=== PATIENT | male | born 1975 | race Caucasian/White ===

== ENCOUNTER 2023-09-16 07:58 | Outpatient (OUT) | payer OTHER, SELFPAY ==
[2023-09-16 08:21] LABS: Basophils Percent Auto 0.6 % (0.2-2.0); Eosinophils Absolute Auto 0.2 10^3/uL (0.0-0.7); Eosinophils Percent Auto 3.3 % (0.9-7.0); Hematocrit 47.5 % (42.0-54.0); Hemoglobin 15.9 g/dL (14.0-18.0); Immature Granulocytes Abs Auto 0.03 10^3/uL (0.00-0.03); Immature Granulocytes Pct Auto 0.5 % (0.0-0.5); Lymphocytes Absolute Auto 1.5 10^3/uL (1.2-3.8); Lymphocytes Percent Auto 23.3 % (20.5-60.0); Mean Corpuscular HGB Conc 33.5 g/dL (29.9-35.2); Mean Corpuscular Hemoglobin 28.9 pg (25.9-34.0); Mean Corpuscular Volume 86.4 fL (80.0-94.0); Mean Platelet Volume 8.6 fL (9.5-13.5); Monocytes Absolute Auto 0.6 10^3/uL (0.3-0.8); Neutrophils Percent Auto 63.3 % (43.0-75.0); Platelet Count 263 10^3/uL (150-450); Red Cell Distribution Width 13.8 % (11.0-15.0); White Blood Count 6.3 10^3/uL (4.0-11.0)
[2023-09-16 09:16] LABS: Alanine Aminotransferase 94 U/L (16-63); Albumin Globulin Ratio 1.1; Albumin Level 3.8 g/dL (3.4-5.0); Alkaline Phosphatase 57 U/L (46-116); Anion Gap 12.4; Aspartate Amino Transferase 50 U/L (15-37); BUN Creatinine Ratio 9.7; Bilirubin Total 1.6 mg/dL (0.2-1.0); Calcium 8.7 mg/dL (8.5-10.1); Carbon Dioxide 26.4 mmol/L (21.0-32.0); Chloride 106 mmol/L (98-107); Chol HDL Ratio 3.6; Cholesterol 130 mg/dL (<=200); Estimated GFR (African America >60 (>=60); Estimated GFR (Non-African Ame >60 (>=60); Globulin 3.4 g/dL; Glucose 102 mg/dL (74-106); HDL Cholesterol 36 mg/dL (40-60); Potassium 3.8 mmol/L (3.5-5.1); Sodium 141 mmol/L (136-145); Thyroid Stimulating Hormone 2.544 uIU/mL (0.358-3.740); Total Protein 7.2 g/dL (6.4-8.2); Triglycerides 253 mg/dL (<=150); VLDL CHOLESTEROL 50.6 mg/dL
[2023-09-16 09:47] LABS: Free T4 0.95 ng/dL (0.76-1.46)
== END 2023-09-16 07:59 | disposition home or self-care (01) ==
LOC: LAB 08:02
PROVIDERS: PCP Family Medicine; Visit Provider Family Medicine
DX: Z00.00 Encounter for general adult medical examination without abnormal findings (principal)
CPT/HCPCS: 36415; 80053; 80061; 84439; 84443; 85025

== ENCOUNTER 2025-04-05 08:41 | Outpatient (OUT) | payer OTHER, SELFPAY ==
--- OUTSIDE RECORDS SUMMARY | 2025-04-05 08:45 | XMS_ITS | CCD ---
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 EHR Cmte Secondary malignancies (8 sources) Secondary malignant neoplasm of lymph node; Translations: [Secondary and unspecified malignant neoplasm of lymph nodes of head, face and neck] 07-26-2023 Chronic Comment on above: Problem List clean-u p per request of Phys. EHR Cmte Secondary malignancies (2 sources) Secondary and unspecified malignant neoplasm of lymph nodes of head, face and neck; Translations: [Secondary and unspecified malignant neoplasm of lymph nodes of head, face, and neck] Onset: 02-23-2024 02-24-2024 Chronic Skin and subcutaneous tissue infections (2 sources) Cellulitis of right upper limb; Translations: [Cellulitis of right upper limb] Episodic Thyroid disorders (20 sources) Non-toxic uninodular goiter; Translations: [Nontoxic single thyroid nodule] Onset: 06-13-2023 06-13-2023 Chronic Past or Other Problems Problem Classification Problem Date Documented Da te Episodic/Chronic Diseases of mouth; excluding dental (20 sources) Sialoadenitis; Translations: [Sialoadenitis, unspecified] Onset: 06-13-2023 06-13-2023 Episodic Lymphadenitis (20 sources) Cervical lymphadenopathy; Translations: [Localized enlarged lymph nodes] Onset: 06-13-2023 06-13-2023 Episodic Mycoses (1 source) Pityriasis versicolor; Translations: [Pityriasis versicolor] Onset: 01-10-2019 Episodic Other non-traumatic joint disorders (1 source) Arthralgia of the lower leg; Translations: [Pain in unspecified knee] Onset: 06-09-2014 Episodic Other skin disorders (20 sources) Mass of neck; Translations: [Localized swelling, mass and lump, neck] Onset: 06-13-2023 06-13-2023 Episodic Residual codes; unclassified (1 source) Insomnia; Translations: [Insomnia, unspecified] Onset: 11-01-2017 Episodic Sprains and strains (20 sources) Sprain of cruciate ligament of knee; Translations: [Sprain of unspecified cruciate ligament of unspecified knee, initial encounter] Onset: 06-13-2023 06-13-2023 Episodic Results Test Name Value Interpretation Reference Range Facility CNOVon 12-13-2024 CNOV Office Visit (RADTSA ) SCARLET MAYER ([id number]) 1975 M Date Time Provider Department 12/13/24 2:30 PM YOSEF TAYLOR During your visit today, we recorded the following information about you: Temperature Pulse Respiration Blood pressure 98 degrees 61/minute 16/minute 123/87 Weight 104.6 kg Yosef Taylor MD 12/31/2024 4:59 AM Addendum Radiation Oncology - Follow Up Note PATIENT NAME: Scarlet Mayer PATIENT DIAGNOSIS/PATIENT IDENTIFICATION: Mr. 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 He completed adjuvant radiotherapy to the right neck (60Gy/30) on 05/10/21. He developed recurrence in the LEFT neck and underwent left lingual tonsillectomy, left 1A-5 neck dissection (2/15 nodes, up to 2.6cm, no definite RAJIV) on 02/23/24. He met with the head and neck team at [facility] with recommendation to proceed to post-operative radiation therapy to the left neck for local control which he completed on 05/23/2024 (6000 cGy delivered in 30 fractions). INTERVAL HISTORY: Mr. Mayer returns to clinic today for routine follow-up approximately six months after the completion of his radiation treatments and three months since his last visit on 08/05/2024. In the interim, he had repeat imaging with CT neck and chest on 12/05/2024 showing no evidence of recurrent or metastatic disease. Today he notes some tightness in the area of the neck and is slightly sensitive to touch but otherwise denies any pain or discomfort in the area notes no new lumps or bumps. He does continue with lymphedema therapy and massage for the neck and reports no loss of range of motion. He notes no new sores or ulcers in the mouth and does note some dry mouth with altered taste. He is able to swallow well and eat all consistencies endorses stable energy appetite and hydration with stable weight. ALLERGIES ALLERGIES No Known Allergies MEDICATIONS: Current Outpatient Medications: multivitamin tablet ibuprofen (MOTRIN) 200 mg tablet iv contrast (will be provided with radiology test) iv contrast (will be provided with radiology test) diphenhydrAMINE 12.5 mg/5 mL lidocaine visc 2% MAALOX 200-200-20 mg/5 mL oral liquid 1:1:1 (CPD) iv contrast (will be provided with radiology test) PHYSICAL EXAM: GENERAL: Middle-age gentleman sitting in chair in no acute distress. VITALS: BP 123/87 Pulse 61 Temp 98 Resp 16 Wt 230 lb 9.6 oz (104.6kg) SpO2 98% KPS: 90 HEENT: NC/AT, anicteric sclera HEART: S1S2 LUNGS: non-labored breathing ABDOMEN: soft MUSCULOSKELETAL: no peripheral edema, moves all extremities. NEURO: no focal deficit; AANDO X3. RADIOLOGIC DATA: CT Neck (12/05/2024) IMPRESSION: No recurrent mass, new mass or lymphadenopathy. CT Chest (12/05/2024) IMPRESSION: No metastatic disease in chest. ASSESSMENT AND PLAN: Mr. 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 He completed adjuvant radiotherapy to the right neck (60Gy/30) on 05/10/21. He developed recurrence in the LEFT neck and underwent left lingual tonsillectomy, left 1A-5 neck dissection (2/15 nodes, up to 2.6cm, no definite RAJIV) on 02/23/24. He met with the head and neck team at [facility] with recommendation to proceed to post-operative radiation therapy to the left neck for local control which he completed on 05/23/2024 (6000 cGy delivered in 30 fractions). Mr. Mayer is doing well clinically approximately a year and a half out from the completion of his radiation treatments to the head and neck. He is without clinical or radiographic in his disease based on recent CT imaging from 12/05/2024 as well as head and neck examination by Dr. Hill. I will plan to see him back in approximately 6 months for follow-up. The patient is aware to contact the clinic in the interim should any questions or concerns arise. Thank you for allowing us to participate in the care of this patient. Signed by: Yosef Taylor MD I spent a total of 20 minutes on the date of the service which included preparing to see the patient, glad-dp-othy patient care, and counseling and educating the patient/family/caregiv er. This document has been created with the use of voice recognition technology. It may contain inaccuracies, misspellings, inaccurate syntax or inappropriate word context that are a result of the inadequacies/shortcom (more content not included)... Normal [facility] CT CHEST W IVCONon CT CHEST W IVCON * * *Final Report* * * DATE OF EXAM: Dec 05 2024 9:19AM [facility] 0539 - CT CHEST W IVCON / PROCEDURE REASON: Malignant neoplasm of salivary gland (HCC) * * * * Physician Interpretation * * * * RESULT: EXAMINATION: CHEST CT WITH CONTRAST CLINICAL HISTORY: Malignant neoplasm of salivary gland (HCC) Technique: Spiral CT acquisition of the chest from the thoracic inlet to the upper abdomen following IV contrast. MQ: CTCWR_5 Contrast: 100 mL Omnipaque [address] Dose-Length Product: 1070 mGy*cm CT Dose Reduction Employed: Automated exposure control (AEC) Comparison: 07/29/2024 and 05/11/2022 RESULT: Lines, tubes, and devices: None. Lung parenchyma and airways: Trachea and central airways are patent. Unchanged 2 mm nodules left upper lobe (image 50, 53). No new suspicious appearing pulmonary nodules. No consolidative opacity. Pleural space: No pleural effusion or pneumothorax. Lower neck, lymph nodes, and mediastinum: No axillary, supraclavicular, mediastinal or hilar lymphadenopathy by CT size criteria. Heart, pericardium, and thoracic vessels: The heart is normal in size. No pericardial effusion. The thoracic aorta and main pulmonary artery are normal in caliber. Bones/Soft Tissues: No aggressive osseous lesions. Upper abdomen: Status post cholecystectomy. Small hiatal hernia. Carbonation Equipment Operator (topogram) images: Unremarkable. IMPRESSION: No metastatic disease in chest. Transcribe Date/Time: Dec 05 2024 9:39A Dictated by: JANET BRADY MD This examination was interpreted and the report reviewed and electronically signed by: JANET BRADY MD on Dec 05 2024 9:47AM EST Thank you for allowing us to participate in the care of your patient. Should there be any questions regarding this interpretation, please call [phone]. If you are unable to reach us at the number above, please feel free to contact [facility] at [phone]. [id number] Normal [facility] CT NECK SOFT TISSUE W IVCONo n 12-05-2024 CT NECK SOFT TISSUE W IVCON * * *Final Report* * * DATE OF EXAM: Dec 05 2024 9:19AM [facility] 0013 - CT NECK SOFT TISSUE W IVCON / PROCEDURE REASON: Malignant neoplasm of salivary gland (HCC) * * * * Physician Interpretation * * * * RESULT: EXAMINATION: CT NECK SOFT TISSUE W IVCON HISTORY: Metastatic lesions in the left neck status post resection and radiation Technique: CT of the soft tissues of the neck with IV contrast. A series of contiguous helical scans were performed from the skull base to the aortic arch. M: [id number]_1 Contrast: 100 mL Omnipaque [address] Dose-Length Product (DLP): 1070 mGy*cm CT Dose Reduction Employed: Automated exposure control (AEC) COMPARISON: Neck CT 07/29/2024 and neck CTs dating back to 07/16/2021. Outside hospital CT 01/15/2024. RESULT: Postoperative change: There are unchanged postoperative findings related to a partial right pharyngectomy, right lingual tonsillectomy, left palatine tonsillectomy with surgical clips along the dorsal aspect of the right tongue and bilateral neck dissection, as well as a surgical clip along the left parotid gland. There has been interval decrease in stranding along the left buccal soft tissues and slight interval decrease in thickening of the left platysma muscle, likely resolving posttreatment changes. Suprahyoid Neck: Nasopharynx and oropharynx appear normal. Parapharyngeal tissue planes are preserved. Oral cavity and floor of mouth appear normal within constraints of artifact from dental amalgam. Parotid and submandibular spaces are normal. Masonry Instructor spaces appear normal. Infrahyoid Neck: Hypopharynx, larynx, and imaged infraglottic trachea appear normal. Imaged upper esophagus is unremarkable. Thyroid gland is homogeneous without evidence of discrete nodule. Lymph Nodes: No cervical lymphadenopathy by size criteria. Carotid Space: No masses. Patent extracranial carotid systems and internal jugular veins bilaterally. Orbits, Face and Skull Base: Orbital soft tissue planes are preserved. . Paranasal sinuses are clear. . Mastoid air cells and middle ear cavities are clear. . No evidence of an osteolytic or osteoblastic process in the skull base. . . Imaged intracranial contents: No enhancement, no mass effect, and no hydrocephalus. Cervical spine and remaining osseous structures: Alignment is normal. No discrete osteolytic or osteoblastic process. Mild spondylotic changes in the visualized spine. Lung apices: No mass and no focal consolidation in imaged lung apices. Other: Not applicable. Carbonation Equipment Operator (topogram) images: No significant findings. IMPRESSION: No recurrent mass, new mass or lymphadenopathy. Transcribe Date/Time: Dec 05 2024 9:59A Dictated by: LUCIA MARRERO MD This examination was interpreted and the report reviewed and electronically signed by: LUCIA MARRERO MD on Dec 05 2024 10:17AM EST Thank you for allowing us to participate in the care of your patient. Should there be any questions regarding this interpretation, please call [phone]. If you are unable to reach us at the number above, please feel free to contact [facility] at [phone]. [id number] Normal [facility] CNTHERAPYon 08-21-2024 CNTHERAPY OT/PT/Speech Visit (OTACOF) SCARLET MAYER ([id number]) 1975 M Date Time Provider Department 08/21/24 10:00 AM KOMAL MENDOZA Date Time Provider Department [place] 08/21/2024 10:00 AM [id number] MENDOZA [facility] Reason for Visit: OT Progress Note [159] Primary Visit Diagnosis:Lymphedema [I89.0] Other Visit Diagnosis: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] Allergies As of Date: 08/21/2024 (No Known Allergies) Date Reviewed: 08/05/2024 Reviewed by: Denisse Ervin, RN - Fully Assessed Prescriptions as of 08/21/2024 - iv contrast (will be provided with radiology test) CT Chest W -Inject, intravenously, once for 1 dose.No IV access, insert saline lock prior to the beginning of sedation, infusion, injection of imaging exam. Discontinue saline lock post exam. If Pt. has a central line or IVAD, may access for administration according to line specific nursing protocol. Once exam is complete flush line and de-access according to line specific nursing protocol in the CT contrast administration guidelines link. - diphenhydrAMINE 12.5 mg/5 mL lidocaine visc 2% MAALOX 200-200-20 mg/5 mL oral liquid 1:1:1 (CPD) Take (swish) 5 mL to 10 mL by mouth and swallow (allowing to coat the back of the throat) 5 to 6 times a day as needed for discomfort including before meals and before bedtime - multivitamin tablet Take 1 tablet by mouth once daily. - iv contrast (will be provided with radiology test) CT Chest W -Inject, intravenously, once for 1 dose.No IV access, insert saline lock prior to the beginning of sedation, infusion, injection of imaging exam. Discontinue saline lock post exam. If Pt. has a central line or IVAD, may access for administration according to line specific nursing protocol. Once exam is complete flush line and de-access according to line specific nursing protocol in the CT contrast administration guidelines link. - ibuprofen (MOTRIN) 200 mg tablet Take 400 mg by mouth every 6 hours as needed. Normal [facility] 08-06-2024 CNPN Telephone (RADTSA) SCARLET MAYER ([id number]) 1975 M Date Time Provider Department 08/06/24 YOSEF TAYLOR During your visit today, we recorded the following information about you: Denisse Ervin RN 08/06/2024 10:22 AM Signed Paige, pt's , notified of Dr. Taylor's recommendation. She denies questions at this time. JUDY Carranza Saju, MD sent to Denisse Ervin RN Cc: Sahra Infante RN Please let the Bernabe' know that TSH value is within range and he should continue thyroid function assessment with his annual bloodwork with his PCP. Thanks! Yosef Allergies As of Date: 08/06/2024 (No Known Allergies) Date Reviewed: 08/05/2024 Reviewed by: Denisse Ervin RN - Fully Assessed Reason for Visit: Results [95] Prescriptions as of 08/06/2024 - iv contrast (will be provided with radiology test) CT Chest W -Inject, intravenously, once for 1 dose.No IV access, insert saline lock prior to the beginning of sedation, infusion, injection of imaging exam. Discontinue saline lock post exam. If Pt. has a central line or IVAD, may access for administration according to line specific nursing protocol. Once exam is complete flush line and de-access according to line specific nursing protocol in the CT contrast administration guidelines link. - iv contrast (will be provided with radiology test) CT Chest W -Inject, intravenously, once for 1 dose.No IV access, insert saline lock prior to the beginning of sedation, infusion, injection of imaging exam. Discontinue saline lock post exam. If Pt. has a central line or IVAD, may access for administration according to line specific nursing protocol. Once exam is complete flush line and de-access according to line specific nursing protocol in the CT contrast administration guidelines link. - diphenhydrAMINE 12.5 mg/5 mL lidocaine visc 2% MAALOX 200-200-20 mg/5 mL oral liquid 1:1:1 (CPD) Take (swish) 5 mL to 10 mL by mouth and swallow (allowing to coat the back of the throat) 5 to 6 times a day as needed for discomfort including before meals and before bedtime - multivitamin tablet Take 1 tablet by mouth once daily. - iv contrast (will be provided with radiology test) CT Chest W -Inject, intravenously, once for 1 dose.No IV access, insert saline lock prior to the beginning of sedation, infusion, injection of imaging exam. Discontinue saline lock post exam. If Pt. has a central line or IVAD, may access for administration according to line specific nursing protocol. Once exam is complete flush line and de-access according to line specific nursing protocol in the CT contrast administration guidelines link. - ibuprofen (MOTRIN) 200 mg tablet Take 400 mg by mouth every 6 hours as needed. Problem List As Of Date 08/06/2024 Noted Resolved Malignant neoplasm of salivary gland (HCC) [C08*03/10/2021 Lymphedema [I89.0] 03/28/2024 Encounter Status:Closed by DENISSE ERVIN on 08/06/24 Normal [facility] THYROID STIMULATING HORMONEo n 08-06-2024 TSH Qn 3.660 m[IU]/L [facility] TSH Qnon 08-06-2024 Interpretation and review of laboratory results Normal [facility] CNOVon 08-05-2024 CNOV Office Visit (RADTSA ) SCARLET MAYER ([id number]) 1975 M Date Time Provider Department 08/05/24 2:00 PM YOSEF TAYLOR RADTSA During your visit today, we recorded the following information about you: Temperature Pulse Respiration Blood pressure 97.6 degrees 67/minute 16/minute 136/91 Weight 102.9 kg Yosef Taylor MD 10/08/2024 12:08 AM Addendum Radiation Oncology - Follow Up Note PATIENT NAME: Scarlet Mayer PATIENT DIAGNOSIS/PATIENT IDENTIFICATION: Mr. 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 He completed adjuvant radiotherapy to the right neck (60Gy/30) on 05/10/21. He developed recurrence in the LEFT neck and underwent left lingual tonsillectomy, left 1A-5 neck dissection (2/15 nodes, up to 2.6cm, no definite RAJIV) on 02/23/24. He met with the head and neck team at [facility] with recommendation to proceed to post-operative radiation therapy to the left neck for local control which he completed on 05/23/2024 (6000 cGy delivered in 30 fractions). INTERVAL HISTORY: Mr. Mayer returns to clinic today for routine follow-up approximately three months after the completion of his radiation treatments and two months since his last visit on 06/21/2024. In the interim, initial posttreatment imaging with the CT of the neck and chest on 07/29/2024 showed expected posttreatment changes in the left neck with no concern for recurrent disease. Today he reports no pain or discomfort in the head and neck area but does feel that his left ear is little sensitive. His skin is recovered and uses a moisturizer occasionally with no new lumps or bumps in the neck or skin irritation/breakdown. He denies any sores or ulcers in the mouth and does note some dry mouth and altered taste. He is able to swallow well and able to eat most consistencies. He notes stable energy with good appetite and hydration stable weight. He does note some posttreatment swelling/edema in the central neck and he has been following with the lymphedema clinic. He met recently with Dr. Hill and had no concerns on clinical head and neck examination. ALLERGIES ALLERGIES No Known Allergies MEDICATIONS: Current Outpatient Medications: multivitamin tablet ibuprofen (MOTRIN) 200 mg tablet iv contrast (will be provided with radiology test) diphenhydrAMINE 12.5 mg/5 mL lidocaine visc 2% MAALOX 200-200-20 mg/5 mL oral liquid 1:1:1 (CPD) iv contrast (will be provided with radiology test) PHYSICAL EXAM: GENERAL: Middle-age gentleman sitting in chair in no acute distress. VITALS: BP 136/91 Pulse 67 Temp 97.6 Resp 16 Wt 226 lb 13.7 oz (102.9kg) SpO2 98% KPS: 90 HEENT: NC/AT, anicteric sclera HEART: S1S2 LUNGS: non-labored breathing ABDOMEN: soft MUSCULOSKELETAL: no peripheral edema, moves all extremities. NEURO: no focal deficit; AANDO X3. RADIOLOGIC DATA: CT Neck (07/29/2024) IMPRESSION: New soft tissue reticulated stranding in the left submental region, overlying skin thickening and thickening of the left platysma muscle. There is also new asymmetric edema/soft tissue prominence at the left aryepiglottic fold. Findings could be related to progressive radiation-induced changes from the prior examination. No clear new soft tissue mass otherwise within the constraints of motion through the lower oropharynx and upper hypopharynx. No new or evolving suspicious adenopathy by size criteria. CT Chest (07/29/2024) IMPRESSION: 1. Stable CT of the chest. Unchanged appearance of left upper lobe nodules measuring up to 2 mm. No new or enlarging nodules are seen. 2. No evidence of intrathoracic lymphadenopathy. ASSESSMENT AND PLAN: Mr. 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 He completed adjuvant radiotherapy to the right neck (60Gy/30) on 05/10/21. He developed recurrence in the LEFT neck and underwent left lingual tonsillectomy, left 1A-5 neck dissection (2/15 nodes, up to 2.6cm, no definite RAJIV) on 02/23/24. He met with the head and neck team at [facility] with recommendation to proceed to post-operative radiation therapy to the left neck for local control which he completed on 05/23/2024 (6000 cGy delivered in 30 fractions). Mr. Mayer is doing as expected approximately 3 months after completion of his postoperative radiation treatments to the left head and neck havi (more content not included)... Normal [facility] TSH SerPl-aCncon 08-05-2024 TSH Qn 3.660 m[IU]/L Normal 0.270-4.200 [facility] Comment on above: Order Comment: Speci men Type: BLOOD SPECIMENOrdering Facility: [facility] Address: [address] [place] [address] Performed By: #### 3 016-3 ####[facility] LABCLIA [id number] [place] [address] [place] [address] CHEST W IVCONon 4 CT CHEST W IVCON * * *Final Report* * * DATE OF EXAM: Jul 29 2024 10:18AM [facility] 0539 - CT CHEST W IVCON / PROCEDURE REASON: multiple diagnoses * * * * Physician Interpretation * * * * RESULT: EXAMINATION: CHEST CT WITH CONTRAST CLINICAL HISTORY: Malignant neoplasm of salivary gland. Technique: Spiral CT acquisition of the chest from the thoracic inlet to the upper abdomen following IV contrast. MQ: [id number]_6 Contrast: 95 mL Omnipaque [address] Radiation dose: Integrated Dose-length product (DLP) for this visit = 1149 mGy*cm CT Dose Reduction Employed: Automated exposure control (AEC) Comparison: CT chest performed 05/11/2022. PET/CT performed 01/15/2024 RESULT: Limitations: None. Lines, tubes, and devices: None. Lung parenchyma and airways: No lobar consolidation is seen. Stable 2 mm nodules are again noted in the left upper lobe (4:44). No new or enlarging nodules are identified. The central airways are widely patent. Pleural space: No pleural effusion. No pleural thickening. Lower neck, lymph nodes, and mediastinum: The imaged thyroid gland is normal. No lymphadenopathy in the supraclavicular, axillary, mediastinal, or hilar regions. Heart, pericardium, and thoracic vessels: The thoracic aorta and main pulmonary artery are normal in caliber. The cardiac chambers are normal in size. No coronary artery atherosclerotic calcifications are noted, although the study is not optimized for coronary assessment. No pericardial effusion or thickening. Bones and soft tissues: No destructive bone lesion. Chest wall is unremarkable. Upper abdomen: No abnormality in the imaged upper abdomen. Localizer images: No additional findings. IMPRESSION: 1. Stable CT of the chest. Unchanged appearance of left upper lobe nodules measuring up to 2 mm. No new or enlarging nodules are seen. 2. No evidence of intrathoracic lymphadenopathy. Transcribe Date/Time: Jul 29 2024 4:10P Dictated by: MOI ROSSI MD This examination was interpreted and the report reviewed and electronically signed by: MOI ROSSI MD on Jul 29 2024 4:19PM EST Thank you for allowing us to participate in the care of your patient. Should there be any questions regarding this interpretation, please call [phone]. If you are unable to reach us at the number above, please feel free to contact [facility] at [phone]. [id number] Normal [facility] CT Chest W contrast [place] IMPRESSION: 1. Stable CT of the chest. Unchanged appearance of left upper lobe nodules measuring up to 2 mm. No new or enlarging nodules are seen. 2. No evidence of intrathoracic lymphadenopathy. Transcribe Date/Time: Jul 29 2024 4:10P Dictated by: MOI ROSSI MD This examination was interpreted and the report reviewed and electronically signed by: MOI ROSSI MD on Jul 29 2024 4:19PM EST Thank you for allowing us to participate in the care of your patient. Should there be any questions regarding this interpretation, please call [phone]. If you are unable to reach us at the number above, please feel free to contact [facility] at [phone]. 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 Technique: Spiral CT acquisition of the chest from the thoracic inlet to the upper abdomen following IV contrast. MQ: CTCW_6 Contrast: 95 mL Omnipaque [address] Radiation dose: Integrated Dose-length product (DLP) for this visit = 1149 mGy*cm CT Dose Reduction Employed: Automated exposure control (AEC) Comparison: CT chest performed 05/11/2022. PET/CT performed 01/15/2024 RESULT: Limitations: None. Lines, tubes, and devices: None. Lung parenchyma and airways: No lobar consolidation is seen. Stable 2 mm nodules are again noted in the left upper lobe (4:44). No new or enlarging nodules are identified. The central airways are widely patent. Pleural space: No pleural effusion. No pleural thickening. Lower neck, lymph nodes, and mediastinum: The imaged thyroid gland is normal. No lymphadenopathy in the supraclavicular, axillary, mediastinal, or hilar regions. Heart, pericardium, and thoracic vessels: The thoracic aorta and main pulmonary artery are normal in caliber. The cardiac chambers are normal in size. No coronary artery atherosclerotic calcifications are noted, although the study is not optimized for coronary assessment. No pericardial effusion or thickening. Bones and soft tissues: No destructive bone lesion. Chest wall is unremarkable. Upper abdomen: No abnormality in the imaged upper abdomen. Localizer images: No additional findings. 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 Technique: Spiral CT acquisition of the chest from the thoracic inlet to the upper abdomen following IV contrast. MQ: CTCW_6 Contrast: 95 mL Omnipaque [address] Radiation dose: Integrated Dose-length product (DLP) for this visit = 1149 mGy*cm CT Dose Reduction Employed: Automated exposure control (AEC) Comparison: CT chest performed 05/11/2022. PET/CT performed 01/15/2024 RESULT: Limitations: None. Lines, tubes, and devices: None. Lung parenchyma and airways: No lobar consolidation is seen. Stable 2 mm nodules are again noted in the left upper lobe (4:44). No new or enlarging nodules are identified. The central airways are widely patent. Pleural space: No pleural effusion. No pleural thickening. Lower neck, lymph nodes, and mediastinum: The imaged thyroid gland is normal. No lymphadenopathy in the supraclavicular, axillary, mediastinal, or hilar regions. Heart, pericardium, and thoracic vessels: The thoracic aorta and main pulmonary artery are normal in caliber. The cardiac chambers are normal in size. No coronary artery atherosclerotic calcifications are noted, although the study is not optimized for coronary assessment. No pericardial effusion or thickening. Bones and soft tissues: No destructive bone lesion. Chest wall is unremarkable. Upper abdomen: No abnormality in the imaged upper abdomen. Localizer images: No additional findings. IMPRESSION IMPRESSION: 1. Stable CT of the chest. Unchanged appearance of left upper lobe nodules measuring up to 2 mm. No new or enlarging nodules are seen. 2. No evidence of intrathoracic lymphadenopathy. Transcribe Date/Time: Jul 29 2024 4:10P Dictated by: MOI ROSSI MD This examination was interpreted and the report reviewed and electronically signed by: MOI ROSSI MD on Jul 29 2024 4:19PM EST Thank you for allowing us to participate in the care of your patient. Should there be any questions regarding this interpretation, please call [phone]. If you are unable to reach us at the number above, please feel free to contact [facility] at [phone]. 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 Tonsillectomy, pharyngectomy, neck dissection and radiotherapy. History of recurrence in the left neck with previous left lingual tonsillectomy. Comparison: Soft tissue neck CT 05/11/2022, outside hospital Neck CT WITH 03/20/2024 Technique: A series of contiguous helical scans were performed from the skull base to the aortic arch with intravenous contrast. Contrast: Omnipaque 350. Contrast Dose: 95 cc Route of Administration: Intra-Articular CT Radiation dose: Integrated Dose-length product (DLP) for this visit = 1149 mGy*cm. CT Dose Reduction Employed: Automated exposure control (AEC) RESULT: Postoperative change: There are again changes of right tonsillectomy and partial pharyngectomy. Surgical clips in both submandibular regions. Distortion of the normal anatomic planes in the right parapharyngeal fat extending to the submandibular region as well as the left lateral subarticular region from prior surgical intervention. Patchy soft tissue and subcutaneous fat reticulations over the left submental region appears increased from the 03/20/2024 examination. There is also increased overlying skin thickening and thickening of the left distal muscle. There is mild motion to the inferior oropharynx and superior hypopharyngeal region which distorts evaluation of the normal anatomy in this region. There is minimal asymmetric thickening of the left aryepiglottic fold which appears new from the prior exam. Nasopharyngeal mucosal planes are within normal limits. Masonry Instructor spaces are normal. Pterygopalatine fossae are clear and symmetric. Fatty atrophy of the parotid glands. Submandibular glands are absent or severely atrophic. Few surgical clips along the left carotid sheath and right sternocleidomastoid muscle likely from prior ilya dissection. Infrahyoid Neck: Hypopharynx, larynx, and imaged infraglottic trachea appear normal. Imaged upper esophagus is unremarkable. Thyroid gland is homogeneous without evidence of discrete nodule. Lymph Nodes: No cervical lymphadenopathy by size criteria. Carotid Space: No masses. Patent extracranial carotid systems and internal jugular veins bilaterally. Orbits, Face and Skull Base: Orbital soft tissue planes are preserved. Paranasal sinuses are clear. Mastoid air cells and middle ear cavities are clear. No evidence of an osteolytic or osteoblastic process in the skull base. Imaged intracranial contents: No abnormal intracranial enhancement, mass effect, or hydrocephalus. Cervical spine and remaining osseous structures: No discrete osteolytic or osteoblastic process. Mild spondylotic changes in the visualized spine. Lung apices: Imaged lung apices are clear of focal consolidation or mass. Other: Not applicable. IMPRESSION: New soft tissue reticulated stranding in the left submental region, overlying skin thickening and thickening of the left platysma muscle. There is also new asymmetric edema/soft tissue prominence at the left aryepiglottic fold. Findings could be related to progressive radiation-induced changes from the prior examination. No clear new soft tissue mass otherwise within the constraints of motion through the lower oropharynx and upper hypopharynx. No new or evolving suspicious adenopathy by size criteria. Transcribe Date/Time: Jul 29 2024 10:24A Dictated by: PRISCILLA BLEVINS DO This examination was interpreted and the report reviewed and electronically signed by: PRISCILLA BLEVINS DO on Jul 29 2024 10:42AM EST Thank you for allowing us to participate in the care of your patient. Should there be any questions regarding this interpretation, please call [phone]. If you are unable to reach us at the number above, please feel free to contact [facility] at [phone]. [id number] Normal [facility] CT Neck W contrast [place]ordo 12-1 IMPRESSION: New soft tissue reticulated stranding in the left submental region, overlying skin thickening and thickening of the left platysma muscle. There is also new asymmetric edema/soft tissue prominence at the left aryepiglottic fold. Findings could be related to progressive radiation-induced changes from the prior examination. No clear new soft tissue mass otherwise within the constraints of motion through the lower oropharynx and upper hypopharynx. No new or evolving suspicious adenopathy by size criteria. Transcribe Date/Time: Jul 29 2024 10:24A Dictated by: PRISCILLA BLEVINS DO This examination was interpreted and the report reviewed and electronically signed by: PRISCILLA BLEVINS DO on Jul 29 2024 10:42AM EST Thank you for allowing us to participate in the care of your patient. Should there be any questions regarding this interpretation, please call [phone]. If you are unable to reach us at the number above, please feel free to contact [facility] at [phone]. 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 Tonsillectomy, pharyngectomy, neck dissection and radiotherapy. History of recurrence in the left neck with previous left lingual tonsillectomy. Comparison: Soft tissue neck CT 05/11/2022, outside hospital Neck CT WITH 03/20/2024 Technique: A series of contiguous helical scans were performed from the skull base to the aortic arch with intravenous contrast. Contrast: Omnipaque 350. Contrast Dose: 95 cc Route of Administration: Intra-Articular CT Radiation dose: Integrated Dose-length product (DLP) for this visit = 1149 mGy*cm. CT Dose Reduction Employed: Automated exposure control (AEC) RESULT: Postoperative change: There are again changes of right tonsillectomy and partial pharyngectomy. Surgical clips in both submandibular regions. Distortion of the normal anatomic planes in the right parapharyngeal fat extending to the submandibular region as well as the left lateral subarticular region from prior surgical intervention. Patchy soft tissue and subcutaneous fat reticulations over the left submental region appears increased from the 03/20/2024 examination. There is also increased overlying skin thickening and thickening of the left distal muscle. There is mild motion to the inferior oropharynx and superior hypopharyngeal region which distorts evaluation of the normal anatomy in this region. There is minimal asymmetric thickening of the left aryepiglottic fold which appears new from the prior exam. Nasopharyngeal mucosal planes are within normal limits. Masonry Instructor spaces are normal. Pterygopalatine fossae are clear and symmetric. Fatty atrophy of the parotid glands. Submandibular glands are absent or severely atrophic. Few surgical clips along the left carotid sheath and right sternocleidomastoid muscle likely from prior ilya dissection. Infrahyoid Neck: Hypopharynx, larynx, and imaged infraglottic trachea appear normal. Imaged upper esophagus is unremarkable. Thyroid gland is homogeneous without evidence of discrete nodule. Lymph Nodes: No cervical lymphadenopathy by size criteria. Carotid Space: No masses. Patent extracranial carotid systems and internal jugular veins bilaterally. Orbits, Face and Skull Base: Orbital soft tissue planes are preserved. Paranasal sinuses are clear. Mastoid air cells and middle ear cavities are clear. No evidence of an osteolytic or osteoblastic process in the skull base. Imaged intracranial contents: No abnormal intracranial enhancement, mass effect, or hydrocephalus. Cervical spine and remaining osseous structures: No discrete osteolytic or osteoblastic process. Mild spondylotic changes in the visualized spine. Lung apices: Imaged lung apices are clear of focal consolidation or mass. Other: Not applicable. 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 Tonsillectomy, pharyngectomy, neck dissection and radiotherapy. History of recurrence in the left neck with previous left lingual tonsillectomy. Comparison: Soft tissue neck CT 05/11/2022, outside hospital Neck CT WITH 03/20/2024 Technique: A series of contiguous helical scans were performed from the skull base to the aortic arch with intravenous contrast. Contrast: Omnipaque 350. Contrast Dose: 95 cc Route of Administration: Intra-Articular CT Radiation dose: Integrated Dose-length product (DLP) for this visit = 1149 mGy*cm. CT Dose Reduction Employed: Automated exposure control (AEC) RESULT: Postoperative change: There are again changes of right tonsillectomy and partial pharyngectomy. Surgical clips in both submandibular regions. Distortion of the normal anatomic planes in the right parapharyngeal fat extending to the submandibular region as well as the left lateral subarticular region from prior surgical intervention. Patchy soft tissue and subcutaneous fat reticulations over the left submental region appears increased from the 03/20/2024 examination. There is also increased overlying skin thickening and thickening of the left distal muscle. There is mild motion to the inferior oropharynx and superior hypopharyngeal region which distorts evaluation of the normal anatomy in this region. There is minimal asymmetric thickening of the left aryepiglottic fold which appears new from the prior exam. Nasopharyngeal mucosal planes are within normal limits. Masonry Instructor spaces are normal. Pterygopalatine fossae are clear and symmetric. Fatty atrophy of the parotid glands. Submandibular glands are absent or severely atrophic. Few surgical clips along the left carotid sheath and right sternocleidomastoid muscle likely from prior ilya dissection. Infrahyoid Neck: Hypopharynx, larynx, and imaged infraglottic trachea appear normal. Imaged upper esophagus is unremarkable. Thyroid gland is homogeneous without evidence of discrete nodule. Lymph Nodes: No cervical lymphadenopathy by size criteria. Carotid Space: No masses. Patent extracranial carotid systems and internal jugular veins bilaterally. Orbits, Face and Skull Base: Orbital soft tissue planes are preserved. Paranasal sinuses are clear. Mastoid air cells and middle ear cavities are clear. No evidence of an osteolytic or osteoblastic process in the skull base. Imaged intracranial contents: No abnormal intracranial enhancement, mass effect, or hydrocephalus. Cervical spine and remaining osseous structures: No discrete osteolytic or osteoblastic process. Mild spondylotic changes in the visualized spine. Lung apices: Imaged lung apices are clear of focal consolidation or mass. Other: Not applicable. IMPRESSION IMPRESSION: New soft tissue reticulated stranding in the left submental region, overlying skin thickening and thickening of the left platysma muscle. There is also new asymmetric edema/soft tissue prominence at the left aryepiglottic fold. Findings could be related to progressive radiation-induced changes from the prior examination. No clear new soft tissue mass otherwise within the constraints of motion through the lower oropharynx and upper hypopharynx. No new or evolving suspicious adenopathy by size criteria. Transcribe Date/Time: Jul 29 2024 10:24A Dictated by: PRISCILLA BLEVINS, DO This examination was interpreted and the report reviewed and electronically signed by: PRISCILLA BLEVINS DO on Jul 29 2024 10:42AM EST Thank you for allowing us to participate in the care of your patient. Should there be any questions regarding this interpretation, please call [phone]. If you are unable to reach us at the number above, please feel free to contact [facility] at [phone]. [facility] No Panel Informationon 07-29 Radiology Study observation (narrative) [facility] CNPNon 07-25-2024 CNPN Telephone (OTMNCA) SCARLET MAYER ([id number]) 1975 [place] Date Time Provider Department 07/25/24 NEHA HINES During your visit today, we recorded the following information about you: Neha Hines APRN.CATHY 07/25/2024 12:56 PM Signed Received forms from [employer] for [employer] for patient, however this pt is followed by a provider in [place], not seen by our office in 3 yrs. Requested that [employer] forward their request to his current provider. Neha Hines APRN.LATEX SPOOLER Allergies As of Date: 07/25/2024 (No Known Allergies) Date Reviewed: 06/21/2024 Reviewed by: Denisse Ervin LPN - Fully Assessed Reason for Visit: Orders [681] Prescriptions as of 07/25/2024 - iv contrast (will be provided with radiology test) CT Chest W -Inject, intravenously, once for 1 dose.No IV access, insert saline lock prior to the beginning of sedation, infusion, injection of imaging exam. Discontinue saline lock post exam. If Pt. has a central line or IVAD, may access for administration according to line specific nursing protocol. Once exam is complete flush line and de-access according to line specific nursing protocol in the CT contrast administration guidelines link. - diphenhydrAMINE 12.5 mg/5 mL lidocaine visc 2% MAALOX 200-200-20 mg/5 mL oral liquid 1:1:1 (CPD) Take (swish) 5 mL to 10 mL by mouth and swallow (allowing to coat the back of the throat) 5 to 6 times a day as needed for discomfort including before meals and before bedtime - multivitamin tablet Take 1 tablet by mouth once daily. - iv contrast (will be provided with radiology test) CT Chest W -Inject, intravenously, once for 1 dose.No IV access, insert saline lock prior to the beginning of sedation, infusion, injection of imaging exam. Discontinue saline lock post exam. If Pt. has a central line or IVAD, may access for administration according to line specific nursing protocol. Once exam is complete flush line and de-access according to line specific nursing protocol in the CT contrast administration guidelines link. - ibuprofen (MOTRIN) 200 mg tablet Take 400 mg by mouth every 6 hours as needed. Problem List As Of Date 07/25/2024 Noted Resolved Malignant neoplasm of salivary gland (HCC) [C08*03/10/2021 Lymphedema [I89.0] 03/28/2024 Encounter Status:Closed by NEHA HINES on 07/25/[address] [facility] CNTHERAPYon 07-17-2024 CNTHERAPY OT/PT/Speech Visit (OTACOF) SCARLET MAYER ([id number]) 1975 M Date Time Provider Department 07/17/24 11:00 AM KOMAL MENDOZA Date Time Provider Department Center 07/17/2024 11:00 AM [id number] MENDOZA [facility] Reason for Visit: Occupational Therapy [504] Primary Visit Diagnosis:Lymphedema [I89.0] Other Visit Diagnosis: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] Allergies As of Date: 07/17/2024 (No Known Allergies) Date Reviewed: 06/21/2024 Reviewed by: Denisse Ervin LPN - Fully Assessed Prescriptions as of 07/17/2024 - iv contrast (will be provided with radiology test) CT Chest W -Inject, intravenously, once for 1 dose.No IV access, insert saline lock prior to the beginning of sedation, infusion, injection of imaging exam. Discontinue saline lock post exam. If Pt. has a central line or IVAD, may access for administration according to line specific nursing protocol. Once exam is complete flush line and de-access according to line specific nursing protocol in the CT contrast administration guidelines link. - diphenhydrAMINE 12.5 mg/5 mL lidocaine visc 2% MAALOX 200-200-20 mg/5 mL oral liquid 1:1:1 (CPD) Take (swish) 5 mL to 10 mL by mouth and swallow (allowing to coat the back of the throat) 5 to 6 times a day as needed for discomfort including before meals and before bedtime - multivitamin tablet Take 1 tablet by mouth once daily. - iv contrast (will be provided with radiology test) CT Chest W -Inject, intravenously, once for 1 dose.No IV access, insert saline lock prior to the beginning of sedation, infusion, injection of imaging exam. Discontinue saline lock post exam. If Pt. has a central line or IVAD, may access for administration according to line specific nursing protocol. Once exam is complete flush line and de-access according to line specific nursing protocol in the CT contrast administration guidelines link. - ibuprofen (MOTRIN) 200 mg tablet Take 400 mg by mouth every 6 hours as needed. Normal [facility] CNTHERAPYon 07-10-2024 CNTHERAPY OT/PT/Speech Visit (OTACOF) SCARLET MAYER ([id number]) 1975 M Date Time Provider Department 07/10/24 11:00 AM KOMAL MENDOZA Date Time Provider Department Center 07/10/2024 11:00 AM [id number] MENDOZA [facility] Reason for Visit: Occupational Therapy [504] Primary Visit Diagnosis:Lymphedema [I89.0] Other Visit Diagnosis: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] Allergies As of Date: 07/10/2024 (No Known Allergies) Date Reviewed: 06/21/2024 Reviewed by: Denisse Ervin LPN - Fully Assessed Prescriptions as of 07/10/2024 - iv contrast (will be provided with radiology test) CT Chest W -Inject, intravenously, once for 1 dose.No IV access, insert saline lock prior to the beginning of sedation, infusion, injection of imaging exam. Discontinue saline lock post exam. If Pt. has a central line or IVAD, may access for administration according to line specific nursing protocol. Once exam is complete flush line and de-access according to line specific nursing protocol in the CT contrast administration guidelines link. - diphenhydrAMINE 12.5 mg/5 mL lidocaine visc 2% MAALOX 200-200-20 mg/5 mL oral liquid 1:1:1 (CPD) Take (swish) 5 mL to 10 mL by mouth and swallow (allowing to coat the back of the throat) 5 to 6 times a day as needed for discomfort including before meals and before bedtime - multivitamin tablet Take 1 tablet by mouth once daily. - iv contrast (will be provided with radiology test) CT Chest W -Inject, intravenously, once for 1 dose.No IV access, insert saline lock prior to the beginning of sedation, infusion, injection of imaging exam. Discontinue saline lock post exam. If Pt. has a central line or IVAD, may access for administration according to line specific nursing protocol. Once exam is complete flush line and de-access according to line specific nursing protocol in the CT contrast administration guidelines link. - ibuprofen (MOTRIN) 200 mg tablet Take 400 mg by mouth every 6 hours as needed. [facility] 07-04-2024 CATHYN Telephone (HEMTSA) LEYLASCARLET ([id number]) 1975 M Date Time Provider Department 07/04/24 YOSEF TAYLOR During your visit today, we recorded the following information about you: Edwardo Garcia RN 07/04/2024 3:05 PM Signed Please sign pended CT orders Thank You! JUDY Lemon Saju, MD 07/04/2024 4:10 PM Signed Signed - thanks! Yosef Allergies As of Date: 07/04/2024 (No Known Allergies) Date Reviewed: 06/21/2024 Reviewed by: Denisse Ervin LPN - Fully Assessed Reason for Visit: Orders [681] Prescriptions as of 07/05/2024 - iv contrast (will be provided with radiology test) CT Chest W -Inject, intravenously, once for 1 dose.No IV access, insert saline lock prior to the beginning of sedation, infusion, injection of imaging exam. Discontinue saline lock post exam. If Pt. has a central line or IVAD, may access for administration according to line specific nursing protocol. Once exam is complete flush line and de-access according to line specific nursing protocol in the CT contrast administration guidelines link. - diphenhydrAMINE 12.5 mg/5 mL lidocaine visc 2% MAALOX 200-200-20 mg/5 mL oral liquid 1:1:1 (CPD) Take (swish) 5 mL to 10 mL by mouth and swallow (allowing to coat the back of the throat) 5 to 6 times a day as needed for discomfort including before meals and before bedtime - multivitamin tablet Take 1 tablet by mouth once daily. - iv contrast (will be provided with radiology test) CT Chest W -Inject, intravenously, once for 1 dose.No IV access, insert saline lock prior to the beginning of sedation, infusion, injection of imaging exam. Discontinue saline lock post exam. If Pt. has a central line or IVAD, may access for administration according to line specific nursing protocol. Once exam is complete flush line and de-access according to line specific nursing protocol in the CT contrast administration guidelines link. - ibuprofen (MOTRIN) 200 mg tablet Take 400 mg by mouth every 6 hours as needed. 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 Lymphedema [I89.0] 03/28/2024 Encounter Status:Closed by EDWARDO GARCIA on 07/05/24 [facility] CNTHERAPYon 07-03-2024 CNTHERAPY OT/PT/Speech Visit (OTACOF) SACRLET MAYER ([id number]) 1975 M Date Time Provider Department 07/03/24 11:00 AM KOMAL MENDOZA Date Time Provider Department Center 07/03/2024 11:00 AM [id number] MENDOZA [facility] Reason for Visit: Occupational Therapy [504] Primary Visit Diagnosis:Lymphedema [I89.0] Allergies As of Date: 07/03/2024 (No Known Allergies) Date Reviewed: 06/21/2024 Reviewed by: Denisse Ervin LPN - Fully Assessed Prescriptions as of 07/03/2024 - diphenhydrAMINE 12.5 mg/5 mL lidocaine visc 2% MAALOX 200-200-20 mg/5 mL oral liquid 1:1:1 (CPD) Take (swish) 5 mL to 10 mL by mouth and swallow (allowing to coat the back of the throat) 5 to 6 times a day as needed for discomfort including before meals and before bedtime - multivitamin tablet Take 1 tablet by mouth once daily. - iv contrast (will be provided with radiology test) CT Chest W -Inject, intravenously, once for 1 dose.No IV access, insert saline lock prior to the beginning of sedation, infusion, injection of imaging exam. Discontinue saline lock post exam. If Pt. has a central line or IVAD, may access for administration according to line specific nursing protocol. Once exam is complete flush line and de-access according to line specific nursing protocol in the CT contrast administration guidelines link. - ibuprofen (MOTRIN) 200 mg tablet Take 400 mg by mouth every 6 hours as needed. 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 Discontinue saline lock post exam. If Pt. has a central line or IVAD, may access for administration according to line specific nursing protocol. Once exam is complete flush line and de-access according to line specific nursing protocol in the CT contrast administration guidelines link. - diphenhydrAMINE 12.5 mg/5 mL lidocaine visc 2% MAALOX 200-200-20 mg/5 mL oral liquid 1:1:1 (CPD) Take (swish) 5 mL to 10 mL by mouth and swallow (allowing to coat the back of the throat) 5 to 6 times a day as needed for discomfort including before meals and before bedtime - multivitamin tablet Take 1 tablet by mouth once daily. - iv contrast (will be provided with radiology test) CT Chest W -Inject, intravenously, once for 1 dose.No IV access, insert saline lock prior to the beginning of sedation, infusion, injection of imaging exam. Discontinue saline lock post exam. If Pt. has a central line or IVAD, may access for administration according to line specific nursing protocol. Once exam is complete flush line and de-access according to line specific nursing protocol in the CT contrast administration guidelines link. - ibuprofen (MOTRIN) 200 mg tablet Take 400 mg by mouth every 6 hours as needed. [facility] CNOVon 06-21-2024 CNOV Office Visit (RADTSA ) SCARLET MAYER ([id number]) 1975 M Date Time Provider Department 06/21/24 10:00 AM YOSEF TAYLOR During your visit today, we recorded the following information about you: Temperature Pulse Respiration Blood pressure 97.1 degrees 76/minute 16/minute 131/88 Weight 102.5 kg Yosef Taylor MD 07/09/2024 4:32 AM Addendum Radiation Oncology - Follow Up Note PATIENT NAME: Scarlet Mayer PATIENT DIAGNOSIS/PATIENT IDENTIFICATION: Mr. 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 He completed adjuvant radiotherapy to the right neck (60Gy/30) on 05/10/21. He developed recurrence in the LEFT neck and underwent left lingual tonsillectomy, left 1A-5 neck dissection (2/15 nodes, up to 2.6cm, no definite RAJIV) on 02/23/24. He met with the head and neck team at [facility] with recommendation to proceed to post-operative radiation therapy to the left neck for local control which he completed on 05/23/2024 (6000 cGy delivered in 30 fractions). Mr. Mayer returns to clinic today for routine follow-up approximately one month after the completion of his radiation treatments. In the interim, he notes improvement in his fatigue as he has been more active and has returned to work. His skin has healed with no breakdown but he does note some sensitivity in the area of the ear which also improves. He reports no pain or discomfort in the head and neck or any sores or ulcers in the mouth. He does have persistent dry mouth and has altered taste which is improving. He reports no voice changes and reports being able to swallow well without choking sensation. He notes he is able to eat most consistencies and reports improving appetite with good hydration and stable weight. At this point I will plan to see him back in approximately 6 to [address] of the neck and chest. He will follow with Dr. Hill as scheduled for continued clinical head and neck examination. The patient is aware to contact the clinic in the interim should any questions or concerns arise. Thank you for allowing us to participate in the care of this patient. Signed by: Ysoef Taylor MD This document has been created with the use of voice recognition technology. It may contain inaccuracies, misspellings, inaccurate syntax or inappropriate word context that are a result of the inadequacies/shortcomi ngs of said technology/software. 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 Discontinue saline lock post exam. If Pt. has a central line or IVAD, may access for administration according to line specific nursing protocol. Once exam is complete flush line and de-access according to line specific nursing protocol in the CT contrast administration guidelines link.Disp: 1 EachRfl: 0 CT NECK SOFT TISSUE W IVCON [[id number]] Order #: [id number] FUTURE [] iv contrast (will be provided with radiology test)Inject 1 Each intravenously one time only for [address] Neck W IVCON No IV access, insert saline lock prior to the sedation, infusion, injection for imaging exam. Discontinue saline lock post exam. If Pt. has a central line or IVAD, may access for administration according to line specific nursing protocol. Once exam is complete flush line and de-access according to line specific nursing protocol in the CT contrast administration guidelines link.Disp: 1 EachRfl: 0 Prescriptions as of 07/09/2024 - iv contrast (will be provided with radiology test) CT Chest W -Inject, intravenously, once for 1 dose.No IV access, insert saline lock prior to the beginning of sedation, infusion, injection of imaging exam. Discontinue saline lock post exam. If Pt. has a central line or IVAD, may access for administration according to line specific nursing protocol. Once exam is complete flush line and de-access according to line specific nursing protocol in the CT contrast administration guidelines link. - diphenhydrAMINE 12.5 mg/5 mL lidocaine visc 2% MAALOX 200-200-20 mg/5 mL oral (more content not included)... [facility] SCARLET MAYER ([id number]) 1975 Date Time Provider Department 06/04/24 YOSEF TAYLOR During your visit today, we recorded the following information about you: Denisse Ervin LPN 06/04/2024 11:39 AM Signed I called to get a post treatment update. Hiro is not home but I did speak Paige, spouse. She said last week was really rough but he is doing better this week. She said his skin reaction is improving. Left neck area is slightly red with dry desquamation. He is currently using OTC lotion to this area. She said he is maintaining his weight and possibly gained a couple pounds. He doesn't c/o dysphagia but does have a dry mouth. She is pushing Hiro to increase his oral fluid intake. She states he's very tired. He is taking Motrin 1-2 times daily. She said his ROM hasn't changed much since completing treatment. He still turns upper body instead of just his neck. They noticed swelling around his right clavicle and had Dr. Hill evaluate it last week during his scheduled follow up. She said Dr. Hill said it's most likely fluid but is not concerned. He has scheduled follow up with Dr. Hill in 6 weeks. He has scheduled follow up with Dr. Taylor 06/21/24 and lymphedema appointment 06/26/24. She feels his symptoms are improving. I encouraged her to have Hiro call with any concerns between now and his follow up. She is thankful for the care he received from our team. JUDY Hopkins Saju, MD 06/04/2024 3:12 PM Signed Thanks! Yosef Allergies As of Date: 06/04/2024 (No Known Allergies) Date Reviewed: 05/22/2024 Reviewed by: Lorna Azevedo MA - Fully Assessed Reason for Visit: Patient Update [1234] Cmt: Nurse Call post radiation Prescriptions as of 06/04/2024 - diphenhydrAMINE 12.5 mg/5 mL lidocaine visc 2% MAALOX 200-200-20 mg/5 mL oral liquid 1:1:1 (CPD) Take (swish) 5 mL to 10 mL by mouth and swallow (allowing to coat the back of the throat) 5 to 6 times a day as needed for discomfort including before meals and before bedtime - multivitamin tablet Take 1 tablet by mouth once daily. - iv contrast (will be provided with radiology test) CT Chest W -Inject, intravenously, once for 1 dose.No IV access, insert saline lock prior to the beginning of sedation, infusion, injection of imaging exam. Discontinue saline lock post exam. If Pt. has a central line or IVAD, may access for administration according to line specific nursing protocol. Once exam is complete flush line and de-access according to line specific nursing protocol in the CT contrast administration guidelines link. - ibuprofen (MOTRIN) 200 mg tablet Take 400 mg by mouth every 6 hours as needed. 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 He completed adjuvant radiotherapy to the right neck (60Gy/30) on 05/10/21. He developed recurrence in the LEFT neck and underwent left lingual tonsillectomy, left 1A-5 neck dissection (2/15 nodes, up to 2.6cm, no definite RAJIV) on 02/23/24. COURSE: post-operative AREA TREATED: Left neck CURRENT DOSE: 5800 cGy in 29 fx PLANNED DOSE: 6000 cGy in 30 fx SUBJECTIVE: Tolerating XRT well and does note some soreness in the area of the left ear as well as some skin irritation and breakdown. He also feels soreness in the roof of the mouth as well as inside the left cheek. He manages discomfort with 40 mg of Motrin 3 times daily. He also notes dry mouth and altered taste and does not like the soda rinse approximately 10 times as well as healios. He denies any pain with swallowing but does get some softer diet and denies any choking. He does endorse fatigue as he has taken a cough work with her appetite and hydration and stable weight. He is using Silvadene on the area of skin irritation/breakdown in addition to moisturizer. EXAM: KPS: 90 General Appearance: Alert and oriented. No acute distress. Radiation dermatitis: Mild IMAGING/LAB RESULTS: None Treatment chart checked: Yes Patient treatment site reviewed and verified:Yes Port films reviewed and current:Yes Medications started: None ASSESSMENT/PLAN: Clinically stable. Toxicity within expected parameters. Continue radiation treatment as planned. Yosef Taylor MD Referring Provider: YOSEF TAYLOR [[id number]] Allergies As of Date: 05/22/2024 (No Known Allergies) Date Reviewed: 05/22/2024 Reviewed by: Lorna Azevedo MA - Fully Assessed Reason for Visit: Malignant neoplasm of salivary gland ( [Other] Cmt: Treatment visit Primary Visit Diagnosis: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] Prescriptions as of 06/10/2024 - diphenhydrAMINE 12.5 mg/5 mL lidocaine visc 2% MAALOX 200-200-20 mg/5 mL oral liquid 1:1:1 (CPD) Take (swish) 5 mL to 10 mL by mouth and swallow (allowing to coat the back of the throat) 5 to 6 times a day as needed for discomfort including before meals and before bedtime - multivitamin tablet Take 1 tablet by mouth once daily. - iv contrast (will be provided with radiology test) CT Chest W -Inject, intravenously, once for 1 dose.No IV access, insert saline lock prior to the beginning of sedation, infusion, injection of imaging exam. Discontinue saline lock post exam. If Pt. has a central line or IVAD, may access for administration according to line specific nursing protocol. Once exam is complete flush line and de-access according to line specific nursing protocol in the CT contrast administration guidelines link. - ibuprofen (MOTRIN) 200 mg tablet Take 400 mg by mouth every 6 hours as needed. 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 He completed adjuvant radiotherapy to the right neck (60Gy/30) on 05/10/21. He developed recurrence in the LEFT neck and underwent left lingual tonsillectomy, left 1A-5 neck dissection (2/15 nodes, up to 2.6cm, no definite RAJIV) on 02/23/24. COURSE: post-operative AREA TREATED: Left neck CURRENT DOSE: 4800 cGy in 24 fx PLANNED DOSE: 6000 cGy in 30 fx SUBJECTIVE: Well and notes some discomfort in the area of skin erythema and uses a moisturizer daily. He has slight area of desquamation in the area of the incision. He reports no discomfort or sores ulcers in the mouth but does feel some sensitivity in the tongue. He notes lack of taste and dry mouth and is doing the baking soda rinse as well as healios. He notes intact swallowing and is able to eat most consistencies and denies any choking sensation. He does note fatigue as he continues to work with her appetite and hydration and stable weight. PHYSICAL EXAM: KPS: 90 General Appearance: Alert and oriented. No acute distress. Radiation dermatitis: Mild Mucositis: No IMAGING/LAB RESULTS: None TOXICITY ASSESSMENT (CTCv4): Dysphagia:grade 1 - Symptomatic, able to eat regular diet Mucositis: grade 0 - No symptoms Radiation dermatitis: grade 1 - Faint erythema or dry desquamation Trismus: grade 0 - No symptoms Voice Changes:grade 0 - No symptoms Xerostomia: grade 1 - Symptomatic (dry or thick saliva) without significant dietary alteration; unstimulated saliva flow >2ml/min Fatigue: grade 1 - Fatigue relieved by rest Pain: grade 1 - Mild pain Taste: grade 1 - Altered taste but no change in diet Treatment chart checked: Yes Patient treatment site reviewed and verified:Yes Port films reviewed and current:Yes Medications started: None ASSESSMENT:Clinically stable. Toxicity within expected parameters. Continue radiation treatment as planned. Yosef Taylor MD Referring Provider: YOSEF TAYLOR [[id number]] Allergies As of Date: 05/15/2024 (No Known Allergies) Date Reviewed: 05/15/2024 Reviewed by: Lorna Azevedo MA - Fully Assessed Reason for Visit: Malignant neoplasm of salivary gland [Other] Cmt: Treatment visit Primary Visit Diagnosis: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] Prescriptions as of 06/04/2024 - diphenhydrAMINE 12.5 mg/5 mL lidocaine visc 2% MAALOX 200-200-20 mg/5 mL oral liquid 1:1:1 (CPD) Take (swish) 5 mL to 10 mL by mouth and swallow (allowing to coat the back of the throat) 5 to 6 times a day as needed for discomfort including before meals and before bedtime - multivitamin tablet Take 1 tablet by mouth once daily. - iv contrast (will be provided with radiology test) CT Chest W -Inject, intravenously, once for 1 dose.No IV access, insert saline lock prior to the beginning of sedation, infusion, injection of imaging exam. Discontinue saline lock post exam. If Pt. has a central line or IVAD, may access for administration according to line specific nursing protocol. Once exam is complete flush line and de-access according to line specific nursing protocol in the CT contrast administration guidelines link. - ibuprofen (MOTRIN) 200 mg tablet Take 400 mg by mouth every 6 hours as needed. 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 He completed adjuvant radiotherapy to the right neck (60Gy/30) on 05/10/21. He developed recurrence in the LEFT neck and underwent left lingual tonsillectomy, left 1A-5 neck dissection (2/15 nodes, up to 2.6cm, no definite RAJIV) on 02/23/24. COURSE: post-operative AREA TREATED: Left neck CURRENT DOSE: 3800 cGy in 19 fx PLANNED DOSE: 6000 cGy in 30 fx SUBJECTIVE: Tolerating XRT well and denies any pain or discomfort in the head and neck including any sores or ulcers in the mouth. He does note some tongue sensitivity and continues to use the baking soda rinse as well as Healios. He does note dry mouth as well as altered taste. He denies any throat pain or difficulty swallowing and is able to eat all consistencies. He does note skin redness without breakdown of the treatment area and uses a moisturizer daily. He does endorse fatigue as he continues to work with stable appetite and hydration and weight. PHYSICAL EXAM: KPS: 90 General Appearance: Alert and oriented. No acute distress. Radiation dermatitis: Mild Mucositis: No Oral cavity and oropharynx: Oral cavity and oropharynx: lips and gums normal, palate elevates normally, tongue mobile and without palpable lesions; dry with thickened saliva. Neck: Normal ROM. No palpable cervical or supraclavicular adenopathy. IMAGING/LAB RESULTS: None TOXICITY ASSESSMENT (CTCv4): Dysphagia:grade 1 - Symptomatic, able to eat regular diet Mucositis: grade 1 - Asymptomatic or mild symtoms; intervention not indicated Radiation dermatitis: grade 1 - Faint erythema or dry desquamation Trismus: grade 0 - No symptoms Voice Changes:grade 0 - No symptoms Xerostomia: grade 1 Fatigue: grade 1 - Fatigue relieved by rest Pain: grade 0 - No symptoms Taste: grade 1 - Altered taste but no change in diet Treatment chart checked: Yes Patient treatment site reviewed and verified:Yes Port films reviewed and current:Yes Medications started: None ASSESSMENT:Clinically stable. Toxicity within expected parameters. Continue radiation treatment as planned. 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 - iv contrast (will be provided with radiology test) CT Chest W -Inject, intravenously, once for 1 dose.No IV access, insert saline lock prior to the beginning of sedation, infusion, injection of imaging exam. Discontinue saline lock post exam. If Pt. has a central line or IVAD, may access for administration according to line specific nursing protocol. Once exam is complete flush line and de-access according to line specific nursing protocol in the CT contrast administration guidelines link. - ibuprofen (MOTRIN) 200 mg tablet Take 400 mg by mouth every 6 hours as needed. 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 He completed adjuvant radiotherapy to the right neck (60Gy/30) on 05/10/21. He developed recurrence in the LEFT neck and underwent left lingual tonsillectomy, left 1A-5 neck dissection (2/15 nodes, up to 2.6cm, no definite RAJIV) on 02/23/24. COURSE: post-operative AREA TREATED: Left neck CURRENT DOSE: 2800 cGy in 14 fx PLANNED DOSE: 6000 cGy in 30 fx SUBJECTIVE: Already XRT well and denies any pain/discomfort in the head and neck or any sores/ulcers. He does note some dry mouth as well as altered taste and has been doing the baking soda rinse several times a day which has been helping with his tongue/gum sensitivity. He reports no pain/difficulty with swallowing or any choking sensation and is able to eat most consistencies. He does have some skin redness without breakdown is using a moisturizer daily and is also using heliosis twice a day. He does endorse fatigue as he continues to work with stable appetite and hydration and weight. Last 4 Encounter Wt Readings: Date: Wt: 05/01/2024 103.4 kg (227 lb 15.3 oz) 04/24/2024 104.7 kg (230 lb 13.2 oz) 04/11/2024 105.8 kg (233 lb 4 oz) 03/25/2024 105.7 kg (233 lb 0.4 oz) PHYSICAL EXAM: KPS: 90 General Appearance: Alert and oriented. No acute distress. Radiation dermatitis: Mild Mucositis: No Oral cavity and oropharynx: lips and gums normal, palate elevates normally, tongue mobile and without palpable lesions; dry with thickened saliva. Neck: Normal ROM. No palpable cervical or supraclavicular adenopathy. IMAGING/LAB RESULTS: None TOXICITY ASSESSMENT (CTCv4): Dysphagia:grade 1 - Symptomatic, able to eat regular diet Mucositis: grade 1 - Asymptomatic or mild symtoms; intervention not indicated Radiation dermatitis: grade 1 - Faint erythema or dry desquamation Trismus: grade 0 - No symptoms Voice Changes:grade 0 - No symptoms Xerostomia: grade 0 - No symptoms Fatigue: grade 1 - Fatigue relieved by rest Pain: grade 0 - No symptoms Taste: grade 1 - Altered taste but no change in diet Treatment chart checked: Yes Patient treatment site reviewed and verified:Yes Port films reviewed and current:Yes Medications started: None ASSESSMENT:Clinically stable. Toxicity within expected parameters. Continue radiation treatment as planned. 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 - iv contrast (will be provided with radiology test) CT Chest W -Inject, intravenously, once for 1 dose.No IV access, insert saline lock prior to the beginning of sedation, infusion, injection of imaging exam. Discontinue saline lock post exam. If Pt. has a central line or IVAD, may access for administration according to line specific nursing protocol. Once exam is complete flush line and de-access according to line specific nursing protocol in the CT contrast administration guidelines link. - ibuprofen (MOTRIN) 200 mg tablet Take 400 mg by mouth every 6 hours as needed. 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 - iv contrast (will be provided with radiology test) CT Chest W -Inject, intravenously, once for 1 dose.No IV access, insert saline lock prior to the beginning of sedation, infusion, injection of imaging exam. Discontinue saline lock post exam. If Pt. has a central line or IVAD, may access for administration according to line specific nursing protocol. Once exam is complete flush line and de-access according to line specific nursing protocol in the CT contrast administration guidelines link. - ibuprofen (MOTRIN) 200 mg tablet Take 400 mg by mouth every 6 hours as needed. 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 - iv contrast (will be provided with radiology test) CT Chest W -Inject, intravenously, once for 1 dose.No IV access, insert saline lock prior to the beginning of sedation, infusion, injection of imaging exam. Discontinue saline lock post exam. If Pt. has a central line or IVAD, may access for administration according to line specific nursing protocol. Once exam is complete flush line and de-access according to line specific nursing protocol in the CT contrast administration guidelines link. - ibuprofen (MOTRIN) 200 mg tablet Take 400 mg by mouth every 6 hours as needed. [facility] CNOVon 04-24-2024 CNOV Office Visit (RADTSA ) SCARLET MAYER ([id number]) 1975 M Date Time Provider Department 04/24/24 3:45 PM YOSEF TAYLOR During your visit today, we recorded the following information about you: Temperature Pulse Respiration Blood pressure 97.4 degrees 68/minute 18/minute 166/101 Weight 104.7 kg Yosef Taylor MD 05/06/2024 11:06 PM Signed Radiation Oncology - On Treatment Review (OTR) Note PATIENT NAME: Scarlet Mayer PATIENT DIAGNOSIS: Mr. 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 He completed adjuvant radiotherapy to the right neck (60Gy/30) on 05/10/21. He developed recurrence in the LEFT neck and underwent left lingual tonsillectomy, left 1A-5 neck dissection (2/15 nodes, up to 2.6cm, no definite RAJIV) on 02/23/24. COURSE: post-operative AREA TREATED: Left neck CURRENT DOSE: 1800 cGy in 9 fx PLANNED DOSE: 6000 cGy in 30 fx SUBJECTIVE: Tolerating XRT well and denies any pain/discomfort or any sores or ulcers in his mouth but does note some sensitivity in his tongue. He does note taste changes with thicker saliva but is able to swallow well and eat most consistencies. He denies any choking sensation or change in his voice. He does endorse fatigue as he continues to work with stable appetite and hydration and weight. Last 5 Encounter Wt Readings: Date: Wt: 05/01/2024 103.4 kg (227 lb 15.3 oz) 04/24/2024 104.7 kg (230 lb 13.2 oz) 04/11/2024 105.8 kg (233 lb 4 oz) 03/25/2024 105.7 kg (233 lb 0.4 oz) 03/18/2024 106 kg (233 lb 11 oz) PHYSICAL EXAM: KPS: 90 General Appearance: Alert and oriented. No acute distress. Radiation dermatitis: No Mucositis: No Oral cavity and oropharynx: lips and gums normal, oral and pharyngeal mucosa moist, tongue mobile and without palpable lesions Neck: Normal ROM. No palpable cervical or supraclavicular adenopathy. IMAGING/LAB RESULTS: None TOXICITY ASSESSMENT (CTCv4): Dysphagia:grade 1 - Symptomatic, able to eat regular diet Mucositis: grade 0 - No symptoms Radiation dermatitis: grade 0 - No symptoms Trismus: grade 0 - No symptoms Voice Changes:grade 0 - No symptoms Xerostomia: grade 1 - Symptomatic (dry or thick saliva) without significant dietary alteration; unstimulated saliva flow >2ml/min Fatigue: grade 1 - Fatigue relieved by rest Pain: grade 0 - No symptoms Treatment chart checked: Yes Patient treatment site reviewed and verified:Yes Port films reviewed and current:Yes Medications started: Yes, BMX ASSESSMENT:Clinically stable. Toxicity within expected parameters. Continue radiation treatment as planned. 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 - iv contrast (will be provided with radiology test) CT Chest W -Inject, intravenously, once for 1 dose.No IV access, insert saline lock prior to the beginning of sedation, infusion, injection of imaging exam. Discontinue saline lock post exam. If Pt. has a central line or IVAD, may access for administration according to line specific nursing protocol. Once exam is complete flush line and de-access according to line specific nursing protocol in the CT contrast administration guidelines link. - ibuprofen (MOTRIN) 200 mg tablet Take 400 mg by mouth every 6 hours as needed. Problem List As Of Date 04/24/2024 Noted Resolved Malignant neoplasm of salivary gland (HCC) [C08*03/10/2021 Lymphedema [I89.0] 03/28/2024 Prescriptions ordered this encounter Disp Refills Start End DIPHENHYDRAMINE-MAALOX -LIDOCAINE ORA* 360 * 1 05/06/2024 Sig: Take 5-10 mL by mouth and swallow (allowing to coat the back of the throat) 5-6 times a day as needed for discomfort including before meals and before bedtime Encounter Status:Closed by YOSEF TAYLOR on 05/06/24 [facility] CNCOon 04-16-2024 CNCO Letter Text [facility] CNTHERAPYon 04-16-2024 CNTHERAPY OT/PT/Speech Visit (MILLICENTCOF) SCARLET MAYER ([id number]) 1975 M Date Time Provider Department 04/16/24 10:00 AM KOMAL MENDOZA Date Time Provider Department Center 04/16/2024 10:00 AM [id number] MENDOZA [facility] Reason for Visit: Occupational Therapy [504] Primary Visit Diagnosis:Lymphedema [I89.0] Other Visit Diagnosis: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 - iv contrast (will be provided with radiology test) CT Chest W -Inject, intravenously, once for 1 dose.No IV access, insert saline lock prior to the beginning of sedation, infusion, injection of imaging exam. Discontinue saline lock post exam. If Pt. has a central line or IVAD, may access for administration according to line specific nursing protocol. Once exam is complete flush line and de-access according to line specific nursing protocol in the CT contrast administration guidelines link. - ibuprofen (MOTRIN) 200 mg tablet Take 400 mg by mouth every 6 hours as needed. [facility] CNOVon 04-11-2024 CNOV Office Visit (RADTSA ) SCARLET MAYER ([id number]) 1975 M Date Time Provider Department 04/11/24 3:30 PM YOSEF TAYLOR RADTSA During your visit today, we recorded the following information about you: Respiration Weight 18/minute 105.8 kg Yosef Taylor MD 04/23/2024 5:18 AM Addendum Radiation Oncology - On Treatment Review (OTR) Note PATIENT NAME: Scarlet Mayer PATIENT DIAGNOSIS: Mr. 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 He completed adjuvant radiotherapy to the right neck (60Gy/30) on 05/10/21. He developed recurrence in the LEFT neck and underwent left lingual tonsillectomy, left 1A-5 neck dissection (2/15 nodes, up to 2.6cm, no definite RAJIV) on 02/23/24. COURSE: post-operative AREA TREATED: Left neck CURRENT DOSE: 200 cGy in 1 fx PLANNED DOSE: 6000 cGy in 30 fx SUBJECTIVE: Tolerated first fraction of XRT well and reports no significant changes from the time of simulation. EXAM: KPS: 90 General Appearance: Alert and oriented. No acute distress. Radiation dermatitis: No IMAGING/LAB RESULTS: None Treatment chart checked: Yes Patient treatment site reviewed and verified:Yes Port films reviewed and current:Yes Medications started: None ASSESSMENT/PLAN: Clinically stable. No signs of toxicity. Continue radiation treatment as planned. We reviewed general precautions/instructio ns during radiation treatment to the head and neck as well as the potential acute toxicities during treatment and their time course. Discussed the importance of a well-balanced diet, hydration, and exercise/activity as tolerated through the course of treatment. 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 - iv contrast (will be provided with radiology test) CT Chest W -Inject, intravenously, once for 1 dose.No IV access, insert saline lock prior to the beginning of sedation, infusion, injection of imaging exam. Discontinue saline lock post exam. If Pt. has a central line or IVAD, may access for administration according to line specific nursing protocol. Once exam is complete flush line and de-access according to line specific nursing protocol in the CT contrast administration guidelines link. - ibuprofen (MOTRIN) 200 mg tablet Take 400 mg by mouth every 6 hours as needed. 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 - iv contrast (will be provided with radiology test) CT Chest W -Inject, intravenously, once for 1 dose.No IV access, insert saline lock prior to the beginning of sedation, infusion, injection of imaging exam. Discontinue saline lock post exam. If Pt. has a central line or IVAD, may access for administration according to line specific nursing protocol. Once exam is complete flush line and de-access according to line specific nursing protocol in the CT contrast administration guidelines link. - ibuprofen (MOTRIN) 200 mg tablet Take 400 mg by mouth every 6 hours as needed. [facility] CNOVSPon 03-25-2024 [facility]LET [facility] ([id number]) 1975 M Date Time Provider Department 03/25/24 3:00 PM JOSE ORTIZ [facility] During your visit today, we recorded the following information about you: Temperature Pulse Respiration Blood pressure 97.7 degrees 74/minute 18/minute 140/87 Weight Height 105.7 kg 1.78 m Holli Junior RN 03/25/2024 2:59 PM Signed Additional intake questions: Has the patient had fever, nausea, vomiting, diarrhea, constipation, fatigue for > 1 week? No Does the patient have a decreased appetite? No Does patient have any new or increased numbness or tingling of extremities? No Is patient interested in fertility information? No Does patient need any prescription refills? No Does patient have an advanced directive in place? No, Patient refused referral to Social Work or Resource Center Electronically Signed By: JUDY Winslow Michael, MD 04/08/2024 6:19 AM Signed [facility] NEW PATIENT VISIT Department of Hematology and Medical Oncology PATIENT NAME: Scarlet Mayer CLINIC NO: [id number] DATE OF SERVICE: 03/25/2024 PCP: Tristian Pacheco MD REFERRING PROVIDER: Yosef Taylor MD DIAGNOSIS: Mucoepidermoid Carcinoma on Unknown Primary STAGE: Cancer Staging (Hyperlink to Activity) No matching staging information was found for the patient. REASON FOR VISIT: To discuss the role of systemic therapy in the management of his resected mucoepidermoid carcinoma ONCOLOGY HISTORY: 01/01 CT Neck with contrast performed on 01/04/21 revealed the following: Impression: There are 2 well-defined masses in the region of concern along the right side of the neck which most likely represent enlarged level 2A lymph nodes measuring up to 3.5 cm in greatest diameter. The lymph nodes may be reactive or may be involved with tumor or infiltrative process such as lymphoma. FDG PET Scan performed on 01/07/21 revealed the following: IMPRESSION: There is redemonstration of pathologically enlarged right level 2 and right lower 3 lymph nodes. There is mild increased FDG activity with a maximum SUV of 3.2 within the right level 3 posteriorly. There is asymmetric radiotracer accumulation within the right shoulder with focal cord posteriorly with a maximum SUV of 7.5. There is no focal masslike abnormality. Direct visualization is recommended. No additional abnormal FDG foci are noted. 02/01 Transoral partial pharyngectomy performed on 01/30/24 confirmed the presence of the following: A. Right pharynx, transoral partial pharyngectomy: - No tumor present. B. Right lingual tonsil, excision (B): - No tumor present. C. Lymph nodes, right neck level 2B, dissection: - Fifteen lymph nodes, negative for carcinoma (0/15). D. Lymph nodes, right neck level 1B and 2A, dissection: - Mucoepidermoid carcinoma (up to 3.7 cm) in two of four lymph nodes (2/4) (see comment). - Negative for extranodal extension. E. Lymph nodes, right neck levels 3, 4, and 5, dissection: - Mucoepidermoid carcinoma (up to 2.0 cm) in three of thirty-four lymph nodes (3/34) (see comment). - Negative for extranodal extension. F. Left tonsil, tonsillectomy: - No tumor present. Comments: A p16 immunohistochemical stain shows strong patchy positive staining but RNA in situ hybridization studies are negative for high-risk Human Papillomavirus. 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 No evidence for metastatic disease to the cervical spine. Multiple abnormal left level 2a lymph nodes as discussed suspicious for recurrent/residual neoplastic disease. 02/04 FDG PET Scan performed on 01/15/24 revealed the Following: IMPRESSION: There is redemonstration of pathologically enlarged right level 2 and right lower 3 lymph nodes. There is mild increased FDG activity with a maximum SUV of 3.2 within the right level 3 posteriorly. There is asymmetric radiotracer accumulation within the right shoulder with focal cord posteriorly with a maximum SUV of 7.5. There is no focal masslike abnormality. Direct visualization is recommended. No additional abnormal FDG foci are noted. 03/06 Left Tonsillectomy with left neck dissection performed on 02/23/24 confirmed the presence of the following: FINAL DIAGNOSIS Outside slides labeled [id number] (collected 02/23/2024) A. Left lingual tonsil, excision: -Benign tonsillar tissue. B. Left prefacial lymph node, biopsy: -Fibroadipose. C. Lymph nodes, left neck level 1A and 1B (more content not included)... [facility] CNOVon 03-20-2024 CNOV Office Visit (RADTSA ) SCARLET MAYER ([id number]) 1975 M Date Time Provider Department 03/20/24 3:00 PM YOSEF TAYLORTSMarcellus During your visit today, we recorded the following information about you: Yosef Taylor MD 04/02/2024 6:41 AM Addendum Radiation Oncology - Follow Up Note PATIENT NAME: Scarlet Mayer PATIENT DIAGNOSIS/PATIENT IDENTIFICATION: per note from Dr. 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 He completed adjuvant radiotherapy to the right neck (60Gy/30) on 05/10/21. He developed recurrence in the LEFT neck and underwent left lingual tonsillectomy, left 1A-5 neck dissection (2/15 nodes, up to 2.6cm, no definite RAJIV) on 02/23/24. Mr. 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 He is recovering without complication. 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 I reviewed his serial imaging and appreciate no clear primary site of disease. He has undergone bilateral tonsillectomies, BOT biopsies, nasoendoscopies, and multiple MRI/PET. I recommend adjuvant radiotherapy to the left neck (1B-5) to 60 Gy in 30 fractions given good regional control following his prior course. He is understandably motivated to avoid a third recurrence, and therefore elective irradiation of the left parotid could be considered, but I feel there is small additional benefit given his pattern of recurrence. He will discuss this with Dr. Taylor in the context of his preferences. He will meet with Dr. Ortiz to discuss the role of adjuvant systemic therapy for MEC.I will also refer him to lymphedema therapy.' He returns today to the radiation medicine clinic here in [place] to continue discussion regarding postoperative radiation therapy to the left head and neck and make local arrangements for treatment delivery. INTERVAL HISTORY: As above, Mr. Mayer underwent left neck dissection on 02/23/[address] Hill and reports recovering well and denies any postoperative complications with wound healing or infection. He does note some persistent discomfort along the jawline which continues to improve. He reports improving swallowing function and was able to eat hamburger slowly yesterday without any choking. ALLERGIES ALLERGIES No Known Allergies MEDICATIONS: Current Outpatient Medications: multivitamin tablet ibuprofen (MOTRIN) 200 mg tablet iv contrast (will be provided with radiology test) PHYSICAL EXAM: GENERAL: middle-aged gentleman sitting in chair in no acute distress. KPS: 90 HEENT: NC/AT, anicteric sclera HEART: S1S2 LUNGS: non-labored breathing ABDOMEN: soft MUSCULOSKELETAL: no peripheral edema, moves all extremities. NEURO: no focal deficit; AANDO X3. PATHOLOGIC DATA: 02/23/2024 RADIOLOGIC DATA: PET/CT (01/15/2024) IMPRESSION: Findings suggest a primary malignancy of the left lingual tonsils with no metastatic disease along the left level 2 and level 3 as above. No evidence of distant lymphadenopathy or metastatic disease, as above. Head and neck: Postsurgical changes are noted consistent with previous resection and lymph node dissection at the right lingual tonsils and within the right side of the neck. No residual right-sided lymphadenopathy is appreciated. There is an enlarged lymph node in the left level 2A measuring 1.5 x 2.4 cm in greatest axial dimension. There is increased FDG activity within maximum SUV of approximately 3.2. Additional prominent but smaller and less FDG avid lymph nodes are noted inferior to this. This is accompanied by soft tissue prominence in the left lingual tonsils partially effacing the left piriform sinus. There is increased FDG activity in this location with a maximum SUV of 3.2. MRI Neck (01/05/2024) IMPRESSION: Degenerative changes of the cervical spine as discussed. No evidence for metastatic disease to the cervical spine. Multiple abnormal left level 2a lymph nodes as discussed suspicious for recurrent/residual neoplastic disease. There are multiple abnormal enhancing nodules within the left neck at level 2a, with the largest measuring around 17 mm short axis. No distinct other abnormal cervical lymph nodes by size criteria. IMPRESSION: Mr. Mayer is a 48 year old male who underwent right p (more content not included)... [facility] CNOVon 03-18-2024 CNOV Office Visit (RACOMN ) LEYLASCARLET ([id number]) 1975 M Date Time Provider Department 03/18/24 9:00 AM MATT MONREAL RACOMN During your visit today, we recorded the following information about you: Temperature Pulse Respiration Blood pressure 97.9 degrees 66/minute 18/minute 144/84 Weight 106 kg Holli Junior RN 03/18/2024 10:11 AM Signed Additional intake questions: Has the patient had fever, nausea, vomiting, diarrhea, constipation, fatigue for > 1 week? No Does the patient have a decreased appetite? No Does patient have any new or increased numbness or tingling of extremities? No Is patient interested in fertility information? No Does patient need any prescription refills? No Does patient have an advanced directive in place? 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 He completed adjuvant radiotherapy to the right neck (60Gy/30) on 05/10/21. He developed recurrence in the LEFT neck and underwent left lingual tonsillectomy, left 1A-5 neck dissection (2/15 nodes, up to 2.6cm, no definite RAJIV) on 02/23/24. HPI: 48 year old male who presents with the above diagnosis, for an opinion regarding the role of radiation therapy in the management of the patient's disease. Final recommendations will be communicated back to the requesting physician by way of the shared medical record, or letter to requesting physician via mail. 01/04/21: Presented with right neck mass. CTA neck demonstrated two nodes in right level 2A measuring up to 3.5cm. 01/07/21: PET showed pathologically enlarged right level 2 and right lower 3 lymph nodes with mild increased FDG activity with a maximum SUV of 3.2 within the right level 3 posteriorly. There was asymmetric radiotracer accumulation within the right shoulder with maximum SUV of 7.5. 01/29/21: Right partial pharyngectomy, right lingual tonsillectomy, left palatine tonsillectomy, and right neck dissection (1B-5) for pT0N2b [5/38 nodes, up to 3.7cm, no RAJIV, intermediate-grade] cM0 mucoepidermoid carcinoma of unknown primary. No primary site identified. 05/10/21: PORT to right neck 1B-5, 60 Gy in 30 fractions under care of Dr. Taylor. 07/2021-04/2022: No evidence of disease recurrence. Stable 2mm CHIO nodule. 01/05/24: MRI neck showed degenerative changes of the spine, with incidental enlarged left 2A nodes. MRI neck showed no primary site. FNA of left neck mass showed recurrent MEC. 01/15/24: PET showed suggested primary malignancy of the left lingual tonsils. No evidence of distant lymphadenopathy or metastatic disease. 02/23/24: Left lingual tonsillectomy, left prefacial lymph node biopsy, left 1A-5 neck dissection. This demonstrated 2/15 nodes involved with metastatic MEC measuring up to 2.6cm. Today, Mr. Mayer presents with his . He is recovering well from surgery. Taking motrin for pain and eating soft solids. Reports some trismus, jaw tightness, neck tightness, and neck edema. No facial numbness, weakness, bleeding, dysphagia, or aspiration. REVIEW OF SYSTEMS: Pertinent positives and negatives listed above in HPI. A complete review of systems was otherwise negative. ALLERGIES: Allergies: No Known Allergies MEDICATIONS: Current Outpatient Medications: multivitamin tablet iv contrast (will be provided with radiology test) ibuprofen (MOTRIN) 200 mg tablet PRIOR RADIOTHERAPY: yes, per hpi Implanted or external electronic device: none Collagen vascular disease or inflammatory bowel disease: none PAST MEDICAL HISTORY: PAST MEDICAL HISTORY No date: Head and neck cancer (HCC) 03/10/2021: Malignant neoplasm of salivary gland (HCC) PAST SURGICAL HISTORY: PAST SURGICAL HISTORY 01/29/2021: CO2 LASER Comment: Transoral-oral cavity cancer 01/29/2021: EXC/DSTRJ LINGUAL TONSIL ANY METHOD SPX; Right Comment: Pharyngectomy, Rt modified Radical neck dissection, Lt tonsil 2012: REMOVAL GALLBLADDER FAMILY HISTORY: FAMILY HISTORY Problem Relation Age of Onset No Known Problems Mother No Known Problems Father No Known Problems Sister No Known Problems Brother Prostate Cancer Paternal Grandfather SOCIAL HISTORY: Scarlet Mayer is and lives in [place] with his . Smoked 0.25ppd for 16 years and quit in 2011. PHYSICAL EXAM: (more content not included)... [facility] OUTSIDE CYTOLOGY SLIDE CIERA Reddy 03-07-2024 CASE REPORT [facility] Comment on above: Order Comment: Speci men Type: FORMALIN-FIXED PARAFFIN-EMBEDDED TISSUE SPECIMENOrdering Facility: AP Outside Review Address: , , Result Comment: [facility] Cytology Report Case: [id number] Authorizing Provider: Yosef Taylor MD Collected: 03/07/2024 03:17 PM Ordering Location: [facility] Received: 03/07/2024 03:14 PM [facility] Pathologist: Alicia Montiel MD Specimen: Slide(s), MASS, LEFT NECK, FINE NEEDLE ASPIRATION, 20 OUTSIDE SLIDES, ([id number]), 01/10/2024 Performed By: #### L [id number] ####[facility] LABCLIA [id number] [address] CLINICAL HISTORY History of mucoepidermoid carcinoma. [facility] Comment on above: Order Comment: Speci men Type: FORMALIN-FIXED PARAFFIN-EMBEDDED TISSUE SPECIMENOrdering Facility: AP Outside Review Address: , , Performed By: #### L [id number] ####[facility] LABIA [id number] [address] DIAGNOSIS COMMENT Dr. Hattie driscoll reviewed select slides of this case and concurs with the interpretation above. [facility] Comment on above: Order Comment: Speci men Type: FORMALIN-FIXED PARAFFIN-EMBEDDED TISSUE SPECIMENOrdering Facility: AP Outside Review Address: , , Performed By: #### L [id number] ####[facility] LABIA [id number] [address] FINAL DIAGNOSIS [facility] Comment on above: Order Comment: Speci men Type: FORMALIN-FIXED PARAFFIN-EMBEDDED TISSUE SPECIMENOrdering Facility: AP Outside Review Address: , , Result Comment: A - Slide(s), Blocks or Slides - MASS, LEFT NECK, FINE NEEDLE ASPIRATION, 20 OUTSIDE SLIDES, ([id number]), 01/10/2024 Positive for malignant cells Morphologically consistent with patient's known recurrent mucoepidermoid carcinoma; see comment Performed By: #### L [id number] ####[facility] LABCLIA [id number] [address] OF [place] FINAL PERFORMING LAB [facility] Comment on above: Order Comment: Speci men Type: FORMALIN-FIXED PARAFFIN-EMBEDDED TISSUE SPECIMENOrdering Facility: AP Outside Review Address: , , Result Comment: Tech nical component, service station operator screening performed at [facility], [address] [facility] [address] CLIA# [id number] Diagnostic interpretation performed at [facility], [address] [place] [address] CLIA# [id number] Buying Intern: James Garza M.D. Performed By: #### L [id number] ####[facility] LABCLIA [id number] [address] OF [place] OUTSIDE SURG PATH SLIDE REVI EWon 03-07-2024 CASE REPORT [facility] Comment on above: Order Comment: Speci men Type: FORMALIN-FIXED PARAFFIN-EMBEDDED TISSUE SPECIMENOrdering Facility: AP Outside Review Address: , , Result Comment: Surg ical Pathology Report Case: [id number] Authorizing Provider: Yosef Taylor MD Collected: 03/07/2024 03:27 PM Ordering Location: [facility] Received: 03/07/2024 03:26 PM [facility] Pathologist: Rich Grubbs MD, PhD Specimen: Slide(s), 38 SLIDES [id number] Performed By: #### L [id number] ####[facility] LABCLIA [id number] [address] [place] DIAGNOSIS COMMENT Although there is focal irregularity at the ilya periphery, definitive extranodal extension is not identified in my opinion. [facility] Comment on above: Order Comment: Speci men Type: FORMALIN-FIXED PARAFFIN-EMBEDDED TISSUE SPECIMENOrdering Facility: AP Outside Review Address: , , Performed By: #### L [id number] ####[facility] LABCLIA [id number] [id number] FINAL DIAGNOSIS [facility] Comment on above: Order Comment: Speci men Type: FORMALIN-FIXED PARAFFIN-EMBEDDED TISSUE SPECIMENOrdering Facility: AP Outside Review Address: , , Result Comment: Outs edgardo slides labeled [id number] (collected 02/23/2024) A. Left lingual tonsil, excision: -Benign tonsillar tissue. B. Left prefacial lymph node, biopsy: -Fibroadipose. C. Lymph nodes, left neck level 1A and 1B, dissection: -Three lymph nodes negative for carcinoma (0/3). -Unremarkable submandibular gland. D. Lymph nodes, left neck level 2A and 2B, dissection: -Metastatic mucoepidermoid carcinoma (2.6 cm) in one of seven lymph nodes (1/7), see comment. E. Lymph nodes, left neck level 3, 4 and 5, dissection: -Metastatic mucoepidermoid carcinoma (2.4 cm) in one of eight lymph nodes (1/8), see comment. Performed By: #### L [id number] ####[facility] LABCLIA [id number] [address] FINAL PERFORMING LAB [facility] Comment on above: Order Comment: Speci men Type: FORMALIN-FIXED PARAFFIN-EMBEDDED TISSUE SPECIMENOrdering Facility: Outside Review Address: , , Result Comment: Diag nostic interpretation performed at [facility], [address] [place] [address] CLIA# [id number] Buying Intern: James Garza M.D. Performed By: #### L [id number] ####[facility] LABCLIA [id number] [address] OF [facility] Su 03-04-2024 CATHYN Telephone (RADboomtrainA) GARLANDSCARLET ZHONG ([id number]) 1975 M Date Time Provider Department 03/04/24 YOSEF TAYLOR During your visit today, we recorded the following information about you: Sahra Infante RN 03/04/2024 3:[address] Taylor spoke to Dr Hill regarding pt. Pt has new HANDN Cancer on the opposite side of where we treated. He would like us to get all records and imaging including images. He would also like all notes and pathology report. He would like pathology sent for an over read thru [facility]. Once he has had a chance to review everything, he will let us know what appts pt needs and what to coordinate. Dr Taylor- Please sign order for pathology overread. Do you want Med onc consult arranged now due to it taking a few weeks for appt? If yes- sign that order too please. Prior pt of Dr Sushil Dominguez- Please request all imaging from [facility]. I did request the PET from [facility] to be pushed over. We will need to ask film library to process these ABEL. Records in HERNANDEZ folder to scan when you're available. I believe I printed everything. Tiff- Please arrange pathology overread once order is signed. Records including Path report are in for Angelica to scan. Done at [facility]. Also please keep an eye on if he orders the med onc consult so we can get this process started as well for Dr kincaid. He is known to him, but last appt was 2020. Thank you all! Sahra Infante, Felicia Taylor 03/05/2024 1:50 PM Signed Records scanned. PET/CT images are uploaded, just waiting for the images from [facility] to come over. Nilsa Dunn 03/05/2024 2:11 PM Addendum Path sent for 2nd opinion Tiff c'cing you in this incase if gets to that point thanks. Sahra Infante, JUDY 03/05/2024 3:[address] Taylor, he would like pt to be seen by rad onc and med onc at [facility] for their opinion/recommendation . Please make referral and pt should be seen same day. Rad onc requested- Dr Matt Monreal, Med Onc- someone specializing in HANDN treatment. Please contact pt with appts. Dr Taylor is happy to speak to him if he has questions about this. HERNANDEZ- please sign these new orders. JUDY Camargo Tiffany 03/06/2024 7:09 AM Signed Email sent to cancer answer line. Emailed cc'd to you clif Nilsa Dunn 03/12/2024 7:10 AM Signed Patient is scheduled. 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 - iv contrast (will be provided with radiology test) CT Chest W -Inject, intravenously, once for 1 dose.No IV access, insert saline lock prior to the beginning of sedation, infusion, injection of imaging exam. Discontinue saline lock post exam. If Pt. has a central line or IVAD, may access for administration according to line specific nursing protocol. Once exam is complete flush line and de-access according to line specific nursing protocol in the CT contrast administration guidelines link. - ibuprofen (MOTRIN) 200 mg tablet Take 400 mg by mouth every 6 hours as needed. Problem List As Of Date 03/04/2024 Noted Resolved Malignant neoplasm of salivary gland (HCC) [C08*03/10/2021 Encounter Status:Closed by CONOR AZEVEDO on 03/14/24 [facility] Automated basophil %Ordered By: Khadar Hill on 02-24-2024 Basophils/100 WBC (Bld) 0.4 % Normal . [facility] Comment on above: Performed By: #### C BC, BMP #### [address] Automated basophil countOrde red By: Khadar Hill on 02-24-2024 Basophils (Bld) [#/Vol] 0.1 10*3/uL Normal 0.0-0.2 [facility] Comment on above: Result Comment: PERF ORMED BY: [place] [address] PATHOLOGIST ORDNANCE TECHNICIAN RACHNA HILL M.D. Performed By: #### C BC, BMP #### [address] Automated blood monocyte cou ntOrdered By: Khadar Hill on 02-24-2024 Monocytes (Bld) [#/Vol] 1.1 10*3/uL High 0.0-0.8 [facility] Comment on above: Performed By: #### C BC, BMP #### [address] Automated eosinophil %Ordere d By: Khadar Hill on 02-24-2024 Eosinophils/100 WBC (Bld) 0.1 % Normal . [facility] Comment on above: Performed By: #### C BC, BMP #### [address] Automated eosinophil countOr dered By: Khadar Hill on 02-24-2024 Eosinophils (Bld) [#/Vol] 0.0 10*3/uL Normal 0.0-0.45 [facility] Comment on above: Performed By: #### C BC, BMP #### [address] Automated monocyte %Ordered By: Khadar Hill on 02-24-2024 Monocytes/100 WBC (Bld) 8.1 % Normal . [facility] Comment on above: Performed By: #### C BC, BMP #### [address] Automated neutrophil %Ordere d By: Khadar Hill on 02-24-2024 Neutrophils/100 WBC (Bld) 82.5 % Normal . [facility] Comment on above: Performed By: #### C BC, BMP #### [address] Basic Metabolic Panelon 02-11 Creatinine Clr Calc Pharmacy 101.70 Normal [facility] Comment on above: Result Comment: PERF ORMED BY: [place] [address] PATHOLOGIST ORDNANCE TECHNICIAN RACHNA HILL M.D. Performed By: #### C BC, BMP #### [address] GFR/1.73 sq M.predicted MDRD (S/P/Bld) [Vol rate/Area] mL/min/{1.73_m2} Normal [facility] Comment on above: Performed By: #### C BC, BMP #### [address] Calcium [Mass/volume] in Ser um or PlasmaOrdered By: Khadar Hill on 02-24-2024 Calcium [Mass/Vol] 8.5 mg/dL Low 8.6-10.3 [facility] Comment on above: Performed By: #### C BC, BMP #### [address] Carbon dioxide, total [Moles /volume] in Serum or PlasmaOrdered By: Khadar Hill on 02-24-2024 CO2 [Moles/Vol] 26.0 mmol/L Normal 21.0-31.0 [facility] Comment on above: Performed By: #### C BC, BMP #### [place] [address] [place] Chloride [Moles/volume] in S vianey or PlasmaOrdered By: Khadar Hill on 02-24-2024 Chloride [Moles/Vol] 106 mmol/L Normal 98-107 [facility] Comment on above: Performed By: #### C BC, BMP #### [address] Complete Blood Count Auto Di ffon 02-24-2024 Mean Corpuscular HGB Conc 34.5 g/dL Normal 32.5-35.6 [facility] Comment on above: Performed By: #### C ITALIA, BMP #### [facility] [address] NRBC% 0.0 /100{WBC} Normal 0-0.5 [facility] Comment on above: Performed By: #### C ITALIA, BMP #### [facility] [address] Creatinine [Mass/volume] in Serum or PlasmaOrdered By: Khadar Hill on 02-24-2024 Creatinine [Mass/Vol] 1.15 mg/dL Normal 0.70-1.30 [facility] Comment on above: Performed By: #### C ITALIA, BMP #### [address] Erythrocyte distribution wid th [Ratio] by Automated countOrdered By: Khadar Hill on 02-24-2024 Erythrocyte distribution width (RBC) [Ratio] 14.5 % Normal 12.0-14.8 [facility] Comment on above: Performed By: #### C ITALIA, BMP #### [address] Erythrocytes [#/volume] in B lood by Automated countOrdered By: Khadar Hill on 02-24-2024 RBC (Bld) [#/Vol] 4.92 10*6/uL Normal 3.90-5.60 [facility] Comment on above: Performed By: #### C ITALIA, BMP #### [address] Glucose [Mass/volume] in Ser um or PlasmaOrdered By: Khadar Hill on 02-24-2024 Glucose [Mass/Vol] 102 mg/dL High 70-100 [facility] Comment on above: ADA recommended refe rence rangeRandom Glucose Reference Range is dependent on time and content of last meal. Glucose of more than 200 mg/dL in a nonstressed, ambulatory subject supports the diagnosis of Diabetes Mellitus. Result Comment: [facility] Glucose Reference Range is dependent on time and content of last meal. Glucose of more than 200 mg/dL in a nonstressed, ambulatory subject supports the diagnosis of Diabetes Mellitus. ADA recommended reference range Performed By: #### C ITALIA, BMP #### [address] Hematocrit [Volume Fraction] of Blood by Automated countOrdered By: Khadar Hill on 02-24-2024 Hematocrit (Bld) [Volume fraction] 42.4 % Normal 38.8-50.0 [facility] Comment on above: Performed By: #### C ITALIA, BMP #### [address] Hemoglobin [Mass/volume] in BloodOrdered By: Khadar Hill on 02-24-2024 Hemoglobin (Bld) [Mass/Vol] 14.6 g/dL Normal 13.0-17.0 [facility] Comment on above: Performed By: #### C ITALIA, BMP #### [address] Leukocytes [#/volume] correc iman for nucleated erythrocytes in Blood by Automated counOrdered By: Khadar Hill on 02-24-2024 WBC corrected for nucl RBC Auto (Bld) [#/Vol] 13.2 10*3/uL High 4.1-10.5 [facility] Leukocytes [#/volume] in Blo od by Automated countOrdered By: Khadar Hill on 02-24-2024 WBC (Bld) [#/Vol] 13.2 10*3/uL High 4.1-10.5 [facility] Comment on above: Performed By: #### C ITALIA, BMP #### [place] [address] [place] Lymphocytes [#/volume] in Bl ood by Automated countOrdered By: Khadar Hill on 02-24-2024 Lymphocytes (Bld) [#/Vol] 1.2 10*3/uL Normal 1.00-4.8 [facility] Comment on above: Performed By: #### C BC, BMP #### [address] Lymphocytes/100 leukocytes i n Blood by Automated countOrdered By: Khadar Hill on 02-24-2024 Lymphocytes/100 WBC (Bld) 8.9 % Normal . [facility] Comment on above: Performed By: #### C BC, BMP #### [address] MCH [Entitic mass] by Automa iman countOrdered By: Khadar Hill on 02-24-2024 MCH (RBC) [Entitic mass] 29.7 pg Normal 27.5-35.2 [facility] Comment on above: Performed By: #### C BC, BMP #### [address] MCHC Auto (RBC) [Mass/Vol]Or dered By: Khadar Hill on 02-24-2024 MCHC (RBC) [Mass/Vol] 34.5 g/dL 32.5-35.6 [facility] MCV [Entitic volume] by Auto mated countOrdered By: Khadar Hill on 02-24-2024 MCV (RBC) [Entitic vol] 86.0 fL Normal 83.5-101 F [facility] Comment on above: Performed By: #### C BC, BMP #### [address] Neutrophils [#/volume] in Bl ood by Automated countOrdered By: Khadar Hill on 02-24-2024 Neutrophils (Bld) [#/Vol] 10.9 10*3/uL High 1.8-7.7 [facility] Comment on above: Performed By: #### C BC, BMP #### [address] No Panel InformationOrdered By: Khadar Hill on 02-24-2024 Estimated GFR (CKD-EPI) > 60.0 mL/Min [facility] Creatinine Clearance (Chem 101.70 [facility] Nucleated erythrocytes [Pres ence] in Blood by Automated countOrdered By: Khadar Hill on 02-24-2024 Nucleated RBC Auto Ql (Bld) 0.0 /100{WBC} 0-0.5 [facility] Platelet mean volume [Entiti c volume] in Blood by Automated countOrdered By: Khadar Hill on 02-24-2024 Platelet mean volume (Bld) [Entitic vol] 7.5 fL Normal 6.6-10.1 [facility] Comment on above: Performed By: #### C BC, BMP #### [address] Platelets [#/volume] in Bloo d by Automated countOrdered By: Khadar Hill on 02-24-2024 Platelets (Bld) [#/Vol] 241 10*3/uL Normal 150-450 [facility] Comment on above: Performed By: #### C BC, BMP #### [place] [address] [place] Potassium [Moles/volume] in Serum or PlasmaOrdered By: Khadar Hill on 02-24-2024 Potassium [Moles/Vol] 4.2 mmol/L Normal 3.5-5.1 [facility] Comment on above: Performed By: #### C BC, BMP #### [address] Serum or plasma anion gap de terminationOrdered By: Khadar Hill on 02-24-2024 Anion gap [Moles/Vol] 10.2 mmol/L Normal 6.0-15.0 [facility] Comment on above: Performed By: #### C BC, BMP #### [place] [address] [place] Sodium [Moles/volume] in Ser um or PlasmaOrdered By: Khadar iHll on 02-24-2024 Sodium [Moles/Vol] 138 mmol/L Normal 136-145 [facility] Comment on above: Performed By: #### C BC, BMP #### [place] [address] [place] Urea nitrogen [Mass/volume] in Serum or PlasmaOrdered By: Khadar Hill on 02-24-2024 Urea nitrogen [Mass/Vol] 18 mg/dL Normal 7-25 [facility] Comment on above: Performed By: #### C BC, [facility] #### [facility] [address] [id number] [facility] Narciso 02-23-2024 L Specimen: [id number] Received: 02/23/24 Status: DAEPravin Porter Num: [id number] Spec Type: Surgical Subm Dr: Khadar Hill DO Tissues: A Tonsils and/or Adenoids (LT LINGUAL TONSIL) B Lymph Node - Regional Resection (LT PRE-FACIAL LN) C Lymph Node - Regional Resection (LT LEVEL 1A/1B) D Lymph Node - Regional Resection (LEVEL 2A/2B) E Lymph Node - Regional Resection (LEVEL 3,4,5) Procedures: HE/53, Gross/Micro L5/3, Gross/Micro L4/2 Age/ Patient Sex Location Account Attending Physician Scarlet Mayer 48/M 4N [id number] Khadar Hill DO SPEC NUM: [id number] RECD: 02/23/24 STATUS: DAEPravin PORTER NUM: [id number] KULDEEP: 02/23/[address]: Khadar Hill DO ENTERED: 02/23/[address] [facility] [address]: SPEC TYPE: Surgical DEPT: S ORDERED: HE/53, Gross/Micro L5/3, Gross/Micro L4/2 ORDERED: HE/53, Gross/Micro L5/3, Gross/Micro L4/2 Supplemental Report Addendum 1 Entered: 03/12/241333 This case was sent to [facility] for consultation. Their diagnosis is as follows: A. Left lingual tonsil, excision: Benign tonsillar tissue. B. Left perifacial lymph node, biopsy: Fibroadipose. C. Lymph nodes, left neck level 1A and 1B, dissection: 3 lymph nodes negative for for carcinoma (0/3). Unremarkable submandibular gland. D. 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 E. Lymph nodes, left neck level 3, 4 and 5, dissection: Metastatic mucoepidermoid carcinoma (2.4 cm) in 1 of 8 lymph nodes (1/8), see comment. ---- Specimen: [id number] Received: 02/23/24 Status: ANDREA Porter Num: [id number] Spec Type: Surgical Subm Dr: Khadar Hill DO Tissues: A Tonsils and/or Adenoids (LT LINGUAL TONSIL) B Lymph Node - Regional Resection (LT PRE-FACIAL LN) C Lymph Node - Regional Resection (LT LEVEL 1A/1B) D Lymph Node - Regional Resection (LEVEL 2A/2B) E Lymph Node - Regional Resection (LEVEL 3,4,5) Procedures: HE/53, Gross/Micro L5/3, Gross/Micro L4/2 ---- Patient: Scarlet Mayer [id number] (Continued) ---- Specimen: [id number] Received: 02/23/24 (Continued) Supplemental Report (Continued) Signed (signature on file) Emil Noel MD 02/27/24 1606 ---- Specimen: [id number] Received: 02/23/24 Status: ANDREA Porter Num: [id number] Spec Type: Surgical Subm Dr: Khadar Hill DO Tissues: A Tonsils and/or Adenoids (LT LINGUAL TONSIL) B Lymph Node - Regional Resection (LT PRE-FACIAL LN) C Lymph Node - Regional Resection (LT LEVEL 1A/1B) D Lymph Node - Regional Resection (LEVEL 2A/2B) E Lymph Node - Regional Resection (LEVEL 3,4,5) Procedures: HE/53, Gross/Micro L5/3, Gross/Micro L4/2 ---- Patient: Scarlet Mayer [id number] (Continued) ---- Specimen: [id number] Received: 02/23/24 (Continued) Supplemental Report (Continued) Please see attached consultation report from [facility] for diagnostic details. Addendum Signed (signature on file) Aaron Moore MD 03/12/24 1507 ---- Pathological Diagnosis A, left lingual tonsil, excision: -Benign lingual tonsil with underlying large benign minor salivary glandular tissue without any other specific pathological alteration -No evidence of malignancy or any other neoplasm identified B, left pre-facial lymph node, biopsy: -Fragment of benign fibroadipose soft tissue without any specific histomorphological alteration C, left level 1A and 1B neck dissection: -3 benign lymph nodes without metastatic tumor (0/3) -A large nodular segment of benign major salivary glandular tissue, also without any specific histopathological alteration D, left level 2A and 2B neck dissection: -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 Normal [facility] Capillary blood glucose maranda urement by glucometer (mass/volume)Ordered By: Khadar Hill on 01-15-2024 Glucose [Mass/Vol] 88 mg/dL Normal [facility] Comment on above: Random Glucose Refer ence Range is dependent on time and content of last meal. Glucose of more than 200 mg/dL in a nonstressed, ambulatory subject supports the diagnosis of Diabetes Mellitus. Result Comment: [facility] Glucose Reference Range is dependent on time and content of last meal. Glucose of more than 200 mg/dL in a nonstressed, ambulatory subject supports the diagnosis of Diabetes Mellitus. PERFORMED BY: [place] [address] PATHOLOGIST ORDNANCE TECHNICIAN RACHNA HILL M.D. Performed By: #### G LULS #### Point of Care testing , PET tumor subq tx strat sb-m ton 01-15-2024 PET tumor subq tx strat sb-mt [facility] Main [place] [address] [place] [address] Nuclear Medicine Report Signed Patient: Scarlet Mayer MR#: [id number] : 1975 Acct:[id number] Age/Sex: 48 / M ADM Date: 01/15/24 Loc: Room: Type: [facility] Attending Dr: Khadar Hill DO Copies to: DO See Orellana II, MD Ordering Provider: Khadar Hill DO Date of Service: 01/15/24 PET/PET tumor subq tx strat sb-mt: left cervical adenopathy PET tumor subq tx strat sb-mt 01/15/2024 11:12 AM SIGNS AND SYMPTOMS: Cervical lymphadenopathy, head and neck cancer PROTOCOL: PET images were obtained of the head and neck and from skull base to mid thigh after intravenous radiotracer administration. After attenuation correction of PET images and low dose CT of the same anatomy, fused PET CT images were generated and reconstructed in axial, sagittal, and coronal planes. COMPARISON: 01/07/2021, 01/05/2024, and 02/22/2021 RADIOPHARMACEUTICAL: 12.34 mCi of intravenous fluorine 18 FDG. BLOOD GLUCOSE: 88 mg/dL FINDINGS: Head and neck: Postsurgical changes are noted consistent with previous resection and lymph node dissection at the right lingual tonsils and within the right side of the neck. No residual right-sided lymphadenopathy is appreciated. There is an enlarged lymph node in the left level 2A measuring 1.5 x 2.4 cm in greatest axial dimension. There is increased FDG activity within maximum SUV of approximately 3.2. Additional prominent but smaller and less FDG avid lymph nodes are noted inferior to this. This is accompanied by soft tissue prominence in the left lingual tonsils partially effacing the left piriform sinus. There is increased FDG activity in this location with a maximum SUV of 3.2. Skull base to mid thigh: There is physiologic radiotracer accumulation within the brain, myocardium, liver, spleen, kidneys, ureters, bladder, and bowel. Mildly FDG avid left level 2 and level 3 lymphadenopathy is redemonstrated with focal abnormal increased FDG accumulation in the left lingual tonsils as seen on the head and neck portion of the exam. No evidence of distant lymphadenopathy or metastatic disease. There is a hiatal hernia with gastric fundus in the lower mediastinum. PET/PET tumor subq tx strat sb-mt IMPRESSION: Findings suggest a primary malignancy of the left lingual tonsils with no metastatic disease along the left level 2 and level 3 as above. No evidence of distant lymphadenopathy or metastatic disease, as above. Impression dictated by: See Mancera M.D.01/15/2024 3:19 PM Dictation Location: [place] [address] Transcribed By: [facility] 01/15/24 1519 Dictated By: See Mancera II, MD 01/15/24 1503 Signed By: 01/15/24 1519 Normal [facility] 01-10-2024 L Specimen: [id number] Received: 01/10/24 Status: ANDREA Porter Num: [id number] Spec Type: Cytology Subm Dr: Khadar Hill DO Tissues: A FNA SLIDES PATH (LT NECK MASS) Procedures: S 100, HE/2, Gross/Micro L4, GFAP, AE1-AE3, CK5 6, CK 7, p63, -, Cyto Int and Re, p40, PAPSTN/16 Age/ Patient Sex Location Account Attending Physician Scarlet Mayer 48/M [place] [id number] Khadar Hill DO SPEC NUM: [id number] RECD: 01/10/24 STATUS: ANDREA PORTER NUM: [id number] KULDEEP: 01/10/24-[address]: Khadar Hill DO ENTERED: 01/10/24-[address] [facility] [address]: SPEC TYPE: Cytology DEPT: CNG ENTERED BY: [id number] RECV BY: [id number] ORDERED: S 100, HE/2, Gross/Micro L4, GFAP, AE1-AE3, CK5 6, CK 7, p63, -, Cyto Int and Re, p40, PAPSTN/16 ORDERED: S 100, HE/2, Gross/Micro L4, GFAP, AE1-AE3, CK5 6, CK 7, p63, -, Cyto Int and Re, p40, PAPSTN/16 Supplemental Report Addendum 1 Entered: 03/13/24-1554 This case was sent to [facility] for consultation. Their diagnosis is as follows: Positive for malignant cells. 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 Please see attached consultation report from [facility] for diagnostic details. Addendum Signed (signature on file) Aaron Moore MD 03/13/24 8195 ---- Pathological Diagnosis Mass, left neck, fine-needle aspiration: Abundant mucoid material with rare groups of atypical epithelial cells, suspicious for recurrent mucoepidermoid carcinoma. ---- Specimen: [id number] Received: 01/10/24 Status: ANDREA Porter Num: [id number] Spec Type: Cytology Subm Dr: Khadar W Murcek,DO Tissues: A FNA SLIDES PATH (LT NECK MASS) Procedures: S 100, HE/2, Gross/Micro L4, GFAP, AE1-AE3, CK5 6, CK 7, p63, -, Cyto Int and Re, p40, PAPSTN/16 ---- Patient: Scarlet Mayer [id number] (Continued) ---- Specimen: [id number] Received: 01/10/24 (Continued) Signed (signature on file) Aaron Moore MD 01/11/24 1823 ---- Specimen: [id number] Received: 01/10/24 Status: ANDREA Porter Num: [id number] Spec Type: Cytology Subm Dr: Khadar Hill DO Tissues: A FNA SLIDES PATH (LT NECK MASS) Procedures: S 100, HE/2, Gross/Micro L4, GFAP, AE1-AE3, CK5 6, CK 7, p63, -, Cyto Int and Re, p40, PAPSTN/16 ---- Patient: Scarlet Mayer [id number] (Continued) ---- Specimen: [id number] Received: 01/10/24 (Continued) Clinical Information History of low grade Mucoepidermoid Ca Gross Description Received in Cytolyt labeled with the patient's name, date of and left neck mass is <1 ml very pale pink clear fixed fluid. 1 cell blocks are prepared. 16smears stained pap are additionally received. (ID/ca) CPT Codes 96148 [id number] ---- ---- Specimen: [id number] Received: 01/10/24 Status: ANDREA Porter Num: [id number] Spec Type: Cytology Subm Dr: Khadar Hill DO Tissues: A FNA SLIDES PATH (LT NECK MASS) Procedures: S 100, HE/2, Gross/Micro L4, GFAP, AE1-AE3, CK5 6, CK 7, p63, -, Cyto Int and Re, p40, PAPSTN/16 ---- Patient: Scarlet Mayer [id number] (Continued) ---- Signed (signature on file) Aaron Moore MD 01/11/24 1823 Normal [facility] CT Chest W contrast [place] IMPRESSION: Stable appearance of the chest. 2 mm left upper lobe nodules, stable. Transcribe Date/Time: May 11 2022 10:51A Dictated by: ADILENE FALCON MD This examination was interpreted and the report reviewed and electronically signed by: ADILENE FALCON MD on May 11 2022 11:11AM EST Thank you for allowing us to participate in the care of your patient. Should there be any questions regarding this interpretation, please call [phone]. If you are unable to reach us at the number above, please feel free to contact [facility] at [phone]. DIVISION OF RADIOLOGY * * *Final Report* * * DATE OF EXAM: May 11 2022 9:22AM [facility] 0539 - CT CHEST W IVCON / PROCEDURE REASON: Malignant neoplasm of head, face and neck (HCC) * * * * Physician Interpretation * * * * RESULT: EXAMINATION: CHEST CT WITH CONTRAST CLINICAL HISTORY: Neoplasm: head/neck, rx monitor or follow up Technique: Spiral CT acquisition of the chest from the thoracic inlet to the upper abdomen following IV contrast. MQ: CTCW_6 Contrast: 150 mL Isovue [address] Radiation dose: Integrated Dose-length product (DLP) for this visit = 895 mGy*cm CT Dose Reduction Employed: Automated exposure control (AEC) Comparison: CT chest 10/12/2021 RESULT: Limitations: None. Lines, tubes, and devices: None. Lung parenchyma and airways: No consolidative process. The trachea and major airways appear patent. 2 mm left upper lobe nodules, image 46, series 4, stable. Pleural space: No pleural effusion. No pleural thickening. Lower neck, lymph nodes, and mediastinum: The imaged thyroid gland is normal. No lymphadenopathy in the supraclavicular, axillary, mediastinal, or hilar regions. Small hiatal hernia is again appreciated. Heart, pericardium, and thoracic vessels: No substantial pericardial effusion. The thoracic aorta is normal in caliber. Bones and soft tissues: No osseous destructive process. Upper abdomen: Limited images through the upper abdomen appears stable. Carbonation Equipment Operator (topogram) images: Unremarkable. DIVISION OF RADIOLOGY Provider, [facility] - 05/11/2022 * * *Final Report* * * DATE OF EXAM: May 11 2022 9:22AM [facility] 0539 - CT CHEST W [facility] / PROCEDURE REASON: Malignant neoplasm of head, face and neck (HCC) * * * * Physician Interpretation * * * * RESULT: EXAMINATION: CHEST CT WITH CONTRAST CLINICAL HISTORY: Neoplasm: head/neck, rx monitor or follow up Technique: Spiral CT acquisition of the chest from the thoracic inlet to the upper abdomen following IV contrast. MQ: CTCW_6 Contrast: 150 mL Isovue [address] Radiation dose: Integrated Dose-length product (DLP) for this visit = 895 mGy*cm CT Dose Reduction Employed: Automated exposure control (AEC) Comparison: CT chest 10/12/2021 RESULT: Limitations: None. Lines, tubes, and devices: None. Lung parenchyma and airways: No consolidative process. The trachea and major airways appear patent. 2 mm left upper lobe nodules, image 46, series 4, stable. Pleural space: No pleural effusion. No pleural thickening. Lower neck, lymph nodes, and mediastinum: The imaged thyroid gland is normal. No lymphadenopathy in the supraclavicular, axillary, mediastinal, or hilar regions. Small hiatal hernia is again appreciated. Heart, pericardium, and thoracic vessels: No substantial pericardial effusion. The thoracic aorta is normal in caliber. Bones and soft tissues: No osseous destructive process. Upper abdomen: Limited images through the upper abdomen appears stable. Carbonation Equipment Operator (topogram) images: Unremarkable. IMPRESSION IMPRESSION: Stable appearance of the chest. 2 mm left upper lobe nodules, stable. Transcribe Date/Time: May 11 2022 10:51A Dictated by: ADILENE FALCON MD This examination was interpreted and the report reviewed and electronically signed by: ADILENE FALCON MD on May 11 2022 11:11AM EST Thank you for allowing us to participate in the care of your patient. Should there be any questions regarding this interpretation, please call [phone]. If you are unable to reach us at the number above, please feel free to contact [facility] at [phone]. [facility] CT Neck W contrast [place] 09-2 IMPRESSION: Slightly increased size of a few left level IIa lymph nodes, although nonenlarged by size criteria. Otherwise stable postoperative changes in the right neck. Transcribe Date/Time: May 11 2022 9:45A Dictated by: ANTONIETTA ZAMORA MD This examination was interpreted and the report reviewed and electronically signed by: ANTONIETTA ZAMORA MD on May 11 2022 9:45AM EST Thank you for allowing us to participate in the care of your patient. Should there be any questions regarding this interpretation, please call [phone]. If you are unable to reach us at the number above, please feel free to contact [facility] at [phone]. 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 Malignant neoplasm of parotid gland. Comparison: 10/12/2021 contrast-enhanced soft tissue neck CT Technique: A series of contiguous helical scans were performed from the skull base to the aortic arch following bolus injection of nonionic contrast: Contrast: Isovue 300. Contrast Dose: 150 cc Route of Administration: IV CT Radiation dose: Integrated Dose-length product (DLP) for this visit = 895 mGy*cm. CT Dose Reduction Employed: Automated exposure control (AEC) RESULT: Postoperative change: Partial right pharyngectomy and right palatine and lingual tonsillectomy and right selective lymph node dissection. Superimposed asymmetric fatty atrophy of the right parotid and right mandibular glands and asymmetric stranding in the upper right carotid space may reflect sequelae of prior postradiation treatment changes, although the degree of stranding in the right carotid space and previously seen reticulation and stranding in the lateral right perimandibular and right neck soft tissues and thickening of the right platysma muscle has improved from the prior exam. Suprahyoid Neck: Unremarkable appearance of the nasopharynx. Stable postoperative changes in the pharynx on the right with disruption of the right parapharyngeal soft tissue planes. The left paravertebral soft tissue planes appear preserved. Stable surgical clips along the posterolateral right tongue and diminished volume along the posterior right tongue and right lingual tonsil likely related to prior resection. Otherwise unremarkable appearance of the oral cavity and floor of mouth within the constraints of streak artifact from dental amalgam. Stable appearance of the parotid and subareolar parenchyma with postradiation treatment changes on the right as noted above. Masonry Instructor spaces appear normal. Infrahyoid Neck: Hypopharynx, larynx, and imaged infraglottic trachea appear normal. Imaged upper esophagus is unremarkable. Thyroid gland is homogeneous without evidence of discrete nodule. Lymph Nodes: No cervical lymphadenopathy by size criteria. Slightly increased size of a left level IIa lymph nodes with similar slightly heterogenous attenuation: Slightly increased size of a left level IIa lymph node now measuring 1.2 cm in short axis (series 4, image 72), previously 1 cm. Slightly increased size of a left level IIa lymph node now measuring 0.9 cm in short axis (series 4, image 79), previously 0.8 cm. Slightly increased size of a left level IIa lymph node now measuring 0.8 cm in short axis (series 2, image 84), previously 0.6 cm. Carotid Space: No mass. Slightly improved postoperative/posttrea tment stranding in the upper right carotid space as above. Surgical clips along the margin of the right internal jugular vein with moderate focal narrowing at the level of the mandibular angle and C2-C3 disc space. Patent extracranial carotid systems and internal jugular veins bilaterally. Orbits and Skull Base: Orbital soft tissue planes are preserved. No evidence of an osteolytic or osteoblastic process in the skull base. Minimal mucosal thickening in the anterior ethmoid air cells, greater on the right. Mild lobulated mucosal thickening in the right maxillary sinus which is new from the prior exam. The mastoid air cells and middle ear cavities are clear. Imaged intracranial contents: No abnormal intracranial enhancement, mass effect, or hydrocephalus. Cervical spine and remaining osseous structures: Straightening of the cervical lordosis with otherwise preserved vertebral body alignment. There are no significant spondylotic changes in the visualized spine. No discrete osteolytic or osteoblastic process. Lung apices: For detailed intrathoracic findings, please see concurrent CT chest which is reported under a separate accession. 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 Malignant neoplasm of parotid gland. Comparison: 10/12/2021 contrast-enhanced soft tissue neck CT Technique: A series of contiguous helical scans were performed from the skull base to the aortic arch following bolus injection of nonionic contrast: Contrast: Isovue 300. Contrast Dose: 150 cc Route of Administration: IV CT Radiation dose: Integrated Dose-length product (DLP) for this visit = 895 mGy*cm. CT Dose Reduction Employed: Automated exposure control (AEC) RESULT: Postoperative change: Partial right pharyngectomy and right palatine and lingual tonsillectomy and right selective lymph node dissection. Superimposed asymmetric fatty atrophy of the right parotid and right mandibular glands and asymmetric stranding in the upper right carotid space may reflect sequelae of prior postradiation treatment changes, although the degree of stranding in the right carotid space and previously seen reticulation and stranding in the lateral right perimandibular and right neck soft tissues and thickening of the right platysma muscle has improved from the prior exam. Suprahyoid Neck: Unremarkable appearance of the nasopharynx. Stable postoperative changes in the pharynx on the right with disruption of the right parapharyngeal soft tissue planes. The left paravertebral soft tissue planes appear preserved. Stable surgical clips along the posterolateral right tongue and diminished volume along the posterior right tongue and right lingual tonsil likely related to prior resection. Otherwise unremarkable appearance of the oral cavity and floor of mouth within the constraints of streak artifact from dental amalgam. Stable appearance of the parotid and subareolar parenchyma with postradiation treatment changes on the right as noted above. Masonry Instructor spaces appear normal. Infrahyoid Neck: Hypopharynx, larynx, and imaged infraglottic trachea appear normal. Imaged upper esophagus is unremarkable. Thyroid gland is homogeneous without evidence of discrete nodule. Lymph Nodes: No cervical lymphadenopathy by size criteria. Slightly increased size of a left level IIa lymph nodes with similar slightly heterogenous attenuation: Slightly increased size of a left level IIa lymph node now measuring 1.2 cm in short axis (series 4, image 72), previously 1 cm. Slightly increased size of a left level IIa lymph node now measuring 0.9 cm in short axis (series 4, image 79), previously 0.8 cm. Slightly increased size of a left level IIa lymph node now measuring 0.8 cm in short axis (series 2, image 84), previously 0.6 cm. Carotid Space: No mass. Slightly improved postoperative/posttrea tment stranding in the upper right carotid space as above. Surgical clips along the margin of the right internal jugular vein with moderate focal narrowing at the level of the mandibular angle and C2-C3 disc space. Patent extracranial carotid systems and internal jugular veins bilaterally. Orbits and Skull Base: Orbital soft tissue planes are preserved. No evidence of an osteolytic or osteoblastic process in the skull base. Minimal mucosal thickening in the anterior ethmoid air cells, greater on the right. Mild lobulated mucosal thickening in the right maxillary sinus which is new from the prior exam. The mastoid air cells and middle ear cavities are clear. Imaged intracranial contents: No abnormal intracranial enhancement, mass effect, or hydrocephalus. Cervical spine and remaining osseous structures: Straightening of the cervical lordosis with otherwise preserved vertebral body alignment. There are no significant spondylotic changes in the visualized spine. No discrete osteolytic or osteoblastic process. Lung apices: For detailed intrathoracic findings, please see concurrent CT chest which is reported under a separate accession. Carbonation Equipment Operator (topogram) images: Noncontributory IMPRESSION IMPRESSION: Slightly increased size of a few left level IIa lymph nodes, although nonenlarged by size criteria. Otherwise stable postoperative changes in the right neck. Transcribe Date/Time: May 11 2022 9:45A Dictated by: ANTONIETTA ZAMORA MD This examination was interpreted and the report reviewed and electronically signed by: ANTONIETTA ZAMORA MD on May 11 2022 9:45AM EST Thank you for allowing us to participate in the care of your patient. Should there be any questions rega (more content not included)... [facility] CT Neck W contrast IVOrdered By: [facility] Provider on 05-11-2022 [facility] No Panel Informationon 05-11 Radiology Study observation (narrative) [facility] CTA LOW EXT RT WO W CONon CTA LOW EXT RT WO W CON EXAMINATION: CTA LOW EXT RT WO W CON, 10/27/2021 HISTORY: Pain COMPARISON: X-ray right femur from 10/27/2021 TECHNIQUE: CT of the right thigh was performed following 100 mL Omnipaque 350 iodine contrast intravenously using vascular protocol. 3-D reconstructions performed on separate recon workstation. In addition coronal and sagittal images were reconstructed. MIP (maximum intensity projection) images were performed. Dose reduction techniques were achieved by using automated exposure control and/or adjustment of mA and/or kV according to patient size and/or use of iterative reconstruction technique. FINDINGS: The right external iliac artery, right common femoral artery, profunda femoris artery and superficial femoral artery are patent without narrowing, injury or contrast extravasation. The right popliteal artery and trifurcation are patent. Evaluation of the soft tissues demonstrate 2 metallic foreign body in the anterior right thigh measuring 5 mm and 6 mm in size, likely the rectus femoris muscle. There is small amount of air in the region consistent with penetrating injury. No obvious hematoma is seen. Bony structures are unremarkable for age trauma. Prior surgery in the right knee with mild degenerative changes. IMPRESSION: 1. Patent right femoropopliteal arterial system without narrowing or contrast extravasation to suggest an injury. 2. Small metallic foreign bodies seen in the anterior right thigh muscle corresponding with the x-ray findings, measuring 5 mm and 6 mm in size consistent with shrapnel. Electronically authenticated by: JUDIE JONES Date: 2021-10-27 20:21 Normal [facility] CTA UPPER EXT RT WO W CONon 10-27-2021 CTA UPPER EXT RT WO W CON EXAMINATION: CTA UPPER EXT RT WO W CON, 10/27/2021 HISTORY: Pain COMPARISON: X-ray right forearm from 10/27/2021. TECHNIQUE: CT of the right forearm was performed using 100 mL Omnipaque 350 iodine contrast with arterial protocol. 3-D reconstructions performed on separate workstation. MIP (maximum intensity projection) images were performed. Dose reduction techniques were achieved by using automated exposure control and/or adjustment of mA and/or kV according to patient size and/or use of iterative reconstruction technique. FINDINGS: The right brachial artery is patent without narrowing. The brachial artery branching into the radial artery, interosseous artery and the ulnar artery are visualized without any narrowing or contrast extravasation. The right radial artery and ulnar artery are opacified throughout their course. Evaluation of the distal and palmar vessels are limited due to resolution consolidation. The 3 radiopaque metallic densities seen on the right forearm x-ray are visualized on the inferior and lateral aspect of the right forearm within the subcutaneous plane. The bony structures including the scan are unremarkable. No obvious soft tissue hematoma or air within the forearm is seen. IMPRESSION: 1. Patent right brachial artery, right radial artery, right interosseous artery and right ulnar artery, without narrowing, obstruction or extravasation. 2. Metallic radiopaque shrapnel visualized in the lateral and posterior subcutaneous region of the right forearm, measuring 6 mm, 7 mm and 3 mm in size. Electronically authenticated by: JUDIE JONES Date: 2021-10-27 20:09 Normal [facility] XR FEMUR RTon 10-27-2021 XR FEMUR RT EXAM: XR FEMUR RT HISTORY: Pain COMPARISON: None. TECHNIQUE: Frontal and lateral views of the right femur are performed. FINDINGS: There are 2 irregular metallic soft tissue foreign bodies within the soft tissues of the anterolateral mid thigh. The largest of these measures approximately 8 to 9 mm in length. There is no fracture. There are bony changes of prior ACL reconstruction. IMPRESSION: There are 2 metallic soft tissue foreign bodies within the mid thigh, as described above. Electronically authenticated by: RICARDO BOYD Date: 2021-10-27 19:00 Normal [facility] XR FOREARM RT 2Von 2 XR FOREARM RT 2V EXAM: XR FOREARM RT 2V HISTORY: Pain COMPARISON: None. TECHNIQUE: 2 views of the right forearm are performed. FINDINGS: There are 3 small metallic soft tissue foreign bodies along the radial aspect of the proximal forearm, the largest measuring 5 mm. There is no acute fracture. IMPRESSION: There are 3 metallic radiopaque foreign densities along the proximal forearm. No acute bony abnormality. Electronically authenticated by: RICARDO BOYD Date: 2021-10-27 18:59 Normal [facility] CT Chest W contrast Gordo IMPRESSION: Stable CT of the chest. Unchanged appearance of left upper lobe 2 mm nodule. No new or enlarging nodules are seen. No evidence of bulky intrathoracic lymphadenopathy. Transcribe Date/Time: Oct 12 2021 10:47A Dictated by: MOI ROSSI MD This examination was interpreted and the report reviewed and electronically signed by: MOI ROSSI MD on Oct 12 2021 11:27AM EST Thank you for allowing us to participate in the care of your patient. Should there be any questions regarding this interpretation, please call [phone]. If you are unable to reach us at the number above, please feel free to [facility] at [phone]. DIVISION OF RADIOLOGY * * *Final Report* * * DATE OF EXAM: Oct 12 2021 9:36AM [facility] 0539 - CT CHEST W IVCON / PROCEDURE REASON: multiple diagnoses * * * * Physician Interpretation * * * * RESULT: EXAMINATION: CHEST CT WITH CONTRAST CLINICAL HISTORY: Advanced head/neck cancer, monitor, post tx Technique: Spiral CT acquisition of the chest from the thoracic inlet to the upper abdomen following IV contrast. MQ: CTCW_6 Contrast: 150 mL Omnipaque [address] Radiation dose: Integrated Dose-length product (DLP) for this visit = 1053 mGy*cm CT Dose Reduction Employed: Automated exposure control (AEC) Comparison: CT chest performed 07/16/2021 RESULT: Limitations: None. Lines, tubes, and devices: None. Lung parenchyma and airways: No lobar consolidation is noted. There is a stable 2 mm nodule in the left upper lobe (3:43). No new or enlarging nodules are seen. The central airways are widely patent. Pleural space: No pleural effusion. No pleural thickening. Lower neck, lymph nodes, and mediastinum: The imaged thyroid gland is normal. No lymphadenopathy in the supraclavicular, axillary, mediastinal, or hilar regions. Heart, pericardium, and thoracic vessels: The thoracic aorta and main pulmonary artery are normal in caliber. The cardiac chambers are normal in size. No coronary artery atherosclerotic calcifications are noted, although the study is not optimized for coronary assessment. No pericardial effusion or thickening. Bones and soft tissues: Degenerative change is noted in the thoracic spine. No destructive osseous lesions are seen. Superficial soft tissues are unremarkable. Upper abdomen: No abnormality in the imaged upper abdomen. Carbonation Equipment Operator (topogram) images: No additional findings. DIVISION OF RADIOLOGY Provider, [facility] - 10/12/2021 * * *Final Report* * * DATE OF EXAM: Oct 12 2021 9:36AM [facility] 0539 - CT CHEST W IVCON / PROCEDURE REASON: multiple diagnoses * * * * Physician Interpretation * * * * RESULT: EXAMINATION: CHEST CT WITH CONTRAST CLINICAL HISTORY: Advanced head/neck cancer, monitor, post tx Technique: Spiral CT acquisition of the chest from the thoracic inlet to the upper abdomen following IV contrast. MQ: CTCW_6 Contrast: 150 mL Omnipaque [address] Radiation dose: Integrated Dose-length product (DLP) for this visit = 1053 mGy*cm CT Dose Reduction Employed: Automated exposure control (AEC) Comparison: CT chest performed 07/16/2021 RESULT: Limitations: None. Lines, tubes, and devices: None. Lung parenchyma and airways: No lobar consolidation is noted. There is a stable 2 mm nodule in the left upper lobe (3:43). No new or enlarging nodules are seen. The central airways are widely patent. Pleural space: No pleural effusion. No pleural thickening. Lower neck, lymph nodes, and mediastinum: The imaged thyroid gland is normal. No lymphadenopathy in the supraclavicular, axillary, mediastinal, or hilar regions. Heart, pericardium, and thoracic vessels: The thoracic aorta and main pulmonary artery are normal in caliber. The cardiac chambers are normal in size. No coronary artery atherosclerotic calcifications are noted, although the study is not optimized for coronary assessment. No pericardial effusion or thickening. Bones and soft tissues: Degenerative change is noted in the thoracic spine. No destructive osseous lesions are seen. Superficial soft tissues are unremarkable. Upper abdomen: No abnormality in the imaged upper abdomen. Carbonation Equipment Operator (topogram) images: No additional findings. IMPRESSION IMPRESSION: Stable CT of the chest. Unchanged appearance of left upper lobe 2 mm nodule. No new or enlarging nodules are seen. No evidence of bulky intrathoracic lymphadenopathy. Transcribe Date/Time: Oct 12 2021 10:47A Dictated by: MOI ROSSI MD This examination was interpreted and the report reviewed and electronically signed by: MOI ROSSI MD on Oct 12 2021 11:27AM EST Thank you for allowing us to participate in the care of your patient. Should there be any questions regarding this interpretation, please call [phone]. If you are unable to reach us at the number above, please feel free to contact [facility] at [phone]. [facility] CT Neck W contrast Gordo 03-0 IMPRESSION: Stable postoperative and posttreatment changes as discussed. No clear evidence for disease progression/recurrence . Transcribe Date/Time: Oct 12 2021 9:23A Dictated by: VIVIANE BATEMAN MD This examination was interpreted and the report reviewed and electronically signed by: VIVIANE BATEMAN MD on Oct 12 2021 9:38AM EST Thank you for allowing us to participate in the care of your patient. Should there be any questions regarding this interpretation, please call [phone]. If you are unable to reach us at the number above, please feel free to contact [facility] at [phone]. DIVISION OF RADIOLOGY * * *Final Report* * * DATE OF EXAM: Oct 12 2021 9:19AM [facility] 0013 - CT NECK SOFT TISSUE W IVCON / PROCEDURE REASON: multiple diagnoses * * * * Physician Interpretation * * * * RESULT: CT NECK SOFT TISSUE W IVCON HISTORY: Head and neck cancer (HCC) Malignant neoplasm of head, face and neck (HCC). This information is taken directly from the traffic recorder system. TECHNIQUE: Routine neck CT with contrast. 3 mm axial scans. Sagittal and coronal reformations. Contrast: IV 150 ml of Omnipaque 300 CT Radiation dose: Integrated Dose-length product (DLP) for this visit = 1053 mGy*cm CT Dose Reduction Employed: Automated exposure control (AEC) Previous study for comparison 07/16/2021. RESULT: Skin thickening, reticulation of the subcutaneous fat, mild prominence of the platysma, atrophy with increased enhancement of the major salivary glands, and mild enhancement of the laryngeal mucosa noted, and compatible with prior radiation therapy. These changes are asymmetrically greater on the right. Thyroid is relatively small. Otherwise unremarkable. Surgical clips are present in the right neck related to prior selective neck dissection as there is preservation of the right internal jugular vein. When comparing with the prior study, general mass effect appears stable to slightly decreased, hazy intermediate signal involving and surrounding the right carotid sheath, also likely representing postoperative change. Small lymph nodes are present away from the area of prior neck dissection, but there is no new adenopathy present on the right. Stable lymph nodes in the left neck measuring maximum 1 cm in short axis dimension. No clear evidence for any new disease in the left neck. Epiglottis retains normal thin profile most easily appreciated in the axial and sagittal plane. Stable asymmetric tissue volume loss at right lateral pharynx and right tongue base likely related to primary resection. Technical arterial and venous vascular enhancement in the neck and head. No new mass effect or enhancement involving the brain within the field of view. Paranasal sinus chambers, mastoid air cells and middle ear cavities are clear. Airway is patent. Lung apices are grossly clear. No gross bone destruction. No significant spondylosis. Cervical and upper thoracic spinal canal and foramina are grossly patent through the lower limit of the field of view which is at T5-T6. DIVISION OF RADIOLOGY Provider, [facility] - 10/12/2021 * * *Final Report* * * DATE OF EXAM: Oct 12 2021 9:19AM [facility] 0013 - CT NECK SOFT TISSUE W IVCON / PROCEDURE REASON: multiple diagnoses * * * * Physician Interpretation * * * * RESULT: CT NECK SOFT TISSUE W IVCON HISTORY: Head and neck cancer (HCC) Malignant neoplasm of head, face and neck (HCC). This information is taken directly from the traffic recorder system. TECHNIQUE: Routine neck CT with contrast. 3 mm axial scans. Sagittal and coronal reformations. Contrast: IV 150 ml of Omnipaque 300 CT Radiation dose: Integrated Dose-length product (DLP) for this visit = 1053 mGy*cm CT Dose Reduction Employed: Automated exposure control (AEC) Previous study for comparison 07/16/2021. RESULT: Skin thickening, reticulation of the subcutaneous fat, mild prominence of the platysma, atrophy with increased enhancement of the major salivary glands, and mild enhancement of the laryngeal mucosa noted, and compatible with prior radiation therapy. These changes are asymmetrically greater on the right. Thyroid is relatively small. Otherwise unremarkable. Surgical clips are present in the right neck related to prior selective neck dissection as there is preservation of the right internal jugular vein. When comparing with the prior study, general mass effect appears stable to slightly decreased, hazy intermediate signal involving and surrounding the right carotid sheath, also likely representing postoperative change. Small lymph nodes are present away from the area of prior neck dissection, but there is no new adenopathy present on the right. Stable lymph nodes in the left neck measuring maximum 1 cm in short axis dimension. No clear evidence for any new disease in the left neck. Epiglottis retains normal thin profile most easily appreciated in the axial and sagittal plane. Stable asymmetric tissue volume loss at right lateral pharynx and right tongue base likely related to primary resection. Technical arterial and venous vascular enhancement in the neck and head. No new mass effect or enhancement involving the brain within the field of view. Paranasal sinus chambers, mastoid air cells and middle ear cavities are clear. Airway is patent. Lung apices are grossly clear. No gross bone destruction. No significant spondylosis. Cervical and upper thoracic spinal canal and foramina are grossly patent through the lower limit of the field of view which is at T5-T6. IMPRESSION IMPRESSION: Stable postoperative and posttreatment changes as discussed. No clear evidence for disease progression/recurrence . Transcribe Date/Time: Oct 12 2021 9:23A Dictated by: VIVIANE BATEMAN MD This examination was interpreted and the report reviewed and electronically signed by: VIVIANE BATEMAN MD on Oct 12 2021 9:38AM EST Thank you for allowing us to participate in the care of your patient. Should there be any questions regarding this interpretation, please call [phone]. If you are unable to reach us at the number above, please feel free to contact [facility] at [phone]. [facility] CT Neck W contrast IVOrdered By: Ccf Provider on 10-12-2021 [facility] No Panel Informationon 10-12 Radiology Study observation (narrative) [facility] CT Chest W contrast Gordo IMPRESSION: 1. Less than 2 mm left upper lobe nodule, not clearly identified on the prior PET/CT examination, likely on the basis of differences in technique. Given the patient's history, suggest correlation with a follow-up examination in 6-12 months to assess for stability. 2. No substantial intrathoracic adenopathy is identified. Transcribe Date/Time: Jul 16 2021 1:39P Dictated by: ADILENE FALCON MD This examination was interpreted and the report reviewed and electronically signed by: ADILENE FALCON MD on Jul 16 2021 2:02PM EST Thank you for allowing us to participate in the care of your patient. Should there be any questions regarding this interpretation, please call [phone]. If you are unable to reach us at the number above, please feel free to contact [facility] at [phone]. DIVISION OF RADIOLOGY * * *Final Report* * * DATE OF EXAM: Jul 16 2021 1:38PM [facility] 0539 - CT CHEST W IVCON / PROCEDURE REASON: Malignant neoplasm of head, face and neck (HCC) * * * * Physician Interpretation * * * * RESULT: EXAMINATION: CHEST CT WITH CONTRAST Indication: Advanced head and neck carcinoma Technique: Spiral CT acquisition of the chest from the thoracic inlet to the upper abdomen following IV contrast. M: CTCW_4 Contrast: 150 mL Omnipaque [address] Dose-Length Product: 1008 mGy*cm CT Dose Reduction Employed: Automated exposure control (AEC) Comparison: PET/CT 01/07/2021 RESULT: Limitations: None. Lines, tubes, and devices: None. Lung parenchyma and airways: No consolidative process. The trachea and major airways appear patent. Punctate, subpleural, less than 2 mm left upper lobe nodule, image 47, series 3 is not clearly appreciated on prior study, likely on the basis of differences in technique. Pleural space: No pleural effusion. No substantial pleural thickening. Lower neck, lymph nodes, and mediastinum: The visualized thyroid gland appears unremarkable. No substantial supraclavicular or axillary lymphadenopathy. Subcentimeter mediastinal lymph nodes are noted, none of which appear pathologically enlarged. No substantial mediastinal or hilar adenopathy is identified. Small hiatal hernia is noted. Heart, pericardium, and thoracic vessels: The thoracic aorta is normal in caliber. No substantial pericardial effusion. Bones/Soft Tissues: Mild degenerative change within the thoracic spine. No osseous destructive process is identified. Upper Abdomen: Limited images through the upper abdomen appear stable. Carbonation Equipment Operator (topogram) images: No additional findings. DIVISION OF RADIOLOGY Provider, [facility] - 07/16/2021 * * *Final Report* * * DATE OF EXAM: Jul 16 2021 1:38PM [facility] 0539 - CT CHEST W IVCON / PROCEDURE REASON: Malignant neoplasm of head, face and neck (HCC) * * * * Physician Interpretation * * * * RESULT: EXAMINATION: CHEST CT WITH CONTRAST Indication: Advanced head and neck carcinoma Technique: Spiral CT acquisition of the chest from the thoracic inlet to the upper abdomen following IV contrast. M: CTCW_4 Contrast: 150 mL Omnipaque [address] Dose-Length Product: 1008 mGy*cm CT Dose Reduction Employed: Automated exposure control (AEC) Comparison: PET/CT 01/07/2021 RESULT: Limitations: None. Lines, tubes, and devices: None. Lung parenchyma and airways: No consolidative process. The trachea and major airways appear patent. Punctate, subpleural, less than 2 mm left upper lobe nodule, image 47, series 3 is not clearly appreciated on prior study, likely on the basis of differences in technique. Pleural space: No pleural effusion. No substantial pleural thickening. Lower neck, lymph nodes, and mediastinum: The visualized thyroid gland appears unremarkable. No substantial supraclavicular or axillary lymphadenopathy. Subcentimeter mediastinal lymph nodes are noted, none of which appear pathologically enlarged. No substantial mediastinal or hilar adenopathy is identified. Small hiatal hernia is noted. Heart, pericardium, and thoracic vessels: The thoracic aorta is normal in caliber. No substantial pericardial effusion. Bones/Soft Tissues: Mild degenerative change within the thoracic spine. No osseous destructive process is identified. Upper Abdomen: Limited images through the upper abdomen appear stable. Carbonation Equipment Operator (topogram) images: No additional findings. IMPRESSION IMPRESSION: 1. Less than 2 mm left upper lobe nodule, not clearly identified on the prior PET/CT examination, likely on the basis of differences in technique. Given the patient's history, suggest correlation with a follow-up examination in 6-12 months to assess for stability. 2. No substantial intrathoracic adenopathy is identified. Transcribe Date/Time: Jul 16 2021 1:39P Dictated by: ADILENE FALCON MD This examination was interpreted and the report reviewed and electronically signed by: ADILENE FALCON MD on Jul 16 2021 2:02PM EST Thank you for allowing us to participate in the care of your patient. Should there be any questions regarding this interpretation, please call [phone]. If you are unable to reach us at the number above, please feel free to contact [facility] at [phone]. [facility] CT Chest W contrast IVOrdere d By: [facility] Provider on 07-16-[address] [facility] [address] Neck W contrast Gordo 12-0 IMPRESSION: 1. Interval neck lymph node dissection and surgical changes. 2. No discrete soft tissue mass or new abnormality identified. 3. Post intervention changes and close follow-up is warranted. Transcribe Date/Time: Jul 16 2021 2:19P Dictated by: SOLIS LEVIN MD This examination was interpreted and the report reviewed and electronically signed by: SOLIS LEVIN MD on Jul 16 2021 2:27PM EST Thank you for allowing us to participate in the care of your patient. Should there be any questions regarding this interpretation, please call [phone]. If you are unable to reach us at the number above, please feel free to contact [facility] at [phone]. DIVISION OF RADIOLOGY * * *Final Report* * * DATE OF EXAM: Jul 16 2021 1:38PM [facility] 0013 - CT NECK SOFT TISSUE W IVCON / PROCEDURE REASON: Malignant neoplasm of head, face and neck (HCC) * * * * Physician Interpretation * * * * RESULT: COMPARISONS: Outside CT examination from 04/06/2021. HISTORY: Advanced head and neck cancer. TECHNIQUE: CT neck with contrast. Contrast: IV 150 ml of Omnipaque 300 CT Radiation dose: Integrated Dose-length product (DLP) for this visit = 1008 mGy*cm CT Dose Reduction Employed: Automated exposure control (AEC) RESULT: NECK CT: Acute abnormality: None. Compared to prior exam surgical changes along right pharyngeal pillar from oropharynx inferiorly to hyoid bone with multiple metallic clips and loss of fat planes without enhancing soft tissue mass or discrete new soft tissue mass concerning for recurrent/residual tumor with loss of fat planes and mucosal edema likely related to radiation therapy along with platysmal thickening and stranding. However, close continued follow-up would be of value for characterization for recurrent/residual disease or PET scan may be of value. No pathological neck lymphadenopathy or new soft tissue mass. These changes are new compared to prior examination. Previously identified extensive lymphadenopathy has been completely resected on today's exam. Remaining 1 to 3 mm lymph nodes within the neck are normal by strict CT size criteria and do not warrant any further follow-up. No lytic or sclerotic osseous lesions to raise concern for metastasis but bone scan is more sensitive. Symmetrical and unremarkable intracranial structures, orbits, sinuses, mastoids, skull base, salivary/thyroid glands, superior mediastinum, bones, upper lungs, aerodigestive tract in the remaining portion, vessels and fat planes in the remaining portion without any additional soft tissue mass, loculated collections, abnormal enhancement or pathological neck lymphadenopathy. DIVISION OF RADIOLOGY Provider, [facility] - 07/16/2021 * * *Final Report* * * DATE OF EXAM: Jul 16 2021 1:38PM [facility] 0013 - CT NECK SOFT TISSUE W IVCON / PROCEDURE REASON: Malignant neoplasm of head, face and neck (HCC) * * * * Physician Interpretation * * * * RESULT: COMPARISONS: Outside CT examination from 04/06/2021. HISTORY: Advanced head and neck cancer. TECHNIQUE: CT neck with contrast. Contrast: IV 150 ml of Omnipaque 300 CT Radiation dose: Integrated Dose-length product (DLP) for this visit = 1008 mGy*cm CT Dose Reduction Employed: Automated exposure control (AEC) RESULT: NECK CT: Acute abnormality: None. Compared to prior exam surgical changes along right pharyngeal pillar from oropharynx inferiorly to hyoid bone with multiple metallic clips and loss of fat planes without enhancing soft tissue mass or discrete new soft tissue mass concerning for recurrent/residual tumor with loss of fat planes and mucosal edema likely related to radiation therapy along with platysmal thickening and stranding. However, close continued follow-up would be of value for characterization for recurrent/residual disease or PET scan may be of value. No pathological neck lymphadenopathy or new soft tissue mass. These changes are new compared to prior examination. Previously identified extensive lymphadenopathy has been completely resected on today's exam. Remaining 1 to 3 mm lymph nodes within the neck are normal by strict CT size criteria and do not warrant any further follow-up. No lytic or sclerotic osseous lesions to raise concern for metastasis but bone scan is more sensitive. Symmetrical and unremarkable intracranial structures, orbits, sinuses, mastoids, skull base, salivary/thyroid glands, superior mediastinum, bones, upper lungs, aerodigestive tract in the remaining portion, vessels and fat planes in the remaining portion without any additional soft tissue mass, loculated collections, abnormal enhancement or pathological neck lymphadenopathy. IMPRESSION IMPRESSION: 1. Interval neck lymph node dissection and surgical changes. 2. No discrete soft tissue mass or new abnormality identified. 3. Post intervention changes and close follow-up is warranted. Transcribe Date/Time: Jul 16 2021 2:19P Dictated by: SOLIS LEVIN MD This examination was interpreted and the report reviewed and electronically signed by: SOLIS LEVIN MD on Jul 16 2021 2:27PM EST Thank you for allowing us to participate in the care of your patient. Should there be any questions regarding this interpretation, please call [phone]. If you are unable to reach us at the number above, please feel free to contact [facility] at [phone]. [facility] No Panel Informationon 07-16 Radiology Study observation (narrative) Stephon loza [facility] CYTOLOGYon 03-10-2021 CYTOLOGY Specimen #: [id number]* Submitting Physician: JESICA DURAN MD SPECIMEN SUBMITTED A: SOFT TISSUE, RIGHT NECK, FINE NEEDLE ASPIRATION, 22 OUTSIDE SLIDES (C21-213), [place], [place], (01/05/2021) B: RIGHT NECK MASS LEVEL II, FINE NEEDLE ASPIRATION, 18 OUTSIDE SLIDES (C21-214), [place], (01/06/2021) _ FINAL DIAGNOSIS A. SOFT TISSUE, RIGHT NECK, FINE NEEDLE ASPIRATION, 22 OUTSIDE SLIDES (C21-213), [place], (01/05/2021): Suspicious for malignancy. B. RIGHT NECK MASS LEVEL II, FINE NEEDLE ASPIRATION, 18 OUTSIDE SLIDES (C21-214), [place], (01/06/2021): Positive for malignant cells. See comment. COMMENT These aspirates show similar features with clusters of squamoid/oncocytoid and mucinous cells in the background of abundant mucus and inflammation. The provided p16 stained smear slide shows reactivity in tumor cells. 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 Rich Grubbs M.D., PhD (Electronic Signature) _ SLIDE/BLOCK DESCRIPTION A: 22 Slides C21-213; Cell Block x2, Smears x15, IHC x5. B: 18 Slides C21-214; Cell Block x2, Smears x14, IHC x2. STAINS A: SOFT TISSUE, RIGHT NECK, FINE NEEDLE ASPIRATION, 22 OUTSIDE SLIDES (C21-213), [facility], [place], [place], (01/05/2021) OUTSIDE SLIDES RECEIVED x 22 B: RIGHT NECK MASS LEVEL II, FINE NEEDLE ASPIRATION, 18 OUTSIDE SLIDES (C21-214), [facility], [place], [place], (01/06/2021) OUTSIDE SLIDES RECEIVED x 18 Date of Report: 03/22/2021 Date of Procedure: 03/10/2021 Date of Receipt: 03/10/2021 Submitted by: JESICA DURAN MD Location: Diagnostic interpretation performed at [facility], [address] [place] [address]. CLIA Number: [id number] Normal [facility] Comment on above: Performed By: #### C #### See report for performing lab information. SURGICAL PATHOLOGYon 03-10- 021 SURGICAL PATHOLOGY ADDENDUM PRESENT Specimen #: [id number]* Submitting Physician: JESICA DURAN MD FINAL DIAGNOSIS Outside slides [id number], 01/29/2021, [facility], [facility] A. Right pharynx, transoral partial pharyngectomy: - No tumor present. B. Right lingual tonsil, excision (B): - No tumor present. C. Lymph nodes, right neck level 2B, dissection: - Fifteen lymph nodes, negative for carcinoma (0/15). D. Lymph nodes, right neck level 1B and 2A, dissection: - Mucoepidermoid carcinoma (up to 3.7 cm) in two of four lymph nodes (2/4) (see comment). - Negative for extranodal extension. E. Lymph nodes, right neck levels 3, 4, and 5, dissection: - Mucoepidermoid carcinoma (up to 2.0 cm) in three of thirty-four lymph nodes (3/34) (see comment). - Negative for extranodal extension. F. Left tonsil, tonsillectomy: - No tumor present. COMMENT This challenging case shows a cystic and glandular neoplasm involving a total of 5 lymph nodes, two from the right levels 1B/2A and three from the right level 3 ilya dissection specimens. Extra-ilya extension is not identified; although the capsule of some involved nodes show a pushing expansion, no desmoplasia secondary to extranodal extension is seen. Immunohistochemical stains received for review demonstrate strong CK7 staining in the glandular component with p63 staining in the epidermoid and intermediate component. A mucicarmine stain highlights intracellular and extracellular mucin. A p16 immunohistochemical stain shows strong patchy positive staining but RNA in situ hybridization studies are negative for high-risk Human Papillomavirus. 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 Overall, the tumor is cystic (greater than 25%) with a predominance of mucus cells, intermediate cells and occasional epidermoid cells. Some areas show a more solid growth pattern along with areas with some small infiltrative nests. Perineural invasion is not identified. Based on these features, the tumor is considered intermediate grade per the Brandwein grading scheme. The origin of this mucoepidermoid carcinoma is unclear. The tumor appears to be in lymph nodes in all sections and a primary is not identified in the submitted oropharynx specimens. While at least some of these lymph nodes represent metastatic tumor it is not obvious which if any are the primary tumor. Mucoepidermoid carcinomas arising within lymph nodes have been reported and therefore it is possible these include the primary lesion. Clinical and radiologic correlation is recommended to exclude the possibility of another primary site. I have reviewed this case in consultation with Dr. Ember Nava, Dr. Noe Lewis, and Dr. Vince Recio, who agree with the interpretation of mucoepidermoid carcinoma and the absence of extranodal extension. Laboratory Developed Test (LDT) Disclaimer: Positive and negative controls stain appropriately. Performance characteristics of immunohistochemical, immunofluorescent and chromogenic in-situ hybridization tests have been determined by [facility]'s [facility] Pathology and Laboratory Medicine [place] ([facility]) in a manner consistent with CLIA requirements. One or more of these tests have not been cleared or approved by the FDA. [facility] is regulated under CLIA as qualified to perform high-complexity testing. These tests are used for clinical purposes. They should not be regarded as investigational or for research. Rich Grubbs M.D., PhD (Electronic Signature) _ SPECIMEN SUBMITTED A: 100 SLIDES ([id number]; A-F) / 11 BLOCKS ([id number];D) ADDENDUM Date Ordered: 04/14/2021 Date Reported: 04/14/2021 HPV in situ hybridization for this case was performed at [facility] form the provided block. Addendum Pathologist: Rich Grubbs M.D., PhD Electronic Signature ADDITIONAL PROCEDURE(S) HEAD AND NECK NEXT GENERATION SEQUENCING Date Ordered: 03/12/2021 Date Reported: 03/22/2021 Procedure Results and Interpretation See Below (NOTE) Head and Neck Next Generation Sequencing Laboratory Accession Number: [id number] Case #: [id number] Block #: A1 ( D9) Sample Type: FFPET % Tumor: 90 Result: Positive Summary: The following gene fusion was detected in the submitted specimen: CRTC1 - MAML2. Details: The fusion product is between CRTC1 exon 1 ([id number]) and MAML2 exon 2 ([id number]). Methodology: The Head and Neck Tumor Fusion Analysis by Next Generation Sequencing is a laboratory d ([facility] content not included)... Normal [facility] Comment on above: Performed By: #### S #### See report for performing lab information. [facility] Surgical Pathology Depar tmenton 02-12-2021 [facility] Surgical Pathology Department Name [facility] Pathologist: JUWAN GARCIA MD Date of Procedure: 02/12/2021 Date Received: 02/12/2021 Date Reported 02/16/2021 Submitting Physician: NAY TRACY MD Location: [facility] Other External # FINAL DIAGNOSIS Consult case from the [facility] Department of Pathology C2 and C2- total 40 slides: 1. SOFT TISSUE, RIGHT NECK, FINE NEEDLE ASPIRATION (C2-, COLLECTED 01/05/21): - ATYPICAL SQAUMOUS CELLS IN A BACKGROUND OF MUCIN AND NUMEROUS MACROPHAGES, FINDINGS CONCERNING FOR METASTASIS FROM THE PATIENT'S KNOWN HISTORY OF MUCOEPIDERMOID CARCINOMA, SEE NOTE. . NOTE: Immunostains were attempted on the cell block but were not contributory due to insufficient cellularity. Immunostain of p16 performed on a smear show nuclear positivity. 2. RIGHT NECK MASS, LEVEL II, FINE NEEDLE ASPIRATION (C21-, COLLECTED 01/08/21): --MALIGNANT CELLS DERIVED FROM MUCOEPIDERMOID CARCINOMA, SEE NOTE. NOTE: Immunostain for p16, performed on a smear is positive.. Electronically Signed Out By JUWAN GARCIA MD/CLAUDIO By the signature on this report, the individual or group listed as making the Final Interpretation/Diagnos is certifies that they have reviewed this case. Clinical History: FNA right neck mass Specimens Submitted As: A: [facility] C21- (01/05/2021) B: [facility] C21-214 (01/06/2021) Slide/Block Description Received from [facility], Dept of Pathology, [address] [place] [address] [place] [address], are total of forty (40) slides, twenty-two (22) slides labeled C21-213 and eighteen (18) slides labeled S21-214. Keep Slides: N Slides Returned: N Personal Consult: N Normal [facility] Comment on above: Performed By: #### [facility] #### [facility] Surgical Pathology Department [address] [facility] [address] [facility] Surgical Pathology Depar orteganthugh 02-11-2021 [facility] Surgical Pathology Department Name [facility] Pathologist: SANDRA TEMPLE MD Date of Procedure: 02/11/2021 Date Received: 02/11/2021 Date Reported 02/12/2021 Submitting Physician: NAY TRACY MD Location: [facility] Other External # FINAL DIAGNOSIS [facility] [id number] (01/29/2021): RIGHT TRANSORAL PARTIAL PHARYNGECTOMY (A): -- SQUAMOUS MUCOSA, TONSILLAR TISSUE AND UNDERLYING SKELETAL MUSCLE NEGATIVE FOR TUMOR. RIGHT LINGUAL TONSIL, EXCISION (B): -- SQUAMOUS MUCOSA, TONSILLAR TISSUE AND UNDERLYING SKELETAL MUSCLE NEGATIVE FOR TUMOR. LYMPH NODE, RIGHT LEVEL 2B, DISSECTION (C): -- FIFTEEN (15) LYMPH NODES NEGATIVE FOR TUMOR. LYMPH NODE, RIGHT LEVEL 1B AND 2A, DISSECTION (D): -- METASTATIC MUCOEPIDERMOID CARCINOMA TO TWO (2) OF FOUR (4) LYMPH NODES. -- THE LARGEST METASTATIC DEPOSIT IS 3.7 CM. -- EXTRANODAL EXTENSION IS PRESENT (3 MM). LYMPH NODES, RIGHT LEVELS 3, 4 AND 5, DISSECTION (E): -- METASTATIC MUCOEPIDERMOID CARCINOMA TO THREE (3) OF THIRTY-FOUR (34) LYMPH NODES; SEE NOTE. -- THE LARGEST METASTATIC DEPOSIT IS 2.0 CM. -- EXTRANODAL EXTENSION IS PRESENT (<1 MM). NOTE: The lymph nodes with metastatic carcinoma are located in level 3. Mucicarmine stain performed at the referring institution and receive for review demonstrates the presence of intracytoplasmic mucin in tumor cells. Immunohistochemical stain performed at the referring institution and received for review demonstrate neoplastic cells to be positive for CK7, p63 and p16. LEFT TONSIL, TONSILLECTOMY (F): -- SQUAMOUS MUCOSA, TONSILLAR TISSUE AND UNDERLYING SKELETAL MUSCLE NEGATIVE FOR TUMOR. afn Electronically Signed Out By SANDRA TEMPLE MD/AFN By the signature on this report, the individual or group listed as making the Final Interpretation/Diagnos is certifies that they have reviewed this case. Clinical History: FNA positive SCC right neck Specimens Submitted As: A: [facility] [id number] (01/29/2021) Slide/Block Description Received from [facility], Dept of Pathology, [address] [place] [address], are one hundred and one slides (101) labeled [id number]. Keep Slides: N Slides Returned: N Personal Consult: N Normal [facility] Comment on above: Performed By: #### [facility] #### [facility] Surgical Pathology Department [address] [facility] [address] Glucose Glucometer (BldC) [M ass/Vol]on 01-07-2021 Glucose [Mass/Vol] 93 mg/dL [facility] Comment on above: Random Glucose Refer ence Range is dependent on time and content of last meal. Glucose of more than 200 mg/dL in a nonstressed, ambulatory subject supports the diagnosis of Diabetes Mellitus. Vital Signs Date Time Vital Sign Value Performing Clinician Facility 02-26-2025 14:17-0400 Body height 177.8 cm Khadar Arevalok DO Work Phone: [facility] 02-26-2025 14:17-0400 Body mass index (BMI) [Ratio] 33 kg/m2 Khadar Manuelcek DO Work Phone: [facility] 02-26-2025 14:17-0400 Body weight 104.33 kg Khadar Jacksoncek DO Work Phone: [facility] 01-08-2025 13:10-0400 Body height 177.8 cm Khadar Jacksoncek DO Work Phone: [facility] 01-08-2025 13:10-0400 Body mass index (BMI) [Ratio] 33 kg/m2 Khadar Manuelcek DO Work Phone: [facility] 01-08-2025 13:10-0400 Body weight 104.33 kg Khadar Jacksoncek DO Work Phone: [facility] 12-13-2024 14:31-0400 Body mass index (BMI) [Ratio] 33.01 kg/m2 Yosef Taylor MD Work Phone: [facility] 12-13-2024 14:31-0400 Body temperature 98.01 [degF] Yosef Taylor MD Work Phone: [facility] 12-13-2024 14:31-0400 Body weight 104.6 kg Yosef Taylor MD Work Phone: [facility] 12-13-2024 14:31-0400 Diastolic blood pressure 87 mm[Hg] Yosef Taylor MD Work Phone: [facility] 12-13-2024 14:31-0400 Heart rate 61 /min Yosef Taylor MD Work Phone: [facility] 12-13-2024 14:31-0400 Respiratory rate 16 /min Yosef Taylor MD Work Phone: [facility] 12-13-2024 14:31-0400 SaO2% (BldA) [Mass fraction] 98 % Yosef Taylor MD Work Phone: [facility] 12-13-2024 14:31-0400 Systolic blood pressure 123 mm[Hg] Yosef Taylor MD Work Phone: [facility] 11-29-2024 09:02-0400 Body height 180.34 cm [facility] 11-29-2024 09:02-0400 Body mass index (BMI) [Ratio] 32.1 kg/m2 [facility] 11-29-2024 09:02-0400 Body temperature 98.1 [degF] [facility] 11-29-2024 09:02-0400 Body weight 104.32 kg [facility] 11-29-2024 09:02-0400 Diastolic blood pressure 82 mm[Hg] [facility] 11-29-2024 09:02-0400 Heart rate 71 /min [facility] 11-29-2024 09:02-0400 SaO2% (BldA) [Mass fraction] 97 % [facility] 11-29-2024 09:02-0400 Systolic blood pressure 140 mm[Hg] [facility] 11-13-2024 13:16-0400 Body height 177.8 cm Khadar Jacksoncek DO Work Phone: [facility] 11-13-2024 13:16-0400 Body mass index (BMI) [Ratio] 33 kg/m2 Khadar Murcek DO Work Phone: [facility] 11-13-2024 13:16-0400 Body weight 104.33 kg Khadar Murcek DO Work Phone: [facility] 09-25-2024 14:13-0500 Body height 177.8 cm Khadar Murcek DO Work Phone: [facility] 09-25-2024 14:13-0500 Body mass index (BMI) [Ratio] 33 kg/m2 Khadar Murcek DO Work Phone: [facility] 09-25-2024 14:13-0500 Body weight 104.33 kg Khadar Jacksoncek DO Work Phone: [facility] 08-12-2024 14:39-0500 Body height 177.8 cm Khadar Jacksoncek DO Work Phone: [facility] 08-12-2024 14:39-0500 Body mass index (BMI) [Ratio] 33 kg/m2 Khadar Jacksoncek DO Work Phone: [facility] 08-12-2024 14:39-0500 Body weight 104.33 kg Khadar Jacksoncek DO Work Phone: [facility] 08-05-2024 13:58-0500 Body mass index (BMI) [Ratio] 32.48 kg/m2 Yosef Taylor MD Work Phone: [facility] 08-05-2024 13:58-0500 Body temperature 97.59 [degF] Yosef Taylor MD Work Phone: [facility] 08-05-2024 13:58-0500 Body weight 102.9 kg Yosef Taylor MD Work Phone: [facility] 08-05-2024 13:58-0500 Diastolic blood pressure 91 mm[Hg] Yosef Taylor MD Work Phone: [facility] 08-05-2024 13:58-0500 Heart rate 67 /min Yosef Taylor MD Work Phone: [facility] 08-05-2024 13:58-0500 Respiratory rate 16 /min Yosef Taylor MD Work Phone: [facility] 08-05-2024 13:58-0500 SaO2% (BldA) [Mass fraction] 98 % Yosef Taylor MD Work Phone: [facility] 08-05-2024 13:58-0500 Systolic blood pressure 136 mm[Hg] Yosef Taylor MD Work Phone: [facility] 07-01-2024 14:22-0500 Body height 177.8 cm Khadar Hill DO Work Phone: [facility] 07-01-2024 14:22-0500 Body mass index (BMI) [Ratio] 33 kg/m2 Khadar Hill DO Work Phone: [facility] 07-01-2024 14:22-0500 Body weight 104.33 kg Khadar Hill DO Work Phone: [facility] 06-21-2024 10:06-0500 Body mass index (BMI) [Ratio] 32.35 kg/m2 Yosef Taylor MD Work Phone: [facility] 06-21-2024 10:06-0500 Body temperature 97.11 [degF] Yosef Taylor MD Work Phone: [facility] 06-21-2024 10:06-0500 Body weight 102.5 kg Yosef Taylor MD Work Phone: [facility] 06-21-2024 10:06-0500 Diastolic blood pressure 88 mm[Hg] Yosef Taylor MD Work Phone: [facility] 06-21-2024 10:06-0500 Heart rate 76 /min Yosef Taylor MD Work Phone: [facility] 06-21-2024 10:06-0500 Respiratory rate 16 /min Yosef Taylor MD Work Phone: [facility] 06-21-2024 10:06-0500 SaO2% (BldA) [Mass fraction] 97 % Yosef Taylor MD Work Phone: [facility] 06-21-2024 10:06-0500 Systolic blood pressure 131 mm[Hg] Yosef Taylor MD Work Phone: [facility] 05-27-2024 14:10-0400 Body height 177.8 cm Khadar Hill DO Work Phone: [facility] 05-27-2024 14:10-0400 Body mass index (BMI) [Ratio] 33 kg/m2 Khadar Hill DO Work Phone: [facility] 05-27-2024 14:10-0400 Body weight 104.33 kg Khadar Hill DO Work Phone: [facility] 05-22-2024 15:56-0400 Body mass index (BMI) [Ratio] 32.7 kg/m2 Yosef Taylor MD Work Phone: [facility] 05-22-2024 15:56-0400 Body temperature 98.29 [degF] Yosef Taylor MD Work Phone: [facility] 05-22-2024 15:56-0400 Body weight 103.6 kg Yosef Taylor MD Work Phone: [facility] 05-22-2024 15:56-0400 Diastolic blood pressure 91 mm[Hg] Yosef Taylor MD Work Phone: [facility] 05-22-2024 15:56-0400 Heart rate 66 /min Yosef Taylor MD Work Phone: [facility] 05-22-2024 15:56-0400 Respiratory rate 16 /min Yosef Taylor MD Work Phone: [facility] 05-22-2024 15:56-0400 SaO2% (BldA) [Mass fraction] 97 % Yosef Taylor MD Work Phone: [facility] 05-22-2024 15:56-0400 Systolic blood pressure 145 mm[Hg] Yosef Taylor MD Work Phone: [facility] 05-15-2024 16:02-0400 Body mass index (BMI) [Ratio] 32.73 kg/m2 Yosef Taylor MD Work Phone: [facility] 05-15-2024 16:02-0400 Body temperature 64 [degF] Yosef Taylor MD Work Phone: [facility] 05-15-2024 16:02-0400 Body weight 103.7 kg Yosef Taylor MD Work Phone: [facility] 05-15-2024 16:02-0400 Diastolic blood pressure 90 mm[Hg] Yosef Taylor MD Work Phone: [facility] 05-15-2024 16:02-0400 Respiratory rate 16 /min Yosef Taylor MD Work Phone: [facility] 05-15-2024 16:02-0400 SaO2% (BldA) [Mass fraction] 97 % Yosef Taylor MD Work Phone: [facility] 05-15-2024 16:02-0400 Systolic blood pressure 135 mm[Hg] Yosef Taylor MD Work Phone: [facility] 05-08-2024 16:06-0400 Body mass index (BMI) [Ratio] 32.76 kg/m2 Yosef Taylor MD Work Phone: [facility] 05-08-2024 16:06-0400 Body temperature 97.39 [degF] Yosef Taylor MD Work Phone: [facility] 05-08-2024 16:06-0400 Body weight 103.8 kg Yosef Taylor MD Work Phone: [facility] 05-08-2024 16:06-0400 Diastolic blood pressure 90 mm[Hg] Yosef Taylor MD Work Phone: [facility] 05-08-2024 16:06-0400 Heart rate 64 /min Yosef Taylor MD Work Phone: [facility] 05-08-2024 16:06-0400 Respiratory rate 18 /min Yosef Taylor MD Work Phone: [facility] 05-08-2024 16:06-0400 SaO2% (BldA) [Mass fraction] 98 % Yosef Taylor MD Work Phone: [facility] 05-08-2024 16:06-0400 Systolic blood pressure 145 mm[Hg] Yosef Taylor MD Work Phone: [facility] 05-01-2024 15:40-0400 Body mass index (BMI) [Ratio] 32.63 kg/m2 Yosef Taylor MD Work Phone: [facility] 05-01-2024 15:40-0400 Body temperature 96.91 [degF] Yosef Taylor MD Work Phone: [facility] 05-01-2024 15:40-0400 Body weight 103.4 kg Yosef Taylor MD Work Phone: [facility] 05-01-2024 15:40-0400 Diastolic blood pressure 92 mm[Hg] Yosef Taylor MD Work Phone: [facility] 05-01-2024 15:40-0400 Heart rate 60 /min Yosef Taylor MD Work Phone: [facility] 05-01-2024 15:40-0400 Respiratory rate 16 /min Yosef Taylor MD Work Phone: [facility] 05-01-2024 15:40-0400 SaO2% (BldA) [Mass fraction] 99 % Yosef Taylor MD Work Phone: [facility] 05-01-2024 15:40-0400 Systolic blood pressure 143 mm[Hg] Yosef Taylor MD Work Phone: [facility] 04-24-2024 15:49-0400 Body mass index (BMI) [Ratio] 33.04 kg/m2 Yosef Taylor MD Work Phone: [facility] 04-24-2024 15:49-0400 Body temperature 97.39 [degF] Yosef Taylor MD Work Phone: [facility] 04-24-2024 15:49-0400 Body weight 104.7 kg Yosef Taylor MD Work Phone: [facility] 04-24-2024 15:49-0400 Diastolic blood pressure 101 mm[Hg] Yosef Taylor MD Work Phone: [facility] 04-24-2024 15:49-0400 Heart rate 68 /min Yosef Taylor MD Work Phone: [facility] 04-24-2024 15:49-0400 Respiratory rate 18 /min Yosef Taylor MD Work Phone: [facility] 04-24-2024 15:49-0400 SaO2% (BldA) [Mass fraction] 97 % Yosef Taylor MD Work Phone: [facility] 04-24-2024 15:49-0400 Systolic blood pressure 166 mm[Hg] Yosef Taylor MD Work Phone: [facility] 04-22-2024 14:15-0400 Body height 177.8 cm Khadar Hill DO Work Phone: [facility] 04-22-2024 14:15-0400 Body mass index (BMI) [Ratio] 33.72 kg/m2 Khadar Hill DO Work Phone: [facility] 04-22-2024 14:15-0400 Body weight 106.59 kg Khadar Hill DO Work Phone: [facility] 04-11-2024 15:12-0400 Body mass index (BMI) [Ratio] 33.39 kg/m2 Yosef Taylor MD Work Phone: [facility] 04-11-2024 15:12-0400 Body weight 105.8 kg Yosef Taylor MD Work Phone: [facility] 04-11-2024 15:12-0400 Respiratory rate 18 /min Yosef Taylor MD Work Phone: [facility] 03-25-2024 14:57-0400 Body height 178 cm Jose Ortiz MD Work Phone: [facility] 03-25-2024 14:57-0400 Body mass index (BMI) [Ratio] 33.36 kg/m2 Jose Ortiz MD Work Phone: [facility] 03-25-2024 14:57-0400 Body temperature 97.7 [degF] Jose Ortiz MD Work Phone: [facility] 03-25-2024 14:57-0400 Body weight 105.7 kg Jose Ortiz MD Work Phone: [facility] 03-25-2024 14:57-0400 Diastolic blood pressure 87 mm[Hg] Jose Ortiz MD Work Phone: [facility] 03-25-2024 14:57-0400 Heart rate 74 /min Jose Ortiz MD Work Phone: [facility] 03-25-2024 14:57-0400 Respiratory rate 18 /min Jose Ortiz MD Work Phone: [facility] 03-25-2024 14:57-0400 SaO2% (BldA) [Mass fraction] 99 % Jose Ortiz MD Work Phone: [facility] Comment on above: RA 03-25-2024 14:57-0400 Systolic blood pressure 140 mm[Hg] Jose Ortiz MD Work Phone: [facility] 03-18-2024 08:58-0400 Body mass index (BMI) [Ratio] 33.53 kg/m2 Matt Monreal MD Work Phone: [facility] 03-18-2024 08:58-0400 Body temperature 97.9 [degF] Matt Monreal MD Work Phone: [facility] 03-18-2024 08:58-0400 Body weight 106 kg Matt Monreal MD Work Phone: [facility] 03-18-2024 08:58-0400 Diastolic blood pressure 84 mm[Hg] Matt Monreal MD Work Phone: [facility] 03-18-2024 08:58-0400 Heart rate 66 /min Matt Monreal MD Work Phone: [facility] 03-18-2024 08:58-0400 Respiratory rate 18 /min Matt Monreal MD Work Phone: [facility] 03-18-2024 08:58-0400 SaO2% (BldA) [Mass fraction] 98 % Matt Monreal MD Work Phone: [facility] Comment on above: RA 03-18-2024 08:58-0400 Systolic blood pressure 144 mm[Hg] Matt Monreal MD Work Phone: [facility] 02-24-2024 08:00-0400 Body temperature 97.8 [degF] MD Tristian Pacheco Work Phone: [facility] 02-24-2024 08:00-0400 Diastolic blood pressure 76 mm[Hg] MD Tristian Pacheco Work Phone: [facility] 02-24-2024 08:00-0400 Heart rate 73 /min MD Tristian Pacheco Work Phone: [facility] 02-24-2024 08:00-0400 SaO2% (BldA) [Mass fraction] 98 % MD Tristian Pacheco Work Phone: [facility] 02-24-2024 08:00-0400 Systolic blood pressure 137 mm[Hg] MD Tristian Pacheco Work Phone: [facility] 02-24-2024 06:00-0400 Body weight 112.8 kg MD Tristian Pacheco Work Phone: [facility] 02-23-2024 19:59-0400 Respiratory rate 12 /min MD Tristian Pacheco Work Phone: [facility] 02-23-2024 10:53-0400 Inhaled oxygen flow rate 10 L/min MD Tristian Pacheco Work Phone: [facility] 02-23-2024 07:47-0400 Body height 180.34 cm MD Tristian Pacheco Work Phone: [facility] 02-23-2024 07:47-0400 Body mass index (BMI) [Ratio] 34.1 kg/m2 MD Tristian Pacheco Work Phone: [facility] 11-24-2022 10:06-0400 Body temperature 96.69 [degF] Yosef Taylor MD Work Phone: [facility] 11-24-2022 10:06-0400 Body weight 108.86 kg Yosef Taylor MD Work Phone: [facility] 11-24-2022 10:06-0400 Diastolic blood pressure 98 mm[Hg] Yosef Taylor MD Work Phone: [facility] 11-24-2022 10:06-0400 Heart rate 66 /min Yosef Taylor MD Work Phone: [facility] 11-24-2022 10:06-0400 Respiratory rate 16 /min Yosef Taylor MD Work Phone: [facility] 11-24-2022 10:06-0400 SaO2% (BldA) [Mass fraction] 95 % Yosef Taylor MD Work Phone: [facility] 11-24-2022 10:06-0400 Systolic blood pressure 142 mm[Hg] Yosef Taylor MD Work Phone: [facility] 05-16-2022 10:02-0400 Body temperature 97.7 [degF] Yosef Taylor MD Work Phone: [facility] 05-16-2022 10:02-0400 Body weight 107.32 kg Yosef Taylor MD Work Phone: [facility] 05-16-2022 10:02-0400 Diastolic blood pressure 83 mm[Hg] Yosef Taylor MD Work Phone: [facility] 05-16-2022 10:02-0400 Heart rate 69 /min Yosef Taylor MD Work Phone: [facility] 05-16-2022 10:02-0400 Respiratory rate 16 /min Yosef Taylor MD Work Phone: [facility] 05-16-2022 10:02-0400 SaO2% (BldA) [Mass fraction] 98 % Yosef Taylor MD Work Phone: [facility] 05-16-2022 10:02-0400 Systolic blood pressure 143 mm[Hg] Yosef Taylor MD Work Phone: [facility] 10-22-2021 14:17-0500 Body temperature 98.1 [degF] Yosef Taylor MD Work Phone: [facility] 10-22-2021 14:17-0500 Body weight 108.86 kg Yosef Taylor MD Work Phone: [facility] 10-22-2021 14:17-0500 Diastolic blood pressure 92 mm[Hg] Yosef Taylor MD Work Phone: [facility] 10-22-2021 14:17-0500 Heart rate 69 /min Yosef Taylor MD Work Phone: [facility] 10-22-2021 14:17-0500 Respiratory rate 16 /min Yosef Taylor MD Work Phone: [facility] 10-22-2021 14:17-0500 SaO2% (BldA) [Mass fraction] 95 % Yosfe Taylor MD Work Phone: [facility] 10-22-2021 14:17-0500 Systolic blood pressure 135 mm[Hg] Yosef Taylor MD Work Phone: [facility] Encounters Encounter Date Encounter Type Care Provider Facility Start: 02-26-2025 End: 02-26-2025 Bamboo flowsheet Khadar Hill DO Work Phone: [facility] Start: 02-26-2025 End: 02-26-2025 Bamboo flowsheet Khadar Hill DO Work Phone: [facility] Start: 02-26-2025 End: 02-26-2025 Office outpatient visit 25 minutes Khadar Hill DO Work Phone: [facility] Comment on above: Salivary gland cance r (HCC) (Primary Dx); History of neck dissection Start: 02-26-2025 End: 02-26-2025 ambulatory KHADAR HILL Not Available Start: 01-08-2025 End: 01-08-2025 Bamboo flowsheet Khadar Hill DO Work Phone: [facility] Start: 01-08-2025 End: 01-08-2025 Bamboo flowsheet Khadar Hill DO Work Phone: [facility] Start: 01-08-2025 End: 01-08-2025 Office outpatient visit 25 minutes Khadar Hill DO Work Phone: [facility] Comment on above: 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/HCC) (Primary Dx); 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, face, or neck with unknown primary site (CMS/HCC); History of neck dissection Start: 01-08-2025 End: 01-08-2025 ambulatory KHADAR HILL Not Available Start: 12-13-2024 End: 12-13-2024 Patient encounter procedure Yosef Taylor MD Work Phone: Radiation Oncology Comment on above: 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) Start: 12-13-2024 End: 12-13-2024 ambulatory YOSEF TAYLOR Facility:[facility] Start: 12-05-2024 ambulatory YOSEF TAYLOR Facility:[facility] [place] Start: 11-29-2024 End: 11-29-2024 ambulatory [facility] Work Phone: Start: 11-29-2024 End: 11-29-2024 Patient encounter procedure [facility] Work Phone: Start: 11-13-2024 End: 11-13-2024 ambulatory KHADAR HILL Not Available Start: 11-13-2024 End: 11-13-2024 Office outpatient visit 25 minutes Khadar Hassan Manuelsabi DO Work Phone: [facility] Comment on above: 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/HCC) (Primary Dx); 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, face, or neck with unknown primary site (CMS/HCC) Start: 09-25-2024 End: 09-25-2024 Office outpatient visit 25 minutes Khadar Sonya Manuelsabi DO Work Phone: [facility] Comment on above: Encounter for follow -up surveillance of salivary gland cancer (Primary Dx); 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/HCC); History of neck dissection Start: 09-25-2024 End: 09-25-2024 ambulatory KHADAR HILL Not Available Start: 08-21-2024 End: 08-21-2024 ambulatory Komal Mendoza OTR/L Work Phone: Occupational Therapy Comment on above: Lymphedema (Primary Dx); Malignant neoplasm of salivary gland (HCC) Start: 08-12-2024 End: 08-12-2024 Office outpatient visit 25 minutes Khadar Sonya Manuelsabi DO Work Phone: [facility] Comment on above: 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/HCC) (Primary Dx); Salivary gland cancer (CMS/HCC) Start: 08-12-2024 End: 08-12-2024 ambulatory KHADAR HILL Not Available Start: 08-12-2024 End: 08-12-2024 Bamboo flowsheet Khadar Sonya Manuelsabi DO Work Phone: [facility] Start: 08-12-2024 End: 08-12-2024 Bamboo flowsheet Khadar Jacksonsabi DO Work Phone: [facility] Start: 08-06-2024 End: 08-06-2024 Telephone encounter Yosef Taylor MD Work Phone: Radiation Oncology Comment on above: Results Start: 08-05-2024 End: 08-05-2024 ambulatory YOSEF TAYLOR Facility:[facility] Start: 08-05-2024 End: 08-05-2024 Patient encounter procedure Yosef Taylor MD Work Phone: Radiation Oncology Comment on above: 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) Start: 07-29-2024 End: 07-29-2024 ambulatory YOSEF CLAUDIA Facility:[facility] Start: 07-29-2024 End: 07-29-2024 Subsequent hospital visit by physician Arrival Time Radiology Work Phone: Radiology [facility] Comment on above: 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) [C08.9] Start: 07-25-2024 End: 07-25-2024 Telephone encounter Neha Hines APRN.CNP Work Phone: Otolarynogology Comment on above: Orders Start: 07-17-2024 End: 07-17-2024 ambulatory Komal Lipaj OTR/L Work Phone: Occupational Therapy Comment on above: Lymphedema (Primary Dx); Malignant neoplasm of salivary gland (HCC) Start: 07-10-2024 End: 07-10-2024 ambulatory Komal Lipaj OTR/L Work Phone: Occupational Therapy Comment on above: Lymphedema (Primary Dx); Malignant neoplasm of salivary gland (HCC) Start: 07-04-2024 End: 07-05-2024 Telephone encounter Yosef Taylor MD Work Phone: Hematology/Oncology Comment on above: Orders Start: 07-03-2024 End: 07-03-2024 ambulatory Komal Lipaj OTR/L Work Phone: Occupational Therapy Comment on above: Lymphedema (Primary Dx) Start: 07-02-2024 End: 07-04-2024 ambulatory Yosef Taylor MD Work Phone: Radiation Oncology Comment on above: Night sweats Start: 07-01-2024 End: 07-01-2024 Office outpatient visit 25 minutes Khadar Hassan Liz DO Work Phone: [facility] Comment on above: Salivary gland cance r (CMS/HCC) (Primary Dx); 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/HCC) Start: 07-01-2024 End: 07-01-2024 ambulatory KHADAR HILL Not Available Start: 07-01-2024 End: 07-01-2024 Bamboo flowsheet Khadar Hassan Irinasissy DO Work Phone: [facility] Start: 07-01-2024 End: 07-01-2024 Bamboo flowsheet Khadar Hill DO Work Phone: [facility] Start: 06-26-2024 End: 06-26-2024 ambulatory Komal Mendoza OTR/L Work Phone: Occupational Therapy Comment on above: Lymphedema (Primary Dx); Malignant neoplasm of salivary gland (HCC) Start: 06-21-2024 End: 06-21-2024 ambulatory YOSEF TAYLOR Facility:[facility] Start: 06-21-2024 End: 06-21-2024 Patient encounter procedure Yosef Taylor MD Work Phone: Radiation Oncology Comment on above: 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); Malignant neoplasm of parotid gland (HCC) Start: 06-04-2024 End: 06-04-2024 Telephone encounter Yosef Taylor MD Work Phone: Radiation Oncology Comment on above: Patient Update (Nurs e Call post radiation) Start: 05-27-2024 End: 05-27-2024 Postop follow up visit related to original px Khadar Hill DO Work Phone: [facility] Comment on above: 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/HCC) (Primary Dx); Salivary gland cancer (CMS/HCC) Start: 05-27-2024 End: 05-27-2024 ambulatory KHADAR HILL Not Available Start: 05-27-2024 End: 05-27-2024 Bamboo flowsheet Khadar Hill DO Work Phone: [facility] Start: 05-27-2024 End: 05-27-2024 Bamboo flowsheet Khadar Hill DO Work Phone: [facility] Start: 05-23-2024 End: 06-14-2024 Patient encounter procedure Yosef Taylor MD Work Phone: Radiation Oncology Start: 05-23-2024 End: 06-14-2024 Radiation Oncology Note Yosef Taylor MD Work Phone: Radiation Oncology Comment on above: Completion Note Start: 05-23-2024 End: 05-23-2024 amb[address] 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 Facility:[facility] Start: 05-21-2024 End: 05-21-2024 ambulatory [facility] Facility:[facility] Start: 05-20-2024 End: 05-20-2024 ambulatory [facility] Facility:[facility] Start: 05-17-2024 End: 05-17-2024 ambulatory [facility] Facility:[facility] Start: 05-16-2024 End: 05-16-2024 ambulatory 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 Facility:[facility] Start: 05-14-2024 End: 05-14-2024 ambulatory YOSEF CLAUDIA Facility:[facility] Start: 05-13-2024 End: 05-13-2024 ambulatory [facility] Facility:[facility] Start: 05-10-2024 End: 05-10-2024 ambulatory YOSEF CLAUDIA Facility:[facility] Start: 05-09-2024 End: 05-09-2024 ambulatory 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 Facility:[facility] Start: 05-06-2024 End: 05-06-2024 ambulatory 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 Facility:[facility] Start: 04-26-2024 End: 04-26-2024 ambulatory 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 Facility:[facility] Start: 04-23-2024 End: 04-23-2024 [facility] Facility:[facility] Start: 04-22-2024 End: 04-22-2024 [facility] Facility:[facility] Start: 04-22-2024 End: 04-22-2024 Postop follow up visit related to original px Khadar Hill DO Work Phone: [facility] Comment on above: 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/HCC) (Primary Dx); History of neck dissection Start: 04-22-2024 End: 04-22-2024 ambulatory KHADAR HILL Not Available Start: 04-22-2024 End: 04-22-2024 Bamboo flowsheet Khadar Hill DO Work Phone: [facility] Start: 04-22-2024 End: 04-22-2024 Bamboo flowsheet Khadar Hill DO Work Phone: [facility] Start: 04-19-2024 End: 04-19-2024 ambulatory [facility] Facility:[facility] Start: 04-18-2024 End: 04-18-2024 ambulatory [facility] Facility:[facility] Start: 04-17-2024 End: 04-17-2024 [facility] Facility:[facility] Start: 04-16-2024 End: 04-16-2024 ambulatory Komal Mendoza OTR/L Work Phone: Occupational Therapy Comment on above: Lymphedema (Primary Dx); Malignant neoplasm of salivary gland (HCC) Start: 04-12-2024 End: 04-12-2024 [facility] Start: 04-11-2024 End: 04-11-2024 Patient encounter procedure Yosef Taylor MD Work Phone: Radiation Oncology Comment on above: 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) Start: 04-11-2024 End: 04-11-2024 [facility] Start: 03-28-2024 End: 03-28-2024 ambulatory Kathleen Alvarezwal OTR/L Work Phone: [facility] Start: 03-28-2024 End: 03-28-2024 Patient encounter procedure Kathleen Alvarezwal OTR/L Work Phone: [facility] Occupational Therapy Comment on above: Lymphedema (Primary Dx); Malignant neoplasm of salivary gland (HCC) Start: 03-25-2024 End: 03-25-2024 ambulatory JOSE ORTIZ Facility:[facility] Start: 03-25-2024 End: 03-25-2024 Office outpatient visit 40 minutes Jose Ortiz MD Work Phone: Hematology/Oncology Comment on above: Malignant neoplasm o f parotid gland (HCC) Start: 03-21-2024 Patient encounter procedure [facility] Start: 03-20-2024 End: 03-21-2024 [facility] Start: 03-20-2024 End: 03-20-2024 Subsequent hospital visit by physician Yosef Taylor MD Work Phone: Radiology [facility] Start: 03-20-2024 End: 03-21-2024 Patient encounter procedure Yosef Taylor MD Work Phone: Radiation Oncology Comment on above: 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) Start: 03-20-2024 Radiation Oncology Note Yosef villalobos MD Work Phone: Radiation Oncology Comment on above: Simulation Note Start: 03-19-2024 End: 03-19-2024 ambulatory KHADAR HILL Not Available Start: 03-18-2024 End: 03-18-2024 ambulatory MATT MONREAL Facility:[facility] Start: 03-18-2024 End: 03-18-2024 Patient encounter procedure Matt Monreal MD Work Phone: Radiation Oncology Comment on above: 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); Malignant neoplasm of parotid gland (HCC) Start: 03-04-2024 End: 03-04-2024 ambulatory KHADAR Sonya LIZ Not Available Start: 03-04-2024 Telephone encounter Yosef Taylor MD Work Phone: Radiation Oncology Comment on above: Orders; Patient Upda te; Future Appointment Start: 02-23-2024 End: 02-24-2024 Evaluation and management of inpatient MD Tristian Pacheco Work Phone: [facility] Work Phone: Start: 02-09-2024 End: 02-09-2024 Departed Referred MD Tristian Pacheco Work Phone: [id number] Work Phone: Start: 02-09-2024 End: 02-09-2024 ambulatory Khadar Hill Facility:[facility] Start: 01-15-2024 End: 01-15-2024 Patient encounter procedure MD Tristian Pacheco Work Phone: [facility]-Pet Scan Work Phone: Start: 01-15-2024 End: 01-15-2024 ambulatory MD Tristian Pacheco Work Phone: [facility] Work Phone: Start: 01-10-2024 End: 01-10-2024 ambulatory Tristian Pacheco [facility] Work Phone: Start: 01-10-2024 End: 01-10-2024 Departed Referred DO Khadar Hill Work Phone: [facility] [place] Work Phone: Start: 09-18-2023 End: 09-18-2023 ambulatory Tristian Pacheco Other [employer] Other Start: 09-18-2023 Telephone encounter Tristian Pacheco [facility] Start: 11-24-2022 End: 11-24-2022 Patient encounter procedure Yosef Talyor MD Work Phone: Radiation Oncology Comment on above: Malignant neoplasm o f parotid gland (HCC) (Primary Dx) Start: 05-25-2022 Telephone encounter Yosef Taylor MD Work Phone: Radiation Oncology Comment on above: Future Appointment Start: 05-16-2022 End: 05-16-2022 Patient encounter procedure Yosef Taylor MD Work Phone: Radiation Oncology Comment on above: Malignant neoplasm o f parotid gland (HCC) (Primary Dx) Start: 05-11-2022 End: 05-11-2022 Subsequent hospital visit by physician Arrival Time Radiology Work Phone: Radiology Pet CT Comment on above: Malignant neoplasm o f parotid gland (HCC) [C07] Start: 04-25-2022 Telephone encounter Yosef Taylor MD Work Phone: Radiation Oncology Comment on above: Appointment; Patient Question Start: 10-27-2021 End: 10-27-2021 ambulatory PRASHANT HASSAN Facility:[facility] Start: 10-22-2021 End: 10-22-2021 Patient encounter procedure Yosef Taylor MD Work Phone: Radiation Oncology Comment on above: Malignant neoplasm o f head, face and neck (HCC); Malignant neoplasm of parotid gland (HCC) Start: 10-12-2021 End: 10-12-2021 Subsequent hospital visit by physician Arrival Time Radiology Work Phone: Radiology Pet CT Comment on above: 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] Start: 07-16-2021 End: 07-16-2021 Subsequent hospital visit by physician Arrival Time Radiology Work Phone: Radiology Pet CT Comment on above: Malignant neoplasm o f head, face and neck (HCC) [C76.0] Start: 01-22-2021 End: 01-22-2021 Patient encounter procedure Tristian Pacheco Work Phone: -Pre-Surgical Testing Start: 01-07-2021 End: 01-07-2021 Patient encounter procedure Tristian Pacheco Work Phone: -Pet Scan Start: 01-06-2021 End: 01-06-2021 Departed Referred Tristian Pacheco Work Phone: -Lab Main [place] Start: 01-05-2021 End: 01-05-2021 Departed Referred Tristian Pacheco Work Phone: -[facility] [place] Procedures Date Procedure Procedure Detail Performing Clinician Start: 08-05-2024 Assay of thyroid stimulating hormone tsh Yosef Taylor MD Work Phone: Start: 07-29-2024 Ct soft tissue neck w/contrast material Yosef Taylor MD Work Phone: Start: 07-29-2024 Ct thorax w/contrast material Yosef Taylor MD Work Phone: Start: 02-23-2024 Selective neck dissection of cervical lymph nodes MD Tristian Pacheco Work Phone: Start: 02-23-2024 Direct laryngoscopy with biopsy MD Tristian Pacheco Work Phone: Start: 01-15-2024 Positron emission tomography with computed tomography MD Tristian Pacheco Work Phone: Start: 12-18-2023 H/O: surgery Status post ra dical dissection of neck Khadar Hill DO Work Phone: Start: 05-11-2022 Ct soft tissue neck w/contrast material Yosef Taylor MD Work Phone: Start: 05-11-2022 Ct thorax w/contrast material Yosef Taylor MD Work Phone: Start: 10-22-2021 Adult depression screening assessment Yosef Taylor MD Work Phone: Start: 10-12-2021 Ct thorax w/contrast material Yosef Taylor MD Work Phone: Start: 10-12-2021 Ct soft tissue neck w/contrast material Yosef Taylor MD Work Phone: Start: 07-16-2021 Ct soft tissue neck w/contrast material Yosef Taylor MD Work Phone: Start: 07-16-2021 Ct thorax w/contrast material Yosef Taylor MD Work Phone: Start: 01-07-2021 Positron emission tomography with computed tomography Tristian Pacheco Work Phone: Start: 07-10-2018 General examination of patient Tristian Pacheco Other H/O: surgery Status post radi nisha dissection of neck Comment on above: Problem List clean-u p per request of Phys. EHR Cmte H/O: surgery History of neck dissection Khadar Hill DO Work Phone: H/O: surgery History of neck dissection Khadar Hill DO Work Phone: H/O: surgery History of neck dissection Khadar Hill DO Work Phone: H/O: surgery History of neck dissection Khadar Hill DO Work Phone: Plan of Treatment Date Care Activity Detail Author Start: 10-28-2031 Urine microalbumin profile DTaP,Tdap,Td Vaccine (2 - Tdap) [facility] Start: 02-23-2027 Diabetes Screening Diabetes Screenin g [facility] Start: 10-10-2026 Screening for malign ant neoplasm of colon [facility] Start: 06-04-2025 End: 06-04-2025 Patient encounter procedure 06/04/2025 2:15 PM EDT Office Visit [facility] [place] [address] [place] [phone] Khadar Hill DO [address] [place] [address] [facility] Start: 05-28-2025 End: 01-12-2026 CT Chest W contrast IV CT CHEST W IVCON Radiology Routine Malignant neoplasm of salivary gland (HCC) Expected: 05/28/2025, Expires: 01/12/2026 [facility] Work Phone: Comment on above: Expected: 05/28/2025 , Expires: 01/12/2026 Start: 05-28-2025 End: 01-12-2026 CT Neck W contrast IV CT NECK SOFT TISSUE W IVCON Radiology Routine Malignant neoplasm of salivary gland (HCC) Expected: 05/28/2025, Expires: 01/12/2026 [facility] Comment on above: Expected: 05/28/2025 , Expires: 01/12/2026 Start: 05-23-2025 End: 05-23-2025 Patient encounter procedure 05/23/2025 11:00 AM EDT Office Visit Radiation Oncology [address] [place] [address] Yosef Taylor MD [address] [place] [address] CT chest and neck Radiation Oncology Comment on above: CT chest and neck Start: 05-16-2025 End: 05-16-2025 Patient encounter procedure 05/16/2025 7:45 AM EDT Appointment Radiology [facility] [address] [place] [address] CT chest and neck Radiology Pet CT Comment on above: CT chest and neck Start: 04-14-2025 Influenza vaccination [facility] Start: 02-19-2025 End: 02-19-2025 Patient encounter procedure 02/19/2025 1:30 PM EDT Office Visit [facility] [place] [address] [place] [phone] Khadar Hill W, DO [address] [place] [address] PRUDENCIOLinda ZAMORAUSKY Start: 01-08-2025 End: 01-08-2025 Patient encounter procedure TRUPTI ZAMORAUSKY Comment on above: Arrived Start: 12-12-2024 End: 12-12-2024 Patient encounter procedure 12/12/2024 10:00 AM EDT Office Visit Radiation Oncology [address] [place] [address] Yosef Taylor MD [address] [place] [address] Radiation Oncology Comment on above: Follow up after CT Start: 12-05-2024 End: 12-05-2024 Patient encounter procedure 12/05/2024 8:45 AM EDT Appointment Radiology [facility] CT [address] [place] [address] 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] Radiology [facility] CT Comment on above: 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) [C08.9] Start: 11-13-2024 End: 11-13-2024 Patient encounter procedure 11/13/2024 1:15 PM EDT Office Visit TRUPTI ZAMORAUSKY [address] [place] [phone] Khadar Hill, DO [address] [place] [address] [facility] [place] Start: 09-25-2024 End: 09-25-2024 Patient encounter procedure 09/25/2024 2:15 PM EST Office Visit TRUPTI [facility] GUERDA [address] [place] [phone] Khadar Hill, DO [address] [place] [address] [facility] Start: 08-21-2024 End: 08-21-2024 ambulatory 08/21/2024 10:00 AM EST OT/PT/Speech Visit Occupational Therapy [address] [place] [address] Komal Mendoza, OTR/L [address] [place] [address] Lymphedema Occupational Therapy Comment on above: Lymphedema Start: 08-12-2024 End: 08-12-2024 Patient encounter procedure [facility] [place] Comment on above: Arrived Start: 08-05-2024 End: 08-05-2024 Patient encounter procedure Radiation Oncology Comment on above: follow up Start: 08-02-2024 End: 07-21-2025 CT Chest W contrast IV CT CHEST W IVCON Radiology Routine 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) Expected: 08/02/2024, Expires: 07/21/2025 [facility] Work Phone: Comment on above: Expected: 08/02/2024 , Expires: 07/21/2025 Start: 08-02-2024 End: 07-21-2025 CT Neck W contrast IV CT NECK SOFT TISSUE W IVCON Radiology Routine 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) Expected: 08/02/2024, Expires: 07/21/2025 [facility] Comment on above: Expected: 08/02/2024 , Expires: 07/21/2025 Start: 07-29-2024 End: 07-29-2024 Patient encounter procedure 07/29/2024 9:15 AM EST Appointment Radiology Pet CT [address] [place] [address] [place] [address] CT Neck and Chest w/IVC Radiology Pet CT Comment on above: CT Neck and Chest w/ IVC Start: 07-17-2024 End: 07-17-2024 ambulatory 07/17/2024 11:00 AM EST OT/PT/Speech Visit Occupational Therapy [address] [place] [address] Komal Mendoza, OTR/L [address] [place] [address] Lymphedema Occupational Therapy Comment on above: Lymphedema Start: 07-10-2024 End: 07-10-2024 ambulatory 07/10/2024 11:00 AM EST OT/PT/Speech Visit Occupational Therapy [address] [place] [address] Komal Mendoza, OTR/L [address] [place] [address] Lymphedema Occupational Therapy Comment on above: Lymphedema Start: 07-03-2024 End: 07-03-2024 ambulatory 07/03/2024 11:00 AM EST OT/PT/Speech Visit Occupational Therapy [address] [place] [address] LipaKomal robbins, OTR/L [address] [place] [address] Lymphedema Occupational Therapy Comment on above: Lymphedema Start: 06-26-2024 End: 06-26-2024 ambulatory 06/26/2024 9:00 AM EST OT/PT/Speech Visit Occupational Therapy [address] [place] [address] Komal Mendoza, OTR/L [address] [place] [address] Lymphedema [I89.0] Occupational Therapy Comment on above: Lymphedema [I89.0] Start: 06-21-2024 End: 06-21-2024 Patient encounter procedure 06/21/2024 10:00 AM EST Office Visit Radiation Oncology [address] [facility] [place] [address] Yosef Taylor MD [address] [place] [address] [place] [address] Follow up Radiation Oncology Comment on above: Follow up Start: 05-27-2024 End: 05-27-2024 Patient encounter procedure [facility] Comment on above: Arrived Start: 05-23-2024 End: 05-23-2024 Patient encounter procedure 05/23/2024 3:30 PM EDT Appointment Radiation Oncology [address] [place] [address] Neck Radiation Oncology Comment on above: Neck Start: 05-22-2024 End: 05-22-2024 Patient encounter procedure Radiation Oncology Comment on above: Neck Location: [facility] Start: 05-21-2024 End: 05-21-2024 Patient encounter procedure 05/21/2024 3:30 PM EDT Appointment [facility] [address] [facility] [place] [address] Neck Radiation Oncology Comment on above: Neck Start: 05-21-2024 End: 05-21-2024 ambulatory Occupational Therapy Comment on above: Lymphedema [I89.0] Start: 05-20-2024 End: 05-20-2024 Patient encounter procedure 05/20/2024 3:30 PM EDT Appointment Radiation Oncology [address] [facility] [place] [address] Neck Radiation Oncology Comment on above: Neck Start: 05-17-2024 End: 05-17-2024 Patient encounter procedure 05/17/2024 3:30 PM EDT Appointment Radiation Oncology [address] [facility] [place] [address] Neck Radiation Oncology Comment on above: Neck Start: 05-16-2024 End: 05-16-2024 Patient encounter procedure 05/16/2024 3:30 PM EDT Appointment Radiation Oncology [address] [facility] [place] [address] Neck Radiation Oncology Comment on above: Neck Start: 05-15-2024 End: 05-15-2024 Patient encounter procedure Radiation Oncology Comment on above: Neck Location: [facility] Start: 05-15-2024 End: 05-15-2024 ambulatory 05/15/2024 9:00 AM EDT OT/PT/Speech Visit Occupational Therapy [address] [place] [address] Komal Mendoza, OTR/L [address] [place] [address] Lymphedema [I89.0] Occupational Therapy Comment on above: Lymphedema [I89.0] Start: 05-14-2024 End: 05-14-2024 Patient encounter procedure 05/14/2024 3:30 PM EDT Appointment Radiation Oncology [address] [facility] [place] [address] Neck Radiation Oncology Comment on above: Neck Start: 05-13-2024 End: 05-13-2024 Patient encounter procedure 05/13/2024 3:30 PM EDT Appointment Radiation Oncology [address] [place] [address] Neck Radiation Oncology Comment on above: Neck Start: 05-10-2024 End: 05-10-2024 Patient encounter procedure 05/10/2024 3:30 PM EDT Appointment Radiation Oncology [address] [place] [address] Neck Radiation Oncology Comment on above: Neck Start: 05-09-2024 End: 05-09-2024 Patient encounter procedure 05/09/2024 3:30 PM EDT Appointment Radiation Oncology [address] [place] [address] Neck Radiation Oncology Comment on above: Neck Start: 05-08-2024 End: 05-08-2024 Patient encounter procedure Radiation Oncology Comment on above: Neck Location: [facility] Start: 05-08-2024 End: 05-08-2024 ambulatory 05/08/2024 8:00 AM EDT OT/PT/Speech Visit Occupational Therapy [address] [facility] [place] [address] Komal Mendoza, OTR/L [address] [place] [address] Lymphedema [I89.0] Occupational Therapy Comment on above: Lymphedema [I89.0] Start: 05-07-2024 End: 05-07-2024 Patient encounter procedure 05/07/2024 3:30 PM EDT Appointment Radiation Oncology [address] [place] [address] Neck Radiation Oncology Comment on above: Neck Start: 05-06-2024 End: 05-06-2024 Patient encounter procedure 05/06/2024 3:30 PM EDT Appointment Radiation Oncology [address] [place] [address] Neck Radiation Oncology Comment on above: Neck Start: 05-03-2024 End: 05-03-2024 Patient encounter procedure 05/03/2024 3:30 PM EDT Appointment Radiation Oncology [address] [place] [address] Neck Radiation Oncology Comment on above: Neck Start: 05-02-2024 End: 05-02-2024 Patient encounter procedure 05/02/2024 3:30 PM EDT Appointment Radiation Oncology [address] [place] [address] Neck Radiation Oncology Comment on above: Neck Start: 05-01-2024 End: 05-01-2024 Patient encounter procedure Radiation Oncology Comment on above: Neck Location: [facility] Start: 05-01-2024 End: 05-01-2024 ambulatory 05/01/2024 9:00 AM EDT OT/PT/Speech Visit Occupational Therapy [address] [place] [address] Komal Mendoza, OTR/L [address] [place] [address] Lymphedema [I89.0] Occupational Therapy Comment on above: Lymphedema [I89.0] Start: 04-30-2024 End: 04-30-2024 Patient encounter procedure 04/30/2024 3:30 PM EDT Appointment Radiation Oncology [address] [place] [address] Neck Radiation Oncology Comment on above: Neck Start: 04-29-2024 End: 04-29-2024 Patient encounter procedure 04/29/2024 3:30 PM EDT Appointment Radiation Oncology [address] [place] [address] Neck Radiation Oncology Comment on above: Neck Start: 04-26-2024 End: 04-26-2024 Patient encounter procedure Radiation Oncology Comment on above: Neck Start: 04-25-2024 End: 04-25-2024 Patient encounter procedure 04/25/2024 3:30 PM EDT Appointment Radiation Oncology [address] [place] [address] Neck Radiation Oncology Comment on above: Neck Start: 04-25-2024 End: 04-25-2024 ambulatory 04/25/2024 8:00 AM EDT OT/PT/Speech Visit Occupational Therapy [address] [place] [address] Komal Mendoza, OTR/L [address] [place] [address] Lymphedema [I89.0] Occupational Therapy Comment on above: Lymphedema [I89.0] Start: 04-24-2024 End: 04-24-2024 Patient encounter procedure Radiation Oncology Comment on above: Neck Location: [facility] Start: 04-23-2024 End: 04-23-2024 Patient encounter procedure 04/23/2024 3:15 PM EDT Appointment Radiation Oncology [address] [facility] [place] [address] Neck Radiation Oncology Comment on above: Neck Start: 04-22-2024 End: 04-22-2024 Patient encounter procedure 04/22/2024 3:30 PM EDT Appointment Radiation Oncology [address] [facility] [place] [address] Neck Radiation Oncology Comment on above: Neck Start: 04-22-2024 End: 04-22-2024 Patient encounter procedure 04/22/2024 2:15 PM EDT Office Visit [facility] [place] [address] [place] [phone] Khadar Hill W, DO [address] [place] [address] Arrived [facility] [place] Comment on above: Arrived Start: 04-19-2024 End: 04-19-2024 Patient encounter procedure 04/19/2024 12:45 PM EDT Appointment Radiation Oncology [address] [facility] [place] [address] Neck Radiation Oncology Comment on above: Neck Start: 04-18-2024 End: 04-18-2024 Patient encounter procedure 04/18/2024 3:00 PM EDT Appointment Radiation Oncology [address] [facility] [place] [address] Neck Radiation Oncology Comment on above: Neck Start: 04-17-2024 End: 04-17-2024 Patient encounter procedure Radiation Oncology Comment on above: Neck Location: [facility] Start: 04-16-2024 End: 04-16-2024 ambulatory 04/16/2024 10:00 AM EDT OT/PT/Speech Visit Occupational Therapy [address] [place] [address] Komal Mendoza, OTR/L [address] [place], [place] [id number] Lymphedema Occupational Therapy Comment on above: Lymphedema Start: 04-14-2024 Covid-19 Vaccine ( season) Covid-19 Vaccine () [facility] Start: 04-14-2024 Covid-19 Vaccine () Covid-19 Vaccine () [facility] Start: 04-14-2024 Influenza vaccination Influenza Vacc ine (#1) [facility] Start: 04-11-2024 End: 04-11-2024 Patient encounter procedure Radiation Oncology Comment on above: NEW START NECK NEW START NECK - NEE DS 245 OR LATER D/T WORK Start: 04-08-2024 End: 04-08-2024 Patient encounter procedure Radiation Oncology Comment on above: NEW START NECK NEW START NECK - WOU LD LIKE 2:45 OR AFTER Start: 03-28-2024 End: 03-28-2024 Patient encounter procedure 03/28/2024 8:30 AM EDT OT/PT/Speech Visit [facility] Occupational Therapy [address] [place] [address] Kathleen Stovall, OTR/L [address] [place] [address] 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] [facility] Occupational Therapy Comment on above: 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) [C08.9] Start: 03-25-2024 End: 03-25-2024 ambulatory 03/25/2024 3:00 PM EDT Visit (SP) Office Hematology/Oncology [address] [place] [address] Jose Ortiz MD [address] [place], [place] [id number] Malignant neoplasm of parotid gland Hematology/Oncology Comment on above: Malignant neoplasm o f parotid gland Start: 03-18-2024 End: 03-18-2024 Patient encounter procedure 03/18/2024 9:00 AM EDT Office Visit Radiation Oncology [address] [place] [address] Matt Monreal MD [address] [place] [address] Malignant neoplasm of parotid gland Radiation Oncology Comment on above: Malignant neoplasm o f parotid gland Start: 02-24-2024 [facility] Start: 02-23-2024 Hospital admission [facility] Start: 02-23-2024 [facility] Start: 04-14-2023 Covid-19 Vaccine ( season) Covid-19 Vaccine () [facility] Start: 04-14-2023 Influenza vaccination INFLUENZ A (Season Ended) [facility] Start: 2022 Screening for malign ant neoplasm of colon [facility] Start: 11-15-2022 End: 06-15-2023 CT CHEST W IVCON CT CHEST W IVCON Radiology Routine Malignant neoplasm of parotid gland (HCC) Expected: 11/15/2022 (Approximate), Expires: 06/15/2023 [facility] Work Phone: Comment on above: Expected: 11/15/2022 (Approximate), Expires: 06/15/2023 Start: 11-15-2022 End: 06-15-2023 Ct soft tissue neck w/contrast material CT NECK SOFT TISSUE W IVCON Radiology Routine Malignant neoplasm of parotid gland (HCC) Expected: 11/15/2022 (Approximate), Expires: 06/15/2023 [facility] Work Phone: Comment on above: Expected: 11/15/2022 (Approximate), Expires: 06/15/2023 Start: 10-22-2022 Adult depression screening assessment DEPRESSION SCREENING [facility] Start: 08-14-2022 DEPRESSION ASSESSMENT DEPRESSION ASS ESSMENT [facility] Start: 04-14-2022 Influenza vaccination INFLUENZA (#1) [facility] Start: 09-27-2021 COVID-19 VACCINE (4 - Booster for Pfizer series) COVID-19 VACCINE (4 - Booster for Pfizer series) [facility] Start: 08-14-2021 [facility]: 04-14-2021 Influenza vaccination INFLUENZA (#1) [facility] Start: 2012 Lipid panel Lipid Screening [facility] Start: 2012 LIPID SCREEN LIPID SCREEN [facility] Start: 1996 Urine microalbumin profile DTAP,TDAP,TD (1 - Tdap) [facility] Start: 12-21-1995 Anxiety Screening Anxiety Screening [facility] Start: 12-21-1995 Depression Screening Depression Scre ening [facility] Start: 12-21-1995 HEPATITIS C SCREENING HEPATITIS C [facility] Start: 12-21-1995 Hepatitis C screening Hepatitis C [facility] Start: 12-21-1995 HIV SCREENING HIV SCREENING [facility] Start: 12-21-1995 HIV screening HIV Screening [facility] Start: 1977 Screening for malign ant neoplasm of colon [facility] End: 09-04-2025 CT Chest W contrast IV CT CHEST W IVCON Radiology Routine Malignant neoplasm of salivary gland (HCC) 1 Occurrences starting 08/05/2024 until 09/04/2025 [facility] Comment on above: 1 Occurrences starti ng 08/05/2024 until 09/04/2025 CT Guidance for radiation treatment of Unspecified body region CT SIM PLANNING RADIATION ONCOLOGY Radiology Routine Malignant neoplasm of salivary gland (HCC) Ordered: 03/20/2024 [facility] Work Phone: Comment on above: Ordered: 03/20/2024 End: 09-04-2025 CT Neck W contrast IV CT NECK SOFT TISSUE W IVCON Radiology Routine Malignant neoplasm of salivary gland (HCC) 1 Occurrences starting 08/05/2024 until 09/04/2025 [facility] Work Phone: Comment on above: 1 Occurrences starti ng 08/05/2024 until 09/04/2025 End: 11-21-2022 Ct soft tissue neck w/contrast material CT NECK SOFT TISSUE W IVCON Radiology Routine Malignant neoplasm of parotid gland (HCC) 1 Occurrences starting 10/22/2021 until 11/21/2022 [facility] Work Phone: Comment on above: 1 Occurrences starti ng 10/22/2021 until 11/21/2022 End: 11-21-2022 Ct thorax w/contrast material CT CHEST W IVCON Radiology Routine Malignant neoplasm of head, face and neck (HCC) 1 Occurrences starting 10/22/2021 until 11/21/2022 [facility] Work Phone: Comment on above: 1 Occurrences starti ng 10/22/2021 until 11/21/2022 OUTSIDE SURG PATH SL EDGARDO REVIEW OUTSIDE SURG PATH SLIDE REVIEW Lab Routine Malignant neoplasm of parotid gland (HCC) Ordered: 03/04/2024 [facility] Work Phone: Comment on above: Ordered: 03/04/2024 Patient Education [facility] Surgical treatment for head and neck cancer Know your Meds [facility] Work Phone: Patient referral [facility] Work Phone: [facility] Immunizations Immunization Date Immunization Notes Care Provider Fa cili 10-27-2021 diphtheria, tetanus toxoids and pertussis vaccine Yosef Taylor MD Work Phone: [facility] 08-02-2021 COVID-19 mRNALaci (Pfizer) MD Tristian Pcaheco Work Phone: [facility] 10-19-2020 COVID-19 mRNA,[id number] b2 (Pfizer) Tristian Pacheco Work Phone: [facility] 10-01-2020 COVID-19 mRNA,[id number] b2 (Pfizer) Tristian Pacheco Work Phone: [facility] 01-25-2002 hepatitis B vaccine, adult dosage Yosef Taylor MD Work Phone: [facility] 11-12-2001 hepatitis B vaccine, adult dosage Yosef Taylor MD Work Phone: [facility] 08-28-2001 hepatitis B vaccine, adult dosage Yosef Taylor MD Work Phone: [facility] Payers Date Payer Category Payer Self-pay [id number] 2021 Unknown [id number] 2015 Private Health Insurance [id number] 2015 Unknown MMO [employer]MO [employer] [id number] 2015-Present [phone] [address] [place] [address] PPO [id number] 2015 Unknown [id number] 2015 Unknown [id number] 1977 Unknown [id number] 1977 Unknown [id number] 259 1977 Unknown [id number] 259 1977 Unknown [id number] 259 1977 Unknown [id number] 259 1977 Unknown [id number] 259 1977 Unknown [id number] 259 1977 Unknown [id number] 259 1977 Unknown [id number] 1975 Unknown [id number] 1975 Unknown [id number] 1959 Unknown [id number] Unknown [id number] 31 Unknown [id number] 31 Unknown [id number] 31 Unknown [id number] 31 Social History Date Type Detail Facility Tobacco smoking stat [facility] Unknown if ever smoked [facility] Start: 1975 Sex Assigned At Male [facility] Start: 01-22-2021 End: 03-17-2023 Tobacco smoking status COIS Ex-smoker (finding) [facility] Start: 05-16-2022 End: 02-26-2025 History of tobacco use [facility] Start: 08-14-1995 End: 08-14-2011 History of tobacco use Current smoker [facility] Start: 08-14-1995 End: 08-14-2011 History of tobacco use Cigarette Smoker [facility] Start: 02-17-2021 End: 02-26-2025 Cigarettes smoked current (pack per day) - Reported 0.25 [facility] Start: 02-17-2021 End: 05-01-2024 Tobacco use and exposure Smokeless tobacco non-user [facility] Start: 10-22-2021 End: 02-26-2025 Alcohol intake Current drinker of alcohol (finding) [facility] Start: 1975 Sex Assigned At Not on file [facility] Start: 05-22-2021 End: 05-16-2022 Exposure to SARS-CoV-2 (event) Not sure [facility] Adult Depression Screening Assessment 0 [facility] Start: 03-17-2023 Tobacco Comment Last smoked : 5-10 years [facility] Start: 03-17-2023 Alcohol Comment caffeine intak e: 1-2 cups per day [facility] Start: 11-29-2024 Sex Male (finding) [facility] Medical Equipment Procedure Code Equipment Code Equipment Origin al Text Equipment Identifier Dates Direct laryngoscopy with biopsy with microscope VISTASEAL 4ML [employer] Start: 01-29-2021 Direct laryngoscopy with biopsy with microscope VISTASEAL 4ML FIBRIN SEALANT FDA Start: 01-29-2021 Direct laryngoscopy with biopsy with microscope VISTASEAL 4ML FIBRIN SEALANT FDA Start: 01-29-2021 Direct laryngoscopy with biopsy with microscope VISTASEAL 4ML F[employer]RIN [employer] FDA Start: 01-29-2021 Direct laryngoscopy with biopsy with microscope VISTASEAL 4ML F[employer]RIN [employer] Start: 01-29-2021 Goals Date Patient Goal Desired Activity /State Functional Status Date Assessment Result Facility 02-24-2024 Functional status Patient at Baseline [facility] Work Phone: Mental Status Date Assessment Result Facility 02-24-2024 Cognitive function Cognitive Sta tus Patient at Baseline [facility] Work Phone: Clinical Notes 02-12-2021 to 02-26-2025 Khadar Hill DO - 02/26/2025 2:00 PM Marie Hill, - 01/08/2025 1:15 PM Yosef Chiang MD - 12/13/2024 11:16 PM Marie Hill DO - 11/13/2024 1:15 PM EDT Note Date & Type Note Facility 02-26-2025 History of Present illness Narrative Subjective Patient ID: HPI Patient presents today for cancer surveillance. 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 This was followed by radiation therapy. He is doing fine. Review of Systems ROS The specialty specific review of systems is noncontributory except for that recorded in the intake questionnaire and /or described in the history of present illness. Objective ENT Physical Exam Physical Exam Constitutional: Appearance: Normal appearance. HENT: Head: Atraumatic. Ears: External ear shows no abnormality Bilateral ear canals are clear Tympanic membranes intact, no evidence of middle ear fluid or other pathology. Nose: External nose appears to be normal Nares patent. Septal deviation to the right No evidence of polyp, mass or pus bilaterally. Oral Cavity: No evidence of trismus Lips appear normal Dental good Tongue of normal size and configuration, floor of mouth mucosa clear. Buccal mucosa shows no evidence of ulceration, mass or other abnormality Hard palate soft palate mucosa intact with no evidence of mass, ulceration or other abnormality Uvula of normal size and configuration Oropharynx: Tonsils absent Posterior pharyngeal wall normal Neck: No evidence of palpable abnormality Thyroid without evidence of thyromegaly or mass. No cervical lymphadenopathy present. Cardiovascular: Rate and Rhythm: Normal rate and regular rhythm. . Skin: General: Skin is warm and dry. Neurological: General: No focal deficit present. Mental Status: alert and oriented to person, place, and time. Assessment/Plan Scarlet was seen today for cancer. Diagnoses and all orders for this visit: Salivary gland cancer (HCC) (Primary) Comments: Primarily still has never made itself known. There is no evidence of disease today, I will see him back in 3 months History of neck dissection Comments: See above documented in this encounter [facility] 01-08-2025 History of Present illness Narrative Subjective Patient ID: HPI Patient presents today for cancer surveillance. 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 He is doing well. Recent the CT scan was performed at the [facility] and I reviewed this, I concur there is nothing pathologic in the neck. Review of Systems ROS The specialty specific review of systems is noncontributory except for that recorded in the intake questionnaire and /or described in the history of present illness. Objective ENT Physical Exam Physical Exam Constitutional: Appearance: Normal appearance. HENT: Head: Atraumatic. Ears: External ear shows no abnormality Bilateral ear canals are clear Tympanic membranes intact, no evidence of middle ear fluid or other pathology. Nose: External nose appears to be normal Nares patent. Septal deviation to the right No evidence of polyp, mass or pus bilaterally. Oral Cavity: No evidence of trismus Lips appear normal Dental good Tongue of normal size and configuration, floor of mouth mucosa clear. Buccal mucosa shows no evidence of ulceration, mass or other abnormality Hard palate soft palate mucosa intact with no evidence of mass, ulceration or other abnormality Uvula of normal size and configuration Oropharynx: Tonsils absent Posterior pharyngeal wall Neck: No evidence of palpable abnormality Thyroid without evidence of thyromegaly or mass. No cervical lymphadenopathy present. Cardiovascular: Rate and Rhythm: Normal rate and regular rhythm. . Skin: General: Skin is warm and dry. Neurological: General: No focal deficit present. Mental Status: alert and oriented to person, place, and time. Assessment/Plan Scarlet was seen today for cancer. 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 Author Type: Physician Type: Progress Notes Filed: 12/31/2024 04:59 Note Text: Radiation Oncology - Follow Up Note PATIENT NAME: Scarlet Mayer PATIENT DIAGNOSIS/PATIENT IDENTIFICATION: Mr. 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 He completed adjuvant radiotherapy to the right neck (60Gy/30) on 05/10/21. He developed recurrence in the LEFT neck and underwent left lingual tonsillectomy, left 1A-5 neck dissection (2/15 nodes, up to 2.6cm, no definite RAJIV) on 02/23/24. He met with the head and neck team at [facility] with recommendation to proceed to post-operative radiation therapy to the left neck for local control which he completed on 05/23/2024 (6000 cGy delivered in 30 fractions). INTERVAL HISTORY: Mr. Mayer returns to clinic today for routine follow-up approximately six months after the completion of his radiation treatments and three months since his last visit on 08/05/2024. In the interim, he had repeat imaging with CT neck and chest on 12/05/2024 showing no evidence of recurrent or metastatic disease. Today he notes some tightness in the area of the neck and is slightly sensitive to touch but otherwise denies any pain or discomfort in the area notes no new lumps or bumps. He does continue with lymphedema therapy and massage for the neck and reports no loss of range of motion. He notes no new sores or ulcers in the mouth and does note some dry mouth with altered taste. He is able to swallow well and eat all consistencies endorses stable energy appetite and hydration with stable weight. ALLERGIES ALLERGIES No Known Allergies MEDICATIONS: Current Outpatient Medications: multivitamin tablet ibuprofen (MOTRIN) 200 mg tablet iv contrast (will be provided with radiology test) iv contrast (will be provided with radiology test) diphenhydrAMINE 12.5 mg/5 mL lidocaine visc 2% MAALOX 200-200-20 mg/5 mL oral liquid 1:1:1 (CPD) iv contrast (will be provided with radiology test) PHYSICAL EXAM: GENERAL: Middle-age gentleman sitting in chair in no acute distress. VITALS: BP 123/87 Pulse 61 Temp 98 Resp 16 Wt 230 lb 9.6 oz (104.6kg) SpO2 98% KPS: 90 HEENT: NC/AT, anicteric sclera HEART: S1S2 LUNGS: non-labored breathing ABDOMEN: soft MUSCULOSKELETAL: no peripheral edema, moves all extremities. NEURO: no focal deficit; AANDO X3. RADIOLOGIC DATA: CT Neck (12/05/2024) IMPRESSION: No recurrent mass, new mass or lymphadenopathy. CT Chest (12/05/2024) IMPRESSION: No metastatic disease in chest. ASSESSMENT AND PLAN: Mr. 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 He completed adjuvant radiotherapy to the right neck (60Gy/30) on 05/10/21. He developed recurrence in the LEFT neck and underwent left lingual tonsillectomy, left 1A-5 neck dissection (2/15 nodes, up to 2.6cm, no definite RAJIV) on 02/23/24. He met with the head and neck team at [facility] with recommendation to proceed to post-operative radiation therapy to the left neck for local control which he completed on 05/23/2024 (6000 cGy delivered in 30 fractions). Mr. Mayer is doing well clinically approximately a year and a half out from the completion of his radiation treatments to the head and neck. He is without clinical or radiographic in his disease based on recent CT imaging from 12/05/2024 as well as head and neck examination by Dr. Hill. I will plan to see him back in approximately 6 months for follow-up. The patient is aware to contact the clinic in the interim should any questions or concerns arise. Thank you for allowing us to participate in the care of this patient. Signed by: Yosef Taylor MD I spent a total of 20 minutes on the date of the service which included preparing to see the patient, [id number] patient care, and counseling and educating the patient/family/caregiver. This document has been created with the use of voice recognition technology. It may contain inaccuracies, misspellings, inaccurate syntax or inappropriate word context that are a result of the inadequacies/shortcomings of said technology/software. [facility] 12-13-2024 History of Present illness Narrative Radiation Oncology - Follow Up Note PATIENT NAME: Scarlet Mayer PATIENT Signed by: Yosef Taylor MD I spent a total of 20 minutes on the date of the service which included preparing to see the patient, [id number] patient care, and counseling and educating the patient/family/caregiver. This document has been created with the use of voice recognition technology. It may contain inaccuracies, misspellings, inaccurate syntax or inappropriate word context that are a result of the inadequacies/shortcomings of said technology/software. documented in this encounter [facility] 12-05-2024 Note HNO ID: [id number] Author: EDWARDO GARCIA RN Service: ? Author Type: Registered Nurse Type: Progress Notes Filed: 12/05/2024 08:55 Note Text: Radiology Service Progress Note DATE OF SERVICE: December 05, 2024 TIME: 8:54 AM PATIENT WEIGHT: 229LBS PATIENT IDENTITY VERIFICATION COMPLETED USING TWO (2) STANDARD IDENTIFIERS: Name and Date of confirmed by patient verbally. FALL SCREENING: Has the patient had 2 falls in the last year or 1 fall with injury or currently using an Ambulatory Assistive Device (Walker, Cane, Wheelchair, Crutches, etc.)? No PATIENT GENDER DATA: Assigned male at ALLERGIES: Reviewed and unchanged CONTRAST ALLERGY: No EXAM: CT -CONTRAST INDUCED NEPHROPATHY RISK FACTORS: Not applicable CREATININE: Creatinine Date Value Ref Range Status 07/16/2021 1.10 0.73 - 1.22 mg/dL Final 02/18/2021 1.09 0.73 - 1.22 mg/dL Final eGFR-All Other Races Date Value Ref Range Status 07/16/2021 >60 . Final Comment: eGFR (Estimated GFR) Units of measure: mL/min/1.73 meters squared eGFR is derived from the reexpressed MDRD Study equation using the following parameters: serum creatinine, age, gender and race. The creatinine assay has been calibrated to be traceable to IDMS. An eGFR <60 mL/min/1.73m2 for >3 months is consistent with chronic kidney disease. Refer to KDOQI guidelines for clinical interpretation. In patients with unstable renal function, e.g. those with acute kidney injury, the eGFR may not accurately reflect actual GFR. Note: On 10/09/2021, the eGFR calculation will be updated to the NKF-ASN Task Force recommended 2020 CKD-EPI creatinine equation which does not include a race variable. For more information or to access a 2020 CKD-EPI calculator, visit the [employer] Kid[employer] website at kidney.org/professionals/kdoqi/gf r_calculator. eGFR- Date Value Ref Range Status 07/16/2021 >60 Final P.O.C.T. RESULTS: N/A December 05, 2024 TREATMENT: N/A IV SITE: Ambulatory: A peripheral IV was started in the Right antecubital site with a Angio cath: 20 gauge. IV SITE APPEARANCE: Clean,Dry and Intact SIGNATURE: Edwardo Garcia RN PATIENT NAME: Scarlet Mayer DATE: December 05, 2024 TIME: 8:54 AM [facility] 12-05-2024 Note HNO ID: [id number] Author: MIS ROJAS RT(Ryan) Service: ? Author Type: Technologist Type: Progress Notes Filed: 12/05/2024 09:06 Note Text: Radiology Service Progress Note PATIENT NAME: Scarlet Mayer DATE OF SERVICE: December 05, 2024 TIME: 9:05 AM PATIENT IDENTITY VERIFICATION COMPLETED USING TWO (2) IDENTIFIERS: Name and Date of confirmed by patient verbally. FALL SCREENING: Has the patient had 2 falls in the last year or 1 fall with injury or currently using an Ambulatory Assistive Device (Walker, Cane, Wheelchair, Crutches, etc.)? No PATIENT GENDER DATA: Assigned male at PATIENT RELEVANT IMPLANT DATA REVIEWED: Not Applicable PATIENT PRESENTS WITH AN IMPLANTABLE OR ATTACHED ENTERTAINER & COMIC: No RADIOLOGY DEPARTMENT: CT; Exam(s) Completed: Chest and Neck PERIPHERAL IV DATA: Site assessment: Clean,Dry and Intact, Site disposition Discontinued SIGNED BY: RT Lianne(Ryan) December 05, 2024 9:05 AM [facility] 11-13-2024 History of Present illness Narrative Subjective Patient ID: HPI Patient presents today for cancer surveillance. 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 He also had postoperative radiation therapy. That was his 2nd neck dissection, previously on the right side. Continues to do well. Review of Systems ROS The specialty specific review of systems is noncontributory except for that recorded in the intake questionnaire and /or described in the history of present illness. Objective ENT Physical Exam Physical Exam Constitutional: Appearance: Normal appearance. HENT: Head: Atraumatic. Ears: External ear shows no abnormality Bilateral ear canals are clear Tympanic membranes intact, no evidence of middle ear fluid or other pathology. Nose: External nose appears to be normal Nares patent. Septal deviation to the right No evidence of polyp, mass or pus bilaterally. Oral Cavity: No evidence of trismus Lips appear normal Dental good Tongue of normal size and configuration, floor of mouth mucosa clear. Buccal mucosa shows no evidence of ulceration, mass or other abnormality Hard palate soft palate mucosa intact with no evidence of mass, ulceration or other abnormality Uvula of normal size and configuration Oropharynx: Tonsils absent Posterior pharyngeal wall normal Neck: No evidence of palpable abnormality Thyroid without evidence of thyromegaly or mass. No cervical lymphadenopathy present. Cardiovascular: Rate and Rhythm: Normal rate and regular rhythm. . Skin: General: Skin is warm and dry. Neurological: General: No focal deficit present. Mental Status: alert and oriented to person, place, and time. Assessment/Plan Scarlet was seen today for cancer. 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 He is doing fine. Said he recently a CT scan done at the oncology center and was told it was negative. Review of Systems ROS The specialty specific review of systems is noncontributory except for that recorded in the intake questionnaire and /or described in the history of present illness. Objective ENT Physical Exam Physical Exam Constitutional: Appearance: Normal appearance. HENT: Head: Atraumatic. Ears: External ear shows no abnormality Bilateral ear canals are clear Tympanic membranes intact, no evidence of middle ear fluid or other pathology. Nose: External nose appears to be normal Nares patent. Septal deviation to the right No evidence of polyp, mass or pus bilaterally. Oral Cavity: No evidence of trismus Lips appear normal Dental excellent Tongue of normal size and configuration, floor of mouth mucosa clear. Buccal mucosa shows no evidence of ulceration, mass or other abnormality Hard palate soft palate mucosa intact with no evidence of mass, ulceration or other abnormality Uvula of normal size and configuration Oropharynx: Thorough examination of the oropharynx including mirror examination of the base of tongue and surrounding structures shows nothing suggestive of tumor. Neck: No evidence of palpable abnormality Thyroid without evidence of thyromegaly or mass. No cervical lymphadenopathy present. Cardiovascular: Rate and Rhythm: Normal rate and regular rhythm. . Skin: General: Skin is warm and dry. Neurological: General: No focal deficit present. Mental Status: alert and oriented to person, place, and time. Assessment/Plan Scarlet was seen today for cancer. Diagnoses and all orders for this visit: Encounter for follow-up surveillance of salivary gland cancer (Primary) Comments: There is no clinical evidence of disease on today's exam, I will see him back in 6 weeks 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/HCC) Comments: See above History of neck dissection Comments: See above documented in this encounter [facility] 08-21-2024 Note HNO ID: [id number] Author: KOMAL MENDOZA OTR/Toby Service: ? Author Type: Occupational Therapist Type: Progress Notes Filed: 08/21/2024 12:51 Note Text: Episode Visit Count: 9 - #1 visit in 2024 Therapist That Will Accept/Oversee The Plan Of Care: Rigoberto Start of Care Date: 03/28/24 Onset Date: 03/18/24 Patient Identified by Name and Date of : Yes REHABILITATION AND SPORTS THERAPY OCCUPATIONAL THERAPY PROGRESS REPORT PLAN OF CARE UPDATE: Assessment: Scarlet Mayer demonstrates slight improvements in HAND N lymphedema - despite very diligent home self mgmt program. Pt has been wearing his LANDR HANDN compression garment 7-9 hours per day, performing scar and MLD - assists as needed. Pt's neck swelling has not worsened, the scar is still tight (not as much as before) and tissue soft and fairly mobile continued daily consistent home self mgmt encouraged. Home pump is still in the works - OT contacted [employer] rep (Maryam Rasmussen) for update. Rep just waiting for a legible MD Rx Fax - OT staff msged MD to resend to [employer] so the home pump can progress to shipment and pt can begin to add to home self mgmt tools. The patient has progressed slowly toward goals. Patient continues to present with impairments in edema management, scar tightness and range of motion, and symptom management that interfere with lymphedema mgmt Current prognosis is . good The patient will benefit from continued skilled therapy services to meet the updated goals for this plan of care as noted below. PLAN FOR NEXT VISIT: follow up 1 month after pt rec home pump - lymphedema surveillance, sooner if needed Updated goals on 08/21/2024 Goals for Episode of Care created on 03/28/24 through 05/23/24,extended on 06/26/2024 - 09/26/2023 and beyond Pt to work on ALL ONGOING goals below Patient will increase pain free neck AROM by 5 deg to allow for neutral postural alignment, improved performance with ADL/IADL- ONGOING - MOSTLY MET in progress Patient will increase mandibular AROM equal to or greater than 50 mm in order to be able to open mouth for oral hygiene and dental procedures.ONGOING - MOSTLY MEETING -continued L cheek swelling noted today intraoral Patient will demonstrate independence with home exercise program including self MLD, compression wrap/garment, desensitization, skin care guidelines, scar massage, ROM and strengthening exercises. ONGOING - IN PROGRESS Patient will decrease Neck Composite Score by 2% or greater for decreased risk of infection, improved rom and posture. ONGOING - SLOW PROGRESS set back from radiation Patient Goals: manage swelling and tightness Patient Goals: manage swelling and tightness Planned Interventions, Frequency, and Duration: , Total Number of Visits Planned: (3-6 throughout the year for lymphedema surveillance) Planned Treatment Interventions: Therapeutic exercise (86044), Manual therapy (69201), Self-halfway management (80562) PLAN FOR NEXT VISIT: follow up 1 month after pt rec home pump - lymphedema surveillance, sooner if needed SUBJECTIVE: HANDN lymphedema - approx 6 months S/P surgery and 12 weeks post completion of radiation. Pt here today with spouse - pt reports he has been wearing his compression garment more, doing daily ROM, MLD, scar massage - pt had [employer] Home pump trial - has not heard the updated status on ability to rec at home Pain: Pain Pain Level: 0 Post Treatment Pain Post Treatment Pain Level: 0 PROMIS Scales 06/24/2024 04/25/2024 03/28/2024 Higher is Better Phys Func - Score 56 (within normal limits) 48 (within normal limits) 57 (within normal limits) Phys Func - Percentile 73 42 76 Self-Eff Symptom - Score 49 (Average) 48 (Average) 57 (Average) Self-Eff Symptom - Percentile 46 42 76 T-scores: mean of general population = 50. 5 points is clinically meaningfully difference Percentiles provide an indication of how the patient's score ranks in relation to the general population. Higher percentile rankings indicate better function/quality of life. 50th percentile is the average of the general population and indicates half of respondents had a worse score. OBJECTIVE MEASURES WITH LEVEL OF FUNCTION: NECK SCARS - tight and adhered - but less tight than previous visit - slow progress POSTURE- improving UE AROM - WNL HEAD AND NECK AROM - improving but still some tightness end ranges- worse in AM SWELLING - noted in neck and L cheek - persist slow progress Head and Neck Measurements Superior Neck (cm): 49 cm Middle Neck (cm): 44 cm Inferior Neck (cm): 41 cm TREATMENT: Manual Therapy Lymphedema: 1: MLD HANDN sequence- after diaphrmatic breathing, axillary and supraclvicular LN opening - anterior approach 2: scar massage and mobilization 3: intraoral massage L side of face - cheek Skilled Intervention: Manual skills to improve joint mobility, ROM, and decrease pain. Utiliz (more content not included)... [facility] 08-21-2024 History of Present illness Narrative Episode Visit Count: 9 - #1 visit in 2024 Therapist That Will Accept/Oversee The Plan Of Care: Rigoberto Start of Care Date: 03/28/24 Onset Date: 03/18/24 Patient Identified by Name and Date of : Yes REHABILITATION AND SPORTS THERAPY OCCUPATIONAL THERAPY PROGRESS REPORT PLAN OF CARE UPDATE: Assessment: Scarlet Leyla demonstrates slight improvements in H& N lymphedema - despite very diligent home self mgmt program. Pt has been wearing his L&R H&N compression garment 7-9 hours per day, performing scar and MLD - assists as needed. Pt's neck swelling has not worsened, the scar is still tight (not as much as before) and tissue soft and fairly mobile continued daily consistent home self mgmt encouraged. Home pump is still in the works - OT contacted [employer] rep (Maryam Grady) for update. Rep just waiting for a legible MD Rx Fax - OT staff agustin GIMENEZ to resend to [employer] so the home pump can progress to shipment and pt can begin to add to home self mgmt tools. The patient has progressed slowly toward goals. Patient continues to present with impairments in edema management, scar tightness and range of motion, and symptom management that interfere with lymphedema mgmt Current prognosis is . good The patient will benefit from continued skilled therapy services to meet the updated goals for this plan of care as noted below. PLAN FOR NEXT VISIT: follow up 1 month after pt rec home pump - lymphedema surveillance, sooner if needed Updated goals on 08/21/2024 Goals for Episode of Care created on 03/28/24 through 05/23/24,extended on 06/26/2024 - 09/26/2023 and beyond Pt to work on ALL ONGOING goals below Patient will increase pain free neck AROM by 5 deg to allow for neutral postural alignment, improved performance with ADL/IADL- ONGOING - MOSTLY MET in progress Patient will increase mandibular AROM equal to or greater than 50 mm in order to be able to open mouth for oral hygiene and dental procedures.ONGOING - MOSTLY MEETING -continued L cheek swelling noted today intraoral Patient will demonstrate independence with home exercise program including self MLD, compression wrap/garment, desensitization, skin care guidelines, scar massage, ROM and strengthening exercises. ONGOING - IN PROGRESS Patient will decrease Neck Composite Score by 2% or greater for decreased risk of infection, improved rom and posture. ONGOING - SLOW PROGRESS set back from radiation Patient Goals: manage swelling and tightness Patient Goals: manage swelling and tightness Planned Interventions, Frequency, and Duration: , Total Number of Visits Planned: (3-6 throughout the year for lymphedema surveillance) Planned Treatment Interventions: Therapeutic exercise (98296), Manual therapy (41194), Self-halfway management (98166) PLAN FOR NEXT VISIT: follow up 1 month after pt rec home pump - lymphedema surveillance, sooner if needed SUBJECTIVE: H&N lymphedema - approx 6 months S/P surgery and 12 weeks post completion of radiation. Pt here today with spouse - pt reports he has been wearing his compression garment more, doing daily ROM, MLD, scar massage - pt had [employer] Home pump trial - has not heard the updated status on ability to rec at home Pain: Pain Pain Level: 0 Post Treatment Pain Post Treatment Pain Level: 0 PROMIS Scales 06/24/2024 04/25/2024 03/28/2024 Higher is Better Phys Func - Score 56 (within normal limits) 48 (within normal limits) 57 (within normal limits) Phys Func - Percentile 73 42 76 Self-Eff Symptom - Score 49 (Average) 48 (Average) 57 (Average) Self-Eff Symptom - Percentile 46 42 76 T-scores: mean of general population = 50. 5 points is clinically meaningfully difference Percentiles provide an indication of how the patient's score ranks in relation to the general population. Higher percentile rankings indicate better function/quality of life. 50th percentile is the average of the general population and indicates half of respondents had a worse score. OBJECTIVE MEASURES WITH LEVEL OF FUNCTION: NECK SCARS - tight and adhered - but less tight than previous visit - slow progress POSTURE- improving UE AROM - WNL HEAD AND NECK AROM - improving but still some tightness end ranges- worse in AM SWELLING - noted in neck and L cheek - persist slow progress Head and Neck Measurements Superior Neck (cm): 49 cm Middle Neck (cm): 44 cm Inferior Neck (cm): 41 cm TREATMENT: Manual Therapy Lymphedema: 1: MLD H&N sequence- after diaphrmatic breathing, axillary and supraclvicular LN opening - anterior approach 2: scar massage and mobilization 3: intraoral massage L side of face - cheek Skilled Intervention: Manual skills to improve joint mobility, ROM, and decrease pain. Utilized anatomy knowledge of the therapist, and assessment of patient's response to intervention. Increase lymphatic fluid dynamics, increase skin extensibility and normalize sensation. Self-Senior Care Management: 1: measurements of neck - showing - swelling not getting worse 2: assess ROM, scars - slowly improving - continued diligent home self mgmt needed 3: pump status - OT contacted [employer] (Maryam Short) rep - via speaker phone - per rep - [employer] needs legible signature - OT contacted Dr. Monreal to resend Rx 4: encouraged H&N - night wear if possible 5: suggested rolling tool for neck massage Skilled Intervention: Reviewed patient specific diagnosis in relation to activities of daily living/home management. Activity progression based on professional judgement. Billing Manual Therapy Treatment Minutes: 40 Self-Care/Home Management Treatment Minutes: 15 Skilled Treatment Time Minutes (timed and untimed codes): 55 Total Session Time (minutes): 55 Session Start Time : 1000 Session Stop Time : 1055 ROBERT Kerns documented in this encounter [facility] 08-12-2024 History of Present illness Narrative Subjective Patient ID: HPI Patient presents today for cancer surveillance. He is status post left neck dissection, the 2nd neck dissection for a yet to be discovered primary salivary gland cancer of the head and neck. Says he just underwent a CT scan at the [facility] cancer center and that was reported as nothing concerning. Review of Systems ROS The specialty specific review of systems is noncontributory except for that recorded in the intake questionnaire and /or described in the history of present illness. Objective ENT Physical Exam Physical Exam Constitutional: Appearance: Normal appearance. HENT: Head: Atraumatic. Ears: External ear shows no abnormality Bilateral ear canals are clear Tympanic membranes intact, no evidence of middle ear fluid or other pathology. Nose: External nose appears to be normal Nares patent. Septal deviation to the right No evidence of polyp, mass or pus bilaterally. Oral Cavity: No evidence of trismus Lips appear normal Dental good Tongue of normal size and configuration, floor of mouth mucosa clear. Buccal mucosa shows no evidence of ulceration, mass or other abnormality Hard palate soft palate mucosa intact with no evidence of mass, ulceration or other abnormality Uvula of normal size and configuration Oropharynx: Tonsils absence Posterior pharyngeal wall normal Nothing suggestive of tumor in the oropharynx or oral cavity Neck: No evidence of palpable abnormality Thyroid without evidence of thyromegaly or mass. No cervical lymphadenopathy present. Cardiovascular: Rate and Rhythm: Normal rate and regular rhythm. . Skin: General: Skin is warm and dry. Neurological: General: No focal deficit present. Mental Status: alert and oriented to person, place, and time. Assessment/Plan Scarlet was seen today for cancer. Diagnoses and all orders for this visit: 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/HCC) (Primary) Comments: There is no clinical evidence of recurrence, I will see him back in 6 weeks Salivary gland cancer (CMS/HCC) Comments: The primary tumor is yet to be discovered documented in this encounter [facility] 08-06-2024 Telephone encounter Note Paige, pt's , notified of Dr. Taylor's recommendation. She denies questions at this time. JUDY Carranza Saju, MD sent to Denisse Ervin RN Cc: Sahra Infante RN Please let the Garlandtrevins' know that TSH value is within range and he should continue thyroid function assessment with his annual bloodwork with his PCP. Thanks! Yosef [facility] 08-06-2024 Miscellaneous Notes Paige, pt's , notified of Dr. Taylor's recommendation. She denies questions at this time. JUDY Carranza Saju, MD sent to Denisse Ervin RN Cc: Sahra Infante RN Please let the Leylas' know that TSH value is within range and he should continue thyroid function assessment with his annual bloodwork with his PCP. Thanks! Yosef documented in this encounter [facility] 08-05-2024 Note HNO ID: [id number] Author: YOSEF TAYLOR MD Service: ? Author Type: Physician Type: Progress Notes Filed: 10/08/2024 00:08 Note Text: Radiation Oncology - Follow Up Note PATIENT NAME: Scarlet Mayer PATIENT DIAGNOSIS/PATIENT IDENTIFICATION: Mr. 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 He completed adjuvant radiotherapy to the right neck (60Gy/30) on 05/10/21. He developed recurrence in the LEFT neck and underwent left lingual tonsillectomy, left 1A-5 neck dissection (2/15 nodes, up to 2.6cm, no definite RAJIV) on 02/23/24. He met with the head and neck team at [facility] with recommendation to proceed to post-operative radiation therapy to the left neck for local control which he completed on 05/23/2024 (6000 cGy delivered in 30 fractions). INTERVAL HISTORY: Mr. Mayer returns to clinic today for routine follow-up approximately three months after the completion of his radiation treatments and two months since his last visit on 06/21/2024. In the interim, initial posttreatment imaging with the CT of the neck and chest on 07/29/2024 showed expected posttreatment changes in the left neck with no concern for recurrent disease. Today he reports no pain or discomfort in the head and neck area but does feel that his left ear is little sensitive. His skin is recovered and uses a moisturizer occasionally with no new lumps or bumps in the neck or skin irritation/breakdown. He denies any sores or ulcers in the mouth and does note some dry mouth and altered taste. He is able to swallow well and able to eat most consistencies. He notes stable energy with good appetite and hydration stable weight. He does note some posttreatment swelling/edema in the central neck and he has been following with the lymphedema clinic. He met recently with Dr. Hill and had no concerns on clinical head and neck examination. ALLERGIES ALLERGIES No Known Allergies MEDICATIONS: Current Outpatient Medications: multivitamin tablet ibuprofen (MOTRIN) 200 mg tablet iv contrast (will be provided with radiology test) diphenhydrAMINE 12.5 mg/5 mL lidocaine visc 2% MAALOX 200-200-20 mg/5 mL oral liquid 1:1:1 (CPD) iv contrast (will be provided with radiology test) PHYSICAL EXAM: GENERAL: Middle-age gentleman sitting in chair in no acute distress. VITALS: BP 136/91 Pulse 67 Temp 97.6 Resp 16 Wt 226 lb 13.7 oz (102.9kg) SpO2 98% KPS: 90 HEENT: NC/AT, anicteric sclera HEART: S1S2 LUNGS: non-labored breathing ABDOMEN: soft MUSCULOSKELETAL: no peripheral edema, moves all extremities. NEURO: no focal deficit; AANDO X3. RADIOLOGIC DATA: CT Neck (07/29/2024) IMPRESSION: New soft tissue reticulated stranding in the left submental region, overlying skin thickening and thickening of the left platysma muscle. There is also new asymmetric edema/soft tissue prominence at the left aryepiglottic fold. Findings could be related to progressive radiation-induced changes from the prior examination. No clear new soft tissue mass otherwise within the constraints of motion through the lower oropharynx and upper hypopharynx. No new or evolving suspicious adenopathy by size criteria. CT Chest (07/29/2024) IMPRESSION: 1. Stable CT of the chest. Unchanged appearance of left upper lobe nodules measuring up to 2 mm. No new or enlarging nodules are seen. 2. No evidence of intrathoracic lymphadenopathy. ASSESSMENT AND PLAN: Mr. 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 He completed adjuvant radiotherapy to the right neck (60Gy/30) on 05/10/21. He developed recurrence in the LEFT neck and underwent left lingual tonsillectomy, left 1A-5 neck dissection (2/15 nodes, up to 2.6cm, no definite RAJIV) on 02/23/24. He met with the head and neck team at [facility] with recommendation to proceed to post-operative radiation therapy to the left neck for local control which he completed on 05/23/2024 (6000 cGy delivered in 30 fractions). Mr. Mayer is doing as expected approximately 3 months after completion of his postoperative radiation treatments to the left head and neck having recovered from the majority of the acute toxicities of therapy. Initial posttreatment imaging with CT neck and chest from 1215 2 4 showed expected no radiographic concern for disease recurrence. He also had reassuring clinical head and neck examination by Dr. Hill recently. I will plan t (more content not included)... [facility] 08-05-2024 History of Present illness Narrative Radiation Oncology - Follow Up Note PATIENT NAME: Scarlet Mayer PATIENT Signed by: Yosef Taylor MD I spent a total of 20 minutes on the date of the service which included preparing to see the patient, [id number] patient care, and counseling and educating the patient/family/caregiver. This document has been created with the use of voice recognition technology. It may contain inaccuracies, misspellings, inaccurate syntax or inappropriate word context that are a result of the inadequacies/shortcomings of said technology/software. documented in this encounter [facility] 07-29-2024 History of Present illness Narrative Radiology Service Progress Note DATE OF SERVICE: July 29, 2024 TIME: 9:40 AM PATIENT WEIGHT: 226LBS PATIENT IDENTITY VERIFICATION COMPLETED USING TWO (2) STANDARD IDENTIFIERS: Name and Date of confirmed by patient verbally. FALL SCREENING: Has the patient had 2 falls in the last year or 1 fall with injury or currently using an Ambulatory Assistive Device (Walker, Cane, Wheelchair, Crutches, etc.)? No PATIENT GENDER DATA: Male ALLERGIES: Reviewed and unchanged CONTRAST ALLERGY: No EXAM: CT -CONTRAST INDUCED NEPHROPATHY RISK FACTORS: Not applicable CREATININE: Creatinine Date Value Ref Range Status 07/16/2021 1.10 0.73 - 1.22 mg/dL Final 02/18/2021 1.09 0.73 - 1.22 mg/dL Final eGFR-All Other Races Date Value Ref Range Status 07/16/2021 >60 . Final Comment: eGFR (Estimated GFR) Units of measure: mL/min/1.73 meters squared eGFR is derived from the reexpressed MDRD Study equation using the following parameters: serum creatinine, age, gender and race. The creatinine assay has been calibrated to be traceable to IDMS. An eGFR <60 mL/min/1.73m2 for >3 months is consistent with chronic kidney disease. Refer to KDOQI guidelines for clinical interpretation. In patients with unstable renal function, e.g. those with acute kidney injury, the eGFR may not accurately reflect actual GFR. Note: On 10/09/2021, the eGFR calculation will be updated to the NKF-ASN Task Force recommended 2020 CKD-EPI creatinine equation which does not include a race variable. For more information or to access a 2020 CKD-EPI calculator, visit the National [employer] website at kidney.org/professionals/kdoqi/gf r_calculator. eGFR- Date Value Ref Range Status 07/16/2021 >60 Final P.O.C.T. RESULTS: POC done: Yes, See Lab Tab July 29, 2024 TREATMENT: No Hydration needed. IV SITE: Ambulatory: A peripheral IV was started in the Right antecubital site with a Angio cath: 20 gauge. IV SITE APPEARANCE: Clean,Dry and Intact SIGNATURE: Kika Chatman RN PATIENT NAME: Scarlet Mayer DATE: July 29, 2024 TIME: 9:40 AM Radiology Service Progress Note PATIENT NAME: Scarlet Mayer DATE OF SERVICE: July 29, 2024 TIME: 9:28 AM PATIENT IDENTITY VERIFICATION COMPLETED USING TWO (2) IDENTIFIERS: Name and Date of confirmed by patient verbally. FALL SCREENING: Has the patient had 2 falls in the last year or 1 fall with injury or currently using an Ambulatory Assistive Device (Walker, Cane, Wheelchair, Crutches, etc.)? No PATIENT GENDER DATA: Male PATIENT RELEVANT IMPLANT DATA REVIEWED: Not Applicable PATIENT PRESENTS WITH AN IMPLANTABLE OR ATTACHED ENTERTAINER & COMIC: No RADIOLOGY DEPARTMENT: CT; Exam(s) Completed: Chest and Neck PERIPHERAL IV DATA: Site assessment: Clean,Dry and Intact, Site disposition Discontinued SIGNED BY: RT Lianne(R) July 29, 2024 9:28 AM documented in this encounter [facility] 07-29-2024 Note HNO ID: [id number] Author: KIKA CHATMAN RN Service: ? Author Type: Registered Nurse Type: Progress Notes Filed: 07/29/2024 09:40 Note Text: Radiology Service Progress Note DATE OF SERVICE: July 29, 2024 TIME: 9:40 AM PATIENT WEIGHT: 226LBS PATIENT IDENTITY VERIFICATION COMPLETED USING TWO (2) STANDARD IDENTIFIERS: Name and Date of confirmed by patient verbally. FALL SCREENING: Has the patient had 2 falls in the last year or 1 fall with injury or currently using an Ambulatory Assistive Device (Walker, Cane, Wheelchair, Crutches, etc.)? No PATIENT GENDER DATA: Male ALLERGIES: Reviewed and unchanged CONTRAST ALLERGY: No EXAM: CT -CONTRAST INDUCED NEPHROPATHY RISK FACTORS: Not applicable CREATININE: Creatinine Date Value Ref Range Status 07/16/2021 1.10 0.73 - 1.22 mg/dL Final 02/18/2021 1.09 0.73 - 1.22 mg/dL Final eGFR-All Other Races Date Value Ref Range Status 07/16/2021 >60 . Final Comment: eGFR (Estimated GFR) Units of measure: mL/min/1.73 meters squared eGFR is derived from the reexpressed MDRD Study equation using the following parameters: serum creatinine, age, gender and race. The creatinine assay has been calibrated to be traceable to IDMS. An eGFR <60 mL/min/1.73m2 for >3 months is consistent with chronic kidney disease. Refer to KDOQI guidelines for clinical interpretation. In patients with unstable renal function, e.g. those with acute kidney injury, the eGFR may not accurately reflect actual GFR. Note: On 10/09/2021, the eGFR calculation will be updated to the NKF-ASN Task Force recommended 2020 CKD-EPI creatinine equation which does not include a race variable. For more information or to access a 2020 CKD-EPI calculator, visit the National Kidney [employer] website at kidney.org/professionals/kdoqi/gf r_calculator. eGFR- Date Value Ref Range Status 07/16/2021 >60 Final P.O.C.T. RESULTS: POC done: Yes, See Lab Tab July 29, 2024 TREATMENT: No Hydration needed. IV SITE: Ambulatory: A peripheral IV was started in the Right antecubital site with a Angio cath: 20 gauge. IV SITE APPEARANCE: Clean,Dry and Intact SIGNATURE: Kika Chatman RN PATIENT NAME: Scarlet Mayer DATE: July 29, 2024 TIME: 9:40 AM [facility] 07-29-2024 Note HNO ID: [id number] Author: MIS ROJAS RT(R) Service: ? Author Type: Technologist Type: Progress Notes Filed: 07/29/2024 10:36 Note Text: Radiology Service Progress Note PATIENT NAME: Scarlet Mayer DATE OF SERVICE: July 29, 2024 TIME: 9:28 AM PATIENT IDENTITY VERIFICATION COMPLETED USING TWO (2) IDENTIFIERS: Name and Date of confirmed by patient verbally. FALL SCREENING: Has the patient had 2 falls in the last year or 1 fall with injury or currently using an Ambulatory Assistive Device (Walker, Cane, Wheelchair, Crutches, etc.)? No PATIENT GENDER DATA: Male PATIENT RELEVANT IMPLANT DATA REVIEWED: Not Applicable PATIENT PRESENTS WITH AN IMPLANTABLE OR ATTACHED ENTERTAINER & COMIC: No RADIOLOGY DEPARTMENT: CT; Exam(s) Completed: Chest and Neck PERIPHERAL IV DATA: Site assessment: Clean,Dry and Intact, Site disposition Discontinued SIGNED BY: RT Lianne(R) July 29, 2024 9:28 AM [facility] 07-25-2024 Telephone encounter Note Received forms from [employer] for [employer] for patient, however this pt is followed by a provider in [place], not seen by our office in 3 yrs. Requested that [employer] forward their request to his current provider. Neha Hines APRN.[employer] [facility] Work Phone: 07-25-2024 Miscellaneous Notes Received forms from [employer] for [employer] for patient, however this pt is followed by a provider in [place], not seen by our office in 3 yrs. Requested that [employer] forward their request to his current provider. Neha Hines APRN.[employer] SPO[employer]ER documented in this encounter [facility] 07-17-2024 Note HNO ID: [id number] Author: KOMAL MENDOZA OTR/Toby Service: ? Author Type: Occupational Therapist Type: Progress Notes Filed: 07/17/2024 12:27 Note Text: Episode Visit Count: 8 Therapist That Will Accept/Oversee The Plan Of Care: Rigoberto Start of Care Date: 03/28/24 Onset Date: 03/18/24 Patient Identified by Name and Date of : Yes REHABILITATION AND SPORTS THERAPY OCCUPATIONAL THERAPY TREATMENT NOTE ASSESSMENT: Scarlet Mayer tolerated the session with no issues. He demonstrated improvements in HANDN lymphedema home self mgmt - trying to wear his garment more. Pt will be having a home pump demo at his house in near future ([employer] HANDN pump) . Pt and have many tools for MLD and scar mgmt. Pt performing HANDN stretching and decongestive exer. OT/pt agreed to follow up in 6-8 weeks(lymphedema surveillance) In meantime, home program is in place The patient will continue to benefit from ongoing skilled occupational therapy to progress toward set goals. Total Number of Visits Planned: 1 (follow up 6-8 weeks for lymphedema surveillance) Planned Treatment Interventions: Therapeutic exercise (55459), Manual therapy (27359), Self-halfway management (01306) PLAN FOR NEXT VISIT: take measurements - upgrade or modifiy home program - did pt get home pump? SUBJECTIVE: approx 5 months S/P surgery, approx 7 weeks post radiaton. Pt here with suppostive who assists with MLD Pt trying to wear HANDN garment more - even at night. Pt reports my neck refills so quickly once garment removed Pain: Pain Pain Level: 0 OBJECTIVE MEASURES WITH LEVEL OF FUNCTION: scar more mobile and pt responds to MLD and compression TREATMENT: Therapeutic Exercise: 1: pt performed HANDN stretching exer and decongestive exer 2: reviewed diaphrmiatic breathing exer and pt performed 3: B shoulder elevation exer - do in mirror for symmetry 4: axillary exer for improved drainage Skilled Intervention: Skilled judgment was used in selection of appropriate interventions. Correct performance of therapeutic exercises was facilitated with verbal, visual, and tactile cuing. Manual Therapy Lymphedema: 1: MLD HANDN sequence- after diaphrmatic breathing, axillary and supraclvicular LN opening - anterior approach 2: scar massage and MLD with neck stretch - added dycem for pt and to use at home for extra traction and skin stretch while performing scar mobs 3: intraoral massage L side of face - cheek 4: OT made tubigrip compression to pair with HANDN mask - to add compresison to face - cheek - DAY WEAR ONLY - monitor symptoms - wear, care and precautions reviewed with pt and Skilled Intervention: Manual skills to improve joint mobility, ROM, and decrease pain. Utilized anatomy knowledge of the therapist, and assessment of patient's response to intervention. Increase lymphatic fluid dynamics, increase skin extensibility and normalize sensation. Billing Therapeutic Exercise Treatment Minutes: 15 Manual Therapy Treatment Minutes: 40 Skilled Treatment Time Minutes (timed and untimed codes): 55 Total Session Time (minutes): 55 Session Start Time : 1105 Session Stop Time : 1200 Komal Mendoza OTR/L [facility] 07-17-2024 History of Present illness Narrative Episode Visit Count: 8 Therapist That Will Accept/Oversee The Plan Of Care: Rigoberto Start of Care Date: 03/28/24 Onset Date: 03/18/24 Patient Identified by Name and Date of : Yes REHABILITATION AND SPORTS THERAPY OCCUPATIONAL THERAPY TREATMENT NOTE ASSESSMENT: Scarlet Mayer tolerated the session with no issues. He demonstrated improvements in H&N lymphedema home self mgmt - trying to wear his garment more. Pt will be having a home pump demo at his house in near future ([employer] H[employer] pump) . Pt and have many tools for MLD and scar mgmt. Pt performing H&N stretching and decongestive exer. OT/pt agreed to follow up in 6-8 weeks(lymphedema surveillance) In meantime, home program is in place The patient will continue to benefit from ongoing skilled occupational therapy to progress toward set goals. Total Number of Visits Planned: 1 (follow up 6-8 weeks for lymphedema surveillance) Planned Treatment Interventions: Therapeutic exercise (64352), Manual therapy (89992), Self-halfway management (61365) PLAN FOR NEXT VISIT: take measurements - upgrade or modifiy home program - did pt get home pump? SUBJECTIVE: approx 5 months S/P surgery, approx 7 weeks post radiaton. Pt here with suppostive who assists with MLD Pt trying to wear H&N garment more - even at night. Pt reports my neck refills so quickly once garment removed Pain: Pain Pain Level: 0 OBJECTIVE MEASURES WITH LEVEL OF FUNCTION: scar more mobile and pt responds to MLD and compression TREATMENT: Therapeutic Exercise: 1: pt performed H&N stretching exer and decongestive exer 2: reviewed diaphrmiatic breathing exer and pt performed 3: B shoulder elevation exer - do in mirror for symmetry 4: axillary exer for improved drainage Skilled Intervention: Skilled judgment was used in selection of appropriate interventions. Correct performance of therapeutic exercises was facilitated with verbal, visual, and tactile cuing. Manual Therapy Lymphedema: 1: MLD H&N sequence- after diaphrmatic breathing, axillary and supraclvicular LN opening - anterior approach 2: scar massage and MLD with neck stretch - added dycem for pt and to use at home for extra traction and skin stretch while performing scar mobs 3: intraoral massage L side of face - cheek 4: OT made tubigrip compression to pair with H&N mask - to add compresison to face - cheek - DAY WEAR ONLY - monitor symptoms - wear, care and precautions reviewed with pt and Skilled Intervention: Manual skills to improve joint mobility, ROM, and decrease pain. Utilized anatomy knowledge of the therapist, and assessment of patient's response to intervention. Increase lymphatic fluid dynamics, increase skin extensibility and normalize sensation. Billing Therapeutic Exercise Treatment Minutes: 15 Manual Therapy Treatment Minutes: 40 Skilled Treatment Time Minutes (timed and untimed codes): 55 Total Session Time (minutes): 55 Session Start Time : 1105 Session Stop Time : 1200 ROBERT Kerns documented in this encounter [facility] 07-10-2024 Note HNO ID: [id number] Author: KOMAL MENDOZA OTR/L Service: ? Author Type: Occupational Therapist Type: Progress Notes Filed: 07/10/2024 12:26 Note Text: Episode Visit Count: 7 Therapist That Will Accept/Oversee The Plan Of Care: Rigoberto Start of Care Date: 03/28/24 Onset Date: 03/18/24 Patient Identified by Name and Date of : Yes REHABILITATION AND SPORTS THERAPY OCCUPATIONAL THERAPY TREATMENT NOTE ASSESSMENT: Scarlet Mayer tolerated the session with no issues. He demonstrated improvements in HANDN swelling reduction and home self mgmt. Neck resection scar softening and pt wearing his HANDN garment more - trying to wear it at night for longer durations of time. L side intraoral cheek area slightly reduced - still problematic with chewing - pt to continue to self massage at home OT will follow next week then reduce visits to 1x/month as needed . The patient will continue to benefit from ongoing skilled occupational therapy to progress toward set goals. Total Number of Visits Planned: 1 (1 visit next week then follow 1x month for a few months as needed) Planned Treatment Interventions: Therapeutic exercise (73502), Manual therapy (99799), Self-halfway management (08459) PLAN FOR NEXT VISIT: how did pt tolerate the silicone gel sheet on neck scar? orange channel foam to L lateral neck scrar - for improved lateral neck drainage? SUBJECTIVE: approx 5 months S/P surgery, neck resection and 6 weeks post radiaiton. Pt reported a litte skin sensitivity with Ktape use, pt is trying to wear the HANDN garment at night more. Pt is trying to resume pre- surgery gym workouts. Pt ate [employer] last week and still chews cheek - overall improving Pain: Pain Pain Level: 0 Post Treatment Pain Post Treatment Pain Level: 0 OBJECTIVE MEASURES WITH LEVEL OF FUNCTION: Head rotation improving to R and to L - still some end range tightness to be expected due to radiation deep neck flexors slightly weak - adding this to home program will help with strengt, gym work outs with overhead press and lympathic filtration Head and Neck Measurements Superior Neck (cm): 48.6 cm Middle Neck (cm): 44.3 cm Inferior Neck (cm): 41.5 cm TREATMENT: Therapeutic Exercise: 1: added deep neck flexor exer 2 sets of 10 supine on mat - add to home program - do not overdo and not to cause pain 2: HBH performed supine on mat - added to HEP 3: HBH with lateral trunk rotation performed supine on mat - added to HEP 4: chest opening exer supine on mat - can combine with lateral trunk rotation 5: AAROM FF supine on mat - hold end stretch x 10 sec 6: FF end stretch in doorway - can add to HEP 7: corner wall stretch added to HEP 8: some of the above end range stretches to increase stretch to surrounding radiated tissue Skilled Intervention: Skilled judgment was used in selection of appropriate interventions. Correct performance of therapeutic exercises was facilitated with verbal, visual, and tactile cuing. Manual Therapy Lymphedema: 1: MLD HANDN sequence- after diaphrmatic breathing, axillary and supraclvicular LN opening - anterior approach 2: scar massage and MLD with neck stretch 3: intraoral massage L side of face - cheek Skilled Intervention: Manual skills to improve joint mobility, ROM, and decrease pain. Utilized anatomy knowledge of the therapist, and assessment of patient's response to intervention. Increase lymphatic fluid dynamics, increase skin extensibility and normalize sensation. Billing Therapeutic Exercise Treatment Minutes: 25 Manual Therapy Treatment Minutes: 35 Total Session Time (minutes): 60 Session Start Time : 1100 Session Stop Time : 1200 Komal Mendoza, OTR/L [facility] 07-10-2024 History of Present illness Narrative Episode Visit Count: 7 Therapist That Will Accept/Oversee The Plan Of Care: Rigoberto Start of Care Date: 03/28/24 Onset Date: 03/18/24 Patient Identified by Name and Date of : Yes REHABILITATION AND SPORTS THERAPY OCCUPATIONAL THERAPY TREATMENT NOTE ASSESSMENT: Scarlet Mayer tolerated the session with no issues. He demonstrated improvements in H&N swelling reduction and home self mgmt. Neck resection scar softening and pt wearing his H&N garment more - trying to wear it at night for longer durations of time. L side intraoral cheek area slightly reduced - still problematic with chewing - pt to continue to self massage at home OT will follow next week then reduce visits to 1x/month as needed . The patient will continue to benefit from ongoing skilled occupational therapy to progress toward set goals. Total Number of Visits Planned: 1 (1 visit next week then follow 1x month for a few months as needed) Planned Treatment Interventions: Therapeutic exercise (09709), Manual therapy (89364), Self-halfway management (92045) PLAN FOR NEXT VISIT: how did pt tolerate the silicone gel sheet on neck scar? orange channel foam to L lateral neck scrar - for improved lateral neck drainage? SUBJECTIVE: approx 5 months S/P surgery, neck resection and 6 weeks post radiaiton. Pt reported a litte skin sensitivity with Ktape use, pt is trying to wear the H&N garment at night more. Pt is trying to resume pre- surgery gym workouts. Pt ate [employer] last week and still chews cheek - overall improving Pain: Pain Pain Level: 0 Post Treatment Pain Post Treatment Pain Level: 0 OBJECTIVE MEASURES WITH LEVEL OF FUNCTION: Head rotation improving to R and to L - still some end range tightness to be expected due to radiation deep neck flexors slightly weak - adding this to home program will help with strengt, gym work outs with overhead press and lympathic filtration Head and Neck Measurements Superior Neck (cm): 48.6 cm Middle Neck (cm): 44.3 cm Inferior Neck (cm): 41.5 cm TREATMENT: Therapeutic Exercise: 1: added deep neck flexor exer 2 sets of 10 supine on mat - add to home program - do not overdo and not to cause pain 2: HBH performed supine on mat - added to HEP 3: HBH with lateral trunk rotation performed supine on mat - added to HEP 4: chest opening exer supine on mat - can combine with lateral trunk rotation 5: AAROM FF supine on mat - hold end stretch x 10 sec 6: FF end stretch in doorway - can add to HEP 7: corner wall stretch added to HEP 8: some of the above end range stretches to increase stretch to surrounding radiated tissue Skilled Intervention: Skilled judgment was used in selection of appropriate interventions. Correct performance of therapeutic exercises was facilitated with verbal, visual, and tactile cuing. Manual Therapy Lymphedema: 1: MLD H&N sequence- after diaphrmatic breathing, axillary and supraclvicular LN opening - anterior approach 2: scar massage and MLD with neck stretch 3: intraoral massage L side of face - cheek Skilled Intervention: Manual skills to improve joint mobility, ROM, and decrease pain. Utilized anatomy knowledge of the therapist, and assessment of patient's response to intervention. Increase lymphatic fluid dynamics, increase skin extensibility and normalize sensation. Billing Therapeutic Exercise Treatment Minutes: 25 Manual Therapy Treatment Minutes: 35 Total Session Time (minutes): 60 Session Start Time : 1100 Session Stop Time : 1200 LENY Kerns/Toby documented in this encounter [facility] 07-04-2024 Telephone encounter Note Signed - thanks! Yosef [facility] 07-04-2024 Miscellaneous Notes Signed - thanks! Yosef Please sign pended CT orders Thank You! Edwardo Garcia, RN documented in this encounter [facility] 07-04-2024 Telephone encounter Note Please sign pended CT orders Thank You! Edwardo Garcia RN [facility] 07-03-2024 Note HNO ID: [id number] Author: KOMAL MENDOZA OTR/Toby Service: ? Author Type: Occupational Therapist Type: Progress Notes Filed: 07/03/2024 12:48 Note Text: Episode Visit Count: 6 Therapist That Will Accept/Oversee The Plan Of Care: Rigoberto Start of Care Date: 03/28/24 Onset Date: 03/18/24 Patient Identified by Name and Date of : Yes REHABILITATION AND SPORTS THERAPY OCCUPATIONAL THERAPY TREATMENT NOTE ASSESSMENT: Scarlet Mayer tolerated the session with no issues. He demonstrated improvements in neck area less hypersensitive, skin tissue healing from radiatio. Pt now wearing his HANDN garment up to 4-5 hours/day - OT encouraging longer durations of wear - try nighttime. OT offered Kin[employer] and suggests silicone gel sheets for other options to manage scar and swelling . The patient will continue to benefit from ongoing skilled occupational therapy to progress toward set goals. Total Number of Visits Planned: 3 Planned Treatment Interventions: Therapeutic exercise (66686), Manual therapy (99091), Self-halfway management (57709) PLAN FOR NEXT VISIT: how did pt tolerate the K tape? did they purchase silicone gel sheets? MLD HAND N and intra-oral - progress home program - pump trial SUBJECTIVE: 18 weeks S/P and 5 weeks post radiaiton. Pt reports L side of neck/ear area a little less hypersensitive. Pt is wearing the HAND N garment 4-5 hours day (not at night) Pain: Pain Pain Level: 0 Post Treatment Pain Post Treatment Pain Level: 0 OBJECTIVE MEASURES WITH LEVEL OF FUNCTION: SCAR - less sensitive less tight SWELLING - submental and L cheek still persists ROM of head/neck less tight TREATMENT: Manual Therapy Lymphedema: 1: MLD HANDN sequence- after diaphrmatic breathing, axillary and supraclvicular LN opening - anterior approach 2: scar massage and MLD with neck stretch 3: intraoral massage L side of face - cheek Skilled Intervention: Manual skills to improve joint mobility, ROM, and decrease pain. Utilized anatomy knowledge of the therapist, and assessment of patient's response to intervention. Increase lymphatic fluid dynamics, increase skin extensibility and normalize sensation. Self-Senior Care Management: 1: encouraged longer duration of HANDN garment wear - try overnight 2: discussed using silicone gel sheets for scar - pt to purchase on [employer] 3: OT applied kinesiotape to submental and L side cheek swelling - cautious due to radiated skin - pt to trial fro a few hours - remove carefully with olive oil - monitor skin 4: discussed HAND N pump - pt/ would like to go ahead and pursue trial and see if insurance will cover - OT will send demongraphics to [facility] Medical rep - Maryam Rasmussen Skilled Intervention: Reviewed patient specific diagnosis in relation to activities of daily living/home management. Activity progression based on professional judgement. Billing Manual Therapy Treatment Minutes: 40 Self-Care/Home Management Treatment Minutes: 15 Skilled Treatment Time Minutes (timed and untimed codes): 55 Total Session Time (minutes): 55 Session Start Time : 1105 Session Stop Time : 1200 Komal Mendoza OTR/L [facility] 07-03-2024 History of Present illness Narrative Episode Visit Count: 6 Therapist That Will Accept/Oversee The Plan Of Care: Rigoberto Start of Care Date: 03/28/24 Onset Date: 03/18/24 Patient Identified by Name and Date of : Yes REHABILITATION AND SPORTS THERAPY OCCUPATIONAL THERAPY TREATMENT NOTE ASSESSMENT: Scarlet Mayer tolerated the session with no issues. He demonstrated improvements in neck area less hypersensitive, skin tissue healing from radiatio. Pt now wearing his H&N garment up to 4-5 hours/day - OT encouraging longer durations of wear - try nighttime. OT offered Kiniesotape and suggests silicone gel sheets for other options to manage scar and swelling . The patient will continue to benefit from ongoing skilled occupational therapy to progress toward set goals. Total Number of Visits Planned: 3 Planned Treatment Interventions: Therapeutic exercise (58652), Manual therapy (47885), Self-halfway management (58352) PLAN FOR NEXT VISIT: how did pt tolerate the K tape? did they purchase silicone gel sheets? MLD H& N and intra-oral - progress home program - pump trial SUBJECTIVE: 18 weeks S/P and 5 weeks post radiaiton. Pt reports L side of neck/ear area a little less hypersensitive. Pt is wearing the H& N garment 4-5 hours day (not at night) Pain: Pain Pain Level: 0 Post Treatment Pain Post Treatment Pain Level: 0 OBJECTIVE MEASURES WITH LEVEL OF FUNCTION: SCAR - less sensitive less tight SWELLING - submental and L cheek still persists ROM of head/neck less tight TREATMENT: Manual Therapy Lymphedema: 1: MLD H&N sequence- after diaphrmatic breathing, axillary and supraclvicular LN opening - anterior approach 2: scar massage and MLD with neck stretch 3: intraoral massage L side of face - cheek Skilled Intervention: Manual skills to improve joint mobility, ROM, and decrease pain. Utilized anatomy knowledge of the therapist, and assessment of patient's response to intervention. Increase lymphatic fluid dynamics, increase skin extensibility and normalize sensation. Self-Senior Care Management: 1: encouraged longer duration of H&N garment wear - try overnight 2: discussed using silicone gel sheets for scar - pt to purchase on [employer] 3: OT applied kinesiotape to submental and L side cheek swelling - cautious due to radiated skin - pt to trial fro a few hours - remove carefully with olive oil - monitor skin 4: discussed H& N pump - pt/ would like to go ahead and pursue trial and see if insurance will cover - OT will send demongraphics to [facility] Medical rep - Maryam Rasmussen Skilled Intervention: Reviewed patient specific diagnosis in relation to activities of daily living/home management. Activity progression based on professional judgement. Billing Manual Therapy Treatment Minutes: 40 Self-Care/Home Management Treatment Minutes: 15 Skilled Treatment Time Minutes (timed and untimed codes): 55 Total Session Time (minutes): 55 Session Start Time : 1105 Session Stop Time : 1200 Komal Lipaj, OTR/L documented in this encounter [facility] 07-02-2024 Telephone encounter Note Wouldn't expect night sweats routinely after radiation therapy to the head and neck. If they persist, would have him come in for routine labs (CBC, CMP) and a TSH/T4 either or Monday. Thanks! Yosef [facility] 07-02-2024 Miscellaneous Notes Wouldn't expect night sweats routinely after radiation therapy to the head and neck. If they persist, would have him come in for routine labs (CBC, CMP) and a TSH/T4 either or Monday. Thanks! Yosef documented in this encounter [facility] 07-01-2024 History of Present illness Narrative Subjective Patient ID: HPI Patient presents today for cancer surveillance. Continues to do well. 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 Review of Systems ROS The specialty specific review of systems is noncontributory except for that recorded in the intake questionnaire and /or described in the history of present illness. Objective ENT Physical Exam Physical Exam Constitutional: Appearance: Normal appearance. HENT: Head: Atraumatic. Ears: External ear shows no abnormality Bilateral ear canals are clear Tympanic membranes intact, no evidence of middle ear fluid or other pathology. Nose: External nose appears to be normal Nares patent. Septal deviation to the right No evidence of polyp, mass or pus bilaterally. Oral Cavity: No evidence of trismus Lips appear normal Dental good Tongue of normal size and configuration, floor of mouth mucosa clear. Buccal mucosa shows no evidence of ulceration, mass or other abnormality Hard palate soft palate mucosa intact with no evidence of mass, ulceration or other abnormality Uvula of normal size and configuration Oropharynx: Tonsils absent Posterior pharyngeal wall normal Neck: No evidence of palpable abnormality Thyroid without evidence of thyromegaly or mass. No cervical lymphadenopathy present. Cardiovascular: Rate and Rhythm: Normal rate and regular rhythm. . Skin: General: Skin is warm and dry. Neurological: General: No focal deficit present. Mental Status: alert and oriented to person, place, and time. Assessment/Plan Scarlet was seen today for cancer. 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) Comments: Patient is scheduled for surveillance CT scans with Oncology in the near future documented in this encounter [facility] 06-26-2024 History of Present illness Narrative Episode Visit Count: 5 Therapist That Will Accept/Oversee The Plan Of Care: rigoberto Start of Care Date: 03/28/24 Onset Date: 03/18/24 Patient Identified by Name and Date of : Yes REHABILITATION AND SPORTS THERAPY OCCUPATIONAL THERAPY PROGRESS REPORT PLAN OF CARE UPDATE: Assessment: Scarlet Mayer demonstrates difficulty with H&N tightness, external and internal lymphedema - worse since completed radiation. Pt will benefit from OT/lymphedema therapy for MLD, scar and tissue massage - adding the H&N daily consistent compression garment wear. Pt may also benefit from a home H& N pump - [employer] pump for home self mgmt. OT will check with rep for possible in clinic trail and insurance auth The patient has progressed toward goals. Patient continues to present with impairments in edema management, overall function, range of motion, symptom management, and tissue tenderness that interfere with . Current prognosis is Good due to: current objective clinical presentation, within-session changes, positive past response to therapy . The patient will benefit from continued skilled therapy services to meet the updated goals for this plan of care as noted below. PLAN FOR NEXT VISIT: MLD H& N and intra-oral - progress home program - pump trial Updated goals on 06/26/2024 Goals for Episode of Care created on 03/28/24 through 05/23/24,extended on 06/26/2024 - 09/26/2023 and beyond Pt to work on ALL ONGOING goals below Patient will increase pain free neck AROM by 5 deg to allow for neutral postural alignment, improved performance with ADL/IADL- ONGOING - in progress Patient will increase mandibular AROM equal to or greater than 50 mm in order to be able to open mouth for oral hygiene and dental procedures.ONGOING - MOSTLY MEETING - some L cheek swelling noted today intraoral Patient will demonstrate independence with home exercise program including self MLD, compression wrap/garment, desensitization, skin care guidelines, scar massage, ROM and strengthening exercises. ONGOING Patient will decrease Neck Composite Score by 2% or greater for decreased risk of infection, improved rom and posture. ONGOING - set back from radiation Patient Goals: manage swelling and tightness Patient Goals: manage swelling and tightness Planned Interventions, Frequency, and Duration: , Total Number of Visits Planned: 4 (4-6 as needed to perform MLD, scar mgmt, progress home program - possible H&N pump trial) Planned Treatment Interventions: Therapeutic exercise (69275), Manual therapy (53156), Self-halfway management (86963) PLAN FOR NEXT VISIT: MLD H& N and intra-oral - progress home program - pump trial SUBJECTIVE: 17 weeks S/P - pt completed radiaiton 05/23- pt had some skin dermatitis from radiation and [facility] was not able to perform exer, massage and or compression during that time. Skin now healed and pt/ here today to resume lymphedema therapy - pt reports neck swelling worse - pt brought L&R h&N compression garment for OT instruction Pain: Pain Pain Level: 0 Post Treatment Pain Post Treatment Pain Level: Better (neck swelling visually reduced and tissue less hard) PROMIS Scales 06/24/2024 04/25/2024 03/28/2024 Higher is Better Phys Func - Score 56 (within normal limits) 48 (within normal limits) 57 (within normal limits) Phys Func - Percentile 73 42 76 Self-Eff Symptom - Score 49 (Average) 48 (Average) 57 (Average) Self-Eff Symptom - Percentile 46 42 76 T-scores: mean of general population = 50. 5 points is clinically meaningfully difference Percentiles provide an indication of how the patient's score ranks in relation to the general population. Higher percentile rankings indicate better function/quality of life. 50th percentile is the average of the general population and indicates half of respondents had a worse score. OBJECTIVE MEASURES WITH LEVEL OF FUNCTION: AROM of head and neck - tightness noted at end range rotation and side bending due to radiation tightness - pt to continue diligent stretching each day SWALLOWING functional - dry mouth noted - pt to continue swallowing exer - especially with H&N compression wear SCAR - firm and hard - from radiation - medial scar hypersensitive Head and Neck Measurements Superior Neck (cm): 51 cm Middle Neck (cm): 47 cm Inferior Neck (cm): 42.1 cm TREATMENT: Manual Therapy Lymphedema: 1: MLD for H&N - beginning with diaphnratic breathing 10x, axillary nodes, supraclavicular open and activate - H&N anterior approach 2: scar massage 3: desensitizaton home progarm - hyersenstive area of neck - rationale and perfomance with massage and terrycloth 4: skin inpsection prior to above 5: intraoral massage to L cheek - performed and how to perform at home with pt/ Skilled Intervention: Manual skills to improve joint mobility, ROM, and decrease pain. Utilized anatomy knowledge of the therapist, and assessment of patient's response to intervention. Increase lymphatic fluid dynamics, increase skin extensibility and normalize sensation. Self-Senior Care Management: 1: measurements showing inc in neck measurements - to be expected post radiaition 2: reviewed and educated how to don the H&N compression garment - good fit - wear as often as possible day/night as tolerated - encouraged diligent wear as this will prevent refill 3: reinforced the improtance of MLD, scar massage, stretching and exercises - incl swallowing with the compression garement on - continue exer for many years to prevent tightening that can occur from radiation 4: discussed possible use of H&N compression pump - FLEXITOUCH - info provided online - OT will contact local rep for possible in clinic trial Skilled Intervention: Reviewed patient specific diagnosis in relation to activities of daily living/home management. Activity progression based on professional judgement. Billing Manual Therapy Treatment Minutes: 25 Self-Care/Home Management Treatment Minutes: 30 Skilled Treatment Time Minutes (timed and untimed codes): 55 Total Session Time (minutes): 55 Session Start Time : 904 Session Stop Time : 1000 ROBERT Kerns documented in this encounter [facility] 06-26-2024 Note HNO ID: [id number] Author: KOMAL MENDOZA OTR/L Service: ? Author Type: Occupational Therapist Type: Progress Notes Filed: 07/05/2024 15:32 Note Text: Episode Visit Count: 5 Therapist That Will Accept/Oversee The Plan Of Care: rigoberto Start of Care Date: 03/28/24 Onset Date: 03/18/24 Patient Identified by Name and Date of : Yes REHABILITATION AND SPORTS THERAPY OCCUPATIONAL THERAPY PROGRESS REPORT PLAN OF CARE UPDATE: Assessment: Scarlet Mayer demonstrates difficulty with HANDN lymphedema I89.0 due to Salivary gland Ca C08.9. HANDN tightness, external and internal lymphedema - worse since completed radiation. Pt has been in conservative therapy since 03/28/2024 - he has been compliant with elevation, exercises, compression and home program. Pt will benefit from continued OT/lymphedema therapy for MLD, scar and tissue massage. Pt may also benefit from a home HAND N pump - the advanced pump by [employer] pump for home self mgmt. The basic pump [id number] is inappropriate due to the HANDN lymphedema diagnosis. A basic pump does not exist for the HANDN. Pt has persistent swelling and the Advanced Flexitouch Pneumatic compression device is the ONLY pump that currently exists and is recommended as an additional modality to manage HANDN lymphedema on a residential basis to prevent further deterioration, fibrotic scar tissue manage internal and external swelling. OT will check with rep for possible in clinic trail and insurance auth The patient has progressed slowly toward goals. Patient continues to present with impairments in edema management, overall function, range of motion, symptom management, and tissue tenderness that interfere with . Current prognosis is Good due to: current objective clinical presentation, within-session changes, positive past response to therapy . The patient will benefit from continued skilled therapy services to meet the updated goals for this plan of care as noted below. PLAN FOR NEXT VISIT: MLD HAND N and intra-oral - progress home program - pump trial Updated goals on 06/26/2024 Goals for Episode of Care created on 03/28/24 through 05/23/24,extended on 06/26/2024 - 09/26/2023 and beyond Pt to work on ALL ONGOING goals below Patient will increase pain free neck AROM by 5 deg to allow for neutral postural alignment, improved performance with ADL/IADL- ONGOING - in progress Patient will increase mandibular AROM equal to or greater than 50 mm in order to be able to open mouth for oral hygiene and dental procedures.ONGOING - MOSTLY MEETING - some L cheek swelling noted today intraoral Patient will demonstrate independence with home exercise program including self MLD, compression wrap/garment, desensitization, skin care guidelines, scar massage, ROM and strengthening exercises. ONGOING Patient will decrease Neck Composite Score by 2% or greater for decreased risk of infection, improved rom and posture. ONGOING - set back from radiation Patient Goals: manage swelling and tightness Patient Goals: manage swelling and tightness Planned Interventions, Frequency, and Duration: , Total Number of Visits Planned: 4 (4-6 as needed to perform MLD, scar mgmt, progress home program - possible HANDN pump trial) Planned Treatment Interventions: Therapeutic exercise (52002), Manual therapy (72493), Self-halfway management (46361) PLAN FOR NEXT VISIT: MLD HAND N and intra-oral - progress home program - pump trial SUBJECTIVE: 17 weeks S/P - pt completed radiaiton 05/23- pt had some skin dermatitis from radiation and [facility] was not able to perform exer, massage and or compression during that time. Skin now healed and pt/ here today to resume lymphedema therapy - pt reports neck swelling worse - pt brought LANDR hANDN compression garment for OT instruction Pain: Pain Pain Level: 0 Post Treatment Pain Post Treatment Pain Level: Better (neck swelling visually reduced and tissue less hard) PROMIS Scales 06/24/2024 04/25/2024 03/28/2024 Higher is Better Phys Func - Score 56 (within normal limits) 48 (within normal limits) 57 (within normal limits) Phys Func - Percentile 73 42 76 Self-Eff Symptom - Score 49 (Average) 48 (Average) 57 (Average) Self-Eff Symptom - Percentile 46 42 76 T-scores: mean of general population = 50. 5 points is clinically meaningfully difference Percentiles provide an indication of how the patient's score ranks in relation to the general population. Higher percentile rankings indicate better function/quality of life. 50th percentile is the average of the general population and indicates half of respondents had a worse score. OBJECTIVE MEASURES WITH LEVEL OF FUNCTION: AROM of head and neck - tightness noted at end range rotation and side bending due to radiation tightness - pt to continue diligent stretching each day SWALLOWING functional - dry mouth noted - pt to continue swallowing exer - e (more content not included)... [facility] 06-21-2024 Note HNO ID: [id number] Author: YOSEF TAYLOR MD Service: ? Author Type: Physician Type: Progress Notes Filed: 07/09/2024 04:32 Note Text: Radiation Oncology - Follow Up Note PATIENT NAME: Scarlet Mayer PATIENT DIAGNOSIS/PATIENT IDENTIFICATION: Mr. 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 He completed adjuvant radiotherapy to the right neck (60Gy/30) on 05/10/21. He developed recurrence in the LEFT neck and underwent left lingual tonsillectomy, left 1A-5 neck dissection (2/15 nodes, up to 2.6cm, no definite RAJIV) on 02/23/24. He met with the head and neck team at [facility] with recommendation to proceed to post-operative radiation therapy to the left neck for local control which he completed on 05/23/2024 (6000 cGy delivered in 30 fractions). Mr. Mayer returns to clinic today for routine follow-up approximately one month after the completion of his radiation treatments. In the interim, he notes improvement in his fatigue as he has been more active and has returned to work. His skin has healed with no breakdown but he does note some sensitivity in the area of the ear which also improves. He reports no pain or discomfort in the head and neck or any sores or ulcers in the mouth. He does have persistent dry mouth and has altered taste which is improving. He reports no voice changes and reports being able to swallow well without choking sensation. He notes he is able to eat most consistencies and reports improving appetite with good hydration and stable weight. At this point I will plan to see him back in approximately 6 to [address] of the neck and chest. He will follow with Dr. Hill as scheduled for continued clinical head and neck examination. The patient is aware to contact the clinic in the interim should any questions or concerns arise. Thank you for allowing us to participate in the care of this patient. Signed by: Yosef Taylor MD This document has been created with the use of voice recognition technology. It may contain inaccuracies, misspellings, inaccurate syntax or inappropriate word context that are a result of the inadequacies/shortcomings of said technology/software. [facility] 06-21-2024 History of Present illness Narrative Radiation Oncology - Follow Up Note PATIENT NAME: Scarlet Mayer PATIENT Signed by: Yosef Taylor MD This document has been created with the use of voice recognition technology. It may contain inaccuracies, misspellings, inaccurate syntax or inappropriate word context that are a result of the inadequacies/shortcomings of said technology/software. documented in this encounter [facility] 06-04-2024 Telephone encounter Note Thanks! Yosef [facility] 06-04-2024 Miscellaneous Notes Thanks! Yosef I called to get a post treatment update. Hiro is not home but I did speak Paige, spouse. She said last week was really rough but he is doing better this week. She said his skin reaction is improving. Left neck area is slightly red with dry desquamation. He is currently using OTC lotion to this area. She said he is maintaining his weight and possibly gained a couple pounds. He doesn't c/o dysphagia but does have a dry mouth. She is pushing Hiro to increase his oral fluid intake. She states he's very tired. He is taking Motrin 1-2 times daily. She said his ROM hasn't changed much since completing treatment. He still turns upper body instead of just his neck. They noticed swelling around his right clavicle and had Dr. Hill evaluate it last week during his scheduled follow up. She said Dr. Hill said it's most likely fluid but is not concerned. He has scheduled follow up with Dr. Hill in 6 weeks. He has scheduled follow up with Dr. Taylor 06/21/24 and lymphedema appointment 06/26/24. She feels his symptoms are improving. I encouraged her to have Hiro call with any concerns between now and his follow up. She is thankful for the care he received from our team. Denisse Ervin RN documented in this encounter [facility] 06-04-2024 Telephone encounter Note I called to get a post treatment update. Hiro is not home but I did speak Paige, spouse. She said last week was really rough but he is doing better this week. She said his skin reaction is improving. Left neck area is slightly red with dry desquamation. He is currently using OTC lotion to this area. She said he is maintaining his weight and possibly gained a couple pounds. He doesn't c/o dysphagia but does have a dry mouth. She is pushing Hiro to increase his oral fluid intake. She states he's very tired. He is taking Motrin 1-2 times daily. She said his ROM hasn't changed much since completing treatment. He still turns upper body instead of just his neck. They noticed swelling around his right clavicle and had Dr. Hill evaluate it last week during his scheduled follow up. She said Dr. Hill said it's most likely fluid but is not concerned. He has scheduled follow up with Dr. Hill in 6 weeks. He has scheduled follow up with Dr. Taylor 06/21/24 and lymphedema appointment 06/26/24. She feels his symptoms are improving. I encouraged her to have Hiro call with any concerns between now and his follow up. She is thankful for the care he received from our team. Denisse Ervin RN [facility] 05-27-2024 History of Present illness Narrative Subjective Patient ID: HPI Patient presents today for follow-up. 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 He just finished radiation therapy last . He has a pretty significant radiation dermatitis Review of Systems ROS The specialty specific review of systems is noncontributory except for that recorded in the intake questionnaire and /or described in the history of present illness. Objective ENT Physical Exam Physical Exam Constitutional: Appearance: Normal appearance. HENT: Head: Atraumatic. Ears: External ear shows no abnormality Bilateral ear canals are clear Tympanic membranes intact, no evidence of middle ear fluid or other pathology. Nose: External nose appears to be normal Nares patent. Septal deviation to the right No evidence of polyp, mass or pus bilaterally. Oral Cavity: No evidence of trismus Lips appear normal Dental good Tongue of normal size and configuration, floor of mouth mucosa clear. Buccal mucosa shows no evidence of ulceration, mass or other abnormality Hard palate soft palate mucosa intact with no evidence of mass, ulceration or other abnormality Uvula of normal size and configuration Oropharynx: Tonsils Posterior pharyngeal wall Neck: Postsurgical changes. Significant left radiation dermatitis. I gently palpated the area, no palpable abnormality. Cardiovascular: Rate and Rhythm: Normal rate and regular rhythm. . Skin: General: Skin is warm and dry. Neurological: General: No focal deficit present. Mental Status: alert and oriented to person, place, and time. Assessment/Plan Scarlet was seen today for cancer. 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 I will see him back in 6 weeks Salivary gland cancer (CMS/HCC) Comments: Primary tumor has never made itself known. documented in this encounter [facility] 05-23-2024 History of Present illness Narrative [facility] Radiation Oncology Department RADIATION ONCOLOGY - COMPLETION NOTE PATIENT: LAMBERT MAYER: 1975 DATES OF TREATMENT: 04/11/2024 to 05/23/2024 DIAGNOSIS: Mr. 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 He completed adjuvant radiotherapy to the right neck (60Gy/30) on 05/10/21. He developed recurrence in the LEFT neck and underwent left lingual tonsillectomy, left 1A-5 neck dissection (2/15 nodes, up to 2.6cm, no definite RAJIV) on 02/23/24. He met with the head and neck team at [facility] with recommendation to proceed to post-operative radiation therapy to the left neck for local control. AREA TREATED: Left Neck DELIVERED DOSE: 6,000 cGy in 30 fractions, 4 VMAT Rapid Arc [place], x06 with daily CBCT guidance TOTAL: 6,000 cGy delivered in 30 fractions ELAPSED TIME: 42 days. CLINICAL SUMMARY: The patient tolerated course of post-operative radiation therapy to the left neck well with treatment-related fatigue, dermatitis, dry mouth, and altered taste as expected. No other significant issues. The patient was able to complete treatment as intended without break interruption or modification of prescription plan. The patient will be evaluated in 2-3 weeks for postradiation follow-up with plans for initial post-treatment imaging in approximately 2 months. . Staff Physician Yosef Taylor M.D. / SOILA 2:33 AM Electronically Signed cc: Khadar Hill DO [address] [facility] [id number] [address] Tristian Pacheco MD [address] [place] [phone] [address] Santiago Villalba MD ([facility]) documented in this encounter [facility] 05-23-2024 Note HNO ID: [id number] Author: YOSEF TAYLOR MD Service: ? Author Type: Physician Type: Progress Notes Filed: 06/13/2024 00:33 Note Text: [facility] Radiation Oncology Department RADIATION ONCOLOGY - COMPLETION NOTE PATIENT: LAMBERT MAYER: 1975 DATES OF TREATMENT: 04/11/2024 to 05/23/2024 DIAGNOSIS: Mr. 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 He completed adjuvant radiotherapy to the right neck (60Gy/30) on 05/10/21. He developed recurrence in the LEFT neck and underwent left lingual tonsillectomy, left 1A-5 neck dissection (2/15 nodes, up to 2.6cm, no definite RAJIV) on 02/23/24. He met with the head and neck team at [facility] with recommendation to proceed to post-operative radiation therapy to the left neck for local control. AREA TREATED: Left Neck DELIVERED DOSE: 6,000 cGy in 30 fractions, 4 VMAT Rapid Arc [place], x06 with daily CBCT guidance TOTAL: 6,000 cGy delivered in 30 fractions ELAPSED TIME: 42 days. CLINICAL SUMMARY: The patient tolerated course of post-operative radiation therapy to the left neck well with treatment-related fatigue, dermatitis, dry mouth, and altered taste as expected. No other significant issues. The patient was able to complete treatment as intended without break interruption or modification of prescription plan. The patient will be evaluated in 2-3 weeks for postradiation follow-up with plans for initial post-treatment imaging in approximately 2 months. . Staff Physician Yosef Taylor M.D. / SOILA 2:33 AM Electronically Signed cc: Khadar Hill DO [address] [facility] [address] [address] Tristian Pacheco MD [address] [place] [phone] [address] Santiago Villalba MD ([facility]) [facility] 05-22-2024 Note HNO ID: [id number] Author: YOSEF TAYLOR MD Service: ? Author Type: Physician Type: Progress Notes Filed: 06/10/2024 23:46 Note Text: Radiation Oncology - On Treatment Review (OTR) Note PATIENT NAME: Scarlet Mayer PATIENT DIAGNOSIS: Mr. 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 He completed adjuvant radiotherapy to the right neck (60Gy/30) on 05/10/21. He developed recurrence in the LEFT neck and underwent left lingual tonsillectomy, left 1A-5 neck dissection (2/15 nodes, up to 2.6cm, no definite ARJIV) on 02/23/24. COURSE: post-operative AREA TREATED: Left neck CURRENT DOSE: 5800 cGy in 29 fx PLANNED DOSE: 6000 cGy in 30 fx SUBJECTIVE: Tolerating XRT well and does note some soreness in the area of the left ear as well as some skin irritation and breakdown. He also feels soreness in the roof of the mouth as well as inside the left cheek. He manages discomfort with 40 mg of Motrin 3 times daily. He also notes dry mouth and altered taste and does not like the soda rinse approximately 10 times as well as healios. He denies any pain with swallowing but does get some softer diet and denies any choking. He does endorse fatigue as he has taken a cough work with her appetite and hydration and stable weight. He is using Silvadene on the area of skin irritation/breakdown in addition to moisturizer. EXAM: KPS: 90 General Appearance: Alert and oriented. No acute distress. Radiation dermatitis: Mild IMAGING/LAB RESULTS: None Treatment chart checked: Yes Patient treatment site reviewed and verified:Yes Port films reviewed and current:Yes Medications started: None ASSESSMENT/PLAN: Clinically stable. Toxicity within expected parameters. Continue radiation treatment as planned. Yosef Taylor MD [facility] 05-22-2024 History of Present illness Narrative Radiation Oncology - On Treatment Review (OTR) Note PATIENT NAME: Scarlet Mayer PATIENT DIAGNOSIS: Mr. 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 He completed adjuvant radiotherapy to the right neck (60Gy/30) on 05/10/21. He developed recurrence in the LEFT neck and underwent left lingual tonsillectomy, left 1A-5 neck dissection (2/15 nodes, up to 2.6cm, no definite RAJIV) on 02/23/24. COURSE: post-operative AREA TREATED: Left neck CURRENT DOSE: 5800 cGy in 29 fx PLANNED DOSE: 6000 cGy in 30 fx SUBJECTIVE: Tolerating XRT well and does note some soreness in the area of the left ear as well as some skin irritation and breakdown. He also feels soreness in the roof of the mouth as well as inside the left cheek. He manages discomfort with 40 mg of Motrin 3 times daily. He also notes dry mouth and altered taste and does not like the soda rinse approximately 10 times as well as healios. He denies any pain with swallowing but does get some softer diet and denies any choking. He does endorse fatigue as he has taken a cough work with her appetite and hydration and stable weight. He is using Silvadene on the area of skin irritation/breakdown in addition to moisturizer. EXAM: KPS: 90 General Appearance: Alert and oriented. No acute distress. Radiation dermatitis: Mild IMAGING/LAB RESULTS: None Treatment chart checked: Yes Patient treatment site reviewed and verified:Yes Port films reviewed and current:Yes Medications started: None ASSESSMENT/PLAN: Clinically stable. Toxicity within expected parameters. Continue radiation treatment as planned. Yosef Taylro MD documented in this encounter [facility] 05-15-2024 Note HNO ID: [id number] Author: YOSEF TAYLOR MD Service: ? Author Type: Physician Type: Progress Notes Filed: 06/04/2024 07:32 Note Text: Radiation Oncology - On Treatment Review (OTR) Note PATIENT NAME: Scarlet Mayer PATIENT DIAGNOSIS: Mr. 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 He completed adjuvant radiotherapy to the right neck (60Gy/30) on 05/10/21. He developed recurrence in the LEFT neck and underwent left lingual tonsillectomy, left 1A-5 neck dissection (2/15 nodes, up to 2.6cm, no definite RAJIV) on 02/23/24. COURSE: post-operative AREA TREATED: Left neck CURRENT DOSE: 4800 cGy in 24 fx PLANNED DOSE: 6000 cGy in 30 fx SUBJECTIVE: Well and notes some discomfort in the area of skin erythema and uses a moisturizer daily. He has slight area of desquamation in the area of the incision. He reports no discomfort or sores ulcers in the mouth but does feel some sensitivity in the tongue. He notes lack of taste and dry mouth and is doing the baking soda rinse as well as healios. He notes intact swallowing and is able to eat most consistencies and denies any choking sensation. He does note fatigue as he continues to work with her appetite and hydration and stable weight. PHYSICAL EXAM: KPS: 90 General Appearance: Alert and oriented. No acute distress. Radiation dermatitis: Mild Mucositis: No IMAGING/LAB RESULTS: None TOXICITY ASSESSMENT (CTCv4): Dysphagia:grade 1 - Symptomatic, able to eat regular diet Mucositis: grade 0 - No symptoms Radiation dermatitis: grade 1 - Faint erythema or dry desquamation Trismus: grade 0 - No symptoms Voice Changes:grade 0 - No symptoms Xerostomia: grade 1 - Symptomatic (dry or thick saliva) without significant dietary alteration; unstimulated saliva flow >2ml/min Fatigue: grade 1 - Fatigue relieved by rest Pain: grade 1 - Mild pain Taste: grade 1 - Altered taste but no change in diet Treatment chart checked: Yes Patient treatment site reviewed and verified:Yes Port films reviewed and current:Yes Medications started: None ASSESSMENT:Clinically stable. Toxicity within expected parameters. Continue radiation treatment as planned. Yosef Taylor MD [facility] 05-08-2024 Note HNO ID: [id number] Author: YOSEF TAYLOR MD Service: ? Author Type: Physician Type: Progress Notes Filed: 05/20/2024 22:21 Note Text: Radiation Oncology - On Treatment Review (OTR) Note PATIENT NAME: Scarlet Mayer PATIENT DIAGNOSIS: Mr. 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 He completed adjuvant radiotherapy to the right neck (60Gy/30) on 05/10/21. He developed recurrence in the LEFT neck and underwent left lingual tonsillectomy, left 1A-5 neck dissection (2/15 nodes, up to 2.6cm, no definite RAJIV) on 02/23/24. COURSE: post-operative AREA TREATED: Left neck CURRENT DOSE: 3800 cGy in 19 fx PLANNED DOSE: 6000 cGy in 30 fx SUBJECTIVE: Tolerating XRT well and denies any pain or discomfort in the head and neck including any sores or ulcers in the mouth. He does note some tongue sensitivity and continues to use the baking soda rinse as well as Healios. He does note dry mouth as well as altered taste. He denies any throat pain or difficulty swallowing and is able to eat all consistencies. He does note skin redness without breakdown of the treatment area and uses a moisturizer daily. He does endorse fatigue as he continues to work with stable appetite and hydration and weight. PHYSICAL EXAM: KPS: 90 General Appearance: Alert and oriented. No acute distress. Radiation dermatitis: Mild Mucositis: No Oral cavity and oropharynx: Oral cavity and oropharynx: lips and gums normal, palate elevates normally, tongue mobile and without palpable lesions; dry with thickened saliva. Neck: Normal ROM. No palpable cervical or supraclavicular adenopathy. IMAGING/LAB RESULTS: None TOXICITY ASSESSMENT (CTCv4): Dysphagia:grade 1 - Symptomatic, able to eat regular diet Mucositis: grade 1 - Asymptomatic or mild symtoms; intervention not indicated Radiation dermatitis: grade 1 - Faint erythema or dry desquamation Trismus: grade 0 - No symptoms Voice Changes:grade 0 - No symptoms Xerostomia: grade 1 Fatigue: grade 1 - Fatigue relieved by rest Pain: grade 0 - No symptoms Taste: grade 1 - Altered taste but no change in diet Treatment chart checked: Yes Patient treatment site reviewed and verified:Yes Port films reviewed and current:Yes Medications started: None ASSESSMENT:Clinically stable. Toxicity within expected parameters. Continue radiation treatment as planned. Yosef Taylor MD [facility] 05-08-2024 History of Present illness Narrative Radiation Oncology - On Treatment Review (OTR) Note PATIENT NAME: Scarlet Mayer PATIENT DIAGNOSIS: Mr. 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 He completed adjuvant radiotherapy to the right neck (60Gy/30) on 05/10/21. He developed recurrence in the LEFT neck and underwent left lingual tonsillectomy, left 1A-5 neck dissection (2/15 nodes, up to 2.6cm, no definite RAJIV) on 02/23/24. COURSE: post-operative AREA TREATED: Left neck CURRENT DOSE: 3800 cGy in 19 fx PLANNED DOSE: 6000 cGy in 30 fx SUBJECTIVE: Tolerating XRT well and denies any pain or discomfort in the head and neck including any sores or ulcers in the mouth. He does note some tongue sensitivity and continues to use the baking soda rinse as well as Healios. He does note dry mouth as well as altered taste. He denies any throat pain or difficulty swallowing and is able to eat all consistencies. He does note skin redness without breakdown of the treatment area and uses a moisturizer daily. He does endorse fatigue as he continues to work with stable appetite and hydration and weight. PHYSICAL EXAM: KPS: 90 General Appearance: Alert and oriented. No acute distress. Radiation dermatitis: Mild Mucositis: No Oral cavity and oropharynx: Oral cavity and oropharynx: lips and gums normal, palate elevates normally, tongue mobile and without palpable lesions; dry with thickened saliva. Neck: Normal ROM. No palpable cervical or supraclavicular adenopathy. IMAGING/LAB RESULTS: None TOXICITY ASSESSMENT (CTCv4): Dysphagia:grade 1 - Symptomatic, able to eat regular diet Mucositis: grade 1 - Asymptomatic or mild symtoms; intervention not indicated Radiation dermatitis: grade 1 - Faint erythema or dry desquamation Trismus: grade 0 - No symptoms Voice Changes:grade 0 - No symptoms Xerostomia: grade 1 Fatigue: grade 1 - Fatigue relieved by rest Pain: grade 0 - No symptoms Taste: grade 1 - Altered taste but no change in diet Treatment chart checked: Yes Patient treatment site reviewed and verified:Yes Port films reviewed and current:Yes Medications started: None ASSESSMENT:Clinically stable. Toxicity within expected parameters. Continue radiation treatment as planned. Yosef Taylor MD documented in this encounter [facility] 05-01-2024 Note HNO ID: [id number] Author: YOSEF TAYLOR MD Service: ? Author Type: Physician Type: Progress Notes Filed: 05/14/2024 05:05 Note Text: Radiation Oncology - On Treatment Review (OTR) Note PATIENT NAME: Scarlet Mayer PATIENT DIAGNOSIS: Mr. 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 He completed adjuvant radiotherapy to the right neck (60Gy/30) on 05/10/21. He developed recurrence in the LEFT neck and underwent left lingual tonsillectomy, left 1A-5 neck dissection (2/15 nodes, up to 2.6cm, no definite RAJIV) on 02/23/24. COURSE: post-operative AREA TREATED: Left neck CURRENT DOSE: 2800 cGy in 14 fx PLANNED DOSE: 6000 cGy in 30 fx SUBJECTIVE: Already XRT well and denies any pain/discomfort in the head and neck or any sores/ulcers. He does note some dry mouth as well as altered taste and has been doing the baking soda rinse several times a day which has been helping with his tongue/gum sensitivity. He reports no pain/difficulty with swallowing or any choking sensation and is able to eat most consistencies. He does have some skin redness without breakdown is using a moisturizer daily and is also using heliosis twice a day. He does endorse fatigue as he continues to work with stable appetite and hydration and weight. Last 4 Encounter Wt Readings: Date: Wt: 05/01/2024 103.4 kg (227 lb 15.3 oz) 04/24/2024 104.7 kg (230 lb 13.2 oz) 04/11/2024 105.8 kg (233 lb 4 oz) 03/25/2024 105.7 kg (233 lb 0.4 oz) PHYSICAL EXAM: KPS: 90 General Appearance: Alert and oriented. No acute distress. Radiation dermatitis: Mild Mucositis: No Oral cavity and oropharynx: lips and gums normal, palate elevates normally, tongue mobile and without palpable lesions; dry with thickened saliva. Neck: Normal ROM. No palpable cervical or supraclavicular adenopathy. IMAGING/LAB RESULTS: None TOXICITY ASSESSMENT (CTCv4): Dysphagia:grade 1 - Symptomatic, able to eat regular diet Mucositis: grade 1 - Asymptomatic or mild symtoms; intervention not indicated Radiation dermatitis: grade 1 - Faint erythema or dry desquamation Trismus: grade 0 - No symptoms Voice Changes:grade 0 - No symptoms Xerostomia: grade 0 - No symptoms Fatigue: grade 1 - Fatigue relieved by rest Pain: grade 0 - No symptoms Taste: grade 1 - Altered taste but no change in diet Treatment chart checked: Yes Patient treatment site reviewed and verified:Yes Port films reviewed and current:Yes Medications started: None ASSESSMENT:Clinically stable. Toxicity within expected parameters. Continue radiation treatment as planned. Yosef Taylor MD [facility] 05-01-2024 History of Present illness Narrative Radiation Oncology - On Treatment Review (OTR) Note PATIENT NAME: Scarlet Mayer PATIENT Yosef Taylor MD documented in this encounter [facility] 05-01-2024 Note HNO ID: [id number] Author: KOMAL MENDOZA, OTR/L Service: ? Author Type: Occupational Therapist Type: Progress Notes Filed: 05/01/2024 10:57 Note Text: Episode Visit Count: 4 Therapist That Will Accept/Oversee The Plan Of Care: Rigoberto Start of Care Date: 03/28/24 Onset Date: 03/18/24 Patient Identified by Name and Date of : Yes REHABILITATION AND SPORTS THERAPY OCCUPATIONAL THERAPY TREATMENT NOTE ASSESSMENT: Scarlet Mayer tolerated the session with neck tightness and skin redness from radiation . He demonstrated improvements in home self mgmt for lymphedema . The patient will continue to benefit from ongoing skilled occupational therapy to progress toward set goals. Total Number of Visits Planned: 5 Planned Treatment Interventions: Therapeutic exercise (85211), Manual therapy (73043), Self-halfway management (42937) PLAN FOR NEXT VISIT: PN next visit - follow 4-6 weeks post radiation once skin healed - how is compression - new HANDN garment and homemade neck swelling pieces SUBJECTIVE: 9 weeks S/P- pt is currently in radiation 13 th visit - pt reports L side of neck, jaw is tight. Pt trying to use his wedge pillow at night and would like to order HAND N copmprssion garment today Pain: Pain Pain Level: (L side of neck - radiated tissue - beginning to become red tender and tight) Post Treatment Pain Post Treatment Pain Level: No Change OBJECTIVE MEASURES WITH LEVEL OF FUNCTION: L neck radiated tissue red submental swelling persists scar softening - some tightness and adherence of scar medial most portion TREATMENT: Manual Therapy Lymphedema: 1: MLD for HANDN - beginning with diaphnratic breathing 10x, axillary nodes, supraclavicular open and activate - HANDN anterior approach and posterior approach 2: skin inspection- neck tissue tender from radiation gentle scar massage Skilled Intervention: Manual skills to improve joint mobility, ROM, and decrease pain. Utilized anatomy knowledge of the therapist, and assessment of patient's response to intervention. Increase lymphatic fluid dynamics, increase skin extensibility and normalize sensation. Self-Senior Care Management: 1: ordered new LANDR - HANDN garment through [employer] - pt can wear once it is delivered short periods of time - depending on radiated skin tissue 2: in meantime - OT made stonger submental compression - instructed pt/spouse how to wear - and precautions - this is stronger but pt needs to be very careful not too tight or for too long - be very cautious and careful with radiated skin tissue 3: educated pt how to perform posterior HANDN approach MLD - due to scar and tender radiated neck tissue 4: increase mouth opening stretch - longer duration of end range stretch - to 20 sec ...30 sec...40 sec sa tolerated 5: continue home program - elevation with wedge pillow as possible 6: very gentle scar massage - slight scar traction - gentle due to skin tissue Skilled Intervention: Reviewed patient specific diagnosis in relation to activities of daily living/home management. Activity progression based on professional judgement. Billing Manual Therapy Treatment Minutes: 20 Self-Care/Home Management Treatment Minutes: 25 Total Session Time (minutes): 45 Session Start Time : 904 Session Stop Time : 949 Komal Mendoza OTR/L [facility] 05-01-2024 History of Present illness Narrative Episode Visit Count: 4 Therapist That Will Accept/Oversee The Plan Of Care: Rigoberto Start of Care Date: 03/28/24 Onset Date: 03/18/24 Patient Identified by Name and Date of : Yes REHABILITATION AND SPORTS THERAPY OCCUPATIONAL THERAPY TREATMENT NOTE ASSESSMENT: Scarlet Mayer tolerated the session with neck tightness and skin redness from radiation . He demonstrated improvements in home self mgmt for lymphedema . The patient will continue to benefit from ongoing skilled occupational therapy to progress toward set goals. Total Number of Visits Planned: 5 Planned Treatment Interventions: Therapeutic exercise (91504), Manual therapy (92978), Self-halfway management ([id number]) PLAN FOR NEXT VISIT: PN next visit - follow 4-6 weeks post radiation once skin healed - how is compression - new H&N garment and homemade neck swelling pieces SUBJECTIVE: 9 weeks S/P- pt is currently in radiation 13 th visit - pt reports L side of neck, jaw is tight. Pt trying to use his wedge pillow at night and would like to order H& N copmprssion garment today Pain: Pain Pain Level: (L side of neck - radiated tissue - beginning to become red tender and tight) Post Treatment Pain Post Treatment Pain Level: No Change OBJECTIVE MEASURES WITH LEVEL OF FUNCTION: L neck radiated tissue red submental swelling persists scar softening - some tightness and adherence of scar medial most portion TREATMENT: Manual Therapy Lymphedema: 1: MLD for H&N - beginning with diaphnratic breathing 10x, axillary nodes, supraclavicular open and activate - H&N anterior approach and posterior approach 2: skin inspection- neck tissue tender from radiation gentle scar massage Skilled Intervention: Manual skills to improve joint mobility, ROM, and decrease pain. Utilized anatomy knowledge of the therapist, and assessment of patient's response to intervention. Increase lymphatic fluid dynamics, increase skin extensibility and normalize sensation. Self-Senior Care Management: 1: ordered new L&R - H&N garment through [employer] - pt can wear once it is delivered short periods of time - depending on radiated skin tissue 2: in meantime - OT made stonger submental compression - instructed pt/spouse how to wear - and precautions - this is stronger but pt needs to be very careful not too tight or for too long - be very cautious and careful with radiated skin tissue 3: educated pt how to perform posterior H&N approach MLD - due to scar and tender radiated neck tissue 4: increase mouth opening stretch - longer duration of end range stretch - to 20 sec ...30 sec...40 sec sa tolerated 5: continue home program - elevation with wedge pillow as possible 6: very gentle scar massage - slight scar traction - gentle due to skin tissue Skilled Intervention: Reviewed patient specific diagnosis in relation to activities of daily living/home management. Activity progression based on professional judgement. Billing Manual Therapy Treatment Minutes: 20 Self-Care/Home Management Treatment Minutes: 25 Total Session Time (minutes): 45 Session Start Time : 904 Session Stop Time : 949 LENY Kerns/Toby documented in this encounter [facility] 04-25-2024 Note HNO ID: [id number] Author: KOMAL MENDOZA OTR/Toby Service: ? Author Type: Occupational Therapist Type: Progress Notes Filed: 04/25/2024 12:30 Note Text: Episode Visit Count: 3 Therapist That Will Accept/Oversee The Plan Of Care: Rigoberto Start of Care Date: 03/28/24 Onset Date: 03/18/24 Patient Identified by Name and Date of : Yes REHABILITATION AND SPORTS THERAPY OCCUPATIONAL THERAPY TREATMENT NOTE ASSESSMENT: Scarlet Mayer tolerated the session with some expected neck tenderness due to in radiation treatment . He demonstrated improvements in scar mobility - head neck rotation and side bending post treatment . The patient will continue to benefit from ongoing skilled occupational therapy to progress toward set goals. Total Number of Visits Planned: 6 Planned Treatment Interventions: Therapeutic exercise (28778), Manual therapy (06439), Self-halfway management ([id number]) PLAN FOR NEXT VISIT: how is the homemade neck compression? wedge pillow for elevated sleep? how is home MLD going and home exer program? SUBJECTIVE: 8 weeks S/P L neck resection - pt has not ordered wedge pillow yet - plan to order soon - pt has completed 9 radiation treatments - reports tightness in neck and with head movment, assisting with scar massage Pain: Pain Pain Level: (pt reports increaed tightness and tenderness in L side of neck due to radiation treatments) Post Treatment Pain Post Treatment Pain Level: Better (head movement better - not as tight at end of session per pt report) OBJECTIVE MEASURES WITH LEVEL OF FUNCTION: PAIN: tenderness - L neck area SCAR: more mobile compared to last visit HEAD/NECK AROM - restricted and tight - improved after treatment today NECK TISSUE - softer than last visit Head and Neck Measurements Superior Neck (cm): 50.5 cm Middle Neck (cm): 45 cm Inferior Neck (cm): 42 cm L Tragus to mental protuberance (cm): 15.9 cm L Tragus to mouth angle (cm): 12.2 cm L Mandibular angle to external eye (cm): 11 cm Left Total facial composite (cm): 39.1 cm Total Right and Left facial composite combined (cm): 39.1 cm TREATMENT: Therapeutic Exercise: 1: AROM for LUE/head/neck and face - 10 reps each 2: pt to work on mouth opening stretch - hold 10 sec 10 reps - add to home program 3: swallowing exer 10x 4: above performed with swell spot on neck 5: added new neck side bending exer - add to HEP Skilled Intervention: Skilled judgment was used in selection of appropriate interventions. Correct performance of therapeutic exercises was facilitated with verbal, visual, and tactile cuing. Manual Therapy Lymphedema: 1: MLD for HANDN - beginning with diaphnratic breathing 10x, axillary nodes, supraclavicular open and activate - HANDN anterior approach 2: skin inspection- neck tissue tender from radiation gentle scar massage 3: intraoral massage - L cheek Skilled Intervention: Manual skills to improve joint mobility, ROM, and decrease pain. Utilized anatomy knowledge of the therapist, and assessment of patient's response to intervention. Increase lymphatic fluid dynamics, increase skin extensibility and normalize sensation. Self-Senior Care Management: 1: reviewed wedge pillow 2: discussed need for compression 3: OT made homemade neck compression - bunny ears to wear 3x/day with exer - then on/off throughout day as tolerated - careful on newly radiated skin 4: measurments showing slight improvements Skilled Intervention: Reviewed patient specific diagnosis in relation to activities of daily living/home management. Activity progression based on professional judgement. Billing Therapeutic Exercise Treatment Minutes: 15 Manual Therapy Treatment Minutes: 25 Self-Care/Home Management Treatment Minutes: 15 Total Session Time (minutes): 55 Session Start Time : 804 Session Stop Time : 899 LENY Kerns/Toby [facility] 04-25-2024 History of Present illness Narrative Episode Visit Count: 3 Therapist That Will Accept/Oversee The Plan Of Care: Rigoberto Start of Care Date: 03/28/24 Onset Date: 03/18/24 Patient Identified by Name and Date of : Yes REHABILITATION AND SPORTS THERAPY OCCUPATIONAL THERAPY TREATMENT NOTE ASSESSMENT: Scarlet Mayer tolerated the session with some expected neck tenderness due to in radiation treatment . He demonstrated improvements in scar mobility - head neck rotation and side bending post treatment . The patient will continue to benefit from ongoing skilled occupational therapy to progress toward set goals. Total Number of Visits Planned: 6 Planned Treatment Interventions: Therapeutic exercise (88607), Manual therapy (94790), Self-halfway management ([id number]) PLAN FOR NEXT VISIT: how is the homemade neck compression? wedge pillow for elevated sleep? how is home MLD going and home exer program? SUBJECTIVE: 8 weeks S/P L neck resection - pt has not ordered wedge pillow yet - plan to order soon - pt has completed 9 radiation treatments - reports tightness in neck and with head movment, assisting with scar massage Pain: Pain Pain Level: (pt reports increaed tightness and tenderness in L side of neck due to radiation treatments) Post Treatment Pain Post Treatment Pain Level: Better (head movement better - not as tight at end of session per pt report) OBJECTIVE MEASURES WITH LEVEL OF FUNCTION: PAIN: tenderness - L neck area SCAR: more mobile compared to last visit HEAD/NECK AROM - restricted and tight - improved after treatment today NECK TISSUE - softer than last visit Head and Neck Measurements Superior Neck (cm): 50.5 cm Middle Neck (cm): 45 cm Inferior Neck (cm): 42 cm L Tragus to mental protuberance (cm): 15.9 cm L Tragus to mouth angle (cm): 12.2 cm L Mandibular angle to external eye (cm): 11 cm Left Total facial composite (cm): 39.1 cm Total Right and Left facial composite combined (cm): 39.1 cm TREATMENT: Therapeutic Exercise: 1: AROM for LUE/head/neck and face - 10 reps each 2: pt to work on mouth opening stretch - hold 10 sec 10 reps - add to home program 3: swallowing exer 10x 4: above performed with swell spot on neck 5: added new neck side bending exer - add to HEP Skilled Intervention: Skilled judgment was used in selection of appropriate interventions. Correct performance of therapeutic exercises was facilitated with verbal, visual, and tactile cuing. Manual Therapy Lymphedema: 1: MLD for H&N - beginning with diaphnratic breathing 10x, axillary nodes, supraclavicular open and activate - H&N anterior approach 2: skin inspection- neck tissue tender from radiation gentle scar massage 3: intraoral massage - L cheek Skilled Intervention: Manual skills to improve joint mobility, ROM, and decrease pain. Utilized anatomy knowledge of the therapist, and assessment of patient's response to intervention. Increase lymphatic fluid dynamics, increase skin extensibility and normalize sensation. Self-Senior Care Management: 1: reviewed wedge pillow 2: discussed need for compression 3: OT made homemade neck compression - bunny ears to wear 3x/day with exer - then on/off throughout day as tolerated - careful on newly radiated skin 4: measurments showing slight improvements Skilled Intervention: Reviewed patient specific diagnosis in relation to activities of daily living/home management. Activity progression based on professional judgement. Billing Therapeutic Exercise Treatment Minutes: 15 Manual Therapy Treatment Minutes: 25 Self-Care/Home Management Treatment Minutes: 15 Total Session Time (minutes): 55 Session Start Time : 804 Session Stop Time : 899 LENY Kerns/Toby documented in this encounter [facility] 04-24-2024 Note HNO ID: [id number] Author: YOSEF TAYLOR MD Service: ? Author Type: Physician Type: Progress Notes Filed: 05/06/2024 23:06 Note Text: Radiation Oncology - On Treatment Review (OTR) Note PATIENT NAME: Scarlet Mayer PATIENT DIAGNOSIS: Mr. 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 He completed adjuvant radiotherapy to the right neck (60Gy/30) on 05/10/21. He developed recurrence in the LEFT neck and underwent left lingual tonsillectomy, left 1A-5 neck dissection (2/15 nodes, up to 2.6cm, no definite RAJIV) on 02/23/24. COURSE: post-operative AREA TREATED: Left neck CURRENT DOSE: 1800 cGy in 9 fx PLANNED DOSE: 6000 cGy in 30 fx SUBJECTIVE: Tolerating XRT well and denies any pain/discomfort or any sores or ulcers in his mouth but does note some sensitivity in his tongue. He does note taste changes with thicker saliva but is able to swallow well and eat most consistencies. He denies any choking sensation or change in his voice. He does endorse fatigue as he continues to work with stable appetite and hydration and weight. Last 5 Encounter Wt Readings: Date: Wt: 05/01/2024 103.4 kg (227 lb 15.3 oz) 04/24/2024 104.7 kg (230 lb 13.2 oz) 04/11/2024 105.8 kg (233 lb 4 oz) 03/25/2024 105.7 kg (233 lb 0.4 oz) 03/18/2024 106 kg (233 lb 11 oz) PHYSICAL EXAM: KPS: 90 General Appearance: Alert and oriented. No acute distress. Radiation dermatitis: No Mucositis: No Oral cavity and oropharynx: lips and gums normal, oral and pharyngeal mucosa moist, tongue mobile and without palpable lesions Neck: Normal ROM. No palpable cervical or supraclavicular adenopathy. IMAGING/LAB RESULTS: None TOXICITY ASSESSMENT (CTCv4): Dysphagia:grade 1 - Symptomatic, able to eat regular diet Mucositis: grade 0 - No symptoms Radiation dermatitis: grade 0 - No symptoms Trismus: grade 0 - No symptoms Voice Changes:grade 0 - No symptoms Xerostomia: grade 1 - Symptomatic (dry or thick saliva) without significant dietary alteration; unstimulated saliva flow >2ml/min Fatigue: grade 1 - Fatigue relieved by rest Pain: grade 0 - No symptoms Treatment chart checked: Yes Patient treatment site reviewed and verified:Yes Port films reviewed and current:Yes Medications started: Yes, BMX ASSESSMENT:Clinically stable. Toxicity within expected parameters. Continue radiation treatment as planned. Yosef Taylor MD [facility] 04-24-2024 History of Present illness Narrative Radiation Oncology - On Treatment Review (OTR) Note PATIENT NAME: Scarlet Mayer PATIENT DIAGNOSIS: Mr. 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 He completed adjuvant radiotherapy to the right neck (60Gy/30) on 05/10/21. He developed recurrence in the LEFT neck and underwent left lingual tonsillectomy, left 1A-5 neck dissection (2/15 nodes, up to 2.6cm, no definite RAJIV) on 02/23/24. COURSE: post-operative AREA TREATED: Left neck CURRENT DOSE: 1800 cGy in 9 fx PLANNED DOSE: 6000 cGy in 30 fx SUBJECTIVE: Tolerating XRT well and denies any pain/discomfort or any sores or ulcers in his mouth but does note some sensitivity in his tongue. He does note taste changes with thicker saliva but is able to swallow well and eat most consistencies. He denies any choking sensation or change in his voice. He does endorse fatigue as he continues to work with stable appetite and hydration and weight. Last 5 Encounter Wt Readings: Date: Wt: 05/01/2024 103.4 kg (227 lb 15.3 oz) 04/24/2024 104.7 kg (230 lb 13.2 oz) 04/11/2024 105.8 kg (233 lb 4 oz) 03/25/2024 105.7 kg (233 lb 0.4 oz) 03/18/2024 106 kg (233 lb 11 oz) PHYSICAL EXAM: KPS: 90 General Appearance: Alert and oriented. No acute distress. Radiation dermatitis: No Mucositis: No Oral cavity and oropharynx: lips and gums normal, oral and pharyngeal mucosa moist, tongue mobile and without palpable lesions Neck: Normal ROM. No palpable cervical or supraclavicular adenopathy. IMAGING/LAB RESULTS: None TOXICITY ASSESSMENT (CTCv4): Dysphagia:grade 1 - Symptomatic, able to eat regular diet Mucositis: grade 0 - No symptoms Radiation dermatitis: grade 0 - No symptoms Trismus: grade 0 - No symptoms Voice Changes:grade 0 - No symptoms Xerostomia: grade 1 - Symptomatic (dry or thick saliva) without significant dietary alteration; unstimulated saliva flow >2ml/min Fatigue: grade 1 - Fatigue relieved by rest Pain: grade 0 - No symptoms Treatment chart checked: Yes Patient treatment site reviewed and verified:Yes Port films reviewed and current:Yes Medications started: Yes, BMX ASSESSMENT:Clinically stable. Toxicity within expected parameters. Continue radiation treatment as planned. Yosef Taylor MD documented in this encounter [facility] 04-22-2024 History of Present illness Narrative HPI Patient presents today about 6 weeks or so postop left neck dissection for metastatic mucoepidermoid cancer with unknown primary. He has initiated radiation. Seems to be doing okay. Relevant postoperative physical examination Oral cavity examination shows nothing suspicious. Oropharyngeal examination is negative. No palpable neck masses. Assessment/plan Scarlet was seen today for post-op. Diagnoses and all orders for this visit: 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/HCC) (Primary) Comments: Patient encouraged to finishes radiation therapy and I will see him back in a month or so History of neck dissection documented in this encounter [facility] 04-16-2024 Note HNO ID: [id number] Author: KOMAL MENDOZA OTR/L Service: ? Author Type: Occupational Therapist Type: Progress Notes Filed: 04/16/2024 13:58 Note Text: Episode Visit Count: 2 Therapist That Will Accept/Oversee The Plan Of Care: Marcellus Mendoza - transfer of care from [facility] Start of Care Date: 03/28/24 Onset Date: 03/18/24 Patient Identified by Name and Date of : Yes REHABILITATION AND SPORTS THERAPY OCCUPATIONAL THERAPY TREATMENT NOTE ASSESSMENT: Scarlet Mayer tolerated the session with no issues. He demonstrated difficulty with HANDN lymphedema due to Ca treatment for salivary gland Ca - pt is 7 weeks S/P L neck dissection, LN removal and currently in radiation. Pt had R neck dissection a few years back. Pt presents with tenderness L side of neck, surgical scar tight and beginning to adhere, submental and L side facial swelling, tightness in ROM of head and neck. Pt will benefit from HAND N lymphedema therapy to improve lymphatic filtration, decrease swelling, improve ROM/decrease tightness in tissues compromised from Ca treatment and radiatio. . The patient will continue to benefit from ongoing skilled occupational therapy to progress toward set goals. Total Number of Visits Planned: 7 PLAN FOR NEXT VISIT: take measuremnts assess progress, did pt order wedge - teach MLD anterior and posterior approach - may make compression for neck - any ringing in ears? SUBJECTIVE: Pt here today with supportive (transfer of care from [facility] [place] to [facility] (closer to home). 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, He just started radiaiton, pt had R neck resecction years ago for HANDN Ca - now has considerable lymph node and lymphatic system compromise - here today to address face neck swelling, mouth and jaw tightness Pain: Pain Pain Level: (pt reports tightness and tenderness) Post Treatment Pain Post Treatment Pain Level: No Change OBJECTIVE MEASURES WITH LEVEL OF FUNCTION: L scar - tight,adhered, tender swallowing difficult pt reports ringing in ears submental swelling noted TREATMENT: Therapeutic Exercise: 1: review of postural awaress and exer for forwar head, rounded shoulders - added to home program 2: added inc hold time mouth/jaw opening from 2-5 sec to 10 sec - inc end range hold as tolerated 3: added - diaphrmaitc breathing exer, shoulder, neck, facial to home program - 3x/day 4: added humming, singing, whistling and swallowing exer to address - internal swelling issues from surgery and radiaiton Skilled Intervention: Reviewed and educated patient on additions/changes for home exercise program as above (*). Reviewed and educated patient on additions/changes for home exercise program . Skilled judgment was used in selection of appropriate interventions. Provided written instruction for home exercise program to facilitate proper performance and compliance. Manual Therapy Lymphedema: 1: brief MLD - open and activate supraclavicular, axillary LN - gentle in neck area and to begin teaching self MLD and spouse assist MLD 2: began light scar massage and mobilization - scar traction Skilled Intervention: Manual skills to improve joint mobility, ROM, and decrease pain. Utilized anatomy knowledge of the therapist, and assessment of patient's response to intervention. Increase lymphatic fluid dynamics, increase skin extensibility and normalize sensation. Self-Senior Care Management: 1: lymphedema education, anatomy and prevention - educational folder issued 2: written handouts provided on above - incl meticuous skin care - s/s of infection to at risk swollen areas 3: reviewed HAND N elevation - recommend wedge pillow for sleep - to purchase on [employer] 4: discussed future compression - Jobst Neck and LANDR HANDN - handouts provided and rationale discussed 5: educaeted pt on rationale of diaphramitc breathing - how to and pt performed in clinic supine on mat - to add to HEP 3x/day 6: empahsised improtance of posture and posture awareness Skilled Intervention: Skilled judgment in the selection of proper modification for activity of daily living/home management based on clinical presentation, deficits, and needs. Educated the patient regarding recommendations and provided written instruction to facilitate compliance. Provided written instruction for activities of daily living techniques to facilitate proper performance and compliance. Reviewed patient specific diagnosis in relation to activities of daily living/home management. Activity progression based on professional judgement. Billing Therapeutic Exercise Treatment Minutes: 15 Manual Therapy Treatment Minutes: 20 Self-Care/Home Management Treatment Minutes: 25 Total Session Time (minutes): 55 Session Start Time : 1005 Session Stop Time : 1100 Komal Mendoza OTR/L [facility] 04-16-2024 History of Present illness Narrative Episode Visit Count: 2 Therapist That Will Accept/Oversee The Plan Of Care: Marcellus Mendoza - transfer of care from [facility] Start of Care Date: 03/28/24 Onset Date: 03/18/24 Patient Identified by Name and Date of : Yes REHABILITATION AND SPORTS THERAPY OCCUPATIONAL THERAPY TREATMENT NOTE ASSESSMENT: Scarlet Mayer tolerated the session with no issues. He demonstrated difficulty with H&N lymphedema due to Ca treatment for salivary gland Ca - pt is 7 weeks S/P L neck dissection, LN removal and currently in radiation. Pt had R neck dissection a few years back. Pt presents with tenderness L side of neck, surgical scar tight and beginning to adhere, submental and L side facial swelling, tightness in ROM of head and neck. Pt will benefit from H& N lymphedema therapy to improve lymphatic filtration, decrease swelling, improve ROM/decrease tightness in tissues compromised from Ca treatment and radiatio. . The patient will continue to benefit from ongoing skilled occupational therapy to progress toward set goals. Total Number of Visits Planned: 7 PLAN FOR NEXT VISIT: take measuremnts assess progress, did pt order wedge - teach MLD anterior and posterior approach - may make compression for neck - any ringing in ears? SUBJECTIVE: Pt here today with supportive (transfer of care from [facility] to [facility] (closer to home). 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, He just started radiaiton, pt had R neck resecction years ago for H&N Ca - now has considerable lymph node and lymphatic system compromise - here today to address face neck swelling, mouth and jaw tightness Pain: Pain Pain Level: (pt reports tightness and tenderness) Post Treatment Pain Post Treatment Pain Level: No Change OBJECTIVE MEASURES WITH LEVEL OF FUNCTION: L scar - tight,adhered, tender swallowing difficult pt reports ringing in ears submental swelling noted TREATMENT: Therapeutic Exercise: 1: review of postural awaress and exer for forwar head, rounded shoulders - added to home program 2: added inc hold time mouth/jaw opening from 2-5 sec to 10 sec - inc end range hold as tolerated 3: added - diaphrmaitc breathing exer, shoulder, neck, facial to home program - 3x/day 4: added humming, singing, whistling and swallowing exer to address - internal swelling issues from surgery and radiaiton Skilled Intervention: Reviewed and educated patient on additions/changes for home exercise program as above (*). Reviewed and educated patient on additions/changes for home exercise program . Skilled judgment was used in selection of appropriate interventions. Provided written instruction for home exercise program to facilitate proper performance and compliance. Manual Therapy Lymphedema: 1: brief MLD - open and activate supraclavicular, axillary LN - gentle in neck area and to begin teaching self MLD and spouse assist MLD 2: began light scar massage and mobilization - scar traction Skilled Intervention: Manual skills to improve joint mobility, ROM, and decrease pain. Utilized anatomy knowledge of the therapist, and assessment of patient's response to intervention. Increase lymphatic fluid dynamics, increase skin extensibility and normalize sensation. Self-Senior Care Management: 1: lymphedema education, anatomy and prevention - educational folder issued 2: written handouts provided on above - incl meticuous skin care - s/s of infection to at risk swollen areas 3: reviewed H& N elevation - recommend wedge pillow for sleep - to purchase on [employer] 4: discussed future compression - Jobst Neck and L&R H&N - handouts provided and rationale discussed 5: educaeted pt on rationale of diaphramitc breathing - how to and pt performed in clinic supine on mat - to add to HEP 3x/day 6: empahsised improtance of posture and posture awareness Skilled Intervention: Skilled judgment in the selection of proper modification for activity of daily living/home management based on clinical presentation, deficits, and needs. Educated the patient regarding recommendations and provided written instruction to facilitate compliance. Provided written instruction for activities of daily living techniques to facilitate proper performance and compliance. Reviewed patient specific diagnosis in relation to activities of daily living/home management. Activity progression based on professional judgement. Billing Therapeutic Exercise Treatment Minutes: 15 Manual Therapy Treatment Minutes: 20 Self-Care/Home Management Treatment Minutes: 25 Total Session Time (minutes): 55 Session Start Time : 1005 Session Stop Time : 1100 ROBERT Kerns documented in this encounter [facility] 04-11-2024 Note HNO ID: [id number] Author: YOSEF TAYLOR MD Service: ? Author Type: Physician Type: Progress Notes Filed: 04/23/2024 05:18 Note Text: Radiation Oncology - On Treatment Review (OTR) Note PATIENT NAME: Scarlet Mayer PATIENT DIAGNOSIS: Mr. 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 He completed adjuvant radiotherapy to the right neck (60Gy/30) on 05/10/21. He developed recurrence in the LEFT neck and underwent left lingual tonsillectomy, left 1A-5 neck dissection (2/15 nodes, up to 2.6cm, no definite RAJIV) on 02/23/24. COURSE: post-operative AREA TREATED: Left neck CURRENT DOSE: 200 cGy in 1 fx PLANNED DOSE: 6000 cGy in 30 fx SUBJECTIVE: Tolerated first fraction of XRT well and reports no significant changes from the time of simulation. EXAM: KPS: 90 General Appearance: Alert and oriented. No acute distress. Radiation dermatitis: No IMAGING/LAB RESULTS: None Treatment chart checked: Yes Patient treatment site reviewed and verified:Yes Port films reviewed and current:Yes Medications started: None ASSESSMENT/PLAN: Clinically stable. No signs of toxicity. Continue radiation treatment as planned. We reviewed general precautions/instructions during radiation treatment to the head and neck as well as the potential acute toxicities during treatment and their time course. Discussed the importance of a well-balanced diet, hydration, and exercise/activity as tolerated through the course of treatment. Yosef Taylor MD [facility] 04-11-2024 History of Present illness Narrative Radiation Oncology - On Treatment Review (OTR) Note PATIENT NAME: Scarlet Mayer PATIENT Yosef Taylor MD documented in this encounter [facility] 03-28-2024 Note HNO ID: [id number] Author: KATHLEEN STOVALL OTR/L Service: ? Author Type: Occupational Therapist Type: Progress Notes Filed: 03/31/2024 15:10 Note Text: TEpisode Visit Count: 1 Therapist That Will Accept/Oversee The Plan Of Care: Kathleen Stovall Start of Care Date: 03/28/24 Onset Date: 03/18/24 Patient Identified by Name and Date of : Yes [facility] REHABILITATION AND SPORTS THERAPY OCCUPATIONAL THERAPY EVALUATION PLAN OF CARE: Assessment: Scarlet Mayer presents with face, submental and neck edema, scar adherence, jaw tightness neck and shoulder stiffness that interferes with heavy exertion, physical activities, recreational activities (functional neck movement, opening mouth wide for dental work) . Medical history is relevant for mets left neck , left lingual tonsillectomy, neck dissection, followed by radiation. He presents with impairments in ADL's, edema management, flexibility, independence in exercise, joint mobility, overall function, range of motion, symptom management, and tissue tenderness. PROMIS? (Patient-Reported Outcomes Measurement Information System) scores were reviewed and identified as within normal limits. Prognosis for therapy is Good due to: current objective clinical presentation, good overall health status He will benefit from skilled therapy services to meet the goals established for this plan of care as noted below. Pt will benefit from complete decongestive therapy including manual lymphatic drainage, myofascial stretch, active range of motion exercises and compression garments. Pt exhibits potential to benefit from skilled occupational therapy for lymphedema management and address above stated impairments Goals for Episode of Care created on 03/28/24 through 05/23/24 Patient will increase pain free neck AROM by 5 deg to allow for neutral postural alignment, improved performance with ADL/IADL Patient will increase mandibular AROM equal to or greater than 50 mm in order to be able to open mouth for oral hygiene and dental procedures. Patient will demonstrate independence with home exercise program including self MLD, compression wrap/garment, desensitization, skin care guidelines, scar massage, ROM and strengthening exercises. Patient will decrease Neck Composite Score by 2% or greater for decreased risk of infection, improved rom and posture. Patient Goals: manage swelling and tightness Planned Interventions, Frequency, and Duration: Current Frequency: 1x/week Duration: 8 weeks Total Number of Visits Planned: 8 Planned Treatment Interventions: Therapeutic exercise (33685), Manual therapy (59672), Self-halfway management (74717) PLAN FOR NEXT VISIT:assess progress Patient demonstrates good understanding of plan of care and treatment. The above goals and plan of care were discussed and agreed upon by patient/family. 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 He completed adjuvant radiotherapy to the right neck on 05/10/21. He developed recurrence in the LEFT neck and underwent left lingual tonsillectomy, left 1A-5 neck dissection (09/28 nodes, up to on 02/23/24. 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 5 points is clinically meaningfully difference Percentiles provide an indication of how the patient's score ranks in relation to the general population. Higher percentile rankings indicate better function/quality of life. 50th percentile is the average of the general population and indicates half of respondents had a worse score. OBJECTIVE MEASURES WITH LEVEL OF FUNCTION: TMJ Observations Trismus: No Myofascial Restriction: sternocleidomastoid, upper trapezius, levator scapula Modified Foldi scale for rating HNL 0 no visible edema but patient reports heaviness 1a soft visible edema ; no pitting; revers (more content not included)... [facility] 03-28-2024 History of Present illness Narrative TEpisode Visit Count: 1 Therapist That Will Accept/Oversee The Plan Of Care: Kathleen Stovall Start of Care Date: 03/28/24 Onset Date: 03/18/24 Patient Identified by Name and Date of : Yes [facility] REHABILITATION AND SPORTS THERAPY OCCUPATIONAL THERAPY EVALUATION PLAN OF CARE: Assessment: Scarlet Mayer presents with face, submental and neck edema, scar adherence, jaw tightness neck and shoulder stiffness that interferes with heavy exertion, physical activities, recreational activities (functional neck movement, opening mouth wide for dental work) . Medical history is relevant for mets left neck , left lingual tonsillectomy, neck dissection, followed by radiation. He presents with impairments in ADL's, edema management, flexibility, independence in exercise, joint mobility, overall function, range of motion, symptom management, and tissue tenderness. PROMIS (Patient-Reported Outcomes Measurement Information System) scores were reviewed and identified as within normal limits. Prognosis for therapy is Good due to: current objective clinical presentation, good overall health status He will benefit from skilled therapy services to meet the goals established for this plan of care as noted below. Pt will benefit from complete decongestive therapy including manual lymphatic drainage, myofascial stretch, active range of motion exercises and compression garments. Pt exhibits potential to benefit from skilled occupational therapy for lymphedema management and address above stated impairments Goals for Episode of Care created on 03/28/24 through 05/23/24 Patient will increase pain free neck AROM by 5 deg to allow for neutral postural alignment, improved performance with ADL/IADL Patient will increase mandibular AROM equal to or greater than 50 mm in order to be able to open mouth for oral hygiene and dental procedures. Patient will demonstrate independence with home exercise program including self MLD, compression wrap/garment, desensitization, skin care guidelines, scar massage, ROM and strengthening exercises. Patient will decrease Neck Composite Score by 2% or greater for decreased risk of infection, improved rom and posture. Patient Goals: manage swelling and tightness Planned Interventions, Frequency, and Duration: Current Frequency: 1x/week Duration: 8 weeks Total Number of Visits Planned: 8 Planned Treatment Interventions: Therapeutic exercise (16640), Manual therapy (42040), Self-halfway management (78803) PLAN FOR NEXT VISIT:assess progress Patient demonstrates good understanding of plan of care and treatment. The above goals and plan of care were discussed and agreed upon by patient/family. 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 He completed adjuvant radiotherapy to the right neck on 05/10/21. He developed recurrence in the LEFT neck and underwent left lingual tonsillectomy, left 1A-5 neck dissection (09/28 nodes, up to on 02/23/24. 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 5 points is clinically meaningfully difference Percentiles provide an indication of how the patient's score ranks in relation to the general population. Higher percentile rankings indicate better function/quality of life. 50th percentile is the average of the general population and indicates half of respondents had a worse score. OBJECTIVE MEASURES WITH LEVEL OF FUNCTION: TMJ Observations Trismus: No Myofascial Restriction: sternocleidomastoid, upper trapezius, levator scapula Modified Foldi scale for rating HNL 0 no visible edema but patient reports heaviness 1a soft visible edema ; no pitting; reversible 1b soft pitting edema ; reversible 2 firm pitting edema ; not reversible; no tissue changes 3 Irreversible ; tissue changes Lymphedema Presents with: Swelling, Pain, Decreased knowledge of lymphedema management, Functional Limitations Skin: Skin Comments Skin Comments:: face and submental swelling, scar adherence, jaw tightness Stage of Lymphedema: 2 (Modified Foldi scale for rating HNL) Head and Neck Measurements Superior Neck (cm): 45.2 cm Middle Neck (cm): 43.5 cm Inferior Neck (cm): 44.5 cm R Tragus to mental protuberance (cm): 16 cm R Tragus to mouth angle (cm): 11.6 cm R Mandibular angle to nasal wing (cm): 12.8 cm R Mandibular angle to mental proturbance (cm): 12.5 cm Right Total facial composite (cm): 52.9 cm L Tragus to mental protuberance (cm): 16.5 cm L Tragus to mouth angle (cm): 12 cm L Mandibular angle to nasal wing (cm): 12 cm L Mandibular angle to mental proturbance (cm): 12 cm Left Total facial composite (cm): 52.5 cm Total Right and Left facial composite combined (cm): 105.4 cm Cervical Spine ROM Cervical ROM : Measurement AROM Cervical Flexion AROM (degrees) : 23 Degrees Cervical Extension AROM (degrees) : 21 Degrees Cervical Side-Bend Right AROM (degrees): 15 Degrees Cervical Side-Bend Left AROM (degrees) : 11 Degrees Cervical Rotation Right AROM (degrees) : 28 Degrees Cervical Rotation Left AROM (degrees) : 28 Degrees TMJ AROM Mandibular Opening (mm): 36 Millimeters Mandibular Lateral Excursion Right (mm): 5 Millimeters Mandibular Lateral Excursion Left (mm): 5 Millimeters UE AROM R Shoulder Flex: 156 Degrees L Shoulder Flex: 150 Degrees Education: Education Learning Preferences: Demonstration, Explanation, Performance, Printed Materials Barriers: None Learning/educational needs: Home exercise program, Lymphedema Program, Posture Education Provided: Yes, see treatment interventions for education provided Education Provided To: Patient Education Mode/Type: Demonstration, Explanation/Discussion, Literature/Printed Materials, Performance Response to Education/Teach Back: States/Identifies, Return Demonstration, Requires Review/Additional Education TREATMENT: OT Treatment Interventions : Therapeutic Exercise, Manual Therapy Evaluation Therapeutic Exercise: 1: *Neck stretches - levator scapulae, upper trapezius 2: *Standing- scapular stabilization/shoulder extension green T band 3: *Jaw exercises ( picture handout) 4: supiner stretch on foam roll* Skilled Intervention: Educated patient on home exercise program as above (*). Provided written instruction for home exercise program to facilitate proper performance and compliance. Correct performance of therapeutic exercises was facilitated with verbal cuing. Manual Therapy Lymphedema: 1: myofascial release 2: manual lymphatic drainage Neck : Myofascial stretch for release of scar tissue tension, muscle tension and joint mobilization: Trigger point release: sternocleidomastoid Cervical joint mobilization : low grade traction to the posterior cervical spine, grade I lateral horizontal mobilization to C3,4, 5 Tissue mobilization: waddle (platysma, digastrics, omohyoid) Trigger point release: external and intraorally- masseter, lateral and medial pterygoids. -.Side lying- Trigger point release- along nuchal line, splenius capitus, scalenes, levator scapulae Manual lymph drainage -Lateral head- manual lymph drainage- from superior to inferior along each side of the head- temporal zone, anterior ear zone, angle of jaw zone, submandibular zone Skilled Intervention: Manual skills to improve joint mobility, ROM, and decrease pain. Utilized anatomy knowledge of the therapist, and assessment of patient's response to intervention. Increase lymphatic fluid dynamics, increase skin extensibility and normalize sensation. Billing * Evaluation Low Complexity: 1 Unit Therapeutic Exercise Treatment Minutes: 20 Manual Therapy Treatment Minutes: 25 Skilled Treatment Time Minutes (timed and untimed codes): 70 Total Session Time (minutes): 70 Session Start Time : 829 Session Stop Time : 939 ROBERT Francis documented in this encounter [facility] 03-25-2024 History of Present illness Narrative Images from the original note were not included. [facility] NEW PATIENT VISIT Department of Hematology and Medical Oncology PATIENT NAME: Scarlet Mayer [facility] NO: [id number] DATE OF SERVICE: 03/25/2024 PCP: Tristian Pacheco MD REFERRING PROVIDER: Yosef Taylor MD DIAGNOSIS: Mucoepidermoid Carcinoma on Unknown Primary STAGE: Cancer Staging (Hyperlink to Activity) No matching staging information was found for the patient. REASON FOR VISIT: To discuss the role of systemic therapy in the management of his resected mucoepidermoid carcinoma ONCOLOGY HISTORY: 01/01 CT Neck with contrast performed on 01/04/21 revealed the following: Impression: There are 2 well-defined masses in the region of concern along the right side of the neck which most likely represent enlarged level 2A lymph nodes measuring up to 3.5 cm in greatest diameter. The lymph nodes may be reactive or may be involved with tumor or infiltrative process such as lymphoma. FDG PET Scan performed on 01/07/21 revealed the following: IMPRESSION: There is redemonstration of pathologically enlarged right level 2 and right lower 3 lymph nodes. There is mild increased FDG activity with a maximum SUV of 3.2 within the right level 3 posteriorly. There is asymmetric radiotracer accumulation within the right shoulder with focal cord posteriorly with a maximum SUV of 7.5. There is no focal masslike abnormality. Direct visualization is recommended. No additional abnormal FDG foci are noted. 02/01 Transoral partial pharyngectomy performed on 01/30/24 confirmed the presence of the following: A. Right pharynx, transoral partial pharyngectomy: - No tumor present. B. Right lingual tonsil, excision (B): - No tumor present. C. Lymph nodes, right neck level 2B, dissection: - Fifteen lymph nodes, negative for carcinoma (0/15). D. Lymph nodes, right neck level 1B and 2A, dissection: - Mucoepidermoid carcinoma (up to 3.7 cm) in two of four lymph nodes (2/4) (see comment). - Negative for extranodal extension. E. Lymph nodes, right neck levels 3, 4, and 5, dissection: - Mucoepidermoid carcinoma (up to 2.0 cm) in three of thirty-four lymph nodes (3/34) (see comment). - Negative for extranodal extension. F. Left tonsil, tonsillectomy: - No tumor present. Comments: A p16 immunohistochemical stain shows strong patchy positive staining but RNA in situ hybridization studies are negative for high-risk Human Papillomavirus. 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 No evidence for metastatic disease to the cervical spine. Multiple abnormal left level 2a lymph nodes as discussed suspicious for recurrent/residual neoplastic disease. 02/04 FDG PET Scan performed on 01/15/24 revealed the Following: IMPRESSION: There is redemonstration of pathologically enlarged right level 2 and right lower 3 lymph nodes. There is mild increased FDG activity with a maximum SUV of 3.2 within the right level 3 posteriorly. There is asymmetric radiotracer accumulation within the right shoulder with focal cord posteriorly with a maximum SUV of 7.5. There is no focal masslike abnormality. Direct visualization is recommended. No additional abnormal FDG foci are noted. 03/06 Left Tonsillectomy with left neck dissection performed on 02/23/24 confirmed the presence of the following: FINAL DIAGNOSIS Outside slides labeled [id number] (collected 02/23/2024) A. Left lingual tonsil, excision: -Benign tonsillar tissue. B. Left prefacial lymph node, biopsy: -Fibroadipose. C. Lymph nodes, left neck level 1A and 1B, dissection: -Three lymph nodes negative for carcinoma (0/3). -Unremarkable submandibular gland. D. Lymph nodes, left neck level 2A and 2B, dissection: -Metastatic mucoepidermoid carcinoma (2.6 cm) in one of seven lymph nodes (1/7), see comment. E. Lymph nodes, left neck level 3, 4 and 5, dissection: -Metastatic mucoepidermoid carcinoma (2.4 cm) in one of eight lymph nodes (1/8), see comment. Diagnosis Comment Although there is focal irregularity at the ilya periphery, definitive extranodal extension is not identified in my opinion. HISTORY OF PRESENT ILLNESS: Scarlet Mayer is a 48 year old man who was initially diagnosed with mucosal epidermoid carcinoma of unknown primary in 2020. He underwent a right partial pharyngectomy with right lingual tonsillectomy and left palatine tonsillectomy with right neck dissection on January 29, 2021 pathology review confirmed the presence of mucosal epidermoid carcinoma in multiple, right cervical lymph nodes without evidence of extranodal extension. He went on to receive postoperative radiation and has been undergoing active surveillance since that time. More recently, he underwent an MRI of the neck in December of this year which revealed new left level 2A lymph nodes concerning for recurrent carcinoma. These findings were confirmed on FDG PET imaging without any suggestion of distant metastasis. He subsequently underwent left tonsillectomy with left neck dissection on February 23, 2024 which confirmed the presence of recurrent mucoepidermoid carcinoma, again without definitive evidence of extranodal extension. He has met with Matt Morneal MD, Division of Radiation Oncology on March 18, 2024, who recommended postoperative radiation therapy. He presents today to discuss the role, if any, of systemic therapy in addition to postoperative radiation therapy. REVIEW OF SYSTEMS: As described above. All other systems were reviewed and were negative. ECOG PERFORMANCE STATUS: 0- Fully active, able to carry on all pre-disease performance w/o restriction. PAST MEDICAL HISTORY: PAST MEDICAL HISTORY No date: Head and neck cancer (HCC) 03/10/2021: Malignant neoplasm of salivary gland (HCC) PAST SURGICAL HISTORY: PAST SURGICAL HISTORY 01/29/2021: CO2 LASER Comment: Transoral-oral cavity cancer 01/29/2021: EXC/DSTRJ LINGUAL TONSIL ANY METHOD SPX; Right Comment: Pharyngectomy, Rt modified Radical neck dissection, Lt tonsil 2012: REMOVAL GALLBLADDER MEDICATIONS: multivitamin tablet Take 1 tablet by mouth once daily. iv contrast (will be provided with radiology test) CT Chest W -Inject, intravenously, once for 1 dose.No IV access, insert saline lock prior to the beginning of sedation, infusion, injection of imaging exam. Discontinue saline lock post exam. If Pt. has a central line or IVAD, may access for administration according to line specific nursing protocol. Once exam is complete flush line and de-access according to line specific nursing protocol in the CT contrast administration guidelines link. ibuprofen (MOTRIN) 200 mg tablet Take 400 mg by mouth every 6 hours as needed. ALLERGIES: ALLERGIES No Known Allergies FAMILY HISTORY: FAMILY HISTORY Problem Relation Age of Onset No Known Problems Mother No Known Problems Father No Known Problems Sister No Known Problems Brother Prostate Cancer Paternal Grandfather SOCIAL HISTORY: Patient is for 24 years; they have two sons ages 20 and 16. Tobacco: quit smoking 12 years ago after having smoked 1 pack per week for 15 years. 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 IMPRESSION: Mr. 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 He has undergone a salvage left neck dissection and is a candidate for postoperative radiation therapy. I explained to Mr. Tripp and his that there are no data to support the use of concurrent systemic therapy with radiation as it has never been shown to be more effective than radiation therapy, alone, in the setting. If he should have additional recurrences that are no longer amenable to local intervention such as surgery or radiation, we can reconvene at that time to discuss systemic options that may be available. PLAN: Proceed with postoperative radiation therapy No further medical oncology follow-up is planned at this time. All questions and concerns have been addressed. I spent a total of 45 minutes during this visit, which included preparing to see the patient, [id number] patient care, completing clinical documentation, obtaining and/or reviewing separately obtained history, counseling and educating the patient/family/caregiver (30 minutes), and ordering medications, tests, or procedures Jose Ortiz MD Medical Oncology March 25, 2024 Final recommendations will be communicated back to the requesting physician by way of the shared medical record, or letter to requesting physician via US mail. documented in this encounter [facility] 03-25-2024 Note HNO ID: [id number] Author: JOSE ORTIZ MD Service: ? Author Type: Physician Type: Progress Notes Filed: 04/08/2024 06:19 Note Text: [facility] NEW PATIENT VISIT Department of Hematology and Medical Oncology PATIENT NAME: Scarlet Mayer [facility] NO: [id number] DATE OF SERVICE: 03/25/2024 PCP: Tristian Pacheco MD REFERRING PROVIDER: Yosef Taylor MD DIAGNOSIS: Mucoepidermoid Carcinoma on Unknown Primary STAGE: Cancer Staging (Hyperlink to Activity) No matching staging information was found for the patient. REASON FOR VISIT: To discuss the role of systemic therapy in the management of his resected mucoepidermoid carcinoma ONCOLOGY HISTORY: 01/01 CT Neck with contrast performed on 01/04/21 revealed the following: Impression: There are 2 well-defined masses in the region of concern along the right side of the neck which most likely represent enlarged level 2A lymph nodes measuring up to 3.5 cm in greatest diameter. The lymph nodes may be reactive or may be involved with tumor or infiltrative process such as lymphoma. FDG PET Scan performed on 01/07/21 revealed the following: IMPRESSION: There is redemonstration of pathologically enlarged right level 2 and right lower 3 lymph nodes. There is mild increased FDG activity with a maximum SUV of 3.2 within the right level 3 posteriorly. There is asymmetric radiotracer accumulation within the right shoulder with focal cord posteriorly with a maximum SUV of 7.5. There is no focal masslike abnormality. Direct visualization is recommended. No additional abnormal FDG foci are noted. 02/01 Transoral partial pharyngectomy performed on 01/30/24 confirmed the presence of the following: A. Right pharynx, transoral partial pharyngectomy: - No tumor present. B. Right lingual tonsil, excision (B): - No tumor present. C. Lymph nodes, right neck level 2B, dissection: - Fifteen lymph nodes, negative for carcinoma (0/15). D. Lymph nodes, right neck level 1B and 2A, dissection: - Mucoepidermoid carcinoma (up to 3.7 cm) in two of four lymph nodes (2/4) (see comment). - Negative for extranodal extension. E. Lymph nodes, right neck levels 3, 4, and 5, dissection: - Mucoepidermoid carcinoma (up to 2.0 cm) in three of thirty-four lymph nodes (3/34) (see comment). - Negative for extranodal extension. F. Left tonsil, tonsillectomy: - No tumor present. Comments: A p16 immunohistochemical stain shows strong patchy positive staining but RNA in situ hybridization studies are negative for high-risk Human Papillomavirus. 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 No evidence for metastatic disease to the cervical spine. Multiple abnormal left level 2a lymph nodes as discussed suspicious for recurrent/residual neoplastic disease. 02/04 FDG PET Scan performed on 01/15/24 revealed the Following: IMPRESSION: There is redemonstration of pathologically enlarged right level 2 and right lower 3 lymph nodes. There is mild increased FDG activity with a maximum SUV of 3.2 within the right level 3 posteriorly. There is asymmetric radiotracer accumulation within the right shoulder with focal cord posteriorly with a maximum SUV of 7.5. There is no focal masslike abnormality. Direct visualization is recommended. No additional abnormal FDG foci are noted. 03/06 Left Tonsillectomy with left neck dissection performed on 02/23/24 confirmed the presence of the following: FINAL DIAGNOSIS Outside slides labeled [id number] (collected 02/23/2024) A. Left lingual tonsil, excision: -Benign tonsillar tissue. B. Left prefacial lymph node, biopsy: -Fibroadipose. C. Lymph nodes, left neck level 1A and 1B, dissection: -Three lymph nodes negative for carcinoma (0/3). -Unremarkable submandibular gland. D. Lymph nodes, left neck level 2A and 2B, dissection: -Metastatic mucoepidermoid carcinoma (2.6 cm) in one of seven lymph nodes (1/7), see comment. E. Lymph nodes, left neck level 3, 4 and 5, dissection: -Metastatic mucoepidermoid carcinoma (2.4 cm) in one of eight lymph nodes (1/8), see comment. Diagnosis Comment Although there is focal irregularity at the ilya periphery, definitive extranodal extension is not identified in my opinion. HISTORY OF PRESENT ILLNESS: Scarlet Mayer is a 48 year old man who was initially diagnosed with mucosal epidermoid carcinoma of unknown primary in 2020. He underwent a right partial pharyngectomy with right lingual tonsillectomy and left palatine tonsillectomy with right neck dissection on January 29, 2021 pathology review con (more content not included)... [facility] 03-25-2024 Nurse Note Additional intake questions: Has the patient had fever, nausea, vomiting, diarrhea, constipation, fatigue for > 1 week? No Does the patient have a decreased appetite? No Does patient have any new or increased numbness or tingling of extremities? No Is patient interested in fertility information? No Does patient need any prescription refills? No Does patient have an advanced directive in place? No, Patient refused referral to Social Work or Resource Center [facility] 03-25-2024 Nurse Note Additional intake questions: Has the patient had fever, nausea, vomiting, diarrhea, constipation, fatigue for > 1 week? No Does the patient have a decreased appetite? No Does patient have any new or increased numbness or tingling of extremities? No Is patient interested in fertility information? No Does patient need any prescription refills? No Does patient have an advanced directive in place? No, Patient refused referral to Social Work or Resource Center documented in this encounter [facility] 03-20-2024 Note HNO ID: [id number] Author: YOSEF TAYLOR MD Service: ? Author Type: Physician Type: Progress Notes Filed: 04/02/2024 06:41 Note Text: Radiation Oncology - Follow Up Note PATIENT NAME: Scarlet Mayer PATIENT DIAGNOSIS/PATIENT IDENTIFICATION: per note from Dr. 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 He completed adjuvant radiotherapy to the right neck (60Gy/30) on 05/10/21. He developed recurrence in the LEFT neck and underwent left lingual tonsillectomy, left 1A-5 neck dissection (2/15 nodes, up to 2.6cm, no definite RAJIV) on 02/23/24. Mr. 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 He is recovering without complication. 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 I reviewed his serial imaging and appreciate no clear primary site of disease. He has undergone bilateral tonsillectomies, BOT biopsies, nasoendoscopies, and multiple MRI/PET. I recommend adjuvant radiotherapy to the left neck (1B-5) to 60 Gy in 30 fractions given good regional control following his prior course. He is understandably motivated to avoid a third recurrence, and therefore elective irradiation of the left parotid could be considered, but I feel there is small additional benefit given his pattern of recurrence. He will discuss this with Dr. Taylor in the context of his preferences. He will meet with Dr. Ortiz to discuss the role of adjuvant systemic therapy for MEC.I will also refer him to lymphedema therapy.' He returns today to the radiation medicine clinic here in [place] to continue discussion regarding postoperative radiation therapy to the left head and neck and make local arrangements for treatment delivery. INTERVAL HISTORY: As above, Mr. Mayer underwent left neck dissection on 02/23/[address] Hill and reports recovering well and denies any postoperative complications with wound healing or infection. He does note some persistent discomfort along the jawline which continues to improve. He reports improving swallowing function and was able to eat hamburger slowly yesterday without any choking. ALLERGIES ALLERGIES No Known Allergies MEDICATIONS: Current Outpatient Medications: multivitamin tablet ibuprofen (MOTRIN) 200 mg tablet iv contrast (will be provided with radiology test) PHYSICAL EXAM: GENERAL: middle-aged gentleman sitting in chair in no acute distress. KPS: 90 HEENT: NC/AT, anicteric sclera HEART: S1S2 LUNGS: non-labored breathing ABDOMEN: soft MUSCULOSKELETAL: no peripheral edema, moves all extremities. NEURO: no focal deficit; AANDO X3. PATHOLOGIC DATA: 02/23/2024 RADIOLOGIC DATA: PET/CT (01/15/2024) IMPRESSION: Findings suggest a primary malignancy of the left lingual tonsils with no metastatic disease along the left level 2 and level 3 as above. No evidence of distant lymphadenopathy or metastatic disease, as above. Head and neck: Postsurgical changes are noted consistent with previous resection and lymph node dissection at the right lingual tonsils and within the right side of the neck. No residual right-sided lymphadenopathy is appreciated. There is an enlarged lymph node in the left level 2A measuring 1.5 x 2.4 cm in greatest axial dimension. There is increased FDG activity within maximum SUV of approximately 3.2. Additional prominent but smaller and less FDG avid lymph nodes are noted inferior to this. This is accompanied by soft tissue prominence in the left lingual tonsils partially effacing the left piriform sinus. There is increased FDG activity in this location with a maximum SUV of 3.2. MRI Neck (01/05/2024) IMPRESSION: Degenerative changes of the cervical spine as discussed. No evidence for metastatic disease to the cervical spine. Multiple abnormal left level 2a lymph nodes as discussed suspicious for recurrent/residual neoplastic disease. There are multiple abnormal enhancing nodules within the left neck at level 2a, with the largest measuring around 17 mm short axis. No distinct other abnormal cervical lymph nodes by size criteria. IMPRESSION: Mr. Mayer is a 48 year old male who underwent right partial pharyngectomy, right lingual tonsillectomy, left palatine tonsillectomy, and right neck dissection (1B-5) on 01/29/21 for pT0N2b [5/38 nodes, up to 3.7cm, no RAJIV, low-grade] cM (more content not included)... [facility] 03-20-2024 History of Present illness Narrative Radiation Oncology - Follow Up Note PATIENT NAME: Scarlet Mayer PATIENT Signed by: Yosef Taylor MD I spent a total of 40 minutes on the date of the service which included preparing to see the patient, [id number] patient care, and counseling and educating the patient/family/caregiver. This document has been created with the use of voice recognition technology. It may contain inaccuracies, misspellings, inaccurate syntax or inappropriate word context that are a result of the inadequacies/shortcomings of said technology/software. documented in this encounter [facility] 03-20-2024 History of Present illness Narrative SCARLET MAYER [id number] 03/20/2024 [facility] Radiation Oncology Department SIMULATION NOTE DATE OF SIMULATION: 03/20/2024 THERAPIST: Tia Vasquez MACHINE: [employer] mCT DIAGNOSIS: Malignant neoplasm of major salivary gland, [id number] AREA: NECK CONTRAST: IV Consent in Epic: Yes PT INJECTED WITH 100CC OMNIPAQUE 300 VIA THE LT AC PATIENT POSITION: Supine. FIXATION DEVICE: In order to achieve accurate and reproducible treatments, the patient is immobilized with ORFIT AIO, CUSTOM 5 PT MASK, CUSTOM MOUTHPIECE A time-out was conducted and recorded by the therapist. CT scan was completed for target localization and planning. Field arrangement will be determined after plan has been completed. The patient is scheduled for a verification simulation on the treatment machine to ensure proper set-up and field arrangement is correct prior to the first treatment of primary and boost ulloa if applicable. Patient education will be completed per nursing. Electronically Signed Yosef Taylor M.D. / SHAYY 1:26 PM documented in this encounter [facility] 03-20-2024 Note HNO ID: [id number] Author: YOSEF ATYLOR MD Service: ? Author Type: Physician Type: Progress Notes Filed: 03/20/2024 23:26 Note Text: SCARLET MAYER [id number] 03/20/2024 [facility] Radiation Oncology Department SIMULATION NOTE DATE OF SIMULATION: 03/20/2024 THERAPIST: Tia Vasquez MACHINE: [employer] mCT DIAGNOSIS: Malignant neoplasm of major salivary gland, [id number] AREA: NECK CONTRAST: IV Consent in Epic: Yes PT INJECTED WITH 100CC OMNIPAQUE 300 VIA THE LT AC PATIENT POSITION: Supine. FIXATION DEVICE: In order to achieve accurate and reproducible treatments, the patient is immobilized with ORFIT AIO, CUSTOM 5 PT MASK, CUSTOM MOUTHPIECE A time-out was conducted and recorded by the therapist. CT scan was completed for target localization and planning. Field arrangement will be determined after plan has been completed. The patient is scheduled for a verification simulation on the treatment machine to ensure proper set-up and field arrangement is correct prior to the first treatment of primary and boost ulloa if applicable. Patient education will be completed per nursing. Electronically Signed Yosef Taylor M.D. / NRS 1:26 PM [facility] 03-20-2024 Note HNO ID: [id number] Author: YOSEF TAYLOR MD Service: ? Author Type: Physician Type: Progress Notes Filed: 04/25/2024 04:18 Note Text: SCARLET MAYER [id number] 03/20/2024 [facility] Department of Radiation Oncology Treatment Planning Note For reasons stated in the consult note, Scarlet Mayer is a candidate for radiation therapy. Based on review and interpretation of the relevant diagnostic studies together with the exam findings, Scarlet Mayer was simulated on 03/20/2024 at which time the target volume and/or requisite ulloa were delineated, as indicated in the simulation note, to be treated according to the prescription. The treatment target and organs at risk were contoured on the simulation scan using the fused MRI AND PET. Special consideration to these and other structures was given in light of the potential for increased toxicities. After reviewing multiple treatment plans with dosimetry, the best plan was approved to deliver the prescribed course of radiation to the target area using inverse planning to allow for the best isodose distribution, treating to the 97.3% isodose line with 6 MV and 4 ulloa. Custom MLCs for IMRT were the treatment devices used to shape/modify the beams. Limiting dose to normal tissue was confirmed upon review of the calculated dose volume histogram. IMRT planning was used because it best met the dose/volume constraints for the organs at risk for this patient, better than what could be achieved using conventional or 3D planning. The specific dose requirements for the PTV, organs at risk and dose-volume histograms are contained in this treatment plan and/or elsewhere in the medical record. A completed summary of this plan dated 04/10/2024 incorporated herein by reference includes dose, beam arrangements, energy, blocking, isodose distribution, and/or ports and DVH. Electronically Signed Yosef Taylor M.D. 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 He completed adjuvant radiotherapy to the right neck (60Gy/30) on 05/10/21. He developed recurrence in the LEFT neck and underwent left lingual tonsillectomy, left 1A-5 neck dissection (2/15 nodes, up to 2.6cm, no definite RAJIV) on 02/23/24. HPI: 48 year old male who presents with the above diagnosis, for an opinion regarding the role of radiation therapy in the management of the patient's disease. Final recommendations will be communicated back to the requesting physician by way of the shared medical record, or letter to requesting physician via mail. 01/04/21: Presented with right neck mass. CTA neck demonstrated two nodes in right level 2A measuring up to 3.5cm. 01/07/21: PET showed pathologically enlarged right level 2 and right lower 3 lymph nodes with mild increased FDG activity with a maximum SUV of 3.2 within the right level 3 posteriorly. There was asymmetric radiotracer accumulation within the right shoulder with maximum SUV of 7.5. 01/29/21: Right partial pharyngectomy, right lingual tonsillectomy, left palatine tonsillectomy, and right neck dissection (1B-5) for pT0N2b [5/38 nodes, up to 3.7cm, no RAJIV, intermediate-grade] cM0 mucoepidermoid carcinoma of unknown primary. No primary site identified. 05/10/21: PORT to right neck 1B-5, 60 Gy in 30 fractions under care of Dr. Taylor. 07/2021-04/2022: No evidence of disease recurrence. Stable 2mm CHIO nodule. 01/05/24: MRI neck showed degenerative changes of the spine, with incidental enlarged left 2A nodes. MRI neck showed no primary site. FNA of left neck mass showed recurrent MEC. 01/15/24: PET showed suggested primary malignancy of the left lingual tonsils. No evidence of distant lymphadenopathy or metastatic disease. 02/23/24: Left lingual tonsillectomy, left prefacial lymph node biopsy, left 1A-5 neck dissection. This demonstrated 2/15 nodes involved with metastatic MEC measuring up to 2.6cm. Today, Mr. Mayer presents with his . He is recovering well from surgery. Taking motrin for pain and eating soft solids. Reports some trismus, jaw tightness, neck tightness, and neck edema. No facial numbness, weakness, bleeding, dysphagia, or aspiration. REVIEW OF SYSTEMS: Pertinent positives and negatives listed above in HPI. A complete review of systems was otherwise negative. ALLERGIES: Allergies: No Known Allergies MEDICATIONS: Current Outpatient Medications: multivitamin tablet iv contrast (will be provided with radiology test) ibuprofen (MOTRIN) 200 mg tablet PRIOR RADIOTHERAPY: yes, per hpi Implanted or external electronic device: none Collagen vascular disease or inflammatory bowel disease: none PAST MEDICAL HISTORY: PAST MEDICAL HISTORY No date: Head and neck cancer (HCC) 03/10/2021: Malignant neoplasm of salivary gland (HCC) PAST SURGICAL HISTORY: PAST SURGICAL HISTORY 01/29/2021: CO2 LASER Comment: Transoral-oral cavity cancer 01/29/2021: EXC/DSTRJ LINGUAL TONSIL ANY METHOD SPX; Right Comment: Pharyngectomy, Rt modified Radical neck dissection, Lt tonsil 2012: REMOVAL GALLBLADDER FAMILY HISTORY: FAMILY HISTORY Problem Relation Age of Onset No Known Problems Mother No Known Problems Father No Known Problems Sister No Known Problems Brother Prostate Cancer Paternal Grandfather SOCIAL HISTORY: Scarlet Mayer is and lives in [place] with his . Smoked 0.25ppd for 16 years and quit in 2011. PHYSICAL EXAM: VS: BP 144/84 Pulse 66 Temp 36.6 C (97.9 F) (Temporal) Resp 18 Wt 106 kg (233 lb 11 oz) SpO2 98% BMI 33.53 kg/m KPS: 90 CONSTITUTIONAL: Alert, oriented, and in no acute distress. HEAD AND FACE: No obvious masses. Anicteric sclera. ORAL CAVITY AND OROPHARYNX: Dry mucosa. Palate elevates normally. Tongue soft, mobile, and midline. There are no visible or palpable mucosal lesions. TRISMUS: Mild DENTITION: Good LYMPH NODES: Status-post bilateral neck dissections. No palpable TEDDY. No wound drainage. Lymphedema present. PULMONARY: Non-labored breathing. No wheezing. CARDIOVASCULAR: Regular heart rate. SKIN: No rash, discoloration, ulceration, or masses. MUSCULOSKELETAL: Normal gait. NEURO: CN 3-12 intact. Moving all extremities equally. Last Wt 03/18/24 : 106 kg (233 lb 11 oz) 11/24/22 : 108.9 kg (240 lb) 05/16/22 : 107.3 kg (236 lb 9.6 oz) 10/22/21 : 108.9 kg (240 lb) 06/21/21 : 105.2 kg (232 lb) FLEXIBLE NASOPHARYNGOLARYNGOSCOPY: PROCEDURE NOTE: Recommend flexible nasopharyngolaryngoscopy. Risks, benefits, personnel and alternatives were explained. The patient wished to proceed. They were re-identified and a time out obtained. PROCEDURE: Flexible nasopharyngolaryngoscopy. PREOPERATIVE DIAGNOSIS: Same as above. INDICATIONS: Evaluation of the nasopharynx, oropharynx, hypopharynx, and larynx - unable to be visualized adequately by mirror examination due to gag reflex. ANESTHESIA: Lidocaine 2% and Timothy-Synephrine % PROCEDURE: With the patient sitting upright, informed consent was obtained. After applying topical decongestion and anesthesia to the right nasal cavity, the nasopharyngoscope was inserted into the nasal passage. The nasal cavity, nasopharynx, oropharynx, hypopharynx, and larynx were visualized. The scope was then removed. The patient tolerated the procedure well without complications. FINDINGS: Normal nasal cavity and mucosa. No masses or lesions in the nasopharynx. Normal torus and Eustacian tubes bilaterally. No masses or lesions on the soft palate or pharyngeal landa. Status-post bilateral palatine tonsillectomies and bilateral lingual tonsillectomies. Healing left BOT. No primary site visualized. Normal base of tongue, vallecula, and epiglottis. No pooling of secretions. Normal aryepiglottic folds, arytenoid cartilages, pyriform sinuses, and false vocal cords. True vocal cords were free of lesions with movement intact bilaterally. Matt Monreal MD performed this entire procedure. LABORATORY DATA: IMAGING: I reviewed the imaging described above. 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 Left lingual tonsil, excision: -Benign tonsillar tissue. B. Left prefacial lymph node, biopsy: -Fibroadipose. C. Lymph nodes, left neck level 1A and 1B, dissection: -Three lymph nodes negative for carcinoma (0/3). -Unremarkable submandibular gland. D. Lymph nodes, left neck level 2A and 2B, dissection: -Metastatic mucoepidermoid carcinoma (2.6 cm) in one of seven lymph nodes (1/7), see comment. E. Lymph nodes, left neck level 3, 4 and 5, dissection: -Metastatic mucoepidermoid carcinoma (2.4 cm) in one of eight lymph nodes (1/8), see comment. 01/29/21: Outside slides [id number], 01/29/2021, [facility], [facility] A. Right pharynx, transoral partial pharyngectomy: - No tumor present. B. Right lingual tonsil, excision (B): - No tumor present. C. Lymph nodes, right neck level 2B, dissection: - Fifteen lymph nodes, negative for carcinoma (0/15). D. Lymph nodes, right neck level 1B and 2A, dissection: - Mucoepidermoid carcinoma (up to 3.7 cm) in two of four lymph nodes (2/4) (see comment). - Negative for extranodal extension. E. Lymph nodes, right neck levels 3, 4, and 5, dissection: - Mucoepidermoid carcinoma (up to 2.0 cm) in three of thirty-four lymph nodes (3/34) (see comment). - Negative for extranodal extension. F. Left tonsil, tonsillectomy: - No tumor present. 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 He completed adjuvant radiotherapy to the right neck (60Gy/30) on 05/10/21. He developed recurrence in the LEFT neck and underwent left lingual tonsillectomy, left 1A-5 neck dissection (2/15 nodes, up to 2.6cm, no definite RAJIV) on 02/23/24. Mr. 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 He is recovering without complication. 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 I reviewed his serial imaging and appreciate no clear primary site of disease. He has undergone bilateral tonsillectomies, BOT biopsies, nasoendoscopies, and multiple MRI/PET. I recommend adjuvant radiotherapy to the left neck (1B-5) to 60 Gy in 30 fractions given good regional control following his prior course. He is understandably motivated to avoid a third recurrence, and therefore elective irradiation of the left parotid could be considered, but I feel there is small additional benefit given his pattern of recurrence. He will discuss this with Dr. Taylor in the context of his preferences. He will meet with Dr. Ortiz to discuss the role of adjuvant systemic therapy for MEC.I will also refer him to lymphedema therapy. Plan: - Refer to [facility] lymphedema therapy - Recommend adjuvant RT to left 1B-5 to 60 Gy in 30 fractions. Consider elective treatment of left parotid, though unlikely to represent primary site of disease. - Consult with Dr. Ortiz - Recommend evaluation with local dentist - Follow-up with Dr. Taylor for radiotherapy. Follow-up with me as needed. Signed by: Matt Monreal MD I spent 60 minutes in the visit, with more than 50% of the total [id number]-przo time of the visit in counseling / coordination of care. cc: Tristian Pacheco ([facility]) [address] [facility] [place] [id number] Yosef Taylor [address] [place] [address] [place] [id number] documented in this encounter [facility] 03-18-2024 Note HNO ID: [id number] Author: MATT MONREAL MD Service: ? 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 He completed adjuvant radiotherapy to the right neck (60Gy/30) on 05/10/21. He developed recurrence in the LEFT neck and underwent left lingual tonsillectomy, left 1A-5 neck dissection (2/15 nodes, up to 2.6cm, no definite RAJIV) on 02/23/24. HPI: 48 year old male who presents with the above diagnosis, for an opinion regarding the role of radiation therapy in the management of the patient's disease. Final recommendations will be communicated back to the requesting physician by way of the shared medical record, or letter to requesting physician via mail. 01/04/21: Presented with right neck mass. CTA neck demonstrated two nodes in right level 2A measuring up to 3.5cm. 01/07/21: PET showed pathologically enlarged right level 2 and right lower 3 lymph nodes with mild increased FDG activity with a maximum SUV of 3.2 within the right level 3 posteriorly. There was asymmetric radiotracer accumulation within the right shoulder with maximum SUV of 7.5. 01/29/21: Right partial pharyngectomy, right lingual tonsillectomy, left palatine tonsillectomy, and right neck dissection (1B-5) for pT0N2b [5/38 nodes, up to 3.7cm, no RAJIV, intermediate-grade] cM0 mucoepidermoid carcinoma of unknown primary. No primary site identified. 05/10/21: PORT to right neck 1B-5, 60 Gy in 30 fractions under care of Dr. Taylor. 07/2021-04/2022: No evidence of disease recurrence. Stable 2mm CHIO nodule. 01/05/24: MRI neck showed degenerative changes of the spine, with incidental enlarged left 2A nodes. MRI neck showed no primary site. FNA of left neck mass showed recurrent MEC. 01/15/24: PET showed suggested primary malignancy of the left lingual tonsils. No evidence of distant lymphadenopathy or metastatic disease. 02/23/24: Left lingual tonsillectomy, left prefacial lymph node biopsy, left 1A-5 neck dissection. This demonstrated 2/15 nodes involved with metastatic MEC measuring up to 2.6cm. Today, Mr. Mayer presents with his . He is recovering well from surgery. Taking motrin for pain and eating soft solids. Reports some trismus, jaw tightness, neck tightness, and neck edema. No facial numbness, weakness, bleeding, dysphagia, or aspiration. REVIEW OF SYSTEMS: Pertinent positives and negatives listed above in HPI. A complete review of systems was otherwise negative. ALLERGIES: Allergies: No Known Allergies MEDICATIONS: Current Outpatient Medications: multivitamin tablet iv contrast (will be provided with radiology test) ibuprofen (MOTRIN) 200 mg tablet PRIOR RADIOTHERAPY: yes, per hpi Implanted or external electronic device: none Collagen vascular disease or inflammatory bowel disease: none PAST MEDICAL HISTORY: PAST MEDICAL HISTORY No date: Head and neck cancer (HCC) 03/10/2021: Malignant neoplasm of salivary gland (HCC) PAST SURGICAL HISTORY: PAST SURGICAL HISTORY 01/29/2021: CO2 LASER Comment: Transoral-oral cavity cancer 01/29/2021: EXC/DSTRJ LINGUAL TONSIL ANY METHOD SPX; Right Comment: Pharyngectomy, Rt modified Radical neck dissection, Lt tonsil 2012: REMOVAL GALLBLADDER FAMILY HISTORY: FAMILY HISTORY Problem Relation Age of Onset No Known Problems Mother No Known Problems Father No Known Problems Sister No Known Problems Brother Prostate Cancer Paternal Grandfather SOCIAL HISTORY: Scarlet Mayer is and lives in [place] with his . Smoked 0.25ppd for 16 years and quit in 2011. PHYSICAL EXAM: VS: BP 144/84 Pulse 66 Temp 36.6 ?C (97.9 ?F) (Temporal) Resp 18 Wt 106 kg (233 lb 11 oz) SpO2 98% BMI 33.53 kg/m? KPS: 90 CONSTITUTIONAL: Alert, oriented, and in no acute distress. HEAD AND FACE: No obvious masses. Anicteric sclera. ORAL CAVITY AND OROPHARYNX: Dry mucosa. Palate elevates normally. Tongue soft, mobile, and midline. There are no visible or palpable mucosal lesions. TRISMUS: Mild DENTITION: Good LYMPH NODES: Status-post bilateral neck dissections. No palpable TEDDY. No wound drainage. Lymphedema present. PULMONARY: Non-labored breathing. No wheezing. CARDIOVASCULAR: Regular heart rate. SKIN: No rash, discoloration, ulceration, or masses. MUSCULOSKELETAL: Normal gait. NEURO: CN 3-12 intact. Moving all extremities equally. Last Wt 03/18/24 : 106 kg (233 lb 11 oz) 11/24/22 : 108.9 kg (240 lb) 05/16/22 : 107.3 (more content not included)... [facility] 03-18-2024 Nurse Note Additional intake questions: Has the patient had fever, nausea, vomiting, diarrhea, constipation, fatigue for > 1 week? No Does the patient have a decreased appetite? No Does patient have any new or increased numbness or tingling of extremities? No Is patient interested in fertility information? No Does patient need any prescription refills? No Does patient have an advanced directive in place? No, Patient refused referral to Social Work or Resource Center [facility] 03-18-2024 Nurse Note Additional intake questions: Has the patient had fever, nausea, vomiting, diarrhea, constipation, fatigue for > 1 week? No Does the patient have a decreased appetite? No Does patient have any new or increased numbness or tingling of extremities? No Is patient interested in fertility information? No Does patient need any prescription refills? No Does patient have an advanced directive in place? No, Patient refused referral to Social Work or Resource Center documented in this encounter [facility] 03-12-2024 Telephone encounter Note Patient is scheduled. [facility] 03-12-2024 Miscellaneous Notes Patient is scheduled. Email sent to cancer answer line. Emailed cc'd to you clif Per Dr Taylor, he would like pt to be seen by rad onc and med onc at [facility] for their opinion/recommendation. Please make referral and pt should be seen same day. Rad onc requested- Dr Matt Monreal, Med Onc- someone specializing in H&N treatment. Please contact pt with appts. Dr Taylor is happy to speak to him if he has questions about this. HERNANDEZ- please sign these new orders. Sahra Infante, JUDY Path sent for 2nd opinion Amanda ronquillo'cing you in this incase if gets to that point thanks. Records scanned. PET/CT images are uploaded, just waiting for the images from [facility] to come over. Dr Taylor spoke to Dr Hill regarding pt. Pt has new H&N Cancer on the opposite side of where we treated. He would like us to get all records and imaging including images. He would also like all notes and pathology report. He would like pathology sent for an over read thru [facility]. Once he has had a chance to review everything, he will let us know what appts pt needs and what to coordinate. Dr Taylor- Please sign order for pathology overread. Do you want Med onc consult arranged now due to it taking a few weeks for appt? If yes- sign that order too please. Prior pt of Dr Sushil Dominguez- Please request all imaging from [facility]. I did request the PET from [facility] to be pushed over. We will need to ask film library to process these ABEL. Records in HERNANDEZ folder to scan when you're available. I believe I printed everything. Tiff- Please arrange pathology overread once order is signed. Records including Path report are in for Angelica to scan. Done at [facility]. Also please keep an eye on if he orders the med onc consult so we can get this process started as well for Dr kincaid. He is known to him, but last appt was 2020. Thank you all! Sahra Infante, RN documented in this encounter [facility] 03-06-2024 Telephone encounter Note Email sent to cancer answer line. Emailed cc'd to you clif [facility] 03-05-2024 Telephone encounter Note Per Dr Taylor, he would like pt to be seen by rad onc and med onc at [facility] for their opinion/recommendation. Please make referral and pt should be seen same day. Rad onc requested- [facility]- someone specializing in H&N treatment. Please contact pt with appts. Dr Taylor is happy to speak to him if he has questions about this. HERNANDEZ- please sign these new orders. Sahra Infante, RN [facility] 03-05-2024 Telephone encounter Note Path sent for 2nd opinion Tiff c'cing you in this incase if gets to that point thanks. [facility] 03-05-2024 Telephone encounter Note Records scanned. PET/CT images are uploaded, just waiting for the images from [facility] to come over. [facility] 03-04-[address] Taylor spoke to Dr Hill regarding pt. Pt has new H&N Cancer on the opposite side of where we treated. He would like us to get all records and imaging including images. He would also like all notes and pathology report. He would like pathology sent for an over read thru [facility]. Once he has had a chance to review everything, he will let us know what appts pt needs and what to coordinate. Dr Taylor- Please sign order for pathology overread. Do you want Med onc consult arranged now due to it taking a few weeks for appt? If yes- sign that order too please. Prior pt of Dr Sushil Dominguez- Please request all imaging from [facility]. I did request the PET from [facility] to be pushed over. We will need to ask film library to process these ABEL. Records in HERNAN[facility]Z folder to scan when you're available. I believe I printed everything. Tiff- Please arrange pathology overread once order is signed. Records including Path report are in for Angelica banda scan. Done at [facility]. Also please keep an eye on if he orders the med onc consult so we can get this process started as well for Dr kincaid. He is known to him, but last appt was 2020. Thank you all! Sahra Infante, RN [facility] 11-24-2022 History of Present illness Narrative Radiation Oncology - Follow Up Note PATIENT NAME: Scarlet Mayer PATIENT DIAGNOSIS/PATIENT IDENTIFICATION: Mr. 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 Hill on 01/29/2021. Pathology noted no evidence of malignancy in either tonsil or pharyngectomy specimen and reported 5 lymph nodes positive for metastatic low-grade mucoepidermoid carcinoma largest measuring 3.7 cm with possible extracapsular extension in multiple nodes. Case was reviewed at the multidisciplinary tumor board with confirmation of low-grade mucoepidermoid tumor without extranodal extension and consensus recommendation for ipsilateral postoperative radiation therapy alone which he completed on 05/10/2021 (6000 cGy in 30 fractions). INTERVAL HISTORY/ROS: Mr. Mayer returns to clinic today for routine follow-up approximately a year and a half after the completion of his radiation treatments and six months since his last visit on 05/16/2023. In the interim, he has been following regularly with Dr. Hill with no concerns on his most recent head and neck examination. Today reports no pain/discomfort in the head and neck area except sensitivity to cold especially behind the ear. He also notes occasional stiffness in the neck but no substantial imitations and range of motion. He reports no change in hearing but does note persistent tinnitus. His skin is well-healed with no breakdown and he reports no new lumps or bumps in the neck. He does have occasional dry mouth but notes intact taste and swallowing and reports no sores or ulcers in the mouth. He endorses stable energy as he continues with his normal activities with good appetite and hydration and stable weight. He otherwise denies any recent fevers, chills, headaches, difficulty with speech/swallowing, shortness of breath, chest pain/palpitations, abdominal pain, nausea, vomiting, change in bowel/urinary habits, difficulty with gait/balance, recent falls, etc. The remainder of the review of systems was performed and was otherwise noncontributory. ALLERGIES ALLERGIES No Known Allergies MEDICATIONS: Current Outpatient Medications: multivitamin tablet ibuprofen (MOTRIN) 200 mg tablet iv contrast (will be provided with radiology test) PHYSICAL EXAM: GENERAL: Middle-aged gentleman sitting in chair in no acute distress. VITALS: BP 142/98 Pulse 66 Temp 96.7 Resp 16 Wt 240 lb (108.9kg) SpO2 95% KPS: 90 HEENT: NC/AT, anicteric sclera HEART: S1S2 LUNGS: non-labored breathing ABDOMEN: soft MUSCULOSKELETAL: no peripheral edema, moves all extremities. NEURO: no focal deficit; A&O X3. ASSESSMENT AND PLAN: Mr. 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 Hill on 01/29/2021. Pathology noted no evidence of malignancy in either tonsil or pharyngectomy specimen and reported 5 lymph nodes positive for metastatic low-grade mucoepidermoid carcinoma largest measuring 3.7 cm with possible extracapsular extension in multiple nodes. Case was reviewed at the multidisciplinary tumor board with confirmation of low-grade mucoepidermoid tumor without extranodal extension and consensus recommendation for ipsilateral postoperative radiation therapy alone which he completed on 05/10/2021 (6000 cGy in 30 fractions). Mr. Mayer is doing well clinically approximately a year and a half out from the completion of his postoperative radiation treatments to the head and neck with no significant residual sequela at this time. His most recent head and neck exam with Dr. Hill was without concern for recurrent disease. As he is stable at this point from a radiation standpoint, he will continue his surveillance with Dr. Hill and have an open follow-up with us here in the radiation medicine clinic. The patient is aware to contact the clinic in the interim should any questions or concerns arise. Thank you for allowing us to participate in the care of this patient. Signed by: Yosef Taylor MD I spent a total of 20 minutes on the date of the service which included preparing to see the patient, [id number] patient care, and counseling and educating the patient/family/caregiver. This document has been created with the use of voice recognition technology. It may contain inaccuracies, misspellings, inaccurate syntax or inappropriate word context that are a result of the inadequacies/shortcomings of said technology/software. documented in this encounter [facility] 05-26-2022 Miscellaneous Notes Appointments have been adjusted & confirmed with Paige. Tao Haq MD Denisse Quintanilla LPN; Sahra Infante, JUDY Please move up patients neck scan (cancel chest CT) to three months from the last scan and let the patient know. Thanks! HERNANDEZ PSS- please adjust and contact pt. Sahra Infante RN documented in this encounter [facility] 05-16-2022 History of Present illness Narrative Radiation Oncology - Follow Up Note PATIENT NAME: Scarlet Mayer PATIENT Signed by: Yosef Taylor MD I spent a total of 20 minutes on the date of the service which included preparing to see the patient, [id number] patient care, and counseling and educating the patient/family/caregiver. This document has been created with the use of voice recognition technology. It may contain inaccuracies, misspellings, inaccurate syntax or inappropriate word context that are a result of the inadequacies/shortcomings of said technology/software. documented in this encounter [facility] 05-11-2022 History of Present illness Narrative Radiology Service Progress Note DATE OF SERVICE: May 11, 2022 TIME: 9:12 AM PATIENT WEIGHT: 233 LBS PATIENT IDENTITY VERIFICATION COMPLETED USING TWO (2) STANDARD IDENTIFIERS: Name and Date of confirmed by patient verbally. FALL SCREENING: Has the patient had 2 falls in the last year or 1 fall with injury or currently using an Ambulatory Assistive Device (Walker, Cane, Wheelchair, Crutches, etc.)? No PATIENT GENDER DATA: Male ALLERGIES: Reviewed and unchanged CONTRAST ALLERGY: No EXAM: CT -CONTRAST INDUCED NEPHROPATHY RISK FACTORS: Not applicable CREATININE: Creatinine Date Value Ref Range Status 07/16/2021 1.10 0.73 - 1.22 mg/dL Final 02/18/2021 1.09 0.73 - 1.22 mg/dL Final eGFR-All Other Races Date Value Ref Range Status 07/16/2021 >60 . Final Comment: eGFR (Estimated GFR) Units of measure: mL/min/1.73 meters squared eGFR is derived from the reexpressed MDRD Study equation using the following parameters: serum creatinine, age, gender and race. The creatinine assay has been calibrated to be traceable to IDMS. An eGFR <60 mL/min/1.73m2 for >3 months is consistent with chronic kidney disease. Refer to KDOQI guidelines for clinical interpretation. In patients with unstable renal function, e.g. those with acute kidney injury, the eGFR may not accurately reflect actual GFR. Note: On 10/09/2021, the eGFR calculation will be updated to the NKF-ASN Task Force recommended 2020 CKD-EPI creatinine equation which does not include a race variable. For more information or to access a 2020 CKD-EPI calculator, visit the National Kidney [employer] website at kidney.org/professionals/kdoqi/gf r_calculator. eGFR- Date Value Ref Range Status 07/16/2021 >60 Final P.O.C.T. RESULTS: N/A May 11, 2022 TREATMENT: N/A IV SITE: Ambulatory: A peripheral IV was started in the Right antecubital site with a Angio cath: 20 gauge. IV SITE APPEARANCE: Clean,Dry and Intact SIGNATURE: Suzie French RN PATIENT NAME: Scarlet Mayer DATE: May 11, 2022 TIME: 9:12 AM Radiology Service Progress Note PATIENT NAME: Scarlet Mayer DATE OF SERVICE: May 11, 2022 TIME: 9:24 AM PATIENT IDENTITY VERIFICATION COMPLETED USING TWO (2) IDENTIFIERS: Name and Date of confirmed by patient verbally. FALL SCREENING: Has the patient had 2 falls in the last year or 1 fall with injury or currently using an Ambulatory Assistive Device (Walker, Cane, Wheelchair, Crutches, etc.)? No PATIENT GENDER DATA: Male PATIENT RELEVANT IMPLANT DATA REVIEWED: Not Applicable RADIOLOGY DEPARTMENT: CT; Exam(s) Completed: Chest and Neck PERIPHERAL IV DATA: Site assessment: Clean,Dry and Intact, Site disposition Discontinued SIGNED BY: RT Lianne(R) May 11, 2022 9:24 AM documented in this encounter [facility] 04-26-2022 Miscellaneous Notes Called and spoke with patients r/s appointments with her. Thanks! Images from the original note were not included. Nilsa: Will you please call Hiro or Paige to reschedule his CT scheduled 05/02/22. Dr. Taylor is recommending pushing it back 1-2 weeks after patient is feeling better from cold/sinus symptoms. Thanks BHAVNA Hopkins MD You 15 hours ago (5:56 PM) Would wait a week or two after he's feeling better. Thanks! HERNANDEZ Paige, pt's , called stating that Hiro is scheduled for a CT chest/neck 05/02/22. She has concerns that Hiro has not felt well over the last week or so with a cough, nasal congestion, and fatigue. No fever present. Their children had the same symptoms and tested negative for Covid and Hiro refused to test--stating he has the same thing the kids have. Paige is wondering if Hiro should reschedule his CT until after he is feeling well. Please advise. Denisse Ervin LPN documented in this encounter [facility] 10-22-2021 History of Present illness Narrative Radiation Oncology - Follow Up Note PATIENT NAME: Scarlet Mayer PATIENT DIAGNOSIS/PATIENT IDENTIFICATION: Mr. 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 Hill on 01/29/2021. Pathology noted no evidence of malignancy in either tonsil or pharyngectomy specimen and reported 5 lymph nodes positive for metastatic low-grade mucoepidermoid carcinoma largest measuring 3.7 cm with possible extracapsular extension in multiple nodes. Case was reviewed at the multidisciplinary tumor board with confirmation of low-grade mucoepidermoid tumor without extranodal extension and consensus recommendation for ipsilateral postoperative radiation therapy alone which he completed on 05/10/2021 (6000 cGy in 30 fractions). INTERVAL HISTORY/ROS: Mr. Mayer returns to clinic today for routine follow-up approximately six months after the completion of his radiation treatments and three months since his last evaluation on 07/20/2021. In the interim, he had repeat imaging with CT neck and chest on 10/12/2021 with the former showing stable posttreatment changes with no evidence of disease recurrence/progression in the latter also showing stability with no change in the 2 mm left upper lobe nodule seen on prior scan. He reports being evaluated by Dr. Hill approximately 3 weeks ago and reports no concerns for disease recurrence on exam. Today he reports doing well denies any pain/discomfort in the head and neck area but does note some residual tightness in the neck with range of motion which continues to improve. He denies any sores or ulcers in the mouth or dry mouth with fairly intact taste. His skin is intact with no breakdown and he reports no new lumps or bumps in the area. He uses a moisturizer 1-2 times a week. He report swallowing well without choking sensation and reports being able to eat all consistencies. Reports good energy as he continues to work with good appetite and hydration and stable weight. Every once in a while he does note some discomfort in the area of the right ear. He otherwise denies any recent fevers, chills, headaches, difficulty with speech/swallowing, shortness of breath, chest pain/palpitations, abdominal pain, nausea, vomiting, change in bowel/urinary habits, difficulty with gait/balance, recent falls, etc. The remainder of the review of systems was performed and was otherwise noncontributory. ALLERGIES ALLERGIES No Known Allergies MEDICATIONS: Current Outpatient Medications: multivitamin tablet ibuprofen (MOTRIN) 200 mg tablet iv contrast (will be provided with radiology test) PHYSICAL EXAM: GENERAL: middle-aged gentleman sitting in chair in no acute distress. VITALS: BP 135/92 Pulse 69 Temp 98.1 Resp 16 Wt 240 lb (108.9kg) SpO2 95% KPS: 90 HEENT: NC/AT, anicteric sclera NECK: no lympadenopathy; mild post-radiation pigment changes without skin breakdown. HEART: S1S2 LUNGS: non-labored breathing ABDOMEN: soft MUSCULOSKELETAL: no peripheral edema, moves all extremities. NEURO: no focal deficit; A&O X3. RADIOLOGIC DATA: CT Neck (10/12/2021) IMPRESSION: Stable postoperative and posttreatment changes as discussed. No clear evidence for disease progression/recurrence. CT Chest (10/12/2021) IMPRESSION: Stable CT of the chest. Unchanged appearance of left upper lobe 2 mm nodule. No new or enlarging nodules are seen. No evidence of bulky intrathoracic lymphadenopathy. ASSESSMENT AND PLAN: Mr. 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 Hill on 01/29/2021. Pathology noted no evidence of malignancy in either tonsil or pharyngectomy specimen and reported 5 lymph nodes positive for metastatic low-grade mucoepidermoid carcinoma largest measuring 3.7 cm with possible extracapsular extension in multiple nodes. Case was reviewed at the multidisciplinary tumor board with confirmation of low-grade mucoepidermoid tumor without extranodal extension and consensus recommendation for ipsilateral postoperative radiation therapy alone which he completed on 05/10/2021 (6000 cGy in 30 fractions). Mr. Mayer is doing well clinically approximately 6 months after the completion of his radiation treatments to the right head and neck with resolution of the majority the acute toxicities of treatment. He is both clinically and radiographically without evidence of disease persistence/recurrence with most recent CT imaging of the neck and chest from 10/12/2021 showing stable posttreatment changes. He will follow with Dr. Hill as scheduled for continued evaluation/surveillance and I will plan to see him back in 6 months with repeat imaging. The patient is aware to contact the clinic in the interim should any questions or concerns arise. Thank you for allowing us to participate in the care of this patient. Signed by: Yosef Taylor MD I spent a total of 20 minutes on the date of the service which included preparing to see the patient, [id number] patient care and counseling and educating the patient/family/caregiver. This document has been created with the use of voice recognition technology. It may contain inaccuracies, misspellings, inaccurate syntax or inappropriate word context that are a result of the inadequacies/shortcomings of said technology/software. documented in this encounter [facility] 10-12-2021 History of Present illness Narrative Radiology Service Progress Note DATE OF SERVICE: October 12, 2021 TIME: 8:54 AM PATIENT WEIGHT: 236LBS PATIENT IDENTITY VERIFICATION COMPLETED USING TWO (2) STANDARD IDENTIFIERS: Name and Date of confirmed by patient verbally. FALL SCREENING: Has the patient had 2 falls in the last year or 1 fall with injury or currently using an Ambulatory Assistive Device (Walker, Cane, Wheelchair, Crutches, etc.)? No PATIENT GENDER DATA: Male ALLERGIES: Reviewed and unchanged CONTRAST ALLERGY: No EXAM: CT -CONTRAST INDUCED NEPHROPATHY RISK FACTORS: Not applicable CREATININE: Creatinine Date Value Ref Range Status 07/16/2021 1.10 0.73 - 1.22 mg/dL Final 02/18/2021 1.09 0.73 - 1.22 mg/dL Final eGFR-All Other Races Date Value Ref Range Status 07/16/2021 >60 . Final Comment: eGFR (Estimated GFR) Units of measure: mL/min/1.73 meters squared eGFR is derived from the reexpressed MDRD Study equation using the following parameters: serum creatinine, age, gender and race. The creatinine assay has been calibrated to be traceable to IDMS. An eGFR <60 mL/min/1.73m2 for >3 months is consistent with chronic kidney disease. Refer to KDOQI guidelines for clinical interpretation. In patients with unstable renal function, e.g. those with acute kidney injury, the eGFR may not accurately reflect actual GFR. Note: On 10/09/2021, the eGFR calculation will be updated to the NKF-ASN Task Force recommended 2020 CKD-EPI creatinine equation which does not include a race variable. For more information or to access a 2020 CKD-EPI calculator, visit the National Kidney Foundation website at kidney.org/professionals/kdoqi/gf r_calculator. eGFR- Date Value Ref Range Status 07/16/2021 >60 Final P.O.C.T. RESULTS: N/A October 12, 2021 TREATMENT: N/A IV SITE: Ambulatory: A peripheral IV was started in the Right antecubital site with a Angio cath: 20 gauge. IV SITE APPEARANCE: Clean,Dry and Intact SIGNATURE: Kika Bonilla RN PATIENT NAME: Scarlet Mayer DATE: October 12, 2021 TIME: 8:54 AM Radiology Service Progress Note PATIENT NAME: Scarlet Mayer DATE OF SERVICE: October 12, 2021 TIME: 9:20 AM PATIENT IDENTITY VERIFICATION COMPLETED USING TWO (2) IDENTIFIERS: Name and Date of confirmed by patient verbally. FALL SCREENING: Has the patient had 2 falls in the last year or 1 fall with injury or currently using an Ambulatory Assistive Device (Walker, Cane, Wheelchair, Crutches, etc.)? No PATIENT GENDER DATA: Male PATIENT RELEVANT IMPLANT DATA REVIEWED: Not Applicable RADIOLOGY DEPARTMENT: CT; Exam(s) Completed: Chest and Neck PERIPHERAL IV DATA: Site assessment: Clean,Dry and Intact, Site disposition Discontinued SIGNED BY: RT Lianne(R) October 12, 2021 9:20 AM documented in this encounter [facility] 07-16-2021 History of Present illness Narrative Radiology Service Progress Note PATIENT NAME: Scarlet Mayer DATE OF SERVICE: July 16, 2021 TIME: 1:39 PM PATIENT IDENTITY VERIFICATION COMPLETED USING TWO (2) IDENTIFIERS: Name and Date of confirmed by patient verbally. FALL SCREENING: Has the patient had 2 falls in the last year or 1 fall with injury or currently using an Ambulatory Assistive Device (Walker, Cane, Wheelchair, Crutches, etc.)? No PATIENT GENDER DATA: Male PATIENT RELEVANT IMPLANT DATA REVIEWED: Not Applicable RADIOLOGY DEPARTMENT: CT; Exam(s) Completed: Chest and Neck PERIPHERAL IV DATA: Site assessment: Clean,Dry and Intact, Site disposition Discontinued SIGNED BY: RT Lianne(R) July 16, 2021 1:39 PM documented in this encounter [facility] 07-16-2021 Nurse Note Radiology Service Progress Note DATE OF SERVICE: July 16, 2021 TIME: 1:06 PM PATIENT WEIGHT: 231 LBS PATIENT IDENTITY VERIFICATION COMPLETED USING TWO (2) STANDARD IDENTIFIERS: Name and Date of confirmed by patient verbally. FALL SCREENING: Has the patient had 2 falls in the last year or 1 fall with injury or currently using an Ambulatory Assistive Device (Walker, Cane, Wheelchair, Crutches, etc.)? No PATIENT GENDER DATA: Male ALLERGIES: Reviewed and unchanged CONTRAST ALLERGY: No EXAM: CT -CONTRAST INDUCED NEPHROPATHY RISK FACTORS: Not applicable CREATININE: Creatinine Date Value Ref Range Status 02/18/2021 1.09 0.73 - 1.22 mg/dL Final eGFR-All Other Races Date Value Ref Range Status 02/18/2021 >60 . Final Comment: eGFR (Estimated GFR) Units of measure: mL/min/1.73 meters squared eGFR is derived from the reexpressed MDRD Study equation using the following parameters: serum creatinine, age, gender and race. The creatinine assay has been calibrated to be traceable to IDMS. An eGFR <60 mL/min/1.73m2 for >3 months is consistent with chronic kidney disease. Refer to KDOQI guidelines for clinical interpretation. In patients with unstable renal function, e.g. those with acute kidney injury, the eGFR may not accurately reflect actual GFR. eGFR- Date Value Ref Range Status 02/18/2021 >60 Final P.O.C.T. RESULTS: N/A July 16, 2021 TREATMENT: N/A IV SITE: Ambulatory: A peripheral IV was started in the Right forearm with a Angio cath: 20 gauge. IV SITE APPEARANCE: Clean,Dry and Intact SIGNATURE: Suzie French RN, BSN PATIENT NAME: Scarlet Mayer DATE: July 16, 2021 TIME: 1:06 PM [facility] 07-16-2021 Nurse Note Radiology Service Progress Note DATE OF SERVICE: July 16, 2021 TIME: 1:06 PM PATIENT WEIGHT: 231 LBS PATIENT IDENTITY VERIFICATION COMPLETED USING TWO (2) STANDARD IDENTIFIERS: Name and Date of confirmed by patient verbally. FALL SCREENING: Has the patient had 2 falls in the last year or 1 fall with injury or currently using an Ambulatory Assistive Device (Walker, Cane, Wheelchair, Crutches, etc.)? No PATIENT GENDER DATA: Male ALLERGIES: Reviewed and unchanged CONTRAST ALLERGY: No EXAM: CT -CONTRAST INDUCED NEPHROPATHY RISK FACTORS: Not applicable CREATININE: Creatinine Date Value Ref Range Status 02/18/2021 1.09 0.73 - 1.22 mg/dL Final eGFR-All Other Races Date Value Ref Range Status 02/18/2021 >60 . Final Comment: eGFR (Estimated GFR) Units of measure: mL/min/1.73 meters squared eGFR is derived from the reexpressed MDRD Study equation using the following parameters: serum creatinine, age, gender and race. The creatinine assay has been calibrated to be traceable to IDMS. An eGFR <60 mL/min/1.73m2 for >3 months is consistent with chronic kidney disease. Refer to KDOQI guidelines for clinical interpretation. In patients with unstable renal function, e.g. those with acute kidney injury, the eGFR may not accurately reflect actual GFR. eGFR- Date Value Ref Range Status 02/18/2021 >60 Final P.O.C.T. RESULTS: N/A July 16, 2021 TREATMENT: N/A IV SITE: Ambulatory: A peripheral IV was started in the Right forearm with a Angio cath: 20 gauge. IV SITE APPEARANCE: Clean,Dry and Intact SIGNATURE: Suzie French RN, BSN PATIENT NAME: Scarlet Mayer DATE: July 16, 2021 TIME: 1:06 PM documented in this encounter [facility] 02-12-2021 Note SCARLET MAYER was presented at Head and Neck Tumor Board Conference Conference date: 12-Feb-2021 Presenting Provider(s): Dr. 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 The treating [facility] physician is not always present, and many of the physicians formulating the recommendation have not personally seen or examined the patient under discussion. It is understood that the treating [facility] physician considers the expertise of the Tumor Board Recommendation in formulating his/her plan for the patient. However, in many situations, based on individualized patient considerations, a different plan is determined by the treating physician to be the optimal medical management. Electronic Signatures: Orlando Farooq (Patel WAGONER) (Signed 12-Feb-2021 10:47) Authored: Impression, Recommendations, Note, Disclaimer Last Updated: 12-Feb-2021 10:47 by Orlando Farooq (Patel WAGONER) [facility] Discharge summary Note Date/Time February 24, 2024 8:55am [place] [address] Discharge Summary Signed Patient: Scarlet Mayer MR#: [id number] : 1975 Acct:[id number] Age/Sex: 48 / M Adm Date: 4 Loc: 4N Room: 8Y8117-[address]: Khadar Hill DO Copies to: DO Tristian Orellana MD~ Providers Date of Discharge: 02/24/24 Discharging Provider: Khadar Hill Primary Care Provider: Tristian Pacheco Discharge Diagnosis (1) Metastatic cancer to cervical lymph nodes: Final Diagnosis Final Discharge Diagnosis: Cancer metastatic to cervical lymph nodes/status post left neck dissection Summary Hospital Course Hospital course: Patient made yesterday underwent left lingual tonsillectomy and left modified radical neck dissection metastatic mucoepidermoid carcinoma. Patient dischargedin satisfactory condition Status at Discharge Cognitive/behavioral status at discharge: Patient 48-year-old male well-known to myself. I treated him about 2-1/2 years ago for what turned out to be metastatic low-grade Mucobid dermoid carcinoma to the right neck with unknown primary. Patient was treated with a neck dissectionfollowed by a radiation therapy. Has been followed up at least every 3 months since then. He underwent an MRI scan of the neck for an unrelated issue a few weeks ago revealing large lymph nodes in the left neck. Patient has a history of talking short neck and these are not very palpable. The CT scan was performed revealing what appeared to be metastatic adenopathy in the left neck, FNA was consistent with probable mucoepidermoid cancer. Again. Primary is hidden. PET scan is unrevealing. There was some mild uptake in the left lingual tonsil. Patient was counseled therefore brought to the operating room yesterday at which point panendoscopy, a left lingual tonsillectomy and a left modified radical neck dissection was performed uneventfully. Patient has been admitted overnight. He is doing well. Has obviously some discomfort from the lingual tonsillectomy. Neck wound is intact, flaps are down, SANGEETA pulling serosanguineous material. Functional status at discharge: independent ambulation Time Spent with Patient Time spent providing/coordinating discharge services (# min): 25 Surgeries and Procedures Operation Date: 02/23/24 08:20 Actual Procedures p OR Left Modified Radical Neck Dissection, Nerve Monitoring(Not Applicable) - Khadar Hill DO s OR Panendoscopy, Left Lingual Tonsillectomy(Not Applicable) - Khadar Hill DO Complications Complications: None Discharge Plan Discharge Plan Comment: Okay to shower, protect drain. No lifting or straining Diet: Regular Comment: No sharp or granular food, plenty of liquids Additional Instructions: 1. Sleep on 2 pillows 2. Small amount of Vaseline to nick twice daily 3. Diet as tolerated, avoid sharp, acidic and granular foods 4. Plenty of liquids 5. Tylenol for discomfort or prescribed narcotic 6. See Dr. Hill at 2 PM on Monday for drain removal Instructions: Surgical treatment for head and neck cancer Prescriptions: New oxycodone-acetaminophen 5-325 mg Tablet 2 tab PO 4XD PRN (Reason: Moderate Pain) 7 Days Qty: 2 0RF Continued multivitamin [Daily Multi-Vitamin] Tablet 1 tab PO DAILY cholecalciferol (vitamin D3) [Vitamin D3] 25 mcg (1,000 unit) capsule 25 mcg PO DAILY ascorbic acid (vitamin C) [Vitamin C] 500 mg tablet 500 mg PO DAILY Follow Up: Khadar Hill DO [Active Staff - D.O.] - Exam Physical Exam Vital Signs: Temp Pulse Resp BP Pulse Ox O2 Del Method O2 Flow Rate 97.5 F L 69 12 145/83 H 98 Room Air 10 02/23/24 12:00 02/24/24 03:37 02/23/24 19:59 02/24/24 03:37 02/24/24 03:37 02/24/24 03:37 02/23/24 10:53 Narrative: Awake oriented. Neck dressing removed. Flaps are down, SANGEETA pulling serosanguineous material. Tongue motion normal Diagnostic Studies Completed and Pending Studies Labs on day of discharge: 02/24/24 05:09: Corrected WBC 13.2 H, Uncorrected WBC Count 13.2 H, RBC 4.92, Hgb 14.6, Hct 42.4, MCV 86.0, MCH 29.7, MCHC 34.5, RDW 14.5, Plt Count 241, MPV 7.5, Neut % (Auto) 82.5, Lymph % (Auto) 8.9, Sac % (Auto) 8.1, Eos % (Auto) 0.1, Baso % (Auto) 0.4, Nucleat RBC Rel Count 0.0, Neut # (Auto) 10.9 H, Lymph #(Auto) 1.2, Sac # (Auto) 1.1 H, Eos # (Auto) 0.0, Baso # (Auto) 0.1, PHA Creatinine Clear 101.70, Sodium 138, Potassium 4.2, Chloride 106, Carbon Sqjxrwo11.0, Anion Gap 10.2, BUN 18, Creatinine 1.15, Est GFR (CKD-EPI) > 60.0, Bjectdr189 H, Calcium 8.5 L Documented By: Khadar Hill DO 02/24/24 085 1 Signed By: <Electronically signed by DO Khadar Hill> 02/24/24 0901 [facility] Work Phone: Evaluation noteNo assessment information available [facility]* Diagnosis Malignant neoplasm of head, face and neck (HCC) Malignant neoplasm of head, face, and neck 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 neoplasm of parotid gland [facility] 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, unspecified 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 [facility]* Diagnosis Lymphedema- Primary Other lymphedema 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 neoplasm of salivary gland, unspecified [facility] Diagnosis 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, unspecified [facility]* Diagnosis 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 [facility] Diagnosis Lymphedema- Primary Other lymphedema 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 neoplasm of salivary gland, unspecified [facility] Diagnosis 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, unspecified [facility]* Diagnosis Lymphedema- Primary Other lymphedema 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 neoplasm of salivary gland, unspecified [facility]* Diagnosis Lymphedema- Primary Other lymphedema 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 neoplasm of salivary gland, unspecified [facility]* Diagnosis 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, unspecified [facility]* Diagnosis 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 Malignant neoplasm of head, face and neck (HCC) Malignant neoplasm of head, face, and neck [facility]* Diagnosis Head and neck cancer (HCC) Malignant neoplasm of head, face, and neck Malignant neoplasm of head, face and neck (HCC) Malignant neoplasm of head, face, and neck documented in this encounter [facility] note* Diagnosis 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, unspecified documented in this encounter [facility] note* Diagnosis Malignant neoplasm of head, face and neck (HCC) Malignant neoplasm of head, face, and neck [facility]* Diagnosis 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, unspecified [facility]* Diagnosis 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/HCC)- Primary Salivary gland cancer (CMS/HCC) Malignant neoplasm of salivary gland, unspecified documented in this encounter [facility] note* Diagnosis 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, unspecified [facility]* Diagnosis Lymphedema- Primary Other lymphedema 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 neoplasm of salivary gland, unspecified [facility]* Diagnosis Salivary gland cancer (CMS/HCC)- Primary Malignant neoplasm of salivary gland, unspecified 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/HCC) documented in this encounter [facility]* Diagnosis Lymphedema- Primary Other lymphedema [facility]* Diagnosis 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, unspecified 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 [facility] Diagnosis Lymphedema- Primary Other lymphedema 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 neoplasm of salivary gland, unspecified [facility] Diagnosis Lymphedema- Primary Other lymphedema 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 neoplasm of salivary gland, unspecified [facility] Diagnosis 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 neoplasm of salivary gland, unspecified 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 [facility] Diagnosis 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/HCC)- Primary [facility] 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/HCC)- Primary Salivary gland cancer (CMS/HCC) Malignant neoplasm of salivary gland, unspecified [facility] Diagnosis 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, unspecified [facility]* Diagnosis Encounter for follow-up surveillance of salivary gland cancer- Primary 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/HCC) History of neck dissection [facility] 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/HCC)- Primary 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, face, or neck with unknown primary site (CMS/HCC) documented in this encounter [facility] HealthcareEvaluation note* Diagnosis Onset Date Resolution Status Admit Date Rash acute November 29 8:56am [facility] Work Phone: Evaluation note* Diagnosis 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, unspecified [facility]* Diagnosis 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/HCC)- Primary 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, face, or neck with unknown primary site (CMS/HCC) History of neck dissection [facility]* Diagnosis Salivary gland cancer (HCC)- Primary Malignant neoplasm of salivary gland, unspecified History of neck dissection [facility] N[facility]ative - Reported* Type Description Date Medical History Problem Title : comp liance with medical treatment, Problem Description : compliance with medical treatment, Problem Comment : Done, Problem Status : Active,, Medical History Problem Title : Depr ession Screening, Problem Description : Depression Screening, Problem Comment : Negative, Problem Status : Active,, Medical History Problem Title : Knee right swelling, Problem Description : Knee right swelling, Problem Comment : diffuse, Problem Status : Active,, Medical History Problem Title : no k nown problems, Problem Description : no known problems, Problem Comment : F, Problem Status : Active,, Medical History Problem Title : past medical history E&M, Problem Description : past medical history E&M, Problem Comment : spontaneous pneumothorax with chest tube, Problem Status : Active,, Medical History Problem Title : past medical history reviewed, Problem Description : past medical history reviewed, Problem Comment : reviewed - no changes required, Problem Status : Active,, Medical History Problem Title : PHQ2 Questionairre Score, Problem Description : PHQ2 Questionairre Score, Problem Comment : 0, Problem Status : Active,, Medical History Problem Title : PHQ9 Question One score, Problem Description : PHQ9 Question One score, Problem Comment : 0, Problem Status : Active,, Medical History Problem Title : PHQ9 Question Two score, Problem Description : PHQ9 Question Two score, Problem Comment : 0, Problem Status : Active,, Medical History Problem Title : righ t knee stability CCC, Problem Description : right knee stability CCC, Problem Comment : unstable anterior cruciate, Problem Status : Active,, Medical History Problem Title : very low density lipoproteins, Problem Description : very low density lipoproteins, Problem Comment : 51.6, Problem Status : Active,, Surgical History Problem Title : past surgical history reviewed, Problem Description : past surgical history reviewed, Problem Comment : reviewed - no changes required, Problem Status : Active, Surgical History Problem Title : surg ical procedures, hx of, Problem Description : surgical procedures, hx of, Problem Comment : Julio C manzano 2009, Problem Status : Active, Surgical History Problem Title : surg ical radical dissection of neck - 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 Hill, Problem Status : [facility] Discharge instructions Additional Instructions 1. Sleep on 2 pillows 2. Small amount of Vaseline to nick twice daily 3. Diet as tolerated, avoid sharp, acidic and granular foods 4. Plenty of liquids 5. Tylenol for discomfort or prescribed narcotic 6. See Dr. Hill at 2 PM on Monday [facility] Work Phone: Progress note Author Khadar Hill 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 Patient awake oriented. Some discomfort from the lingual tonsillectomy otherwise doing well. Overnight experience completely unremarkable. White count is a little elevated but I suspect that isdemargination, there is absolutely no evidence of infection and has been on antibiotics since surgery. Exam Physical Exam Vital Signs: Temp Pulse Resp BP Pulse Ox O2 Del Method O2 Flow Rate 97.5 F L 69 12 145/83 H 98 Room Air 10 02/23/24 12:00 02/24/24 03:37 02/23/24 19:59 02/24/24 03:37 02/24/24 03:37 02/24/24 03:37 02/23/24 10:53 Narrative: Awake oriented. Neck dressing removed. Flaps are down, SANGEETA pulling serosanguineous material. Tongue motion normal Objective Labs 02/24/24 05:09 02/24/24 05:09 Labs: 02/24/24 05:09: Corrected WBC 13.2 H, Uncorrected WBC Count 13.2 H, RBC 4.92, Hgb 14.6, Hct 42.4, MCV 86.0, MCH 29.7, MCHC 34.5, RDW 14.5, Plt Count 241, MPV 7.5, Neut % (Auto) 82.5, Lymph % (Auto) 8.9, Sac % (Auto) 8.1, Eos % (Auto) 0.1, Baso % (Auto) 0.4, Nucleat RBC Rel Count 0.0, Neut # (Auto) 10.9 H, Lymph #(Auto) 1.2, Sac # (Auto) 1.1 H, Eos # (Auto) 0.0, Baso # (Auto) 0.1, PHA Creatinine Clear 101.70, Sodium 138, Potassium 4.2, Chloride 106, Carbon Zrorxfh62.0, Anion Gap 10.2, BUN 18, Creatinine 1.15, Est GFR (CKD-EPI) > 60.0, [id number] H, Calcium 8.5 L A&P - ENT Assessment and plan (1) Metastatic cancer to cervical lymph nodes: Plan: Patient wants to go home and there is no reason for him to remain in the hospital. Instructions were given as far as drain care and activity. Diet as well. I will see him on Monday to remove the drain. 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 recurrent salivary gland cancer Reason for Visit Metastatic cancer to cervical lymph nodes Chief Complaint Admit Date rash on face November 29, 2024 8:5 6am Reason for Visit Admit Date Rash November 29, 2024 8:5 6am Advance Directives No Advanced Directives Records Found Advance Directive Response Recorded Date/ Time Advance Directives No January 06 2:01pm Summary Purpose Family History No Family History Records Found Reason for Referral Specialty Diagnoses / Procedures Referred By Contac t Referred To Contact CT IMAGING Diagnoses Malignant neoplasm of head, face and neck (HCC) Procedures CT CHEST W IVCON DIAGNOSTIC COMPUTED TOMOGRAPHY THORAX W/CONTRAST Yosef Taylor MD [address] [facility] [place] [address] Ct Imaging Referral ID Status Reason Start Date Expiration Date Visits Requested Visits Authorized [id number] Pending Review Auto-Generat ed Referral 10/22/2021 11/21/2022 1 1 Specialty Diagnoses / Procedures Referred By Contac t Referred To Contact CT IMAGING Diagnoses Malignant neoplasm of parotid gland (HCC) Procedures CT NECK SOFT TISSUE W IVCON CT SOFT TISSUE NECK W/CONTRAST MATERIAL Yosef Taylor MD [address] [facility] [place] [address] Ct Imaging Referral ID Status Reason Start Date Expiration Date Visits Requested Visits Authorized [id number] Pending Review Auto-Generat ed Referral 10/22/2021 11/21/2022 1 1 Specialty Diagnoses / Procedures Referred By Contac t Referred To Contact CT IMAGING Diagnoses Malignant neoplasm of parotid gland (HCC) Procedures CT CHEST W IVCON DIAGNOSTIC COMPUTED TOMOGRAPHY THORAX W/CONTRAST Yosef Taylor MD [address] [facility] [place] [address] Ct Imaging Referral ID Status Reason Start Date Expiration Date Visits Requested Visits Authorized [id number] Pending Review Auto-Generat ed Referral 11/15/2022 06/15/2023 1 1 Referral ID Status Reason Start Date Expiration Date Visits Requested Visits Authorized [id number] Pending Review Auto-Generat ed Referral 11/15/2022 06/15/2023 1 1 Specialty Diagnoses / Procedures Referred By Contac t Referred To Contact [facility] Diagnoses Malignant neoplasm of parotid gland (HCC) Procedures CONSULT TO HEMATOLOGY/ONCOLOGY OFFICE/OUTPATIENT [facility] 60 MINUTES Yosef Taylor MD [address] [place] [address] Referral ID Status Reason Start Date Expiration Date Visits Requested Visits Authorized [id number] Authorized PCP Requested Referral 03/05/2024 03/05/2025 1 1 Specialty Diagnoses / Procedures Referred By Contac t Referred To Contact Radiation Oncology Diagnoses Malignant neoplasm of parotid gland (HCC) Procedures RAD/ONC CONSULT OFFICE/[facility]PATIENT [facility] 60 MINUTES Yosef Taylor MD [address] [place] [address] [place] [address] Matt Monreal MD [address] [place] [address] Referral ID Status Reason Start Date Expiration Date Visits Requested Visits Authorized [id number] Authorized PCP Requested Referral 03/05/2024 03/05/2025 1 1 Specialty Diagnoses / Procedures Referred By Contac t Referred To Contact OCCUPATIONAL THERAPY Diagnoses Malignant neoplasm of salivary gland (HCC) Procedures CONSULT TO LYMPHEDEMA THERAPY OFFICE/OUTPATIENT [facility] 60 MINUTES Matt Monreal MD [address] [place] [address] [address] [address] [place] [address] Referral ID Status Reason Start Date Expiration Date Visits Requested Visits Authorized [id number] Authorized Auto-Generat ed Referral 03/18/2024 03/18/2025 1 1 Specialty Diagnoses / Procedures Referred By Contac t Referred To Contact Diagnoses Malignant neoplasm of salivary gland (HCC) Procedures CT SIM PLANNING RADIATION ONCOLOGY THER RAD SIMULAJ-AIDED FIELD SETTING COMPLEX Yosef Taylor MD [address] [place] [address] [place] [address] Referral ID Status Reason Start Date Expiration Date Visits Requested Visits Authorized [id number] New Request PCP Requested Referral 03/20/2024 06/18/2024 1 1 Specialty Diagnoses / Procedures Referred By Contac t Referred To Contact CT IMAGING Diagnoses Malignant neoplasm of head, face and neck (HCC) Procedures CT CHEST W IVCON DIAGNOSTIC COMPUTED TOMOGRAPHY THORAX W/CONTRAST Yosef Taylor MD [address] [place] [address] [place] [address] [address] [id number] Referral ID Status Reason Start Date Expiration Date V isits Requested Visits Authorized [id number] Closed Auto-Generate d Referral 04/27/2022 05/27/2022 2 1 Specialty Diagnoses / Procedures Referred By Contac t Referred To Contact CT IMAGING Diagnoses Malignant neoplasm of parotid gland (HCC) Procedures CT NECK SOFT TISSUE W IVCON CT SOFT TISSUE NECK W/CONTRAST MATERIAL Yosef Taylor MD [address] [place] [address] [place] [address] [place] [address] Referral ID Status Reason Start Date Expiration Date V isits Requested Visits Authorized [id number] Closed Auto-Generate d Referral 04/27/2022 05/27/2022 1 1 Specialty Diagnoses / Procedures Referred By Contac t Referred To Contact CT IMAGING Diagnoses Head and neck cancer (HCC) Malignant neoplasm of head, face and neck (HCC) Procedures CT NECK SOFT TISSUE W IVCON CT SOFT TISSUE NECK W/CONTRAST MATERIAL Yosef Taylor MD [address] [place] [address] [place] [address] [place] [address] Referral ID Status Reason Start Date Expiration Date V isits Requested Visits Authorized [id number] Closed Auto-Generate d Referral 10/12/2021 08/13/2022 1 1 Specialty Diagnoses / Procedures Referred By Contac t Referred To Contact CT IMAGING Diagnoses Head and neck cancer (HCC) Malignant neoplasm of head, face and neck (HCC) Procedures CT CHEST W IVCON DIAGNOSTIC COMPUTED TOMOGRAPHY THORAX W/CONTRAST Yosef Taylor MD [address] [place] [address] [place] [address] [place] [address] Referral ID Status Reason Start Date Expiration Date V isits Requested Visits Authorized [id number] Closed Auto-Generate d Referral 10/12/2021 08/13/2022 1 1 Specialty Diagnoses / Procedures Referred By Contac t Referred To Contact CT IMAGING Diagnoses Malignant neoplasm of head, face and neck (HCC) Procedures CT NECK SOFT TISSUE W IVCON CONTRAST CAT OF NECK TISSUE Yosef Taylor MD [address] [place] [address] [place] [address] [place] [address] Referral ID Status Reason Start Date Expiration Date V isits Requested Visits Authorized [id number] Closed Auto-Generate d Referral 07/14/2021 08/14/2021 1 1 Specialty Diagnoses / Procedures Referred By Contac t Referred To Contact CT IMAGING Diagnoses Malignant neoplasm of head, face and neck (HCC) Procedures CT CHEST W IVCON CAT SCAN OF CHEST CONTRAST Yosef Taylor MD [address] [place] [address] [place] [address] [place] [address] Referral ID Status Reason Start Date Expiration Date V isits Requested Visits Authorized [id number] Closed Auto-Generate d Referral 07/16/2021 08/14/2021 1 1 Specialty Diagnoses / Procedures Referred By Contac t Referred To Contact CT IMAGING 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) Procedures CT NECK SOFT TISSUE W IVCON CT SOFT TISSUE NECK W/CONTRAST MATERIAL Yosef Taylor MD [address] [place] [address] [place] [address] [place] [address] Referral ID Status Reason Start Date Expiration Date V isits Requested Visits Authorized [id number] Open Auto-Generate d Referral 08/02/2024 07/21/2025 1 1 Specialty Diagnoses / Procedures Referred By Contac t Referred To Contact CT IMAGING 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) Procedures CT CHEST W IVCON DIAGNOSTIC COMPUTED TOMOGRAPHY THORAX W/CONTRAST Yosef Taylor MD [address] [place] [address] [place] [address] [place] [address] Referral ID Status Reason Start Date Expiration Date V isits Requested Visits Authorized [id number] Open Auto-Generate d Referral 08/02/2024 07/21/2025 1 1 Referral ID Status Reason Start Date Expiration Date Visits Requested Visits Authorized [id number] Pending Review Auto-Genera iman Referral Patient Cleared - Admin/Chair man/Directo r advise to proceed or did not respond 07/18/2024 07/21/2025 1 1 Referral ID Status Reason Start Date Expiration Date Visits Requested Visits Authorized [id number] Pending Review Auto-Genera iman Referral Patient Cleared - Admin/Chair man/Directo r advise to proceed or did not respond 07/18/2024 07/21/2025 1 1 Specialty Diagnoses / Procedures Referred By Contac t Referred To Contact CT IMAGING Diagnoses Malignant neoplasm of salivary gland (HCC) Procedures CT CHEST W IVCON DIAGNOSTIC COMPUTED TOMOGRAPHY THORAX W/CONTRAST Yosef Taylor MD [address] [place] [address] [place] [address] [place] [address] Referral ID Status Reason Start Date Expiration Date Visits Requested Visits Authorized [id number] Pending Review Auto-Generat ed Referral 4 09/04/2025 1 1 Specialty Diagnoses / Procedures Referred By Contac t Referred To Contact CT IMAGING Diagnoses Malignant neoplasm of salivary gland (HCC) Procedures CT NECK SOFT TISSUE W IVCON CT SOFT TISSUE NECK W/CONTRAST MATERIAL Yosef Taylor MD [address] [place] [address] [place] [address] [place] [address] Referral ID Status Reason Start Date Expiration Date Visits Requested Visits Authorized [id number] Pending Review Auto-Generat ed Referral 4 09/04/2025 1 1 Additional Source Comments Goals (unrecognized section and content) Goals may be documented in a n alternate sectionGoals may be documented in an alternate sectionGoals may be documented in an alternate sectionNo InformationGoals may be documented in an alternate sectionGoals may be documented in an alternate sectionGoals may be documented in an alternate section (unrecognized sect ion and content) No Status Records FoundNo Status Records FoundNo Status Records FoundNo Status Records FoundNo Status Records FoundNo Status Records Found INFORMATION SOURCE (unrecogn ized section and content) DATE CREATED AUTHOR 04/15/2021 [facility] DATE CREATED AUTHOR AUTHOR'S ORGANIZ ATION 07/21/2021 [facility] DATE CREATED AUTHOR AUTHOR'S ORGANIZ ATION 10/29/2021 [facility] DATE CREATED AUTHOR AUTHOR'S ORGANIZ ATION 04/06/2024 [facility] DATE CREATED AUTHOR AUTHOR'S ORGANIZ ATION 12/31/2024 [facility] DATE CREATED AUTHOR AUTHOR'S ORGANIZ ATION 03/02/2025 [facility] EPIC Source Comments (unrecognize d section and content) In the event this informatio n is protected by the Federal Confidentiality of Alcohol and Drug Abuse Patient Records regulations: The Federal rules restrict any use of the information to criminally investigate or prosecute any alcohol or drug abuse patient.[facility] HospitalIn the event this information is protected by the Federal Confidentiality of Alcohol and Drug Abuse Patient Records regulations: The Federal rules restrict any use of the information to criminally investigate or prosecute any alcohol or drug abuse patient.[facility] HospitalIn the event this information is protected by the Federal Confidentiality of Alcohol and Drug Abuse Patient Records regulations: The Federal rules restrict any use of the information to criminally investigate or prosecute any alcohol or drug abuse patient.[facility] HospitalIn the event this information is protected by the Federal Confidentiality of Alcohol and Drug Abuse Patient Records regulations: The Federal rules restrict any use of the information to criminally investigate or prosecute any alcohol or drug abuse patient.[facility] HospitalIn the event this information is protected by the Federal Confidentiality of Alcohol and Drug Abuse Patient Records regulations: The Federal rules restrict any use of the information to criminally investigate or prosecute any alcohol or drug abuse patient.[facility] HospitalIn the event this information is protected by the Federal Confidentiality of Alcohol and Drug Abuse Patient Records regulations: The Federal rules restrict any use of the information to criminally investigate or prosecute any alcohol or drug abuse patient.[facility] HospitalIn the event this information is protected by the Federal Confidentiality of Alcohol and Drug Abuse Patient Records regulations: The Federal rules restrict any use of the information to criminally investigate or prosecute any alcohol or drug abuse patient.[facility] HospitalIn the event this information is protected by the Federal Confidentiality of Alcohol and Drug Abuse Patient Records regulations: The Federal rules restrict any use of the information to criminally investigate or prosecute any alcohol or drug abuse patient.[facility] HospitalIn the event this information is protected by the Federal Confidentiality of Alcohol and Drug Abuse Patient Records regulations: The Federal rules restrict any use of the information to criminally investigate or prosecute any alcohol or drug abuse patient.[facility] HospitalIn the event this information is protected by the Federal Confidentiality of Alcohol and Drug Abuse Patient Records regulations: The Federal rules restrict any use of the information to criminally investigate or prosecute any alcohol or drug abuse patient.[facility] HospitalIn the event this information is protected by the Federal Confidentiality of Alcohol and Drug Abuse Patient Records regulations: The Federal rules restrict any use of the information to criminally investigate or prosecute any alcohol or drug abuse patient.[facility] HospitalIn the event this information is protected by the Federal Confidentiality of Alcohol and Drug Abuse Patient Records regulations: The Federal rules restrict any use of the information to criminally investigate or prosecute any alcohol or drug abuse patient.[facility] HospitalIn the event this information is protected by the Federal Confidentiality of Alcohol and Drug Abuse Patient Records regulations: The Federal rules restrict any use of the information to criminally investigate or prosecute any alcohol or drug abuse patient.[facility] HospitalIn the event this information is protected by the Federal Confidentiality of Alcohol and Drug Abuse Patient Records regulations: The Federal rules restrict any use of the information to criminally investigate or prosecute any alcohol or drug abuse patient.[facility] HospitalIn the event this information is protected by the Federal Confidentiality of Alcohol and Drug Abuse Patient Records regulations: The Federal rules restrict any use of the information to criminally investigate or prosecute any alcohol or drug abuse patient.[facility] HospitalIn the event this information is protected by the Federal Confidentiality of Alcohol and Drug Abuse Patient Records regulations: The Federal rules restrict any use of the information to criminally investigate or prosecute any alcohol or drug abuse patient.[facility] HospitalIn the event this information is protected by the Federal Confidentiality of Alcohol and Drug Abuse Patient Records regulations: The Federal rules restrict any use of the information to criminally investigate or prosecute any alcohol or drug abuse patient.[facility] HospitalIn the event this information is protected by the Federal Confidentiality of Alcohol and Drug Abuse Patient Records regulations: The Federal rules restrict any use of the information to criminally investigate or prosecute any alcohol or drug abuse patient.[facility] HospitalIn the event this information is protected by the Federal Confidentiality of Alcohol and Drug Abuse Patient Records regulations: The Federal rules restrict any use of the information to criminally investigate or prosecute any alcohol or drug abuse patient.[facility] HospitalIn the event this information is protected by the Federal Confidentiality of Alcohol and Drug Abuse Patient Records regulations: The Federal rules restrict any use of the information to criminally investigate or prosecute any alcohol or drug abuse patient.[facility] HospitalIn the event this information is protected by the Federal Confidentiality of Alcohol and Drug Abuse Patient Records regulations: The Federal rules restrict any use of the information to criminally investigate or prosecute any alcohol or drug abuse patient.[facility] HospitalIn the event this information is protected by the Federal Confidentiality of Alcohol and Drug Abuse Patient Records regulations: The Federal rules restrict any use of the information to criminally investigate or prosecute any alcohol or drug abuse patient.[facility] HospitalIn the event this information is protected by the Federal Confidentiality of Alcohol and Drug Abuse Patient Records regulations: The Federal rules restrict any use of the information to criminally investigate or prosecute any alcohol or drug abuse patient.[facility] HospitalIn the event this information is protected by the Federal Confidentiality of Alcohol and Drug Abuse Patient Records regulations: The Federal rules restrict any use of the information to criminally investigate or prosecute any alcohol or drug abuse patient.[facility] HospitalIn the event this information is protected by the Federal Confidentiality of Alcohol and Drug Abuse Patient Records regulations: The Federal rules restrict any use of the information to criminally investigate or prosecute any alcohol or drug abuse patient.[facility] HospitalIn the event this information is protected by the Federal Confidentiality of Alcohol and Drug Abuse Patient Records regulations: The Federal rules restrict any use of the information to criminally investigate or prosecute any alcohol or drug abuse patient.[facility] HospitalIn the event this information is protected by the Federal Confidentiality of Alcohol and Drug Abuse Patient Records regulations: The Federal rules restrict any use of the information to criminally investigate or prosecute any alcohol or drug abuse patient.[facility] HospitalIn the event this information is protected by the Federal Confidentiality of Alcohol and Drug Abuse Patient Records regulations: The Federal rules restrict any use of the information to criminally investigate or prosecute any alcohol or drug abuse patient.[facility] HospitalIn the event this information is protected by the Federal Confidentiality of Alcohol and Drug Abuse Patient Records regulations: The Federal rules restrict any use of the information to criminally investigate or prosecute any alcohol or drug abuse patient.[facility] HospitalIn the event this information is protected by the Federal Confidentiality of Alcohol and Drug Abuse Patient Records regulations: The Federal rules restrict any use of the information to criminally investigate or prosecute any alcohol or drug abuse patient.[facility] HospitalIn the event this information is protected by the Federal Confidentiality of Alcohol and Drug Abuse Patient Records regulations: The Federal rules restrict any use of the information to criminally investigate or prosecute any alcohol or drug abuse patient.[facility] HospitalIn the event this information is protected by the Federal Confidentiality of Alcohol and Drug Abuse Patient Records regulations: The Federal rules restrict any use of the information to criminally investigate or prosecute any alcohol or drug abuse patient.[facility] HospitalIn the event this information is protected by the Federal Confidentiality of Alcohol and Drug Abuse Patient Records regulations: The Federal rules restrict any use of the information to criminally investigate or prosecute any alcohol or drug abuse patient.[facility] HospitalIn the event this information is protected by the Federal Confidentiality of Alcohol and Drug Abuse Patient Records regulations: The Federal rules restrict any use of the information to criminally investigate or prosecute any alcohol or drug abuse patient.[facility] HospitalIn the event this information is protected by the Federal Confidentiality of Alcohol and Drug Abuse Patient Records regulations: The Federal rules restrict any use of the information to criminally investigate or prosecute any alcohol or drug abuse patient.[facility] HospitalIn the event this information is protected by the Federal Confidentiality of Alcohol and Drug Abuse Patient Records regulations: The Federal rules restrict any use of the information to criminally investigate or prosecute any alcohol or drug abuse patient.[facility] HospitalIn the event this information is protected by the Federal Confidentiality of Alcohol and Drug Abuse Patient Records regulations: The Federal rules restrict any use of the information to criminally investigate or prosecute any alcohol or drug abuse patient.[facility] HospitalIn the event this information is protected by the Federal Confidentiality of Alcohol and Drug Abuse Patient Records regulations: The Federal rules restrict any use of the information to criminally investigate or prosecute any alcohol or drug abuse patient.[facility] HospitalIn the event this information is protected by the Federal Confidentiality of Alcohol and Drug Abuse Patient Records regulations: The Federal rules restrict any use of the information to criminally investigate or prosecute any alcohol or drug abuse patient.[facility] HospitalIn the event this information is protected by the Federal Confidentiality of Alcohol and Drug Abuse Patient Records regulations: The Federal rules restrict any use of the information to criminally investigate or prosecute any alcohol or drug abuse patient.[facility] Reason for Visit (unrecogniz ed section and content) Reason Comments OT Progress Note Specialty Diagnoses / Procedures Referred By Contac t Referred To Contact Occupational Therapy / OCCUPATIONAL THERAPY Diagnoses Lymphedema Procedures EST RS OT LYMPHEDEMA Matt Monreal MD [address] [place] [address] Komal Mendoza OTR/Toby [address] [place] [address] Referral ID Status Reason Start Date Expiration Date V isits Requested Visits Authorized [id number] New Request 08/21/2024 11/19/2024 1 1 Reason Comments Occupational Therapy Specialty Diagnoses / Procedures Referred By Contac t Referred To Contact [facility] Diagnoses Lymphedema Procedures THERAPEUTIC EXERCISES RE, EA 15 MIN. Matt Monreal MD [address] [place] [address] [facility] [place] [address] Referral ID Status Reason Start Date Expiration Date V isits Requested Visits Authorized [id number] Authorized 08/14/2023 08/13/2024 40 40 Reason Comments Malignant neoplasm of salivary gland ( T reatment visit Specialty Diagnoses / Procedures Referred By Contac t Referred To Contact Radiation Oncology / RADIATION ONCOLOGY Diagnoses Follow-up exam Location: [facility] Activity: WO-OTV Procedures OFFICE/OUTPATIENT ESTABLISHED HIGH MDM 40 MIN ON TREATMENT VISIT Yosef Taylor MD [address] [place] [address] Yosef Taylor MD [address] [place] [address] [place] [address] Referral ID Status Reason Start Date Expiration Date V isits Requested Visits Authorized [id number] Authorized 04/24/2024 08/13/2024 99 99 Reason Comments Malignant neoplasm of salivary gland Carlos atment visit Reason Comments Radiology CT Specialty Diagnoses / Procedures Referred By Contac t Referred To Contact CT IMAGING Diagnoses Malignant neoplasm of head, face and neck (HCC) Procedures CT NECK SOFT TISSUE W IVCON CONTRAST CAT OF NECK TISSUE Yosef Taylor MD [address] [place] [address] [place] [address] [address] [id number] Referral ID Status Reason Start Date Expiration Date V isits Requested Visits Authorized [id number] Closed Auto-Generate d Referral 07/14/2021 08/14/2021 1 1 Specialty Diagnoses / Procedures Referred By Contac t Referred To Contact Radiology / RADIO PET CT SAND Diagnoses Malignant neoplasm of head, face and neck CT Chest & Neck (Waiting for Orders) Procedures CT SOFT TISSUE NECK W/CONTRAST MATERIAL DIAGNOSTIC COMPUTED TOMOGRAPHY THORAX W/CONTRAST CT CHEST Yosef Barnes MD [address] [place] [address] [place] [address] [place] [address] Referral ID Status Reason Start Date Expiration Date Visits Re quested Visits Authorized [id number] Closed 10/12/2021 11/12/2021 2 2 Reason Comments Head and Neck Cancer Reason Comments Appointment Patient Question Reason Comments Future Appointment Reason Comments Head and Neck Cancer Reason Comments Orders Patient Update Future Appointment Reason Comments Consult Specialty Diagnoses / Procedures Referred By Contac t Referred To Contact Radiation Oncology Diagnoses Malignant neoplasm of parotid gland (HCC) Procedures RAD/ONC CONSULT OFFICE/OUTPATIENT NEW HIGH MDM 60 MINUTES Yosef Taylor MD [address] [place] [address] [place] [address] Matt Monreal MD [address] [place] [address] Referral ID Status Reason Start Date Expiration Date V isits Requested Visits Authorized [id number] Closed PCP Requested Referral 03/05/2024 03/05/2025 1 1 Reason Comments OT EVAL Specialty Diagnoses / Procedures Referred By Contac t Referred To Contact OCCUPATIONAL THERAPY Diagnoses Malignant neoplasm of salivary gland (HCC) Procedures CONSULT TO LYMPHEDEMA THERAPY OFFICE/OUTPATIENT [facility] 60 MINUTES Matt Monreal MD [address] [place] [address] [address] [address] [place] [address] Referral ID Status Reason Start Date Expiration Date V isits Requested Visits Authorized [id number] Closed Auto-Generate d Referral 03/18/2024 03/18/2025 1 1 Reason Onset Date Comments Simulation Request Form 03/20/2024 Reason Comments Consult Specialty Diagnoses / Procedures Referred By Contac t Referred To Contact [facility] / [facility] Diagnoses Malignant neoplasm of parotid gland (HCC) Procedures CONSULT TO HEMATOLOGY/ONCOLOGY OFFICE/OUTPATIENT [facility] 60 MINUTES Yosef Taylor MD [address] [place] [address] [place] [address] Referral ID Status Reason Start Date Expiration Date V isits Requested Visits Authorized [id number] Closed PCP Requested Referral 03/05/2024 03/05/2025 1 1 Specialty Diagnoses / Procedures Referred By Contac t Referred To Contact Radiation Oncology / RADIATION ONCOLOGY Diagnoses Malignant neoplasm of major salivary gland, unspecified head and neck (mask, IV contrast; sim dr taylor Procedures SIMULATION Yosef Barnes MD [address] [place] [address] [place] [address] Yosef Taylor MD [address] [place] [address] [place] [address] Referral ID Status Reason Start Date Expiration Date V isits Requested Visits Authorized [id number] Authorized 04/08/2024 06/08/2024 31 31 Reason Comments Radiotherapy On-treatment Visit Specialty Diagnoses / Procedures Referred By Contac t Referred To Contact CT IMAGING Diagnoses Malignant neoplasm of head, face and neck (HCC) Procedures CT CHEST W IVCON DIAGNOSTIC COMPUTED TOMOGRAPHY THORAX W/CONTRAST Yosef Taylor MD [address] [facility] [place] [address] [place] [address] Referral ID Status Reason Start Date Expiration Date V isits Requested Visits Authorized [id number] Closed Auto-Generate d Referral 04/27/2022 05/27/2022 2 1 Reason Comments Cancer 1 month renny Reason Comments Patient Update Nurse Call post radi ation Reason Comments Cancer 6 week cancer rechec k Reason Comments Orders Specialty Diagnoses / Procedures Referred By Contac t Referred To Contact CT IMAGING 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) Procedures CT CHEST W IVCON DIAGNOSTIC COMPUTED TOMOGRAPHY THORAX W/CONTRAST Yosef Taylor MD [address] [facility] [place] [address] [place] [address] Referral ID Status Reason Start Date Expiration Date Visits Requested Visits Authorized [id number] Pending Review Auto-Genera iman Referral Patient Cleared - Admin/Chair man/Directo r advise to proceed or did not respond 07/18/2024 07/21/2025 1 1 Reason Comments Post-op 1 month renny Reason Comments Results Reason Comments Cancer Reason Comments Cancer 6 week renny Care Teams (unrecognized sec tion and content) Tc Operator Relationship Specialty Start Date End Date Tristian Pacheco MD [address] [place] [address] PCP - General Family Practice 02/18/21 Santiago Villalba MD [address] [facility] [place] [address] Physician Hematology/Oncology 03/12/21 Magalis Voss, LEAD IOS DEVELOPER.LATEX SPOOLER [address] [facility] [place] [address] Nurse Practitioner Hematology/Oncology 03/12/21 Yosef Taylor MD [address] [facility] [address] [place], [place] [address] Physician Radiation Oncology 03/12/21 Tc Operator Relationship Specialty Start Date End Date Tristian Pacheco MD [address] [facility] [place] [phone] PCP - General Family Practice 02/18/21 Santiago Villalba MD [address] [facility] [address] Physician Hematology/Oncology 03/12/21 Magalis Voss, LEAD IOS DEVELOPER.LATEX SPOOLER [address] [facility] [place] [address] Nurse Practitioner Hematology/Oncology 03/12/21 Yosef Taylor MD [address] [facility] [address] Physician Radiation Oncology 03/12/21 Tc Operator Relationship Specialty Start Date End Date Tristian Pacheco MD [address] [facility] [place] [phone] PCP - General Family Medicine 02/18/21 Santiago Villalba MD [address] [facility] [address] Physician Hematology/Oncology 03/12/21 Magalis Voss, LEAD IOS DEVELOPER.LATEX SPOOLER [address] [facility] [address] Nurse Practitioner Hematology/Oncology 03/12/21 Yosef Taylor MD [address] [facility] [address] Physician Radiation Oncology 03/12/21 Tc Operator Relationship Specialty Start Date End Date Tristian Pacheco MD [address] [facility] [place] [phone] PCP - General Family Medicine 02/18/21 Santiago Villalba MD [address] [facility] [place] [address] Physician Hematology/Oncology 03/12/21 Magalis Voss, LEAD IOS DEVELOPER.LATEX SPOOLER [address] [facility] [place] [address] Nurse Practitioner Hematology/Oncology 03/12/21 Yosef Taylor MD [address] [facility] [place] [address] Physician Radiation Oncology 03/12/21 Tc Operator Relationship Specialty Start Date End Date Tristian Pacheco MD [address] [facility] [place] [address] PCP - General Family Medicine 02/18/21 Santiago Villalba MD [address] [facility] [place] [address] Physician Hematology/Oncology 03/12/21 Magalis Voss, LEAD IOS DEVELOPER.LATEX SPOOLER [address] [facility] [place] [address] Nurse Practitioner Hematology/Oncology 03/12/21 Yosef Taylor MD [address] [facility] [place] [address] Physician Radiation Oncology 03/12/21 Team Status: Inactive Member Role Status Dates Khadar Hill DO Attending Provider Active S tart: January 10, 2024 End: January 10, 2024 Team Status: Active Member Role Status Dates Tristian Pacheco MD Primary Care Provider Active Team Status: Inactive Member Role Status Dates Khadar Hill DO Attending Provider Active S tart: January 15, 2024 End: January 15, 2024 Tristian Pacheco MD Primary Care Provider Active Start: January 15, 2024 End: January 15, 2024 Team Status: Inactive Member Role Status Dates Khadar Hill DO Attending Provider Active S tart: January 10, 2024 End: January 10, 2024 Tristian Pacheco MD Primary Care Provider Active Start: January 10, 2024 End: January 10, 2024 Team Status: Inactive Member Role Status Dates Tristian Pacheco MD Primary Care Provider Active Start: February 09, 2024 End: February 09, 2024 Khadar Hill DO Attending Provider Active S tart: February 09, 2024 End: February 09, 2024 Team Status: Inactive Member Role Status Dates Tristian Pacheco MD Primary Care Provider Active Start: February 23, 2024 End: February 24, 2024 Khadar Hill DO Admit Provider, Att ending Provider Active Start: February 23, 2024 End: February 24, 2024 Tc Operator Relationship Specialty Start Date End Date Tristian Pacheco MD [address] [place] [phone] PCP - General Family Medicine 02/18/21 Santiago Villalba MD [address] [place] [address] [place] [address] Physician Hematology/Oncology 03/12/21 Magalis Voss APRN.CNP [address] [place] [address] [place] [address] Nurse Practitioner Hematology/Oncology 03/12/21 Yosef Taylor MD [address] [facility] [place] [address] Physician Radiation Oncology 03/12/21 Tc Operator Relationship Specialty Start Date End Date Tristian Pacheco MD [address] [place] [address] PCP - General Family Medicine 02/18/21 Santiago Villalba MD [address] [facility] [address] Physician Hematology/Oncology 03/12/21 Magalis Voss, LEAD IOS DEVELOPER.LATEX SPOOLER [address] [facility] [address] Nurse Practitioner Hematology/Oncology 03/12/21 Yosef Taylor MD [address] [facility] [place] [address] Physician Radiation Oncology 03/12/21 Tc Operator Relationship Specialty Start Date End Date Tristian Pacheco MD [address] [place] [address] PCP - General Family Medicine 02/18/21 Santiago Villalba MD [address] [facility] [address] Physician Hematology/Oncology 03/12/21 Magalis Voss, LEAD IOS DEVELOPER.LATEX SPOOLER [address] [facility] [place] [address] Nurse Practitioner Hematology/Oncology 03/12/21 Yosef Taylor MD [address] [facility] [place] [address] Physician Radiation Oncology 03/12/21 Tc Operator Relationship Specialty Start Date End Date Tristian Pacheco MD [address] [place] [address] PCP - General Family Medicine 02/18/21 Santiago Villalba MD [address] [place] [address] Physician Hematology/Oncology 03/12/21 Magalis Voss, LEAD IOS DEVELOPER.LATEX SPOOLER [address] [place] [address] Nurse Practitioner Hematology/Oncology 03/12/21 Yosef Taylor MD [address] [place] [address] Physician Radiation Oncology 03/12/21 Tc Operator Relationship Specialty Start Date End Date Tristian Pacheco MD [address] [place] [address] PCP - General Family Medicine 02/18/21 Santiago Villalba MD [address] [place] [address] Physician Hematology/Oncology 03/12/21 Magalis Voss, LEAD IOS DEVELOPER.LATEX SPOOLER [address] [place] [address] Nurse Practitioner Hematology/Oncology 03/12/21 Yosef Taylor MD [address] [place] [address] Physician Radiation Oncology 03/12/21 Tc Operator Relationship Specialty Start Date End Date Tristian Pacheco MD [address] [place] [phone] PCP - General Family Medicine 02/18/21 Santiago Villalba MD [address] [facility] [place] [address] Physician Hematology/Oncology 03/12/21 Magalis Voss, LEAD IOS DEVELOPER.LATEX SPOOLER [address] [facility] [place] [address] Nurse Practitioner Hematology/Oncology 03/12/21 Yosef Taylor MD [address] [facility] [place] [address] Physician Radiation Oncology 03/12/21 Tc Operator Relationship Specialty Start Date End Date Tristian Pacheco MD [address] [place] [phone] PCP - General Family Medicine 02/18/21 Santiago Villalba MD [address] [facility] [place] [address] Physician Hematology/Oncology 03/12/21 Magalis Voss, LEAD IOS DEVELOPER.LATEX SPOOLER [address] [facility] [place] [address] Nurse Practitioner Hematology/Oncology 03/12/21 Yosef Taylor MD [address] [facility] [place] [address] Physician Radiation Oncology 03/12/21 Tc Operator Relationship Specialty Start Date End Date Tristian Pacheco MD [address] [place] [phone] PCP - General Family Medicine 02/18/21 Santiago Villalba MD [address] [facility] [place] [address] Physician Hematology/Oncology 03/12/21 Magalis Voss, LEAD IOS DEVELOPER.LATEX SPOOLER [address] [facility] [address] Nurse Practitioner Hematology/Oncology 03/12/21 Yosef Taylor MD [address] [facility] [place] [address] Physician Radiation Oncology 03/12/21 Tc Operator Relationship Specialty [place] [address] [place] [phone] PCP - General Family Medicine 02/18/21 Santiago Villalba MD [address] [facility] [place] [address] Physician Hematology/Oncology 03/12/21 Magalis Voss, LEAD IOS DEVELOPER.LATEX SPOOLER [address] [facility] [place] [address] Nurse Practitioner Hematology/Oncology 03/12/21 Yosef Taylor MD [address] [facility] [place] [address] Physician Radiation Oncology 03/12/21 Tc Operator Relationship Specialty Start Date End Date Tristian Pacheco MD [address] [place] [phone] PCP - General Family Medicine 02/18/21 Santiago Villalba MD [address] [facility] [place] [address] Physician Hematology/Oncology 03/12/21 Magalis Voss, LEAD IOS DEVELOPER.LATEX SPOOLER [address] [facility] [address] Nurse Practitioner Hematology/Oncology 03/12/21 Yosef Taylor MD [address] [facility] [address] Physician Radiation Oncology 03/12/21 Tc Operator Relationship Specialty Start Date End Date Tristian Pacheco MD [address] [place] [address] PCP - General Family Medicine 02/18/21 Santiago Villalba MD [address] [facility] [address] Physician Hematology/Oncology 03/12/21 Magalis Voss, LEAD IOS DEVELOPER.LATEX SPOOLER [address] [facility] [address] Nurse Practitioner Hematology/Oncology 03/12/21 Yosef Taylor MD [address] [facility] [place] [address] Physician Radiation Oncology 03/12/21 Tc Operator Relationship Specialty Start Date End Date Tristian Pacheco MD [address] [place] [address] PCP - General Family Medicine 02/18/21 Santiago Villalba MD [address] [facility] [address] Physician Hematology/Oncology 03/12/21 Magalis Voss, LEAD IOS DEVELOPER.LATEX SPOOLER [address] [place] [address] Nurse Practitioner Hematology/Oncology 03/12/21 Yosef Taylor MD [address] [place] [address] Physician Radiation Oncology 03/12/21 Tc Operator Relationship Specialty Start Date End Date Tristian Pacheco MD [address] [place] [address] PCP - General Family Medicine 02/18/21 Santiago Villalba MD [address] [facility] [address] Physician Hematology/Oncology 03/12/21 Magalis Voss, LEAD IOS DEVELOPER.LATEX SPOOLER [address] [facility] [address] Nurse Practitioner Hematology/Oncology 03/12/21 Yosef Taylor MD [address] [place] [address] Physician Radiation Oncology 03/12/21 Tc Operator Relationship Specialty Start Date End Date Tristian Pacheco MD [address] [place] [phone] PCP - General Family Medicine 02/18/21 Santiago Villalba MD [address] [place] [address] Physician Hematology/Oncology 03/12/21 Magalis Voss, LEAD IOS DEVELOPER.LATEX SPOOLER [address] [place] [address] Nurse Practitioner Hematology/Oncology 03/12/21 Yosef Taylor MD [address] [facility] [place] [address] Physician Radiation Oncology 03/12/21 Tc Operator Relationship Specialty Start Date End Date Tristian Pacheco MD [address] [place] [phone] PCP - General Family Medicine 02/18/21 Santiago Villalba MD [address] [facility] [place] [address] Physician Hematology/Oncology 03/12/21 Magalis Voss, LEAD IOS DEVELOPER.LATEX SPOOLER [address] [facility] [place] [address] Nurse Practitioner Hematology/Oncology 03/12/21 Yosef Taylor MD [address] [facility] [place] [address] Physician Radiation Oncology 03/12/21 Tc Operator Relationship Specialty Start Date End Date Tristian Pacheco MD [address] [place] [address] PCP - General Family Medicine 02/18/21 Santiago Villalba MD [address] [facility] [place] [address] Physician Hematology/Oncology 03/12/21 Magalis Voss, LEAD IOS DEVELOPER.LATEX SPOOLER [address] [facility] [place] [address] Nurse Practitioner Hematology/Oncology 03/12/21 Yosef Taylor MD [address] [facility] [place] [address] Physician Radiation Oncology 03/12/21 Tc Operator Relationship Specialty Start Date End Date Tristian Pacheco MD [address] [place] [phone] PCP - General Family Medicine 02/18/21 Santiago Villalba MD [address] [facility] [place] [address] Physician Hematology/Oncology 03/12/21 Magalis Voss, LEAD IOS DEVELOPER.LATEX SPOOLER [address] [facility] [place] [address] Nurse Practitioner Hematology/Oncology 03/12/21 Yosef Taylor MD [address] [facility] [place] [address] Physician Radiation Oncology 03/12/21 Tc Operator Relationship Specialty Start Date End Date Tristian Pacheco MD [address] [place] [address] PCP - General Family Medicine 02/18/21 Santiago Villalba MD [address] [facility] [place] [address] Physician Hematology/Oncology 03/12/21 Magalis Voss, LEAD IOS DEVELOPER.LATEX SPOOLER [address] [facility] [place] [address] Nurse Practitioner Hematology/Oncology 03/12/21 Yosef Taylor MD [address] [facility] [place] [address] Physician Radiation Oncology 03/12/21 Tc Operator Relationship Specialty Start Date End Date Tristian Pacheco MD [address] [place] [phone] PCP - General Family Medicine 04/22/24 Khadar [place] DO [address] [place] [address] Otolaryngology 12/18/23 Tc Operator Relationship Specialty Start Date End Date Tristian Pacheco MD [address] [place] [phone] PCP - General Family Medicine 04/22/24 Khadar [place], [address] [place] [address] Otolaryngology 12/18/23 Tc Operator Relationship Specialty Start Date End Date Tristian Pacheco MD [address] [place] [phone] PCP - General Family Medicine 02/18/21 Santiago Villalba MD [address] [facility] [place] [address] Physician Hematology/Oncology 03/12/21 Magalis Voss APRN.LATEX SPOOLER [address] [facility] [place] [address] Nurse Practitioner Hematology/Oncology 03/12/21 Yosef Taylor MD [address] [place] [address] Physician Radiation Oncology 03/12/21 Tc Operator Relationship Specialty Start Date End Date Tristian Pacheco MD [address] [place] [address] PCP - General Family Medicine 02/18/21 Santiago Villalba MD [address] [place] [address] Physician Hematology/Oncology 03/12/21 Magalis Voss, LEAD IOS DEVELOPER.LATEX SPOOLER [address] [facility] [address] Nurse Practitioner Hematology/Oncology 03/12/21 Yosef Taylor MD [address] [facility] [address] Physician Radiation Oncology 03/12/21 Tc Operator Relationship Specialty Start Date End Date Tristian Pacheco MD [address] [place] [phone] PCP - General Family Medicine 02/18/21 Santiago Villalba MD [address] [place] [address] Physician Hematology/Oncology 03/12/21 Magalis Voss, LEAD IOS DEVELOPER.LATEX SPOOLER [address] [place] [address] Nurse Practitioner Hematology/Oncology 03/12/21 Yosef Taylor MD [address] [place] [address] Physician Radiation Oncology 03/12/21 Tc Operator Relationship Specialty Start Date End Date Tristian Pacheco MD [address] [place] [phone] PCP - General Family Medicine 04/22/24 Khadar [place] DO [address] [place] [address] Otolaryngology 12/18/23 Tc Operator Relationship Specialty Start Date End Date Tristian Pacheco MD [address] [place] [phone] PCP - General Family Medicine 04/22/24 Khadar [place], DO [address] [place] [address] Otolaryngology 12/18/23 Tc Operator Relationship Specialty Start Date End Date Tristian Pacheco MD [address] [place] [phone] PCP - General Family Medicine 02/18/21 Santiago Villalba MD [address] [place] [address] Physician Hematology/Oncology 03/12/21 Magalis Voss, ALIREZA.LATEX SPOOLER [address] [place] [address] Nurse Practitioner Hematology/Oncology 03/12/21 Yosef Taylor MD [address] [place] [address] Physician Radiation Oncology 03/12/21 Tc Operator Relationship Specialty Start Date End Date Tristian Pacheco MD [address] [place] [address] PCP - General Family Medicine 02/18/21 Santiago Villalba MD [address] [place] [address] Physician Hematology/Oncology 03/12/21 Magalis Voss, LEAD IOS DEVELOPER.LATEX SPOOLER [address] [place] [address] Nurse Practitioner Hematology/Oncology 03/12/21 Yosef Taylor MD [address] [place] [address] Physician Radiation Oncology 03/12/21 Tc Operator Relationship Specialty Start Date End Date Tristian Pacheco MD [address] [place] [phone] PCP - General Family Medicine 02/18/21 Santiago Villalba MD [address] [place] [address] Physician Hematology/Oncology 03/12/21 Magalis Voss, LEAD IOS DEVELOPER.LATEX SPOOLER [address] [place] [address] Nurse Practitioner Hematology/Oncology 03/12/21 Yosef Taylor MD [address] [place] [address] Physician Radiation Oncology 03/12/21 Tc Operator Relationship Specialty Start Date End Date Tristian Pacheco MD [address] [place] [phone] PCP - General Family Medicine 02/18/21 Santiago Villalba MD [address] [facility] [place] [address] Physician Hematology/Oncology 03/12/21 Magalis Voss, LEAD IOS DEVELOPER.LATEX SPOOLER [address] [facility] [place] [address] Nurse Practitioner Hematology/Oncology 03/12/21 Yosef Taylor MD [address] [facility] [place] [address] Physician Radiation Oncology 03/12/21 Tc Operator Relationship Specialty Start Date End Date Tristian Pacheco MD [address] [place] [phone] PCP - General Family Medicine 02/18/21 Santiago Villalba MD [address] [facility] [place] [address] Physician Hematology/Oncology 03/12/21 Magalis Voss, LEAD IOS DEVELOPER.LATEX SPOOLER [address] [facility] [place] [address] Nurse Practitioner Hematology/Oncology 03/12/21 Yosef [place] MD [address] [place] [address] Physician Radiation Oncology 03/12/21 Tc Operator Relationship Specialty Start Date End Date Tristian Pacheco MD [address] [place] [phone] PCP - General Family Medicine 04/22/24 Khadar [place] DO [address] [place] [address] Otolaryngology 12/18/23 Team Status: Inactive Member Role Status Dates Tristian Pacheco MD Primary Care Provider Active Start: November 29, 2024 End: November 29, 2024 Felicia Mendoza APRN [employer] Attending Provider Act teri Start: November 29, 2024 End: November 29, 2024 Tc Operator Relationship Specialty Start Date End Date Tristian Pacheco MD [address] [place] [phone] PCP - General Family Medicine 02/18/21 Santiago Villalba MD [address] [facility] [place] [address] Physician Hematology/Oncology 03/12/21 Magalis Voss APRN.LATEX SPOOLER [address] [facility] [place] [address] Nurse Practitioner Hematology/Oncology 03/12/21 Yosef [place] MD [address] [facility] [place] [address] Physician Radiation Oncology 03/12/21 Tc Operator Relationship Specialty Start Date End Date Tristian Pacheco MD [address] [place] [address] PCP - General Family Medicine 04/22/24 Khadar [place] DO [address] [place] [address] Otolaryngology 12/18/23 Tc Operator Relationship Specialty Start Date End Date Tristian Pacheco MD [address] [place] [address] PCP - General Family Medicine 04/22/24 Khadar [place] DO [address] [place] [address] Otolaryngology 12/18/23 Tc Operator Relationship Specialty Start Date End Date Tristian Pacheco MD [address] [place] [address] PCP - General Family Medicine 04/22/24 Khadar [place] DO [address] [place] [address] Otolaryngology 12/18/23 Tc Operator Relationship Specialty Start Date End Date Tristian Pacheco MD [address] [place] [address] PCP - General Family Medicine 04/22/24 Khadar [place] DO [address] [place] [address] Otolaryngology 12/18/23 FOR RECORDS PERTAINING TO PATIENTS WHO ARE OR HAVE BEEN ENROLLED IN A CHEMICAL DEPENDENCY/SUBSTANCEABUSE PROGRAM, SOME INFORMATION MAY BE OMITTED. This clinical summary was aggregated from multiple sources. Caution should be exercised in using it in the provision of clinical care. This summary normalizes information from multiple sources, and as a consequence, information in this document may materially change the coding, format and clinical context of patient data. In addition, data may be omitted in some cases. CLINICAL DECISIONS SHOULD BE BASED ON THE PRIMARY CLINICAL RECORDS. [facility]. provides no warranty or guarantee of the accuracy or completeness of information in this document.
[2025-04-05 09:20] LABS: Hematocrit 47.3 % (42.0-54.0); Hemoglobin 16.4 g/dL (14.0-18.0); Immature Granulocytes Abs Auto 0.05 10^3/uL (0.00-0.03); Immature Granulocytes Pct Auto 0.9 % (0.0-0.5); Lymphocytes Absolute Auto 0.9 10^3/uL (1.2-3.8); Mean Corpuscular HGB Conc 34.7 g/dL (29.9-35.2); Mean Corpuscular Hemoglobin 29.2 pg (25.9-34.0); Mean Corpuscular Volume 84.3 fL (80.0-94.0); Platelet Count 242 10^3/uL (150-450); Red Blood Count 5.61 10^6/uL (4.70-6.10); White Blood Count 5.8 10^3/uL (4.0-11.0)
[2025-04-05 09:54] LABS: Alanine Aminotransferase 45 U/L (16-63); Albumin Globulin Ratio 1.1; Albumin Level 4.0 g/dL (3.4-5.0); Alkaline Phosphatase 69 U/L (46-116); Anion Gap 12.0; Aspartate Amino Transferase 19 U/L (15-37); Blood Urea Nitrogen 16.0 mg/dL (7.0-18.0); Calcium 9.1 mg/dL (8.5-10.1); Carbon Dioxide 27.2 mmol/L (21.0-32.0); Chloride 105 mmol/L (98-107); Cholesterol 143 mg/dL (<=200); Estimated GFR (African America >60 (>=60 mL/min/1.73m^2); Estimated GFR (Non-African Ame >60 (>=60 mL/min/1.73m^2); Globulin 3.5 g/dL; Glucose 99 mg/dL (74-106); HDL Cholesterol 38 mg/dL (40-60); Potassium 4.2 mmol/L (3.5-5.1); Sodium 140 mmol/L (136-145); TSH W/ REFLEX FT4 5.032 uIU/mL (0.358-3.740); Total Protein 7.5 g/dL (6.4-8.2); Triglycerides 199 mg/dL (<=150); VLDL CHOLESTEROL 39.8 mg/dL
== END 2025-04-05 08:42 | disposition home or self-care (01) ==
LOC: LAB 08:43
PROVIDERS: PCP Family Medicine; Visit Provider Family Medicine
DX: Z00.00 Encounter for general adult medical examination without abnormal findings (principal)
CPT/HCPCS: 36415; 80053; 80061; 83036; 84439; 84443; 85025

== ENCOUNTER 2025-06-23 15:06 | Outpatient (OUT) | payer OTHER, SELFPAY ==
--- OUTSIDE RECORDS SUMMARY | 2025-06-11 11:33 | XMS_ITS | Encounter Summary ---
Author Organization [facility] Address [address] [id number] Phone Care Team Providers Care Steward/Stewardess Deck Name Role Phone Bobbi Vigil MD Primary Care Provider [phone] Reason for Referral * Unlisted Procedure Code (Routine) - New RequestSpecialtyDiagnoses / Procedures Referred By ContactReferred To Contact Procedures NO HEPARIN OR ENOXAPARIN ORDERED Bubba Urias MD [address] [place] [address] Phone: tel: fax: Referral IDStatusReasonStart DateExpiration DateVisits RequestedVisits [id number]/ * Unlisted Procedure Code (Routine) - New RequestSpecialtyDiagnoses / Procedures Referred By ContactReferred To Contact Procedures PATIENT ON THERAPEUTIC ANTICOAGULATION Bubba Urias MD [address] [place] [address] Phone: tel: fax: Referral IDStatusReasonStart DateExpiration DateVisits RequestedVisits [id number] Cetseni09/ * Unlisted Procedure Code (Routine) - New RequestSpecialtyDiagnoses / Procedures Referred By ContactReferred To Contact Procedures INPATIENT ADMISSION NOTIFICATION Bubba Urias MD [address] [place] [address] Phone: tel: fax: Referral IDStatusReasonStart DateExpiration DateVisits RequestedVisits [id number]/ * Radiology (Emergency) - Pending ReviewSpecialtyDiagnoses / ProceduresReferred By ContactReferred To Contact Procedures ECG Bubba Urias MD [address] [phone] Phone: tel: fax: Referral IDStatusReasonStart DateExpiration DateVisits RequestedVisits [id number]/ Reason for Visit * ReasonCommentsDizzinessPt presents to the er per EMS after dizziness and near syncopal episode. 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 EMS started 18 G LAC with NS BP 104/63 HR 125 94 % 66 L NC BS 155. * Auth/CertSpecialtyDiagnoses / ProceduresReferred By ContactReferred To Contact [address] Phone: tel: [address] Phone: tel: Referral IDStatusReasonStart DateExpiration DateVisits RequestedVisits [id number] Encounter Details DateTypeDepartmentCare Team (Latest Contact Info)Olzclhoasuo31/29/2025 12:33 PM EDT - 06/12/2025 1:45 PM EDTHospital Encounter [facility] [address] [id number] Bubba Urias MD [address] [id number] Vinod Doyle MBBS [address] [id number] Elevated troponin Discharge Disposition: Home or Self Care Social History Tobacco UseTypesPacks/DayYears UsedDateSmoking Tobacco: NeverSmokeless Tobacco: Never Tobacco Cessation:Counseling Given: Not Answered Alcohol UseStandard Drinks/WeekCommentsNever0 (1 standard drink = 0.6 oz pure alcohol)AUDIT-CAnswerDate RecordedQ1: How often do you have a drink containing alcohol?Never06/11/2025Q2: How many drinks containing alcohol do you have on a typical day when you are drinking?Patient does not drink06/11/2025Q3: How often do you have six or more drinks on one occasion?Never06/11/2025NCSS - Food InsecurityAnswerDate RecordedWithin the past 12 months, did you worry that your food would run out before you got money to buy more?No06/12/2025Within the past 12 months, did the food you bought just not last and you didn???t have money to getmore?No06/12/2025NCSS - Housing/UtilitiesAnswerDate RecordedDo you have housing?Yes06/12/2025re you worried about losing your housing?No06/12/2025 Within the past 12 months, have you or your family members you live with been unable to get utilities (heat, electricity) when it was really needed?No 06/12/2025NCSS - UtilitiesAnswerDate RecordedWithin the past 12 months, have you or your family members you live with been unable to get utilities (heat, electricity) when it was really needed?No06/12/2025NCSS - TransportationAnswer Date RecordedWithin the past 12 months, has lack of transportation kept you from medical appointments, getting your medicines, non-medical meetings or appointments, work, or from getting things that you need?No06/12/2025Sex and Gender InformationValueDate RecordedSex Assigned at BirthNot on fileLegal Sex Male06/11/2025 12:31 PM EDTGender IdentityNot on fileSexual OrientationNot on filedocumented as of this encounter Last Filed Vital Signs Vital SignReadingTime TakenCommentsBlood Nyzdgqyc304/8706/12/2025 12:50 PM EDT Iuhqm072706/12/2025 12:50 PM SVFUmodkyjqosx33 ??C (98.6 ??F)06/12/2025 12:50 PM EDTRespiratory Ptyr7654 12:50 PM EDTOxygen Uincwkmesn20%06/12/2025 12:50 PM EDTInhaled Oxygen Concentration--Wyjgiv937 kg (233 lb 11 oz)06/12/2025 4:30 AM OKXAkgbvv020.8 cm (5' 10 )06/11/2025 9:43 PM EDTBody Mass Index33.53 06/11/2025 9:43 PM EDTdocumented in this encounter Functional Status * AUDIT-C ScoreAnswerDate of NnoqzuzbkgBexorj872/29/2025 12:41 PM Loren Alfaro RN * QuestionAnswerDate of AssessmentAuthorQ1: How often do you have a drink containing alcohol?Never06/11/2025 12:41 PM Loren Alfaro RNQ2: How many drinks containing alcohol do you have on a typical day when you are drinking?Patient does not drink06/11/2025 12:41 PM Loren Alfaro RNQ3: How often do you have six or more drinks on one occasion?Never06/11/2025 12:41 PM Loren Alfaro RN * Are you deaf or do you have serious difficulty hearing?AnswerDate of QcsrhheatjArjtpgAn18/30/2025 4:24 AM Gladys Wadsworth RN * Are you blind or do you have serious difficulty seeing, even when wearing glasses?AnswerDate of UzhrucxowfOrhbaxWa90/30/2025 4:24 AM Gladys Wadsworth RN * Do you have serious difficulty walking or climbing stairs (5 years or older)? AnswerDate of GxdnyszfpuZsbabyGx05/30/2025 4:24 AM Gladys Wadsworth RN * Do you have difficulty dressing or bathing (5 yrs or older)?AnswerDate of LpgpyzikziRnwgiwTo62/30/2025 4:24 AM Gladys Wadsworth RN * Because of a physical, mental, or emotional condition, do you have difficulty doing errands alone such as visiting a doctor's office or shopping (5 yrs or older)?AnswerDate of FhjvoreiboYpoltpHd66/30/2025 4:24 AM Gladys Wadsworth RN documented as of this encounter Mental Status * Because of a physical, mental, or emotional condition, do you have serious difficulty concentrating, remembering, or making decisions (5 yrs or older)? AnswerEntry DnkbBdhjalHa56/30/2025 4:24 AM Gladys Wadsworth RN documented in this encounter Discharge Instructions * Attachments The following attachments cannot be sent through Care Everywhere. * Weakness: Generalized (Italian) documented in this encounter H&P Notes * DEEPALI Fry - 06/12/2025 12:44 PM EDT Hospital Medicine History and Physical Patient: Maximo Ramos, 1975, [id number] Physician: DEEPALI Fry, Attending Physician Length of stay: 1 days. CHIEF COMPLAINT Maximo Ramos is a 49 y.o. male here for Chief Complaint Patient presents with Dizziness Pt presents to the er per EMS after dizziness and near syncopal episode. 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 EMS started 18 G LAC with NS BP 104/63 HR 125 94 % 66 L NC BS 155. HPI Maximo Ramos is a 49 y.o. male who has a past medical history of Cancer of neck. 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 He denies any history of chest pain shortness breath, with this excessive exercise he was having more body aches recently, he was using ibuprofen 4 tablets per day from sgcz-jnk-efqtcmw, he denies any fever or chills denies any nausea or vomiting. Workup in the ER showed evidence of lactic acidosis acute kidney injury no clear source of infection patient was admitted after he was found to have mildly elevated troponin results. \ PAST MEDICAL HISTORY Past Medical History[1] PAST SURGICAL HISTORY Past Surgical History[2] SOCIAL HISTORY Social History[3] FAMILY HISTORY History reviewed. No pertinent family history. ALLERGIES has no known allergies. HOME MEDICATIONS None CURRENT INPATIENT MEDICATIONS REVIEW OF SYSTEMS Constitutional: Negative for fever or chills. Skin: Negative for rash or itching. HENT: Denies any changes in hearing. Eyes: Negative for blurred vision or double vision. Denies recent changes in vision. Cardiovascular: Negative for chest pain or palpitations. Respiratory: Negative for cough or shortness of breath. Gastrointestinal: Negative for nausea, vomiting, abdominal pain or diarrhea. Has not noted any blood in the stool. Genitourinary: Negative for urgency, dysuria or hematuria. Musculoskeletal: Negative for myalgias or joint pain. Neurological: Negative for headaches or loss of consciousness. Psychiatric: Negative for depression or anxiety. Endocrine: Negative for sweats or polydipsia. PHYSICAL EXAM Temp: [97.6 ??F (36.4 ??C)-98.7 ??F (37.1 ??C)] 98.3 ??F (36.8 ??C) Pulse (Heart Rate): [69-112] 69 Resp Rate: [15-20] 20 BP: (115-170)/(76-111) 129/84 O2 Sat (%): [92 %-96 %] 95 % Weight: [106 kg (233 lb 11 oz)-106.4 kg (234 lb 9.1 oz)] 106 kg (233 lb 11 oz) Vitals: 06/12/25 0745 BP: 129/84 Pulse: 69 Resp: 20 Temp: 98.3 ??F (36.8 ??C) SpO2: 95% Constitutional: Conversant, in no acute distress. Well developed/nourished. Appears stated age.conscious and alert. Head: Normocephalic.non traumatic No masses/lesions. Eyes: No scleral icterus. Conjunctiva clear. Ears/Nose/Mouth/Throat: Nose and ears appear normal. Mucosa moist and intact. Tongue midline. Neck: Supple. No JVD or carotid bruits. No goiter noted. No lymphadenopathy. Skin: Color normal for ethnicity. Warm and dry. Good turgor. No lesions or rashes. Nails without clubbing. Respiratory: Clear to auscultation, normal respiratory effort. No wheezes, rales, rhonchi. Chest expansion symmetrical. Cardiovascular: Regular rate and rhythm. No peripheral edema. Pulses palpable at the ankle. S1 S2 audible. No murmurs. Gastrointestinal: Abdomen soft, nontender, no masses noted. Bowl sounds present. Musculoskeletal: No calf tenderness with palpation, no digital cyanosis or clubbing. Full ROM. Gaitnormal. No deformities. No heat or swelling of joints. Muscle strength normal. Psychiatric: Alert and oriented x 4. Mood and affect appropriate. Neuro: Speech normal, moving all extremities. No focal deficits noted. cranial nerve Grossly intact DATA REVIEW Labs: Recent Results (from the past 36 hours) BASIC METABOLIC PANEL Collection Time: 06/11/25 12:41 PM Result Value Ref Range Sodium 142 136 - 145 mmol/L Potassium 5.1 3.5 - 5.1 mmol/L Chloride 108 (H) 98 - 107 mmol/L Carbon Dioxide 5 (LL) 22 - 29 mmol/L BUN 15 9 - 21 mg/dL Creatinine 1.82 (H) 0.72 - 1.25 mg/dL Glucose 172 (H) 70 - 105 mg/dL Calcium 9.2 8.4 - 10.2 mg/dL Anion Gap 34 mmol/L BUN/CREA Ratio 8 Osmolality (Calc) 304 mOsm/kg Estimated GFR, 49 mL/min/1.73sqM Estimated GFR,Non 40 mL/min/1.73sqM LACTATE, BLOOD Collection Time: 06/11/25 12:41 PM Result Value Ref Range Lactic Acid 19.6 (HH) 0.5 - 2.2 mmol/L TROPONIN Collection Time: 06/11/25 12:41 PM Result Value Ref Range Troponin I <0.010 <0.033 ng/mL B-TYPE NATRIURETIC PEPTIDE (BRAIN) Collection Time: 06/11/25 12:41 PM Result Value Ref Range B-Type Natriuretic Peptide 29 0 - 100 pg/mL TSH Collection Time: 06/11/25 12:41 PM Result Value Ref Range TSH, High Sensitivity 7.255 (H) 0.350 - 4.940 uIU/mL CK Collection Time: 06/11/25 12:41 PM Result Value Ref Range Creatine Kinase 504 (H) 30 - 200 U/L CBC AND ELECTRONIC DIFF Collection Time: 06/11/25 12:41 PM Result Value Ref Range WBC Count 15.0 (H) 4.5 - 11.0 K/uL RBC Count 5.60 Male: 4.2-5.6, Female: 3.8-5.3 M/uL Hemoglobin 16.5 13.1 - 17.2 g/dL Hematocrit 49.2 39.0 - 50.0 % Mean Cell Volume 87.9 80.0 - 99.0 fL Mean Cell Hgb 29.5 Male: 27.0-35.0, Female: 27.0-34.0 pg Mean Cell Hgb Conc 33.5 32.0 - 36.0 g/dL Platelet Count 348 150 - 400 K/uL Mean Platelet Volume 9.4 7.5 - 11.2 fL RBC Distribution 43.1 36.7 - 49.4 fL MANUAL DIFF Collection Time: 06/11/25 12:41 PM Result Value Ref Range WBC Count 15.00 K/uL Neutrophil Segmented Manual 62 % Neutrophil Band % Manual 13 % Lymphocyte % Manual 21 % Monocyte % Manual 2 % Eosinophils % Manual 1 % Metamyelocyte % Manual 1 % Abs Segs Manual 9.30 (H) 1.80 - 7.70 K/uL Abs Bands Manual 1.95 (H) 0.00 - 0.70 K/uL Abs Lymph Manual 3.15 1.00 - 4.80 K/uL Abs [place] Manual 0.30 0.20 - 0.40 K/uL Abs Eos Manual 0.15 K\uL Abs [place] Manual 0.15 >=0.00 K/uL Platelet Comments Specimen integrity checked. Platelets Adequate ACETONE, SERUM, KETONES Collection Time: 06/11/25 12:41 PM Result Value Ref Range Beta Hydroxybutyrate 0.21 0.02 - 0.27 mmol/L ALCOHOL (ETHANOL),BLOOD Collection Time: 06/11/25 12:41 PM Result Value Ref Range Serum Alcohol <10 <10 mg/dL HEPATIC FUNCTION PANEL Collection Time: 06/11/25 12:41 PM Result Value Ref Range Albumin 4.3 3.5 - 5.2 g/dL Bilirubin Direct 0.1 0.0 - 0.5 mg/dL Bilirubin, Total 0.6 0.3 - 1.2 mg/dL Alkaline Phosphatase 87 40 - 150 U/L ALT (SGPT) 32 0 - 55 U/L Total Protein 7.5 6.4 - 8.3 g/dL AST 42 (H) <39 U/L MAGNESIUM Collection Time: 06/11/25 12:41 PM Result Value Ref Range Magnesium 4.8 (H) 1.6 - 2.6 mg/dL VENOUS BLOOD GAS Collection Time: 06/11/25 1:31 PM Result Value Ref Range pH, Venous 7.25 (L) 7.32 - 7.43 pCO2, Venous 35 (L) 41 - 55 mmHg pO2, Venous 87 No normal range established mmHg HCO3, Venous 15 No normal range established mmol/L O2 Saturation 95 No normal range established % Base Excess -11.1 No normal range established mmol/L LACTATE, BLOOD Collection Time: 06/11/25 1:31 PM Result Value Ref Range Lactic Acid 9.4 (HH) 0.5 - 2.2 mmol/L URINE DIPSTICK WITH REFLEX MICROSCOPY Collection Time: 06/11/25 1:46 PM Result Value Ref Range Color Yellow Yellow Urine Bilirubin Negative Negative Appearance Urine Clear Clear Glucose Urine Negative Negative Ketones Urine Negative Negative Blood Urine Moderate (A) Negative pH Urine 6.0 5.0 - 7.0 pH Units Protein Urine 100 mg/dL (A) Negative mg/dL Urobilinogen Urine 0.2 E.U./dL 0.2 - 1.0 Nitrites Urine Negative Negative Leukocyte Esterase Negative Negative Specific [place] Urine >1.030 (H) 1.000 - 1.030 URINE MICROSCOPIC Collection Time: 06/11/25 1:46 PM Result Value Ref Range Squamous Cells 1/hpf = 1+ 1/hpf = 1+, 2-5/hpf = 2+, 0/hpf = 0+, ABSENT WBC Urine 6-9 (A) 0 - 5 /HPF RBC Urine 0-2 0 - 2 /HPF Bacteria, Urine TRACE (A) ABSENT Amorphous, Urine <25% = Slight (A) (none) Fine Granular Casts Rare (A) (none) /LPF Hyaline Casts 1-2 (A) (none) /LPF BASIC METABOLIC PANEL Collection Time: 06/11/25 4:13 PM Result Value Ref Range Sodium 139 136 - 145 mmol/L Potassium 3.8 3.5 - 5.1 mmol/L Chloride 111 (H) 98 - 107 mmol/L Carbon Dioxide 18 (L) 22 - 29 mmol/L BUN 17 9 - 21 mg/dL Creatinine 1.63 (H) 0.72 - 1.25 mg/dL Glucose 117 (H) 70 - 105 mg/dL Calcium 8.1 (L) 8.4 - 10.2 mg/dL Anion Gap 14 mmol/L BUN/CREA Ratio 10 Osmolality (Calc) 293 mOsm/kg Estimated GFR, 55 mL/min/1.73sqM Estimated GFR,Non 46 mL/min/1.73sqM LACTATE, BLOOD Collection Time: 06/11/25 4:13 PM Result Value Ref Range Lactic Acid 1.6 0.5 - 2.2 mmol/L TROPONIN Collection Time: 06/11/25 4:38 PM Result Value Ref Range Troponin I 0.142 (HH) <0.033 ng/mL VENOUS BLOOD GAS Collection Time: 06/11/25 7:41 PM Result Value Ref Range pH, Venous 7.27 (L) 7.32 - 7.43 pCO2, Venous 46 41 - 55 mmHg pO2, Venous 25 No normal range established mmHg HCO3, Venous 21 No normal range established mmol/L O2 Saturation 38 No normal range established % Base Excess -6.3 No normal range established mmol/L TROPONIN Collection Time: 06/11/25 9:58 PM Result Value Ref Range Troponin I 0.180 (HH) <0.033 ng/mL TROPONIN Collection Time: 06/12/25 4:02 AM Result Value Ref Range Troponin I 0.111 (H) <0.033 ng/mL CBC,PLATELETS Collection Time: 06/12/25 4:02 AM Result Value Ref Range WBC Count 10.4 4.5 - 11.0 K/uL RBC Count 4.99 Male: 4.2-5.6, Female: 3.8-5.3 M/uL Hemoglobin 14.4 13.1 - 17.2 g/dL Hematocrit 42.8 39.0 - 50.0 % Mean Cell Volume 85.8 80.0 - 99.0 fL Mean Cell Hgb 28.9 Male: 27.0-35.0, Female: 27.0-34.0 pg Mean Cell Hgb Conc 33.6 32.0 - 36.0 g/dL RBC Distribution Platelet Count 201 150 - 400 K/uL Mean Platelet Volume 8.6 7.5 - 11.2 fL CHEM 7 (LYTES,BUN,CREA,GLUC) Collection Time: 06/12/25 4:02 AM Result Value Ref Range BUN 18 9 - 21 mg/dL Sodium 143 136 - 145 mmol/L Potassium 4.2 3.5 - 5.1 mmol/L Chloride 114 (H) 98 - 107 mmol/L Carbon Dioxide 19 (L) 22 - 29 mmol/L Glucose 93 70 - 105 mg/dL Creatinine 1.60 (H) 0.72 - 1.25 mg/dL Anion Gap 14 mmol/L BUN/CREA Ratio 11 Osmolality (Calc) 300 mOsm/kg Estimated GFR, 56 mL/min/1.73sqM Estimated GFR,Non 47 mL/min/1.73sqM Imaging NUC MYOCARD PERF STRESS MIBI PHARM Result Date: 06/12/2025 Dioni Monsalve MD 06/12/2025 11:21 AM Gated Lexiscan Myocardial Perfusion Scintigraphy Same Day Rest/Stress Procedure Maximo Ramos 1975 49 y.o. male 06/11/2025 12:33 PM No ref. provider found Interpreting Physician: Dioni Monsalve MD Supervising Physician: Dioni Monsalve MD Indication Dehydration [E86.0] Lactic acidosis [E87.20] Elevated troponin [R79.89] Mural thickening of sigmoid colon [K63.9] Baseline Electrocardiogram Sinus rhythm, normal. SPECT Tomography Following the IV injection of 12.8 mCi of IV Cardiolite, TC-99m supine gamma camera imaging was done using 180 degree SPECT technique. Imaging was done in standard short axis, vertical and long axis views. 32.6 mCi of IV Cardiolite was injected immediately after IV Lexiscan injection and SPECT imaging was repeated. Gated SPECT imaging was also done per protocol. Lexiscan Stress Test Results 0.4 mg of IV Lexiscan was injected over 10 seconds. It was immediately flushed with 10 ml IV normal Saline and immediately afterward IV Cardiolite was re injected. - Patient experienced mild shortness of breath after IV Lexiscan infusion Which represents a normal physiological response to IV Lexiscan. - Normal hemodynamic response was noted. - No arrhythmias were noted. - No electrocardiographic changes suggestive of ischemia were noted. Impression Negative electrocardiographic Lexiscan stress test for ischemia. Tomographic Results Normal and uniform uptake of Cardiolite is noted in all other wall segments during stress and at rest. The left ventricular size is normal. Gated SPECT imaging post stress revealed normal wall motion and contractility of all wall segments. The calculated ejection fraction is 73% and the calculated EDV is 139 ml on post stress images. TID is in normal range. No prior studies are available for comparison. Conclusion This is a normal study with no evidence of infarct or stress induced ischemia. ECHOCARDIOGRAM Result Date: 06/12/2025 Indication ======== elevated troponin. Conclusion ========= Normal left ventricular cavity size. No regional wall motion abnormalities were noted. Normal left ventricular ejection fraction. Left ventricular EF 60 - 65 %. Normal global longitudinal strain values -20.4 %. Diastolic function is normal. Normal right ventricular size. Normal right ventricular systolic function. There is mild mitral regurgitation and trivial tricuspid regurgitation. Procedure/Study Quality A transthoracic study was performed including 2D, M-mode, spectral, color-flow and Tissue Doppler imaging. View: This was a technically adequate study. Measure ======= M mode TAPSE 2.7 cm [>=1.7] 2D mode IVSd 0.8 cm LVESV (Auto EF A2C) 35.1 ml LAESVI (MOD A4C) 17 ml/m? [0.6-1.0] LVSV (Auto EF A4C) 72.8 ml LAESV (A-L BIP) 38.6 ml LVIDd 5.0 cm LVSV (Auto EF A2C) 52.2 ml LAESVI (MOD A2C) 15 ml/m? [4.2-5.8] LVEF (Auto EF A2C) 60 % LAESV (MOD BIP) 36.2 ml LVIDs 3.4 cm [52-72] LAESVI (MOD BIP) 16 ml/m? [2.5-4.0] LVEF (Auto EF BIP) 58 % [16-34] LVPWd 0.9 cm [52-72] RAA (s) 15.0 cm? [0.6-1.0] LVEF (MOD BIP) 64 % [10.0-18.0] LVRWT 0.37 [52-72] RAA Index (s) 6.74 cm?/m? [0.24-0.42] RVIDd 3.9 cm LVOT Diam 2.4 cm LVd Mass 176 g RV basal (D1) 3.2 cm Ao Root Diam 3.5 cm [88-224] [2.5-4.1] Ao Asc Diam 3.6 cm LVd Mass Index 79 g/m? RV mid (D2) 2.0 cm [2.6-3.4] [49-115] [1.9-3.5] Ao Asc Diam Index 1.64 cm/m? LVEF (Teich) 60 % RV longit. (D3) 8.2 cm [1.3-1.7] LVd Mass (ASE) 153 g [5.9-8.3] Ao Asc Diam Index (h) 2.05 cm/m [88-224] LAAs Index (A4C) 7.1 cm?/m? LVd Mass Index (ASE) 68 g/m? [7.4-10.4] [49-115] LAESVI (A-L) 17 ml/m? LVEDV (Auto EF A4C) 130.5 ml LVEDV (Auto EF A2C) 87.4 ml LVESV (Auto EF A4C) 57.7 ml Doppler MV E Velocity 0.75 m/s LVOT mean PG 2.28 mmHg AV mean PG 3.59 mmHg MV A Velocity 0.62 m/s LVOT VTI 20.0 cm AV VTI 26.6 cm MV E / A 1.22 LVOT SV 88.0 ml JEANETTE (VTI) 3.3 cm? [0.78-1.78] LVOT SVI 39.5 ml/m? AVAI (VTI) 1.5 cm?/m? MV Dec. Time 177 ms LVOT CO 7.34 l/min JEANETTE (Vmax) 3.3 cm? [143-219] LVOT CI 3.29 l/min/m? AV HR 84 bpm MV PHT 51 ms AV Vmax 1.31 m/s LV HR 83 bpm MVA PHT 4.3 cm? Dimensionless Index 0.74 RAP 8 mmHg MV Dec. [place] 4.24 m/s? AV max PG 6.89 mmHg PV Vmax 1.09 m/s LVOT Vmax 0.98 m/s AV Vmean 0.89 m/s PV max PG 4.76 mmHg LVOT Vmean 0.73 m/s LVOT max PG 3.81 mmHg TDI MV E' Sept 10.6 cm/s MV E / E' Lat 6.49 MV E / Avg E' 6.76 [>=7.0] MV E' Avg 11.1 cm/s [<=14.0] MV E / E' Sept 7.06 TV S' 19.4 cm/s MV E' Lat 11.6 cm/s [>=9.5] [>=10.0] 2D Strain Left Ventricle RUTHANN GLS (RUTHANN A4C) -20. % GLS (RUTHANN APLAX) -20. % GLS avg (RUTHANN) -20.4 % 4 9 [>=-20.0] [>=-20.0] GLS (RUTHANN A2C) -19.9 % [>=-20.0] Left Ventricle Normal left ventricular cavity size. Normal cavity size at systole. The left ventricular wall thickness is normal. Normal volume at diastole. Normal volume at systole. The left ventricular mass is normal. Global systolic function: There is normal global left ventricular contractility. Normal left ventricular ejection fraction. Left ventricular EF 60 - 65 %. Normal global longitudinal strain values -20.4 %. Regional systolic function: Wall motion: No regional wall motion abnormalities were noted. Diastolic function: Diastolic function is normal. Right Ventricle Normal right ventricular size. Normal right ventricular systolic function. Interventricular Septum The interventricular septum is intact. Left Atrium ========= Normal sized left atrium. Interatrial Septum Atrial septum appears to be intact. Right Atrium The right atrial size is normal. Aortic Valve ========= The aortic valve is trileaflet and appears structurally normal. There is no evidence of aortic stenosis. No aortic regurgitation. Mitral Valve ========= The mitral valve appears structurally normal. There is no mitral stenosis. Mild regurgitation. Tricuspid Valve The tricuspid valve appears structurally normal. No stenosis of the tricuspid valve. Trace/physiological tricuspid regurgitation. Pulmonic Valve Pulmonic valve appears structurally normal. No pulmonic valve stenosis. No regurgitation. Aorta/Aortic root Dilated. IVC/Hepatic Veins IVC size: IVC size is normal with greater than 50% inspiratory collapse, suggesting RA pressure ~ 3mmHg. Pericardium There is no pericardial effusion. CT ANEURYSM STUDY WITH CONTRAST CHEST/ABDOMEN/PELVIS Result Date: 06/11/2025 EXAM: [facility] CTA CHEST, CTA ABDOMEN, CTA PELVIS WITH AND WITHOUT CONTRAST, 06/11/2025 14:14 PM CLINICAL INDICATIONS: Dizziness with near syncope, with weakness, chest soreness, lactic acidosis, ams COMPARISON: No prior studies available for comparison. FINDINGS: CTA CHEST Thoracic aorta is normal in caliber and there is no dissection. Pulmonary arteries are normal. No pulmonary embolism. Heart size is normal. No mediastinal, hilar, or axillary lymphadenopathy. Thyroid gland is normal in size and density. The lungs are clear. No compression fracture in the thoracic spine. Sternum is normal. Small hiatal hernia. There is fluid in the esophagus suggesting gastroesophageal reflux and/or esophageal dysmotility. CTA ABDOMEN The abdominal aorta is normal in caliber, and there is no dissection. Liver, spleen, pancreas, adrenal glands, and kidneys are normal. Gallbladder is surgically absent. No ductal dilatation. Normal appendix. No intra-abdominal free air or free fluid. No abnormally dilated loops of bowel. Moderate amount of fluid in the stomach. Gastric wall is not abnormally thickened. Anterior abdominal wall is intact. No compression fracture in the lumbar spine. CTA PELVIS The iliac arterial system is normal. Bladder is normal. Prostate and seminal vesicles are normal in size. Scattered diverticula in the descending colon and sigmoid. There is mild thickening of the wall of the proximal sigmoid colon, with enhancement on image #180 of series 3 and 9. Differential diagnosis includes mild diverticulitis, and colonic neoplasm. No extraluminal abscess. No pelvic or inguinal lymphadenopathy. Pelvic bones and hips are normal. IMPRESSION: 1. Normal aorta 2. Negative for pulmonary embolism 3. Clear lungs 4. Small hiatal hernia with fluid in the esophagus suggesting gastroesophageal reflux and/or esophageal dysmotility 5. Moderate amount of fluid in the stomach 6. 1 cm segment of abnormal proximal sigmoid colon. Differential diagnosis includes mild diverticulitis, and colonic neoplasm 7. Normal appendix HEAD WITHOUT CONTRAST Result Date: 06/11/2025 EXAM: [facility] CT HEAD WITHOUT CONTRAST, 06/11/2025 13:10 PM CLINICAL INDICATIONS: Near syncope. Nonsmoker, ams ,possible head inj? COMPARISON: No prior studies available for comparison. FINDINGS: No intracranial hemorrhage. No midline shift, or mass effect. Both cerebral hemispheres are normal. Basal ganglia, brainstem, and cerebellum are normal. Orbits are normal. Moderate amount of mucosal thickening in the ethmoid air cells. The other sinuses are clear. Middle ear and mastoid air cells are clear bilaterally. Skull is normal. IMPRESSION: 1. Normal brain 2. Ethmoid sinusitis CHEST WITH CONTRAST Result Date: 05/16/2025 * * *Final Report* * * DATE OF EXAM: May 16 2025 8:36AM [facility] 0539 - CT CHEST W IVCON / PROCEDURE REASON: Malignant neoplasm of salivary gland (HCC) Physician Interpretation RESULT: EXAMINATION: CHEST CT WITH CONTRAST CLINICAL HISTORY: Malignant neoplasm of salivary gland. Technique: Spiral CT acquisition of the chest from the thoracic inlet to the upper abdomen following IV contrast. MQ: CTCW_6 Contrast: 100 mL Omnipaque [address] Radiation dose: Integrated Dose-length product (DLP) for this visit = 1189 mGy*cm CT Dose Reduction Employed: Automated exposure control (AEC) Comparison: CT chest performed 12/05/2024 RESULT: Limitations: None. Lines, tubes, and devices: None. Lung parenchyma and airways: No lobar consolidation is seen. There is a stable 2 mm nodular opacity in the left upper lobe (5:62). An additional punctate 1-2 mm nodule is seen posterior medially in the left upper lobe (5:64). No new nodules are seen. The central airways are [...] abdomen. Localizer images: No additional findings. IMPRESSION: Stable CT of the chest. No evidence of intrathoracic metastatic disease. Transcribe Date/Time: May 16 2025 5:03P Dictated by: MOI ROSSI MD This examination was interpreted and the report reviewed and electronically signed by: MOI ROSSI MD on May 16 2025 5:06PM EST Thank you for allowing us to participate in the care of your patient. Should there be any questions regarding this interpretation, please call [phone]. If you are unable to reach us at the number above, please feel free to contact [facility] at [phone]. CT NECK WITH CONTRAST Result Date: 05/16/2025 * * *Final Report* * * DATE OF EXAM: May 16 2025 8:36AM [facility] 0013 - CT NECK SOFT TISSUE W IVCON / PROCEDURE REASON: Malignant neoplasm of salivary gland (HCC) * * * * Physician Interpretation * * * * RESULT: CT NECK SOFT TISSUE W IVCON CLINICAL HISTORY: Malignant neoplasm of salivary gland. TECHNIQUE: A series of contiguous helical scans were performed from the skull base to the aortic arch with intravenous contrast. Supplemental: N/A Contrast: Omnipaque 300. Contrast Dose: 100 cc Route of Administration: IV CT Radiation dose: Integrated Dose-length product (DLP) for this visit = 1189 mGy*cm. CT Dose Reduction Employed: Automated exposure control (AEC) COMPARISON: CT 12/05/2024. RESULT: Localizer images: No additional findings. Postoperative/Treatment Change: Prior operative changes related to right partial pharyngectomy, right lingual tonsillectomy, with surgical clips in the dorsal right aspect of the right tongue along the bilateral neck pain. Prior neck dissection. Small surgical clip in the left parotid. Aerodigestive tract: Normal. Major salivary glands: Normal. Thyroid gland: Normal. Lymph Nodes: No cervical lymphadenopathy by size criteria. Carotid/Parapharyngeal/Retropharyngeal Spaces: Patent extracranial carotid systems and internal jugular veins bilaterally. Otherwise normal. Orbits, Face and Skull Base: Paranasal sinuses, mastoid air cells, and middle ear cavities are clear. Otherwise normal. Imaged intracranial contents: No intracranial mass effect or hydrocephalus. No abnormal intracranial enhancement. Cervical spine and remaining osseous structures: No osteolytic or osteoblastic process. Lung apices: No consolidation or mass. Other: Not applicable. IMPRESSION: No evidence of residual/recurrent disease or pathological cervical chain adenopathy. Transcribe Date/Time: May 16 2025 9:46A Dictated by: HARJINDER KURTZ MD This examination was interpreted and the report reviewed and electronically signed by: HARJINDER KURTZ MD on May 16 2025 9:50AM EST Thank you for allowing us to participate in the care of your patient. Should there be any questions regarding this interpretation, please call [phone]. If you are unable to reach us at the number above, please feel free to contact [facility] at [phone]. ASSESSMENT/ PLAN/ IMPRESSION Principal Problem: Elevated troponin Maximo Ramos is a 49 y.o. male who has a past medical history of Cancer of neck. 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 He denies any history of chest pain shortness breath, with this excessive exercise he was having more body aches recently, he was using ibuprofen 4 tablets per day from [id number], he denies any fever or chills denies any nausea or vomiting. Workup in the ER showed evidence of lactic acidosis acute kidney injury no clear source of infection patient was admitted after he was found to have mildly elevated troponin results. 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 No further intervention planned. Acute kidney injury 1.8 to baseline around 1.18, I suspect due to excessive use of NSAIDs the last few days patient was discouraged from using NSAIDs recheck kidney function tests [address] imaging the does not show any evidence of hydronephrosis structural problem with the kidneys Near syncope thought to be due to exhaustion excessive sweating during physical exercise without enough hydration. Elevated troponin peaked at 0.18, status post stress test that was negative today see results above. Likely subclinical hypothyroidism. TSH 7.25, follow up with PCP. Mild rhabdomyolysis on initial CK level in the 500 range repeat CK level, if the level is not [id number] patient can be discharged Leukocytosis most likely reactive to excessive exercise improved overnight without antibiotic down to 10.4 Incidental finding on imaging small hiatal hernia with fluid in the esophagus suggestive of gastroesophageal reflux disease. Moderate amount of the fluid in the stomach. He had 1 cm segment of abnormal proximal sigmoid colon differential diagnosis include mild diverticulitis or colonic neoplasm patient has no abdominal tenderness plan for outpatient colonoscopy as anoutpatient. Ethmoid sinusitis incidental finding on CT of the head Patient can be discharged to home with follow up kidney function tests in 1 week Addendum 1:34 p.m. 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 DVT prophylaxis with CODE STATUS: ALTERNATIVE DECISION MAKER: Signed, DEEPALI Fry [1] Past Medical History: Diagnosis Date Cancer of neck [2] No past surgical history on file. [3] Social History Socioeconomic History Marital status: Tobacco Use Smoking status: Never Smokeless tobacco: Never Vaping Use Vaping status: Never Used Substance and Sexual Activity Alcohol use: Never Drug use: Never Social Drivers of Health Food Insecurity: No Food Insecurity (06/12/2025) NCSS - Food Insecurity Worried About Running Out of Food in the Last Year: No Ran Out of Food in the Last Year: No Transportation Needs: No Transportation Needs (06/12/2025) NCSS - Transportation Lack of Transportation: No Personal Safety: Not At Risk (06/12/2025) NCSS - Interpersonal Safety Feels Physically and Emotionally Safe: Yes Physically Hurt by Someone: No Humiliated or Emotionally Abused by Someone: No Housing Stability: Not At Risk (06/12/2025) NCSS - Housing/Utilities Has Housing: Yes Worried About Losing Housing: No Unable to Get Utilities: No documented in this encounter Procedure Notes * Dioni Monsalve MD - 06/12/2025 11:11 AM EDTAssociated Order(s): NUC MYOCARD PERF STRESS MIBI PHARM Gated Lexiscan Myocardial Perfusion Scintigraphy Same Day Rest/Stress Procedure Maximo Ramos 1975 49 y.o. male 06/11/2025 12:33 PM No ref. provider found Interpreting Physician: Dioni Monsalve MD Supervising Physician: Dioni Monsalve MD Indication Dehydration [E86.0] Lactic acidosis [E87.20] Elevated troponin [R79.89] Mural thickening of sigmoid colon [K63.9] Baseline Electrocardiogram Sinus rhythm, normal. SPECT Tomography Following the IV injection of 12.8 mCi of IV Cardiolite, TC-99m supine gamma camera imaging was done using 180 degree SPECT technique. Imaging was done in standard short axis, vertical and long axis views. 32.6 mCi of IV Cardiolite was injected immediately after IV Lexiscan injection and SPECT imaging was repeated. Gated SPECT imaging was also done per protocol. Lexiscan Stress Test Results 0.4 mg of IV Lexiscan was injected over 10 seconds. It was immediately flushed with 10 ml IV normalSaline and immediately afterward IV Cardiolite was re injected. - Patient experienced mild shortness of breath after IV Lexiscan infusion Which represents a normal physiological response to IV Lexiscan. - Normal hemodynamic response was noted. - No arrhythmias were noted. - No electrocardiographic changes suggestive of ischemia were noted. Impression Negative electrocardiographic Lexiscan stress test for ischemia. Tomographic Results Normal and uniform uptake of Cardiolite is noted in all other wall segments during stress and at rest. The left ventricular size is normal. Gated SPECT imaging post stress revealed normal wall motionand contractility of all wall segments. The calculated ejection fraction is 73% and the calculated EDV is 139 ml on post stress images. TID is in normal range. No prior studies are available for comparison. Conclusion This is a normal study with no evidence of infarct or stress induced ischemia. documented in this encounter Consult Notes * Dioni Monsalve MD - 06/12/2025 9:34 AM EDTAssociated Order(s): IP CONSULT TO CARDIOLOGY CARDIOLOGY CONSULT Patient: Maximo Rendon, 1975, [id number] Physician: Dioni Monsalve MD, Attending Physician Length of stay: 1 days. CHIEF COMPLAINT Maximo Rendon is a 49 y.o. male here for Chief Complaint Patient presents with Dizziness Pt presents to the er per EMS after dizziness and near syncopal episode. 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 EMS started 18 G LAC with NS BP 104/63 HR 125 94 % 66 L NC BS 155. HPI This 49 y.o. 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 He completed adjuvant radiotherapy to the right neck on 05/10/21. He developed recurrence in the LEFT neck and underwent left lingual tonsillectomy, left 1A-5 neck dissection on 02/23/24. Patient was undergoing training at [employer] yesterday which involved heavy exertional activity. Patient states that about 10 minutes into the activity he was very short of breath, felt fatigued and was very diaphoretic. He developed tunnel vision and became very ligh theaded. Per report at that time he was minimally responsive with yes and no answers but was not able to physically follows commands. He was brought to the ED. In the ED he was ???ill-appearing?? , diaphoretic and fatigued. He had trouble moving his extremities and turning his head but was alert and well oriented. Patient denied having any symptoms of chest pain during this episode. Patient stated that he is normally physically active and denies having any symptoms of exertional chest pain, shortness of breath, palpitations or lightheadedness previously. PAST MEDICAL HISTORY Past Medical History[1] PAST SURGICAL HISTORY Past Surgical History[2] SOCIAL HISTORY Social History[3] FAMILY HISTORY History reviewed. No pertinent family history. ALLERGIES has no known allergies. HOME MEDICATIONS None CURRENT INPATIENT MEDICATIONS REVIEW OF SYSTEMS Review of Systems General ROS: negative for - chills or fever Psychological ROS: negative for - depression or hostility Ophthalmic ROS: negative for - blurry vision or eye pain ENT ROS: negative for - nasal discharge, tinnitus or vertigo Allergy and Immunology ROS: negative for - postnasal drip Hematological and Lymphatic ROS: negative for - bleeding problems or night sweats Respiratory ROS: no cough or wheezing Cardiovascular ROS: no chest pain Gastrointestinal ROS: no abdominal pain, change in bowel habits, or black or bloody stools Musculoskeletal: No joint swelling PHYSICAL EXAM Temp: [96.8 ??F (36 ??C)-98.7 ??F (37.1 ??C)] 98.3 ??F (36.8 ??C) Pulse (Heart Rate): [69-121] 69 Resp Rate: [15-32] 20 BP: (115-170)/(54-111) 129/84 O2 Sat (%): [92 %-96 %] 95 % Weight: [106 kg (233 lb 11 oz)-108 kg (238 lb 1.6 oz)] 106 kg (233 lb 11 oz) Vitals: 06/12/25 0745 BP: 129/84 Pulse: 69 Resp: 20 Temp: 98.3 ??F (36.8 ??C) SpO2: 95% Constitutional: In no acute distress. Well developed/nourished. Head: Normocephalic.non traumatic Eyes: No scleral icterus. Conjunctiva clear. Ears/Nose/Mouth/Throat: Nose and ears appear normal. Neck: Supple. No JVD or carotid bruits. Skin: Color normal for ethnicity. Warm and dry. Respiratory: Clear to auscultation, normal respiratory effort. No wheezes, rales, rhonchi. Cardiovascular: Regular rate and rhythm. S1 S2 audible. No murmurs, rub or gallop rhythm. No peripheral edema. DPs 2+ and bilaterally symmetrical Gastrointestinal: Abdomen soft, nontender. Musculoskeletal: No calf tenderness with palpation, no digital cyanosis or clubbing. Full ROM. Psychiatric: Alert and oriented x 4. Mood and affect appropriate. Neuro: Speech normal, moving all extremities. No focal motor or sensory deficits noted. DATA REVIEW CBC Lab Results Component Value Date WBC 10.4 06/12/2025 HGB 14.4 06/12/2025 HCT 42.8 06/12/2025 PLATELET 201 06/12/2025 MCV 85.8 06/12/2025 EDIF Lab Results Component Value Date RBCDISTRIBU 43.1 06/11/2025 EOSINOPHILS 1 06/11/2025 LYMPHOCYTABS 3.15 06/11/2025 EOSINOPHLABS 0.15 06/11/2025 PLATELET 201 06/12/2025 MPV 8.6 06/12/2025 Lab Results Component Value Date SODIUM 143 06/12/2025 POTASSIUM 4.2 06/12/2025 CHLORIDE 114 (H) 06/12/2025 CO2 19 (L) 06/12/2025 BUN 18 06/12/2025 CREATSERUM 1.60 (H) 06/12/2025 GLUCOSE 93 06/12/[address] ANEURYSM STUDY WITH CONTRAST CHEST/ABDOMEN/PELVIS Result Date: 06/11/2025 EXAM: [facility] CTA CHEST, CTA ABDOMEN, CTA PELVIS WITH AND WITHOUT CONTRAST, 06/11/2025 14:14 PM CLINICAL INDICATIONS: Dizziness with near syncope, with weakness, chest soreness, lactic acidosis, ams COMPARISON: No prior studies available for comparison. FINDINGS: CTA CHEST Thoracic aorta is normal in caliber and there is no dissection. Pulmonary arteries are normal. No pulmonary embolism. Heart size is normal. No mediastinal, hilar, or axillary lymphadenopathy. Thyroid gland is normal in size and density. The lungs are clear. No compression fracture in the thoracic spine. Sternum is normal. Small hiatal hernia. There is fluid in the esophagus suggesting gastroesophageal reflux and/or esophageal dysmotility. CTA ABDOMEN The abdominal aorta is normal in caliber, and there is no dissection. Liver, spleen, pancreas, adrenal glands, and kidneys are normal. Gallbladder is surgically absent. No ductal dilatation. Normal appendix. No intra-abdominal free air or free fluid. No abnormally dilated loops of bowel. Moderate amount of fluid in the stomach. Gastric wall is not abnormally thickened. Anterior abdominal wall is intact. No compression fracture in the lumbar spine. CTA PELVIS The iliac arterial system is normal. Bladder is normal. Prostate and seminal vesicles are normal in size. Scattered diverticula in the descending colon and sigmoid. There is mild thickening of the wall of the proximal sigmoid colon, with enhancement on image #180 of series 3 and 9. Differential diagnosis includes mild diverticulitis, and colonic neoplasm. No extraluminal abscess. No pelvic or inguinal lymphadenopathy. Pelvic bones and hips are normal. IMPRESSION: 1. Normal aorta 2. Negative for pulmonary embolism 3. Clear lungs 4. Small hiatal hernia with fluid in the esophagus suggesting gastroesophageal reflux and/or esophageal dysmotility 5. Moderate amount of fluid in the stomach 6. 1 cm segment of abnormal proximal sigmoid colon. Differential diagnosis includes mild diverticulitis, and colonic neoplasm 7. Normal appendix HEAD WITHOUT CONTRAST Result Date: 06/11/2025 EXAM: [facility] CT HEAD WITHOUT CONTRAST, 06/11/2025 13:10 PM CLINICAL INDICATIONS: Near syncope. Nonsmoker, ams ,possible head inj? COMPARISON: No prior studies available for comparison. FINDINGS: No intracranial hemorrhage. No midline shift, or mass effect. Both cerebral hemispheres are normal. Basal ganglia, brainstem, and cerebellum are normal. Orbits are normal. Moderate amount of mucosal thickening in the ethmoid air cells. The other sinuses are clear. Middle ear and mastoid air cells are clear bilaterally. Skull is normal. IMPRESSION: 1. Normal brain 2. Ethmoid sinusitis CHEST WITH CONTRAST Result Date: 05/16/2025 * * *Final Report* * * DATE OF EXAM: May 16 2025 8:36AM [facility] 0539 - CT CHEST W IVCON / PROCEDURE REASON: Malignant neoplasm of salivary gland (HCC) * * * * Physician Interpretation * * * * RESULT: EXAMINATION: CHEST CT WITH CONTRAST CLINICAL HISTORY: Malignant neoplasm of salivary gland. Technique: Spiral CT acquisition of the chest from the thoracic inlet to the upper abdomen following IV contrast. MQ: CTCW_6 Contrast: 100 mL Omnipaque [address] Radiation dose: Integrated Dose-length product (DLP) for this visit = 1189 mGy*cm CT Dose Reduction Employed: Automated exposure control (AEC) Comparison: CT chest performed 12/05/2024 RESULT: Limitations: None. Lines, tubes, and devices: None. Lung parenchyma and airways: No lobar consolidation is seen. There is a stable 2 mm nodular opacity in the left upper lobe (5:62). An additional punctate 1-2 mm nodule is seen posterior medially in the left upper lobe (5:64). No new nodules are seen. The central airways are [...] abdomen. Localizer images: No additional findings. IMPRESSION: Stable CT of the chest. No evidence of intrathoracic metastatic disease. Transcribe Date/Time: May 16 2025 5:03P Dictated by: MOI ROSSI MD This examination was interpreted and the report reviewed and electronically signed by: MOI ROSSI MD on May 16 2025 5:06PM EST Thank you for allowing us to participate in the care of your patient. Should there be any questions regarding this interpretation, please call [phone]. If you are unable to reach us at the number above, please feel free to contact [facility] at [phone]. CT NECK WITH CONTRAST Result Date: 05/16/2025 * * *Final Report* * * DATE OF EXAM: May 16 2025 8:36AM [facility] 0013 - CT NECK SOFT TISSUE W IVCON / PROCEDURE REASON: Malignant neoplasm of salivary gland (HCC) * * * * Physician Interpretation * * * * RESULT: CT NECK SOFT TISSUE W IVCON CLINICAL HISTORY: Malignant neoplasm of salivary gland. TECHNIQUE: A series of contiguous helical scans were performed from the skull base to the aortic arch with intravenous contrast. Supplemental: N/A Contrast: Omnipaque 300. Contrast Dose: 100 cc Route of Administration: IV CT Radiation dose: Integrated Dose-length product (DLP) for this visit = 1189 mGy*cm. CT Dose Reduction Employed: Automated exposure control (AEC) COMPARISON: CT 12/05/2024. RESULT: Localizer images: No additional findings. Postoperative/Treatment Change: Prior operative changes related to right partial pharyngectomy, right lingual tonsillectomy, with surgical clips in the dorsal right aspect of the right tongue along the bilateral neck pain. Prior neck dissection. Small surgical clip in the left parotid. Aerodigestive tract: Normal. Major salivary glands: Normal. Thyroid gland: Normal. Lymph Nodes: No cervical lymphadenopathy by size criteria. Carotid/Parapharyngeal/Retropharyngeal Spaces: Patent extracranial carotid systems and internal jugular veins bilaterally. Otherwise normal. Orbits, Face and Skull Base: Paranasal sinuses, mastoid air cells, and middle ear cavities are clear. Otherwise normal. Imaged intracranial contents: No intracranial mass effect or hydrocephalus. No abnormal intracranial enhancement. Cervical spine and remaining osseous structures: No osteolytic or osteoblastic process. Lung apices: No consolidation or mass. Other: Not applicable. IMPRESSION: No evidence of residual/recurrent disease or pathological cervical chain adenopathy. Transcribe Date/Time: May 16 2025 9:46A Dictated by: HARJINDER KURTZ MD This examination was interpreted and the report reviewed and electronically signed by: HARJINDER KURTZ MD on May 16 2025 9:50AM EST Thank you for allowing us to participate in the care of your patient. Should there be any questions regarding this interpretation, please call [phone]. If you are unable to reach us at the number above, please feel free to contact [facility] at [phone]. ASSESSMENT/ PLAN/ IMPRESSION Elevated troponin-I levels: Patient had symptoms of excessive fatigue, diaphoresis, shortness of breath and lightheadedness with heavy exertional activity during training exercise at [employer] yesterday and was brought to the ED. He had evidence of rhabdomyolysis. Patient denied having symptoms of chest pain. He had significantly elevated troponin-I levels of up to 0.180 which have since trended down. It is likely suggestive of type 2 myocardial infarction related to his episode of near-syncope, sympathetic overstimulation as well as acute renal failures related to rhabdomyolysis. He hasbeen hydrated and his symptoms have since improved. Patient is scheduled for Lexiscan stress Cardiol ite test today to rule out coronary artery disease as etiology. He is also scheduled for an echocardiogram. 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 He completed adjuvant radiotherapy to the right neckon 05/10/21. Patient follows up with Oncology. His condition has been stable. Signed, Dioni Monsalve MD [1] Past Medical History: Diagnosis Date Cancer of neck [2] No past surgical history on file. [3] Social History Socioeconomic History Marital status: Tobacco Use Smoking status: Never Smokeless tobacco: Never Vaping Use Vaping status: Never Used Substance and Sexual Activity Alcohol use: Never Drug use: Never documented in this encounter ED Notes * Milly Rosas RN - 06/11/2025 9:48 PM EDT Pt taken to Unit 1 via wheelchair. Pt declined gown for now as he was extremely cold in the ER. Accompanied by his , she had his belongings. Report given to Gladys.JUDY. * Milly Rosas RN - 06/11/2025 8:21 PM EDT Called Unit 1, room was just cleaned they will call when they have it set up. * Loren Lucio RN - 06/11/2025 6:42 PM EDT Pt vomiting, states he has pain all over. Zofran was given. * Loren Lucio RN - 06/11/2025 5:54 PM EDT Waiting for room to be cleaned before pt can be transfered * Sandra Sales RN - 06/11/2025 5:48 PM EDT Unit 1 room 105, when room is clean, EVS notified * Bubba Urias MD - 06/11/2025 12:34 PM EDT History No chief complaint on file. 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 Upon arrival he is diffusely diaphoretic, minimally responsive, answers yes and no but struggles to follow up commands turn his head. Past Medical History[1] Past Surgical History[2] No family history on file. Social History[3] Review of Systems Physical Exam There were no vitals taken for this visit. Physical Exam Vitals and nursing note reviewed. Constitutional: General: He is not in acute distress. Appearance: Normal appearance. He is normal weight. He is ill-appearing and diaphoretic. Comments: Patient is well-built, diffusely diaphoretic appears unwell, HENT: Head: Normocephalic and atraumatic. Nose: Nose normal. Mouth/Throat: Mouth: Mucous membranes are moist. Pharynx: Oropharynx is clear. Eyes: Extraocular Movements: Extraocular movements intact. Conjunctiva/sclera: Conjunctivae normal. Pupils: Pupils are equal, round, and reactive to light. Cardiovascular: Rate and Rhythm: Normal rate and regular rhythm. Pulses: Normal pulses. Pulmonary: Effort: Pulmonary effort is normal. No respiratory distress. Abdominal: General: Abdomen is flat. There is no distension. Tenderness: There is no abdominal tenderness. There is no guarding. Musculoskeletal: General: No tenderness. Normal range of motion. Cervical back: Normal range of motion and neck supple. Right lower leg: No edema. Left lower leg: No edema. Skin: General: Skin is warm. Capillary Refill: Capillary refill takes less than 2 seconds. Coloration: Skin is not jaundiced or pale. Findings: No bruising or erythema. Neurological: General: No focal deficit present. Mental Status: He is alert and oriented to person, place, and time. Cranial Nerves: No cranial nerve deficit. Sensory: No sensory deficit. Motor: No weakness. Comments: He is very weak and fatigued, has trouble moving his body in all extremities turning his head. He is alert and oriented. ED Course Procedures Medical Decision Making 49-year-old male, presents after over exertion, tachycardic confused upon arrival and they were doing some wrestling so I did order a CT head along with some blood work. Blood work significant for a lactate over 19. Evidence of metabolic acidosis bicarb 5, anion gap 34. Patient's EKG sinus tachycardia at a rate of 117. QTC 471. No evidence of ischemic changes, the only change is T-wave inversion in lead 3. Overall he is ill-appearing. He was given fluid reassessment. I did a CT head due to his altered mental status. Acidosis on the VBG 7.25. CT head negative, on repeat assessment he is more awake but complaining of some back pain and numbness down the left arm. CT angiogram added due to the very high lactate and his complaint. CT angiogram showed no acute abnormality however there was something seen in the sigmoid colon which could be neoplasm versus diverticulitis he will need colonoscopy for follow up with his cancer history. Initial repeat lactate after 1 L fluid downtrending to 9.6. 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 Eventually we had came to decision that I can repeat a metabolic panel and a lactate after 3 L of fluids and see how he is feeling. He feels much better at this time. Repeat BNP significantly improved, anion gap has closed, still has MURPHY. Bicarb improved. Lactate negative now. He continues to feel much better in his acting normally. is at the bedside. Repeat troponin added, uptrending. Spoke to Cardiology recommended admission, aspirin, stress test tomorrow. Thinks we can keep him here, not planning to start heparin at this point. Overall this is some type of exercise induced lactic acidemia with severe stress response elevated troponins, acidosis has resolved, we will continue IV fluids. I did go over the CT results and recommend follow up with his doctor to discuss the thickening of the colon for colonoscopy in the future. Patient agreed with the plan of care, admitted in stable condition. Amount and/or Complexity of Data Reviewed Labs: ordered. Radiology: ordered. ECG/medicine tests: ordered. Risk Prescription drug management. Results for orders placed or performed during the hospital encounter of 06/11/25 BASIC METABOLIC PANEL Result Value Ref Range Sodium 142 136 - 145 mmol/L Potassium 5.1 3.5 - 5.1 mmol/L Chloride 108 (H) 98 - 107 mmol/L Carbon Dioxide 5 (LL) 22 - 29 mmol/L BUN 15 9 - 21 mg/dL Creatinine 1.82 (H) 0.72 - 1.25 mg/dL Glucose 172 (H) 70 - 105 mg/dL Calcium 9.2 8.4 - 10.2 mg/dL Anion Gap 34 mmol/L BUN/CREA Ratio 8 Osmolality (Calc) 304 mOsm/kg Estimated GFR, 49 mL/min/1.73sqM Estimated GFR,Non 40 mL/min/1.73sqM LACTATE, BLOOD Result Value Ref Range Lactic Acid 19.6 (HH) 0.5 - 2.2 mmol/L TROPONIN Result Value Ref Range Troponin I <0.010 <0.033 ng/mL B-TYPE NATRIURETIC PEPTIDE (BRAIN) Result Value Ref Range B-Type Natriuretic Peptide 29 0 - 100 pg/mL TSH Result Value Ref Range TSH, High Sensitivity 7.255 (H) 0.350 - 4.940 uIU/mL CK Result Value Ref Range Creatine Kinase 504 (H) 30 - 200 U/L CBC AND ELECTRONIC DIFF Result Value Ref Range WBC Count 15.0 (H) 4.5 - 11.0 K/uL RBC Count 5.60 Male: 4.2-5.6, Female: 3.8-5.3 M/uL Hemoglobin 16.5 13.1 - 17.2 g/dL Hematocrit 49.2 39.0 - 50.0 % Mean Cell Volume 87.9 80.0 - 99.0 fL Mean Cell Hgb 29.5 Male: 27.0-35.0, Female: 27.0-34.0 pg Mean Cell Hgb Conc 33.5 32.0 - 36.0 g/dL Platelet Count 348 150 - 400 K/uL Mean Platelet Volume 9.4 7.5 - 11.2 fL RBC Distribution 43.1 36.7 - 49.4 fL MANUAL DIFF Result Value Ref Range WBC Count 15.00 K/uL Neutrophil Segmented Manual 62 % Neutrophil Band % Manual 13 % Lymphocyte % Manual 21 % Monocyte % Manual 2 % Eosinophils % Manual 1 % Metamyelocyte % Manual 1 % Abs Segs Manual 9.30 (H) 1.80 - 7.70 K/uL Abs Bands Manual 1.95 (H) 0.00 - 0.70 K/uL Abs Lymph Manual 3.15 1.00 - 4.80 K/uL Abs [place] Manual 0.30 0.20 - 0.40 K/uL Abs Eos Manual 0.15 K\uL Abs [place] Manual 0.15 >=0.00 K/uL Platelet Comments Specimen integrity checked. Platelets Adequate ACETONE, SERUM, KETONES Result Value Ref Range Beta Hydroxybutyrate 0.21 0.02 - 0.27 mmol/L ALCOHOL (ETHANOL),BLOOD Result Value Ref Range Serum Alcohol <10 <10 mg/dL HEPATIC FUNCTION PANEL Result Value Ref Range Albumin 4.3 3.5 - 5.2 g/dL Bilirubin Direct 0.1 0.0 - 0.5 mg/dL Bilirubin, Total 0.6 0.3 - 1.2 mg/dL Alkaline Phosphatase 87 40 - 150 U/L ALT (SGPT) 32 0 - 55 U/L Total Protein 7.5 6.4 - 8.3 g/dL AST 42 (H) <39 U/L MAGNESIUM Result Value Ref Range Magnesium 4.8 (H) 1.6 - 2.6 mg/dL LACTATE, BLOOD Result Value Ref Range Lactic Acid 9.4 (HH) 0.5 - 2.2 mmol/L BASIC METABOLIC PANEL Result Value Ref Range Sodium 139 136 - 145 mmol/L Potassium 3.8 3.5 - 5.1 mmol/L Chloride 111 (H) 98 - 107 mmol/L Carbon Dioxide 18 (L) 22 - 29 mmol/L BUN 17 9 - 21 mg/dL Creatinine 1.63 (H) 0.72 - 1.25 mg/dL Glucose 117 (H) 70 - 105 mg/dL Calcium 8.1 (L) 8.4 - 10.2 mg/dL Anion Gap 14 mmol/L BUN/CREA Ratio 10 Osmolality (Calc) 293 mOsm/kg Estimated GFR, 55 mL/min/1.73sqM Estimated GFR,Non 46 mL/min/1.73sqM LACTATE, BLOOD Result Value Ref Range Lactic Acid 1.6 0.5 - 2.2 mmol/L TROPONIN Result Value Ref Range Troponin I 0.142 (HH) <0.033 ng/mL VENOUS BLOOD GAS Result Value Ref Range pH, Venous 7.25 (L) 7.32 - 7.43 pCO2, Venous 35 (L) 41 - 55 mmHg pO2, Venous 87 No normal range established mmHg HCO3, Venous 15 No normal range established mmol/L O2 Saturation 95 No normal range established % Base Excess -11.1 No normal range established mmol/L URINE DIPSTICK WITH REFLEX MICROSCOPY Result Value Ref Range Color Yellow Yellow Urine Bilirubin Negative Negative Appearance Urine Clear Clear Glucose Urine Negative Negative Ketones Urine Negative Negative Blood Urine Moderate (A) Negative pH Urine 6.0 5.0 - 7.0 pH Units Protein Urine 100 mg/dL (A) Negative mg/dL Urobilinogen Urine 0.2 E.U./dL 0.2 - 1.0 Nitrites Urine Negative Negative Leukocyte Esterase Negative Negative Specific [place] Urine >1.030 (H) 1.000 - 1.030 URINE MICROSCOPIC Result Value Ref Range Squamous Cells 1/hpf = 1+ 1/hpf = 1+, 2-5/hpf = 2+, 0/hpf = 0+, ABSENT WBC Urine 6-9 (A) 0 - 5 /HPF RBC Urine 0-2 0 - 2 /HPF Bacteria, Urine TRACE (A) ABSENT Amorphous, Urine <25% = Slight (A) (none) Fine Granular Casts Rare (A) (none) /LPF Hyaline Casts 1-2 (A) (none) /LPF [1] No past medical history on file. [2] No past surgical history on file. [3] Bubba Urias MD 06/11/25 173 documented in this encounter Miscellaneous Notes * Nursing Notes - Dania Singh RN - 06/12/2025 1:44 PM EDT IV removed per policy. Patient signed AMA forms, ambulated to entrance with all personal belongingsat this time. * Nursing Notes - Dania Singh RN - 06/12/2025 1:40 PM EDT Discharge canceled due to CK results. Dr. Doyle at bedside speaking with patient and spouse at this time. Patient states, I wanna go home . Patient requests to sign out AMA at this time. * Plan of Care - MANSOOR Valderrama - 06/12/2025 12:22 PM EDT Met with patient and regarding discharge planning. will make follow up appointment with PCP, Dr. Bobbi Vigil, once they get home and check work schedules. SW to fax info to PCP office prior to appointment. * Nursing Notes - Gladys Miller RN - 06/12/2025 7:21 AM EDT Report given to Dania KIM, pt is resting in bed, IV is infusing, pt is on room air, call light is within reach. * Nursing Notes - Dania Singh RN - 06/12/2025 7:20 AM EDT Bedside report received from off going nurse, JUDY Graham. Patient resting in bed quietly, breathing even and unlabored. All questions and concerns addressed. IV WNL, Call light in reach. * Plan of Care - Gladys Miller RN - 06/12/2025 4:27 AM EDT Problem: Adult Inpatient Plan of Care Goal: Plan of Care Review Outcome: Progressing Goal: Patient-Specific Goal (Individualized) Outcome: Progressing Goal: Absence of Hospital-Acquired Illness or Injury Outcome: Progressing Goal: Optimal Comfort and Wellbeing Outcome: Progressing Goal: Readiness for Transition of Care Outcome: Progressing Problem: Fall Injury Risk Goal: Absence of Fall and Fall-Related Injury Outcome: Progressing * Nursing Notes - Gladys Miller RN - 06/11/2025 10:47 PM EDT Received critical result from lab, troponin of 0.180, Dr. Staley notified, no new orders placed. * Nursing Notes - Gladys Miller RN - 06/11/2025 9:40 PM EDT Received report from Milly KIM, pt was placed in room 5. documented in this encounter Plan of Treatment NameTypePriorityAssociated DiagnosesOrder ScheduleBASIC METABOLIC PANELLab Routine Lactic acidosis Dehydration MURPHY (acute kidney injury) Expected: 06/19/2025, Expires: 06/12/2026documented as of this encounter Procedures Procedure NamePriorityDate/TimeAssociated DiagnosisCommentsTROPONINRoutine 06/12/2025 12:23 PM EDT NUC MYOCARD PERF STRESS MIBI - REST, STRESS, AND SUNRSQZ1706/12/2025 11:28 AM EDT NM ECHOCARDIOGRAM W/O 8TNmaafpw04/30/2025 10:36 AM EDT CBC,MTHZNICGSAuszcnq89/30/2025 4:02 AM EDT CHEM 7 (LYTES,BUN,CREA,GLUC)Bxxwcjw7906/12/2025 4:02 AM EDT AXVAXWSLKbeimmt02/30/2025 4:02 AM EDT OHNzxiksi82/30/2025 4:02 AM EDT CARDIO-PULMONARY EXERCISE STUDY (SCANNED)06/12/2025MONITOR XITOMBO8306/12/2025 DYARHFYBWeywswv77/29/2025 9:58 PM EDT VENOUS BLOOD YUOIhgdmpb54/29/2025 7:41 PM EDT HRQCONGEBQUP08/29/2025 4:38 PM EDT ZUDvkmhed06/29/2025 4:38 PM EDT LACTATE, AGJMGNvksysu63/29/2025 4:13 PM EDT BASIC METABOLIC DREYMAhrjwsa60/29/2025 4:[address] ANEURYSM STUDY WITH CONTRAST CHEST/ABDOMEN/AINJSIWNMW65/29/2025 2:14 PM EDT URINE DIPSTICK WITH REFLEX PPNDNMUPFQPZBY46/29/2025 1:46 PM EDT URINE PKVTHALKBYYWOQK21/29/2025 1:46 PM EDT URINE WOOSHYRGTXY82/29/2025 1:46 PM EDT LACTATE, PBRZMLBYA91/29/2025 1:31 PM EDT VENOUS BLOOD YGBLOTG3506/11/2025 1:[address] HEAD WITHOUT LOCJEJBRZLCR57/29/2025 1:10 PM EDT EOKFEXF3806/11/2025 12:49 PM EDTMANUAL WZUJLwyaatz28/29/2025 12:41 PM EDT CBC AND ELECTRONIC PTCAYTUO91/29/2025 12:41 PM EDT LACTATE, TMSHYGBTL28/29/2025 12:41 PM EDT ACETONE, SERUM, TRQXJDAEIVF59/29/2025 12:41 PM EDT CBC, EDIF, BIYMFOJOQVKN92/29/2025 12:41 PM EDT EIPOBXFGZMGM41/29/2025 12:41 PM EDT BICHEPO9806/11/2025 12:41 PM EDT B-TYPE NATRIURETIC PEPTIDE (BRAIN)STAT1 12:41 PM EDT ETOGMFPSMVWCB44/29/2025 12:41 PM EDT GNFKTT7006/11/2025 12:41 PM EDT ALCOHOL (ETHANOL),HENSBSUXV46/29/2025 12:41 PM EDT HEPATIC FUNCTION TIKENNDKA83/29/2025 12:41 PM EDT BASIC METABOLIC TTAYGYYUV84/29/2025 12:41 PM EDT documented in this encounter Results * (ABNORMAL) TROPONIN (06/12/2025 12:23 PM EDT)ComponentValueRef RangeTest MethodAnalysis TimePerformed AtPathologist SignatureTroponin I0.051(H)<0.033 ng/mL06/12/2025 12:56 PM EDTCLINICAL LABORATORYCAPITAL DISTRICT PSYCHIATRIC CENTERComment: 0.034-0.110 ??INDETERMINATE >0.120 DIAGNOSTIC Specimen (Source)Anatomical Location / LateralityCollection Method / Volume Collection TimeReceived TimeBloodVenipuncture / Lojsonw4906/12/2025 12:23 PM EDT 06/12/2025 12:26 PM EDT Narrative Authorizing ProviderResult TypeResult StatusAbdal Ramon Doyle MBBSCHEMISTRY ORDERABLESFinal ResultPerforming OrganizationAddressCity/State/ZIP CodePhone Number [facility], [place] [address] * NUC MYOCARD PERF STRESS MIBI - REST, STRESS, AND ECG (06/12/2025 11:28 AM EDT) Anatomical RegionLateralityModalityChestNuclear MedicineSpecimen (Source) Anatomical Location / LateralityCollection Method / VolumeCollection Time Received Time Narrative 06/12/2025 11:11 AM EDT Dioni Monsalve MD 06/12/2025 11:21 AM ??Gated Lexiscan Myocardial Perfusion Scintigraphy Same Day Rest/Stress Procedure Maximo Ramos 1975 49 y.o. male 06/11/2025 12:33 PM No ref. provider found ?? Interpreting Physician: Dioni Monsalve MD Supervising Physician: Dioni Monsalve MD Indication Dehydration [E86.0] Lactic acidosis [E87.20] Elevated troponin [R79.89] Mural thickening of sigmoid colon [K63.9] Baseline Electrocardiogram Sinus rhythm, normal. SPECT Tomography Following the IV injection of 12.8 mCi of IV Cardiolite, TC-99m supine gamma camera imaging was done using 180 degree SPECT technique. ??Imaging was done in standard short axis, vertical and long axis views. ??32.6 mCi of IV Cardiolite was injected immediately after IV Lexiscan injection and SPECT imaging was repeated. ??Gated SPECT imaging was also done per protocol. Lexiscan Stress Test Results 0.4 mg of IV Lexiscan was injected over 10 seconds. ??It was immediately flushed with 10 ml IV normal Saline and immediately afterward IV Cardiolite was re injected. - ??Patient experienced mild shortness of breath after IV Lexiscan infusion ?Which represents a normal physiological response to IV Lexiscan. - ??Normal hemodynamic response was noted. - ??No arrhythmias were noted. - ??No electrocardiographic changes suggestive of ischemia were noted. Impression Negative electrocardiographic Lexiscan stress test for ischemia. Tomographic Results Normal and uniform uptake of Cardiolite is noted in all other wall segments during stress and at rest. ??The left ventricular size is normal. ??Gated SPECT imaging post stress revealed normal wall motion and contractility of all wall segments. ??The calculated ejection fraction is 73% and the calculated EDV is 139 ml on post stress images. TID is in normal range. No prior studies are available for comparison. Conclusion This is a normal study with no evidence of infarct or stress induced ischemia. Authorizing ProviderResult TypeResult StatusBubba SHORT ORDERABLESFinal Result * NM ECHOCARDIOGRAM W/O 3D (06/12/2025 10:36 AM EDT)Anatomical RegionLaterality ModalityUltrasoundSpecimen (Source)Anatomical Location / LateralityCollection Method / VolumeCollection TimeReceived Time06/12/2025 10:07 AM EDT Narrative 06/12/2025 11:08 AM EDT Indication ======== elevated troponin. Conclusion ========= Normal left ventricular cavity size. No regional wall motion abnormalities were noted. Normal left ventricular ejection fraction. Left ventricular EF 60 - 65 %. Normal global longitudinal strain values -20.4 %. Diastolic function is normal. Normal right ventricular size. Normal right ventricular systolic function. There is mild mitral regurgitation and trivial tricuspid regurgitation. Procedure/Study Quality A transthoracic study was performed including 2D, M-mode, spectral, color-flow and Tissue Doppler imaging. View: This was a technically adequate study. Measure ======= M mode TAPSE ?2.7 ? cm [>=1.7] 2D mode IVSd ? 0.8 ? cm ?LVESV (Auto EF A2C) ? 35.1 ?ml ?LAESVI (MODA4C) ?17 ?ml/m? [0.6-1.0] ? LVSV (Auto EF A4C) ?72.8 ?ml ?LAESV (A-L BIP) 38.6 ?ml LVIDd ?5.0 ? cm ?LVSV (Auto EF A2C) ?52.2 ?ml ?LAESVI (MOD A2C) ?15 ?ml/m? [4.2-5.8] ? LVEF (Auto EF A2C) ?60 ?% ? LAESV (MODBIP) 36.2 ?ml LVIDs ?3.4 ? cm ?[52-72] LAESVI (MOD BIP) ?16 ?ml/m? [2.5-4.0] ? LVEF (Auto EF BIP) ?58 ?% ? [16-34] LVPWd ?0.9 ? cm ?[52-72] RAA (s) ? 15.0 ?cm? [0.6-1.0] ? LVEF (MOD BIP) ??64 ?% ? [10.0-18.0] LVRWT ?0.37 ?[52-72] RAA Index (s) ?? 6.74 ?cm?/m? [0.24-0.42] ? RVIDd ? 3.9 ? cm ?LVOT Diam ?2.4 ? cm LVd Mass ? 176 ? g ? RV basal (D1) ?? 3.2 ? cm ?Ao Root Diam ?3.5 ? cm ? [88-224] ?[2.5-4.1] ? Ao Asc Diam ? 3.6 ? cm LVd Mass Index 79 ?g/m?RV mid (D2) ? 2.0 ? cm ?[2.6-3.4] ? [49-115] ?[1.9-3.5] ? Ao Asc Diam Index ? 1.64 ?cm/m? LVEF (Teich) ?? 60 ?% ? RV longit. (D3) 8.2 ? cm ?[1.3-1.7] LVd Mass (ASE) 153 ? g ? [5.9-8.3] ? Ao Asc Diam Index (h) ?? 2.05 ?cm/m ? [88-224] ?LAAs Index (A4C) ?7.1 ? cm?/m? LVd Mass Index (ASE) ?? 68 ?g/m?[7.4-10.4] ? [49-115] ?LAESVI (A-L) ?17 ?ml/m? LVEDV (Auto EF A4C) ?130.5 ?? ml LVEDV (Auto EF A2C) ?87.4 ?ml LVESV (Auto EF A4C) ?57.7 ?ml Doppler MV E Velocity ??0.75 ?m/s ? LVOT mean PG ?2.28 ?mmHg ?AV mean PG ?3.59 ?mmHg MV A Velocity ??0.62 ?m/s ? LVOT VTI ?20.0 ?cm ?AV VTI ?26.6 ?cm MV E / A ?1.22 ?? LVOT SV ??88.0 ?? ml ?JEANETTE (VTI) ?3.3 ?cm? [0.78-1.78] ? LVOT SVI ?39.5 ?ml/m? AVAI (VTI) ?1.5 ? cm?/m? MV Dec. Time ?? 177 ? ms ?LVOT CO ??7.34 ?? l/min ?? JEANETTE (Vmax) ?3.3 ? cm? [143-219] ? LVOT CI ? 3.29 ?l/min/m?AV HR ? 84 ?bpm MV PHT ? 51 ?ms ?AV Vmax ??1.31 ?? m/s ? LV HR ? 83 ?bpm MVA PHT ?4.3 ? cm? Dimensionless Index ? 0.74 ?RAP ?8 ? mmHg MV Dec. [place] ??4.24 ?m/s?AV max PG ? 6.89 ?mmHg ?PV Vmax 1.09 ?m/s LVOT Vmax ?0.98 ?m/s ? AV Vmean ?0.89 ?m/s ? PV max PG ? 4.76 ?mmHg LVOT Vmean ? 0.73 ?m/s LVOT max PG ?3.81 ?mmHg TDI MV E' Sept ? 10.6 ?cm/s ?MV E / E' Lat ?? 6.49 ?MV E / Avg E' ?? 6.76 [>=7.0] MV E' Avg 11.1 cm/s [<=14.0] MV E / E' Sept 7.06 ?TVS' ? 19.4 ?cm/s MV E' Lat 11.6 cm/s [>=9.5] [>=10.0] 2D Strain Left Ventricle RUTHANN GLS (RUTHANN A4C) ?-20. ?% ? GLS (RUTHANN APLAX) -20. ?% ? GLS avg (RUTHANN)?? -20.4 ?? % ? 4 ? 9 [>=-20.0] [>=-20.0] GLS (RUTHANN A2C) ??-19.9 ?? % [>=-20.0] Left Ventricle Normal left ventricular cavity size. Normal cavity size at systole. The left ventricular wall thickness is normal. Normal volume at diastole. Normal volume at systole. The left ventricular mass is normal. Global systolic function: There is normal global left ventricular contractility. Normal left ventricular ejection fraction. Left ventricular EF 60 - 65 %. Normal global longitudinal strain values -20.4 %. Regional systolic function: Wall motion: No regional wall motion abnormalities were noted. Diastolic function: Diastolic function is normal. Right Ventricle Normal right ventricular size. Normal right ventricular systolic function. Interventricular Septum The interventricular septum is intact. Left Atrium ========= Normal sized left atrium. Interatrial Septum Atrial septum appears to be intact. Right Atrium The right atrial size is normal. Aortic Valve ========= The aortic valve is trileaflet and appears structurally normal. There is no evidence of aortic stenosis. No aortic regurgitation. Mitral Valve ========= The mitral valve appears structurally normal. There is no mitral stenosis. Mild regurgitation. Tricuspid Valve The tricuspid valve appears structurally normal. No stenosis of the tricuspid valve. Trace/physiological tricuspid regurgitation. Pulmonic Valve Pulmonic valve appears structurally normal. No pulmonic valve stenosis. No regurgitation. Aorta/Aortic root Dilated. IVC/Hepatic Veins IVC size: IVC size is normal with greater than 50% inspiratory collapse, suggesting RA pressure ~ 3mmHg. Pericardium There is no pericardial effusion. Procedure Note Dioni Monsalve MD - 06/12/2025 Indication ======== elevated troponin. Conclusion ========= Normal left ventricular cavity size. No regional wall motion abnormalitieswere noted. Normal left ventricular ejection fraction. Left ventricular EF 60 - 65%. Normal global longitudinal strain values -20.4 %. Diastolic function is normal. Normal right ventricular size. Normal right ventricular systolicfunction. There is mild mitral regurgitation and trivial tricuspid regurgitation. Procedure/Study Quality A transthoracic study was performed including 2D, M-mode, spectral,color-flow and Tissue Doppler imaging. View: This was a technicallyadequate study. Measure ======= M mode TAPSE 2.7 cm [>=1.7] 2D mode IVSd 0.8 cm LVESV (Auto EF A2C) 35.1 mlLAESVI (MOD A4C) 17 ml/m? [0.6-1.0] LVSV (Auto EF A4C) 72.8 mlLAESV (A-L BIP) 38.6 ml LVIDd 5.0 cm LVSV (Auto EF A2C) 52.2 mlLAESVI (MOD A2C) 15 ml/m? [4.2-5.8] LVEF (Auto EF A2C) 60 %LAESV (MOD BIP) 36.2 ml LVIDs 3.4 cm [52-72] LAESVI (MOD BIP) 16ml/m? [2.5-4.0] LVEF (Auto EF BIP) 58 %[16-34] LVPWd 0.9 cm [52-72] RAA (s) 15.0cm? [0.6-1.0] LVEF (MOD BIP) 64 %[10.0-18.0] LVRWT 0.37 [52-72] RAA Index (s) 6.74cm?/m? [0.24-0.42] RVIDd 3.9 cm LVOT Diam2.4 cm LVd Mass 176 g RV basal (D1) 3.2 cm Ao RootDiam 3.5 cm [88-224] [2.5-4.1] Ao Asc Diam3.6 cm LVd Mass Index 79 g/m? RV mid (D2) 2.0 cm[2.6-3.4] [49-115] [1.9-3.5] Ao Asc DiamIndex 1.64 cm/m? LVEF (Teich) 60 % RV longit. (D3) 8.2 cm[1.3-1.7] LVd Mass (ASE) 153 g [5.9-8.3] Ao Asc Diam Index(h) 2.05 cm/m [88-224] LAAs Index (A4C) 7.1 cm?/m? LVd Mass Index (ASE) 68 g/m? [7.4-10.4] [49-115] LAESVI (A-L) 17 ml/m? LVEDV (Auto EF A4C) 130.5 ml LVEDV (Auto EF A2C) 87.4 ml LVESV (Auto EF A4C) 57.7 ml Doppler MV E Velocity 0.75 m/s LVOT mean PG 2.28 mmHg AV mean PG3.59 mmHg MV A Velocity 0.62 m/s LVOT VTI 20.0 cm AV VTI26.6 cm MV E / A 1.22 LVOT SV 88.0 ml JEANETTE (VTI) 3.3cm? [0.78-1.78] LVOT SVI 39.5 ml/m? AVAI (VTI)1.5 cm?/m? MV Dec. Time 177 ms LVOT CO 7.34 l/min JEANETTE (Vmax) 3.3cm? [143-219] LVOT CI 3.29 l/min/m? AVHR 84 bpm MV PHT 51 ms AV Vmax 1.31 m/s LV HR 83bpm MVA PHT 4.3 cm? Dimensionless Index 0.74 RAP8 mmHg MV Dec. [place] 4.24 m/s? AV max PG 6.89 mmHg PV Vmax1.09 m/s LVOT Vmax 0.98 m/s AV Vmean 0.89 m/s PV max PG4.76 mmHg LVOT Vmean 0.73 m/s LVOT max PG 3.81 mmHg TDI MV E' Sept 10.6 cm/s MV E / E' Lat 6.49 MV E / Avg E'6.76 [>=7.0] MV E' Avg 11.1 cm/s [<=14.0] MV E / E' Sept 7.06 TVS' 19.4 cm/s MV E' Lat 11.6 cm/s [>=9.5] [>=10.0] 2D Strain Left Ventricle RUTHANN GLS (RUTHANN A4C) -20. % GLS (RUTHANN APLAX) -20. % GLSavg (RUTHANN) -20.4 % 4 9 [>=-20.0] [>=-20.0] GLS (RUTHANN A2C) -19.9 % [>=-20.0] Left Ventricle Normal left ventricular cavity size. Normal cavity size at systole. Theleft ventricular wall thickness is normal. Normal volume at diastole.Normal volume at systole. The left ventricular mass is normal. Global systolic function: There is normal global left ventricularcontractility. Normal left ventricular ejection fraction. Left ventricularEF 60 - 65 %. Normal global longitudinal strain values -20.4 %. Regional systolic function: Wall motion: No regional wall motionabnormalities were noted. Diastolic function: Diastolic function is normal. Right Ventricle Normal right ventricular size. Normal right ventricular systolic function. Interventricular Septum The interventricular septum is intact. Left Atrium ========= Normal sized left atrium. Interatrial Septum Atrial septum appears to be intact. Right Atrium The right atrial size is normal. Aortic Valve ========= The aortic valve is trileaflet and appears structurally normal. There isno evidence of aortic stenosis. No aortic regurgitation. Mitral Valve ========= The mitral valve appears structurally normal. There is no mitral stenosis.Mild regurgitation. Tricuspid Valve The tricuspid valve appears structurally normal. No stenosis of thetricuspid valve. Trace/physiological tricuspid regurgitation. Pulmonic Valve Pulmonic valve appears structurally normal. No pulmonic valve stenosis. No regurgitation. Aorta/Aortic root Dilated. IVC/Hepatic Veins IVC size: IVC size is normal with greater than 50% inspiratory collapse, suggesting RA pressure ~ 3 mmHg. Pericardium There is no pericardial effusion. Authorizing ProviderResult TypeResult StatusBubba BUITRAGO ORDERABLESEdited Result - Final * (ABNORMAL) CK (06/12/2025 4:02 AM EDT)ComponentValueRef RangeTest Method Analysis TimePerformed AtPathologist SignatureCreatine Kinase8,001(H)30 - 200 U/L1 1:18 PM EDTCLINICAL LABORATORY, [facility] HEALTHSpecimen (Source)Anatomical Location / LateralityCollection Method / VolumeCollection TimeReceived Time BloodVenipuncture / Klmbxxx3606/12/2025 4:02 AM EDT1 12:49 PM EDT Narrative Authorizing ProviderResult TypeResult StatusVinod Doyle MBBSCHEMISTRY ORDERABLESFinal ResultPerforming OrganizationAddressCity/State/ZIP CodePhone Number CLINICAL LABORATORY, [address] [address] * (ABNORMAL) TROPONIN (06/12/2025 4:02 AM EDT)ComponentValueRef RangeTest Method Analysis TimePerformed AtPathologist SignatureTroponin I0.111(H)<0.033 ng/mL 06/12/2025 4:54 AM EDTCLINICAL LABORATORY, [facility] HEALTHComment: 0.034-0.110 ??INDETERMINATE >0.120 DIAGNOSTIC Specimen (Source)Anatomical Location / LateralityCollection Method / Volume Collection TimeReceived TimeBloodVenipuncture / Lktfixd0806/12/2025 4:02 AM EDT 06/12/2025 4:11 AM EDT Narrative Authorizing ProviderResult TypeResult StatusVinod Doyle MBBSCHEMISTRY ORDERABLESFinal ResultPerforming OrganizationAddressCity/State/ZIP CodePhone Number CLINICAL LABORATORY, [address] [address] * (ABNORMAL) CHEM 7 (LYTES,BUN,CREA,GLUC) (06/12/2025 4:02 AM EDT)ComponentValue Ref RangeTest MethodAnalysis TimePerformed AtPathologist TlkgbqridBDB392 - 21 mg/dL06/12/2025 4:32 AM EDTCLINICAL LABORATORY, NQFOntumk651294 - 145 mmol/L 06/12/2025 4:32 AM EDTCLINICAL LABORATORY, MCHPotassium4.23.5 - 5.1 mmol/L 06/12/2025 4:32 AM EDTCLINICAL LABORATORY, CTSZutpazbb087(H)98 - 107 mmol/L 06/12/2025 4:32 AM EDTCLINICAL LABORATORY, MCHCarbon Ujqusyh52(L)22 - 29 mmol/L1 4:32 AM EDTCLINICAL LABORATORY, YGWGhqddih4372 - 105 mg/dL 06/12/2025 4:32 AM EDTCLINICAL LABORATORY, MCHCreatinine1.60(H)0.72 - 1.25 mg/dL06/12/2025 4:32 AM EDTCLINICAL LABORATORY, MCHAnion Chu74bybt/L1 4:32 AM EDTCLINICAL LABORATORY, MCHBUN/CREA Gtzju5232/30/2025 4:32 AM EDT CLINICAL LABORATORY, MCHOsmolality (Calc)300mOsm/kg06/12/2025 4:32 AM EDT CLINICAL LABORATORY, MCHEstimated GFR, Idvzcmqb93vU/min/1.73sqM 06/12/2025 4:32 AM EDTCLINICAL LABORATORY, MCHEstimated GFR,Non Qpahvvmx10uM/min/1.43xlC01 4:32 AM EDTCLINICAL LABORATORY, MCHSpecimen (Source)Anatomical Location / LateralityCollection Method / VolumeCollection TimeReceived TimeBloodVenipuncture / Bygfjig2806/12/2025 4:02 AM EDT1 4:10 AM EDT Narrative Authorizing ProviderResult TypeResult StatusNico Adonay MDCHEMISTRY ORDERABLES Final ResultPerforming OrganizationAddressCity/State/ZIP CodePhone Number CLINICAL LABORATORY, [place] [address] [place] [address] * CBC,PLATELETS (06/12/2025 4:02 AM EDT)ComponentValueRef RangeTest Method Analysis TimePerformed AtPathologist SignatureWBC Count10.44.5 - 11.0 K/uL 06/12/2025 4:13 AM EDTCLINICAL LABORATORY, MCHRBC Count4.99Male: 4.2-5.6, Female: 3.8-5.3 M/uL06/12/2025 4:13 AM EDTCLINICAL LABORATORY, MCHHemoglobin 14.413.1 - 17.2 g/dL06/12/2025 4:13 AM EDTCLINICAL LABORATORY, MCHHematocrit 42.839.0 - 50.0 %06/12/2025 4:13 AM EDTCLINICAL LABORATORY, MCHMean Cell Mqiixk24.880.0 - 99.0 fL06/12/2025 4:13 AM EDTCLINICAL LABORATORY, MCHMean Cell Hgb28.9Male: 27.0-35.0, Female: 27.0-34.0 pg06/12/2025 4:13 AM EDT CLINICAL LABORATORY, MCHMean Cell Hgb Conc33.632.0 - 36.0 g/dL06/12/2025 4:13 AM EDTCLINICAL LABORATORY, MCHRBC Vzmdqtobirnr33/30/2025 4:13 AM EDTCLINICAL LABORATORY, MCHPlatelet Vbswf402885 - 400 K/uL06/12/2025 4:13 AM EDTCLINICAL LABORATORY, MCHMean Platelet Volume8.67.5 - 11.2 fL06/12/2025 4:13 AM EDT [facility], [facility]Specimen (Source)Anatomical Location / Laterality Collection Method / VolumeCollection TimeReceived TimeBloodVenipuncture / Loptjjd8406/12/2025 4:02 AM EDT1 4:10 AM EDT Narrative Authorizing ProviderResult TypeResult StatusBubba Urias MDHEMATOLOGY ORDERABLES Final ResultPerforming OrganizationAddressCity/State/ZIP CodePhone Number CLINICAL LABORATORY, [facility] [address] [place] [address] * CARDIO-PULMONARY EXERCISE STUDY (SCANNED) (06/12/2025)Specimen (Source) Anatomical Location / LateralityCollection Method / VolumeCollection Time Received Time06/12/2025 Narrative Authorizing ProviderResult TypeResult StatusOther Other OTPFT ORDERABLESFinal Result * MONITOR REPORTS (06/12/2025)Specimen (Source)Anatomical Location / Laterality Collection Method / VolumeCollection TimeReceived Time06/12/2025 Narrative Authorizing ProviderResult TypeResult StatusOther Other OTECG ORDERABLESFinal Result * (ABNORMAL) TROPONIN (06/11/2025 9:58 PM EDT)ComponentValueRef RangeTest Method Analysis TimePerformed AtPathologist SignatureTroponin I0.180(HH)<0.033 ng/mL 06/11/2025 10:45 PM EDTCLINICAL LABORATORY, MCHComment: 0.034-0.110 ??INDETERMINATE >0.120 DIAGNOSTIC Specimen (Source)Anatomical Location / LateralityCollection Method / Volume Collection TimeReceived TimeBloodVenipuncture / Krqbsot1606/11/2025 9:58 PM EDT 06/11/2025 10:00 PM EDT Narrative Authorizing ProviderResult TypeResult StatusNico Adonay MDCHEMISTRY ORDERABLES Final ResultPerforming OrganizationAddressCity/State/ZIP CodePhone Number CLINICAL LABORATORY, [address] [address] * (ABNORMAL) VENOUS BLOOD GAS (06/11/2025 7:41 PM EDT)ComponentValueRef Range Test MethodAnalysis TimePerformed AtPathologist SignaturepH, Venous7.27(L)7.32 - 7.431 7:48 PM EDTCLINICAL LABORATORY, MCHpCO2, Gvqsyg4575 - 55 mmHg06/11/2025 7:48 PM EDTCLINICAL LABORATORY, MCHpO2, Riwrav78Ix normal range established mmHg06/11/2025 7:48 PM EDTCLINICAL LABORATORY, MCHHCO3, Ymcmly48 No normal range established mmol/L1 7:48 PM EDTCLINICAL LABORATORY, MCHO2 Lulndeakhx70Eu normal range established %06/11/2025 7:48 PM EDTCLINICAL LABORATORY, MCHBase Excess-6.3No normal range established mmol/L1 7:48 PM EDTCLINICAL LABORATORY, MCHSpecimen (Source)Anatomical Location / LateralityCollection Method / VolumeCollection TimeReceived TimeBloodVENOUS / UnknownVenipuncture / Iijduci4906/11/2025 7:41 PM EDT1 7:44 PM EDT Narrative Authorizing ProviderResult TypeResult StatusBubba WALTER GASFinal Result Performing OrganizationAddressCity/State/ZIP CodePhone Number CLINICAL LABORATORY, [place] [phone] * (ABNORMAL) CK (06/11/2025 4:38 PM EDT)ComponentValueRef RangeTest Method Analysis TimePerformed AtPathologist SignatureCreatine Kinase3,371(H)30 - 200 U/L1 1:30 PM EDTCLINICAL LABORATORYCAPITAL DISTRICT [facility]ERSpecchi [facility] [place] (Source)Anatomical Location / LateralityCollection Method / VolumeCollection TimeReceived Time BloodVenipuncture / Wxbbhpq2406/11/2025 4:38 PM EDT1 12:49 PM EDT Narrative Authorizing ProviderResult TypeResult StatusVinod Doyle MBBSCHEMISTRY ORDERABLESFinal ResultPerforming OrganizationAddressCity/State/ZIP CodePhone Number CLINICAL LABORATORY, [place] [phone] * (ABNORMAL) TROPONIN (06/11/2025 4:38 PM EDT)ComponentValueRef RangeTest Method Analysis TimePerformed AtPathologist SignatureTroponin I0.142(HH)<0.033 ng/mL 06/11/2025 5:14 PM EDTCLINICAL LABORATORY, [facility] HEALTHComment: 0.034-0.110 ??INDETERMINATE >0.120 DIAGNOSTIC Specimen (Source)Anatomical Location / LateralityCollection Method / Volume Collection TimeReceived TimeBloodVenipuncture / Vqdfhrl1406/11/2025 4:38 PM EDT 06/11/2025 4:38 PM EDT Narrative Authorizing ProviderResult TypeResult StatusBubba Urias MDCHEMISTRY ORDERABLES Final ResultPerforming OrganizationAddressCity/State/ZIP CodePhone Number CLINICAL LABORATORY, [place] [phone] * LACTATE, BLOOD (06/11/2025 4:13 PM EDT)ComponentValueRef RangeTest Method Analysis TimePerformed AtPathologist SignatureLactic Acid1.60.5 - 2.2 mmol/L 06/11/2025 4:35 PM EDTCLINICAL LABORATORY, MCHSpecimen (Source)Anatomical Location / LateralityCollection Method / VolumeCollection TimeReceived Time BloodVenipuncture / Sxnwmkb6906/11/2025 4:13 PM EDT1 4:16 PM EDT Narrative Authorizing ProviderResult TypeResult StatusNico Adonay MDCHEMISTRY ORDERABLES Final ResultPerforming OrganizationAddressCity/State/ZIP CodePhone Number CLINICAL LABORATORY, [place] [address] [place] [address] * (ABNORMAL) BASIC METABOLIC PANEL (06/11/2025 4:13 PM EDT)ComponentValueRef RangeTest MethodAnalysis TimePerformed AtPathologist HxifpimacFuzunz978395 - 145 mmol/L1 4:44 PM EDTCLINICAL LABORATORY, MCHPotassium3.83.5 - 5.1 mmol/L1 4:44 PM EDTCLINICAL LABORATORY, MCHComment: Specimen integrity checked. Repeated and verified Mawtkjou383(H)98 - 107 mmol/L1 4:44 PM EDTCLINICAL LABORATORY, MCH Carbon Tvoqrcq36(L)22 - 29 mmol/L1 4:44 PM EDTCLINICAL LABORATORY, MCH HEY589 - 21 mg/dL06/11/2025 4:44 PM EDTCLINICAL LABORATORY, MCHCreatinine1.63(H) 0.72 - 1.25 mg/dL06/11/2025 4:44 PM EDTCLINICAL LABORATORY, PCOErrqhen807(H)70 - 105 mg/dL06/11/2025 4:44 PM EDTCLINICAL LABORATORY, MCHCalcium8.1(L)8.4 - 10.2 mg/dL06/11/2025 4:44 PM EDTCLINICAL LABORATORY, MCHAnion Mir19gdyr/L1 4:44 PM EDTCLINICAL LABORATORY, MCHBUN/CREA Cgtqe4156/29/2025 4:44 PM EDT CLINICAL LABORATORY, MCHOsmolality (Calc)293mOsm/kg06/11/2025 4:44 PM EDT CLINICAL LABORATORY, MCHEstimated GFR, Nbvejhuw05hL/min/1.73sqM 06/11/2025 4:44 PM EDTCLINICAL LABORATORY, [facility]OLIC HEALTHEstimated GFR,Non 46mL/min/1.83eyV61 4:44 PM EDTCLINICAL LABORATORY, [facility] HEALTHSpecimen (Source) Anatomical Location / LateralityCollection Method / VolumeCollection Time Received TimeBloodVenipuncture / Udnncui9306/11/2025 4:13 PM EDT1 4:16 PM EDT Narrative Authorizing ProviderResult TypeResult StatusNico Adonay MDCHEMISTRY ORDERABLES Final ResultPerforming OrganizationAddressCity/State/ZIP CodePhone Number CLINICAL LABORATORY, [place] [address] [place] [address] * CT ANEURYSM STUDY WITH CONTRAST CHEST/ABDOMEN/PELVIS (06/11/2025 2:14 PM EDT) Anatomical RegionLateralityModalityChest, Abdomen, Pelvis, vascularComputed TomographySpecimen (Source)Anatomical Location / LateralityCollection Method / VolumeCollection TimeReceived Time06/11/2025 2:46 PM EDT Impressions 06/11/2025 2:52 PM EDT IMPRESSION: 1. ??Normal aorta 2. ??Negative for pulmonary embolism 3. ??Clear lungs 4. ??Small hiatal hernia with fluid in the esophagus suggesting gastroesophageal reflux and/or esophageal dysmotility 5. ??Moderate amount of fluid in the stomach 6. ??1 cm segment of abnormal proximal sigmoid colon. Differential diagnosis includes mild diverticulitis, and colonic neoplasm 7. ??Normal appendix Narrative 06/11/2025 2:52 PM EDT EXAM: [facility] CTA CHEST, CTA ABDOMEN, CTA PELVIS WITH AND WITHOUT CONTRAST, 06/11/2025 14:14 PM CLINICAL INDICATIONS: Dizziness with near syncope, with weakness, chest soreness, lactic acidosis, ams COMPARISON: No prior studies available for comparison. FINDINGS: CTA CHEST Thoracic aorta is normal in caliber and there is no dissection. Pulmonary arteries are normal. No pulmonary embolism. Heart size is normal. No mediastinal, hilar, or axillary lymphadenopathy. Thyroid gland is normal in size and density. The lungs are clear. No compression fracture in the thoracic spine. Sternum is normal. Small hiatal hernia. There is fluid in the esophagus suggesting gastroesophageal reflux and/or esophageal dysmotility. CTA ABDOMEN The abdominal aorta is normal in caliber, and there is no dissection. Liver, spleen, pancreas, adrenal glands, and kidneys are normal. Gallbladder is surgically absent. No ductal dilatation. Normal appendix. No intra-abdominal free air or free fluid. No abnormally dilated loops of bowel. Moderate amount of fluid in the stomach. Gastric wall is not abnormally thickened. Anterior abdominal wall is intact. No compression fracture in the lumbar spine. CTA PELVIS The iliac arterial system is normal. Bladder is normal. Prostate and seminal vesicles are normal in size. Scattered diverticula in the descending colon and sigmoid. There is mild thickening of the wall of the proximal sigmoid colon, with enhancement on image #180 of series 3 and 9. Differential diagnosis includes mild diverticulitis, and colonic neoplasm. No extraluminal abscess. No pelvic or inguinal lymphadenopathy. Pelvic bones and hips are normal. Procedure Note Roosevelt Madrigal MD - 06/11/2025 EXAM: [facility] CTA CHEST, CTA ABDOMEN, CTA PELVIS WITH AND WITHOUT CONTRAST, 06/11/2025 14:14 PM CLINICAL INDICATIONS: Dizziness with near syncope, with weakness, chest soreness, lactic acidosis, ams COMPARISON: No prior studies available for comparison. FINDINGS: CTA CHEST Thoracic aorta is normal in caliber and there is no dissection. Pulmonary arteries are normal. No pulmonary embolism. Heart size is normal. No mediastinal, hilar, or axillarylymphadenopathy. Thyroid gland is normal in size and density. The lungs are clear. No compression fracture in the thoracic spine. Sternum is normal. Small hiatal hernia. There is fluid in the esophagus suggesting gastroesophageal reflux and/or esophageal dysmotility. CTA ABDOMEN The abdominal aorta is normal in caliber, and there is no dissection. Liver, spleen, pancreas, adrenal glands, and kidneys are normal.Gallbladder is surgically absent. No ductal dilatation. Normal appendix. No intra-abdominal free air or free fluid. No abnormally dilated loopsof bowel. Moderate amount of fluid in the stomach. Gastric wall is notabnormally thickened. Anterior abdominal wall is intact. No compression fracture inthe lumbar spine. CTA PELVIS The iliac arterial system is normal. Bladder is normal. Prostate and seminal vesicles are normal in size. Scattered diverticula in the descending colon and sigmoid. There is mild thickening of the wall of the proximal sigmoid colon, with enhancementon image #180 of series 3 and 9. Differential diagnosis includes mild diverticulitis, and colonic neoplasm. No extraluminal abscess. No pelvic or inguinal lymphadenopathy. Pelvic bones and hips are normal. IMPRESSION IMPRESSION: 1. Normal aorta 2. Negative for pulmonary embolism 3. Clear lungs 4. Small hiatal hernia with fluid in the esophagus suggesting gastroesophageal reflux and/or esophageal dysmotility 5. Moderate amount of fluid in the stomach 6. 1 cm segment of abnormal proximal sigmoid colon. Differentialdiagnosis includes mild diverticulitis, and colonic neoplasm 7. Normal appendix Authorizing ProviderResult TypeResult StatusNico Adonay MDCT ORDERABLESFinal Result * URINE CULTURE (06/11/2025 1:46 PM EDT)ComponentValueRef RangeTest Method Analysis TimePerformed AtPathologist SignatureCulture, UrineMixed genital milton isolated. These superficial bacteria are not indicative of a urinary tract infection. No further organism identification is warranted on this specimen.06/13/2025 9:34 AM Lexy JOVIEComment: If clinically indicated, recollect clean-catch, mid-stream urine and transfer immediately to Urine Culture Transport Tube. ?? THIS TEST WAS PERFORMED AT: [facility] [address] ??[place] ??[phone] ANASTASIA LUBIN M.D. CbhunyFETBS61/31/2025 9:34 AM Lexy JOIVESource:URINE 06/13/2025 9:34 AM Lexy JOVIESpecimen (Source)Anatomical Location / LateralityCollection Method / VolumeCollection TimeReceived TimeUrine 06/11/2025 1:46 PM EDT1 2:15 PM EDT Narrative Authorizing ProviderResult TypeResult StatusNico Adonay MDMICROBIOLOGY - GENERAL ORDERABLESFinal ResultPerforming OrganizationAddressCity/State/ZIP CodePhone Number [employer] [address]EE [address]NA[address] [place] [address] * (ABNORMAL) URINE MICROSCOPIC (06/11/2025 1:46 PM EDT)ComponentValueRef Range Test MethodAnalysis TimePerformed AtPathologist SignatureSquamous Cells1/hpf = 1+1/hpf = 1+, 2-5/hpf = 2+, 0/hpf = 0+, RRTSBW1506/11/2025 2:15 PM EDTCLINICAL LABORATORY, [facility] HEALTHWBC Urine6-9(A)0 - 5 /HPF06/11/2025 2:15 PM EDTCLINICAL LABORATORY, MCHRBC Urine0-20 - 2 /HPF06/11/2025 2:15 PM EDTCLINICAL LABORATORY, [facility] HEALTHBacteria, UrineTRACE(A)BQIRMK3006/11/2025 2:15 PM EDTCLINICAL LABORATORY, [facility] HEALTHAmorphous, Urine<25% = Slight(A)(none)06/11/2025 2:15 PM EDT [facility] LAB[facility], [facility]ALTHFine Granular CastsRare(A)(none) /LP06/11/2025 2:15 PM EDTCLINICAL LABORATORY, [facility] HEALTHHyaline Casts1-2(A)(none) /LP06/11/2025 2:15 PM EDTCLINICAL LABORATORY, [facility] HEALTHSpecimen (Source)Anatomical Location / Laterality Collection Method / VolumeCollection TimeReceived QpglCvmau77/29/2025 1:46 PM EDT1 1:46 PM EDT Narrative Authorizing ProviderResult TypeResult StatusNicchristy Urias MDBODY FLUIDS & STOOLS ORDERABLESFinal ResultPerforming OrganizationAddressCity/State/ZIP CodePhone Number CLINICAL LABORATORY, [address] [address] * (ABNORMAL) URINE DIPSTICK WITH REFLEX MICROSCOPY (06/11/2025 1:46 PM EDT) ComponentValueRef RangeTest MethodAnalysis TimePerformed AtPathologist WylkzwdlmRdldlBbkvznTlspcg14/29/2025 2:03 PM EDTCLINICAL LABORATORY, [facility] HEALTHUrine ZuamwqjzuGhcwhkioBpxxnggs93/29/2025 2:03 PM EDTCLINICAL LABORATORY, [facility] Appearance TrgttRsrlmPsrcq76/29/2025 2:03 PM EDTCLINICAL LABORATORY, [facility] Glucose FmsnaWtjxldcyJrzikuye74/29/2025 2:03 PM EDTCLINICAL LABORATORY, [facility] Ketones JwiagVxbpndebGbrfzlwt26/29/2025 2:03 PM EDTCLINICAL LABORATORY, [facility] Blood UrineModerate(A)Dtnhvxlu62/29/2025 2:03 PM EDTCLINICAL LABORATORY, [facility] HEALTHpH Urine6.05.0 - 7.0 pH Units06/11/2025 2:03 PM EDTCLINICAL LABORATORY, [facility] Protein Jvxxl234 mg/dL(A)Negative mg/dL06/11/2025 2:03 PM EDTCLINICAL LABORATORY, C[facility]OLIC HEALTHUrobilinogen Urine0.2 E.U./dL0.2 - 1.010 2:03 PM EDT [facility] LAB[facility], [facility]ALTHNitrites ExcdwQblhlvadEmxpflsv91/29/2025 2:03 PM EDT [facility], [facility]ALTHLeukocyte FvfyfmliZoouyhngMtgmosxl15/29/2025 2:03 PM EDTCLINICAL LABORATORY, [facility] HEALTHSpecific [place] Urine>1.030(H)1.000 - 1.030 06/11/2025 2:03 PM EDTCLINICAL LABORATORY, [facility] HEALTHSpecimen (Source)Anatomical Location / LateralityCollection Method / VolumeCollection TimeReceived Time Urine06/11/2025 1:46 PM EDT1 1:46 PM EDT Narrative Authorizing ProviderResult TypeResult StatusBubba Urias MDBODY FLUIDS & STOOLS ORDERABLESFinal ResultPerforming OrganizationAddressCity/State/ZIP CodePhone Number CLINICAL LABORATORY, [address] [address] * (ABNORMAL) LACTATE, BLOOD (06/11/2025 1:31 PM EDT)ComponentValueRef RangeTest MethodAnalysis TimePerformed AtPathologist SignatureLactic Acid9.4(HH)0.5 - 2.2 mmol/L1 2:21 PM EDTCLINICAL LABORATORY, [facility]ALTHComment:Lactate results >/= 2.0 mmol/L should be followed up with a measurement 2 hours later for patients with suspicion of sepsis.Specimen (Source)Anatomical Location / LateralityCollection Method / VolumeCollection TimeReceived TimeBlood Venipuncture / Hbhskzd5206/11/2025 1:31 PM EDT1 2:02 PM EDT Narrative Authorizing ProviderResult TypeResult StatusBubba Urias MDCHEMISTRY ORDERABLES Final ResultPerforming OrganizationAddressCity/State/ZIP CodePhone Number CLINICAL LABORATORY, [address] [address] * (ABNORMAL) VENOUS BLOOD GAS (06/11/2025 1:31 PM EDT)ComponentValueRef Range Test MethodAnalysis TimePerformed AtPathologist SignaturepH, Venous7.25(L)7.32 - 7.431 1:52 PM EDTCLINICAL LABORATORY, MCHpCO2, Inobae92(L)41 - 55 mmHg06/11/2025 1:52 PM EDTCLINICAL LABORATORY, MCHpO2, Klsvqu79Gr normal range established mmHg06/11/2025 1:52 PM EDTCLINICAL LABORATORY, MCHHCO3, Gethuc96 No normal range established mmol/L1 1:52 PM EDTCLINICAL LABORATORY, MCHO2 Wakcyjsjff61Et normal range established %06/11/2025 1:52 PM EDTCLINICAL LABORATORY, MCHBase Excess-11.1No normal range established mmol/L1 1:52 PM EDTCLINICAL LABORATORY, MCHSpecimen (Source)Anatomical Location / LateralityCollection Method / VolumeCollection TimeReceived TimeBloodVENOUS / UnknownVenipuncture / Dpjpdoe6406/11/2025 1:31 PM EDT1 1:45 PM EDT Narrative Authorizing ProviderResult TypeResult StatusNico Adonay GIMENEZBLFLORENCIO GASFinal Result Performing OrganizationAddressCity/State/ZIP CodePhone Number CLINICAL LABORATORY, [place] [address] * CT HEAD WITHOUT CONTRAST (06/11/2025 1:10 PM EDT)Anatomical RegionLaterality ModalityHeadComputed TomographySpecimen (Source)Anatomical Location / LateralityCollection Method / VolumeCollection TimeReceived Time06/11/2025 1:13 PM EDT Impressions 06/11/2025 1:14 PM EDT IMPRESSION: 1. ??Normal brain 2. ??Ethmoid sinusitis Narrative 06/11/2025 1:14 PM EDT EXAM: [facility] CT HEAD WITHOUT CONTRAST, 06/11/2025 13:10 PM CLINICAL INDICATIONS: Near syncope. Nonsmoker, ams ,possible head inj? COMPARISON: No prior studies available for comparison. FINDINGS: No intracranial hemorrhage. No midline shift, or mass effect. Both cerebral hemispheres are normal. Basal ganglia, brainstem, and cerebellum are normal. Orbits are normal. Moderate amount of mucosal thickening in the ethmoid air cells. The other sinuses are clear. Middle ear and mastoid air cells are clear bilaterally. Skull is normal. Procedure Note Roosevelt Madrigal MD - 06/11/2025 EXAM: [facility] CT HEAD WITHOUT CONTRAST, 06/11/2025 13:10 PM CLINICAL INDICATIONS: Near syncope. Nonsmoker, ams ,possible head inj? COMPARISON: No prior studies available for comparison. FINDINGS: No intracranial hemorrhage. No midline shift, or mass effect. Both cerebral hemispheres are normal. Basal ganglia, brainstem, andcerebellum are normal. Orbits are normal. Moderate amount of mucosal thickening in the ethmoidair cells. The other sinuses are clear. Middle ear and mastoid air cells areclear bilaterally. Skull is normal. IMPRESSION IMPRESSION: 1. Normal brain 2. Ethmoid sinusitis Authorizing ProviderResult TypeResult Sammie Urias MDCT ORDERABLESFinal Result * ECG (06/11/2025 12:49 PM EDT)Specimen (Source)Anatomical Location / Laterality Collection Method / VolumeCollection TimeReceived Time06/11/2025 12:49 PM EDT 06/11/2025 1:59 PM EDT Narrative Authorizing ProviderResult TypeResult Sammie Urias MDECG ORDERABLESFinal ResultPerforming OrganizationAddressCity/State/ZIP CodePhone Number RADIOLOGY * (ABNORMAL) MAGNESIUM (06/11/2025 12:41 PM EDT)ComponentValueRef RangeTest MethodAnalysis TimePerformed AtPathologist SignatureMagnesium4.8(H)1.6 - 2.6 mg/dL06/11/2025 1:52 PM EDTCLINICAL LABORATORY, [facility]ALTHSpeclevine children's hospitaln (Source)Anatomical Location / LateralityCollection Method / VolumeCollection TimeReceived Time BloodVenipuncture / Gdaeuit5506/11/2025 12:41 PM EDT1 12:47 PM EDT Narrative Authorizing ProviderResult TypeResult StatusNico Adonay MDCHEMISTRY ORDERABLES Final ResultPerforming OrganizationAddressCity/State/ZIP CodePhone Number CLINICAL LABORATORY, [address] [address] * (ABNORMAL) HEPATIC FUNCTION PANEL (06/11/2025 12:41 PM EDT)ComponentValueRef RangeTest MethodAnalysis TimePerformed AtPathologist SignatureAlbumin4.33.5 - 5.2 g/dL06/11/2025 1:52 PM EDTCLINICAL LABORATORY, MCHBilirubin Direct0.10.0 - 0.5 mg/dL06/11/2025 1:52 PM EDTCLINICAL LABORATORY, MCHBilirubin, Total0.60.3 - 1.2 mg/dL06/11/2025 1:52 PM EDTCLINICAL LABORATORY, MCHAlkaline Phosphatase 8740 - 150 U/L1 1:52 PM EDTCLINICAL LABORATORY, MCHALT (SGPT)320 - 55 U/L1 1:52 PM EDTCLINICAL LABORATORY, MCHTotal Protein7.56.4 - 8.3 g/dL06/11/2025 1:52 PM EDTCLINICAL LABORATORY, UZNYJL07(H)<39 U/L1 1:52 PM EDTCLINICAL LABORATORY, MCHSpecimen (Source)Anatomical Location / LateralityCollection Method / VolumeCollection TimeReceived TimeBlood Venipuncture / Itjtoww3106/11/2025 12:41 PM EDT1 12:47 PM EDT Narrative Authorizing ProviderResult TypeResult StatusNico Adonay MDCHEMISTRY ORDERABLES Final ResultPerforming OrganizationAddressCity/State/ZIP CodePhone Number CLINICAL LABORATORY, [address] [address] * ALCOHOL (ETHANOL),BLOOD (06/11/2025 12:41 PM EDT)ComponentValueRef RangeTest MethodAnalysis TimePerformed AtPathologist SignatureSerum Alcohol<10<10 mg/dL 06/11/2025 1:52 PM EDTCLINICAL LABORATORY, MCHSpecimen (Source)Anatomical Location / LateralityCollection Method / VolumeCollection TimeReceived Time BloodVenipuncture / Fuzlmjr5906/11/2025 12:41 PM EDT1 12:47 PM EDT Narrative Authorizing ProviderResult TypeResult StatusBubba Urias MDDRUG/TOXICOLOGYFinal ResultPerforming OrganizationAddressCity/State/ZIP CodePhone Number CLINICAL LABORATORY, [place] [address] * ACETONE, SERUM, KETONES (06/11/2025 12:41 PM EDT)ComponentValueRef RangeTest MethodAnalysis TimePerformed AtPathologist SignatureBeta Hydroxybutyrate0.21 0.02 - 0.27 mmol/L1 1:52 PM EDTCLINICAL LABORATORY, [facility]OL[facility] HEALTHSpecimen (Source)Anatomical Location / LateralityCollection Method / VolumeCollection TimeReceived TimeBloodVenipuncture / Xlwurqu8006/11/2025 12:41 PM EDT1 12:47 PM EDT Narrative Authorizing ProviderResult TypeResult StatusBubba Urias MDHEMATOLOGY ORDERABLES Final ResultPerforming OrganizationAddressCity/State/ZIP CodePhone Number CLINICAL LABORATORY, [place] [address] * (ABNORMAL) MANUAL DIFF (06/11/2025 12:41 PM EDT)ComponentValueRef RangeTest MethodAnalysis TimePerformed AtPathologist SignatureWBC Count15.00K/uL 06/11/2025 1:25 PM EDTCLINICAL LABORATORY, MCHNeutrophil Segmented Ccuidj15% 06/11/2025 1:25 PM EDTCLINICAL LABORATORY, MCHNeutrophil Band % Dywurj02% 06/11/2025 1:25 PM EDTCLINICAL LABORATORY, MCHLymphocyte % Njmsyk06%06/11/2025 1:25 PM EDTCLINICAL LABORATORY, MCHMonocyte % Manual2%06/11/2025 1:25 PM EDT CLINICAL LABORATORY, MCHEosinophils % Manual1%06/11/2025 1:25 PM EDTCLINICAL LABORATORY, MCHMetamyelocyte % Manual1%06/11/2025 1:25 PM EDTCLINICAL LABORATORY, MCHAbs Segs Manual9.30(H)1.80 - 7.70 K/uL06/11/2025 1:25 PM EDT CLINICAL LABORATORY, MCHAbs Bands Manual1.95(H)0.00 - 0.70 K/uL06/11/2025 1:25 PM EDTCLINICAL LABORATORY, MCHAbs Lymph Manual3.151.00 - 4.80 K/uL06/11/2025 1:25 PM EDTCLINICAL LABORATORY, MCHAbs [place] Manual0.300.20 - 0.40 K/uL 06/11/2025 1:25 PM EDTCLINICAL LABORATORY, MCHAbs Eos Manual0.15K\uL06/11/2025 1:25 PM EDTCLINICAL LABORATORY, MCHAbs [place] Manual0.15>=0.00 K/uL06/11/2025 1:25 PM EDTCLINICAL LABORATORY, MCHPlatelet CommentsSpecimen integrity checked. Platelets Adequate 06/11/2025 1:25 PM EDTCLINICAL LABORATORY, MCHSpecimen (Source)Anatomical Location / LateralityCollection Method / VolumeCollection TimeReceived TimeBlood Venipuncture / Jkutezq8006/11/2025 12:41 PM EDT1 12:47 PM EDT Narrative Authorizing ProviderResult TypeResult StatusNico Adonay MDHEMATOLOGY ORDERABLES Final ResultPerforming OrganizationAddressCity/State/ZIP CodePhone Number CLINICAL LABORATORY, [place] [address] [place] [address] * (ABNORMAL) CBC AND ELECTRONIC DIFF (06/11/2025 12:41 PM EDT)ComponentValueRef RangeTest MethodAnalysis TimePerformed AtPathologist SignatureWBC Count15.0(H) 4.5 - 11.0 K/uL06/11/2025 1:08 PM EDTCLINICAL LABORATORY, MCHRBC Count5.60 Male: 4.2-5.6, Female: 3.8-5.3 M/uL06/11/2025 1:08 PM EDTCLINICAL LABORATORY, NOQTcpiwsvtbq16.513.1 - 17.2 g/dL06/11/2025 1:08 PM EDTCLINICAL LABORATORY, LTQIoduwlwniu39.239.0 - 50.0 %06/11/2025 1:08 PM EDTCLINICAL LABORATORY, MCH Mean Cell Hzcaxm28.980.0 - 99.0 fL06/11/2025 1:08 PM EDTCLINICAL LABORATORY, MCHMean Cell Hgb29.5Male: 27.0-35.0, Female: 27.0-34.0 pg06/11/2025 1:08 PM EDTCLINICAL LABORATORY, CATHOLIC HEALTHMejoceline Cell Hgb Conc33.532.0 - 36.0 g/dL06/11/2025 1:08 PM EDTCLINICAL LABORATORY, CATHOLIC HEALTHPlatelet Mueeb684591 - 400 K/uL06/11/2025 1:08 PM EDTCLINICAL LABORATORY, C[facility]OLIC HEALTHMean Platelet Volume9.47.5 - 11.2 fL 06/11/2025 1:08 PM EDTCLINICAL LABORATORY, CATHOLIC HEALTHRBC Zesymkrpzmtt97.136.7 - 49.4 fL06/11/2025 1:08 PM EDTCLINICAL LABORATORY, [facility]OL[facility] HEALTHSpecimen (Source)Anatomical Location / LateralityCollection Method / VolumeCollection TimeReceived Time BloodVenipuncture / Wqtdwnx8106/11/2025 12:41 PM EDT1 12:47 PM EDT Narrative Authorizing ProviderResult TypeResult StatusBubba Urias MDHEMATOLOGY ORDERABLES Final ResultPerforming OrganizationAddressCity/State/ZIP CodePhone Number CLINICAL LABORATORY, [address] [address] * (ABNORMAL) CK (06/11/2025 12:41 PM EDT)ComponentValueRef RangeTest Method Analysis TimePerformed AtPathologist SignatureCreatine Crzoqe291(H)30 - 200 U/L1 1:19 PM EDTCLINICAL LABORATORY, [facility]OL[facility] HEALTHSpecimen (Source)Anatomical Location / LateralityCollection Method / VolumeCollection TimeReceived Time BloodVenipuncture / Pantxnn6006/11/2025 12:41 PM EDT1 12:47 PM EDT Narrative Authorizing ProviderResult TypeResult StatusBubba Urias MDCHEMISTRY ORDERABLES Final ResultPerforming OrganizationAddressCity/State/ZIP CodePhone Number CLINICAL LABORATORY, [address] [address] * (ABNORMAL) TSH (06/11/2025 12:41 PM EDT)ComponentValueRef RangeTest Method Analysis TimePerformed AtPathologist SignatureTSH, High Sensitivity7.255(H) 0.350 - 4.940 uIU/mL06/11/2025 1:37 PM EDTCLINICAL LABORATORY, [facility]OL[facility] HEALTHSpecimen (Source)Anatomical Location / LateralityCollection Method / VolumeCollection TimeReceived TimeBloodVenipuncture / Bncakrs9806/11/2025 12:41 PM EDT1 12:47 PM EDT Narrative Authorizing ProviderResult TypeResult Sammie Urias MDENDOCRINOLOGYFinal ResultPerforming OrganizationAddressCity/State/ZIP CodePhone Number CLINICAL LABORATORY, [place] [address] [place] [address] * B-TYPE NATRIURETIC PEPTIDE (BRAIN) (06/11/2025 12:41 PM EDT)ComponentValueRef RangeTest MethodAnalysis TimePerformed AtPathologist SignatureB-Type Natriuretic Jsoeses120 - 100 pg/mL06/11/2025 1:18 PM EDTCLINICAL LABORATORYCAPITAL DISTRICT PSYCHIATRIC CENTERComment: Reference Range: <50 years of age, the normal value <125 pg/mL, rule-in cut point for acute heart failure 450 pg/mL. 50 to 75 years of age, normal value <125 pg/mL, rule-in cut point 900 pg/mL. >75 years, normal value <450 pg/mL, rule-in cut point 1800 pg/mL. Specimen (Source)Anatomical Location / LateralityCollection Method / Volume Collection TimeReceived TimeBloodVenipuncture / Tftxnyk3206/11/2025 12:41 PM EDT 06/11/2025 12:47 PM EDT Narrative Authorizing ProviderResult TypeResult Sammie Urias MDCHEMISTRY ORDERABLES Final ResultPerforming OrganizationAddressCity/State/ZIP CodePhone Number CLINICAL LABORATORY, [facility] [address] [place] [address] * TROPONIN (06/11/2025 12:41 PM EDT)ComponentValueRef RangeTest MethodAnalysis TimePerformed AtPathologist SignatureTroponin I<0.010<0.033 ng/mL06/11/2025 1:20 PM EDTCLINICAL LABORATORYCAPITAL DISTRICT PSYCHIATRIC CENTERComment: 0.034-0.110 ??INDETERMINATE >0.120 DIAGNOSTIC Specimen (Source)Anatomical Location / LateralityCollection Method / Volume Collection TimeReceived TimeBloodVenipuncture / Ckhmutz5506/11/2025 12:41 PM EDT 06/11/2025 12:47 PM EDT Narrative Authorizing ProviderResult TypeResult StatusNico Adonay MDCHEMISTRY ORDERABLES Final ResultPerforming OrganizationAddressCity/State/ZIP CodePhone Number CLINICAL LABORATORY, [place] [address] * (ABNORMAL) LACTATE, BLOOD (06/11/2025 12:41 PM EDT)ComponentValueRef RangeTest MethodAnalysis TimePerformed AtPathologist SignatureLactic Acid19.6(HH)0.5 - 2.2 mmol/L1 1:20 PM EDTCLINICAL LABORATORY, MCHComment:Lactate results >/= 2.0 mmol/L should be followed up with a measurement 2 hours later for patients with suspicion of sepsis.Specimen (Source)Anatomical Location / LateralityCollection Method / VolumeCollection TimeReceived TimeBlood Venipuncture / Frrpymr5706/11/2025 12:41 PM EDT1 12:47 PM EDT Narrative Authorizing ProviderResult TypeResult StatusNicSSM Rehab MDCHEMISTRY ORDERABLES Final ResultPerforming OrganizationAddressCity/State/ZIP CodePhone Number CLINICAL LABORATORY, [place] [phone] * (ABNORMAL) BASIC METABOLIC PANEL (06/11/2025 12:41 PM EDT)ComponentValueRef RangeTest MethodAnalysis TimePerformed AtPathologist HawahoioiGxltko764122 - 145 mmol/L1 1:20 PM EDTCLINICAL LABORATORY, MCHPotassium5.13.5 - 5.1 mmol/L1 1:20 PM EDTCLINICAL LABORATORY, XNPAwbgdaar777(H)98 - 107 mmol/L1 1:20 PM EDTCLINICAL LABORATORY, MCHCarbon Dioxide5(LL)22 - 29 mmol/L1 1:20 PM EDTCLINICAL LABORATORY, RJOUTO903 - 21 mg/dL 06/11/2025 1:20 PM EDTCLINICAL LABORATORY, MCHCreatinine1.82(H)0.72 - 1.25 mg/dL06/11/2025 1:20 PM EDTCLINICAL LABORATORY, FJFGtcqxgo698(H)70 - 105 mg/dL 06/11/2025 1:20 PM EDTCLINICAL LABORATORY, MCHCalcium9.28.4 - 10.2 mg/dL 06/11/2025 1:20 PM EDTCLINICAL LABORATORY, C[facility]OLIC HEALTHAnion Gbn56pdwl/L1 1:20 PM EDTCLINICAL LABORATORY, CATHOLIC HEALTHBUN/CREA Stvoh166 1:20 PM EDTCLINICAL LABORATORY, CATHOLIC HEALTHOsmolality (Calc)304mOsm/kg06/11/2025 1:20 PM EDTCLINICAL LABORATORY, CATHOLIC HEALTHEstimated GFR, Kdddxkhc24iA/min/1.59nfR76 1:20 PM EDTCLINICAL LABORATORY, MCHEstimated GFR,Non Qutpgwwp27 mL/min/1.03kqM72 1:20 PM EDTCLINICAL LABORATORY, CATHOL[facility] HEALTHSpecimen (Source) Anatomical Location / LateralityCollection Method / VolumeCollection Time Received TimeBloodVenipuncture / Izcgxlo1506/11/2025 12:41 PM EDT1 12:47 PM EDT Narrative Authorizing ProviderResult TypeResult StatusNico Adonay MDCHEMISTRY ORDERABLES Final ResultPerforming OrganizationAddressCity/State/ZIP CodePhone Number CLINICAL LABORATORY, [place] [address] [place] [address] documented in this encounter Visit Diagnoses Diagnosis Elevated troponin- Primary Other abnormal blood chemistry Lactic acidosis Acidosis Elevated troponin Other abnormal blood chemistry Mural thickening of sigmoid colon Other specified disorder of intestines Dehydration MURPHY (acute kidney injury) Acute kidney failure, unspecified documented in this encounter Admitting Diagnoses Diagnosis Elevated troponin Other abnormal blood chemistry documented in this encounter Administered Medications Medication OrderMAR ActionAction DateDoseRateSite aspirin chewable tablet 324 mg 324 mg, Oral, ONCE, 1 dose, On Mon06/11/25 at 2145 Given06/11/2025 10:07 PM OQX809 mg iohexol (OMNIPAQUE) 350 MG/ML injection 100 mL 100 mL, Intravenous, ONCE, 1 dose, On Mon06/11/25 at 1430, Extravasation Risk. Given - Nxonkvomy56/29/2025 2:04 PM KEE957 mL Morphine injection 4 mg 4 mg, Intravenous, ONCE, 1 dose, On Mon06/11/25 at 2130 Given06/11/2025 8:53 PM EDT4 mg Ondansetron (ZOFRAN-ODT) disintegrating tablet 4 mg 4 mg, Oral, EVERY 6 HOURS NEEDED, Starting on Mon06/11/25 at 2140, Until Mon06/12/25 at 1550, Nausea / Vomiting, 1st line Ondansetron 4mg/2ml (ZOFRAN) injection 4 mg 4 mg, Intravenous, ONCE, 1 dose, On Mon06/11/25 at 1630 Given06/11/2025 3:51 PM EDT4 mg Ondansetron 4mg/2ml (ZOFRAN) injection 4 mg 4 mg, Intravenous, EVERY 6 HOURS NEEDED, Starting on Mon06/11/25 at 2140, Until Lexus 06/12/25 [id number], Nausea / Vomiting, 1st line Ondansetron 4mg/2ml (ZOFRAN) injection 4 mg 4 mg, Intravenous, ONCE, 1 dose, On Mon06/11/25 at 1915 Given06/11/2025 6:40 PM EDT4 mg Prochlorperazine (COMPAZINE) injection 10 mg 10 mg, Intravenous, ONCE, 1 dose, On Mon06/11/25 at 2000, For IV route: dilute dose with 10mL normal saline and give by slow IV push at a rate of 5mg/min. Maximum of 40mg/day. Given06/11/2025 7:23 PM EDT10 mg regadenoson (LEXISCAN) injection 0.4 mg 0.4 mg, Intravenous, ONCE, 1 dose, On Lexus 06/12/25 at 1000, Give rapid iv push over 10 seconds Given06/12/2025 10:01 AM EDT0.4 mgLeft Arm Sodium chloride 0.9% IV solution 1,000 mL 1,000 mL, Intravenous, ONCE, 1 dose, On Mon06/11/25 at 1315 $$New Bag$$06/11/2025 12:43 PM EDT1,000 mL999 mL/hr Sodium chloride 0.9% IV solution 1,000 mL 1,000 mL, Intravenous, ONCE, 1 dose, On Mon06/11/25 at 1430 $$New Bag$$06/11/2025 1:57 PM EDT1,000 mL999 mL/hr Sodium chloride 0.9% IV solution 1,000 mL 1,000 mL, Intravenous, ONCE, 1 dose, On Mon06/11/25 at 1530 $$New Bag$$06/11/2025 3:23 PM EDT1,000 mL999 mL/hr Sodium chloride 0.9% IV solution Intravenous, at 100 mL/hr, CONTINUOUS, Starting on Mon06/11/25 at 2145, Until Lexus 06/12/25 at 1550 Rate/Dose Okpoho1806/12/2025 1:39 PM VQW960 mL/hr$$New Bag$$06/12/2025 6:33 AM EDT 100 mL/hr$$New Bag$$06/11/2025 10:07 PM GAZ759 mL/hr Technetium tc 99m sestamibi (SESTAMIBI) 12.8 millicurie 12.8 millicurie, Intravenous, ONCE, 1 dose, On Lexus 06/12/25 at 0830 Given - Cozufslnt62/30/2025 8:15 AM EDT12.8 millicuriesLeft Arm Technetium tc 99m sestamibi (SESTAMIBI) 32.6 millicurie 32.6 millicurie, Intravenous, ONCE, 1 dose, On Lexus 06/12/25 at 1015 Given - Madoyjois45/30/2025 10:01 AM EDT32.6 millicuriesLeft Armdocumented in this encounter Active and Recently Administered Medications Times are shown in EDT.Medication Order aspirin chewable tablet 324 mg (COMPLETED) 324 mg, Oral, ONCE, 1 dose, On Mon06/11/25 at 2145 * 2207 (Given - Provider: Gladys Miller, RN) iohexol (OMNIPAQUE) 350 MG/ML injection 100 mL (COMPLETED) 100 mL, Intravenous, ONCE, 1 dose, On Mon06/11/25 at 1430, Extravasation Risk. * 1404 (Given - Radiology - Provider: Ashwin Martinez) Morphine injection 4 mg (COMPLETED) 4 mg, Intravenous, ONCE, 1 dose, On Mon06/11/25 at 2130 * 205 (Given - Provider: iMlly Rosas, JUDY) Ondansetron 4mg/2ml (ZOFRAN) injection 4 mg (COMPLETED) 4 mg, Intravenous, ONCE, 1 dose, On Mon06/11/25 at 1630 * 1551 (Given - Provider: Dayna France RN) Ondansetron 4mg/2ml (ZOFRAN) injection 4 mg (COMPLETED) 4 mg, Intravenous, ONCE, 1 dose, On Mon06/11/25 at 1915 * 1840 (Given - Provider: Loren Lucio, JUDY) Prochlorperazine (COMPAZINE) injection 10 mg (COMPLETED) 10 mg, Intravenous, ONCE, 1 dose, On Mon06/11/25 at 2000, For IV route: dilute dose with 10mL normal saline and give by slow IV push at a rate of 5mg/min. Maximum of 40mg/day. * 1923 (Given - Provider: Milly Rosas RN) regadenoson (LEXISCAN) injection 0.4 mg (COMPLETED) 0.4 mg, Intravenous, ONCE, 1 dose, On Mon06/12/25 at 1000, Give rapid iv push over 10 seconds * 1001 (Given - Provider: Aziza Ordoñez) Sodium chloride 0.9% IV solution 1,000 mL (COMPLETED) 1,000 mL, Intravenous, ONCE, 1 dose, On Mon06/11/25 at 1315 * 1243 ($$New Bag$$ - Provider: Loren Lucoi RN) * 1357 (Stopped - Provider: Loren Lucio RN) Sodium chloride 0.9% IV solution 1,000 mL (COMPLETED) 1,000 mL, Intravenous, ONCE, 1 dose, On Mon06/11/25 at 1430 * 1357 ($$New Bag$$ - Provider: Loren Lucio RN) * 1523 (Stopped - Provider: Loren Lucio RN) Sodium chloride 0.9% IV solution 1,000 mL (COMPLETED) 1,000 mL, Intravenous, ONCE, 1 dose, On Mon06/11/25 at 1530 * 1523 ($$New Bag$$ - Provider: Loren Lucio RN) * 1630 (Stopped - Provider: Loren Lucio RN) Technetium tc 99m sestamibi (SESTAMIBI) 12.8 millicurie (COMPLETED) 12.8 millicurie, Intravenous, ONCE, 1 dose, On Lexus /30/25 at 0830 * 0815 (Given - Radiology - Provider: Aziza Ordoñez) Technetium tc 99m sestamibi (SESTAMIBI) 32.6 millicurie (COMPLETED) 32.6 millicurie, Intravenous, ONCE, 1 dose, On Mon06/12/25 at 1015 * 1001 (Given - Radiology - Provider: Aziza Ordoñez) Medication Order/ Sodium chloride 0.9% IV solution Intravenous, at 100 mL/hr, CONTINUOUS, Starting on Mon06/11/25 at 2145, Until Lexus 06/12/25 at 1550 * 2207 ($$New Bag$$ - Provider: Gladys Miller RN) * 0633 ($$New Bag$$ - Provider: Gladys Miller RN) * 1339 (Rate/Dose Verify - Provider: Dania Singh RN) * 1340 (Stopped - Provider: Dania Singh RN) Medication Order Acetaminophen (TYLENOL) tablet 650 mg 650 mg, Oral, EVERY 6 HOURS NEEDED, Starting on Mon06/11/25 at 2140, Until Lexus 06/12/25 at 1550, Mild Pain, Moderate Pain, Headaches, fever greater than 100.5 F, Maximum dose of acetaminophen is 4000 mg from all sources in 24 hours. magnesium hydroxide (MILK OF MAGNESIA) oral suspension 30 mL 30 mL, Oral, EVERY 24 HOURS NEEDED, Starting on Mon06/11/25 at 2140, Until Lexus 06/12/25 at 1550, not relieved by senokot (2nd line) Melatonin tablet 5 mg 5 mg, Oral, DAILY AT BEDTIME NEEDED, Starting on Mon06/11/25 at 2140, Until Lexus 06/12/25 at 1550, Insomnia Ondansetron (ZOFRAN-ODT) disintegrating tablet 4 mg(Linked Group 1) 4 mg, Oral, EVERY 6 HOURS NEEDED, Starting on Mon06/11/25 at 2140, Until Lexus 06/12/25 at 1550, Nausea / Vomiting, 1st line Ondansetron 4mg/2ml (ZOFRAN) injection 4 mg(Linked Group 1) 4 mg, Intravenous, EVERY 6 HOURS NEEDED, Starting on Mon06/11/25 at 2140, Until Lexus 06/12/25 [id number], Nausea / Vomiting, 1st line Senna (SENOKOT) tablet 8.6 mg 8.6 mg, Oral, DAILY NEEDED, Starting on Mon06/11/25 at 2140, Until Mon06/12/25 at 1550, Constipation 1st Line Order Group 1: Ondansetron 4mg/2ml (ZOFRAN) injection 4 mgJump to med 4 mg, Intravenous, EVERY 6 HOURS NEEDED, Starting on Mon06/11/25 at 2140, Until Lexus 06/12/25 [id number], Nausea / Vomiting, 1st line Or Ondansetron (ZOFRAN-ODT) disintegrating tablet 4 mgJump to med 4 mg, Oral, EVERY 6 HOURS NEEDED, Starting on Mon06/11/25 at 2140, Until Lexus 06/12/25 at 1550, Nausea / Vomiting, 1st line documented in this encounter Care Teams Team MemberRelationshipSpecialtyStart DateEnd Date Bobbi Vigil MD [address] [place] [address] PCP - GeneralFamily Rblkptjp96/29/25documented as of this encounter
--- OUTSIDE RECORDS SUMMARY | 2025-06-23 15:10 | XMS_ITS ---
Author Organization [facility] Address [address] [place] [id number] Care Team Providers Care Manager Division Name Role Phone Bobbi Vigil MD Primary Care Provider [phone] Santiago Villalba MD Unavailable [phone] Magalis Voss KNITTER OPERATOR.MAILROOM ASSISTANT Unavailable [phone] Yosef Jain MD Unavailable Active Problems ProblemNoted DateDiagnosed NkbyFbcyyiyrlt19/15/2024Malignant neoplasm of salivary gland03/10/2021 Current Treatment and Therapy Plans No current plan information found. Past Treatment and Therapy Plans Plan NameStart DateDiscontinue DateTreatment MedicationsDiscontinue ReasonPlan ProviderCyclesCISPLATIN 40 D1,8,15,22 - Q28D/* CISplatin iv piggyback or iv infusion * fosaprepitant (EMEND) Santiago Torres MDTreatment not started
--- OUTSIDE RECORDS SUMMARY | 2025-06-23 15:10 | XMS_ITS | Clinical Summary ---
Author Organization [facility] Address [address] [place] [address] Phone Care Team Providers Care Computer Operations Specialist Name Role Phone Unavailable Primary Care Provider Unavailabl e Social History Tobacco UseTypesPacks/DayYears UsedDateSmoking Tobacco: Never AssessedSex and Gender InformationValueDate RecordedSex Assigned at BirthNot on fileLegal Sex Male07/08/2022 5:43 PM ESTGender IdentityNot on fileSexual OrientationNot on file Plan of Treatment Not on file
--- OUTSIDE RECORDS SUMMARY | 2025-06-23 15:10 | XMS_ITS | Clinical Summary ---
Author Organization [facility] Address [address] [place] [id number] Care Team Providers Care Short Haul Driver Name Role Phone Bobbi Vigil MD Primary Care Provider [phone] Santiago Villalba MD Unavailable [phone] Magalis Voss CHERRY CUTTER.VP ANCILLARY Unavailable [phone] Yosef Jain MD Unavailable Allergies No known active allergies Medications MedicationSigDispense QuantityRefillsLast FilledStart DateEnd DateStatus ibuprofen (MOTRIN) 200 mg tablet Take 400 mg by mouth every 6 hours as needed.Active iv contrast (will be provided with radiology test) Indications:Head and neck cancer (HCC)CT Chest W -Inject, intravenously, once for 1 dose.No IV access, insert saline lock prior to the beginning of sedation, infusion, injection of imaging exam. Discontinue saline lock post exam. If Pt. h as a central line or IVAD, may access for administration according to line specific nursing protocol. Once exam is complete flush line and de-access according to line specific nursing protocol in theCT contrast administration guidelines link. 1 Each 09/10/2021ctive multivitamin tablet Take 1 tablet by mouth once daily.Active diphenhydrAMINE 12.5 mg/5 mL lidocaine visc 2% MAALOX 200-200-20 mg/5 mL oral liquid 1:1:1 (CPD) Take (swish) 5 mL to 10 mL by mouth and swallow (allowing to coat the back of the throat) 5 to 6 times a day as needed for discomfort including before meals and before bedtime 300 mL 3:21 PM EDT05/06/2024ctive Additional Information Patient not taking.Reason: Discontinued by Patient, Reported on 05/23/2025 iv contrast (will be provided with radiology test) Indications:Malignant neoplasm of salivary gland (HCC),Malignant neoplasm of parotid gland (HCC)CT Chest W -Inject, intravenously, once for 1 dose.No IV access, insert saline lock prior to the beginning of sedation, infusion, injection of imaging exam. Discontinue saline lock post exam. If Pt. has a central line or IVAD, may access for administration according to line specific nursing protocol. Once exam is complete flush line and de-access according to line specific nursing protocol in theCT contrast administration guidelines link. 1 Each 4Active iv contrast (will be provided with radiology test) Indications:Malignant neoplasm of salivary gland (HCC)CT Chest W -Inject, intravenously, once for 1 dose.No IV access, insert saline lock prior to the beg inning of sedation, infusion, injection of imaging exam. Discontinue saline lock post exam. If Pt. has a central line or IVAD, may access for administration according to line specific nursing protocol. Once exam is complete flush line and de-access according to line specific nursing protocol in theCT contrast administration guidelines link. 1 each 5Active iv contrast (will be provided with radiology [...] according to line specific nursing protocol in theCT contrast administration guidelines link. 1 each 5Active iv contrast (will be provided with radiology test) Inject 1 each intravenously one time only [...] and de-access according to line specific nursing protocolin the CT contrast administration guidelines link. 1 each Expired Active Problems ProblemNoted DateDiagnosed CrlyXrgbtbltjd68/15/2024Malignant neoplasm of salivary gland03/10/2021 Encounters DateTypeDepartmentCare XvmdWghqxovvgim95/22/2025 Get Medical Advice Radiation Oncology [address] [address] Yosef Jain MD Next appt1 11:00 AM EDTOffice Visit Radiation Oncology [address] [address] Yosef Jain MD 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)05/16/2025 7:45 AM EDT - 05/16/2025 11:59 PM EDTHospital Encounter Radiology Pet CT [address] [address] 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] Discharge Disposition: Home05/16/2025Travelfrom Last 3 Months Immunizations ImmunizationAdministration DatesNext DueCOVID-19 original vaccine, age 12+ yr, monovalent ([employer] - PURPLE TOP)10/19/2020,10/01/2020iphtheria tetanus pertussis (DTP) sqifuum3310/27/2021hepatitis B (HepB) vaccine, 3-dose series, age 20+ yr (ENGERIX-B, RECOMBIVAX HB)01/25/2002,11/12/2001,08/28/2001 Family History Medical HistoryRelationCommentsNo Known ProblemsBrotherNo Known ProblemsFatherNo Known ProblemsMotherProstate CancerPaternal GrandfatherNo Known ProblemsSister RelationStatusCommentsBrotherFatherMotherPaternal GrandfatherSister Social History Tobacco UseTypesPacks/DayYears UsedDateSmoking Tobacco: FormerCigarettes0.316 1995 - 2011Smokeless Tobacco: Never Tobacco Cessation:Counseling Given: Not Answered Alcohol UseStandard Drinks/WeekCommentsYes0 (1 standard drink = 0.6 oz pure alcohol)PHQ-2AnswerDate RecordedPHQ-2 jruoo154/10/2025Area Deprivation Index AnswerDate RecordedNational Score (1-100), lower number is lower risk61 03/18/2024State Score (1-10), lower number is lower apbd965ata from: https://www.neighborhoodatlas.[facility]/. Last address used for lrlsgeznnuc[address]03/18/2024Sex and Gender InformationValueDate RecordedSex Assigned at BirthNot on fileLegal HirWioj8702/11/2021 10:52 AM EDT Gender IdentityNot on fileSexual OrientationNot on file Last Filed Vital Signs Vital SignReadingTime TakenCommentsBlood Mjbkipfr014/9005/23/2025 11:05 AM EDT Fdkuu182705/23/2025 11:05 AM SKPKaafhjugtxj94.8 ??C (98.3 ??F)05/23/2025 11:05 AM EDTRespiratory Uikv8165 11:05 AM EDTOxygen Xmufainaek06%05/23/2025 11:05 AM EDTInhaled Oxygen Concentration--Hcdqfo049.6 kg (235 lb 0.2 oz)05/23/2025 11:05 AM MFGIimbfw089 cm (5' 10.08 )03/25/2024 2:57 PM EDTBody Mass Index33.64 03/25/2024 2:57 PM EDT Plan of Treatment DateTypeDepartmentCare Team (Latest Contact Info)Olafwmgqikb85/05/2026 10:15 AM EDTAppointment Radiology Pet CT [address] [place] [address] CT Chest and neck05/25/2026 1:00 PM EDTOffice Visit Radiation Oncology [address] [address] Yosef Jain MD [address] [address] scanHealth MaintenanceDue DateLast DoneCommentsAnxiety Vebjmxwgf08/09/1996Depression Bzfpmelpd65/09/1996HIV Mycvpelhp65/09/1996 Hepatitis C Kunqsfbjd04/09/1996Lipid Erislnfeq67/09/2013CT Colonography 12/20/20221193Sdixvplxplj32/09/2023Fecal Occult Blood2022Sigmoidoscopy 2022ovid-19 Vaccine ( season)/, 10/19/2020, 10/01/2020Influenza Vaccine (#1)5Cologuard (FIT-DNA)10/10/2026 4Colorectal Cancer Bghooplll24/27/2027Diabetes Dtwuruose01/13/2027 02/24/2024, 07/16/2021, 1DTaP,Tdap,Td Vaccine (2 - Tdap)10/28/2031 10/27/2021Hepatitis B SxjkvioIfzottwmn64/14/2002, 11/12/2001, 08/28/2001 Procedures Procedure NamePriorityDate/TimeAssociated DiagnosisCommentsCT NECK SOFT TISSUE W NYOQXPfvckam08/03/2025 8:36 AM EDT Malignant neoplasm of salivary gland (HCC) CT CHEST W UKIQGOwjtezi23/03/2025 8:36 AM EDT Malignant neoplasm of salivary gland (HCC) COMPREHENSIVE METABOLIC KXLFXWhaeenf74/03/2021 1:01 PM EST Malignant neoplasm of salivary gland (HCC) from Last 3 Months or Most Recently Relevant to Health Maintenance Results * CT CHEST W IVCON (05/16/2025 8:36 AM EDT)Anatomical RegionLateralityModality ChestNuclear Medicine, Nuclear MedicineSpecimen (Source)Anatomical Location / LateralityCollection Method / VolumeCollection TimeReceived Time05/16/2025 8:36 AM EDT Impressions 05/16/2025 5:08 PM EDT IMPRESSION: Stable CT of the chest. ??No evidence of intrathoracic metastatic disease. Transcribe Date/Time: May ??2024 ??5:03P Dictated by: MOI ROSSI MD This examination was interpreted and the report reviewed and electronically signed by: MOI ROSSI MD on May ??2024 ??5:06PM ??EST Thank you for allowing us to participate in the care of your patient. Should there be any questions regarding this interpretation, please call [phone]. If you are unable to reach us at the number above, please feel free to contact [facility] at [phone]. Narrative 05/16/2025 5:08 PM EDT * * *Final Report* * * DATE OF EXAM: May ??3 2024 ??8:36AM ?? NRC ?? 0539 ??- ??CT CHEST W IVCON ??/ PROCEDURE REASON: Malignant neoplasm of salivary gland (HCC) ? * * * * Physician Interpretation * * * * RESULT: EXAMINATION: ??CHEST CT WITH CONTRAST CLINICAL HISTORY: Malignant neoplasm of salivary gland. Technique: ??Spiral CT acquisition of the chest from the thoracic inlet to the upper abdomen following IV contrast. MQ: ??CTCW_6 Contrast: ??100 mL Omnipaque [address] Radiation dose: Integrated Dose-length product (DLP) for this visit = ?? 1189 mGy*cm CT Dose Reduction Employed: Automated exposure control (AEC) Comparison: CT chest performed 12/05/2024 RESULT: Limitations: ??None. Lines, tubes, and devices: ??None. Lung parenchyma and airways: No lobar consolidation is seen. ??There is a stable 2 mm nodular opacity in the left upper lobe (5:62). ??An additional punctate 1-2 mm nodule is seen posterior medially in the left upper lobe (5:64). ??No new nodules are seen. ??The central airways are widely patent. Pleural space: ??No pleural effusion. ??No pleural thickening. Lower neck, lymph nodes, and mediastinum: ??The imaged thyroid gland is normal. ??No lymphadenopathy in the supraclavicular, axillary, mediastinal, or hilar regions. Heart, pericardium, and thoracic vessels: ??The thoracic aorta and main pulmonary artery are normal in caliber. The cardiac chambers are normal in size. No coronary artery atherosclerotic calcifications are noted, although the study is not optimized for coronary assessment. No pericardial effusion or thickening. Bones and soft tissues: ??No destructive bone lesion. Chest wall is unremarkable. Upper abdomen: ??No abnormality in the imaged upper abdomen. Localizer images: No additional findings. Procedure Note Provider, [facility] - 05/16/2025 * * *Final Report* * * DATE OF EXAM: May 16 2025 8:36AM [facility] 0539 - CT CHEST W [...] nodules are seen. The central airways are widelypatent. Pleural space: No pleural effusion. No pleural [...] Localizer images: No additional findings. IMPRESSION IMPRESSION: Stable CT of the chest. No evidence of intrathoracic metastaticdisease. Transcribe Date/Time: May 16 2025 5:03P Dictated by: MOI ROSSI MD This examination was interpreted and the report reviewed and electronically signed by: MOI ROSSI MD on May 16 2025 5:06PM EST Thank you for allowing us to participate in the care of your patient. Should there be any questions regarding this interpretation, please call [phone]. If you are unable to reach us at the number above, please feel free to contact [facility] at [phone]. Authorizing ProviderResult TypeResult StatusYosef Jain MDCT-PAMAFinal Result * CT NECK SOFT TISSUE W IVCON (05/16/2025 8:36 AM EDT)Anatomical Region LateralityModalityNeckNcleveland clinic [facility] Medicine, Nuclear MedicineSpecimen (Source) Anatomical Location / LateralityCollection Method / VolumeCollection Time Received Time05/16/2025 8:36 AM EDT Impressions 05/16/2025 9:52 AM EDT IMPRESSION: No evidence of residual/recurrent disease or pathological cervical chain adenopathy. Transcribe Date/Time: May ??2024 ??9:46A Dictated by: HARJINDER KURTZ MD This examination was interpreted and the report reviewed and electronically signed by: HARJINDER KURTZ MD on May ??2024 ??9:50AM ??EST Thank you for allowing us to participate in the care of your patient. Should there be any questions regarding this interpretation, please call [phone]. If you are unable to reach us at the number above, please feel free to contact [facility] at [phone]. Narrative 05/16/2025 9:52 AM EDT * * *Final Report* * * DATE OF EXAM: May ??2024 ??8:36AM ?? NRC ?? 0013 ??- ??CT NECK SOFT TISSUE W IVCON ??/ PROCEDURE REASON: Malignant neoplasm of salivary gland (HCC) ? * * * * Physician Interpretation * * * * RESULT: CT NECK SOFT TISSUE W IVCON CLINICAL HISTORY: Malignant neoplasm of salivary gland. TECHNIQUE: ??A series of contiguous helical scans were performed from the skull base to the aortic arch with intravenous contrast. ??Supplemental: N/A Contrast: ??Omnipaque 300. Contrast Dose: ??100 cc Route of Administration: ??IV CT Radiation dose: Integrated Dose-length product (DLP) for this visit = ?? 1189 mGy*cm. CT Dose Reduction Employed: Automated exposure control (AEC) COMPARISON: CT 12/05/2024. RESULT: Localizer images: No additional findings. Postoperative/Treatment Change: Prior operative changes related to right partial pharyngectomy, right lingual tonsillectomy, with surgical clips in the dorsal right aspect of the right tongue along the bilateral neck pain. ??Prior neck dissection. ??Small surgical clip in the left parotid. Aerodigestive tract: Normal. Major salivary glands: Normal. Thyroid gland: Normal. Lymph Nodes: No cervical lymphadenopathy by size criteria. Carotid/Parapharyngeal/Retropharyngeal Spaces: Patent extracranial carotid systems and internal jugular veins bilaterally. ?? Otherwise normal. Orbits, Face and Skull Base: Paranasal sinuses, mastoid air cells, and middle ear cavities are clear. ??Otherwise normal. Imaged intracranial contents: No intracranial mass effect or hydrocephalus. No abnormal intracranial enhancement. Cervical spine and remaining osseous structures: No osteolytic or osteoblastic process. Lung apices: No consolidation or mass. Other: Not applicable. Procedure Note Provider, [facility] [place] - 05/16/2025 * * *Final Report* * * DATE OF EXAM: May 16 2025 8:36AM [facility] 0013 - CT NECK SOFT [...] No consolidation or mass. Other: Not applicable. IMPRESSION IMPRESSION: No evidence of residual/recurrent disease or [...] any questions regarding this interpretation, please call [phone]. If you are unable to reach us at the number above, please feel free to contact [facility] at [phone]. Authorizing ProviderResult TypeResult StatusSaju Cristobal MDCT-PAMAFinal Result * (ABNORMAL) COMP METABOLIC PANEL (07/16/2021 1:01 PM EST)ComponentValueRef RangeTest MethodAnalysis TimePerformed AtPathologist SignatureProtein, Total 7.06.3 - 8.0 g/dL07/16/2021 1:29 PM [facility] CareAlbumin4.63.9 - 4.9 g/dL07/16/2021 1:29 PM [facility] CareCalcium9.58.5 - 10.2 mg/dL07/16/2021 1:29 PM [facility] CareBilirubin, Total1.4(H)0.2 - 1.3 mg/dL07/16/2021 1:29 PM [facility] CareAlkaline Owdbrmmryjp2059 - 113 U/L 07/16/2021 1:29 PM [facility] YnpiCYA2984 - 40 U/L 07/16/2021 1:29 PM [facility] AarmLqdbaxp7903 - 99 mg/dL07/16/2021 1:29 PM [facility] Cancer CareComment: The [place] Diabetes Association (ADA) provides guidance for cutoff values for fasting glucose and random glucose. The ADA defines fasting as no caloric intake for at least 8 hours. Fasting plasma glucose results between 100 to 125 mg/dL indicate increased risk for diabetes (prediabetes). Fasting plasma glucose results greater than or equal to 126 mg/dL meet the criteria for diagnosis of diabetes. In the absence of unequivocal hyperglycemia, results should be confirmed by repeat testing. In a patient with classic symptoms of hyperglycemia or hyperglycemic crisis, random plasma glucose results greater than or equal to 200 mg/dL meet the criteria for diagnosis of diabetes. Reference: Standards of Medical Care in Diabetes 2016, [place] [employer] Association. Diabetes Care. 2016.39(Suppl 1). YUI098 - 24 mg/dL07/16/2021 1:29 PM [facility] Creatinine1.100.73 - 1.22 mg/dL07/16/2021 1:29 PM [facility] WikbSzmrgu925772 - 144 mmol/L109/16/2020 1:29 PM [facility] Cancer CarePotassium4.03.7 - 5.1 mmol/L109/16/2020 1:29 PM [facility] VercRksvuitt40216 - 105 mmol/L109/16/2020 1:29 PM [facility] HueoBH80144 - 30 mmol/L109/16/2020 1:29 PM [facility] CareAnion Vto026 - 18 mmol/L 07/16/2021 1:29 PM [facility] VbjrFHN1156 - 54 U/L 07/16/2021 1:29 PM [facility] CareeGFR->6007/16/2021 1:29 PM [facility] Cancer CareeGFR- All Other Races>60.07/16/2021 1:29 PM [facility] Cancer CareComment: eGFR (Estimated GFR) Units of measure: mL/min/1.73 [...] visit the National Kidney Foundation website at kidney.org/professionals/kdoqi/gfr_calculator. Specimen (Source)Anatomical Location / LateralityCollection Method / Volume Collection TimeReceived TimeBloodOTHER / Eyiiizq6307/16/2021 1:01 PM EST07/16/2021 1:06 PM EST Narrative Authorizing ProviderResult TypeResult StatusSantiago Villalba MDLABORATORYFinal ResultPerforming OrganizationAddressCity/State/ZIP CodePhone Number [facility] [address] [address] [facility] [address] [place] [address] from Last 3 Months or Most Recently Relevant to Health Maintenance Insurance Care Teams Team MemberRelationshipSpecialtyStart DateEnd Date Bobbi Vigil MD [address] [place] [address] PCP - GeneralFamily Medicine02/18/21 Santiago Villalba MD [address] [place] [address] [place] [address] PhysicianHematology/Oncology03/12/21 Magalis Voss APRN.VP ANCILLARY [address] [address] Nurse PractitionerHematology/Oncology03/12/21 Yosef Jain MD [address] [address] PhysicianRadiation Oncology03/12/21
--- OUTSIDE RECORDS SUMMARY | 2025-06-23 15:10 | XMS_ITS | Continuity of Care Document ---
Author Organization [facility] Address [address] [place] [address] Care Team Providers Care Insurance Adviser Name Role Phone Khadar Hill DO Unavailable [phone] Bobbi Vigil MD Primary Care Provider [phone] Encounters DateTypeDepartmentCare XnjcBfvoyvfpbdq35/22/2025amboo flowsheet [facility] [address] [address] Khadar Hill, 06/04/20251445Rmxkwz07/22/2025 2:15 PM EDTOffice Visit [facility] [address] [place] [address] Khadar Hill, DO Metastatic cancer to cervical lymph nodes (HCC) (Primary Dx); Salivary gland cancer (HCC); History of neck slznvtxqup25/16/2025amboo flowsheet [facility] [address] [place] [address] Khadar Hill, 02/26/20254755Cgrzgw58/16/2025 2:00 PM EDTOffice Visit [facility] [address] [place] [address] Khadar Hill, Salivary gland cancer (HCC) (Primary Dx); History of neck hxtduuudda35/28/2025amboo flowsheet [facility] [address] [place] [address] Khadar Hill, 01/08/20252683Mlbyzw27/28/2025 1:15 PM EDTOffice Visit [facility] [address] [place] [address] Khadar Hill, Metastatic cancer to cervical lymph nodes (HCC) (Primary Dx); 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, face, or neck with unknown primary site (HCC); History of neck fdnehnabyn90/02/3960Baenvk10/02/2025 1:15 PM EDTOffice Visit [facility] [address] [place] [address] Khadar Hill, Metastatic cancer to cervical lymph nodes (HCC) (Primary Dx); 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, face, or neck with unknown primary site (HCC)09/25/20249215Nliebc59/12/2025 2:15 PM ESTOffice Visit [facility] [address] [place] [address] Khadar Hill, Encounter for follow-up surveillance of salivary gland cancer (Primary Dx); Metastatic cancer to cervical lymph nodes (HCC); History of neck bfbinhfuxp15/30/2024Bamboo flowsheet [facility] [address] [place] [address] Khadar Hill, 08/12/20248742Ngsjhz80/30/2024 2:45 PM ESTOffice Visit [facility] [address] [place] [address] Khadar Hill, Metastatic cancer to cervical lymph nodes (HCC) (Primary Dx); Salivary gland cancer (HCC)4Bamboo flowsheet [facility] [address] [place] [address] Khadar Hill, DO 07/01/20248210Pyzgod64/18/2024 2:15 PM ESTOffice Visit [facility] [address] [place] [address] Khadar Hill, DO Salivary gland cancer (HCC) (Primary Dx); Metastatic cancer to cervical lymph nodes (HCC)05/27/2024amboo flowsheet [facility] [place] [facility] [address] [place] [address] Khadar Hill, DO 05/27/20243982Hocxqn11/14/2024 2:15 PM EDTOffice Visit [facility] [facility] [address] [place] [address] Khadar Hill, DO Metastatic cancer to cervical lymph nodes (HCC) (Primary Dx); Salivary gland cancer (HCC)04/22/2024amboo flowsheet [facility] [address] [place] [address] Khadar Hill, DO 04/22/20246344Fcaror77/09/2024 2:15 PM EDTOffice Visit [facility] [address] [place] [address] Khadar Hill, DO Metastatic cancer to cervical lymph nodes (HCC) (Primary Dx); History of neck /06/2024amboo flowsheet [facility] [address] [place] [address] Khadar Hill, DO 03/19/20243843Jhgvgf46/06/2024 10:00 AM EDTOffice Visit [facility] [address] [place] [address] Khadar Hill, Salivary gland cancer (HCC) (Primary Dx)03/04/20245015Qfickw71/22/2024bstract [facility] [place] [facility] [address] [place] [address] Rubi Samaniego MA 03/04/2024bstract [facility] [address] [place] [address] Rubi Samaniego MA 03/04/2024 2:30 PM EDTOffice Visit [facility] [address] [place] [address] Khadar Hill, Salivary gland cancer (HCC) (Primary Dx); Metastatic cancer to cervical lymph nodes (HCC); History of neck lhddyckppl05/15/2024amboo flowsheet [facility] [address] [place] [address] Khadar Hill, 02/26/20240605Hvcwlz81/15/2024 2:00 PM EDTOffice Visit [facility] [facility] [address] [place] [address] Khadar Hill, Status post neck dissection (Primary Dx); Salivary gland cancer (HCC)02/24/2024External Result Encounter [facility] External Department Unsolicited Khadar Hill, 02/24/2024External Result Encounter [facility]OM[facility] External Department Unsolicited Khadar Hill, 02/23/2024 8:00 AM EDTProcedure Visit [facility] EXT DEP Khadar Hill, DO 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) (Primary Dx)01/17/2024 Bamboo flowsheet [facility] [place] [facility] [address] [place] [address] Khadar Hill, DO 01/17/20248984Fqazqn10/05/2024 3:15 PM EDTOffice Visit [facility] [address] [place] [address] Khadar Hill, DO Salivary gland cancer (HCC) (Primary Dx)01/15/2024External Result Encounter [facility]OM[facility] External Department Unsolicited Khadar Hill, 01/10/2024Orders Only [facility] [facility] [address] [place] [address] Richard Crabtree MA Cervical lymphadenopathy; Malignant neoplasm of head, face, and neck (HCC)01/10/2024amboo flowsheet [facility] [address] [place] [address] Khadar Hill, 01/10/20247932Fbllfc48/29/2024 2:15 PM EDTOffice Visit [facility] [address] [place] [address] Khadar Hill, DO Cervical lymphadenopathy (Primary Dx); History of salivary gland yeusxj8701/05/20247360Nbzfsq89/24/2024 1:30 PM EDTAncillary Procedure [facility] [address] [place] [address] History of neck dissection; History of head and neck tijgompev46/24/2024 12:45 PM EDTAncillary Procedure [facility] [address] [place] [address] Metastatic cancer to cervical lymph nodes (HCC); History of radical neck axvijoardd15/23/1312Qrmmzy88/08/2024Orders Only [facility] [place] [facility] [address] [place] [address] Rubi Samaniego MA Metastatic cancer to cervical lymph nodes (HCC) (Primary Dx); History of radical neck nvtmxwdywo94/06/7523Yujzxn42/06/2024 1:00 PM EDTOffice Visit [facility] [address] [place] [address] Khadar Hill, History of neck dissection (Primary Dx); Salivary gland cancer (HCC); History of head and neck radiation; Wurvlioysnn21/05/2024 3:45 PM ESTAncillary Procedure [facility] [address] [place] [address] Hmcodgynxzl47/05/2024Orders Only [facility] [place] [facility] [address] [place] [address] Richard Crabtree MA History of neck dissection; Cgnvmmelmph46/05/2024amboo flowsheet [facility] [address] [place] [address] Khadar Hill DO 09/18/20237706Koksod87/05/2024 2:15 PM ESTOffice Visit [facility] [place] [facility] [address] [place] [address] Khadar Hill, History of neck dissection (Primary Dx); Salivary gland cancer (HCC)06/14/20238363Pgtxun03/01/2023 1:30 PM EDTOffice Visit [facility] [address] [place] [address] Khadar Hill, Metastatic cancer to cervical lymph nodes (HCC) (Primary Dx); History of neck bsnqnntixa30/02/2023bstract [facility] [address] [place] [address] Khadar Hill, DO 03/15/20238939Cpovbz06/02/2023 2:45 PM EDTOffice Visit [facility] [address] [place] [address] Khadar Hill, DO Metastatic cancer to cervical lymph nodes (HCC) (Primary Dx); History of radical neck dissection; Salivary gland cancer (HCC); Change in voice12/28/2022[facility] Molina Blair MD 12/05/2022eCW Legacy Documentation [facility] 09/12/2022eCW Legacy Documentation [facility] 07/04/2022eCW Legacy Documentation [facility]VERSION [facility] 05/26/2022eCW Legacy Documentation [facility] CONVERSION [facility] 05/16/2022eCW Legacy Documentation [facility] CONVERSION [facility]GAC[facility] 04/06/2022eCW Legacy Documentation [facility] CONVERSION [facility] 12/29/2021eCW Legacy Documentation [facility] CONVERSION [facility]GAC[facility] 12/08/2021eCW Legacy Documentation [facility] CONVERSION [facility]GAC[facility] 11/17/2021eCW Legacy Documentation [facility] CONVERSION [facility] 11/11/2021eCW Legacy Documentation [facility] CONVERSION [facility]GAC[facility] 11/02/2021eCW Legacy Documentation [facility] CONVERSION [facility] 10/06/2021Legacy Non Patient Presenting [facility]VERSION [facility] Bobbi Vigil MD 09/06/2021eCW Legacy Documentation [facility] CONVERSION [facility] 08/25/2021eCW Legacy Documentation [facility]VERSION [facility] 08/24/2021eCW Legacy Documentation [facility] CONVERSION [facility]GAC[facility] 08/20/2021eCW Legacy Documentation [facility] CONVERSION LEGAC[facility] 07/14/2021CW Legacy Documentation [facility] CONVERSION LEGAC[facility] 07/07/2021CW Legacy Documentation [facility] CONVERSION LEGACY 06/10/2021CW Legacy Documentation [facility] CONVERSION LEGACY 06/09/2021CW Legacy Documentation [facility] CONVERSION LEGAC[facility] 06/02/2021W Legacy Documentation [facility] CONVERSION LEGACY 05/05/2021 Legacy Documentation [facility] CONVERSION LEGACY 04/07/2021 Legacy Documentation [facility] CONVERSION LEGAC[facility] 03/12/2021 Legacy Documentation [facility] CONVERSION [facility]GACY 03/11/2021 Legacy Documentation [facility] DATA CONVERSION LEGACY 03/10/2021 Legacy Documentation [facility] CONVERSION LEGAC[facility] 02/25/2021 Legacy Documentation [facility] CONVERSION [facility] 02/24/2021 Legacy Documentation [facility] CONVERSION [facility]GAC[facility] 02/22/2021 Legacy Documentation [facility] CONVERSION [facility] 02/18/2021ega Non Patient Presenting [facility] CONVERSION [facility] Khadar Hill, DO Encounter for preprocedural laboratory zkkmeqjhqde67/02/2021 Non Patient Presenting [facility]VERSION [facility] Khadar Hill, DO Malignant (primary) neoplasm, unspecified (HCC); Malignant neoplasm of major salivary gland, unspecified (CMS/HCC) (HCC) 02/12/2021 Non Patient Presenting [facility]VERSION [facility] Khadar Hill W, DO 02/08/2021 Legacy Documentation [facility] CONVERSION [facility] 02/05/2021 Legacy Documentation [facility] CONVERSION [facility]GAC[facility] 02/01/2021 Legacy Documentation [facility] CONVERSION [facility]GAC[facility] 01/30/2021 Lab [facility] CONVERSION LEGACY Khadar Hill W, DO 01/29/2021W Legacy Documentation [facility] DATA CONVERSION LEGACY 01/22/2021 Legacy Documentation [facility] CONVERSION LEGAC[facility] 01/15/2021ega Non Patient Presenting [facility] DATA CONVERSION LEGKhadar Griffith W, DO 01/12/2021W Legacy Documentation [facility] CONVERSION LEGACY 01/12/2021ega Non Patient Presenting [facility]OM[facility] DATA CONVERSION LEGKhadar Griffith, DO 01/07/2021ega Lab [facility] CONVERSION LEGACY Khadar Hill W, DO 01/06/2021W Legacy Documentation [facility] CONVERSION [facility]GAC[facility] 01/05/2021ega Non Patient Presenting [facility] CONVERSION [facility]GAC[facility] Khadar Hill, DO 05/24/2021eCW Legacy Documentation [facility] CONVERSION [facility] Allergies No known active allergies Medications MedicationSigDispense QuantityRefillsLast FilledStart DateEnd DateStatus ascorbic acid (Vitamin C) 500 mg chewable tablet Chew 500 mg Daily02/09/2024ctive multivitamin with minerals (Centrum) 9-200 mg-mcg tablet split tablet Take 1 tablet by mouth Daily02/09/2024ctive cholecalciferol (Vitamin D-3) 25 MCG (1000 UT) capsule Take 25 mcg by mouth Daily02/09/2024ctive oxyCODONE-acetaminophen (Percocet) 5-325 MG tablet Take 2 tablets by mouth02/24/2024ctive Active Problems ProblemNoted DateDiagnosed MnzsSfaniwffgh11/15/2024Status post radical dissection of neck12/18/2023Mucoepidermoid pewiddllg11/06/2024Metastatic cancer to cervical lymph nodes12/18/2023ervical jhffgjgwgdrepkl03/31/2023Malignant (primary) neoplasm, xxmyyfcdvnm67/31/2023Neck mass06/13/2023Nontoxic single thyroid ujingt5606/13/2023Secondary and unspecified malignant neoplasm of lymph nodes of head, face and neck06/13/20234552Qwhsfzqdxuia55/31/2023Sprain of cruciate ligament of knee06/13/2023Malignant neoplasm of salivary gland03/10/2021 Immunizations ImmunizationAdministration DatesNext SiaEHU3310/27/2021Hep B, adult01/25/2002, 11/12/2001,08/28/2001 Family History Medical HistoryRelationNameCommentsDiabetesMotherCindy SaleskiCancerPaternal GrandfatherWilliam SaleskiHeart diseasePaternal GrandmotherRelationNameStatus CommentsMotherCindy SaleskiPaternal GrandfatherWilliam SaleskiPaternal Grandmother Social History Tobacco UseTypesPacks/DayYears UsedDateSmoking Tobacco: Never AssessedSex and Gender InformationValueDate RecordedSex Assigned at BirthNot on fileLegal Sex Male10/26/2022 7:23 PM EDTGender IdentityNot on fileSexual OrientationNot on file Last Filed Vital Signs Vital SignReadingTime TakenCommentsBlood Pressure--Pulse--Temperature-- Respiratory Rate--Oxygen Saturation--Inhaled Oxygen Concentration--Udujau843 kg (230 lb)02/26/2025 2:17 PM WFKAddlpk571.8 cm (5' 10 )02/26/2025 2:17 PM EDTBody Mass Fhhiq152202/26/2025 2:17 PM EDT Plan of Treatment DateTypeDepartmentCare Team (Latest Contact Info)Yodtjuwqfni62/22/2026 1:15 PM EDTOffice Visit [facility] [place] [facility] [address] [place] [address] Khadar Hill, DO [address] [place] [address] Procedures Procedure NamePriorityDate/TimeAssociated DiagnosisCommentsBASIC METABOLIC PANEL Qejvnhc4702/24/2024 5:09 AM EDT CBC WITH AUTO FVXBLNIBZDSNCzbnpdr94/13/2024 5:09 AM EDT PET/CT SKULL BASE TO MID BYRXOLRSG65/03/2024 3:03 PM EDT Malignant neoplasm of head, face, and neck (HCC) GLUCOSE POCT XFXHIDAECGYYowhfva02/03/2024 10:44 AM EDT MR NECK SOFT TISSUE ONLY W AND WO UNHUGYEXSyaqogw60/24/2024 1:49 PM EDT History of neck dissection History of head and neck radiation MR CERVICAL SPINE WO CARHOFVBPqlieam17/24/2024 1:15 PM EDT Metastatic cancer to cervical lymph nodes (HCC) History of radical neck dissection XR CHEST 2 AXLMJSrvrzwx93/05/2024 3:28 PM EST Sarcoidosis XR CHEST 2 BMCEABtazjbs27/17/2023 12:00 PM EDT Secondary and unspecified malignant neoplasm of lymph nodes of head, face and neck (HCC) Malignant (primary) neoplasm, unspecified (HCC) Other specified postprocedural states XR CHEST 2 GVVVFZwqoksx17/19/2021 GLUCOSE POCT WGEWIHEUPYUFhlkyvn73/27/2021 PET/CT SKULL BASE TO MID KKXBSIktcljs61/27/2021 CT SOFT TISSUE NECK W IV HIBBIJDTLjzwmqi25/24/2021 Localized enlarged lymph nodes Results * (ABNORMAL) CBC auto differential (02/24/2024 5:09 AM EDT)ComponentValueRef RangeTest MethodAnalysis TimePerformed AtPathologist EngmbvbgcFOW96.2(H)4.1 - 10.5 10*3/uL02/24/2024 5:40 AM [facility] CtrUNCORRECTED WHITE BLOOD COUNT13.2(H)4.1 - 10.5 10*3/uL02/24/2024 5:40 AM [facility] CtrRBC4.923.90 - 5.60002/24/2024 5:40 AM [facility] VutDCHDMUCWRN65.613.0 - 17.0 g/dL02/24/2024 5:40 AM [facility] IwaIMBGYPYRTY43.438.8 - 50.0 %02/24/2024 5:40 AM [facility] WedJJE87.083.5 - 101 fL02/24/2024 5:40 AM [facility] OohEYV06.727.5 - 35.2 pg02/24/2024 5:40 AM [facility] NqySZUT17.532.5 - 35.6 g/dL02/24/2024 5:40 AM [facility] CtrRED CELL DISTRIBUTION WIDTH, RDW14.512.0 - 14.8 % 02/24/2024 5:40 AM [facility] CtrPLATELET AVFNP374980 - 450 10*3/uL02/24/2024 5:40 AM [facility] CtrMEAN PLATELET VOLUME, MPV7.56.6 - 10.1 fL02/24/2024 5:40 AM [facility] CtrNEUTROPHILS, %82.5. %02/24/2024 5:40 AM [facility] Ctr LYMPHOCYTES, %8.9. %02/24/2024 5:40 AM [facility] Ctr MONOCYTE/MACROPHAGE, %8.1. %02/24/2024 5:40 AM [facility] CtrEOSINOPHILS, %0.1. %02/24/2024 5:40 AM [facility] Ctr BASOPHILS, %0.4. %02/24/2024 5:40 AM [facility] CtrNRBC0.00 - 0.5 /100{WBC}02/24/2024 5:40 AM [facility] CtrNEUTROPHILS 10.9(H)1.8 - 7.7 10*3/02/24/2024 5:40 AM [facility] Ctr LYMPHOCYTES1.21.00 - 4.8 10*3/02/24/2024 5:40 AM [facility] CtrMONOCYTES1.1(H)0.0 - 0.8 10*3/02/24/2024 5:40 AM [facility] CtrEOSINOPHILS0.00.0 - 0.45 10*3/02/24/2024 5:40 AM [facility] CtrBASOPHILS0.10.0 - 0.2 10*3/02/24/2024 5:40 AM [facility] CtrSpecimen (Source)Anatomical Location / LateralityCollection Method / VolumeCollection TimeReceived TimeBlood (Blood) 02/24/2024 5:09 AM EDT02/24/2024 5:28 AM EDT Narrative Authorizing ProviderResult TypeResult StatusBenjamin W Mursabi DOLAB BLOOD ORDERABLESFinal ResultPerforming OrganizationAddressCity/State/ZIP CodePhone Number [facility] [address] [place] [address], [facility] [address] [place] [address] * (ABNORMAL) Basic metabolic panel (02/24/2024 5:09 AM EDT)ComponentValueRef RangeTest MethodAnalysis TimePerformed AtPathologist UtktvyxpcQtgccze072(H)70 - 100 mg/dL02/24/2024 6:00 AM [facility] CtrComment: Random Glucose Reference Range is dependent on time and content of last meal. Glucose of more than 200 mg/dL in a nonstressed, ambulatory subject supports the diagnosis of Diabetes Mellitus. ADA recommended reference range PWK642 - 25 mg/dL02/24/2024 6:00 AM [facility] CtrCREATININE 1.150.70 - 1.30 mg/dL02/24/2024 6:00 AM [facility] Ctr ESTIMATED GFR> 60. 6:00 AM [facility] HjrPzqubn634 136 - 145 mmol/L02/24/2024 6:00 AM [facility] CtrPotassium, Bld4.23.5 - 5.1 mmol/L02/24/2024 6:00 AM [facility] Ctr Bvlfkbce16570 - 107 mmol/L02/24/2024 6:00 AM [facility] Ctr Carbon Lofndyq88.021.0 - 31.0 mmol/L02/24/2024 6:00 AM [facility] CtrAnion Gap10.26.0 - 15. 6:00 AM [facility] CtrCalcium8.5(L)8.6 - 10.3 mg/dL02/24/2024 6:00 AM [facility] CtrCREATININE CLR CALC NQHQCUGY921.7007 6:00 AM [facility] CtrSpecimen (Source)Anatomical Location / LateralityCollection Method / VolumeCollection TimeReceived MvgvYbcnk97/13/2024 5:09 AM EDT02/24/2024 5:28 AM EDT Narrative Authorizing ProviderResult TypeResult StatusBenjamin W Murcek DOLAB BLOOD ORDERABLESFinal ResultPerforming OrganizationAddressCity/State/ZIP CodePhone Number [facility] [address] [place] [address], [facility] [address] [place] [address] * PET/CT skull base to mid thigh (01/15/2024 3:03 PM EDT) Only the most recent of2 resultswithin the time period is included. Anatomical RegionLateralityModalityBodyComputed TomographySpecimen (Source) Anatomical Location / LateralityCollection Method / VolumeCollection Time Received Time01/15/2024 3:03 PM EDT Impressions 01/15/2024 3:22 PM EDT Findings suggest a primary malignancy of the left lingual tonsils with no metastatic disease along the left level 2 and level 3 as above. ? No evidence of distant lymphadenopathy or metastatic disease, as above. ? Impression dictated by: See Mancera M.D.01/15/2024 3:19 PM ? Dictation Location: [place] [address] ? Transcribed By: ? PWS ?01/15/24 1519 ? Dictated By: ?See Mancera II, MD ?01/15/24 1503 ? Signed By: <Electronically signed by See Mancera II, MD in [place]> ? 01/15/24 1519 Narrative 01/15/2024 3:22 PM EDT [facility] ?[facility] Main [place] ?[address] ? [place] [address] ?Nuclear Medicine Report ? Signed ? Patient: Saleski,Maximo W ?MR#: [id number] ?? [id number] ? : 1975 ?Acct:[id number] ? Age/Sex: 48 / M ?ADM Date: 06/03/24 ? Loc: PE ?Room: ?Type: REG CLI ?? Attending Dr: Khadar Hill DO ?? Copies to: Khadar Hlil,DO ?? See Mancera II, MD ? Ordering Provider: Khadar Hill,DO ?? Date of Service: 01/15/24 ?? PET/PET tumor subq tx strat sb-mt: left cervical adenopathy ? PET tumor subq tx strat sb-mt ??01/15/2024 11:12 AM ? SIGNS AND SYMPTOMS: Cervical lymphadenopathy, head and neck cancer ? PROTOCOL: PET images were obtained of the head and neck and from skull base to mid thigh after intravenous radiotracer administration. After attenuation correction of PET images and low dose CT of the same anatomy, fused PET CT images were generated and reconstructed in axial, sagittal, and coronal planes. ? COMPARISON: 01/07/2021, 01/05/2024, and 02/22/2021 ? RADIOPHARMACEUTICAL: 12.34 mCi of intravenous fluorine 18 FDG. ? BLOOD GLUCOSE: 88 mg/dL ? FINDINGS: ? Head and neck: ? Postsurgical changes are noted consistent with previous resection and lymph node dissection at the right lingual tonsils and within the right side of the neck. No residual right- sided lymphadenopathy is appreciated. ? There is an enlarged lymph node in the left level 2A measuring 1.5 x 2.4 cm in greatest axial dimension. There is increased FDG activity within maximum SUV of approximately 3.2. Additional prominent but smaller and less FDG avid lymph nodes are noted inferior to this. ? This is accompanied by soft tissue prominence in the left lingual tonsils partially effacing the left piriform sinus. There is increased FDG activity in this location with a maximum SUV of 3.2. ? Skull base to mid thigh: ? There is physiologic radiotracer accumulation within the brain, myocardium, liver, spleen, kidneys, ureters, bladder, and bowel. ? Mildly FDG avid left level 2 and level 3 lymphadenopathy is redemonstrated with focal abnormal increased FDG accumulation in the left lingual tonsils as seen on the head and neck portion of the exam. ? No evidence of distant lymphadenopathy or metastatic disease. ? There is a hiatal hernia with gastric fundus in the lower mediastinum. ? PET/PET tumor subq tx strat sb-mt ?? Procedure Note Radiology, Radiologist, - 01/15/2024 [facility] Main [place] [address] [place] [address] Nuclear Medicine Report Signed Patient: Maximo Ramos WMR#: [id number] : 1975Acct:[id number] Age/Sex: 48 / MADM Date: 01/15/24 Loc: Room:Type: [facility] Attending Dr: Khadar Hill DO Copies to: DO See Orellana II, MD Ordering Provider: Khadar Hill DO Date of Service: 01/15/24 PET/PET tumor subq tx strat sb-mt: leftcervical adenopathy PET tumor subq tx strat sb-mt 01/15/2024 11:12 AM SIGNS AND SYMPTOMS: Cervical lymphadenopathy, head and neck cancer PROTOCOL: PET images were obtained of the head and neck and from skullbase to mid thigh after intravenous radiotracer administration. After attenuation correction ofPET images and low dose CT of the same anatomy, fused PET CT images were generated and reconstructedin axial, sagittal, and coronal planes. COMPARISON: 01/07/2021, 01/05/2024, and 02/22/2021 RADIOPHARMACEUTICAL: 12.34 mCi of intravenous fluorine 18 FDG. BLOOD GLUCOSE: 88 mg/dL FINDINGS: Head and neck: Postsurgical changes are noted consistent with previous resection andlymph node dissection at the right lingual tonsils and within the right side of the neck. No residualright- sided lymphadenopathy is appreciated. There is an enlarged lymph node in the left level 2A measuring 1.5 x 2.4cm in greatest axial dimension. There is increased FDG activity within maximum SUV ofapproximately 3.2. Additional prominent but smaller and less FDG avid lymph nodes are noted inferior tothis. This is accompanied by soft tissue prominence in the left lingual tonsils partially effacing the left piriform sinus. There is increased FDG activity in this location witha maximum SUV of 3.2. Skull base to mid thigh: There is physiologic radiotracer accumulation within the brain,myocardium, liver, spleen, kidneys, ureters, bladder, and bowel. Mildly FDG avid left level 2 and level 3 lymphadenopathy is redemonstratedwith focal abnormal increased FDG accumulation in the left lingual tonsils as seen on the headand neck portion of the exam. No evidence [...] See Mancera M.D.01/15/2024 3:19 PM Dictation Location: [place] [id number] Transcribed By: [facility] 01/15/24 1519 Dictated By: See Mancera II, MD 01/15/24 1503 Signed By: <Electronically signed by See Mancera II, MD inOV> 01/15/24 1519 Authorizing ProviderResult TypeResult StatusBeneri Hill [facility] CT PROCEDURESFinal Result * GLUCOSE POCT GLUCOMETERS (01/15/2024 10:44 AM EDT)ComponentValueRef RangeTest MethodAnalysis TimePerformed AtPathologist SignatureGLUCOSE POC [id number] mg/dL01/15/2024 1:21 PM EDTFIRELANDSComment: Random Glucose Reference Range is dependent on time and content of last meal. Glucose of more than 200 mg/dL in a nonstressed, ambulatory subject supports the diagnosis of Diabetes Mellitus. Specimen (Source)Anatomical Location / LateralityCollection Method / Volume Collection TimeReceived ZawwJdyeh62/03/2024 10:44 AM EDT01/15/2024 1:20 PM EDT Narrative Authorizing ProviderResult TypeResult StatusBenjamin W Liz ENGLE BLOOD ORDERABLESFinal ResultPerforming OrganizationAddressCity/State/ZIP CodePhone Number [facility] [place] [address], * MR neck soft tissue only w and wo contrast (01/05/2024 1:49 PM EDT)Anatomical RegionLateralityModalityHead, NeckMagnetic ResonanceSpecimen (Source) Anatomical Location / LateralityCollection Method / VolumeCollection Time Received Time01/05/2024 3:06 PM EDT Impressions 01/05/2024 3:21 PM EDT Degenerative changes of the cervical spine as discussed. No evidence for metastatic disease to the cervical spine. Multiple abnormal left level 2a lymph nodes as discussed suspicious for recurrent/residual neoplastic disease. ELECTRONICALLY SIGNED BY: Carlos Dunham MD Narrative 01/05/2024 3:21 PM EDT EXAMINATION: MR CERVICAL SPINE WO CONTRAST, MR NECK SOFT TISSUE ONLY W AND WO CONTRAST HISTORY: ?? 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 Right-sided neck spasms. TECHNIQUE: Routine cervical spine MR protocol without gadolinium. Routine MRI of the soft tissue neck, with and without contrast. Given 20 mL of intravenous ProHance. COMPARISON: Concurrent MRI of the soft tissue neck. CT neck 01/04/2021. RESULT: CERVICAL: Counting reference: ??Craniocervical junction. ??Anatomic Variants: ??None. Alignment: ?? Alignment essentially anatomic. Craniocervical junction: ?Craniocervical junction is normal. Cord: ??The cervical spinal cord is within normal limits of signal intensity and morphology. Bone marrow signal/fracture: ?Fatty marrow signal throughout the cervical spine, which could relate to prior radiation. No pathologic marrow infiltration. Cervical soft tissues: ?Refer to below concurrent MRI of the soft tissue neck. C2-C3: Disc bulge, asymmetric to the right. No significant canal or foraminal narrowing. C3-C4: Tiny disc bulge. Facet/uncovertebral degenerative changes no significant canal or foraminal narrowing. C4-C5: Tiny disc bulge. Facet/uncovertebral degenerative changes. No significant canal or foraminalnarrowing. C5-C6: Facet/uncovertebral degenerative changes. No significant canal or foraminal narrowing. C6-C7: Broad-based disc bulge. Facet/uncovertebral degenerative changes. Mild bilateral foraminal narrowing without significant canal narrowing. C7-T1: No significant canal or foraminal narrowing. Upper thoracic spine: ??Visualized upper thoracic canal and foramina are without significant narrowing. MRI soft tissue neck: There are multiple abnormal enhancing nodules within the left neck at level 2a, with the largest measuring around 17 mm short axis. No distinct other abnormal cervical lymph nodes by size criteria. Nasal cavity and oral cavity grossly unremarkable. Pharyngeal mucosal space grossly unremarkable. ?? The vallecula and epiglottis are within normal limits and the pre-epiglottic fat is maintained. Parotid glands grossly unremarkable. Apparent atrophy or partial resection of the right submandibular gland. Left submandibular gland grossly unremarkable. ??Thyroid gland enhances symmetrically. Remainder of fascial spaces of the neck and contents grossly unremarkable. Visualized brain and orbits grossly unremarkable. Mild thickening in the visualized paranasal sinuses. Mastoid air cells grossly clear. No destructive osseous lesions. Degenerative changes cervical spine as above. 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 Right-sided neck spasms. TECHNIQUE: Routine cervical spine MR protocol without gadolinium. RoutineMRI of the soft tissue neck, with and without contrast. Given 20 mL ofintravenous ProHance. COMPARISON: Concurrent MRI of the soft tissue neck. CT neck 01/04/2021. RESULT: CERVICAL: Counting reference: Craniocervical junction. Anatomic Variants: None. Alignment: Alignment essentially anatomic. Craniocervical junction: Craniocervical junction is normal. Cord: The cervical spinal cord is within normal limits of signalintensity and morphology. Bone marrow signal/fracture: Fatty marrow signal throughout thecervical spine, which could relate to prior radiation. No pathologicmarrow infiltration. Cervical soft tissues: Refer to below concurrent MRI of the soft tissueneck. C2-C3: Disc bulge, asymmetric to the right. No significant canal orforaminal narrowing. C3-C4: Tiny disc bulge. Facet/uncovertebral degenerative changes nosignificant canal or foraminal narrowing. C4-C5: Tiny disc bulge. Facet/uncovertebral degenerative changes. Nosignificant canal or foraminal narrowing. C5-C6: Facet/uncovertebral degenerative changes. No significant canal or foraminal narrowing. C6-C7: Broad-based disc bulge. Facet/uncovertebral degenerative changes.Mild bilateral foraminal narrowing without significant canal narrowing. C7-T1: No significant canal or foraminal narrowing. Upper thoracic spine: Visualized upper thoracic canal and foramina arewithout significant narrowing. MRI soft tissue neck: There are multiple abnormal enhancing nodules within the left neck atlevel 2a, with the largest measuring around 17 mm short axis. No distinctother abnormal cervical lymph nodes by size criteria. Nasal cavity and oral cavity grossly unremarkable. Pharyngeal mucosalspace grossly unremarkable. The vallecula and epiglottis are withinnormal limits and the pre-epiglottic fat is maintained. Parotid glandsgrossly unremarkable. Apparent atrophy or partial resection of the rightsubmandibular gland. Left submandibular gland grossly unremarkable.Thyroid gland enhances symmetrically. Remainder of fascial spaces of theneck and contents grossly unremarkable. Visualized brain and orbits grossly unremarkable. Mild thickening in the visualized paranasal sinuses. Mastoid air cells grossly clear. No destructive osseous lesions. Degenerative changes cervical spine asabove. IMPRESSION: Degenerative changes of the cervical spine as discussed. No evidence for metastatic disease to the cervical spine. Multiple abnormal left level 2a lymph nodes as discussed suspicious for recurrent/residual neoplastic disease. ELECTRONICALLY SIGNED BY: Carlos Dunham MD Authorizing ProviderResult TypeResult StatusBenjamin W [facility] Centers[facility] MRI PROCEDURESFinal Result * MR cervical spine wo contrast (01/05/2024 1:15 PM EDT)Anatomical Region LateralityModalitySpine, C-spineMagnetic ResonanceSpecimen (Source)Anatomical Location / LateralityCollection Method / VolumeCollection TimeReceived Time 01/05/2024 3:06 PM EDT Impressions 01/05/2024 3:21 PM EDT Degenerative changes of the cervical spine as discussed. No evidence for metastatic disease to the cervical spine. Multiple abnormal left level 2a lymph nodes as discussed suspicious for recurrent/residual neoplastic disease. ELECTRONICALLY SIGNED BY: Carlos Dunham MD [facility] 01/05/2024 3:21 PM EDT EXAMINATION: MR CERVICAL SPINE WO CONTRAST, MR NECK SOFT TISSUE ONLY W AND WO CONTRAST HISTORY: ?? 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 Right-sided neck spasms. TECHNIQUE: Routine cervical spine MR protocol without gadolinium. Routine MRI of the soft tissue neck, with and without contrast. Given 20 mL of intravenous ProHance. COMPARISON: Concurrent MRI of the soft tissue neck. CT neck 01/04/2021. RESULT: CERVICAL: Counting reference: ??Craniocervical junction. ??Anatomic Variants: ??None. Alignment: ?? Alignment essentially anatomic. Craniocervical junction: ?Craniocervical junction is normal. Cord: ??The cervical spinal cord is within normal limits of signal intensity and morphology. Bone marrow signal/fracture: ?Fatty marrow signal throughout the cervical spine, which could relate to prior radiation. No pathologic marrow infiltration. Cervical soft tissues: ?Refer to below concurrent MRI of the soft tissue neck. C2-C3: Disc bulge, asymmetric to the right. No significant canal or foraminal narrowing. C3-C4: Tiny disc bulge. Facet/uncovertebral degenerative changes no significant canal or foraminal narrowing. C4-C5: Tiny disc bulge. Facet/uncovertebral degenerative changes. No significant canal or foraminalnarrowing. C5-C6: Facet/uncovertebral degenerative changes. No significant canal or foraminal narrowing. C6-C7: Broad-based disc bulge. Facet/uncovertebral degenerative changes. Mild bilateral foraminal narrowing without significant canal narrowing. C7-T1: No significant canal or foraminal narrowing. Upper thoracic spine: ??Visualized upper thoracic canal and foramina are without significant narrowing. MRI soft tissue neck: There are multiple abnormal enhancing nodules within the left neck at level 2a, with the largest measuring around 17 mm short axis. No distinct other abnormal cervical lymph nodes by size criteria. Nasal cavity and oral cavity grossly unremarkable. Pharyngeal mucosal space grossly unremarkable. ?? The vallecula and epiglottis are within normal limits and the pre-epiglottic fat is maintained. Parotid glands grossly unremarkable. Apparent atrophy or partial resection of the right submandibular gland. Left submandibular gland grossly unremarkable. ??Thyroid gland enhances symmetrically. Remainder of fascial spaces of the neck and contents grossly unremarkable. Visualized brain and orbits grossly unremarkable. Mild thickening in the visualized paranasal sinuses. Mastoid air cells grossly clear. No destructive osseous lesions. Degenerative changes cervical spine as above. 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 Right-sided neck spasms. TECHNIQUE: Routine cervical spine MR protocol without gadolinium. RoutineMRI of the soft tissue neck, with and without contrast. Given 20 mL ofintravenous ProHance. COMPARISON: Concurrent MRI of the soft tissue neck. CT neck 01/04/2021. RESULT: CERVICAL: Counting reference: Craniocervical junction. Anatomic Variants: None. Alignment: Alignment essentially anatomic. Craniocervical junction: Craniocervical junction is normal. Cord: The cervical spinal cord is within normal limits of signalintensity and morphology. Bone marrow signal/fracture: Fatty marrow signal throughout thecervical spine, which could relate to prior radiation. No pathologicmarrow infiltration. Cervical soft tissues: Refer to below concurrent MRI of the soft tissueneck. C2-C3: Disc bulge, asymmetric to the right. No significant canal orforaminal narrowing. C3-C4: Tiny disc bulge. Facet/uncovertebral degenerative changes nosignificant canal or foraminal narrowing. C4-C5: Tiny disc bulge. Facet/uncovertebral degenerative changes. Nosignificant canal or foraminal narrowing. C5-C6: Facet/uncovertebral degenerative changes. No significant canal or foraminal narrowing. C6-C7: Broad-based disc bulge. Facet/uncovertebral degenerative changes.Mild bilateral foraminal narrowing without significant canal narrowing. C7-T1: No significant canal or foraminal narrowing. Upper thoracic spine: Visualized upper thoracic canal and foramina arewithout significant narrowing. MRI soft tissue neck: There are multiple abnormal enhancing nodules within the left neck atlevel 2a, with the largest measuring around 17 mm short axis. No distinctother abnormal cervical lymph nodes by size criteria. Nasal cavity and oral cavity grossly unremarkable. Pharyngeal mucosalspace grossly unremarkable. The vallecula and epiglottis are withinnormal limits and the pre-epiglottic fat is maintained. Parotid glandsgrossly unremarkable. Apparent atrophy or partial resection of the rightsubmandibular gland. Left submandibular gland grossly unremarkable.Thyroid gland enhances symmetrically. Remainder of fascial spaces of theneck and contents grossly unremarkable. Visualized brain and orbits grossly unremarkable. Mild thickening in the visualized paranasal sinuses. Mastoid air cells grossly clear. No destructive osseous lesions. Degenerative changes cervical spine asabove. IMPRESSION: Degenerative changes of the cervical spine as discussed. No evidence for metastatic disease to the cervical spine. Multiple abnormal left level 2a lymph nodes as discussed suspicious for recurrent/residual neoplastic disease. ELECTRONICALLY SIGNED BY: Carlos Dunham MD Authorizing ProviderResult TypeResult Statuselizabeth Hassan [facility] MRI PROCEDURESFinal Result * XR chest 2 views (09/18/2023 3:28 PM EST) Only the most recent of3 resultswithin the time period is included. Anatomical RegionLateralityModalityChestRadiographic ImagingSpecimen (Source) Anatomical Location / LateralityCollection Method / VolumeCollection Time Received Time09/18/2023 4:43 PM EST Impressions 09/18/2023 4:44 PM EST No radiographic evidence of acute intrathoracic process. ELECTRONICALLY SIGNED BY: Leo Cobian DO Narrative 09/18/2023 4:44 PM EST EXAMINATION: XR CHEST 2 VIEWS HISTORY: Sarcoidosis. History of throat cancer. History of right-sided pneumothorax. TECHNIQUE: Frontal and lateral views of the chest. COMPARISON: Chest radiograph December 28, 2022 FINDINGS: Cardiomediastinal silhouette is within normal limits. No pneumothorax, pleural effusion, or consolidation. No acute osseous abnormality. Procedure Note Leo Cobian DO - 09/18/2023 EXAMINATION: XR CHEST 2 VIEWS HISTORY: Sarcoidosis. History of throat cancer. History of right-sided pneumothorax. TECHNIQUE: Frontal and lateral views of the chest. COMPARISON: Chest radiograph December 28, 2022 FINDINGS: Cardiomediastinal silhouette is within normal limits. No pneumothorax,pleural effusion, or consolidation. No acute osseous abnormality. IMPRESSION: No radiographic evidence of acute intrathoracic process. ELECTRONICALLY SIGNED BY: Leo Cobian DO Authorizing ProviderResult TypeResult StatusBeelizabeth W Manuelsabi [facility] XR PROCEDURESFinal Result * GLUCOSE POCT GLUCOMETERS (01/07/2021)ComponentValueRef RangeTest Method Analysis TimePerformed AtPathologist SignatureGLUCOSE POC [id number] LEGACY EXTERNAL LABComment: Random Glucose Reference Range is dependent on time and content of last meal. Glucose of more than 200 mg/dL in a nonstressed, ambulatory subject supports the diagnosis of Diabetes Mellitus. Specimen (Source)Anatomical Location / LateralityCollection Method / Volume Collection TimeReceived Time01/07/2021 Narrative Authorizing ProviderResult TypeResult StatusBenjamin W Liz DOECW LABSFinal ResultPerforming OrganizationAddressCity/State/ZIP CodePhone Number [facility] * CT soft tissue neck w IV contrast (01/04/2021)Anatomical RegionLaterality ModalityHead, NeckComputed TomographySpecimen (Source)Anatomical Location / LateralityCollection Method / VolumeCollection TimeReceived Time01/04/2021 Narrative 01/04/2021 12:00 AM EDT PERFORMED AT [facility] LOCATION:[place] [address] Comparison: none Neck CT was obtained from the thoracic arch to the skull after IV contrast administration. ??Axial scans were obtained, sagittal and coronal reformats were performed. Findings: The visualized intracranial portions are unremarkable. The orbits are within normal limits. ??The close intact. ??There are no intra-or extraconal lesions. The paranasal sinuses are well aerated. ??There are no acute changes in the mastoid air cells are the middle ear structures. The nasopharynx and oropharynx are within normal limits. The epiglottis is not enlarged. ??The valleculae are symmetric. The true false vocal cords are within normal limits, the airway is patent. The parotid and submandibular glands are normal in size and enhancement without focal lesions. In the region of concern on the right side of the neck there are 2 well-defined inhomogeneously enhancing masses. ??The more superior mass has a diameter of 3.4 x 3.5 x 2.9 cm. ??The more inferior mass measures 1.9 x 2.2 x 3.2 cm. ??The mass is most likely represent enlarged level 2A lymph nodes. ??There is mild mass-effect on the adjacent structures without direct invasion. Otherwise there is no other lymphadenopathy on either side. The great vessels of the neck follow normal course without evidence of aneurysm or dissection. The thyroid gland is normal in size and enhancement. The visualized portions of the lung apices are within normal limits. There are no acute osseous changes. Impression: There are 2 well-defined masses in the region of concern along the right side of the neck which most likely represent enlarged level 2A lymph nodes measuring up to 3.5 cm in greatest diameter. ??The lymph nodes may be reactive or may be involved with tumor or infiltrative process such as lymphoma. Report reported and signed by APARNA HILL on 01/05/2021 1027 Procedure Note CONVERSION, GENERIC - 12/29/2022 PERFORMED AT [facility] LOCATION:[place] [id number] Comparison: none Neck CT was obtained from the thoracic arch to the skull after IV contrast administration. Axial scans were obtained, sagittal and coronal reformats wereperformed. Findings: The visualized intracranial portions are unremarkable. The orbits are within normal limits. The close intact. There are nointra-or extraconal lesions. The paranasal sinuses are well aerated. There are no acute changes in themastoid air cells are the middle ear structures. The nasopharynx and oropharynx are within normal limits. The epiglottis is not enlarged. The valleculae are symmetric. The true false vocal cords are within normal limits, the airway is patent. The parotid and submandibular glands are normal in size and enhancementwithout focal lesions. In the region of concern on the right side of the neck there are 2well-defined inhomogeneously enhancing masses. The more superior mass has a diameter of 3.4 x 3.5 x2.9 cm. The more inferior mass measures 1.9 x 2.2 x 3.2 cm. The mass is mostlikely represent enlarged level 2A lymph nodes. There is mild mass-effect on the adjacent structures without direct invasion. Otherwise there is no other lymphadenopathy on either side. The great vessels of the neck follow normal course without evidence ofaneurysm or dissection. The thyroid gland is normal in size and enhancement. The visualized portions of the lung apices are within normal limits. There are no acute osseous changes. Impression: There are 2 well-defined masses in the region of concern along the rightside of the neck which most likely represent enlarged level 2A lymph nodesmeasuring up to 3.5 cm in greatest diameter. The lymph nodes may be reactive or maybe involved with tumor or infiltrative process such as lymphoma. Report reported and signed by APARNA HILL on 01/05/2021 1027 Authorizing ProviderResult TypeResult StatusBeneri Hill DOI CT PROCEDURESFinal Result Visit Diagnoses DiagnosisStart Date Malignant (primary) neoplasm, unspecified (HCC) 02/12/2021 Malignant neoplasm of major salivary gland, unspecified (HCC) 02/12/2021 Encounter for preprocedural laboratory examination 02/18/2021 Metastatic cancer to cervical lymph nodes (HCC) 03/15/2023 History of radical neck dissection 03/15/2023 Salivary gland cancer (HCC) Malignant neoplasm of salivary gland, unspecified 03/15/2023 Change in voice Other voice and resonance disorders 03/15/2023 Metastatic cancer to cervical lymph nodes (HCC) 06/14/2023 History of neck dissection 06/14/2023 Sarcoidosis 09/18/2023 History of neck dissection 09/18/2023 Sarcoidosis 09/18/2023 History of neck dissection 09/18/2023 Salivary gland cancer (HCC) Malignant neoplasm of salivary gland, unspecified 09/18/2023 Salivary gland cancer (HCC) Malignant neoplasm of salivary gland, unspecified 12/18/2023 History of neck dissection 12/18/2023 History of head and neck radiation 12/18/2023 Torticollis Torticollis, unspecified 12/18/2023 Metastatic cancer to cervical lymph nodes (HCC) 2023 History of radical neck dissection 2023 History of neck dissection 01/05/2024 History of head and neck radiation 01/05/2024 Metastatic cancer to cervical lymph nodes (HCC) 01/05/2024 History of radical neck dissection 01/05/2024 Cervical lymphadenopathy Enlargement of lymph nodes 01/10/2024 Malignant neoplasm of head, face, and neck (HCC) Malignant neoplasm of head, face, and neck 01/10/2024 Cervical lymphadenopathy Enlargement of lymph nodes 01/10/2024 History of salivary gland cancer 01/10/2024 Salivary gland cancer (HCC) Malignant neoplasm of salivary gland, unspecified 01/17/2024 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) Secondary and unspecified malignant neoplasm of lymph nodes of head, face, and neck 02/23/2024 Status post neck dissection 02/26/2024 Salivary gland cancer (HCC) Malignant neoplasm of salivary gland, unspecified 02/26/2024 Salivary gland cancer (HCC) Malignant neoplasm of salivary gland, unspecified 03/04/2024 Metastatic cancer to cervical lymph nodes (HCC) 03/04/2024 History of neck dissection 03/04/2024 Salivary gland cancer (HCC) Malignant neoplasm of salivary gland, unspecified 03/19/2024 Metastatic cancer to cervical lymph nodes (HCC) 04/22/2024 History of neck dissection 04/22/2024 Metastatic cancer to cervical lymph nodes (HCC) 05/27/2024 Salivary gland cancer (HCC) Malignant neoplasm of salivary gland, unspecified 05/27/2024 Salivary gland cancer (HCC) Malignant neoplasm of salivary gland, unspecified 07/01/2024 Metastatic cancer to cervical lymph nodes (HCC) 07/01/2024 Metastatic cancer to cervical lymph nodes (HCC) 08/12/2024 Salivary gland cancer (HCC) Malignant neoplasm of salivary gland, unspecified 08/12/2024 Encounter for follow-up surveillance of salivary gland cancer 09/25/2024 Metastatic cancer to cervical lymph nodes (HCC) 09/25/2024 History of neck dissection 09/25/2024 Metastatic cancer to cervical lymph nodes (HCC) 11/13/2024 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, face, or neck with unknown primary site (HCC) 11/13/2024 Metastatic cancer to cervical lymph nodes (HCC) 01/08/2025 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, face, or neck with unknown primary site (HCC) 01/08/2025 History of neck dissection 01/08/2025 Salivary gland cancer (HCC) Malignant neoplasm of salivary gland, unspecified 02/26/2025 History of neck dissection 02/26/2025 Metastatic cancer to cervical lymph nodes (HCC) 06/04/2025 Salivary gland cancer (HCC) Malignant neoplasm of salivary gland, unspecified 06/04/2025 History of neck dissection 06/04/2025 Care Teams Team MemberRelationshipSpecialtyStart DateEnd Date Bobbi Vigil MD [address] [place] [address] [facility] - [facility]04/22/24 Khadar Hill DO [address] [place] [address] Otolaryngology12/18/23
--- OUTSIDE RECORDS SUMMARY | 2025-06-23 15:10 | XMS_ITS | Clinical Summary ---
Author Organization [facility] Address [address] [place] [address] Care Team Providers Care Manager Of [employer] Name Role Phone Bobbi Vigil MD Primary Care Provider [phone] Allergies No known active allergies Medications No known medications Active Problems ProblemNoted DateDiagnosed DateElevated qqxqxzul35/29/2025 Encounters DateTypeDepartmentCare RrfmCotwfdbyebz52/30/8458Bswcri97/29/2025 12:33 PM EDT - 06/12/2025 1:45 PM EDTHospital Encounter [facility] [address] [place] [address] uBbba Urias MD Alhyari, Abdal Rahman M, MBBS Elevated troponin Discharge Disposition: Home or Self Carefrom Last 3 Months Social History Tobacco UseTypesPacks/DayYears UsedDateSmoking Tobacco: NeverSmokeless [...] Last Filed Vital Signs Vital SignReadingTime TakenCommentsBlood Ibxaqppn063/8706/12/2025 12:50 PM EDT Lkeca061106/12/2025 12:50 PM NVYUplcrqcsvjc20 ??C (98.6 ??F)06/12/2025 12:50 PM EDTRespiratory Usxr3864 12:50 PM EDTOxygen Gbjathgfca90%06/12/2025 12:50 PM EDTInhaled Oxygen Concentration--Gezqgh703 kg (233 lb 11 oz)06/12/2025 4:30 AM SMVUkvdnl319.8 cm (5' 10 )06/11/2025 9:43 PM EDTBody Mass Index33.53 06/11/2025 9:43 PM EDT Plan of Treatment Health MaintenanceDue DateLast DoneCommentsHEPATITIS C VIRUS YSAXEAVOL85/09/1978 INGQEKV75 1977HIV SCREENING NEMWVWRHHC49/09/1993TDAP (ADULT)1996LIPID LNTGNROKW13/09/2018COLORECTAL CANCER SCREENING VWGJCJVONS69/27/521571/ COVID-19 VACCINE ( season)503/03/2021, 10/01/2020INFLUENZA VACCINE (#1)2025HEP B RREHFEPBhlsencct72/14/2002, 11/12/2001, 08/28/2001 PNEUMOCOCCAL VACCINE SERIESAged OutNo longer eligible based on patient's age to complete this topic Procedures Procedure NamePriorityDate/TimeAssociated DiagnosisCommentsTROPONINRoutine 06/12/2025 12:23 PM EDT NUC MYOCARD PERF STRESS MIBI - REST, STRESS, AND WBGICVX8806/12/2025 11:28 AM EDT LA ECHOCARDIOGRAM W/O 5BMzugujj47/30/2025 10:36 AM EDT YOZtnpnjl21/30/2025 4:02 AM EDT CHEM 7 (LYTES,BUN,CREA,GLUC)Sykzvqy3106/12/2025 4:02 AM EDT CBC,EXAGZLAJKNaozcxh98/30/2025 4:02 AM EDT PXBXSPSXCyevycx17/30/2025 4:02 AM EDT CARDIO-PULMONARY EXERCISE STUDY (SCANNED)06/12/2025MONITOR HYFOVEA9506/12/2025 SSDTQETSVuxhiqc72/29/2025 9:58 PM EDT VENOUS BLOOD NQMMfbxmox36/29/2025 7:41 PM EDT VXXmcmens93/29/2025 4:38 PM EDT OBQPFHMKXVEQ61/29/2025 4:38 PM EDT LACTATE, XYAZKKekhkxo27/29/2025 4:13 PM EDT BASIC METABOLIC WTORWWrukxzm96/29/2025 4:[address] ANEURYSM STUDY WITH CONTRAST CHEST/ABDOMEN/RZNGQHGMHI08/29/2025 2:14 PM EDT URINE FTEJUHOZQGJAOEW30/29/2025 1:46 PM EDT URINE DIPSTICK WITH REFLEX FLWFSGKZDKPWIT18/29/2025 1:46 PM EDT URINE NYRBOEWZSEH28/29/2025 1:46 PM EDT VENOUS BLOOD LEOYFBU9906/11/2025 1:31 PM EDT LACTATE, YXNRAEFNP16/29/2025 1:[address] HEAD WITHOUT QPRMOVNJSKXR99/29/2025 1:10 PM EDT NYDVYCT4506/11/2025 12:49 PM OBBNIDVCNMNCABLZ71/29/2025 12:41 PM EDT HEPATIC FUNCTION XBFVWBSUU18/29/2025 12:41 PM EDT ALCOHOL (ETHANOL),MYTSBROUE32/29/2025 12:41 PM EDT ACETONE, SERUM, HUYYNDXZBHP96/29/2025 12:41 PM EDT MANUAL QXRFFuwqekw33/29/2025 12:41 PM EDT CBC AND ELECTRONIC SPWUAFML13/29/2025 12:41 PM EDT UZNWVI0106/11/2025 12:41 PM EDT DOWSZCY9706/11/2025 12:41 PM EDT B-TYPE NATRIURETIC PEPTIDE (BRAIN)STAT1 12:41 PM EDT XCSQZZHGHJOY92/29/2025 12:41 PM EDT LACTATE, MXRIWNFJA43/29/2025 12:41 PM EDT BASIC METABOLIC NHIEDRSUL37/29/2025 12:41 PM EDT CBC, EDIF, IWRGJBZXGZHM14/29/2025 12:41 PM EDT from Last 3 Months Results * (ABNORMAL) TROPONIN (06/12/2025 12:23 PM EDT) Only the most recent of5 resultswithin the time period is included. ComponentValueRef RangeTest MethodAnalysis TimePerformed AtPathologist Signature Troponin I0.051(H)<0.033 ng/mL06/12/2025 12:56 PM EDTCLINICAL LABORATORY, [facility] Comment: 0.034-0.110 ??INDETERMINATE >0.120 DIAGNOSTIC Specimen (Source)Anatomical Location / LateralityCollection Method / Volume Collection TimeReceived TimeBloodVenipuncture / Rezbutb1806/12/2025 12:23 PM EDT 06/12/2025 12:26 PM EDT Narrative Authorizing ProviderResult TypeResult StatusAbdal Ramon OSBORNEBSCHEMISTRY ORDERABLESFinal ResultPerforming OrganizationAddressCity/State/ZIP CodePhone Number CLINICAL LABORATORY, [place] [address] [place] [address] * NUC MYOCARD PERF STRESS MIBI - REST, STRESS, AND ECG (06/12/2025 11:28 AM EDT) Anatomical RegionLateralityModalityChestNuclear MedicineSpecimen (Source) Anatomical Location / LateralityCollection Method / VolumeCollection Time Received Time Narrative 06/12/2025 11:11 AM EDT Dioni Monsalve MD 06/12/2025 11:21 AM ??Gated Lexiscan Myocardial Perfusion Scintigraphy Same Day Rest/Stress Procedure Maximo Josbridger 1975 49 y.o. male 06/11/2025 12:33 PM [...] stress induced ischemia. Authorizing ProviderResult TypeResult StatusBubba Urias MDWI ORDERABLESFinal Result * LA ECHOCARDIOGRAM W/O 3D (06/12/2025 10:36 AM EDT)Anatomical [...] 0.74 ?RAP ?8 ? mmHg MV [place] ??4.24 ?m/s?AV max PG ? 6.89 ?mmHg [...] Dimensionless Index 0.74 RAP8 mmHg MV [place] 4.24 m/s? AV max PG 6.89 mmHg [...] StatusBubba BUITRAGO ORDERABLESEdited Result - Final * CBC,PLATELETS (06/12/2025 4:02 AM EDT)ComponentValueRef RangeTest Method Analysis TimePerformed AtPathologist SignatureWBC Count10.44.5 - 11.0 K/uL 06/12/2025 4:13 AM EDTCLINICAL LABORATORY, MCHRBC Count4.99Male: 4.2-5.6, Female: 3.8-5.3 M/uL06/12/2025 4:13 AM EDTCLINICAL LABORATORY, MCHHemoglobin 14.413.1 - 17.2 g/dL06/12/2025 4:13 AM EDTCLINICAL LABORATORY, MCHHematocrit 42.839.0 - 50.0 %06/12/2025 4:13 AM EDTCLINICAL LABORATORY, MCHMean Cell Tuqqmx15.880.0 - 99.0 fL06/12/2025 4:13 AM EDTCLINICAL LABORATORY, MCHMean Cell Hgb28.9Male: 27.0-35.0, Female: 27.0-34.0 pg06/12/2025 4:13 AM EDT CLINICAL LABORATORY, MCHMean Cell Hgb Conc33.632.0 - 36.0 g/dL06/12/2025 4:13 AM EDTCLINICAL LABORATORY, MCHRBC Jxqyrrlwmamr13/30/2025 4:13 AM EDTCLINICAL LABORATORY, MCHPlatelet Svank076394 - 400 K/uL06/12/2025 4:13 AM EDTCLINICAL LABORATORY, MCHMean Platelet Volume8.67.5 - 11.2 fL06/12/2025 4:13 AM EDT CLINICAL LABORATORY, MCHSpecimen (Source)Anatomical Location / Laterality Collection Method / VolumeCollection TimeReceived TimeBloodVenipuncture / Bqqefis8206/12/2025 4:02 AM EDT1 4:10 AM EDT Narrative Authorizing ProviderResult TypeResult StatusBubba Urias MDHEMATOLOGY ORDERABLES Final ResultPerforming OrganizationAddressCity/State/ZIP CodePhone Number CLINICAL LABORATORY, [facility] [address] [place] [address] * (ABNORMAL) CHEM 7 (LYTES,BUN,CREA,GLUC) (06/12/2025 4:02 AM EDT)ComponentValue Ref RangeTest MethodAnalysis TimePerformed AtPathologist QlqdgvjvyRYS600 - 21 mg/dL06/12/2025 4:32 AM EDTCLINICAL LABORATORY, PJGLzjbly544785 - 145 mmol/L 06/12/2025 4:32 AM EDTCLINICAL LABORATORY, MCHPotassium4.23.5 - 5.1 mmol/L 06/12/2025 4:32 AM EDTCLINICAL LABORATORY, LREMglilafo134(H)98 - 107 mmol/L 06/12/2025 4:32 AM EDTCLINICAL LABORATORY, [facility]ENTERCarbon Pwygtms59(L)22 - 29 mmol/L1 4:32 AM EDTCLINICAL LABORATORY, HVCNifxvvy2039 - 105 mg/dL 06/12/2025 4:32 AM EDTCLINICAL LABORATORY, MCHCreatinine1.60(H)0.72 - 1.25 mg/dL06/12/2025 4:32 AM EDTCLINICAL LABORATORY, MCHAnion Quh50jbbt/L1 4:32 AM EDTCLINICAL LABORATORY, MCHBUN/CREA Fhunt1690/30/2025 4:32 AM EDT CLINICAL LABORATORY, MCHOsmolality (Calc)300mOsm/kg06/12/2025 4:32 AM EDT CLINICAL LABORATORY, MCHEstimated GFR, Uwolofhi29jP/min/1.73sqM 06/12/2025 4:32 AM EDTCLINICAL LABORATORY, MCHEstimated GFR,Non Ruwdobhp39zC/min/1.50ebG86 4:32 AM EDTCLINICAL LABORATORY, MCHSpecimen (Source)Anatomical Location / LateralityCollection Method / VolumeCollection TimeReceived TimeBloodVenipuncture / Aewxztz2806/12/2025 4:02 AM EDT1 4:10 AM EDT Narrative Authorizing ProviderResult TypeResult StatusNico Adonay MDCHEMISTRY ORDERABLES Final ResultPerforming OrganizationAddressCity/State/ZIP CodePhone Number CLINICAL LABORATORY, [place] [address] * (ABNORMAL) CK (06/12/2025 4:02 AM EDT) Only the most recent of3 resultswithin the time period is included. ComponentValueRef RangeTest MethodAnalysis TimePerformed AtPathologist Signature Creatine Kinase8,001(H)30 - 200 U/L1 1:18 PM EDTCLINICAL LABORATORY, [facility]ENTERSpecimen (Source)Anatomical Location / LateralityCollection Method / Volume Collection TimeReceived TimeBloodVenipuncture / Wpresen3406/12/2025 4:02 AM EDT 06/12/2025 12:49 PM EDT Narrative Authorizing ProviderResult TypeResult StatusAbdal Ramon Doyle MBBSCHEMISTRY ORDERABLESFinal ResultPerforming OrganizationAddressCity/State/ZIP CodePhone Number CLINICAL LABORATORY, [place] [address] * CARDIO-PULMONARY EXERCISE STUDY (SCANNED) (06/12/2025)Specimen (Source) Anatomical Location / LateralityCollection Method / VolumeCollection Time Received Time06/12/2025 Narrative Authorizing ProviderResult TypeResult StatusOther Other OTPFT ORDERABLESFinal Result * MONITOR REPORTS (06/12/2025)Specimen (Source)Anatomical Location / Laterality Collection Method / VolumeCollection TimeReceived Time06/12/2025 Narrative Authorizing ProviderResult TypeResult StatusOther Other OTECG ORDERABLESFinal Result * (ABNORMAL) VENOUS BLOOD GAS (06/11/2025 7:41 PM EDT) Only the most recent of2 resultswithin the time period is included. ComponentValueRef RangeTest MethodAnalysis TimePerformed AtPathologist Signature pH, Venous7.27(L)7.32 - 7.431 7:48 PM EDTCLINICAL LABORATORY, MCHpCO2, Vwrzte2782 - 55 mmHg06/11/2025 7:48 PM EDTCLINICAL LABORATORY, MCHpO2, Aymzur25 No normal range established mmHg06/11/2025 7:48 PM EDTCLINICAL LABORATORY, [facility] HCO3, Jqhena18Tc normal range established mmol/L1 7:48 PM EDTCLINICAL LABORATORY, MCHO2 Vtwbemtbuk81Nc normal range established %06/11/2025 7:48 PM EDTCLINICAL LABORATORY, [facility] CENTERBase Excess-6.3No normal range established mmol/L 06/11/2025 7:48 PM EDTCLINICAL LABORATORY, [facility]ENTERSpecimen (Source)Anatomical Location / LateralityCollection Method / VolumeCollection TimeReceived TimeBlood VENOUS / UnknownVenipuncture / Sqybstx6506/11/2025 7:41 PM EDT1 7:44 PM EDT Narrative Authorizing ProviderResult TypeResult StatusBubba Urias MDBLOOD GASFinal Result Performing OrganizationAddressCity/State/ZIP CodePhone Number CLINICAL LABORATORY, [place] [address] * LACTATE, BLOOD (06/11/2025 4:13 PM EDT) Only the most recent of3 resultswithin the time period is included. ComponentValueRef RangeTest MethodAnalysis TimePerformed AtPathologist Signature Lactic Acid1.60.5 - 2.2 mmol/L1 4:35 PM EDTCLINICAL LABORATORY, [facility] Specimen (Source)Anatomical Location / LateralityCollection Method / Volume Collection TimeReceived TimeBloodVenipuncture / Hkimhwd7706/11/2025 4:13 PM EDT 06/11/2025 4:16 PM EDT Narrative Authorizing ProviderResult TypeResult Sammie Urias MDCHEMISTRY ORDERABLES Final ResultPerforming OrganizationAddressCity/State/ZIP CodePhone Number CLINICAL LABORATORY, [address] [address] * (ABNORMAL) BASIC METABOLIC PANEL (06/11/2025 4:13 PM EDT) Only the most recent of2 resultswithin the time period is included. ComponentValueRef RangeTest MethodAnalysis TimePerformed AtPathologist Signature Vamdie534854 - 145 mmol/L1 4:44 PM EDTCLINICAL LABORATORY, [facility] CENTERPotassium 3.83.5 - 5.1 mmol/L1 4:44 PM EDTCLINICAL LABORATORY, MCHComment: Specimen integrity checked. Repeated and verified Iaatkcei411(H)98 - 107 mmol/L1 4:44 PM EDTCLINICAL LABORATORY, [facility] Carbon Nmbhfbt04(L)22 - 29 mmol/L1 4:44 PM EDTCLINICAL LABORATORY, MCH DPA097 - 21 mg/dL06/11/2025 4:44 PM EDTCLINICAL LABORATORY, MCHCreatinine1.63(H) 0.72 - 1.25 mg/dL06/11/2025 4:44 PM EDTCLINICAL LABORATORY, JANTcpawfw758(H)70 - 105 mg/dL06/11/2025 4:44 PM EDTCLINICAL LABORATORY, MCHCalcium8.1(L)8.4 - 10.2 mg/dL06/11/2025 4:44 PM EDTCLINICAL LABORATORY, MCHAnion Xhl87amvk/L1 4:44 PM EDTCLINICAL LABORATORY, MCHBUN/CREA Rwofk2058/29/2025 4:44 PM EDT CLINICAL LABORATORY, MCHOsmolality (Calc)293mOsm/kg06/11/2025 4:44 PM EDT CLINICAL LABORATORY, MCHEstimated GFR, Rzwsbgtm79kP/min/1.73sqM 06/11/2025 4:44 PM EDTCLINICAL LABORATORY, MCHEstimated GFR,Non 46mL/min/1.52oaO34 4:44 PM EDTCLINICAL LABORATORY, MCHSpecimen (Source) Anatomical Location / LateralityCollection Method / VolumeCollection Time Received TimeBloodVenipuncture / Negeayp7306/11/2025 4:13 PM EDT1 4:16 PM EDT Narrative Authorizing ProviderResult TypeResult StatusNico Adonay MDCHEMISTRY ORDERABLES Final ResultPerforming OrganizationAddressCity/State/ZIP CodePhone Number CLINICAL LABORATORY, [place] [address] [place] [address] * CT ANEURYSM STUDY WITH CONTRAST CHEST/ABDOMEN/PELVIS [...] appendix Narrative 06/11/2025 2:52 PM EDT EXAM: [facility] CTA CHEST, CTA ABDOMEN, CTA PELVIS WITH [...] Note Roosevelt Madrigal MD - 06/11/2025 EXAM: [facility] CTA CHEST, CTA ABDOMEN, CTA PELVIS WITH [...] TypeResult StatusNico Adonay MDCT ORDERABLESFinal Result * (ABNORMAL) URINE DIPSTICK WITH REFLEX MICROSCOPY (06/11/2025 1:46 PM EDT) ComponentValueRef RangeTest MethodAnalysis TimePerformed AtPathologist PbtcuxmnfSyjwhNrqwtqGowibn85/29/2025 2:03 PM EDTCLINICAL LABORATORY, [facility] CENTERUrine MowepnwmcIwqdcmpmYoffmqwd68/29/2025 2:03 PM EDTCLINICAL LABORATORY, [facility] Appearance XfxprImnrsKiglu41/29/2025 2:03 PM EDTCLINICAL LABORATORY, [facility] Glucose FrkrwOjgjxfgcHsgpymnt02/29/2025 2:03 PM EDTCLINICAL LABORATORY, [facility] Ketones IcxwaIpujymsiAqdcqtjh15/29/2025 2:03 PM EDTCLINICAL LABORATORY, [facility] Blood UrineModerate(A)Raqhwopb39/29/2025 2:03 PM EDTCLINICAL LABORATORY, [facility]ENTERpH Urine6.05.0 - 7.0 pH Units06/11/2025 2:03 PM EDTCLINICAL LABORATORY, [facility] Protein Lrrkw727 mg/dL(A)Negative mg/dL06/11/2025 2:03 PM EDTCLINICAL LABORATORY, [facility] CENTERUrobilinogen Urine0.2 E.U./dL0.2 - 1.010 2:03 PM EDT CL[facility] LAB[facility], [facility] CENTERNitrites PvupsDigxbgyeZhxpjmhv35/29/2025 2:03 PM EDT [facility], [facility]ENTERLeukocyte FtuzzksyCcgxfchgIzorewhy27/29/2025 2:03 PM EDTCLINICAL LABORATORY, [facility] CENTERSpecific [place] Urine>1.030(H)1.000 - 1.030 06/11/2025 2:03 PM EDTCLINICAL LABORATORY, [facility]ERSpecimen (Source)Anatomical Location / LateralityCollection Method / VolumeCollection TimeReceived Time Urine06/11/2025 1:46 PM EDT1 1:46 PM EDT Narrative Authorizing ProviderResult TypeResult StatusNico Adonay GIMENEZBODY FLUIDS & STOOLS ORDERABLESFinal ResultPerforming OrganizationAddressCity/State/ZIP CodePhone Number CLINICAL LABORATORY, [place] [address] [place] [address] * (ABNORMAL) URINE MICROSCOPIC (06/11/2025 1:46 PM EDT)ComponentValueRef Range Test MethodAnalysis TimePerformed AtPathologist SignatureSquamous Cells1/hpf = 1+1/hpf = 1+, 2-5/hpf = 2+, 0/hpf = 0+, QMITIM6706/11/2025 2:15 PM EDTCLINICAL LABORATORY, [facility] CENTERWBC Urine6-9(A)0 - 5 /HPF06/11/2025 2:15 PM EDTCLINICAL LABORATORY, [facility] CENTERRBC Urine0-20 - 2 /HPF06/11/2025 2:15 PM EDTCLINICAL LABORATORY, [facility] CENTERBacteria, UrineTRACE(A)ELVSVT3706/11/2025 2:15 PM EDTCLINICAL LABORATORY, [facility] CENTERAmorphous, Urine<25% = Slight(A)(none)06/11/2025 2:15 PM EDT [facility], [facility]ENTERFine Granular CastsRare(A)(none) /LP06/11/2025 2:15 PM EDTCLINICAL LABORATORY, [facility] CENTERHyaline Casts1-2(A)(none) /LP06/11/2025 2:15 PM EDTCLINICAL LABORATORY, [facility]ENTERSpecimen (Source)Anatomical Location / Laterality Collection Method / VolumeCollection TimeReceived SwnyMpvir70/29/2025 1:46 PM EDT1 1:46 PM EDT Narrative Authorizing ProviderResult TypeResult StatusNico Adonay GIMENEZBODY FLUIDS & STOOLS ORDERABLESFinal ResultPerforming OrganizationAddressCity/State/ZIP CodePhone Number CLINICAL LABORATORY, [place] [address] [place] [address] * URINE CULTURE (06/11/2025 1:46 PM EDT)ComponentValueRef RangeTest Method Analysis TimePerformed AtPathologist SignatureCulture, UrineMixed genital milton isolated. These superficial bacteria are not indicative of a urinary tract infection. No further organism identification is warranted on this specimen.06/13/2025 9:34 AM [employer] JOVIEComment: If clinically indicated, recollect clean-catch, mid-stream urine and transfer immediately to Urine Culture Transport Tube. ?? THIS TEST WAS PERFORMED AT: [employer] [place] [employer] [facility] ??[place] ??[phone] ANASTASIA LUBIN M.D. FdzmtiGDLIK28/31/2025 9:34 AM [employer] JOVIESource:URINE 06/13/2025 9:34 AM [place] JOVIESpecimen (Source)Anatomical Location / LateralityCollection Method / VolumeCollection TimeReceived TimeUrine 06/11/2025 1:46 PM EDT1 2:15 PM EDT Narrative Authorizing ProviderResult TypeResult StatusNico Adonay MDMICROBIOLOGY - GENERAL ORDERABLESFinal ResultPerforming OrganizationAddressCity/State/ZIP CodePhone Number [facility] [address] [place] [address] * CT HEAD WITHOUT CONTRAST (06/11/2025 1:10 PM EDT)Anatomical RegionLaterality ModalityHeadComputed TomographySpecimen (Source)Anatomical Location / LateralityCollection Method / VolumeCollection TimeReceived Time06/11/2025 1:13 PM EDT Impressions 06/11/2025 1:14 PM EDT IMPRESSION: 1. ??Normal brain 2. ??Ethmoid sinusitis Narrative 06/11/2025 1:14 PM EDT EXAM: [facility] CT HEAD WITHOUT CONTRAST, 06/11/2025 13:10 PM [...] Note Roosevelt Madrigal MD - 06/11/2025 EXAM: [facility] CT HEAD WITHOUT CONTRAST, 06/11/2025 13:10 PM [...] ResultPerforming OrganizationAddressCity/State/ZIP CodePhone Number RADIOLOGY * (ABNORMAL) MANUAL DIFF (06/11/2025 12:41 PM EDT)ComponentValueRef RangeTest MethodAnalysis TimePerformed AtPathologist SignatureWBC Count15.00K/uL 06/11/2025 1:25 PM EDTCLINICAL LABORATORY, MCHNeutrophil Segmented Fcjhgd14% 06/11/2025 1:25 PM EDTCLINICAL LABORATORY, MCHNeutrophil Band % Whqnqt15% 06/11/2025 1:25 PM EDTCLINICAL LABORATORY, MCHLymphocyte % Sutvmu86%06/11/2025 1:25 PM EDTCLINICAL LABORATORY, MCHMonocyte % Manual2%06/11/2025 1:25 PM EDT CLINICAL LABORATORY, MCHEosinophils % Manual1%06/11/2025 1:25 PM EDTCLINICAL LABORATORY, MCHMetamyelocyte % Manual1%06/11/2025 1:25 PM EDTCLINICAL LABORATORY, MCHAbs Segs Manual9.30(H)1.80 - 7.70 K/uL06/11/2025 1:25 PM EDT CLINICAL LABORATORY, MCHAbs Bands Manual1.95(H)0.00 - 0.70 K/uL06/11/2025 1:25 PM EDTCLINICAL LABORATORY, MCHAbs Lymph Manual3.151.00 - 4.80 K/uL06/11/2025 1:25 PM EDTCLINICAL LABORATORY, MCHAbs [place] Manual0.300.20 - 0.40 K/uL 06/11/2025 1:25 PM EDTCLINICAL LABORATORY, MCHAbs Eos Manual0.15K\uL06/11/2025 1:25 PM EDTCLINICAL LABORATORY, MCHAbs [place] Manual0.15>=0.00 K/uL06/11/2025 1:25 PM EDTCLINICAL LABORATORY, MCHPlatelet CommentsSpecimen integrity checked. Platelets Adequate 06/11/2025 1:25 PM EDTCLINICAL LABORATORY, MCHSpecimen (Source)Anatomical Location / LateralityCollection Method / VolumeCollection TimeReceived TimeBlood Venipuncture / Xfacuez0306/11/2025 12:41 PM EDT1 12:47 PM EDT Narrative Authorizing ProviderResult TypeResult StatusNico Adonay MDHEMATOLOGY ORDERABLES Final ResultPerforming OrganizationAddressCity/State/ZIP CodePhone Number CLINICAL LABORATORY, [address] [address] * (ABNORMAL) CBC AND ELECTRONIC DIFF (06/11/2025 12:41 PM EDT)ComponentValueRef RangeTest MethodAnalysis TimePerformed AtPathologist SignatureWBC Count15.0(H) 4.5 - 11.0 K/uL06/11/2025 1:08 PM EDTCLINICAL LABORATORY, MCHRBC Count5.60 Male: 4.2-5.6, Female: 3.8-5.3 M/uL06/11/2025 1:08 PM EDTCLINICAL LABORATORY, BZLHbugtkhmnw10.513.1 - 17.2 g/dL06/11/2025 1:08 PM EDTCLINICAL LABORATORY, RTZJadwubfhhy74.239.0 - 50.0 %06/11/2025 1:08 PM EDTCLINICAL LABORATORY, MCH Mean Cell Linrxs22.980.0 - 99.0 fL06/11/2025 1:08 PM EDTCLINICAL LABORATORY, MCHMean Cell Hgb29.5Male: 27.0-35.0, Female: 27.0-34.0 pg06/11/2025 1:08 PM EDTCLINICAL LABORATORY, MCHMean Cell Hgb Conc33.532.0 - 36.0 g/dL06/11/2025 1:08 PM EDTCLINICAL LABORATORY, MCHPlatelet Oiwps202490 - 400 K/uL06/11/2025 1:08 PM EDTCLINICAL LABORATORY, MCHMean Platelet Volume9.47.5 - 11.2 fL 06/11/2025 1:08 PM EDTCLINICAL LABORATORY, [facility] CENTERRBC Vibeodmoydkg69.136.7 - 49.4 fL06/11/2025 1:08 PM EDTCLINICAL LABORATORY, [place] (Source)Anatomical Location / LateralityCollection Method / VolumeCollection TimeReceived Time BloodVenipuncture / Pdiitoh2606/11/2025 12:41 PM EDT1 12:47 PM EDT Narrative Authorizing ProviderResult TypeResult Sammie Urias MDHEMATOLOGY ORDERABLES Final ResultPerforming OrganizationAddressCity/State/ZIP CodePhone Number CLINICAL LABORATORY, [address] [address] * ACETONE, SERUM, KETONES (06/11/2025 12:41 PM EDT)ComponentValueRef RangeTest MethodAnalysis TimePerformed AtPathologist SignatureBeta Hydroxybutyrate0.21 0.02 - 0.27 mmol/L1 1:52 PM EDTCLINICAL LABORATORY, [place] (Source)Anatomical Location / LateralityCollection Method / VolumeCollection TimeReceived TimeBloodVenipuncture / Bnpvghh2606/11/2025 12:41 PM EDT1 12:47 PM EDT Narrative Authorizing ProviderResult TypeResult Sammie Urias MDHEMATOLOGY ORDERABLES Final ResultPerforming OrganizationAddressCity/State/ZIP CodePhone Number CLINICAL LABORATORY, [address] [address] * (ABNORMAL) TSH (06/11/2025 12:41 PM EDT)ComponentValueRef RangeTest Method Analysis TimePerformed AtPathologist SignatureTSH, High Sensitivity7.255(H) 0.350 - 4.940 uIU/mL06/11/2025 1:37 PM EDTCLINICAL LABORATORY, [facility] CENTERZoe (Source)Anatomical Location / LateralityCollection Method / VolumeCollection TimeReceived TimeBloodVenipuncture / Ykznctx4806/11/2025 12:41 PM EDT1 12:47 PM EDT Narrative Authorizing ProviderResult TypeResult Sammie Urias MDENDOCRINOLOGYFinal ResultPerforming OrganizationAddressCity/State/ZIP CodePhone Number CLINICAL LABORATORY, [address] [address] * B-TYPE NATRIURETIC PEPTIDE (BRAIN) (06/11/2025 12:41 PM EDT)ComponentValueRef RangeTest MethodAnalysis TimePerformed AtPathologist SignatureB-Type Natriuretic Svsezkp141 - 100 pg/mL06/11/2025 1:18 PM EDTCLINICAL LABORATORYBROOKDALE UN[facility] AND MEDICAL CENTERComment: Reference Range: <50 years of age, the normal value <125 pg/mL, rule-in cut point for acute heart failure 450 pg/mL. 50 to 75 years of age, normal value <125 pg/mL, rule-in cut point 900 pg/mL. >75 years, normal value <450 pg/mL, rule-in cut point 1800 pg/mL. Specimen (Source)Anatomical Location / LateralityCollection Method / Volume Collection TimeReceived TimeBloodVenipuncture / Znxbaoy1506/11/2025 12:41 PM EDT 06/11/2025 12:47 PM EDT Narrative Authorizing ProviderResult TypeResult StatusNico Adonay MDCHEMISTRY ORDERABLES Final ResultPerforming OrganizationAddressCity/State/ZIP CodePhone Number CLINICAL LABORATORY, [address] [address] * (ABNORMAL) MAGNESIUM (06/11/2025 12:41 PM EDT)ComponentValueRef RangeTest MethodAnalysis TimePerformed AtPathologist SignatureMagnesium4.8(H)1.6 - 2.6 mg/dL06/11/2025 1:52 PM EDTCLINICAL LABORATORYBROOKDALE UN[facility] AND MEDICAL CENTERSpecimen (Source)Anatomical Location / LateralityCollection Method / VolumeCollection TimeReceived Time BloodVenipuncture / Hbhvrzs7306/11/2025 12:41 PM EDT1 12:47 PM EDT Narrative Authorizing ProviderResult TypeResult StatusNico Adonay MDCHEMISTRY ORDERABLES Final ResultPerforming OrganizationAddressCity/State/ZIP CodePhone Number CLINICAL LABORATORY, [place] [address] [place] [address] * ALCOHOL (ETHANOL),BLOOD (06/11/2025 12:41 PM EDT)ComponentValueRef RangeTest MethodAnalysis TimePerformed AtPathologist SignatureSerum Alcohol<10<10 mg/dL 06/11/2025 1:52 PM EDTCLINICAL LABORATORY, MCHSpecimen (Source)Anatomical Location / LateralityCollection Method / VolumeCollection TimeReceived Time BloodVenipuncture / Udopool9106/11/2025 12:41 PM EDT1 12:47 PM EDT Narrative Authorizing ProviderResult TypeResult StatusNico Adonay MDDRUG/TOXICOLOGYFinal ResultPerforming OrganizationAddressCity/State/ZIP CodePhone Number [facility], [place] [address] [place] [address] * (ABNORMAL) HEPATIC FUNCTION PANEL (06/11/2025 12:41 [...] - 8.3 g/dL06/11/2025 1:52 PM EDTCLINICAL LABORATORY, XESFIQ63(H)<39 U/L1 1:52 PM EDTCLINICAL LABORATORY, MCHSpecimen (Source)Anatomical Location / LateralityCollection Method / VolumeCollection TimeReceived TimeBlood Venipuncture / Iuvfdbi5106/11/2025 12:41 PM EDT1 12:47 PM EDT Narrative Authorizing ProviderResult TypeResult StatusNico Adonay MDCHEMISTRY ORDERABLES Final ResultPerforming OrganizationAddressCity/State/ZIP CodePhone Number [facility], [place] [address] [place] [address] from Last 3 Months Insurance Advance Directives For more information, please contact: [phone] (7:30 AM - 6PM [facility], Monday-Monday) * Full Code (Latest Code Status on File) Date ActivatedDate NfmmqmnrywkYodhicar98/29/2025 9:40 PM Care Teams Team MemberRelationshipSpecialtyStart DateEnd Date Bobbi Vigil MD [address] [place] [address] PCP - GeneralFamily Chmnzpvz29/29/25
--- OUTSIDE RECORDS SUMMARY | 2025-06-23 15:10 | XMS_ITS | Encounter Summary ---
Author Organization [facility] Address [address] [place] [address] Care Team Providers Care Detasseler Name Role Phone Bobbi Vigil MD Primary Care Provider [phone] Encounter Details DateTypeDepartmentCare Team (Latest Contact Info)Osorgdxosna80/30/2025Travel Social History Tobacco UseTypesPacks/DayYears UsedDateSmoking Tobacco: NeverSmokeless Tobacco: NeverAlcohol UseStandard Drinks/WeekCommentsNever0 (1 standard drink = 0.6 [...] OrientationNot on filedocumented as of this encounter Functional Status * Are you deaf or do you have serious difficulty hearing?AnswerDate of TivpwpislcEubvdwOe89/30/2025 4:24 AM Gladys Wadsworth RN * Are you blind or do you have serious difficulty seeing, even when wearing glasses?AnswerDate of UvolahznqwLtqvpvVh46/30/2025 4:24 AM Gladys Wadsworth RN * Do you have serious difficulty walking or climbing stairs (5 years or older)? AnswerDate of AoqagdwkfrRhlyuuCq52/30/2025 4:24 AM Gladys Wadsworth RN * Do you have difficulty dressing or bathing (5 yrs or older)?AnswerDate of HfemhwtnqpMkxphdZw67/30/2025 4:24 AM Gladys Wadsworth RN * Because of a physical, mental, or emotional condition, do you have difficulty doing errands alone such as visiting a doctor's office or shopping (5 yrs or older)?AnswerDate of ZfbsqgqomzRenavuDy39/30/2025 4:24 AM Gladys Wadsworth RN documented as of this encounter Mental Status * Because of a physical, mental, or emotional condition, do you have serious difficulty concentrating, remembering, or making decisions (5 yrs or older)? AnswerEntry KixvBgqdkdPk11/30/2025 4:24 AM Gladys Wadsworth RN documented in this encounter Plan of Treatment Not on file documented as of this encounter Visit Diagnoses Not on filedocumented in this encounter Care Teams Team MemberRelationshipSpecialtyStart DateEnd Date Bobbi Vigil MD [address] [place] [phone] PCP - GeneralFamily Tduskcha65/29/25documented as of this encounter
--- OUTSIDE RECORDS SUMMARY | 2025-06-23 15:13 | XMS_ITS | CCD ---
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 35.[address] Joseph Warren HospitalHC (RBC) [Mass/Vol]33.6 g/dL32.0 - 36.0 g/dLMercy Health St. Joseph Warren HospitalV (RBC) [Entitic vol]85.8 fL80.0 - 99.0 fLChildren'S Hospital For RehabilitationPlatelet mean volume (Bld) [Entitic vol]8.6 fL7.5 - 11.2 fLChildren'S Hospital For RehabilitationPlatelets (Bld) [#/Vol]201 10*3/uL150 - 400 K/Veterans Health AdministrationRBC (Bld) [#/Vol]4.99 10*6/uL [facility] Hospital For RehabilitationWBC (Bld) [#/Vol]10.4 10*3/uL4.5 - 11.0 K/[facility] RankinHematocrit (Bld) [Volume fraction]42.8 %Vsdsvj91.0-50.0De[facility] County Memorial HospitalComment on above:Performed By: #### HEMOGC #### [facility] (DEFAULT) [address] [place], [place] [address]Dxpwwmnrdc (Bld) [Mass/Vol]14.4 g/zYDzhyfo99.1-17.2MWinner Regional Healthcare CenterComment on above:Performed By: #### HEMOGC #### [facility] (DEFAULT) [address] [place], [place] [address]RBZ (RBC) [Entitic vol]85.8 hBKerhhs04.0-99.0[facility] HospitalComment on above:Performed By: #### HEMOGC #### [facility] (DEFAULT) [address] [place], [place] [address]Gbbn Cell Hgb28.9 pgNormalMale: 27.0-35.0, Female: 27.0-34.0 [facility] HospitalComment on above:Performed By: #### HEMOGC #### [facility] (DEFAULT) [address] [place], [place] [address]Vqwn Cell Hgb Conc33.6 g/pJYswpro23.0-36.0[facility] HospitalComment on above:Performed By: #### HEMOGC #### [facility] (DEFAULT) [address] [place], [place] [address]Imbvmueo mean volume (Bld) [Entitic vol]8.6 fLNormal7.5-11.2 [facility] HospitalComment on above:Performed By: #### HEMOGC #### [facility] (DEFAULT) [address] [place], [place] [address]Lnrsgyala (Bld) [#/Vol]201 10*3/tYGowxdx052-899Sfwvpvm County HospitalComment on above:Performed By: #### HEMOGC #### [facility] (DEFAULT) [address] [place], [place] [address]YGA (Bld) [#/Vol]4.99 10*6/uLNormalMale: 4.2-5.6, Female: 3.8-5.3MWinner Regional Healthcare CenterComment on above:Performed By: #### HEMOGC #### [facility] (DEFAULT) [address] [place], [place] [address]AOU DistributionNormalWinner Regional Healthcare Center HospitalComment on above: Performed By: #### HEMOGC #### [facility] (DEFAULT) [address] [place], [place] [address]EVL (Bld) [#/Vol]10.4 10*3/uLNormal4.5-11.0[facility] HospitalComment on above:Performed By: #### HEMOGC #### [facility] (DEFAULT) [address] [place], [place] [address]CCXM 7 (LYTES,BUN,CREA,GLUC)on 61-46-7153Hqixd gap [Moles/Vol]14 mmol/LMadison HealthChloride [Moles/Vol]114 mmol/LHigh98 - 107 mmol/LMadison HealthCO2 [Moles/Vol]19 mmol/LLow22 - 29 mmol/LMadison HealthCreatinine [Mass/Vol]1.60 mg/dLHigh0.72 - 1.25 mg/dLLadisWayne HospitalGFR/1.73 sq M.predicted MDRD (S/P/Bld) [Vol rate/Area]56 mL/min/{1.73_m2}mL/min/1.73sqUniversity Hospitals Cleveland [facility] Health GFR/1.73 sq M.predicted MDRD (S/P/Bld) [Vol rate/Area]47 mL/min/{1.73_m2} mL/min/1.73sqProMedica Bay Park HospitalGlucose [Mass/Vol]93 mg/dL70 - 105 mg/dLChildren'S Hospital For RehabilitationInterpretation and review of laboratory resultsAbnoGenesis Hospital Osmolality Calc [Osmolality]300mOsm/kgChildren'S Hospital For RehabilitationPotassium [Moles/Vol]4.2 mmol/L3.5 - 5.1 mmol/LMadison HealthSodium [Moles/Vol]143 mmol/L136 - 145 mmol/L [facility] For RehabilitationUrea nitrogen [Mass/Vol]18 mg/dL9 - 21 mg/dLChildren'S Hospital For RehabilitationUrea nitrogen/Creatinine [Mass ratio]11 mg/mgUniversity Hospitals Geauga Medical CenterAnion gap [Moles/Vol]14 mmol/LNormalDeuel County Memorial HospitalComment on above:Performed By: #### HEMOGC #### [facility] (DEFAULT) [address] [place], [place] [address]Vdsbikqt [Moles/Vol]114 mmol/BBpip79-170YzeqwhqDeuel County Memorial Hospital Comment on above:Performed By: #### HEMOGC #### [facility] (DEFAULT) [address] [facility], [place] [address]PK4 [Moles/Vol]19 mmol/JFjs45-44XlnrlhmDeuel County Memorial HospitalComment on above:Performed By: #### HEMOGC #### [facility] (DEFAULT) [address] [facility], [place] [address]Tnyqnpzhrd [Mass/Vol]1.60 mg/dLHigh0.72-1.25De[facility] HospitalComment on above:Performed By: #### HEMOGC #### [facility] (DEFAULT) [address] [facility], [place] [address]Yejymthhh GFR, Blkarrjz60 mL/min/1.73sqMNLead-Deadwood Regional HospitalComment on above:Performed By: #### HEMOGC #### [facility] (DEFAULT) [address] [place], [place] [address]Slpipxlcx GFR,Non Vjcwtkss42 mL/min/1.73sqMNLead-Deadwood Regional HospitalComment on above:Performed By: #### HEMOGC #### [facility] (DEFAULT) [address] [facility], [place] [address]Huflurb [Mass/Vol]93 mg/kFXpckic00-324CxuqvhkDeuel County Memorial Hospital Comment on above:Performed By: #### HEMOGC #### [facility] (DEFAULT) [address] [facility], [place] [address]Tvfsybhnib [Osmolality]300 mosm/kgNoAvera Queen of Peace Hospital Comment on above:Performed By: #### HEMOGC #### [facility] (DEFAULT) [address] [facility], [place] [address]Hxlykhwqa [Moles/Vol]4.2 mmol/LNormal3.5-5.1MWinner Regional Healthcare CenterComment on above:Performed By: #### HEMOGC #### [facility] (DEFAULT) [address] [place], [place] [address]Zfzwvw [Moles/Vol]143 mmol/MGdwclk213-380VwlkfcaDeuel County Memorial Hospital Comment on above:Performed By: #### HEMOGC #### [facility] (DEFAULT) [address] [facility], [place] [address]Vuyu nitrogen [Mass/Vol]18 mg/dLNormal9-21Mad[facility] County HospitalComment on above:Performed By: #### HEMOGC #### [facility] (DEFAULT) [address] [place], [place] [address]Kjuq nitrogen/Creatinine [Mass ratio]11 mg/mgNormalDeuel County Memorial HospitalComment on above:Performed By: #### HEMOGC #### [facility] (DEFAULT) [address] [place], [place] [address]MNnu [id number] [Catalytic activity/Vol]3371 U/LHigh30 - 200 U/LMadison [facility] Work Phone: Interpretation and review of laboratory results AbnormalWalling Spondo Work Phone: MaKet[facility] Work Phone: CK [Catalytic activity/Vol]8001 U/LHigh30 - 200 U/L [facility] Work Phone: Interpretation and review of laboratory results AbnormalWalling Spondo Work Phone: [facility] Work Phone: CK [Catalytic activity/Vol]8001 U/YXjth43-656XhjntzyDeuel County Memorial HospitalComment on above:Order Comment: Plz use second sample from yesterdayPerformed By: #### HEMOGC #### [facility] (DEFAULT) [address] [place], [place] [address]Vxfoqwz echo study Procedureon 06-12-2025 Indication ======== elevated troponin. Conclusion ========= Normal [...] A2C) 35.1 ml LAESVI (MOD A4C) 17 ml/m [0.6-1.0] LVSV (Auto EF A4C) 72.8 ml LAESV (A-L BIP) 38.6 ml LVIDd 5.0 cm LVSV (Auto EF A2C) 52.2 ml LAESVI (MOD A2C) 15 ml/m [4.2-5.8] LVEF (Auto EF A2C) 60 % LAESV (MOD BIP) 36.2 ml LVIDs 3.4 cm [52-72] LAESVI (MOD BIP) 16 ml/m [2.5-4.0] LVEF (Auto EF BIP) 58 % [16-34] LVPWd 0.9 cm [52-72] RAA (s) 15.0 cm [0.6-1.0] LVEF (MOD BIP) 64 % [10.0-18.0] LVRWT 0.37 [52-72] RAA Index (s) 6.74 cm /m [0.24-0.42] RVIDd 3.9 cm LVOT Diam 2.4 cm LVd Mass 176 g RV basal (D1) 3.2 cm Ao Root Diam 3.5 cm [88-224] [2.5-4.1] Ao Asc Diam 3.6 cm LVd Mass Index 79 g/m RV mid (D2) 2.0 cm [2.6-3.4] [49-115] [1.9-3.5] Ao Asc Diam Index 1.64 cm/m LVEF (Teich) 60 % RV longit. (D3) 8.2 cm [1.3-1.7] LVd Mass (ASE) 153 g [5.9-8.3] Ao Asc Diam Index (h) 2.05 cm/m [88-224] LAAs Index (A4C) 7.1 cm /m LVd Mass Index (ASE) 68 g/m [7.4-10.4] [49-115] LAESVI (A-L) 17 ml/m LVEDV (Auto EF A4C) 130.5 ml LVEDV (Auto EF A2C) 87.4 ml LVESV (Auto EF A4C) 57.7 ml Doppler MV E Velocity 0.75 m/s LVOT mean PG 2.28 mmHg AV mean PG 3.59 mmHg MV A Velocity 0.62 m/s LVOT VTI 20.0 cm AV VTI 26.6 cm MV E / A 1.22 LVOT SV 88.0 ml JEANETTE (VTI) 3.3 cm [0.78-1.78] LVOT SVI 39.5 ml/m AVAI (VTI) 1.5 cm /m MV Dec. Time 177 ms LVOT CO 7.34 l/min JEANETTE (Vmax) 3.3 cm [143-219] LVOT CI 3.29 l/min/m AV HR 84 bpm MV PHT 51 ms AV Vmax 1.31 m/s LV HR 83 bpm MVA PHT 4.3 cm Dimensionless Index 0.74 RAP 8 mmHg MV Dec. [place] 4.24 m/s AV max PG 6.89 mmHg PV Vmax [...] interventricular septum is intact. Left Atrium ========= (more content not included)...Dioni Corrigan MD - 06/12/2025 Indication ======== elevated troponin. [...] A2C) 35.1 ml LAESVI (MOD A4C) 17 ml/m [0.6-1.0] LVSV (Auto EF A4C) 72.8 ml LAESV (A-L BIP) 38.6 ml LVIDd 5.0 cm LVSV (Auto EF A2C) 52.2 ml LAESVI (MOD A2C) 15 ml/m [4.2-5.8] LVEF (Auto EF A2C) 60 % LAESV (MOD BIP) 36.2 ml LVIDs 3.4 cm [52-72] LAESVI (MOD BIP) 16 ml/m [2.5-4.0] LVEF (Auto EF BIP) 58 % [16-34] LVPWd 0.9 cm [52-72] RAA (s) 15.0 cm [0.6-1.0] LVEF (MOD BIP) 64 % [10.0-18.0] LVRWT 0.37 [52-72] RAA Index (s) 6.74 cm /m [0.24-0.42] RVIDd 3.9 cm LVOT Diam 2.4 cm LVd Mass 176 g RV basal (D1) 3.2 cm Ao Root Diam 3.5 cm [88-224] [2.5-4.1] Ao Asc Diam 3.6 cm LVd Mass Index 79 g/m RV mid (D2) 2.0 cm [2.6-3.4] [49-115] [1.9-3.5] Ao Asc Diam Index 1.64 cm/m LVEF (Teich) 60 % RV longit. (D3) 8.2 cm [1.3-1.7] LVd Mass (ASE) 153 g [5.9-8.3] Ao Asc Diam Index (h) 2.05 cm/m [88-224] LAAs Index (A4C) 7.1 cm /m LVd Mass Index (ASE) 68 g/m [7.4-10.4] [49-115] LAESVI (A-L) 17 ml/m LVEDV (Auto EF A4C) 130.5 ml LVEDV (Auto EF A2C) 87.4 ml LVESV (Auto EF A4C) 57.7 ml Doppler MV E Velocity 0.75 m/s LVOT mean PG 2.28 mmHg AV mean PG 3.59 mmHg MV A Velocity 0.62 m/s LVOT VTI 20.0 cm AV VTI 26.6 cm MV E / A 1.22 LVOT SV 88.0 ml JEANETTE (VTI) 3.3 cm [0.78-1.78] LVOT SVI 39.5 ml/m AVAI (VTI) 1.5 cm /m MV Dec. Time 177 ms LVOT CO 7.34 l/min JEANETTE (Vmax) 3.3 cm [143-219] LVOT CI 3.29 l/min/m AV HR 84 bpm MV PHT 51 ms AV Vmax 1.31 m/s LV HR 83 bpm MVA PHT 4.3 cm Dimensionless Index 0.74 RAP 8 mmHg MV Dec. [place] 4.24 m/s AV max PG 6.89 mmHg PV Vmax [...] 3mmHg. Pericardium There is no pericardial effusion. [employer] Phone: MadisRegaalo Phone: Radiology Study observation (narrative)[employer] Phone: ECHOCARDIOGRAMon [phone]ew ======== elevated troponin. Conclusion ========= Normal left [...] A2C) 35.1 ml LAESVI (MOD A4C) 17 ml/mA? [0.6-1.0] LVSV (Auto EF A4C) 72.8 ml LAESV (A-L BIP) 38.6 ml LVIDd 5.0 cm LVSV (Auto EF A2C) 52.2 ml LAESVI (MOD A2C) 15 ml/mA? [4.2-5.8] LVEF (Auto EF A2C) 60 % LAESV (MOD BIP) 36.2 ml LVIDs 3.4 cm [52-72] LAESVI (MOD BIP) 16 ml/mA? [2.5-4.0] LVEF (Auto EF BIP) 58 % [16-34] LVPWd 0.9 cm [52-72] RAA (s) 15.0 airway controller? [0.6-1.0] LVEF (MOD BIP) 64 % [10.0-18.0] LVRWT 0.37 [52-72] RAA Index (s) 6.74 airway controller?/mA? [0.24-0.42] RVIDd 3.9 cm LVOT Diam 2.4 cm LVd Mass 176 g RV basal (D1) 3.2 cm Ao Root Diam 3.5 cm [88-224] [2.5-4.1] Ao Asc Diam 3.6 cm LVd Mass Index 79 g/mA? RV mid (D2) 2.0 cm [2.6-3.4] [49-115] [1.9-3.5] Ao Asc Diam Index 1.64 cm/mA? LVEF (Teich) 60 % RV longit. (D3) 8.2 cm [1.3-1.7] LVd Mass (ASE) 153 g [5.9-8.3] Ao Asc Diam Index (h) 2.05 cm/m [88-224] LAAs Index (A4C) 7.1 airway controller?/mA? LVd Mass Index (ASE) 68 g/mA? [7.4-10.4] [49-115] LAESVI (A-L) 17 ml/mA? LVEDV (Auto EF A4C) 130.5 ml LVEDV (Auto EF A2C) 87.4 ml LVESV (Auto EF A4C) 57.7 ml Doppler MV E Velocity 0.75 m/s LVOT mean PG 2.28 mmHg AV mean PG 3.59 mmHg MV A Velocity 0.62 m/s LVOT VTI 20.0 cm AV VTI 26.6 cm MV E / A 1.22 LVOT SV 88.0 ml JEANETTE (VTI) 3.3 airway controller? [0.78-1.78] LVOT SVI 39.5 ml/mA? AVAI (VTI) 1.5 airway controller?/mA? MV Dec. Time 177 ms LVOT CO 7.34 l/min JEANETTE (Vmax) 3.3 airway controller? [143-219] LVOT CI 3.29 l/min/mA? AV HR 84 bpm MV PHT 51 ms AV Vmax 1.31 m/s LV HR 83 bpm MVA PHT 4.3 airway controller? Dimensionless Index 0.74 RAP 8 mmHg MV Dec. [place] 4.24 m/sA? AV max PG 6.89 mmHg PV Vmax [...] 3mmHg. Pericardium There is no pericardial effusion. Table formatting from the original result was not included. Images from the original result were not included. Formerly [facility] Patient Information Patient Name Scarlet Mayer Legal Sex Male Indication for Exam Priority: Routine elevated troponin Order Question Reason for Exam elevated tropponin Interpretation Summary Res (more content not included)...[facility] Heart perfusion at rest and W stress and W radionuclide [place] [phone] Monsalve MD 06/12/2025 11:21 AM Gated [employer] Myocardial Perfusion Scintigraphy Same Day Rest/Stress Procedure Scarlet Mayer 1975 49 y.o. male 06/11/2025 12:33 PM [...] evidence of infarct or stress induced ischemia. [employer] Phone: [employer] Phone: Radiology Study observation (narrative)[employer] Phone: TROPONINon [phone] and review of laboratory resultsAbnormalMaYik Yak Phone: Troponin I.cardiac DL <= 0.01 ng/mL [Mass/Vol]0.051 ng/mLHighNINF - 0.033 ng/mLLaYik Yak Phone: Comment on above:0.034-0.110 INDETERMINATE >0.120 DIAGNOSTIC [employer] Phone: Troponin I.cardiac [Mass/Vol]0.051 ng/mLHigh<0.033 [facility] HospitalComment on above:Order Comment: Draw first Troponin 6 hours after initial draw.Result Comment: 0.034-0.110 INDETERMINATE >0.120 DIAGNOSTICPerformed By: #### HEMOGC #### [facility] (DEFAULT) [address] [place], [place] [address]Icigjxfb I.cardiac [Mass/Vol]0.111 ng/mLHigh<0.033De[facility] County [facility] HospitalComment on above:Order Comment: Draw first Troponin 6 hours after initial draw.Result Comment: 0.034-0.110 INDETERMINATE >0.120 DIAGNOSTICPerformed By: #### TROP #### [facility] (DEFAULT) [address] [place], [place] [address]JPOZBIDHKdvxyai By: Jarad Barkley on [phone] and review of laboratory resultsAbnormalChildren'S Hospital For RehabilitationTroponin I.cardiac DL <= 0.01 ng/mL [Mass/Vol]0.111 ng/mLHighNINF - 0.033 ng/mLChildren'S Hospital For RehabilitationComment on above:0.034-0.110 INDETERMINATE >0.120 DIAGNOSTIC [facility] For RehabilitationACETONE, SERUM, KETONESon [phone] hydroxybutyrate [Moles/Vol]0.21 mmol/L0.02 - 0.27 mmol/LMadison HealthInterpretation and review of laboratory resultsNormalChildren'S Hospital For RehabilitationBeta Hydroxybutyrate0.21 mmol/LNormal 0.02-0.27De[facility] HospitalComment on above:Performed By: #### BNP #### [facility] (DEFAULT) [address] [place], [place] [address]QMFDAGP (ETHANOL),BLOODon [phone] Ql (Bld)mg/dLNINF - 10 mg/dLChildren'S Hospital For Rehabilitation Work Phone: Interpretation and review of laboratory resultsNormal [facility] Work Phone: [facility] Work Phone: Serum Alcohol<10Normal<10[facility] Comment on above:Performed By: #### BNP #### [facility] (DEFAULT) [address] [place], [place] [address]N-TOBZ NATRIURETIC PEPTIDE (BRAIN)on [phone] and review of laboratory resultsNormalWalling HealthNatriuretic peptide B (Bld) [Mass/Vol]29 pg/mL0 - 100 pg/mLChildren'S Hospital For RehabilitationComment on above:Reference Range: <50 years of age, the normal value <125 pg/mL, rule-in cut point for acute heart failure 450 pg/mL. 50 to 75 years of age, normal value <125 pg/mL, rule-in cut point 900 pg/mL. >75 years, normal value <450 pg/mL, rule-in cut point 1800 pg/mL. [facility] Hospital For RehabilitationNatriuretic peptide B (Bld) [Mass/Vol]29 pg/mLNormal0-100De[facility] HospitalComharper university hospital on above:Result Comment: Reference Range: <50 years of age, the normal value <125 pg/mL, rule-in cut point for acute heart failure 450 pg/mL. 50 to 75 years of age, normal value <125 pg/mL, rule-in cut point 900 pg/mL. >75 years, normal value <450 pg/mL, rule-in cut point 1800 pg/mL.Performed By: #### BNP #### [facility] (DEFAULT) [address] [place], [place] [address]HXKLT METABOLIC PANELOrdered By: Karma Agrawal on 06-11-2025 Anion gap [Moles/Vol]14 mmol/LMadison HealthCalcium [Mass/Vol]8.1 mg/dLLow8.4 - 10.2 mg/dLMadison HealthChloride [Moles/Vol]111 mmol/LHigh98 - 107 mmol/LMadison HealthCO2 [Moles/Vol]18 mmol/LLow22 - 29 mmol/LMadison HealthCreatinine [Mass/Vol]1.63 mg/dLHigh0.72 - 1.25 mg/dLMadison HealthGFR/1.73 sq M.predicted MDRD (S/P/Bld) [Vol rate/Area]55 mL/min/{1.73_m2}mL/min/1.73sqMMadison Health GFR/1.73 sq M.predicted MDRD (S/P/Bld) [Vol rate/Area]46 mL/min/{1.73_m2} mL/min/1.73sqProMedica Bay Park HospitalGlucose [Mass/Vol]117 mg/kLVyyy11 - 105 mg/dLChildren'S Hospital For RehabilitationInterpretation and review of laboratory resultsAbnormLicking Memorial Hospital Osmolality Calc [Osmolality]293mOsm/kgChildren'S Hospital For RehabilitationPotassium [Moles/Vol]3.8 mmol/L3.5 - 5.1 mmol/[facility] HospitalComment on above:Specimen integrity checked. Repeated and verified Sodium [Moles/Vol]139 mmol/L136 - 145 mmol/[facility] HospitalUrea nitrogen [Mass/Vol]17 mg/dL9 - 21 mg/dLChildren'S Hospital For RehabilitationUrea nitrogen/Creatinine [Mass ratio]10 mg/mgUniversity Hospitals Geauga Medical CenterBASIC METABOLIC PANELon 06-11-2025 Anion gap [Moles/Vol]14 mmol/LNormalDeuel County Memorial HospitalComment on above: Performed By: #### HEMOGC #### [facility] (DEFAULT) [address] [place], [place] [address]Eiskpfk [Mass/Vol]8.1 mg/dLLow8.4-10.2MWinner Regional Healthcare Center Comment on above:Performed By: #### HEMOGC #### [facility] (DEFAULT) [address] [place], [place] [address]Oavuhtjt [Moles/Vol]111 mmol/AHgob38-677ZmysecwDeuel County Memorial Hospital Comment on above:Performed By: #### HEMOGC #### [facility] (DEFAULT) [address] [place], [place] [address]LG7 [Moles/Vol]18 mmol/ZZtp91-97IjxogloDeuel County Memorial HospitalComment on above:Performed By: #### HEMOGC #### [facility] (DEFAULT) [address] [place], [place] [address]Ynbatyxjxu [Mass/Vol]1.63 mg/dLHigh0.72-1.25De[facility] HospitalComment on above:Performed By: #### HEMOGC #### [facility] (DEFAULT) [address] [place], [place] [address]Ybkbmkbdq GFR, Kzdugbvr72 mL/min/1.73sqMNLead-Deadwood Regional HospitalComment on above:Performed By: #### HEMOGC #### [facility] (DEFAULT) [address] [facility], [place] [address]Atpssstmu GFR,Non Irxwzcul15 mL/min/1.73sqMNLead-Deadwood Regional HospitalComment on above:Performed By: #### HEMOGC #### [facility] (DEFAULT) [address] [facility], [place] [address]Fjetnmj [Mass/Vol]117 mg/fESkzt45-039RmzwmmpDeuel County Memorial Hospital Comment on above:Performed By: #### HEMOGC #### [facility] (DEFAULT) [address] [facility], [place] [address]Txfwtvofct [Osmolality]293 mosm/kgNoAvera Queen of Peace Hospital Comment on above:Performed By: #### HEMOGC #### [facility] (DEFAULT) [address] [facility], [place] [address]Tfinvzejz [Moles/Vol]3.8 mmol/LNormal3.5-5.1MWinner Regional Healthcare CenterComment on above:Result Comment: Specimen integrity checked. Repeated and verifiedPerformed By: #### HEMOGC #### [facility] (DEFAULT) [address] [place], [place] [address]Juutif [Moles/Vol]139 mmol/KCsjxmr975-743HsgogebDeuel County Memorial Hospital Comment on above:Performed By: #### HEMOGC #### [facility] (DEFAULT) [address] [place], [place] [address]Geip nitrogen [Mass/Vol]17 mg/dLNormal9-21De[facility] HospitalComment on above:Performed By: #### HEMOGC #### [facility] (DEFAULT) [address] [facility], [place] [address]Iqaw nitrogen/Creatinine [Mass ratio]10 mg/mgNoAvera Queen of Peace HospitalComment on above:Performed By: #### HEMOGC #### [facility] (DEFAULT) [address] [facility], [place] [address]Qrghj gap [Moles/Vol]34 mmol/LNormalDeuel County Memorial Hospital Comment on above:Performed By: #### BNP #### [facility] (DEFAULT) [address] [facility], [place] [address]Ichtkqp [Mass/Vol]9.2 mg/dLNormal8.4-10.2MWinner Regional Healthcare Center Comment on above:Performed By: #### BNP #### [facility] (DEFAULT) [address] [facility], [place] [address]Tdyepoqy [Moles/Vol]108 mmol/JPzkf23-399MmgsmkgDeuel County Memorial Hospital Comment on above:Performed By: #### BNP #### [facility] (DEFAULT) [address] [facility], [place] [address]HK0 [Moles/Vol]5 mmol/LCritically dbd47-99QkdctddDeuel County Memorial HospitalComment on above:Performed By: #### BNP #### [facility] (DEFAULT) [address] [facility], [place] [address]Tabygsllel [Mass/Vol]1.82 mg/dLHigh0.72-1.25De[facility] HospitalComment on above:Performed By: #### BNP #### [facility] (DEFAULT) [address] [place], [place] [address]Cpqqyxkpt GFR, Hcfhcrhm58 mL/min/1.73sqMNormalDeuel County Memorial HospitalComment on above:Performed By: #### BNP #### [facility] (DEFAULT) [address] [facility], [place] [address]Ogbxwfiym GFR,Non Uhrzacqt31 mL/min/1.73sqMNormalDeuel County Memorial HospitalComment on above:Performed By: #### BNP #### [facility] (DEFAULT) [address] [facility], [place] [address]Shsevec [Mass/Vol]172 mg/qYOozu49-275GdimxgyDeuel County Memorial Hospital Comment on above:Performed By: #### BNP #### [facility] (DEFAULT) [address] [facility], [place] [address]Xowlwekqkj [Osmolality]304 mosm/kgNormalDeuel County Memorial Hospital Comment on above:Performed By: #### BNP #### [facility] (DEFAULT) [address] [facility] [address]Uvkzdrdnu [Moles/Vol]5.1 mmol/LNormal3.5-5.1MWinner Regional Healthcare CenterComment on above:Performed By: #### BNP #### [facility] (DEFAULT) [address] [facility], [place] [address]Qxstuk [Moles/Vol]142 mmol/EQzqydj467-950GwjngqgDeuel County Memorial Hospital Comment on above:Performed By: #### BNP #### [facility] (DEFAULT) [address] [place], [place] [address]Qrez nitrogen [Mass/Vol]15 mg/dLNormal9-21De[facility] HospitalComment on above:Performed By: #### BNP #### [facility] (DEFAULT) [address] [place], [place] [address]Mbfa nitrogen/Creatinine [Mass ratio]8 mg/mgNormalDeuel County Memorial HospitalComment on above:Performed By: #### BNP #### [facility] (DEFAULT) [address] [place], [place] [address]UWVWR METABOLIC PANELOrdered By: Scarlet Cook on 06-11-2025 Anion gap [Moles/Vol]34 mmol/LMadison HealthCalcium [Mass/Vol]9.2 mg/dL8.4 - 10.2 mg/dLMadison HealthChloride [Moles/Vol]108 mmol/LHigh98 - 107 mmol/LMadison HealthCO2 [Moles/Vol]5 mmol/LCritically low22 - 29 mmol/LMadison Health Creatinine [Mass/Vol]1.82 mg/dLHigh0.72 - 1.25 mg/dLMadison HealthGFR/1.73 sq M.predicted MDRD (S/P/Bld) [Vol rate/Area]49 mL/min/{1.73_m2}mL/min/1.73sqM Walling HealthGFR/1.73 sq M.predicted MDRD (S/P/Bld) [Vol rate/Area]40 mL/min/{1.73_m2}mL/min/1.73sqMMadison HealthGlucose [Mass/Vol]172 mg/xETnqv64 - 105 mg/dLLadis HealthInterpretation and review of laboratory resultsAbnormal [facility] RehabilitationOsmolality Calc [Osmolality]304mOsm/kgMadison HealthPotassium [Moles/Vol]5.1 mmol/L3.5 - 5.1 mmol/LMadison HealthSodium [Moles/Vol]142 mmol/L 136 - 145 mmol/LMadison HealthUrea nitrogen [Mass/Vol]15 mg/dL9 - 21 mg/dL [facility] RehabilitationUrea nitrogen/Creatinine [Mass ratio]8 mg/mgMadison HealthMadison HealthCBC AND ELECTRONIC DIFFOrdered By: Shraddha Bowling on [id number] distribution width (RBC) [Ratio]43.1 fL36.7 - 49.4 fLChildren'S Hospital For RehabilitationHematocrit (Bld) [Volume fraction]49.2 %39.0 - 50.0 %[facility] RehabilitationHemoglobin (Bld) [Mass/Vol]16.5 g/dL13.1 - 17.2 g/dLChildren'S Hospital For RehabilitationInterpretation and review of laboratory resultsAbnormalMercy Health St. Joseph Warren HospitalH (RBC) [Entitic mass]29.5 pg27.0 - 35.[address] HospitalHC (RBC) [Mass/Vol]33.5 g/dL32.0 - 36.0 g/dLMercy Health St. Joseph Warren HospitalV (RBC) [Entitic vol]87.9 fL80.0 - 99.0 fLChildren'S Hospital For RehabilitationPlatelet mean volume (Bld) [Entitic vol]9.4 fL7.5 - 11.2 fLChildren'S Hospital For RehabilitationPlatelets (Bld) [#/Vol]348 10*3/uL150 - 400 K/Veterans Health AdministrationRBC (Bld) [#/Vol]5.60 10*6/uL [facility] Hospital For RehabilitationWBC (Bld) [#/Vol]15.0 10*3/uLHigh4.5 - 11.0 K/[facility] AND ELECTRONIC DIFFon 55-84-0147Eegptgparj (Bld) [Volume fraction]49.2 %Rzoxqp16.0-50.0De[facility] HospitalComment on above:Performed By: #### BNP #### [facility] (DEFAULT) [address] [place], [place] [address]Ydbweyhtzx (Bld) [Mass/Vol]16.5 g/zNEbgwgo73.1-17.2MWinner Regional Healthcare CenterComment on above:Performed By: #### BNP #### [facility] (DEFAULT) [address] [place], [place] [address]BGR (RBC) [Entitic vol]87.9 jBDbuysu80.0-99.0[facility] HospitalComment on above:Performed By: #### BNP #### [facility] (DEFAULT) [address] [place], [place] [address]Wxtq Cell Hgb29.5 pgNormalMale: 27.0-35.0, Female: 27.0-34.0 [facility] HospitalComment on above:Performed By: #### BNP #### [facility] (DEFAULT) [address] [place], [place] [address]Baep Cell Hgb Conc33.5 g/nCDbxusi67.0-36.0[facility] HospitalComment on above:Performed By: #### BNP #### [facility] (DEFAULT) [address] [place], [place] [address]Bfzbqslk mean volume (Bld) [Entitic vol]9.4 fLNormal7.5-11.2 [facility] HospitalComment on above:Performed By: #### BNP #### [facility] (DEFAULT) [address] [place], [place] [address]Szeclhuhe (Bld) [#/Vol]348 10*3/oTJrqqgc668-930JftkgceDeuel County Memorial HospitalComment on above:Performed By: #### BNP #### [facility] (DEFAULT) [address] [place], [place] [address]BQF (Bld) [#/Vol]5.60 10*6/uLNormalMale: 4.2-5.6, Female: 3.8-5.3MWinner Regional Healthcare CenterComment on above:Performed By: #### BNP #### [facility] (DEFAULT) [address] [place], [place] [address]NBQ Ukpajjiryhjr40.1 zLXcosql02.7-49.4[facility] Comment on above:Performed By: #### BNP #### [facility] (DEFAULT) [address] [place], [place] [address]DYV (Bld) [#/Vol]15.0 10*3/uLHigh4.5-11.0[facility] Comment on above:Performed By: #### BNP #### [facility] (DEFAULT) [address] [place], [place] [address]LOmy 24-84-9283DX [Catalytic activity/Vol]3371 U/FIhkt74-979 [facility] HospitalComment on above:Order Comment: Plz add to blood diana done yesterday at 16:13 pmPerformed By: #### HEMOGC #### [facility] (DEFAULT) [address] [place], [place] [address]EI [Catalytic activity/Vol]504 U/LHigh30 - 200 U/adison [facility] Interpretation and review of laboratory resultsAbnormalJefferson Davis Community Hospital [Catalytic activity/Vol]504 U/SCuuk45-456UctjzjwDeuel County Memorial HospitalComment on above:Performed By: #### BNP #### [facility] (DEFAULT) [address] [place], [place] [address]PQ ANEURYSM STUDY WITH CONTRAST CHEST/ABDOMEN/PELVISon [id number] ANEURYSM STUDY WITH CONTRAST CHEST/ABDOMEN/PELVISEXAM: [facility] CTA CHEST, CTA ABDOMEN, CTA PELVIS WITH [...] diverticulitis, and colonic neoplasm 7. Normal appendix NLead-Deadwood Regional HospitalCT Chest and Abdomen and Pelvis W contrast Gordo 06-11-2025 IMPRESSION: 1. Normal aorta 2. Negative for pulmonary embolism 3. Clear lungs 4. Small hiatal hernia with fluid in the esophagus suggesting gastroesophageal reflux and/or esophageal dysmotility 5. Moderate amount of fluid in the stomach 6. 1 cm segment of abnormal proximal sigmoid colon. Differential diagnosis includes mild diverticulitis, and colonic neoplasm 7. Normal appendix RADIOLOGYEXAM: [facility] CTA CHEST, CTA ABDOMEN, CTA PELVIS WITH [...] lymphadenopathy. Pelvic bones and hips are normal. RADIOLOGYRoosevelt Madrigal MD - 06/11/2025 EXAM: [facility] CTA CHEST, CTA ABDOMEN, CTA PELVIS WITH [...] diverticulitis, and colonic neoplasm 7. Normal appendix [employer] Phone: [employer] Phone: Radiology Study observation (narrative)[employer] Phone: ct HEAD WITHOUT CONTRASTon 10-23-7723MP HEAD WITHOUT CONTRASTEXAM: [facility] CT HEAD WITHOUT CONTRAST, 06/11/2025 13:10 PM [...] IMPRESSION: 1. Normal brain 2. Ethmoid sinusitis [facility] ServicesCT Head WO contraston [id number]: 1. Normal brain 2. Ethmoid sinusitis RADIOLOGYEXAM: [facility] CT HEAD WITHOUT CONTRAST, 06/11/2025 13:10 PM [...] cells are clear bilaterally. Skull is normal. Roosevelt Mart MD - 06/11/2025 EXAM: [facility] CT HEAD WITHOUT CONTRAST, 06/11/2025 13:10 PM [...] cells are clear bilaterally. Skull is normal. IMPRESSION IMPRESSION: 1. Normal brain 2. Ethmoid sinusitis [employer] Work Phone: Radiology Study observation (narrative)[employer] Work Phone: CT Head WO contrastOrdered By: Roosevelt Madrigal on 40-27-6922Ayuwjis [employer] Work Phone: ECGOrdered By: Cory Proctor on 62-50-9007Gdsflnr [employer] Work Phone: HEPATIC FUNCTION PANELon 68-36-3355Ncbymyc [Mass/Vol] 4.3 g/dL3.5 - 5.2 g/dLMadison HealthALP [Catalytic activity/Vol]87 U/L40 - 150 U/LMadison HealthALT [Catalytic activity/Vol]32 U/L0 - 55 U/LMadison HealthAST [Catalytic activity/Vol]42 U/LHighNINF - 39 U/LMadison HealthBilirubin [Mass/Vol]0.6 mg/dL0.3 - 1.2 mg/dLMadis HealthBilirubin.direct [Mass/Vol]0.1 mg/dL0.0 - 0.5 mg/dLWalling HealthProtein [Mass/Vol]7.5 g/dL6.4 - 8.3 g/dL [facility] For RehabilitationAlbumin [Mass/Vol]4.3 g/dLNormal3.5-5.2MWinner [facility] Healthcare Center Comment on above:Performed By: #### BNP #### [facility] (DEFAULT) [address] [place], [place] [address]HMV [Catalytic activity/Vol]87 U/NImakyw56-117WefklonDeuel County Memorial HospitalComment on above:Performed By: #### BNP #### [facility] (DEFAULT) [address] [place], [place] [address]VUT [Catalytic activity/Vol]32 U/LNormal0-55[facility] HospitalComment on above:Performed By: #### BNP #### [facility] (DEFAULT) [address] [place], [place] [address]WGT [Catalytic activity/Vol]42 U/LHigh<39[facility] Comment on above:Performed By: #### BNP #### [facility] (DEFAULT) [address] [place], [place] [address]Bsnjlwgwj [Mass/Vol]0.6 mg/dLNormal0.3-1.2MWinner Regional Healthcare CenterComment on above:Performed By: #### BNP #### [facility] (DEFAULT) [address] [place], [place] [address]Irbwibjzk.indirect [Mass/Vol]0.1 mg/dLNormal0.0-0.5[facility] HospitalComment on above:Performed By: #### BNP #### [facility] (DEFAULT) [address] [place], [place] [address]Bxhvddt [Mass/Vol]7.5 g/dLNormal6.4-8.3MWinner Regional Healthcare Center Comment on above:Performed By: #### BNP #### [facility] (DEFAULT) [address] [place], [place] [address]HRBINPI, BLOODon 32-18-1181Svyiawducsurqt and review of laboratory resultsNormalWalling HealthLactate [Moles/Vol]1.6 mmol/L0.5 - 2.2 mmol/LMadison HealthUniversity Hospitals Health Systemon HealthLactate [Moles/Vol]1.6 mmol/LNormal0.5-2.2 [facility] HospitalComment on above:Order Comment: Timed for 4pmPerformed By: #### HEMOGC #### [facility] (DEFAULT) [address] [place], [place] [address]Leqrvwzeouwqhz and review of laboratory resultsAbnormalWalling Health Work Phone: Lactate [Moles/Vol]9.4 mmol/LCritically high0.5 - 2.2 mmol/LMadison [facility] Work Phone: Comment on above:Lactate results >/= 2.0 mmol/L should be followed up with a measurement 2 hours later for patients with suspicion of sepsis.[facility] [employer] Phone: Lactate [Moles/Vol]9.4 mmol/LCritically high0.5-2.2 [facility] HospitalComment on above:Result Comment: Lactate results >/= 2.0 mmol/L should be followed up with a measurement 2 hours later for patients with suspicion of sepsis.Performed By: #### HEMOGC #### [facility] (DEFAULT) [address] [place], [place] [address]Czpebrmblpvkxl and review of laboratory resultsAbnormalWalling [employer] Work Phone: Lactate [Moles/Vol]19.6 mmol/LCritically high0.5 - 2.2 mmol/LMdayton osteopathic hospital [employer] Phone: Comment on above:Lactate results >/= 2.0 mmol/L should be followed up with a measurement 2 hours later for patients with suspicion of sepsis.Walling [employer] Phone: Lactate [Moles/Vol]19.6 mmol/LCritically high0.5-2.2 [facility] HospitalComment on above:Result Comment: Lactate results >/= 2.0 mmol/L should be followed up with a measurement 2 hours later for patients with suspicion of sepsis.Performed By: #### LACT #### [facility] (DEFAULT) [address] [place], [place] [address]CVBSPTZAFzk 31-27-9413Vnjkoymek [Mass/Vol]4.8 mg/dLHigh1.6 - 2.6 mg/dLChildren'S Hospital For RehabilitationMagnesium [Mass/Vol]4.8 mg/dLHigh1.6-2.6MWinner Regional Healthcare CenterComment on above:Performed By: #### BNP #### [facility] (DEFAULT) [address] [place], [place] [address]XWUGFY DIFFon 19-34-2247Igqi form neutrophils (Bld) [#/Vol]1.95 10*3/uLHigh0.00 - 0.70 K/uLWalling [employer] Work Phone: Band form neutrophils/100 WBC (Bld)13 %[facility] [employer] Phone: Eosinophils (Bld) [#/Vol]0.15 10*3/uLK\[facility] [employer] Phone: Eosinophils/100 WBC (Bld)1 %[facility] [employer] Phone: Interpretation and review of laboratory results AbnormalWalling [employer] Phone: Lymphocytes (Bld) [#/Vol]3.15 10*3/uL1.00 - 4.80 K/uL [employer] Phone: Lymphocytes/100 WBC (Bld)21 %[employer] Phone: Manual differential comment Denny (Bld) [Interp]Specimen integrity checked. Platelets Adequate [employer] Phone: Metamyelocytes (Bld) [#/Vol]0.15 10*3/uL0.00 - PINF [email or web address] Phone: Metamyelocytes/100 WBC (Bld)1 %[employer] Phone: Monocytes (Bld) [#/Vol]0.30 10*3/uL0.20 - 0.40 K/uL [employer] Phone: Monocytes/100 WBC (Bld)2 %[employer] Phone: Neutrophils (Bld) [#/Vol]9.30 10*3/uLHigh1.80 - 7.70 [employer]theresa.[employer]/[facility] CenterRegaalo Phone: Segmented neutrophils/100 WBC (Bld)62 %[employer] Phone: WBC (Bld) [#/Vol]15.00 10*3/[facility] CenterYik Yak Phone: [place]entervilleRegaalo Phone: Abs Bands Manual1.95 K/uLHigh0.00-0.70[facility] HospitalComment on above:Performed By: #### BNP #### [facility] (DEFAULT) [address] [place], [place] [address]Gkf Eos Manual0.15 K\uLNormalDeuel County Memorial HospitalComment on above:Performed By: #### BNP #### [facility] (DEFAULT) [address] [place], [place] [address]Yzx Lymph Manual3.15 K/uLNormal1.00-4.80[facility] Comment on above:Performed By: #### BNP #### [facility] (DEFAULT) [address] [place], [place] [address]Wud Elliott Manual0.15 K/uLNormal>=0.00[facility] Comment on above:Performed By: #### BNP #### [facility] (DEFAULT) [address] [place], [place] [address]Jbs Bent Manual0.30 K/uLNormal0.20-0.40[facility] Comment on above:Performed By: #### BNP #### [facility] (DEFAULT) [address] [place], [place] [address]Gin Segs Manual9.30 K/uLHigh1.80-7.70[facility] Comment on above:Performed By: #### BNP #### [facility] (DEFAULT) [address] [facility] [place] [address]Feloeffavsm % Manual1 %[facility] HospitalComment on above:Performed By: #### BNP #### [facility] (DEFAULT) [address] [facility], [place] [address]Garzhewljw % Dravha59 %[facility] HospitalComment on above:Performed By: #### BNP #### [facility] (DEFAULT) [address] [facility], [place] [address]Cyxpjwiowebyy % Manual1 %[facility] HospitalComment on above:Performed By: #### BNP #### [facility] (DEFAULT) [address] [facility], [place] [address]Yrnhwctr % Manual2 %[facility] HospitalComment on above:Performed By: #### BNP #### [facility] (DEFAULT) [address] [facility], [place] [address]Urxdojwohm Band % Rdacug31 %[facility] HospitalComment on above:Performed By: #### BNP #### [facility] (DEFAULT) [address] [facility], [place] [address]Wsztfiunnx Segmented Kehtbu54 %[facility] Comment on above:Performed By: #### BNP #### [facility] (DEFAULT) [address] [facility], [place] [address]Lgpmckyz CommentsNormalWinner Regional Healthcare Center HospitalComment on above: Result Comment: Specimen integrity checked. Platelets AdequatePerformed By: #### BNP #### [facility] (DEFAULT) [address] [place], [place] [address]ZUS Count15.00 K/uLNormRoyal C. Johnson Veterans Memorial HospitalComment on above:Performed By: #### BNP #### [facility] (DEFAULT) [address] [place], [place] [address]Tv Panel Informationon 63-29-0214Mjntyncoguqseq and review of laboratory resultsAbMorton Plant HospitalNINOrdered By: Jes Gillespie on 73-54-0584Nerqkovfcyfgxj and review of laboratory resultsAbnoMercy Health Perrysburg Hospitaln I.cardiac DL <= 0.01 ng/mL [Mass/Vol]0.180 ng/mL Critically highNINF - 0.033 ng/mLChildren'S Hospital For RehabilitationComment on above:0.034-0.110 INDETERMINATE >0.120 DIAGNOSTIC [facility] 37-40-0794Vgkpitxu I.cardiac [Mass/Vol]0.180 ng/mL Critically high<0.033De[facility] HospitalComment on above:Order Comment: Draw first Troponin 6 hours after initial draw.Result Comment: 0.034-0.110 INDETERMINATE >0.120 DIAGNOSTICPerformed By: #### BNP #### [facility] (DEFAULT) [address] [place], [place] [address]Skvdqavytcvlsv and review of laboratory resultsAbMadison Health Work Phone: Troponin I.cardiac DL <= 0.01 ng/mL [Mass/Vol]0.142 ng/mLCritically highNINF - 0.033 ng/mLChildren'S Hospital For Rehabilitation Work Phone: Comment on above:0.034-0.110 INDETERMINATE >0.120 DIAGNOSTIC [facility] Phone: Troponin I.cardiac [Mass/Vol]0.142 ng/mLCritically high<0.033De[facility] HospitalComment on above:Result Comment: 0.034-0.110 INDETERMINATE >0.120 DIAGNOSTICPerformed By: #### TROP #### [facility] (DEFAULT) [address] [place], [place] [address]Nflnugzroxlkyg and review of laboratory resultsNormKettering Health Springfield Phone: Troponin I.cardiac DL <= 0.01 ng/mL [Mass/Vol]ng/mL NINF - 0.033 ng/mLDunlap Memorial Hospital Phone: Comment on above:0.034-0.110 INDETERMINATE >0.120 DIAGNOSTIC [facility] Phone: Troponin I.cardiac [Mass/Vol]ng/mLNormal<0.033[facility] HospitalComharper university hospital on above:Result Comment: 0.034-0.110 INDETERMINATE >0.120 DIAGNOSTICPerformed By: #### HEMOGC #### [facility] (DEFAULT) [address] [place], [place] [address]UFWcr 57-09-6532Myioltuysdehyx and review of laboratory results AbnormalRiverside Methodist Hospital Qn7.255 m[IU]/LHighChoctaw Health Center, High Sensitivity7.255 uIU/mLHigh0.350-4.940[facility] HospitalComment on above:Performed By: #### BNP #### [facility] (DEFAULT) [address] [place], [place] [address]XEVKU CULTUREon 05-77-3243Jxffsyh, UrineMixed genital milton isolated. These superficial bacteria are not indicative of a urinary tract infec tion. No further organism identification is warranted on this specimen.Normal [facility] on above:Order Comment: For indwelling catheters, specimen collection is acceptable on catheter day 1 and 2 only. Celis top vacutainer. Urine must be to the fill line to process (4mls). If minimum volume, sendurine in a yellow top vacutainer tube.Result Comment: If clinically indicated, recollect clean-catch, mid-stream urine and transfer immediately to Urine Culture Transport Tube. THIS TEST WAS PERFORMED AT: [facility] [place] [address] [address] [facility] [address] ANASTASIA LUBIN M.D.Performed By: #### UR #### [facility] (DEFAULT) [address] [place], [place] [address]Qvcrdu:URINENormalMadison County HospitalComment on above:Order Comment: For indwelling catheters, specimen collection is acceptable on catheter day 1 and 2 only. Celis top vacutainer. Urine must be to the fill line to process (4mls). If minimum volume, sendurine in a yellow top vacutainer tube. Performed By: #### UR #### [facility] (DEFAULT) [address] [place], [place] [address]AovfjtAGIJSVqaluoYekovor County HospitalComharper university hospital on above:Order Comment: For indwelling catheters, specimen collection is acceptable on catheter day 1 and 2 only. Celis top vacutainer. Urine must be to the fill line to process (4mls). If minimum volume, sendurine in a yellow top vacutainer tube. Performed By: #### UR #### [facility] (DEFAULT) [address] [place], [place] [address]ZSGQP DIPSTICK WITH REFLEX MICROSCOPYOrdered By: Caroline Reynolds on 69-95-3031Ivckqxhgva (U)ClearClearMadison HealthBilirubin Ql (U)Negative NegativeMadison HealthColor (U)YellowYellowMadison HealthGlucose Test strip (U) [Mass/Vol]NegativeNegativeMadison HealthInterpretation and review of laboratory resultsAbnormalMadison HealthKetones (U) [Mass/Vol]NegativeNegativeMadison HealthLeukocyte esterase Test strip Ql (U)NegativeNegativeMadison HealthNitrite Ql (U)NegativeNegativeMadison HealthpH (U)6.0 [pH][facility] Hospital For RehabilitationProtein (U) [Mass/Vol]100 mg/dLAbnormalNegative mg/dLMadis HealthRBC (U) [#/Vol]Moderate AbnormalNegativeMadison HealthSpecific gravity (U) [Rel density]High1.000 - 1.030Madison HealthUrobilinogen (U) [Mass/Vol]0.2 E.U./dL0.2 - 1.0MadisGenesis HospitalURINE DIPSTICK WITH REFLEX MICROSCOPYon 08-17-3703Dvquovxgwh (U) ClearNormalClearDeuel County Memorial HospitalComment on above:Performed By: #### UASR, UMICR #### [facility] (DEFAULT) [address] [facility], [place] [address]Sonvdordl Ql (U)NegativeNormalNegSpearfish Regional Hospital Comment on above:Performed By: #### NORBERT UMICR #### [facility] (DEFAULT) [address] [facility], [place] [address]Oyxgi UrineModerateAbnormalNegSpearfish Regional Hospital Comment on above:Performed By: #### UASRyan UMICR #### [facility] (DEFAULT) [address] [place], [place] [address]Dkdry (U)YellowNormalYellowDeuel County Memorial HospitalComment on above:Performed By: #### UASRyan UMICR #### [facility] (DEFAULT) [address] [place], [place] [address]Mahajbp Ql (U)NegativeNormalNegSpearfish Regional Hospital Comment on above:Performed By: #### NORBERT UMICR #### [facility] (DEFAULT) [address] [place], [place] [address]Ixugndd Ql (U)NegativeNormalNegSpearfish Regional Hospital Comment on above:Performed By: #### NORBERT UMICR #### [facility] (DEFAULT) [address] [facility], [place] [address]Gxsnudpnx esterase Test strip Ql (U)NegativeNormalNegDakota Plains Surgical CenterComment on above:Performed By: #### NORBERT UMICR #### [facility] (DEFAULT) [address] [place], [place] [address]Ngvdrwzz UrineNegativeNormalNegSpearfish Regional Hospital Comment on above:Performed By: #### NORBERT UMICR #### [facility] (DEFAULT) [address] [facility], [place] [address]pO Urine6.0 pH UnitsNormal5.0-7.0De[facility] HospitalComment on above:Performed By: #### NORBERT UMICR #### [facility] (DEFAULT) [address] [facility], [place] [address]Bhwpgbe Ehgyt561 mg/dLAbnormalNegSpearfish Regional Hospital Comment on above:Performed By: #### UASRyan UMICR #### [facility] (DEFAULT) [address] [place], [place] [address]Divoncav [place] Urine>High1.000-1.030Macentervilleon [facility] Comment on above:Performed By: #### UASR, UMICR #### [facility] (DEFAULT) [address] [place], [place] [address]Ihanavkrogka Urine0.2 E.U./dLNormal0.2-1.0[facility] HospitalComment on above:Performed By: #### UASR, UMICR #### [facility] (DEFAULT) [address] [place], [place] [address]IUHKY MICROSCOPICon 27-22-0936Sezzjwebt sediment LM Ql (Urine sed)<25% = SlightAbnormal(none)[facility] Phone: Bacteria LM Ql (Urine sed)TRACEAbnormalABSENTWalling [employer] Work Phone: Epithelial cells.squamous LM Ql (Urine sed)1/hpf = 1+ 1/hpf = 1+, 2-5/hpf = 2+, 0/hpf = 0+, ABSENTWalling [employer] Work Phone: Fine Granular Casts LM.LPF (Urine sed) [#/Area]Rare Abnormal(none) /[facility] [employer] Work Phone: Hyaline casts (Urine sed) [#/Area]1-2Abnormal(none) /[facility] [employer] Work Phone: Interpretation and review of laboratory results AbnormalWalling [employer] Work Phone: RBC LM.HPF (Urine sed) [#/Area]0-2Madisaint joseph hospital west [employer] Work Phone: WBC LM.HPF (Urine sed) [#/Area]6-9AbnormalWalling [employer] Work Phone: Walling [employer] Work Phone: Amorphous, Urine<25% = SlightAbnormal(none)[facility] HospitalComment on above:Performed By: #### UASR, UMICR #### [facility] (DEFAULT) [address] [place], [place] [address]Ntwbkvwe, UrineTRACEAbnormalABSENTDeuel County Memorial HospitalComment on above:Performed By: #### UASR UMICR #### [facility] (DEFAULT) [address] [place], [place] [address]Aebs Granular CastsRareAbnormal(none)[facility] Comment on above:Performed By: #### UASR, UMICR #### [facility] (DEFAULT) [address] [facility], [place] [address]Vwxvszn casts LM Ql (Urine sed)1-2Abnormal(none)[facility] HospitalComment on above:Performed By: #### UASR, UMICR #### [facility] (DEFAULT) [address] [place], [place] [address]EFP Ihmww7-0Rimjcz8-8Owzmeqo [facility] Medical CenterComment on above: Performed By: #### UASR, UMICR #### [facility] (DEFAULT) [address] [place], [place] [address]Uzxkgxkz Cells1/hpf = 1+Normal1/hpf = 1+, 2-5/hpf = 2+, 0/hpf = 0+, ABSENTWinner Regional Healthcare Center HospitalComment on above:Performed By: #### UASR, UMICR #### [facility] (DEFAULT) [address] [place], [place] [address]JIU Npgld1-3Ieagvsxt0-3Poncvtm County HospitalComment on above: Performed By: #### UASR, UMICR #### [facility] (DEFAULT) [address] [facility], [place] [address]SWNJSM BLOOD GASon 11-01-4412Powt excess Calc (Bld) [Moles/Vol]- 6.3000 mmol/LNo normal range establishedMadis HealthCO2 (Bld) [Partial pressure]46 mm[Hg][facility]'S Hospital For RehabilitationHCO3 (Bld) [Moles/Vol]21 mmol/LNo normal range establishedMadison HealthInterpretation and review of laboratory resultsAbnormal [facility] Hospital For RehabilitationOxygen (Bld) [Partial pressure]25 mm[Hg]No normal range established mmHgMadis HealthOxygen saturation in Blood38 %No normal range establishedMadis HealthpH (Bld)7.27 [pH]Low7.32 - 7.43Madison HealthMadison HealthBase Excess-6.3 mmol/LNormalNo normal range [facility] CenterComharper university hospital on above:Order Comment: Time it with repeat troponinPerformed By: #### GASV5 #### [facility] (DEFAULT) [address] [place], [place] [address]UEZ6 (Bld) [Moles/Vol]21 mmol/LNormalNo normal range established [facility] HospitalComharper university hospital on above:Order Comment: Time it with repeat troponinPerformed By: #### GASV5 #### [facility] (DEFAULT) [address] [place], [place] [address]Rqlyyw saturation in Blood38 %NormalNo normal range established [facility] HospitalComharper university hospital on above:Order Comment: Time it with repeat troponinPerformed By: #### GASV5 #### [facility] (DEFAULT) [address] [place], [place] [address]gTX1, Xuzhdh10 kuNdAxpolx54-52NrpebjvDeuel County Memorial HospitalComharper university hospital on above:Order Comment: Time it with repeat troponinPerformed By: #### GASV5 #### [facility] (DEFAULT) [address] [place], [place] [address]sB, Venous7.27Low7.32-7.43[facility] on above:Order Comment: Time it with repeat troponinPerformed By: #### GASV5 #### [facility] (DEFAULT) [address] [place], [place] [address]xG7, Rpwdgb57 mmHgNormalNo normal range [facility] CenterComharper university hospital on above:Order Comment: Time it with repeat troponin Performed By: #### GASV5 #### [facility] (DEFAULT) [address], [place] [address]Hlgz excess Calc (Bld) [Moles/Vol]-11.12880 mmol/LNo normal range establishedMadis HealthCO2 (Bld) [Partial pressure]35 mm[Hg]LowMadison HealthHCO3 (Bld) [Moles/Vol]15 mmol/LNo normal range establishedChildren'S Hospital For Rehabilitation Interpretation and review of laboratory resultsAbnormalMadison HealthOxygen (Bld) [Partial pressure]87 mm[Hg]No normal range established mmHgChildren'S Hospital For Rehabilitation Oxygen saturation in Blood95 %No normal range establishedChildren'S Hospital For RehabilitationpH (Bld) 7.25 [pH]Low7.32 - 7.43[facility] HealthBase Excess-11.1 mmol/LNormal No normal range establishedDeuel County Memorial HospitalComment on above:Performed By: #### LACT #### [facility] (DEFAULT) [address], [place] [address]FLP7 (Bld) [Moles/Vol]15 mmol/LNormalNo normal range established [facility] on above:Performed By: #### LACT #### [facility] (DEFAULT) [address], [place] [address]Lzdiib saturation in Blood95 %NormalNo normal range established [facility] on above:Performed By: #### LACT #### [facility] (DEFAULT) [address], [place] [address]eUX7, Ovtuiz51 ibDpVtj33-72OkhdavqDeuel County Memorial HospitalComment on above:Performed By: #### LACT #### [facility] (DEFAULT) [address] [place], [place] [address]jP, Venous7.25Low7.32-7.43[facility] HospitalComment on above:Performed By: #### LACT #### [facility] (DEFAULT) [address] [facility], [place] [address]pZ5, Mehiry17 mmHgNormalNo normal range establishedDeuel County Memorial HospitalComharper university hospital on above:Performed By: #### LACT #### [facility] (DEFAULT) [address] [place], [place] [address]IYKUob 27-61-8257DPBJBijkcj Visit (JOVI) SCARLET MAYER ([id number]) 1975 M Date Time Provider Department 05/23/25 11:00 AM YOSEF TAYLOR During your visit today, we recorded the following information about you: Temperature Pulse Respiration Blood pressure 98.3 degrees 76/minute 16/minute 143/90 Weight 106.6 kg Yosef Taylor MD 06/03/2025 6:32 AM Addendum Radiation Oncology - Follow Up Note PATIENT NAME: Scarlet Mayer PATIENT DIAGNOSIS/PATIENT IDENTIFICATION: Mr. Mayer is a 49 year old male who underwent right partial [...] with the head and neck team at [facility] with recommendation to proceed to post-operative radiation therapy to the left neck for local control which he completed on 05/23/2024 (6000 cGy delivered in 30 fractions). INTERVAL HISTORY: Mr. Mayer returns to clinic today for routine follow-up approximately one year after the completion of his radiation treatments and five months since his last visit on 12/13/2024. In the interim, he has been following with Dr. Hill without concerns on his last head and neck examination. He also had repeat imaging with CT neck and chest on 05/16/2025 which was without evidence for local regional or distant disease. Today he reports doing well and continues to note slight tenderness near the ear and inside the mouth which is unchanged and today reports no new sores or ulcers in the mouth. He continues to have dry mouth which is unchanged as well as bland taste. His skin is intact as he continues to use a moisturizer and does his exercises for lymphedema. He reports no new lumps or bumps in the neck with intact range of motion. He endorses stable energy appetite and hydration with stable weight. His TSH levels were found to be elevated at his last evaluation by his primary care physician and he is considering starting supplementation. ALLERGIES ALLERGIES No Known Allergies MEDICATIONS: Current [...] chair in no acute distress. VITALS: BP 143/90 Pulse 76 Temp 98.3 Resp 16 Wt 235 lb 0.2 oz (106.6kg) SpO2 97% KPS: 90 HEENT: NC/AT, anicteric sclera HEART: S1S2 LUNGS: non-labored breathing ABDOMEN: soft MUSCULOSKELETAL: no peripheral edema, moves all extremities. NEURO: no focal deficit; AANDO X3. RADIOLOGIC DATA: CT Neck (05/16/2025) IMPRESSION: No evidence of residual/recurrent disease or pathological cervical chain adenopathy. CT Chest (05/16/2025) IMPRESSION: Stable CT of the chest. No evidence of intrathoracic metastatic disease. ASSESSMENT AND PLAN: Mr. Mayer is a 49 year old male who underwent right partial [...] with the head and neck team at [facility] with recommendation to proceed to post-operative radiation therapy to the left neck for local control which he completed on 05/23/2024 (6000 cGy delivered in 30 fractions). Mr. Mayer is doing well clinically approximately 1 year out from completion of his most recent postoperative radiation therapy to the left neck with no new issues since his last visit. He is without clinical or radiographic evidence of disease recurrence based on his last head and neck examination by Dr. Hill and his recent imaging with CT neck and chest from 05/16/2025. He will continue follow-up/surveillance with Dr. Hill as scheduled and I will plan to see him back in approximately 1 year with repeat imaging. He will follow-up with his primary care physician regarding thyroid evaluation/supplementation. The patie (more content not included)...NormalSamaritan North Health CenterCT CHEST W IVCONon 64-25-3117MI CHEST W IVCON* * *Final Report* * * DATE OF EXAM: May 16 2025 8:36AM [facility] 0539 - CT CHEST W [...] any questions regarding this interpretation, please call [phone]. If you are unable to reach us at the number above, please feel free to contact [facility] eRadiology at [phone]. [id number]_IDCSIACNNormalSumma Health Barberton Campus NECK SOFT TISSUE W IVCONon 19-71-6773VO NECK SOFT TISSUE W IVCON* * *Final Report* * * DATE OF EXAM: May 16 2025 8:36AM [facility] 0013 - CT NECK SOFT [...] any questions regarding this interpretation, please call [phone]. If you are unable to reach us at the number above, please feel free to contact [facility] eRadiology at [phone]. [id number]_IDCSIACNNormalSamaritan North Health CenterCNOVon 42-54-2394EQMI Office Visit (RADTSA) SCARLET MAYER ([id number]) 1975 M Date Time Provider Department 12/13/24 [...] with the head and neck team at [facility] with recommendation to proceed to post-operative radiation [...] with the head and neck team at [facility] with recommendation to proceed to post-operative radiation [...] which included preparing to see the patient, alfc-nt-yzbo patient care, and counseling and educating the patient/family/caregiver. This document has been created with the use of voice recognition technology. It may contain inaccuracies, misspellings, inaccurate syntax or inappropriate word context that are a result of the inadequacies/shortcom (more content not included)...NormalSamaritan North Health CenterCT CHEST W IVCONon 76-23-7163PV CHEST W IVCON* * *Final Report* * * DATE OF EXAM: Dec 05 2024 9:19AM [facility] 0539 - CT CHEST W [...] abdomen: Status post cholecystectomy. Small hiatal hernia. Security Flex Utility Officer (topogram) images: Unremarkable. IMPRESSION: No metastatic disease [...] any questions regarding this interpretation, please call [phone]. If you are unable to reach us at the number above, please feel free to contact [facility] eRadiology at [phone]. [id number]_IDCSIACNNormalSamaritan North Health CenterCT NECK SOFT TISSUE W IVCONon 56-93-8990OJ NECK SOFT TISSUE W IVCON* * *Final Report* * * DATE OF EXAM: Dec 05 2024 9:19AM [facility] 0013 - CT NECK SOFT [...] amalgam. Parotid and submandibular spaces are normal. Possum Trapper spaces appear normal. Infrahyoid Neck: Hypopharynx, larynx, [...] in imaged lung apices. Other: Not applicable. Security Flex Utility Officer (topogram) images: No significant findings. IMPRESSION: No [...] any questions regarding this interpretation, please call [phone]. If you are unable to reach us at the number above, please feel free to contact [facility] eRadiology at [phone]. [id number]_IDCSIACNNormalSamaritan North Health CenterCNTHERAPYon 08-21-2024 CNTHERAPYOT/PT/Speech Visit (OTACOF) SCARLET MAYER ([id number]) 1975 M Date Time Provider Department 08/21/24 10:00 AM KOMAL MENDOZA Date Time Provider Department Center 08/21/2024 10:00 AM [id number]-NYXACKOMAL MENDOZA [facility] Reason for Visit: OT Progress Note [4762] Primary Visit Diagnosis:Lymphedema [I89.0] Other Visit Diagnosis:Malignant [...] mg by mouth every 6 hours as needed.NormalSelect Medical Specialty Hospital - [facility] 86-17-7161CALANygngzsnf (RADTSA) SCARLET MAYER ([id number]) 1975 M Date Time Provider Department 08/06/24 [...] 03/28/2024 Encounter Status:Closed by DENISSE ERVIN on 08/06/24NormalCAshtabula General HospitalTHYROID STIMULATING HORMONEon 90-77-8008AZD Qn3.660 m[IU]/LCSelect Medical Specialty Hospital [facility] Qnon 75-11-1088Vsqpguywcsfmmb and review of laboratory resultsNormal [facility], AvonCNOVon 58-22-4456RUXKDfynzu Visit (RADTSA) SCARLET MAYER ([id number]) 1975 M Date Time Provider Department 08/05/24 2:00 PM YOSEF TAYLOR During your visit today, [...] with the head and neck team at [facility] with recommendation to proceed to post-operative radiation [...] with the head and neck team at [facility] with recommendation to proceed to post-operative radiation therapy to the left neck for local control which he completed on 05/23/2024 (6000 cGy delivered in 30 fractions). Mr. Mayer is doing as expected approximately 3 months after completion of his postoperative radiation treatments to the left head and neck havi (more content not included)...NormalClermont County Hospital SerPl-aCncon 17-12-5010VUB Qn3.660 m[IU]/LNormal0.270-4.200Sam[facility]itan North Health CenterComharper university hospital on above:Order Comment: Specimen Type: BLOOD SPECIMENOrdering Facility: [facility] Address:[address] [place], [place] [address]Performed By: #### 3016-3 ####[facility] LABCLIA [id number] [address] STATES OF AMERICACT CHEST W IVCONon 83-45-2150YG CHEST W IVCON* * *Final Report* * * DATE OF EXAM: Jul 29 2024 10:18AM [facility] 0539 - CT CHEST W [...] any questions regarding this interpretation, please call [phone]. If you are unable to reach us at the number above, please feel free to contact [facility] eRadiology at [phone]. [id number]_IDCSIACNNormalSamaritan North Health CenterCT Chest W contrast [place] 40-65-5143WBOZPGKYAI: 1. Stable CT of the chest. Unchanged [...] any questions regarding this interpretation, please call [phone]. If you are unable to reach us at the number above, please feel free to contact [facility] Hospital[facility] at [phone].DIVISION OF RADIOLOGY* * *Final Report* * * DATE OF EXAM: Jul 29 2024 10:18AM [facility] 0539 - CT CHEST W [...] Localizer images: No additional findings. DIVISION OF RADIOLOGYProvider, [facility] [place] - 07/29/2024 * * *Final Report* * * DATE OF EXAM: Jul 29 2024 10:18AM [facility] 0539 - CT CHEST W [...] any questions regarding this interpretation, please call [phone]. If you are unable to reach us at the number above, please feel free to contact [facility] at [phone]. [facility] Chest W contrast IVOrdered By: Ccf Provider on 07-29-2024 [facility] NECK SOFT TISSUE W IVCONon 82-61-7223IT NECK SOFT TISSUE W IVCON* * *Final Report* * * DATE OF EXAM: Jul 29 2024 10:18AM [facility] 0013 - CT NECK SOFT [...] Nasopharyngeal mucosal planes are within normal limits. Possum Trapper spaces are normal. Pterygopalatine fossae are clear [...] any questions regarding this interpretation, please call [phone]. If you are unable to reach us at the number above, please feel free to contact [facility] eRadiology at [phone]. [id number]_IDCSIACNNormalSumma Health Barberton Campus Neck W contrast [place] 01-37-4152GIUUTYNZWY: New soft tissue reticulated stranding in the [...] any questions regarding this interpretation, please call [phone]. If you are unable to reach us at the number above, please feel free to contact [facility] at [phone].DIVISION OF RADIOLOGY* * *Final Report* * * DATE OF EXAM: Jul 29 2024 10:18AM [facility] 0013 - CT NECK SOFT [...] Nasopharyngeal mucosal planes are within normal limits. Possum Trapper spaces are normal. Pterygopalatine fossae are clear [...] or mass. Other: Not applicable. DIVISION OF RADIOLOGYProvider, [facility] [place] - 07/29/2024 * * *Final Report* * * DATE OF EXAM: Jul 29 2024 10:18AM [facility] 0013 - CT NECK SOFT [...] Nasopharyngeal mucosal planes are within normal limits. Possum Trapper spaces are normal. Pterygopalatine fossae are clear [...] any questions regarding this interpretation, please call [phone]. If you are unable to reach us at the number above, please feel free to contact [facility] eRadiology at [phone]. [facility], AvonNo Panel Informationon 88-63-3464Jmbikvoao Study observation (narrative)[facility] HospitalCNPNon 73-49-6972IOHVEcmpmqwpx (OTMNCA) SCARLET MAYER ([id number]) 1975 M Date Time Provider Department 07/25/24 NEHA HINES OTMNKEL During your visit today, we recorded the following information about you: Neha Hines APRN.CNP 07/25/2024 12:56 PM Signed Received forms from [facility] for Flexi touch for patient, however this pt is followed by a provider in [place], not seen by our office in 3 yrs. Requested that Matilda forward their request to his current provider. Neha Hines APRN.EXCEL SPECIALIST Allergies As of Date: 07/25/2024 (No Known [...] 03/28/2024 Encounter Status:Closed by NEHA HINES on 07/25/24[facility] HospitalCNTHERAPYon 70-07-6380FRRQYBLUUAX/PT/Speech Visit (MILLICENTCOF) SCARLET MAYER ([id number]) 1975 M Date Time Provider Department 07/17/24 11:00 AM KOMAL MENDOZA Date Time Provider Department [place] 07/17/2024 11:00 AM [id number]-PMSLSKOMAL MENDOZA [facility] Reason for Visit: Occupational [...] mg by mouth every 6 hours as needed.NormalSamaritan North Health Center CNTHERAPYon 58-48-4665ACPNFCLJTCD/PT/Speech Visit (OTACOF) SCARLET MAYER ([id number]) 1975 M Date Time Provider Department 07/10/24 11:00 AM REJIJONOKOMALPADILLA TEJADA Date Time Provider Department [place] 07/10/2024 11:00 AM 047036-NZAZDKOMAL MENDOZARonnie [place] [facility] Reason for Visit: Occupational Therapy [504] Primary [...] mg by mouth every 6 hours as needed.[facility] Medical CenterMarjan 36-09-4388TJZUQvtrlktqa (HEMTSA) SCARLET MAYER ([id number]) 1975 M Date Time Provider Department 07/04/24 [...] 03/28/2024 Encounter Status:Closed by EDWARDO GARCIA on 07/05/24[facility] TownshipHERAPYon 02-13-9714SNXNVOSVIKB/PT/Speech Visit (OTACOF) SCARLET MAYER ([id number]) 1975 Date Time Provider Department 07/03/24 11:00 AM KOMLA MENDOZA Date Time Provider Department Center 07/03/2024 11:00 AM 451250-OGMPJKOMAL MENDOZA [facility] Reason for Visit: Occupational [...] mg by mouth every 6 hours as needed.NormalSamaritan North Health Center CNCOon 65-16-4172TKOKSbgkyl TextNormalClevelCarolinas ContinueCARE Hospital at Kings MountainCNTHERAPYon 80-82-7962DPCIWAQAYPC/PT/Speech Visit (OTACOF) SCARLET MAYER ([id number]) 1975 M Date Time Provider Department 06/26/24 9:00 AM KOMAL MENDOZA Date Time Provider Department [place] 06/26/2024 9:00 AM 416013-DTMEIKOMAL MENDOZA [facility] Reason for Visit: OT [...] mg by mouth every 6 hours as needed.NormalSamaritan North Health Center CNOVon 00-37-0379TRHHNnsdbz Visit (RADTSA) SCARLET MAYER ([id number]) 1975 M Date Time Provider Department 06/21/24 [...] with the head and neck team at [facility] with recommendation to proceed to post-operative radiation [...] result of the inadequacies/shortcomings of said technology/software. 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 [facility] CenterComment on above:Performed By: #### CBC, BMP #### [place] [address] USAAutomated basophil countOrdered By: Khadar Hill on 97-83-2802Swvmidurw (Bld) [#/Vol]0.1 10*3/uLNormal0.0-0.2FCincinnati Children's Hospital Medical CenterComment on above:Result Comment: PERFORMED BY: [place] [address] PATHOLOGIST SAND ANALYST RACHNA HILL M.D.Performed By: #### CBC, BMP #### [place] [address] USAAutomated blood monocyte countOrdered By: Khadar Hill on 47-80-7079Jncnndwid (Bld) [#/Vol]1.1 10*3/uLHigh0.0-0.8[facility] Medical CenterComment on above:Performed By: #### CBC, BMP #### [place] [address] USAAutomated eosinophil %Ordered By: Khadar Hill on 09-44-3596Aadiugbfdlk/100 WBC (Bld)0.1 %Normal.[facility] Comment on above:Performed By: #### CBC, BMP #### [place] [address] USAAutomated eosinophil countOrdered By: Khadar Hill on 92-54-0599Ugjokijhojk (Bld) [#/Vol]0.0 10*3/uLNormal0.0-0.45[facility] Medical CenterComment on above:Performed By: #### CBC, BMP #### [place] [address] USAAutomated monocyte %Ordered By: Khadar Hill on 52-42-7101Bdjzsykfs/100 WBC (Bld)8.1 %Normal.[facility] Comment on above:Performed By: #### CBC, BMP #### [place] [address] USAAutomated neutrophil %Ordered By: Khadar Hill on 37-08-9706Jbgpauvfzbf/100 WBC (Bld)82.5 %Normal.[facility] Medical CenterComment on above:Performed By: #### CBC, BMP #### [address] [place] [address] USABasic Metabolic Panelon 25-86-0731Xbqrmdeqag Clr Calc Bxpnoubc739.70NormalThe [facility] Physician GroupComment on above:Result Comment: PERFORMED BY: [place] [address] PATHOLOGIST SAND ANALYST RACHNA HILL M.D.Performed By: #### CBC, BMP #### [place] [address] USAGFR/1.73 sq M.predicted MDRD (S/P/Bld) [Vol rate/Area] mL/min/{1.73_m2}NormalThe [facility] Physician GroupComment on above:Performed By: #### CBC, BMP #### [place] [address] USACalcium [Mass/volume] in Serum or PlasmaOrdered By: Khadar Hill on 11-75-8070Anlmipi [Mass/Vol]8.5 mg/dLLow8.6-10.3FCincinnati Children's Hospital Medical CenterComment on above:Performed By: #### CBC, BMP #### [place] [address] USACarbon dioxide, total [Moles/volume] in Serum or Plasma Ordered By: Khadar Hill on 79-54-2599KL6 [Moles/Vol]26.0 mmol/LNormal 21.0-31.0[facility] Medical CenterComment on above:Performed By: #### CBC, BMP #### [place] [address] USAChloride [Moles/volume] in Serum or PlasmaOrdered By: Khadar Hill on 45-64-5786Noxsunkg [Moles/Vol]106 mmol/RJycuys91-635KqlxowxjrSalem Regional Medical CenterComment on above:Performed By: #### CBC, BMP #### [place] [address] USAComplete Blood Count Auto Diffon 58-95-4322Dycj Corpuscular HGB Conc34.5 g/gNXpuswr09.5-35.6The [facility] Physician GroupComment on above:Performed By: #### CBC, BMP #### [facility] [address] [place] [address] USANRBC%0.0 /100{WBC}Normal0-0.5The [facility] Physician Group Comment on above:Performed By: #### CBC, BMP #### [facility] [address] [place] [address] USACreatinine [Mass/volume] in Serum or PlasmaOrdered By: Khadar Hill on 47-31-6277Wycuwkyntd [Mass/Vol]1.15 mg/dLNormal0.70-1.30 [facility] CenterComment on above:Performed By: #### CBC, BMP #### [place] [address] USAErythrocyte distribution width [Ratio] by Automated count Ordered By: Khadar Hill on 89-51-5530Dpthkefvown distribution width (RBC) [Ratio]14.5 %Ajkfpl80.0-14.8[facility] Medical CenterComment on above: Performed By: #### CBC, BMP #### [place] [address] USAErythrocytes [#/volume] in Blood by Automated countOrdered By: Khadar Hill on 97-07-3321IQG (Bld) [#/Vol]4.92 10*6/uLNormal3.90-5.60 [facility] CenterComment on above:Performed By: #### CBC, BMP #### [place] [address] USAGlucose [Mass/volume] in Serum or PlasmaOrdered By: Khadar Hill on 70-19-7099Oulrfic [Mass/Vol]102 mg/uEKpwu17-633TnxfpghuwSalem Regional Medical CenterComment on above:ADA recommended reference rangeRandom Glucose Reference Range is dependent on time and content of last meal. Glucose of more than 200 mg/dL in a nonstressed, ambulatory subject supports the diagnosisof Diabetes Mellitus.Result Comment: Random Glucose Reference Range is dependent on time and content of last meal. Glucose of more than 200 mg/dL in a nonstressed, ambulatory subject supports the diagnosis of Diabetes Mellitus. ADA recommended reference rangePerformed By: #### CBC, BMP #### [facility] [address] [place] [address] USAHematocrit [Volume Fraction] of Blood by Automated count Ordered By: Khadar Hill on 62-43-3175Oymlycuxja (Bld) [Volume fraction]42.4 %Oejgmk48.8-50.0[facility] Medical CenterComment on above:Performed By: #### CBC, BMP #### [facility] [address] [place] [id number] USAHemoglobin [Mass/volume] in BloodOrdered By: Khadar Hill on 06-24-1247Onoopnosij (Bld) [Mass/Vol]14.6 g/kDWudnqj70.0-17.0[facility] Medical CenterComment on above:Performed By: #### CBC, BMP #### [facility] [address] [place] [address] USALeukocytes [#/volume] corrected for nucleated erythrocytes in Blood by Automated counOrdered By: Khadar Hill on 22-96-7209BWR corrected for nucl RBC Auto (Bld) [#/Vol]13.2 10*3/uLHigh4.1-10.5FCincinnati Children's Hospital Medical CenterLeukocytes [#/volume] in Blood by Automated countOrdered By: Khadar Hill on 55-78-2528ZEB (Bld) [#/Vol]13.2 10*3/uLHigh4.1-10.5 [facility] CenterComment on above:Performed By: #### CBC, BMP #### [facility] [address] [place] [address] USALymphocytes [#/volume] in Blood by Automated countOrdered By: Khadar Hill on 99-24-4491Vaiwqwnqnlb (Bld) [#/Vol]1.2 10*3/uLNormal 1.00-4.8[facility] Medical CenterComment on above:Performed By: #### CBC, BMP #### [facility] [address] [place] [address] USALymphocytes/100 leukocytes in Blood by Automated count Ordered By: Khadar Hill on 79-53-9096Yssqtponprw/100 WBC (Bld)8.9 %Normal. [facility] Medical CenterComment on above:Performed By: #### CBC, BMP #### [facility] [address]H [Entitic mass] by Automated countOrdered By: Khadar Hill on 31-57-9033OLK (RBC) [Entitic mass]29.7 anXmhogj12.5-35.2FCincinnati Children's Hospital Medical CenterComment on above:Performed By: #### CBC, BMP #### [facility] [address] StreetMCHC Auto (RBC) [Mass/Vol]Ordered By: Khadar Hill on 74-98-3047AWPR (RBC) [Mass/Vol]34.5 g/dL32.5-35.6FCincinnati Children's Hospital Medical CenterMCV [Entitic volume] by Automated countOrdered By: Khadar Hill on 29-76-9344DTK (RBC) [Entitic vol]86.0 dOAkfpxc27.5-101[facility] Medical CenterComment on above:Performed By: #### CBC, BMP #### [facility] [address] [place] [address] USANeutrophils [#/volume] in Blood by Automated countOrdered By: Khadar Hill on 13-37-2229Iejjadleyxq (Bld) [#/Vol]10.9 10*3/uLHigh 1.8-7.7FCincinnati Children's Hospital Medical CenterComment on above:Performed By: #### CBC, BMP #### [facility] [address] [place] [address] USANo Panel InformationOrdered By: Khadar Hill on 84-11-1474Skvkuewsn GFR (CKD-EPI)> 60.0 mL/MinSalem Regional Medical Center [facility] Creatinine Clearance (Smca290.70[facility] Nucleated erythrocytes [Presence] in Blood by Automated countOrdered By: Khadar Hill on 14-99-5677Rqchsywep RBC Auto Ql (Bld)0.0 /100{WBC}0-0.5 [facility] Medical CenterPlatelet mean volume [Entitic volume] in Blood by Automated countOrdered By: Khadar Hill on 53-99-5574Dxtwtlpn mean volume (Bld) [Entitic vol]7.5 fLNormal6.6-10.1FCincinnati Children's Hospital Medical CenterComment on above:Performed By: #### CBC, BMP #### [facility] [address] [place] [address] USAPlatelets [#/volume] in Blood by Automated countOrdered By: Khadar Hill on 11-17-7372Zfvyuhfsc (Bld) [#/Vol]241 10*3/jNMbsdjs925-877 [facility] Medical CenterComment on above:Performed By: #### CBC, BMP #### [facility] [address] [place] [address] USAPotassium [Moles/volume] in Serum or PlasmaOrdered By: Khadar Hill on 16-73-7969Cyqelxrsa [Moles/Vol]4.2 mmol/LNormal3.5-5.1 [facility] CenterComment on above:Performed By: #### CBC, BMP #### [facility] [address] [place] [address] USASerum or plasma anion gap determinationOrdered By: Khadar Hill on 77-49-0228Wxevz gap [Moles/Vol]10.2 mmol/LNormal6.0-15.0 [facility] Medical CenterComment on above:Performed By: #### CBC, BMP #### [facility] [address] [place] [address] USASodium [Moles/volume] in Serum or PlasmaOrdered By: Khadar Hill on 97-21-2772Lnyhli [Moles/Vol]138 mmol/AZuwpuj335-839FtwebgcgdSalem Regional Medical CenterComment on above:Performed By: #### CBC, BMP #### [facility] [address] [place] [address] USAUrea nitrogen [Mass/volume] in Serum or PlasmaOrdered By: Khadar Hill on 80-43-0297Bfml nitrogen [Mass/Vol]18 mg/dLNormal7-25[facility] Medical CenterComment on above:Performed By: #### CBC, BMP #### [facility] [address] [place] [address] [facility]ICAL CENTERLon 27-93-5866RNsfifdzf: [id number] Received: 02/23/24 Status: DAEPravin Porter Num: [id number] Spec Type: Surgical Subm Dr: Khadar Hill [...] Account Attending Physician Scarlet Mayer 48/M 4N [id number] Khadar Hill DO SPEC NUM: [id number] RECD: 02/23/24 STATUS: ANDREA PORTER NUM: [id number] KULDEEP: 02/23/[address]: Khadar Hill DO ENTERED: 02/23/[address] [facility] [address]: SPEC TYPE: Surgical DEPT: S ORDERED: HE/53, Gross/Micro L5/3, Gross/Micro L4/2 ORDERED: HE/53, Gross/Micro L5/3, Gross/Micro L4/2 Supplemental Report Addendum 1 Entered: 03/12/246512 This case was sent to [facility] for consultation. Their diagnosis is as [...] of 8 lymph nodes (1/8), see comment. Specimen: [id number] Received: 02/23/24 Status: ANDREA Porter Num: [id number] Spec Type: Surgical Subm Dr: Khadar Hill DO Tissues: A Tonsils and/or Adenoids (LT LINGUAL TONSIL) B Lymph Node - Regional Resection (LT PRE-FACIAL LN) C Lymph Node - Regional Resection (LT LEVEL 1A/1B) D Lymph Node - Regional Resection (LEVEL 2A/2B) E Lymph Node - Regional Resection (LEVEL 3,4,5) Procedures: HE/53, Gross/Micro L5/3, Gross/Micro L4/2 Patient: Scarlet Mayer [id number] (Continued) Specimen: [id number] Received: 02/23/24 (Continued) Supplemental Report (Continued) Signed (signature on file) Emil Noel MD 02/27/24 1606 Specimen: [id number] Received: 02/23/24 Status: ANDREA Porter Num: [id number] Spec Type: Surgical Subm Dr: Khadar Hill DO Tissues: A Tonsils and/or Adenoids (LT LINGUAL TONSIL) B Lymph Node - Regional Resection (LT PRE-FACIAL LN) C Lymph Node - Regional Resection (LT LEVEL 1A/1B) D Lymph Node - Regional Resection (LEVEL 2A/2B) E Lymph Node - Regional Resection (LEVEL 3,4,5) Procedures: HE/53, Gross/Micro L5/3, Gross/Micro L4/2 Patient: Scarlet Mayer [id number] (Continued) Specimen: [id number] Received: 02/23/24 (Continued) Supplemental Report (Continued) Please see attached consultation report from [facility] for diagnostic details. Addendum Signed (signature on file) Aaron Moore MD 03/12/24 1507 Pathological Diagnosis A, left lingual tonsil, excision: [...] tiny focus of extranodal extension (2 mm) Specimen: [id number] Received: (more content not included)...[facility] Physician GroupCapillary blood glucose measurement by glucometer (mass/volume)Ordered By: Khadar Hill on 81-34-3738Zurctba [Mass/Vol]88 mg/dL NormalFirelands Regional Medical CenterComment on above:Random Glucose Reference Range is dependent on time and content of last meal. Glucose of more than 200 mg/dL in a nonstressed, ambulatory subject supports the diagnosis of Diabetes Mellitus.Result Comment: Random Glucose Reference Range is dependent on time and content of last meal. Glucose of more than 200 mg/dL in a nonstressed, ambulatory subject supports the diagnosis of Diabetes Mellitus. PERFORMED BY: [place] [address] PATHOLOGIST SAND ANALYST RACHNA HILL M.D.Performed By: #### GLULS #### Point of Care testing ,PET tumor subq tx strat sb-mton 82-12-9859YME tumor subq tx strat sb-mt [facility] Main [place] [address] [place] [address] Nuclear Medicine Report Signed Patient: Scarlet Mayer MR#: [id number] : 1975 Acct:[id number] Age/Sex: 48 / M ADM Date: 01/15/24 Loc: Room: Type: [facility] Attending Dr: Khadar Hill DO Copies [...] No residual right- sided lymphadenopathy is appreciated. There is an [...] See Mancera M.D.01/15/2024 3:19 PM Dictation Location: [place] [address] Transcribed By: [facility] 01/15/24 1519 Dictated By: See Mancera II, MD 01/15/24 1503 Signed By: 01/15/24 1519[facility] Physician GroupLon 49-62-4068CIlhxcrfg: [id number] Received: 01/10/24 Status: ANDREA Porter Num: [id number] Spec Type: Cytology Subm Dr: Khadar Hill DO Tissues: A FNA SLIDES PATH (LT NECK MASS) Procedures: S 100, HE/2, Gross/Micro L4, GFAP, AE1-AE3, CK5 6, CK 7, p63, -, Cyto Int and Re, p40, PAPSTN/16 Age/ Patient Sex Location Account Attending Physician Scarlet Mayer 48/M SUNG [id number] Khadar Hill DO SPEC NUM: [id number] RECD: 01/10/24 STATUS: ANDREA PORTER NUM: [id number] KULDEEP: 01/10/241435 [facility] DR: Khadar Hill DO ENTERED: 01/10/[address] [facility] [address]: SPEC TYPE: Cytology DEPT: CHAY ENTERED BY: [id number] RECV BY: [id number] ORDERED: S 100, HE/2, Gross/Micro L4, GFAP, AE1-AE3, CK5 6, CK 7, p63, -, Cyto Int and Re, p40, PAPSTN/16 ORDERED: S 100, HE/2, Gross/Micro L4, GFAP, AE1-AE3, CK5 6, CK 7, p63, -, Cyto Int and Re, p40, PAPSTN/16 Supplemental Report Addendum 1 Entered: 03/13/24 This case was sent to [facility] for consultation. Their diagnosis is as follows: Positive for malignant cells. 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 Please see attached consultation report from [facility] for diagnostic details. Addendum Signed (signature on file) Aaron Moore MD 03/13/24 6773 Pathological Diagnosis Mass, left neck, fine-needle aspiration: Abundant mucoid material with rare groups of atypical epithelial cells, suspicious for recurrent mucoepidermoid carcinoma. Specimen: [id number] Received: 01/10/24 Status: ANDREA Porter Num: [id number] Spec Type: Cytology Subm Dr: Khadar Hill DO Tissues: A FNA SLIDES PATH (LT NECK MASS) Procedures: S 100, HE/2, Gross/Micro L4, GFAP, AE1-AE3, CK5 6, CK 7, p63, -, Cyto Int and Re, p40, PAPSTN/16 Patient: Scarlet Mayer [id number] (Continued) Specimen: [id number] Received: 01/10/24 (Continued) Signed (signature on file) Aaron Moore MD 01/11/24 1823 Specimen: [id number] Received: 01/10/24 Status: ANDREA Porter Num: [id number] Spec Type: Cytology Subm Dr: Khadar Hlil DO Tissues: A FNA SLIDES PATH (LT NECK MASS) Procedures: S 100, HE/2, Gross/Micro L4, GFAP, AE1-AE3, CK5 6, CK 7, p63, -, Cyto Int and Re, p40, PAPSTN/16 Patient: Scarlet Mayer [id number] (Continued) Specimen: [id number] Received: 01/10/24 (Continued) Clinical Information History of low grade Mucoepidermoid Ca Gross Description Received in Cytolyt labeled with the patient's name, date of and left neck mass is <1 ml very pale pink clear fixed fluid. 1 cell blocks are prepared. 16smears stained pap are additionally received. (MT/ut) CPT Codes 23931 [id number] Specimen: [id number] Received: 01/10/24-160 Status: ANDREA Porter Num: [id number] Spec Type: Cytology Subm Dr: Khadar Hill DO Tissues: A FNA SLIDES PATH (LT NECK MASS) Procedures: S 100, HE/2, Gross/Micro L4, GFAP, AE1-AE3, CK5 6, CK 7, p63, -, Cyto Int and Re, p40, PAPSTN/16 Patient: Scarlet Mayer [id number] (Continued) Signed (signature on file) Aaron Moore MD 01/11/[address] [place] [address] Physician GroupCT Chest W contrast Gordo 12-82-0653KZZKSWRDIJ: Stable appearance of the chest. 2 mm [...] any questions regarding this interpretation, please call [phone]. If you are unable to reach us at the number above, please feel free to contact [facility] at [phone].DIVISION OF RADIOLOGY* * *Final Report* * * DATE OF EXAM: May 11 2022 9:22AM [facility] 0539 - CT CHEST W [...] images through the upper abdomen appears stable. Security Flex Utility Officer (topogram) images: Unremarkable. DIVISION OF RADIOLOGYProvider, [facility] [place] - 05/11/2022 * * *Final Report* * * DATE OF EXAM: May 11 2022 9:22AM [facility] 0539 - CT CHEST W [...] images through the upper abdomen appears stable. Security Flex Utility Officer (topogram) images: Unremarkable. IMPRESSION IMPRESSION: Stable appearance of the chest. 2 mm left upper lobe nodules, stable. Transcribe Date/Time: May 11 2022 10:51A Dictated by: ADILENE FALCON MD This examination was interpreted and the report reviewed and electronically signed by: ADILENE FLACON MD on May 11 2022 11:11AM EST Thank you for allowing us to participate in the care of your patient. Should there be any questions regarding this interpretation, please call [phone]. If you are unable to reach us at the number above, please feel free to contact [facility] eRadiology at [phone]. [facility]CT Neck W contrast [place] 82-39-7293AVVQVLNOKG: Slightly increased size of a few left [...] any questions regarding this interpretation, please call [phone]. If you are unable to reach us at the number above, please feel free to contact [facility] eRadiology at [phone].DIVISION OF RADIOLOGY* * *Final Report* * * DATE OF EXAM: May 11 2022 9:22AM [facility] 0013 - CT NECK SOFT [...] changes on the right as noted above. Possum Trapper spaces appear normal. Infrahyoid Neck: Hypopharynx, larynx, [...] cm. Carotid Space: No mass. Slightly improved postoperative/posttreatment stranding in the upper right carotid space [...] which is reported under a separate accession. Security Flex Utility Officer (topogram) images: Noncontributory DIVISION OF RADIOLOGYProvider, [facility] [place] - 05/11/2022 * * *Final Report* * * DATE OF EXAM: May 11 2022 9:22AM [facility] 0013 - CT NECK SOFT [...] changes on the right as noted above. Possum Trapper spaces appear normal. Infrahyoid Neck: Hypopharynx, larynx, [...] cm. Carotid Space: No mass. Slightly improved postoperative/posttreatment stranding in the upper right carotid space [...] which is reported under a separate accession. Security Flex Utility Officer (topogram) images: Noncontributory IMPRESSION IMPRESSION: Slightly increased [...] be any questions rega (more content not included)...[facility] Neck W contrast IVOrdered By: Ccf Provider on 90-14-5178Yhgnrodqq ClinicNo Panel Informationon 82-48-1398Lqkzcdevw Study observation (narrative) [facility] LOW EXT RT WO W CONon 12-50-4931DDW LOW EXT RT WO W CON EXAMINATION: [...] Electronically authenticated by: JUDIE JONES Date: 2021-10-27 20:21[facility] UPPER EXT RT WO W CONon 47-93-9746IJJ UPPER EXT RT WO W CON EXAMINATION: [...] Electronically authenticated by: JUDIE JONES Date: 2021-10-27 20:09[facility] CenterXR FEMUR RTon 33-66-6339GQ FEMUR RTEXAM: XR FEMUR RT HISTORY: Pain COMPARISON: None. [...] Electronically authenticated by: RICARDO BOYD Date: 2021-10-27 19:00[facility] CenterXR FOREARM RT 2Von 40-52-0970LV FOREARM RT 2VEXAM: XR FOREARM RT 2V HISTORY: Pain COMPARISON: [...] No acute bony abnormality. Electronically authenticated by: RICADRO BOYD Date: 2021-10-27 18:59[facility] CenterCT Chest W contrast Gordo 43-84-0156AQSVNYVYTR: Stable CT of the chest. Unchanged appearance [...] any questions regarding this interpretation, please call [phone]. If you are unable to reach us at the number above, please feel free to contact [facility] at [phone].DIVISION OF RADIOLOGY* * *Final Report* * * DATE OF EXAM: Oct 12 2021 9:36AM [facility] 0539 - CT CHEST W [...] No abnormality in the imaged upper abdomen. Security Flex Utility Officer (topogram) images: No additional findings. DIVISION OF RADIOLOGYProvider, [facility] [place] - 10/12/2021 * * *Final Report* * * DATE OF EXAM: Oct 12 2021 9:36AM [facility] 0539 - CT CHEST W [...] No abnormality in the imaged upper abdomen. Security Flex Utility Officer (topogram) images: No additional findings. IMPRESSION IMPRESSION: Stable CT of the chest. Unchanged appearance of left upper lobe 2 mm nodule. No new or enlarging nodules are seen. No evidence of bulky intrathoracic lymphadenopathy. Transcribe Date/Time: Oct 12 2021 10:47A Dictated by: MOI RSOSI MD This examination was interpreted and the report reviewed and electronically signed by: MOI ROSSI MD on Oct 12 2021 11:27AM EST Thank you for allowing us to participate in the care of your patient. Should there be any questions regarding this interpretation, please call [phone]. If you are unable to reach us at the number above, please feel free to contact [facility] eRadiology at [phone]. [facility] Neck W contrast Gordo 29-79-1605XTUKXPOZMP: Stable postoperative and posttreatment changes as discussed. No clear evidence for disease progression/recurrence. Transcribe Date/Time: Oct 12 2021 9:23A Dictated by: VIVIANE BATEMAN MD This examination was interpreted and the report reviewed and electronically signed by: VIVIANE BATEMAN MD on Oct 12 2021 9:38AM EST Thank you for allowing us to participate in the care of your patient. Should there be any questions regarding this interpretation, please call [phone]. If you are unable to reach us at the number above, please feel free to contact [facility] eRadiology at [phone].DIVISION OF RADIOLOGY* * *Final Report* * * DATE OF EXAM: Oct 12 2021 9:19AM [facility] 0013 - CT NECK SOFT TISSUE W IVCON / PROCEDURE REASON: multiple diagnoses * * * * Physician Interpretation * * * * RESULT: CT NECK SOFT TISSUE W IVCON HISTORY: Head and neck cancer (HCC) Malignant neoplasm of head, face and neck (HCC). This information is taken directly from the division order analyst system. TECHNIQUE: Routine neck CT with contrast. [...] view which is at T5-T6. DIVISION OF RADIOLOGYProvider, [facility] [place] - 10/12/2021 * * *Final Report* * * DATE OF EXAM: Oct 12 2021 9:19AM [facility] 0013 - CT NECK SOFT TISSUE W IVCON / PROCEDURE REASON: multiple diagnoses * * * * Physician Interpretation * * * * RESULT: CT NECK SOFT TISSUE W IVCON HISTORY: Head and neck cancer (HCC) Malignant neoplasm of head, face and neck (HCC). This information is taken directly from the division order analyst system. TECHNIQUE: Routine neck CT with contrast. [...] discussed. No clear evidence for disease progression/recurrence. Transcribe Date/Time: Oct 12 2021 9:23A Dictated by: VIVIANE BATEMAN MD This examination was interpreted and the report reviewed and electronically signed by: VIVIANE BATEMAN MD on Oct 12 2021 9:38AM EST Thank you for allowing us to participate in the care of your patient. Should there be any questions regarding this interpretation, please call [phone]. If you are unable to reach us at the number above, please feel free to contact [facility] at [phone]. [facility] Neck W contrast IVOrdered By: Ccf Provider on 10-12-2021 [facility]No Panel Informationon 16-57-1490Qfymbvrnv Study observation (narrative)[facility] Chest W contrast G[place] 76-45-0329VGOTNROKTY: 1. Less than 2 mm left upper [...] any questions regarding this interpretation, please call [phone]. If you are unable to reach us at the number above, please feel free to contact [facility] eRadiology at [phone].DIVISION OF RADIOLOGY* * *Final Report* * * DATE OF EXAM: Jul 16 2021 1:38PM [facility] 0539 - CT CHEST W [...] images through the upper abdomen appear stable. Security Flex Utility Officer (topogram) images: No additional findings. DIVISION OF RADIOLOGYProvider, [facility] [place] - 07/16/2021 * * *Final Report* * * DATE OF EXAM: Jul 16 2021 1:38PM [facility] 0539 - CT CHEST W [...] images through the upper abdomen appear stable. Security Flex Utility Officer (topogram) images: No additional findings. IMPRESSION IMPRESSION: [...] any questions regarding this interpretation, please call [phone]. If you are unable to reach us at the number above, please feel free to contact [facility] at [phone]. [facility] Chest W contrast IVOrdered By: Ccf Provider on 07-16-2021 [facility] Neck W contrast Gordo 07-18-4835PVJWOXMCYN: 1. Interval neck lymph node dissection and [...] any questions regarding this interpretation, please call [phone]. If you are unable to reach us at the number above, please feel free to contact [facility] at [phone].DIVISION OF RADIOLOGY* * *Final Report* * * DATE OF EXAM: Jul 16 2021 1:38PM [facility] 0013 - CT NECK SOFT [...] enhancement or pathological neck lymphadenopathy. DIVISION OF RADIOLOGYProvider, [facility] [place] - 07/16/2021 * * *Final Report* * * DATE OF EXAM: Jul 16 2021 1:38PM [facility] 0013 - CT NECK SOFT [...] any questions regarding this interpretation, please call [phone]. If you are unable to reach us at the number above, please feel free to contact [facility] at [phone]. [facility], [facility]onNo Panel Informationon [id number] Study observation (narrative)[facility] HospitalCYTOLOGYon [id number] #: [id number]* Submitting Physician: JESICA DURAN MD SPECIMEN SUBMITTED A: SOFT TISSUE, RIGHT NECK, FINE NEEDLE ASPIRATION, 22 OUTSIDE SLIDES (C21-213), [facility], [place], [place], (01/05/2021) B: RIGHT NECK MASS LEVEL II, FINE NEEDLE ASPIRATION, 18 OUTSIDE SLIDES (C21-214), [place], [place], (01/06/2021) FINAL DIAGNOSIS A. SOFT TISSUE, RIGHT NECK, FINE NEEDLE ASPIRATION, 22 OUTSIDE SLIDES (C21-213), [place], [place], (01/05/2021): Suspicious for malignancy. B. RIGHT NECK MASS LEVEL II, FINE NEEDLE ASPIRATION, 18 OUTSIDE SLIDES (C21-214), [place], [place], (01/06/2021): Positive for malignant cells. See comment. COMMENT These aspirates show similar features with clusters of squamoid/oncocytoid and mucinous cells in the background of abundant mucus and inflammation. The provided p16 stained smear slide shows reactivity in tumor cells. In comparison to the patient's subsequent ilya dissections that are also available for review at [facility] ([id number], 01/29/2021) the overall morphologic features are consistent with mucoepidermoid carcinoma. Rich Grubbs M.D., PhD (Electronic Signature) SLIDE/BLOCK DESCRIPTION A: 22 Slides [id number]; Cell Block x2, Smears x15, IHC x5. B: 18 Slides [id number]; Cell Block x2, Smears x14, IHC x2. STAINS A: SOFT TISSUE, RIGHT NECK, FINE NEEDLE ASPIRATION, 22 OUTSIDE SLIDES (C21-213), [facility], [place], [place], (01/05/2021) OUTSIDE SLIDES RECEIVED x 22 B: RIGHT NECK MASS LEVEL II, FINE NEEDLE ASPIRATION, 18 OUTSIDE SLIDES (C21-214), [place], [place], (01/06/2021) OUTSIDE SLIDES RECEIVED x 18 Date of Report: 03/22/2021 Date of Procedure: 03/10/2021 Date of Receipt: 03/10/2021 Submitted by: JESICA DURAN MD Location: Diagnostic interpretation performed at [facility], [address] [place] [address]. CLIA Number: [id number] Clinic Reference Lab Comment on above:Performed By: #### C #### See report for performing lab information.SURGICAL PATHOLOGYon 03-10-2021 SURGICAL PATHOLOGY ADDENDUM PRESENT Specimen #: [id number]* Submitting Physician: JESICA DURAN MD FINAL DIAGNOSIS Outside slides [id number], 01/29/2021, [facility] A. Right pharynx, transoral partial pharyngectomy: - [...] in-situ hybridization tests have been determined by [facility]'s [facility] [place] ([facility]) in a manner consistent with CLIA requirements. One or more of these tests have not been cleared or approved by the FDA. [facility] is regulated under CLIA as qualified to perform high-complexity testing. These tests are used for clinical purposes. They should not be regarded as investigational or for research. Rich Grubbs M.D., PhD (Electronic Signature) SPECIMEN SUBMITTED A: 100 SLIDES (W52-0067; A-F) / 11 BLOCKS (S29-0910;D) ADDENDUM Date Ordered: 04/14/2021 Date Reported: 04/14/2021 HPV in situ hybridization for this case was performed at [facility] form the provided block. Addendum Pathologist: Rich Grubbs M.D., PhD Electronic Signature ADDITIONAL PROCEDURE(S) HEAD AND NECK NEXT GENERATION SEQUENCING Date Ordered: 03/12/2021 Date Reported: 03/22/2021 Procedure Results and Interpretation See Below (NOTE) Head and Neck Next Generation Sequencing Laboratory Accession Number: [id number] Case #: [id number] Block #: A1 ([id number] D9) Sample Type: FFPET % Tumor: 90 Result: Positive Summary: The following gene fusion was detected in the submitted specimen: CRTC1 - MAML2. Details: The fusion product is between CRTC1 exon 1 ([id number]) and MAML2 exon 2 (NM_[id number]). Methodology: The Head and Neck Tumor Fusion Analysis by Next Generation Sequencing is a laboratory d (more content not included)...NormalBrecksville Va / [facility] Hospital Reference LabComment on above:Performed By: #### S #### See report for performing lab information.[facility] Surgical Pathology Departmenton [id number] Surgical Pathology DepartmentName [facility] Pathologist: JUWAN GARCIA MD Date of Procedure: 02/12/2021 Date Received: 02/12/2021 Date Reported 02/16/2021 Submitting Physician: NAY TRACY MD Location: [facility] Other External # FINAL DIAGNOSIS Consult case from the [facility] Department of Pathology C2 and - total 40 slides: 1. SOFT TISSUE, RIGHT NECK, FINE NEEDLE ASPIRATION (C2, COLLECTED 01/05/21): - ATYPICAL SQAUMOUS CELLS IN [...] NECK MASS, LEVEL II, FINE NEEDLE ASPIRATION (C2, COLLECTED 01/08/21): --MALIGNANT CELLS DERIVED FROM MUCOEPIDERMOID CARCINOMA, SEE NOTE. NOTE: Immunostain for p16, performed on a smear is positive.. Electronically Signed Out By JUWAN GARCIA MD/CLAUDIO By the signature on this report, the individual or group listed as making the Final Interpretation/Diagnosis certifies that they have reviewed this case. Clinical History: FNA right neck mass Specimens Submitted As: A: [facility] C2 (01/05/2021) B: [facility] C2 (01/06/2021) Slide/Block Description Received from [facility], Dept of Pathology, [address] [place] [address] [place] [address], are total of forty (40) slides, twenty-two (22) slides labeled [id number] and eighteen (18) slides labeled [id number]. Keep Slides: N Slides Returned: N Personal Consult: NNormalHunterdon Medical CenterComment on above:Performed By: #### [facility] #### [facility] Surgical Pathology Department [address] [facility] [id number] Surgical Pathology Departmenton [id number] Surgical Pathology DepartmentName [facility] Pathologist: SANDRA TEMPLE MD Date of Procedure: 02/11/2021 Date Received: 02/11/2021 Date Reported 02/12/2021 Submitting Physician: NAY TRACY MD Location: [facility] Other External # FINAL DIAGNOSIS [facility] [id number] (01/29/2021): RIGHT TRANSORAL PARTIAL PHARYNGECTOMY (A): -- [...] or group listed as making the Final Interpretation/Diagnosis certifies that they have reviewed this case. Clinical History: FNA positive SCC right neck Specimens Submitted As: A: [facility] [id number] (01/29/2021) Slide/Block Description Received from [facility], Dept of Pathology, [address] [place] [address], are one hundred and one slides (101) labeled [id number]. Keep Slides: N Slides Returned: N Personal Consult: Welia HealthComment on above:Performed By: #### [facility] #### [facility] Surgical Pathology Department [address] [facility] [address]Dmweufz Glucometer (BldC) [Mass/Vol]on 84-71-0909Aysvjtb [Mass/Vol]93 mg/dLOhiohealthComment on above:Random Glucose Reference Range is dependent on time and content of last meal. Glucose of more than 200 mg/dL in a nonstressed, ambulatory subject supports the diagnosis of Diabetes Mellitus. Vital Signs Date TimeVital SignValuePerforming ZuijkbiskDyolvbep51-77-9599 12:50-0400Body oslrjrdvktp92.6 [degF]Bubba Urias MD Work Phone: Pricing EngineKettering Health Washington TownshipPzgzng77-46-9080 12:50-0400Diastolic blood gocrgkuz67 mm[Hg]Bubba Urias MD Work Phone: [phone] RehabilitationAicaqm63-12-9539 12:50-0400Heart rate71 /min Bubba Urias MD Work Phone: [facility] RehabilitationAuksga92-06-9100 12:50-0400Respiratory rate20 /minBubba Urias MD Work Phone: [facility] RehabilitationGehfux03-58-7683 12:50-1955OuP2% (BldA) [Mass fraction]96 %Bubba Urias MD Work Phone: [facility] RehabilitationZsothg32-51-9167 12:50-0400Systolic blood zvhpyody414 mm[Hg]Bubba Urias MD Work Phone: [facility] RehabilitationOzntcl50-02-2851 04:30-0400Body mass index (BMI) [Ratio]33.53 kg/m2Bubba Urias MD Work Phone: [facility] RehabilitationGlsfto40-46-7414 04:30-0400Body kg Bubba Urias MD Work Phone: [facility] RehabilitationIepefp50-15-2111 21:43-0400Body qgecco559.8 cm Bubba Urias MD Work Phone: [facility] RehabilitationJtzbrv62-34-2568 14:17-0400Body ogmolb193.8 cm Khadar Hill DO Work Phone: [facility] SpringfieldHzpzxhxfvt38-85-2174 14:17-0400Body mass index (BMI) [Ratio]33 kg/l0Jcpuvojb Murcek DO Work Phone: [facility] SpringfieldIbzhwqrnii58-49-9332 14:17-0400Body wcczeb830.33 kgBeneri Murcek DO Work Phone: [facility] SpringfieldVrzcksntea10-14-0411 13:10-0400Body bpqwuc774.8 cmBeneri Arevalok DO Work Phone: [facility] SpringfieldGoxikaigle33-40-3061 13:10-0400Body mass index (BMI) [Ratio]33 kg/w9Hwwemjpd Murcek DO Work Phone: [facility] SpringfieldWwygnbeojj79-84-2079 13:10-0400Body .33 kgBeneri Murajk DO Work Phone: [phone] SpringfieldCwtynfpmpb67-74-4789 14:31-0400Body mass index (BMI) [Ratio]33.01 kg/m2Yosef Taylor MD Work Phone: [facility]05-02-2025 14:31-0400Body temperature 98.01 [degF]Yosef Taylor MD Work Phone: [facility]05-02-2025 14:31-0400Body .6 kgYosef Taylor MD Work Phone: [facility]05-02-2025 14:31-0400Diastolic blood ounlgpuq47 mm[Hg]Yosef Taylor MD Work Phone: [facility]05-02-2025 14:31-0400Heart rate61 /min Yosef Taylor MD Work Phone: [facility]05-02-2025 14:31-0400Respiratory rate 16 /minScalista Taylor MD Work Phone: [facility]05-02-2025 14:31-4730EyP2% (BldA) [Mass fraction]98 %Yosef Taylor MD Work Phone: [facility]05-02-2025 14:31-0400Systolic blood orexbmsq899 mm[Hg]Yosef Taylor MD Work Phone: [facility]04-18-2025 09:02-0400Body bkucid669.34 [facility]04-18-2025 09:02-0400Body mass index (BMI) [Ratio]32.1 kg/w8NrfuigoxvSalem Regional Medical Center04-18-2025 09:02-0400Body trhppyzcogk66.1 [degF][facility]04-18-2025 09:02-0400Body .32 kgSal[facility]04-18-2025 09:02-0400Diastolic blood nmyxkfuu40 mm[Hg][facility]04-18-2025 09:02-0400 Heart rate71 /minSalem [facility] Medical Center04-18-2025 09:02-8757CrK9% (BldA) [Mass fraction]97 %[facility]04-18-2025 09:02-0400 Systolic blood mm[Hg][facility]04-02-2025 13:16-0400Body pckoqw108.8 cmBerachaeleri Hill DO Work Phone: [facility] SpringfieldTqjogksmmj94-19-2671 13:16-0400Body mass index (BMI) [Ratio]33 kg/j4Ioytwygxeri Arevalok DO Work Phone: [phone]04-02-2025 13:16-0400Body wkuspi549.33 kgBensabinemin Murcek DO Work Phone: [phone] [place], [place] [address]Knriirelpe31-57-2209 14:13-0500Body fodedu587.8 cmBenjamin Murcek DO Work Phone: [phone])[facility] HospitalMem[facility] SpringfieldQqsjcfvogt88-70-8725 14:13-0500Body mass index (BMI) [Ratio]33 kg/h5Ghevxdmq Murcek DO Work Phone: [phone])[facility] [place], [place] [address]Mpqqrmsibh26-94-4920 14:13-0500Body pgezaf923.33 kgBensabinemin Murcek DO Work Phone: [phone] [place], [place] [address]Favfjbadzt04-91-9368 14:39-0500Body .8 cmBensabinemin Murcek DO Work Phone: [phone])[facility]-[address] [place], [place] [address]Qaldihvwxg95-21-9729 14:39-0500Body mass index (BMI) [Ratio]33 kg/l0Azvaxhgy Murcek DO Work Phone: 1(265)[facility]-[address] [place], [place] [address]Gixukrjssg49-73-8982 14:39-0500Body iamkhe962.33 kgBensabinemin Murcek DO Work Phone: [facility] SpringfieldKepbpilykd25-12-9463 13:58-0500Body mass index (BMI) [Ratio]32.48 kg/m2Yosef Taylor MD Work Phone: [facility]12-23-2024 13:58-0500Body temperature 97.59 [degF]Yosef Taylor MD Work Phone: [facility]12-23-2024 13:58-0500Body eyyvsa862.9 kgYosef Taylor MD Work Phone: [facility]12-23-2024 13:58-0500Diastolic blood miirrglh68 mm[Hg]Yosef Taylor MD Work Phone: [facility]12-23-2024 13:58-0500Heart rate67 /min Yosef Taylor MD Work Phone: [facility]12-23-2024 13:58-0500Respiratory rate 16 /minScalista Taylor MD Work Phone: [facility]12-23-2024 13:58-1033AwT0% (BldA) [Mass fraction]98 %Yosef Taylor MD Work Phone: [facility]12-23-2024 13:58-0500Systolic blood uxaitnrw485 mm[Hg]Yosef Taylor MD Work Phone: [facility]11-18-2024 14:22-0500Body rzuvgk157.8 cmBeneri Arevalok DO Work Phone: [place] [address]Jzkpjkpbhz40-37-2320 14:22-0500Body mass index (BMI) [Ratio]33 kg/w8Cwiokwqg Irinak DO Work Phone: [place] [address]Rqqjrybolr41-12-7626 14:22-0500Body gavost619.33 kgBensabinemin Irinak DO Work Phone: [facility] SpringfieldBypvbiistn48-09-9944 10:06-0500Body mass index (BMI) [Ratio]32.35 kg/m2Yosef Taylor MD Work Phone: [facility]11-08-2024 10:06-0500Body temperature 97.11 [degF]Yosef Taylor MD Work Phone: [facility]11-08-2024 10:06-0500Body foezqj508.5 kgYosef Taylor MD Work Phone: [place] [address]-08-2024 10:06-0500Diastolic blood unlydjpr80 mm[Hg]Yosef Taylor MD Work Phone: [facility]11-08-2024 10:06-0500Heart rate76 /min Yosef Taylor MD Work Phone: [facility]11-08-2024 10:06-0500Respiratory rate 16 /minScalista Taylor MD Work Phone: [facility]11-08-2024 10:06-9777UqP1% (BldA) [Mass fraction]97 %Yosef Taylor MD Work Phone: [facility]11-08-2024 10:06-0500Systolic blood gjpwoxuo898 mm[Hg]Yosef Taylor MD Work Phone: [phone]10-14-2024 14:10-0400Body .8 cmBeneri Arevalok DO Work Phone: [phone] SpringfieldIukorbgbyh39-84-9424 14:10-0400Body mass index (BMI) [Ratio]33 kg/o8Erecgkle Irinak DO Work Phone: [phone] SpringfieldCxwlslugws82-92-1980 14:10-0400Body .33 kgBeneri Hill DO Work Phone: [phone] SpringfieldRswquctjmz38-29-1895 15:56-0400Body mass index (BMI) [Ratio]32.7 kg/m2Yosef Taylor MD Work Phone: [phone]10-09-2024 15:56-0400Body temperature 98.29 [degF]Yosef Taylor MD Work Phone: [facility]10-09-2024 15:56-0400Body .6 kgYosef Taylro MD Work Phone: [facility]10-09-2024 15:56-0400Diastolic blood jpsjjwte50 mm[Hg]Yosef Taylor MD Work Phone: [facility]10-09-2024 15:56-0400Heart rate66 /min Yosef Taylor MD Work Phone: [facility]10-09-2024 15:56-0400Respiratory rate 16 /minScalista Taylor MD Work Phone: [facility]10-09-2024 15:56-1956DoW9% (BldA) [Mass fraction]97 %Yosef Taylor MD Work Phone: [facility]10-09-2024 15:56-0400Systolic blood ktigxhxm387 mm[Hg]Yosef Taylor MD Work Phone: [facility]10-02-2024 16:02-0400Body mass index (BMI) [Ratio]32.73 kg/m2Yosef Taylor MD Work Phone: [facility]10-02-2024 16:02-0400Body temperature 64 [degF]Yosef Taylor MD Work Phone: [facility]10-02-2024 16:02-0400Body niqucn603.7 kgYosef Taylor MD Work Phone: [phone]10-02-2024 16:02-0400Diastolic blood gdmtlivc53 mm[Hg]Yosef Taylor MD Work Phone: [phone] [place], [place] [address]10-02-2024 16:02-0400Respiratory rate 16 /minScalista Taylor MD Work Phone: [phone])231-[address] [place], [place] [address]10-02-2024 16:02-5234PhM3% (BldA) [Mass fraction]97 %Yosef Taylor MD Work Phone: [facility]10-02-2024 16:02-0400Systolic blood iknilsux324 mm[Hg]Yosef Taylor MD Work Phone: [facility]09-25-2024 16:06-0400Body mass index (BMI) [Ratio]32.76 kg/m2Yosef Taylor MD Work Phone: [facility]09-25-2024 16:06-0400Body temperature 97.39 [degF]Yosef Taylor MD Work Phone: [facility]09-25-2024 16:06-0400Body ufeuum269.8 kgYosef Taylor MD Work Phone: [facility]09-25-2024 16:06-0400Diastolic blood tyryszif78 mm[Hg]Yosef Taylor MD Work Phone: [facility]09-25-2024 16:06-0400Heart rate64 /min Yosef Taylor MD Work Phone: [place] [address]-25-2024 16:06-0400Respiratory rate 18 /minScalista Taylor MD Work Phone: [facility]09-25-2024 16:06-0742SiN3% (BldA) [Mass fraction]98 %Yosef Taylor MD Work Phone: [place] [address]-25-2024 16:06-0400Systolic blood vlfxiwrs835 mm[Hg]Yosef Taylor MD Work Phone: [facility]09-18-2024 15:40-0400Body mass index (BMI) [Ratio]32.63 kg/m2Yosef Taylor MD Work Phone: [facility]09-18-2024 15:40-0400Body temperature 96.91 [degF]Yosef Taylor MD Work Phone: [facility]09-18-2024 15:40-0400Body xmdzze184.4 kgYosef Taylor MD Work Phone: [facility]09-18-2024 15:40-0400Diastolic blood xpxpeowi26 mm[Hg]Yosef Taylor MD Work Phone: [facility]09-18-2024 15:40-0400Heart rate60 /min Yosef Taylor MD Work Phone: [place] [address]-18-2024 15:40-0400Respiratory rate 16 /minScalista Taylor MD Work Phone: [place] [address]-18-2024 15:40-1664TfE3% (BldA) [Mass fraction]99 %Yosef Taylor MD Work Phone: [place] [address]-18-2024 15:40-0400Systolic blood mm[Hg]Yosef Taylor MD Work Phone: [facility]09-11-2024 15:49-0400Body mass index (BMI) [Ratio]33.04 kg/m2Yosef Taylor MD Work Phone: [facility]09-11-2024 15:49-0400Body temperature 97.39 [degF]Yosef Taylor MD Work Phone: [facility]09-11-2024 15:49-0400Body ptrdep472.7 kgYosef Taylor MD Work Phone: [facility]09-11-2024 15:49-0400Diastolic blood makossop763 mm[Hg]Yosef Taylor MD Work Phone: [facility]09-11-2024 15:49-0400Heart rate68 /min Yosef Taylor MD Work Phone: [facility]09-11-2024 15:49-0400Respiratory rate 18 /minScalista Taylor MD Work Phone: [facility]09-11-2024 15:49-4391CzE3% (BldA) [Mass fraction]97 %Yosef Taylor MD Work Phone: [facility]09-11-2024 15:49-0400Systolic blood lgohdfej834 mm[Hg]Yosef Taylor MD Work Phone: [facility]09-09-2024 14:15-0400Body wmcsah574.8 cmBeelizabeth Irinak DO Work Phone: [facility] SpringfieldVtmmzgkrwz70-52-1489 14:15-0400Body mass index (BMI) [Ratio]33.72 kg/r9Gotrexcv Murcek DO Work Phone: [facility] SpringfieldTiotbxqdlk82-91-6050 14:15-0400Body tdswcy436.59 kgBensabinemin Murcek DO Work Phone: [facility] SpringfieldBuxgpjrgzf48-01-4558 15:12-0400Body mass index (BMI) [Ratio]33.39 kg/m2Yosef Taylor MD Work Phone: [facility]08-29-2024 15:12-0400Body upilhq410.8 kgYosef Taylor MD Work Phone: [facility]08-29-2024 15:12-0400Respiratory rate 18 /minScalista Taylor MD Work Phone: [facility]08-12-2024 14:57-0400Body yqkvub792 cm Dharmesh Ortiz MD Work Phone: [phone]08-12-2024 14:57-0400Body mass index (BMI) [Ratio]33.36 kg/y7OliqbwuDharmesh Ortiz MD Work Phone: [phone]08-12-2024 14:57-0400Body temperature 97.7 [degF]Dharmesh Ortiz MD Work Phone: [phone]08-12-2024 14:57-0400Body mkanla323.7 kgDharmesh Ortiz MD Work Phone: [facility]08-12-2024 14:57-0400Diastolic blood cljghhil05 mm[Hg]Dharmesh Ortiz MD Work Phone: [phone]08-12-2024 14:57-0400Heart rate74 /min Dharmesh Ortiz MD Work Phone: [phone]08-12-2024 14:57-0400Respiratory rate 18 /minDharmesh Ortiz MD Work Phone: [phone]08-12-2024 14:57-1064NiV6% (BldA) [Mass fraction]99 %Dharmesh Ortiz MD Work Phone: [phone] HospitalComharper university hospital on above:YZ12-22-7133 14:57-0400Systolic blood lmarbuat089 mm[Hg]Dharmesh Ortiz MD Work Phone: [facility]08-05-2024 08:58-0400Body mass index (BMI) [Ratio]33.53 kg/h6VzpjmMatt Monreal MD Work Phone: [phone] Izxilj33-54-7878 08:58-0400Body temperature 97.9 [degF]Matt Monreal MD Work Phone: [phone] city hospitaland Icifrp46-33-1555 08:58-0400Body xtghug649 kg Matt Monreal MD Work Phone: [phone] Odmrbh43-95-5194 08:58-0400Diastolic blood mm[Hg]Matt Monreal MD Work Phone: [phone] city hospitaland Xrjrht62-15-6264 08:58-0400Heart rate66 /min Matt Monreal MD Work Phone: [phone] city hospitaland Xoyqhm58-04-8004 08:58-0400Respiratory rate 18 /minMatt Monreal MD Work Phone: [phone] [facility] HospitalMgpvpw58-46-1735 08:58-3501YpG8% (BldA) [Mass fraction]98 %Matt Monreal MD Work Phone: [phone] ClinicComment on above:YM74-51-6643 08:58-0400Systolic blood yiadirax111 mm[Hg]Matt Monreal MD Work Phone: [phone] [facility] Regional HospitalMbpbte93-74-2223 08:00-0400Body temperature 97.8 [degF]MD Tristian Pacheco Work Phone: [facility]07-13-2024 08:00-0400 Diastolic blood lqpsgzap55 mm[Hg]MD Tristian Pacheco Work Phone: [facility]07-13-2024 08:00-0400 Heart rate73 /minMD Tristian Pacheco Work Phone: [facility]07-13-2024 08:00-0400 SaO2% (BldA) [Mass fraction]98 %MD Tristian Pacheco Work Phone: [facility]07-13-2024 08:00-0400 Systolic blood olvlzzou694 mm[Hg]MD Tristian Pacheco Work Phone: [facility]07-13-2024 06:00-0400 Body btzygv948.8 kgMD Tristian Pacheco Work Phone: [facility]07-12-2024 19:59-0400 Respiratory rate12 /minMD Tristian Pacheco Work Phone: [facility]07-12-2024 10:53-0400 Inhaled oxygen flow rate10 L/minMD Tristian Pacheco Work Phone: [facility]07-12-2024 07:47-0400 Body abomzf611.34 cmMD Tristian Pacheco Work Phone: [facility]07-12-2024 07:47-0400 Body mass index (BMI) [Ratio]34.1 kg/m2MD Tristian Pacheco Work Phone: [facility]04-13-2023 10:06-0400 Body dpvudogvest54.69 [degF]Yosef Taylor MD Work Phone: [facility]04-13-2023 10:06-0400Body wiiunq410.86 kgYosef Taylor MD Work Phone: [facility]04-13-2023 10:06-0400Diastolic blood dgqndned09 mm[Hg]Yosef Taylor MD Work Phone: [facility]04-13-2023 10:06-0400Heart rate66 /min Yosef Taylor MD Work Phone: [facility]04-13-2023 10:06-0400Respiratory rate 16 /minScalista Taylor MD Work Phone: [facility]04-13-2023 10:06-5624NdH3% (BldA) [Mass fraction]95 %Yosef Taylor MD Work Phone: [facility]04-13-2023 10:06-0400Systolic blood cozryzjw661 mm[Hg]Yosef Taylor MD Work Phone: [facility]10-03-2022 10:02-0400Body temperature 97.7 [degF]Yosef Taylor MD Work Phone: [facility]10-03-2022 10:02-0400Body xkaqvo746.32 kgYosef Taylor MD Work Phone: [facility]10-03-2022 10:02-0400Diastolic blood rsjlowyy03 mm[Hg]Yosef Taylor MD Work Phone: [phone] [place], [place] [address]10-03-2022 10:02-0400Heart rate69 /min Yosef Taylor MD Work Phone: [phone])943-[address] [place], [place] [address]10-03-2022 10:02-0400Respiratory rate 16 /minScalista Taylor MD Work Phone: [address] [place], [place] [address]10-03-2022 10:02-2767NtF0% (BldA) [Mass fraction]98 %Yosef Taylor MD Work Phone: [address] [place], [place] [address]10-03-2022 10:02-0400Systolic blood rozarccp131 mm[Hg]Yosef Taylor MD Work Phone: [phone] [place], [place] 6355903-11-2022 14:17-0500Body temperature 98.1 [degF]Yosef Taylor MD Work Phone: [address] [place], [place] 62[address]703-11-2022 14:17-0500Body eccnky397.86 kgYosef Taylor MD Work Phone: [address] [place], [place] [address]703-11-2022 14:17-0500Diastolic blood mm[Hg]Yosef Taylor MD Work Phone: [facility]03-11-2022 14:17-0500Heart rate69 /min Yosef Taylor MD Work Phone: [facility]03-11-2022 14:17-0500Respiratory rate 16 /minScalista Taylor MD Work Phone: [facility]03-11-2022 14:17-0397FkA0% (BldA) [Mass fraction]95 %Yosef Taylor MD Work Phone: [facility]03-11-2022 14:17-0500Systolic blood zpodvsbv350 mm[Hg]Yosef Taylor MD Work Phone: [facility] Encounters Encounter DateEncounter TypeCare ProviderFacilityStart: 06-11-2025 End: 76-82-9644Ezykbzeziq and management of inpatientHardiko Adonay GIMENEZ Work Phone: [facility] 1Comment on above:Elevated troponinStart: 06-04-2025 End: 92-97-0874Lggulv outpatient visit 25 minutesBenjamin W Murcek DO Work Phone: noMS [place] OtolaryngologyComment on above: Metastatic cancer to cervical lymph nodes (HCC) (Primary Dx); Salivary gland cancer (HCC); History of neck dissectionStart: 06-04-2025 End: 52-70-2006blwtzagtcqEUVAAICW W MURCEKNot AvailableStart: 06-04-2025 End: 76-89-1621Jpvisu flowsheetBenjamin W Murcek DO Work Phone: noMS Maldonadoy OtolaryngologyStart: 06-04-2025 End: 46-78-7652Flbqov flowsheetBenjamin W Murcek DO Work Phone: noms Duarte OtolaryngologyStart: 05-23-2025 End: 81-53-3295ugipehiqheHJEWRM E BRAUNFacility:[facility] HospitalStart: 19-41-3005evjpdolxveOUYKVC E BRAUNFacility:[facility] HospitalStart: 02-26-2025 End: 97-53-9773Vzbyho flowsheetBenjamin W Murcek DO Work Phone: noms ENT SANDUSKYStart: 02-26-2025 End: 96-47-0762Qcnyvo flowsheetBenjamin W Murcek DO Work Phone: noms ENT SANDUSKYStart: 02-26-2025 End: 63-01-8395Uhmymx outpatient visit 25 minutesBensabinemin W Murcek DO Work Phone: noms ENT SANDUSKYComment on above:Salivary gland cancer (HCC) (Primary Dx); History of neck dissectionStart: 02-26-2025 End: 48-43-5920tjqrbcgxegTIZMVILN W MURCEKNot AvailableStart: 01-08-2025 End: 41-44-0421Rjjyrj flowsheetBenjamin W Murcek DO Work Phone: noms ENT SANDUSKYStart: 01-08-2025 End: 19-46-4346Szbpos flowsheetBenjamin W Murcek DO Work Phone: noms ENT SANDUSKYStart: 01-08-2025 End: 28-33-4990Ybqmzs outpatient visit 25 minutesBenjamin W Murcek DO Work Phone: noms ENT SANDUSKYComment on above: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/HCC) (Primary Dx); 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, face, or neck with unknown primary site (CMS/HCC); History of neck dissectionStart: 01-08-2025 End: 62-15-4984tfjivvkeuaURSPAZIT W MURCEKNot AvailableStart: 12-13-2024 End: 05-93-5541Fykgdyl encounter procedureScalista Taylor MD Work Phone: Radiation OncologyComment on above: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)Start: 12-13-2024 End: 63-66-7081rvaijqiourGRJY RAJANFacility:[facility] HospitalStart: 00-99-2637geaplsfkeuOYQQ RAJANFacility:[facility] Hospitaltart: 11-29-2024 End: 90-80-1843nzosnvmedeMwlwrxlfiGeorgetown [facility] Work Phone: Start: 11-29-2024 End: 43-64-0845Tbugvoe encounter procedureNovant Health [facility] Work Phone: Start: 11-13-2024 End: 65-37-5294srmcxhjmjbMQFJVKCO W MURCEKNot AvailableStart: 11-13-2024 End: 21-82-9002Thbhep outpatient visit 25 minutesBensabinemin W Murcek DO Work Phone: [facility] SANDUSKYComment on above: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/HCC) (Primary Dx); 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, face, or neck with unknown primary site (CMS/HCC)Start: 09-25-2024 End: 16-64-0040Aapukq outpatient visit 25 minutesBenjamin W Murcek DO Work Phone: [facility] SANDUSKYComment on above:Encounter for follow-up surveillance of salivary gland cancer (Primary Dx); 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/HCC); History of neck dissectionStart: 09-25-2024 End: 70-69-5360nxerghtvgcBGMRCRRJ W MURCEKNot AvailableStart: 08-21-2024 End: 07-97-2088duueyphzzyTgnmvcx Lipaj OTR/L Work Phone: Occupational TherapyComment on above:Lymphedema (Primary Dx); Malignant neoplasm of salivary gland (HCC)Start: 08-12-2024 End: 57-01-5491Rxisxb outpatient visit 25 minutesBeneri Hassan Murcek DO Work Phone: noms ENT SANDUSKYComment on above: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/HCC) (Primary Dx); Salivary gland cancer (CMS/HCC)Start: 08-12-2024 End: 69-44-9910qwcwwhzicnNAXRPGZL W MURCEKNot AvailableStart: 08-12-2024 End: 18-61-2556Wgpoiv flowsheetBenjamin W Murcek DO Work Phone: noms ENT SANDUSKYStart: 08-12-2024 End: 93-32-6388Mlgffs flowsheetBenjamin W Murcek DO Work Phone: noms ENT SANDUSKYStart: 08-06-2024 End: 21-76-9995Qkiqsosqm encounterScalista Taylor MD Work Phone: Radiation OncologyComment on above:ResultsStart: 08-05-2024 End: 24-14-7846tdszstnxbpZEEZXS E BRAUNFacility:[facility]tart: 08-05-2024 End: 23-42-1126Jrnqrsr encounter procedureScalista Taylor MD Work Phone: Radiation OncologyComment on above: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)Start: 07-29-2024 End: 44-05-1557rjcyrxbqlkSUEINQ E BRAUNFacility:[facility]tart: 07-29-2024 End: 91-66-5128Ozgibtveiy hospital visit by physicianArrival Time Radiology Work Phone: Radiology Pet CTComment on above: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]Start: 07-25-2024 End: 30-27-4536Pwanmpysk encounterNeha Hines APRN.CNP Work Phone: OtolarynogologyComment on above:OrdersStart: 07-17-2024 End: 53-33-9864gsesoyhnujAbcsgqy Lipaj OTR/L Work Phone: Occupational TherapyComment on above:Lymphedema (Primary Dx); Malignant neoplasm of salivary gland (HCC)Start: 07-10-2024 End: 67-25-3311rtmvnkniplCfgnyhp Lipaj OTR/L Work Phone: Occupational TherapyComment on above:Lymphedema (Primary Dx); Malignant neoplasm of salivary gland (HCC)Start: 07-04-2024 End: 55-27-7691Qvdiepbhs encounterScalista Taylor MD Work Phone: Hematology/OncologyComment on above:OrdersStart: 07-03-2024 End: 78-46-7264iakuhhhchmZrwrhtb Lipaj OTR/L Work Phone: Occupational TherapyComment on above:Lymphedema (Primary Dx)Start: 07-02-2024 End: 06-22-0829eemwrodyzxDpev Rajan MD Work Phone: Radiation OncologyComment on above:Night sweatsStart: 07-01-2024 End: 80-05-3037Nhaxlc outpatient visit 25 minutesBensabinemin W Murcek DO Work Phone: noms ENT SANDUSKYComment on above:Salivary gland cancer (CMS/HCC) (Primary Dx); 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/HCC)Start: 07-01-2024 End: 94-05-2528terwbickfoABVDEMLS W MURCEKNot AvailableStart: 07-01-2024 End: 45-47-3290Hkwddi flowsheetBenjamin W Murcek DO Work Phone: noms ENT SANDUSKYStart: 07-01-2024 End: 20-15-5755Nfbgch flowsheetBenjamin W Murcek DO Work Phone: noms ENT SANDUSKYStart: 06-26-2024 End: 29-76-0584vnwyxactyhKyapoqv Lipaj OTR/L Work Phone: Occupational TherapyComment on above:Lymphedema (Primary Dx); Malignant neoplasm of salivary gland (HCC)Start: 06-21-2024 End: 81-67-2743pqhjmqsrdyTDDL RAJANFacility:[facility] Hospitaltart: 06-21-2024 End: 13-25-3705Ntbkvao encounter Cruz Taylor MD Work Phone: Radiation OncologyComment on above: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); Malignant neoplasm of parotid gland (HCC)Start: 06-04-2024 End: 72-25-1355Hdfylvpex Jesus Alberto Taylor MD Work Phone: Radiation OncologyComment on above:Patient Update (Nurse Call post radiation)Start: 05-27-2024 End: 87-00-8620Ntenzh follow up visit related to original pxBenjamin W Murcek DO Work Phone: NOWI ENT SANDUSKYComment on above: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/HCC) (Primary Dx); Salivary gland cancer (CMS/HCC)Start: 05-27-2024 End: 12-49-0164Lmfxii flowsheetBensabinemin W Manuelcek DO Work Phone: noms ENT SANDUSKYStart: 05-27-2024 End: 43-60-1044Evzjrz flowsheetBensabinemin W Liz DO Work Phone: noms ENT SANDUSKYStart: 05-23-2024 End: 79-99-8782Usnnyuv encounter procedureScalista Taylor MD Work Phone: Radiation OncologyStart: 05-23-2024 End: 77-46-7485Hwmahebvb Oncology NoteScalista Taylor MD Work Phone: Radiation OncologyComment on above:Completion Note Start: 05-22-2024 End: 08-57-6626Txuqkjl encounter procedureScalista Taylor MD Work Phone: Radiation OncologyComment on above: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)Start: 05-15-2024 End: 89-44-8157Wozbeyb encounter procedureScalista Taylor MD Work Phone: Radiation OncologyComment on above: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)Start: 05-08-2024 End: 75-25-9273Nodgvlx encounter procedureScalista Taylor MD Work Phone: Radiation OncologyComment on above: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)Start: 05-01-2024 End: 73-38-8356Rmwehgv encounter procedureScalista Taylor MD Work Phone: Radiation OncologyComment on above: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)Start: 05-01-2024 End: 56-54-4875hhtiruqjtlZhlthwp Reji OTR/L Work Phone: Occupational TherapyComment on above:Lymphedema (Primary Dx); Malignant neoplasm of salivary gland (HCC)Start: 04-25-2024 End: 64-59-4319maixkbichkRryznbo Lipaj OTR/L Work Phone: Occupational TherapyComment on above:Lymphedema (Primary Dx); Malignant neoplasm of salivary gland (HCC)Start: 04-24-2024 End: 37-10-3411Dfprifj encounter procedureScalista Taylor MD Work Phone: Radiation OncologyComment on above: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)Start: 04-22-2024 End: 34-45-8829Ufrtzy follow up visit related to original pxBeneri W Wavecraftsabi DO Work Phone: noms ENT SANDUSKYComment on above: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/HCC) (Primary Dx); History of neck dissectionStart: 04-22-2024 End: 82-69-0439Xkimva flowsheetBenjamin W Murcek DO Work Phone: noms ENT SANDUSKYStart: 04-22-2024 End: 08-09-8702Rdotof flowsheetBenjamin W Wavecraftcesissy DO Work Phone: noms ENT SANDUSKYStart: 04-16-2024 End: 37-46-0571bbslxphsupEtxzrbv Lipaj OTR/L Work Phone: Occupational TherapyComment on above:Lymphedema (Primary Dx); Malignant neoplasm of salivary gland (HCC)Start: 04-11-2024 End: 18-72-3765Vxxciny encounter procedureScalista Taylor MD Work Phone: Radiation OncologyComment on above: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 Occupational TherapyStart: 03-28-2024 End: 72-81-9572Uhrhhxs encounter procedureBrunilda Montalvo OTR/L Work Phone: [facility] Dontae Occupational TherapyComment on above:Lymphedema (Primary Dx); Malignant neoplasm of salivary gland (HCC)Start: 03-25-2024 End: 47-33-6223Gcxzvk outpatient visit 40 minutesDharmesh Ortiz MD Work Phone: Hematology/OncologyComment on above:Malignant neoplasm of parotid gland (HCC)Start: 34-58-2642Uwdemei encounter procedureCcf Provider [facility] DepartmentStart: 03-20-2024 End: 07-59-3369Opnjxayybc hospital visit by physicianScalista Taylor MD Work Phone: Radiology Pet CTStart: 03-20-2024 End: 54-34-8447Vehyfau encounter procedureScalista Taylor MD Work Phone: Radiation OncologyComment on above: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)Start: 81-36-9575Sjtwqhjve Oncology NoteScalista Taylor MD Work Phone: Radiation OncologyComment on above:Simulation Note Start: 03-18-2024 End: 48-79-9138Dicutmr encounter procedureMatt Monreal MD Work Phone: Radiation OncologyComment on above: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); Malignant neoplasm of parotid gland (HCC)Start: 29-91-1242Eawmvfphn encounter Yosef Taylor MD Work Phone: Radiation OncologyComment on above:Orders; Patient Update; Future AppointmentStart: 02-23-2024 End: 90-46-2986Thhemhnmlf and management of inpatientMD Tristian Pachceo Work Phone: [facility] Work Phone: Start: 02-09-2024 End: 84-75-2414Smacrbto ReferredMD Tristian Pacheco Work Phone: [facility]-Pre-Surgical Testing Work Phone: Start: 02-09-2024 End: 55-67-9382lsowrearnfVchsooam MurcekFacility:[facility]: 01-15-2024 End: 19-94-9011Ebypcnj encounter procedureMD Tirstian Pacheco Work Phone: [facility]-Pet Scan Work Phone: Start: 01-15-2024 End: 54-54-6006usvwmkokvzJP Marcia E Braun Work Phone: [facility] Work Phone: Start: 01-10-2024 End: 83-67-5410tnfbuidtnuSebxut E BraunOhiohealth [facility] Work Phone: Start: 01-10-2024 End: 58-15-0444Gnkfbjpj ReferredDO Khadar Hill Work Phone: [facility]-Lab Main [place] Work Phone: Start: 09-18-2023 End: 75-92-6447hmljxhxjicWavwuw Braun Other [facility] [employer] Other Start: 87-77-0784Gqtwuhzzl encounterTristian PachecoPillo [facility]tart: 11-24-2022 End: 40-93-7290Nndhlxd encounter procedureScalista Taylor MD Work Phone: Radiation OncologyComment on above: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)Start: 33-37-5072Vlfzgabbr encounterScalista Taylor MD Work Phone: Radiation OncologyComment on above:Future Appointment Start: 05-16-2022 End: 30-08-7553Llkmtri encounter procedureScalista Taylor MD Work Phone: Radiation OncologyComment on above: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)Start: 05-11-2022 End: 57-08-3558Hkuaiqvstq hospital visit by physicianArrival Time Radiology Work Phone: Radiology Pet CTComment on above:Malignant neoplasm of parotid gland (HCC) [C07]Start: 40-40-5189Lpmaxxkjs encounterScalista Taylor MD Work Phone: Radiation OncologyComment on above:Appointment; Patient QuestionStart: 10-27-2021 End: 35-60-6486unwbzmdklsPKQPKQ RODRIGUEZFacility:Q8Eynww: 10-22-2021 End: 57-25-4248Uhjlwog encounter procedureScalista Taylor MD Work Phone: Radiation OncologyComment on above:Malignant neoplasm of head, face and neck (HCC); Malignant neoplasm of parotid gland (HCC)Start: 10-12-2021 End: 76-73-5824Fvlfhddouw hospital visit by physicianArrival Time Radiology Work Phone: Radiology Pet CTComment on above: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]Start: 07-16-2021 End: 07-33-6874Kjegprfaxv hospital visit by physicianArrival Time Radiology Work Phone: Radiology Pet CTComment on above:Malignant neoplasm of head, face and neck (HCC) [C76.0]Start: 01-22-2021 End: 43-66-7793Fvraiur encounter procedureTristian aPcheco Work Phone: -Pre-Surgical TestingStart: 01-07-2021 End: 72-38-8780Dafbnyd encounter procedureTristian Pacheco Work Phone: -Pet ScanStart: 01-06-2021 End: 65-11-2037Bmtokzds ReferredMarcia Musa Work Phone: -Lab Main CampusStart: 01-05-2021 End: 49-71-7306Drxfvnnh ReferredTristian Pacheco Work Phone: -Lab Main [place] Procedures DateProcedureProcedure DetailPerforming ClinicianStart: 28-96-7924Srykz of [facility] hospitalJosue PALUMBO Work Phone: Start: 32-68-1036Nywypjwzjr spect multiple studiesBubba Urias MD Work Phone: Start: 34-50-7043Vzcr tthrc r-t 2d w/wom-mode compl spec&colr Shawn Urias MD Work Phone: Start: 47-10-6063Keznrstx kinase totalAbdal Ramon OSBORNEBS Work Phone: Start: 05-71-5076Keggt of troponin quantitativeBubba Urias MD Work Phone: Start: 12-45-5844Mcbyi gases any combination ph pco2 po2 co2 gjo9BhxxBubba Urias MD Work Phone: Start: 06-11-2025 End: 52-51-5782Ixsyb metabolic panel calcium totalBubba Urias MD Work Phone: Start: 81-67-9037Tq angiography chest w/contrast/noncontrastBubba Urias MD Work Phone: Start: 06-75-3851Mklrw dip stick/tablet reagent auto microscopyBubba Urias MD Work Phone: Start: 37-63-7766Aemuc dip stick/tablet rgnt auto w/o microscopyBubba Urias MD Work Phone: Start: 62-13-5763Wdncs gases any combination ph pco2 po2 co2 cdi2CduxBubba Urias MD Work Phone: Start: 39-18-0607Om head/brain w/o contrast material Bubba Urias MD Work Phone: Start: 43-90-5675Kon routine ecg w/least 12 lds w/i&r Bubba Urias MD Work Phone: Start: 73-58-1765CSXYDDO (ETHANOL),BLOODBubba Urias MD Work Phone: Start: 33-36-6103JQS AND ELECTRONIC DIFFBubba Urias MD Work Phone: Start: 70-62-4592Ncxjiwxd blood count with white cell differential, automatedBubba Urias MD Work Phone: Start: 06-11-2025 End: 47-55-9231Nbnmxisiizexr metabolic panelBubba Urias MD Work Phone: Start: 94-68-1915KWEKTE DIFFBubba Urias MD Work Phone: Start: 41-97-7548Svbvy of thyroid stimulating hormone tshYosef Taylor MD Work Phone: Start: 91-66-7324Ic soft tissue neck w/contrast Bacilio Taylor MD Work Phone: start: 14-62-5717Dh thorax w/contrast Bacilio Taylor MD Work Phone: start: 26-66-3300Pkprnnhvv neck dissection of cervical lymph nodesMD Tristian Pacheco Work Phone: Start: 58-42-1009Ityugw laryngoscopy with biopsyMD Tristian Pacheco Work Phone: Start: 83-09-6359Pcdglxha emission tomography with computed tomographyMD Tristian Pacheco Work Phone: Start: 12-18-2023H/O: surgeryStatus post radical dissection of neckBeneri Hill DO Work Phone: start: 88-44-1507Xi soft tissue neck w/contrast Bacilio Taylor MD Work Phone: Start: 81-52-1137Jy thorax w/contrast Bacilio Taylor MD Work Phone: Start: 29-65-8863Pfdkq depression screening assessment Yosef Taylor MD Work Phone: Start: 73-37-3709Bm thorax w/contrast Bacilio Taylor MD Work Phone: Start: 14-11-1400Pw soft tissue neck w/contrast Bacilio Taylor MD Work Phone: Start: 81-88-2017Lf soft tissue neck w/contrast Bacilio Taylor MD Work Phone: Start: 93-79-0163Bp thorax w/contrast Bacilio Taylor MD Work Phone: Start: 22-12-7118Ficsriwb emission tomography with computed tomographyTristian Pacheco Work Phone: Start: 88-83-7927Cxwjtep examination of patientTristian Pacheco Other H/O: surgeryStatus post radical dissection of neck Comment on above:Problem List clean-up per request of Phys. EHR CmteH/O: surgery History of neck dissectionBeneri W Murcesissy DO Work Phone: H/O: surgeryHistory of neck dissectionBensabinemin W Murcek DO Work Phone: H/O: surgeryHistory of neck dissectionBensabinemin W Murcek DO Work Phone: H/O: surgeryHistory of neck dissectionBensabinemin W Murcek DO Work Phone: H/O: surgeryHistory of neck dissectionBenjamin W Murcek DO Work Phone: Plan of Treatment DateCare ActivityDetailAuthorStart: 87-99-4325Dbnyq microalbumin profile DTaP,Tdap,Td Vaccine (2 - Tdap)[facility]: 70-97-1536Dkalbbfj ScreeningDiabetes ScreeningMercy Health Lorain Hospitaltart: 35-94-3743Qsqyovwia for malignant neoplasm of colonMercy Health Lorain Hospitaltart: 12-03-2025 End: 60-50-9608Kzloipv encounter huncfdyna50/22/2026 1:15 PM EDT Office Visit [facility] [address] [place] [phone] Khadar Hill W, DO [address] [place] [address] [facility] [place] OtolaryngologyStart: 06-19-2025 End: 32-23-3620Sevly metabolic 2000 panel - Serum or PlasmaBASIC METABOLIC PANEL Lab Routine Lactic acidosis Dehydration MURPHY (acute kidney injury) Expected: , Expires: 06/12/2026[facility] Work Phone: Comment on above:Expected: 06/19/2025, Expires: 06/12/2026Start: 06-04-2025 End: 94-32-4842Rwujaay encounter procedureNOMS ENT SANDUSKYComment on above: ArrivedStart: 05-28-2025 End: 44-40-3900IY Chest W contrast IVCT CHEST W IVCON Radiology Routine Malignant neoplasm of salivary gland (HCC) Expected: 05/28/2025,Expires: 01/12/2026[facility] Work Phone: Comment on above:Expected: 05/28/2025, Expires: 01/12/2026Start: 05-28-2025 End: 02-81-7229KO Neck W contrast IVCT NECK SOFT TISSUE W IVCON Radiology Routine Malignant neoplasm of salivary gland (HCC) Expected: 05/28/2025, Expires: 01/12/2026leveland ClinicComment on above:Expected: 05/28/2025, Expires: 01/12/2026Start: 05-23-2025 End: 88-56-2098Ehmqlao encounter ilxfsidwh20/10/2025 11:00 AM EDT Office Visit Radiation Oncology [address] [address] Yosef Taylor MD [address] [place] [address] CT chest and neckRadiation OncologyComment on above:CT chest and neck Start: 05-16-2025 End: 56-92-6183Wowksnp encounter bxcyrygqr54/03/2025 7:45 AM EDT Appointment Radiology Pet CT [address] [place] [address] CT chest and neckRadiology Pet CTComment on above:CT chest and neckStart: 04-14-2025 COVID-19 VACCINE ( season)COVID-19 VACCINE ( season) [facility]Start: 56-79-1268Gvuyafibp vaccinationNORay County Memorial HospitalStart: 02-19-2025 End: 87-40-1928Ygjyrei encounter maghaegvb59/09/2025 1:30 PM EDT Office Visit [place] [address] [place] [phone] Khadar Hill, DO [address] [place] [address] NOMLinda MALDONADOYStart: 01-08-2025 End: 56-06-6538Lsyftnr encounter procedureNOMS IJEOMA MALDONADOYComment on above: ArrivedStart: 12-12-2024 End: 16-33-1516Abjqarl encounter jcwnhjtuq23/01/2025 10:00 AM EDT Office Visit Radiation Oncology [address] [place] [address] Yosef Taylor MD [address] [place] [place] [address] Follow up after CTRadiation OncologyComment on above:Follow up after CT Start: 12-05-2024 End: 72-99-7790Orezobi encounter ydrwchsfm33/24/2025 8:45 AM EDT Appointment Radiology Pet CT [address] [place] [address] 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]Radiology Pet CTComment on above: 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]Start: 11-13-2024 End: 31-54-7292Hflcqcw encounter vjzryiiyk30/02/2025 1:15 PM EDT Office Visit [place] [address] [place] [phone] Khadar Hill, DO [address] [place] [address] NOM[facility] ENT FUADYStart: 22-43-4545Vodkvpplq for malignant neoplasm of colonCOLORECTAL CANCER SCREENING DISCUSSIONMadison Health Start: 09-25-2024 End: 78-36-0347Ckctczi encounter mdmowyifu76/12/2025 2:15 PM EST Office Visit [facility] IJEOMA [facility] [address] [place] [phone] Khadar Hill, DO [address] [place] [address] [facility] ENT FUADYStart: 08-21-2024 End: 01-46-0033hrvqcytobu09/08/2025 10:00 AM EST OT/PT/Speech Visit Occupational Therapy [address] [place] [address] Komal Mendoza OTR/L [address] [place] [address] Lymphedema Occupational TherapyComment on above:LymphedemaStart: 08-12-2024 End: 77-96-6266Lqowdjb encounter procedureNOMS ENT FUADYComment on above: ArrivedStart: 08-05-2024 End: 15-08-2735Bdevqrs encounter procedureRadiation OncologyComment on above: follow upStart: 08-02-2024 End: 79-61-2242QP Chest W contrast IVCT CHEST W IVCON Radiology Routine 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) Expected: 08/02/2024, Expires: 07/21/2025[facility] Work Phone: Comment on above:Expected: 08/02/2024, Expires: 07/21/2025Start: 08-02-2024 End: 63-37-4872VV Neck W contrast IVCT NECK SOFT TISSUE W IVCON Radiology Routine 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) Expected: 08/02/2024, Expires: 07/21/2025leveland ClinicComment on above:Expected: 08/02/2024, Expires: 07/21/2025Start: 07-29-2024 End: 97-02-9010Xoldftq encounter nhgufzasq07/16/2024 9:15 AM EST Appointment Radiology Pet CT [address] [place] [address] [place] [address] CT Neck and Chest w/IVCRadiology Pet CTComment on above:CT Neck and Chest w/IVCStart: 07-17-2024 End: 22-68-1738rseebxhfwk52/04/2024 11:00 AM EST OT/PT/Speech Visit Occupational Therapy [address] [place] [address] Komal Mendoza, OTR/L [address] [place] [address] Lymphedema Occupational TherapyComment on above:LymphedemaStart: 07-10-2024 End: 11-01-0405jcudbjwzvi43/27/2024 11:00 AM EST OT/PT/Speech Visit Occupational Therapy [address] [place] [address] Komal Mendoza, OTR/L [address] [place] [address] Lymphedema Occupational TherapyComment on above:LymphedemaStart: 07-03-2024 End: 12-49-7740acegrcgmev56/20/2024 11:00 AM EST OT/PT/Speech Visit Occupational Therapy [address] [place] [address] Komal Mendoza, OTR/L [address] [place] [address] Lymphedema Occupational TherapyComment on above:LymphedemaStart: 06-26-2024 End: 23-44-3704cvlpfjiuai21/13/2024 9:00 AM EST OT/PT/Speech Visit Occupational Therapy [address] [place] [address] LipaKomal robbins, OTR/L [address] [place] [address] L ymphedema [I89.0]Occupational TherapyComment on above:Lymphedema [I89.0]Start: 06-21-2024 End: 49-17-4424Fkoykcr encounter rzvpcanyh78/08/2024 10:00 AM EST Office Visit Radiation Oncology [address] [place] [address] Yosef Taylor MD [address] [place] [place] [address] Follow upRadiation OncologyComment on above:Follow upStart: 05-27-2024 End: 47-39-9033Etkfjhw encounter procedureNOMS ENT FUADYComment on above: ArrivedStart: 05-23-2024 End: 58-96-2268Vomscdn encounter fmrukxzns92/10/2024 3:30 PM EDT Appointment Radiation Oncology [address] [place] [place] [address] Neck Radiation OncologyComment on above:NeckStart: 05-22-2024 End: 34-42-7907Xcdftwr encounter procedureRadiation OncologyComment on above: NeckLocation: SA-ON TREATMENT REVStart: 05-21-2024 End: 62-58-4426Gielrjo encounter sevxpcisd56/08/2024 3:30 PM EDT Appointment Radiation Oncology [address] [place] [address] Neck Radiation OncologyComment on above:NeckStart: 05-21-2024 End: 72-66-8365vrlzxhqslkRtldzoqdrmdg TherapyComment on above:Lymphedema [I89.0] Start: 05-20-2024 End: 55-62-4608Cclstiy encounter kvqbwslid72/07/2024 3:30 PM EDT Appointment Radiation Oncology [address] [place] [address] Neck Radiation OncologyComment on above:NeckStart: 05-17-2024 End: 04-36-3838Hqbnrvi encounter otpfbseek71/04/2024 3:30 PM EDT Appointment Radiation Oncology [address] [place] [address] Neck Radiation OncologyComment on above:NeckStart: 05-16-2024 End: 09-99-9234Pdstneh encounter vsvspdoob74/03/2024 3:30 PM EDT Appointment Radiation On[facility] [address] [facility] [place] [address] Neck Radiation OncologyComment on above:NeckStart: 05-15-2024 End: 15-85-4068Fxdkovn encounter procedureRadiation OncologyComment on above: NeckLocation: SA-ON TREATMENT REVStart: 05-15-2024 End: 29-20-1549ecnlgmzprp23/02/2024 9:00 AM EDT OT/PT/Speech Visit Occupational Therapy [address] [facility] [place] [address] Komal Mendoza, OTR/L [address] [place] [address] L ymphedema [I89.0]Occupational TherapyComment on above:Lymphedema [I89.0]Start: 05-14-2024 End: 62-79-6938Zubrsrj encounter vhbpqyovo40/01/2024 3:30 PM EDT Appointment Radiation Oncology [address] [facility] [place] [address] Neck Radiation OncologyComment on above:NeckStart: 05-13-2024 End: 50-93-1089Gqfjonc encounter qznomvnov67/30/2024 3:30 PM EDT Appointment Radiation Oncology [address] [place] [address] Neck Radiation OncologyComment on above:NeckStart: 05-10-2024 End: 45-43-8114Pfvhpkc encounter ijhfgvmox30/27/2024 3:30 PM EDT Appointment Radiation Oncology [address] [place] [address] Neck Radiation OncologyComment on above:NeckStart: 05-09-2024 End: 27-96-4417Nqecisp encounter mrzertdsb45/26/2024 3:30 PM EDT Appointment Radiation Oncology [address] [place] [address] Neck Radiation OncologyComment on above:NeckStart: 05-08-2024 End: 79-78-7863Ypcbhkp encounter procedureRadiation OncologyComment on above: NeckLocation: SA-ON TREATMENT REVStart: 05-08-2024 End: 27-61-1263usdimpcrwv47/25/2024 8:00 AM EDT OT/PT/Speech Visit Occupational Therapy [address] [place] [address] Komal Mendoza, OTR/L [address] [place] [address] L ymphedema [I89.0]Occupational TherapyComment on above:Lymphedema [I89.0]Start: 05-07-2024 End: 20-92-4362Oowfvfj encounter jynpikhzp15/24/2024 3:30 PM EDT Appointment Radiation Oncology [address] [place] [address] Neck Radiation OncologyComment on above:NeckStart: 05-06-2024 End: 93-37-9461Cxhdrpn encounter /23/2024 3:30 PM EDT Appointment Radiation Oncology [address] [place] [address] Neck Radiation OncologyComment on above:NeckStart: 05-03-2024 End: 83-81-0227Shkmzvm encounter mptaxdiav17/20/2024 3:30 PM EDT Appointment Radiation Oncology [address] [place] [address] Neck Radiation OncologyComment on above:NeckStart: 05-02-2024 End: 02-01-3320Jmzkuhh encounter /19/2024 3:30 PM EDT Appointment Radiation Oncology [address] [place] [address] Neck Radiation OncologyComment on above:NeckStart: 05-01-2024 End: 62-68-0966Klbgpbd encounter procedureRadiation OncologyComment on above: NeckLocation: SA-ON TREATMENT REVStart: 05-01-2024 End: 60-51-2638tyysmmiboi68/18/2024 9:00 AM EDT OT/PT/Speech Visit Occupational Therapy [address] [place] [address] Komal Mendoza, OTR/L [address] [place] [address] L ymphedema [I89.0]Occupational TherapyComment on above:Lymphedema [I89.0]Start: 04-30-2024 End: 19-90-3547Tbjjhkg encounter quibqjhif26/17/2024 3:30 PM EDT Appointment Radiation Oncology [address] [place] [address] Neck Radiation OncologyComment on above:NeckStart: 04-29-2024 End: 32-19-2399Inrnmsx encounter ixapvqgdh19/16/2024 3:30 PM EDT Appointment Radiation Oncology [address] [place] [address] Neck Radiation OncologyComment on above:NeckStart: 04-26-2024 End: 21-71-2496Xugdnwp encounter procedureRadiation OncologyComment on above: NeckStart: 04-25-2024 End: 06-06-9311Ejikuwp encounter mbhombjdq18/12/2024 3:30 PM EDT Appointment Radiation Oncology [address] [place] [place] [address] Neck Radiation OncologyComment on above:NeckStart: 04-25-2024 End: 00-99-4910iidtxzvycm05/12/2024 8:00 AM EDT OT/PT/Speech Visit Occupational Therapy [address] [place] [address] Komal Mendoza, OTR/L [address] [place] [address] L ymphedema [I89.0]Occupational TherapyComment on above:Lymphedema [I89.0]Start: 04-24-2024 End: 27-23-4965Qgvvviu encounter procedureRadiation OncologyComment on above: NeckLocation: SA-ON TREATMENT REVStart: 04-23-2024 End: 51-43-8601Xvicztz encounter gheyddypr93/10/2024 3:15 PM EDT Appointment Radiation Oncology [address] [place] [address] Neck Radiation OncologyComment on above:NeckStart: 04-22-2024 End: 99-97-9447Jpxhwra encounter zomigurpb41/09/2024 3:30 PM EDT Appointment Radiation Oncology [address] [place] [place] [address] Neck Radiation OncologyComment on above:NeckStart: 04-22-2024 End: 20-91-4094Zofvuwg encounter fndawoprx26/09/2024 2:15 PM EDT Office Visit [facility] [place] [address] [place] [address] Khadar Hill, DO [address] [place] [address] ArrivedNOMS IJEOMA MASTERSONomment on above:ArrivedStart: 04-19-2024 End: 12-48-8313Fqlfgkl encounter okdsrrjap57/06/2024 12:45 PM EDT Appointment Radiation Oncology [address] [place] [address] Neck Radiation OncologyComment on above:NeckStart: 04-18-2024 End: 92-08-1757Voshumv encounter lyehdqmkn22/05/2024 3:00 PM EDT Appointment Radiation Oncology [address] [place] [place] [address] Neck Radiation OncologyComment on above:NeckStart: 04-17-2024 End: 66-37-1570Rqcydyk encounter procedureRadiation OncologyComment on above: NeckLocation: SA-ON TREATMENT REVStart: 04-16-2024 End: 14-88-7511bjiepajbdq17/03/2024 10:00 AM EDT OT/PT/Speech Visit Occupational Therapy [address] [facility] [place] [address] Komal Mendoza, OTR/L [address] [place] [address] Lymphedema Occupational TherapyComment on above:LymphedemaStart: 65-72-5490Zvxkp-19 Vaccine ( season)Covid-19 Vaccine ()[facility]: 37-37-7962Nlkiv-19 Vaccine ( season)Covid-19 Vaccine ( season)[facility]: 97-14-6298Oymxnaevx vaccinationInfluenza Vaccine (#1)[facility]: 04-11-2024 End: 76-18-6781Osqmbzp encounter procedureRadiation OncologyComment on above:NEW START NECKNEW START NECK - NEEDS 245 OR LATER D/T WORKStart: 04-08-2024 End: 45-44-4070Gadkljf encounter procedureRadiation OncologyComment on above:NEW START NECKNEW START NECK - WOULD LIKE 2:45 OR AFTERStart: 03-28-2024 End: 08-81-4888Zlsmnpt encounter azfkhawaa26/15/2024 8:30 AM EDT OT/PT/Speech Visit 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]Start: 03-25-2024 End: 66-10-3204yuaxmgdihx74/12/2024 3:00 PM EDT Visit (SP) Office Hematology/Oncology [address] [place], [place] [phone] Dharmesh Ortiz MD [address] [place] [address] Malignant neoplasm of parotid glandHematology/OncologyComment on above: Malignant neoplasm of parotid glandStart: 03-18-2024 End: 09-22-6983Kkywqhu encounter iacnlguqr67/05/2024 9:00 AM EDT Office Visit Radiation Oncology [address] [place] [address] Matt Monreal MD [address] [place] [address] Malignant neoplasm of parotid glandRadiation OncologyComment on above:Malignant neoplasm of parotid glandStart: 39-79-0888RusmynhhpHolmes County Joel Pomerene Memorial Hospitaltart: 29-27-3450Cbnoxbjd admissionHolmes County Joel Pomerene Memorial Hospitaltart: 52-08-6377KxmnddxkkHolmes County Joel Pomerene Memorial Hospitaltart: 38-39-3150Zbwrs- 19 Vaccine ( season)Covid-19 Vaccine ( season)[facility]: 40-66-1516Xykswsnqj vaccinationINFLUENZA (Season Ended)[facility]: 66-12-7773Ghkrammzh for malignant neoplasm of colonBrecksville Va [facility] Start: 11-15-2022 End: 52-89-0000QJ CHEST W IVCONCT CHEST W IVCON Radiology Routine Malignant neoplasm of parotid gland (HCC) Expected: 11/15/2022 (Approximate), Expires: 06/15/2023[facility] Work Phone: Comment on above:Expected: 11/15/2022 (Approximate), Expires: 06/15/2023Start: 11-15-2022 End: 27-72-9678Sa soft tissue neck w/contrast materialCT NECK SOFT TISSUE W IVCON Radiology Routine Malignant neoplasm of parotid gland (HCC) Expected: (Approximate), Expires: 06/15/2023[facility] Work Phone: Comment on above:Expected: 11/15/2022 (Approximate), Expires: 06/15/2023Start: 73-09-4779Lalhw depression screening assessment DEPRESSION SCREENINGMercy Health Lorain Hospitaltart: 89-34-7698UFGSYBEZEL ASSESSMENT DEPRESSION ASSESSMENTMercy Health Lorain Hospitaltart: 04-31-7528Ykreycgue vaccination INFLUENZA (#1)[facility]: 41-67-5729ZUKTI-19 VACCINE (4 - Booster for Pfizer series)COVID-19 VACCINE (4 - Booster for Pfizer series)[facility] Start: 09-10-2810WKLEVOJARI ASSESSMENTDEPRESSION ASSESSMENTBrecksville Va / [facility] Start: 26-28-8010Lqersrmoz vaccinationINFLUENZA (#1)[facility]: 81-74-6827Lxzfs panelLIPID SCREENINGMaTrinity Health System West Campusart: 08-96-0982Zfgdu panel Lipid ScreeningMercy Health Lorain Hospitaltart: 90-03-8065HRSPP SCREENLIPID SCREEN [facility]: 12-13-8631Dxotz diphtheria, tetanus and acellular pertussis (DTaP) vaccinationTDAP (ADULT)[facility]Start: 31-29-5215Umgko microalbumin profileDTAP,TDAP,TD (1 - Tdap)[facility]: 12-21-1993 Anxiety ScreeningAnxiety ScreeningMercy Health Lorain Hospitaltart: 00-71-4500Jedmdfsflk ScreeningDepression ScreeningMercy Health Lorain Hospitaltart: 54-19-8441TYPXYBCLO C SCREENINGHEPATITIS C SCREENINGMercy Health Lorain Hospitaltart: 97-97-0510Pcvaimkvs C screeningHepatitis C ScreeningMercy Health Lorain Hospitaltart: 40-73-2018IWL SCREENINGHIV SCREENINGMercy Health Lorain Hospitaltart: 73-14-2416ZEL screeningHIV ScreeningSelect Medical Specialty Hospital - Akronrt: 79-36-3512AXB screeningHIV SCREENING DISCUSSIONChildren'S Hospital For RehabilitationStart: 11-17-5146Zaprmcicv C screeningHEPATITIS C VIRUS SCREENINGChildren'S Hospital For RehabilitationStart: 91-37-1017Nssvoymdn for malignant neoplasm of colonNOMS [facility] HospitalStart: 82-51-4427Etjcggl vaccinationTEPremier Health [facility] End: 26-44-5391Mkubonxm identified in Urine by CultureChildren'S Hospital For Rehabilitation Work Phone: Comment on above:One Time for 1 Occurrences starting 06/11/2025 until 06/11/2025 End: 52-94-4716WY Chest W contrast IVCT CHEST W IVCON Radiology Routine Malignant neoplasm of salivary gland (HCC) 1 Occurrences starting 08/05/2024 until 09/04/2025levelformerly [facility], [facility] ClinicComment on above:1 Occurrences starting 08/05/2024 until 09/04/2025T Guidance for radiation treatment of Unspecified body regionCT SIM PLANNING RADIATION ONCOLOGY Radiology Routine Malignant neoplasm of salivary gland (HCC) Ordered: 03/20/2024[facility] Work Phone: Comment on above:Ordered: 03/20/2024 End: 22-34-2554EG Neck W contrast IVCT NECK SOFT TISSUE W IVCON Radiology Routine Malignant neoplasm of salivary gland (HCC) 1 Occurrences starting 08/05/2024 until 09/04/2025[facility] Work Phone: Comment on above:1 Occurrences starting 08/05/2024 until 09/04/2025 End: 89-27-5710Eb soft tissue neck w/contrast materialCT NECK SOFT TISSUE W IVCON Radiology Routine Malignant neoplasm of parotid gland (HCC) 1 Occurrences starting 10/22/2021 until 11/21/2022[facility] Work Phone: Comment on above:1 Occurrences starting 10/22/2021 until 11/21/2022 End: 12-62-0909Zo thorax w/contrast materialCT CHEST W IVCON Radiology Routine Malignant neoplasm of head, face and neck (HCC) 1 Occurrences starting 10/22/2021 until 11/21/2022[facility] Work Phone: Comment on above:1 Occurrences starting 10/22/2021 until 11/21/2022OUTSIDE SURG PATH SLIDE REVIEWOUTSIDE SURG PATH SLIDE REVIEW Lab Routine Malignant neoplasm of parotid gland (HCC) [facility]: [facility] Work Phone: Comment on above:Ordered: 4Patient Education [facility] Surgical treatment for head and neck cancer Know your Meds [facility] Work Phone: [facility] Work Phone: [facility] Immunizations Immunization DateImmunizationNotesCare XsqqwexwIdnnybfu60-93-5395xfdeamnvzb, tetanus toxoids and pertussis vaccineScalista Taylor MD Work Phone: [facility] HospitalZhidpg62-37-5644KLLDD-12 mRNALaci (Pfizer)MD Tristian Pacheco Work Phone: [facility]03-08-2021COVID-19 mRNA,[id number] (Pfizer)Tristian Pacheco Work Phone: [facility] HospitalUiefar44-84-7169NVMRY-40 mRNA,HFZ286p2 (Pfizer)Tristian Pacheco Work Phone: [facility] HospitalXdecrz88-04-3654hviaxpotj B vaccine, adult Sierra Taylor MD Work Phone: [facility] HospitalOoxgch19-34-5005jwgyvwnku B vaccine, adult Sierra Taylor MD Work Phone: [facility] HospitalClyalk02-84-0954kpcyeyedr B vaccine, adult Sierra Taylor MD Work Phone: [facility] Payers DatePayer CategoryPayerPolicy [id number]'s CompensationBWC Pending O [id number]-pay [id number] Health Insurance [id number] MMO [employer]US [id number] 2015-Present [phone] [address] [place] [address] [id number]. [id number] 2.0.1.852943.3.57[id number] 2..1.867577.3.57[id number] 2..1.659497.3.57[id number] 2..1.601136.3.57[id number] 2..1.839269.3.579.2.050336-35-0584Lbnidxu9362350 2..1.295210.3.57[id number] 2..1.533716.3.57[id number] 2..1.492435.3.57[id number] 2..1.211516.3.57[id number] 2..1.010[id number] 2..1.635614.3.579.2.531 [id number] 2..1.109[id number] 2..1.427916.3.579.2.531 Social History DateTypeDetailFacilityTobacco smoking status NHISUnknown if ever smokedOhiohealth Pickerington Methodist Hospital CtrStart: 27-68-2462Bmp Assigned At BirthMaleFKing's Daughters Medical Center Ohiotart: 01-22-2021 End: 38-61-2603Ymszyiu smoking status NHISEx-smoker (finding)[facility] Start: 05-16-2022 End: 50-19-8087Xrenpfh of tobacco useMercy Health Lorain Hospitaltart: 08-14-1995 End: 75-03-2519Komwduj of tobacco useCurrent smokerMercy Health Lorain Hospitaltart: 08-14-1995 End: 93-61-0606Navrzux of tobacco useCigarette SmokerMercy Health Lorain Hospitaltart: 02-17-2021 End: 57-50-7628Blzwqmiuhh smoked current (pack per day) - Reported0.25[facility] Hospitaltart: 02-17-2021 End: 01-89-8544Jkdjnvt use and exposureSmokeless tobacco non-userMercy Health Lorain Hospitaltart: 10-22-2021 End: 70-88-8288Gdexonl intakeCurrent drinker of alcohol (finding)[facility] Hospitaltart: 37-86-9658Vmc Assigned At BirthNot on fileMercy Health Lorain Hospitaltart: 05-22-2021 End: 26-64-3503Ixxlrsio to SARS-CoV-2 (event)Not sureMercy Health Lorain Hospitaltart: 36-70-3624Mcfao Depression Screening Amjzgyrwwl4Aloauvpkl ClinicStart: 05-88-8969Gpofpyd CommentLast smoked : 5-10 yearsNOMD HealthcareStart: 31-46-2947Ydggqcl Commentcaffeine intake: 1-2 cups per dayASHLEY REGIONAL [facility] HealthcareStart: 11-29-2024 End: 69-92-5331RabVhxg (finding)[facility] Hospitaltart: 00-69-0704Fhjdwfc smoking status NHISNever smoked tobaccoMadis Health Work Phone: Start: 80-29-6309Hojiyatiq beverage intakeLifetime non-drinker (finding)[facility] Phone: How often to you have a drink containing alcohol?Never [facility] Phone: Medical Equipment Procedure CodeEquipment CodeEquipment Original TextEquipment IdentifierDates Direct laryngoscopy with biopsy with microscopeVISTASEAL 4ML FIBRIN SEALANTFDA Start: 77-12-4389Gnnitw laryngoscopy with biopsy with microscopeVISTASEAL 4ML FIBRIN SEALANTFDAStart: 75-54-5890Ihjbmo laryngoscopy with biopsy with microscopeVISTASEAL 4ML FIBRIN SEALANTFDAStart: 25-12-9073Gntgwj laryngoscopy with biopsy with microscopeVISTASEAL 4ML FIBRIN SEALANTFDAStart: 01-29-2021 Direct laryngoscopy with biopsy with microscopeVISTASEAL 4ML FIBRIN SEALANTFDA Start: 01-29-2021 Goals DatePatient GoalDesired Activity/State Functional Status NxzkZcwmkgawziTcxxqcNftuckij88-72-0239Ync you deaf, or do you have serious difficulty hearingNo 06/12/2025 4:24 AM EDGladys Osuna RN NoMadison Hgrsek60-16-9856Vbe you blind, or do you have serious difficulty seeing, even when wearing glassesNo 06/12/2025 4:24 AM EDGladys Osuna RN [facility] Work Phone: [phone] 390-443810-30-2025Do you have serious difficulty walking or climbing stairsNo 06/12/2025 4:24 AM EDGladys Osuna RN NoMadison [facility] Phone: [phone] you have difficulty dressing or bathingNo 06/12/2025 4:24 AM EDGladys Osuna RN NoMad[facility] Phone: [phone]nvph of a physical, mental, or emotional condition, do you have difficulty doing errands alone such as visiting a physician's office or shoppingNo 06/12/2025 4:24 AM EDT Gladys Miller RN [facility] Phone: [phone] score [AUDIT-C]0 06/11/2025 12:41 PM EDT Loren Lucio RNWalling [facility] Work Phone: [phone]jtagsh statusPatient at Baseline [facility] Work Phone: [facility] Work Phone: Mental Status BuinTpikhbmvjyHkumsuZnandblu92-26-1521Bqwkcvp of a physical, mental, or emotional condition, do you have serious difficulty concentrating, remembering, or making decisionsNo 06/12/2025 4:24 AM EDT Gladys Miller RN [facility] Work Phone: [phone]rjigsn functionCognitive Status Patient at BaselineOhiohealth Work Phone: Clinical Notes 02-12-2021 to 06-12-2025 Note Date & BizyBupjYzddaqgz31-21-7453 Nurse Note* Nursing Notes - Dania Singh RN - 06/12/2025 1:44 PM EDT IV removed per policy. Patient signed AMA forms, ambulated to entrance with all personal belongingsat this time. [facility] Phone: [phone] Miscellaneous Notes* Nursing Notes - Dania Singh RN - [...] make follow up appointment with PCP, Dr. Tristian Pacheco, once they get home and check work [...] placed in room 5. documented in this encounterWalling Spondo [facility] Phone: [phone] 897-964710-30-2025 Nurse Note* Nursing Notes - Dania Singh RN - 06/12/2025 1:40 PM EDT Discharge canceled due to CK results. Dr. Doyle at bedside speaking with patient and spouse at this time. Patient states, I wanna go home . Patient requests to sign out AMA at this time. [facility] Phone: [phone] 999-151310-30-2025 History and physical note* DEEPALI Fry - 06/12/2025 12:44 PM EDT Hospital Medicine History and Physical Patient: Scarlet Mayer, 1975, [id number] Physician: DEEPALI Fry, Attending Physician Length of stay: 1 days. CHIEF COMPLAINT Scarlet Mayer is a 49 y.o. male here for Chief Complaint Patient presents with Dizziness Pt presents to the er per EMS after dizziness and near syncopal episode. 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 EMS started 18 G LAC with NS BP 104/63 HR 125 94 % 66 L NC BS 155. HPI Scarlet Mayer is a 49 y.o. male who has [...] using ibuprofen 4 tablets per day from oxrl-ojh-wajwgzz, he denies any fever or chills denies [...] sweats or polydipsia. PHYSICAL EXAM Temp: [97.6 F (36.4 C)-98.7 F (37.1 C)] 98.3 F (36.8 C) Pulse (Heart Rate): [69-112] 69 Resp Rate: [15-20] 20 BP: (115-170)/(76-111) 129/84 O2 Sat (%): [92 %-96 %] 95 % Weight: [106 kg (233 lb 11 oz)-106.4 kg (234 lb 9.1 oz)] 106 kg (233 lb 11 oz) Vitals: 06/12/25 0745 BP: 129/84 Pulse: 69 Resp: 20 Temp: 98.3 F (36.8 C) SpO2: 95% Constitutional: Conversant, in no acute [...] Manual 3.15 1.00 - 4.80 K/uL Abs Bent Manual 0.30 0.20 - 0.40 K/uL Abs Eos Manual 0.15 K\uL Abs Elliott Manual 0.15 >=0.00 K/uL Platelet Comments Specimen [...] Negative Negative Leukocyte Esterase Negative Negative Specific [place] Urine >1.030 (H) 1.000 - 1.030 URINE [...] Myocardial Perfusion Scintigraphy Same Day Rest/Stress Procedure Scarlet Mayer 1975 49 y.o. male 06/11/2025 12:33 PM [...] A2C) 35.1 ml LAESVI (MOD A4C) 17 ml/m [0.6-1.0] LVSV (Auto EF A4C) 72.8 ml LAESV (A-L BIP) 38.6 ml LVIDd 5.0 cm LVSV (Auto EF A2C) 52.2 ml LAESVI (MOD A2C) 15 ml/m [4.2-5.8] LVEF (Auto EF A2C) 60 % LAESV (MOD BIP) 36.2 ml LVIDs 3.4 cm [52-72] LAESVI (MOD BIP) 16 ml/m [2.5-4.0] LVEF (Auto EF BIP) 58 % [16-34] LVPWd 0.9 cm [52-72] RAA (s) 15.0 cm [0.6-1.0] LVEF (MOD BIP) 64 % [10.0-18.0] LVRWT 0.37 [52-72] RAA Index (s) 6.74 cm /m [0.24-0.42] RVIDd 3.9 cm LVOT Diam 2.4 cm LVd Mass 176 g RV basal (D1) 3.2 cm Ao Root Diam 3.5 cm [88-224] [2.5-4.1] Ao Asc Diam 3.6 cm LVd Mass Index 79 g/m RV mid (D2) 2.0 cm [2.6-3.4] [49-115] [1.9-3.5] Ao Asc Diam Index 1.64 cm/m LVEF (Teich) 60 % RV longit. (D3) 8.2 cm [1.3-1.7] LVd Mass (ASE) 153 g [5.9-8.3] Ao Asc Diam Index (h) 2.05 cm/m [88-224] LAAs Index (A4C) 7.1 cm /m LVd Mass Index (ASE) 68 g/m [7.4-10.4] [49-115] LAESVI (A-L) 17 ml/m LVEDV (Auto EF A4C) 130.5 ml LVEDV (Auto EF A2C) 87.4 ml LVESV (Auto EF A4C) 57.7 ml Doppler MV E Velocity 0.75 m/s LVOT mean PG 2.28 mmHg AV mean PG 3.59 mmHg MV A Velocity 0.62 m/s LVOT VTI 20.0 cm AV VTI 26.6 cm MV E / A 1.22 LVOT SV 88.0 ml JEANETTE (VTI) 3.3 cm [0.78-1.78] LVOT SVI 39.5 ml/m AVAI (VTI) 1.5 cm /m MV Dec. Time 177 ms LVOT CO 7.34 l/min JEANETTE (Vmax) 3.3 cm [143-219] LVOT CI 3.29 l/min/m AV HR 84 bpm MV PHT 51 ms AV Vmax 1.31 m/s LV HR 83 bpm MVA PHT 4.3 cm Dimensionless Index 0.74 RAP 8 mmHg MV Dec. [place] 4.24 m/s AV max PG 6.89 mmHg PV Vmax [...] WITH CONTRAST CHEST/ABDOMEN/PELVIS Result Date: 06/11/2025 EXAM: [facility] CTA CHEST, CTA ABDOMEN, CTA PELVIS WITH [...] HEAD WITHOUT CONTRAST Result Date: 06/11/2025 EXAM: [facility] CT HEAD WITHOUT CONTRAST, 06/11/2025 13:10 PM [...] DATE OF EXAM: May 16 2025 8:36AM [facility] 0539 - CT CHEST W [...] any questions regarding this interpretation, please call [phone]. If you are unable to reach us at the number above, please feel free to contact [facility] at [phone]. CT NECK WITH CONTRAST Result Date: 05/16/2025 * * *Final Report* * * DATE OF EXAM: May 16 2025 8:36AM [facility] 0013 - CT NECK SOFT [...] any questions regarding this interpretation, please call [phone]. If you are unable to reach us at the number above, please feel free to contact [facility] at [phone]. ASSESSMENT/ PLAN/ IMPRESSION Principal Problem: Elevated troponin Scarlet Mayer is a 49 y.o. male who has [...] using ibuprofen 4 tablets per day from fmte-ahi-gjbrvoi, he denies any fever or chills denies [...] CK level, if the level is not urnts9584 patient can be discharged Leukocytosis most likely [...] Housing: No Unable to Get Utilities: No [employer] Phone: [phone] History and physical note* DEEPALI Fry - 06/12/2025 12:44 PM EDT [facility] Medicine History and Physical Patient: Scarlet Mayer, 1975, [id number] Physician: DEEPALI Fry, Attending Physician Length of stay: 1 days. CHIEF COMPLAINT Scarlet Mayer is a 49 y.o. male here for Chief Complaint Patient presents with Dizziness Pt presents to the er per EMS after dizziness and near syncopal episode. 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 EMS started 18 G LAC with NS BP 104/63 HR 125 94 % 66 L NC BS 155. HPI Scarlet Saleski is a 49 y.o. male who has [...] using ibuprofen 4 tablets per day from slfc-wyq-eoopxtk, he denies any fever or chills denies [...] sweats or polydipsia. PHYSICAL EXAM Temp: [97.6 F (36.4 C)-98.7 F (37.1 C)] 98.3 F (36.8 C) Pulse (Heart Rate): [69-112] 69 Resp Rate: [15-20] 20 BP: (115-170)/(76-111) 129/84 O2 Sat (%): [92 %-96 %] 95 % Weight: [106 kg (233 lb 11 oz)-106.4 kg (234 lb 9.1 oz)] 106 kg (233 lb 11 oz) Vitals: 06/12/25 0745 BP: 129/84 Pulse: 69 Resp: 20 Temp: 98.3 F (36.8 C) SpO2: 95% Constitutional: Conversant, in no acute [...] Manual 3.15 1.00 - 4.80 K/uL Abs Bent Manual 0.30 0.20 - 0.40 K/uL Abs Eos Manual 0.15 K\uL Abs Elliott Manual 0.15 >=0.00 K/uL Platelet Comments Specimen [...] Negative Negative Leukocyte Esterase Negative Negative Specific [place] Urine >1.030 (H) 1.000 - 1.030 URINE [...] Myocardial Perfusion Scintigraphy Same Day Rest/Stress Procedure Scarlet Mayer 1975 49 y.o. male 06/11/2025 12:33 PM [...] A2C) 35.1 ml LAESVI (MOD A4C) 17 ml/m [0.6-1.0] LVSV (Auto EF A4C) 72.8 ml LAESV (A-L BIP) 38.6 ml LVIDd 5.0 cm LVSV (Auto EF A2C) 52.2 ml LAESVI (MOD A2C) 15 ml/m [4.2-5.8] LVEF (Auto EF A2C) 60 % LAESV (MOD BIP) 36.2 ml LVIDs 3.4 cm [52-72] LAESVI (MOD BIP) 16 ml/m [2.5-4.0] LVEF (Auto EF BIP) 58 % [16-34] LVPWd 0.9 cm [52-72] RAA (s) 15.0 cm [0.6-1.0] LVEF (MOD BIP) 64 % [10.0-18.0] LVRWT 0.37 [52-72] RAA Index (s) 6.74 cm /m [0.24-0.42] RVIDd 3.9 cm LVOT Diam 2.4 cm LVd Mass 176 g RV basal (D1) 3.2 cm Ao Root Diam 3.5 cm [88-224] [2.5-4.1] Ao Asc Diam 3.6 cm LVd Mass Index 79 g/m RV mid (D2) 2.0 cm [2.6-3.4] [49-115] [1.9-3.5] Ao Asc Diam Index 1.64 cm/m LVEF (Teich) 60 % RV longit. (D3) 8.2 cm [1.3-1.7] LVd Mass (ASE) 153 g [5.9-8.3] Ao Asc Diam Index (h) 2.05 cm/m [88-224] LAAs Index (A4C) 7.1 cm /m LVd Mass Index (ASE) 68 g/m [7.4-10.4] [49-115] LAESVI (A-L) 17 ml/m LVEDV (Auto EF A4C) 130.5 ml LVEDV (Auto EF A2C) 87.4 ml LVESV (Auto EF A4C) 57.7 ml Doppler MV E Velocity 0.75 m/s LVOT mean PG 2.28 mmHg AV mean PG 3.59 mmHg MV A Velocity 0.62 m/s LVOT VTI 20.0 cm AV VTI 26.6 cm MV E / A 1.22 LVOT SV 88.0 ml JEANETTE (VTI) 3.3 cm [0.78-1.78] LVOT SVI 39.5 ml/m AVAI (VTI) 1.5 cm /m MV Dec. Time 177 ms LVOT CO 7.34 l/min JEANETTE (Vmax) 3.3 cm [143-219] LVOT CI 3.29 l/min/m AV HR 84 bpm MV PHT 51 ms AV Vmax 1.31 m/s LV HR 83 bpm MVA PHT 4.3 cm Dimensionless Index 0.74 RAP 8 mmHg MV Dec. [place] 4.24 m/s AV max PG 6.89 mmHg PV Vmax [...] WITH CONTRAST CHEST/ABDOMEN/PELVIS Result Date: 06/11/2025 EXAM: [facility] CTA CHEST, CTA ABDOMEN, CTA PELVIS WITH [...] HEAD WITHOUT CONTRAST Result Date: 06/11/2025 EXAM: [facility] CT HEAD WITHOUT CONTRAST, 06/11/2025 13:10 PM [...] DATE OF EXAM: May 16 2025 8:36AM [facility] 0539 - CT CHEST W [...] the report reviewed and electronically signed by: OMI ROSSI MD on May 16 2025 5:06PM EST Thank you for allowing us to participate in the care of your patient. Should there be any questions regarding this interpretation, please call [phone]. If you are unable to reach us at the number above, please feel free to contact [facility] eRadiology at [phone]. CT NECK WITH CONTRAST Result Date: 05/16/2025 * * *Final Report* * * DATE OF EXAM: May 16 2025 8:36AM [facility] 0013 - CT NECK SOFT [...] any questions regarding this interpretation, please call [phone]. If you are unable to reach us at the number above, please feel free to contact [facility] eRadiology at [phone]. ASSESSMENT/ PLAN/ IMPRESSION Principal Problem: Elevated troponin Scarlet Mayer is a 49 y.o. male who has [...] using ibuprofen 4 tablets per day from pqkx-mjn-dgbdmma, he denies any fever or chills denies [...] CK level, if the level is not [id number] patient can be discharged Leukocytosis most likely [...] to Get Utilities: No documented in this encounterMaAvanSci Bio Work Phone: 1(647) 613-217010-30-2025 Plan of care note* Plan of Care - MANSOOR Valderrama - 06/12/2025 12:22 PM EDT Met with patient and regarding discharge planning. will make follow up appointment with PCP, Dr. Tristian Pacheco, once they get home and check work schedules. SW to fax info to PCP office prior to appointment. [facility] [id number] Procedure note* Dioni Monsalve MD - 06/12/2025 11:11 AM EDTAssociated Order(s): NUC MYOCARD PERF STRESS MIBI PHARM Gated Lexiscan Myocardial Perfusion Scintigraphy Same Day Rest/Stress Procedure Scarlet Mayer 1975 49 y.o. male 06/11/2025 12:33 PM [...] evidence of infarct or stress induced ischemia. [facility] [employer] Phone: 1(220) 659-806110-30-2025 Procedure note* Dioni Monsalve MD - 06/12/2025 11:11 AM EDTAssociated Order(s): NUC MYOCARD PERF STRESS MIBI PHARM Gated Lexiscan Myocardial Perfusion Scintigraphy Same Day Rest/Stress Procedure Scarlet Mayer 1975 49 y.o. male 06/11/2025 12:33 PM [...] or stress induced ischemia. documented in this encounterDunlap [facility] Hospital Phone: 1(726) 678-722810-30-2025 Consult note* Dioni Monsalve MD - 06/12/2025 9:34 AM EDTAssociated Order(s): IP CONSULT TO CARDIOLOGY CARDIOLOGY CONSULT Patient: Scarlet Rendon, 1975, [id number] Physician: Dioni Monsalve MD, Attending Physician Length of stay: 1 days. CHIEF COMPLAINT Scarlet Rendon is a 49 y.o. male here [...] on 02/23/24. Patient was undergoing training at [employer] yesterday which involved heavy exertional activity. Patient [...] the ED. In the ED he was ill-appearing , diaphoretic and fatigued. He had trouble [...] No joint swelling PHYSICAL EXAM Temp: [96.8 F (36 C)-98.7 F (37.1 C)] 98.3 F (36.8 C) Pulse (Heart Rate): [69-121] 69 Resp Rate: [15-32] 20 BP: (115-170)/(54-111) 129/84 O2 Sat (%): [92 %-96 %] 95 % Weight: [106 kg (233 lb 11 oz)-108 kg (238 lb 1.6 oz)] 106 kg (233 lb 11 oz) Vitals: 06/12/25 0745 BP: 129/84 Pulse: 69 Resp: 20 Temp: 98.3 F (36.8 C) SpO2: 95% Constitutional: In no acute distress. [...] WITH CONTRAST CHEST/ABDOMEN/PELVIS Result Date: 06/11/2025 EXAM: [facility] CTA CHEST, CTA ABDOMEN, CTA PELVIS WITH [...] HEAD WITHOUT CONTRAST Result Date: 06/11/2025 EXAM: [facility] CT HEAD WITHOUT CONTRAST, 06/11/2025 13:10 PM [...] DATE OF EXAM: May 16 2025 8:36AM [facility] 0539 - CT CHEST W [...] any questions regarding this interpretation, please call [phone]. If you are unable to reach us at the number above, please feel free to contact [facility] at [phone]. CT NECK WITH CONTRAST Result Date: 05/16/2025 * * *Final Report* * * DATE OF EXAM: May 16 2025 8:36AM [facility] 0013 - CT NECK SOFT [...] any questions regarding this interpretation, please call [phone]. If you are unable to reach us at the number above, please feel free to contact [facility] eRadiology at [phone]. ASSESSMENT/ PLAN/ IMPRESSION Elevated troponin-I levels: Patient had symptoms of excessive fatigue, diaphoresis, shortness of breath and lightheadedness with heavy exertional activity during training exercise at [employer] yesterday and was brought to the ED. 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 Head [...] Activity Alcohol use: Never Drug use: Never [employer] Phone: 1(853) 759-783310-30-2025 Consult note* Dioni Monsalve MD - 06/12/2025 9:34 AM EDTAssociated Order(s): IP CONSULT TO CARDIOLOGY CARDIOLOGY CONSULT Patient: Scarlet Rendon, 1975, [id number] Physician: Dioni Monsalve MD, Attending Physician Length of stay: 1 days. CHIEF COMPLAINT Scarlet Rendon is a 49 y.o. male here [...] on 02/23/24. Patient was undergoing training at [employer] yesterday which involved heavy exertional activity. Patient [...] the ED. In the ED he was ill-appearing , diaphoretic and fatigued. He had trouble [...] No joint swelling PHYSICAL EXAM Temp: [96.8 F (36 C)-98.7 F (37.1 C)] 98.3 F (36.8 C) Pulse (Heart Rate): [69-121] 69 Resp Rate: [15-32] 20 BP: (115-170)/(54-111) 129/84 O2 Sat (%): [92 %-96 %] 95 % Weight: [106 kg (233 lb 11 oz)-108 kg (238 lb 1.6 oz)] 106 kg (233 lb 11 oz) Vitals: 06/12/25 0745 BP: 129/84 Pulse: 69 Resp: 20 Temp: 98.3 F (36.8 C) SpO2: 95% Constitutional: In no acute distress. [...] WITH CONTRAST CHEST/ABDOMEN/PELVIS Result Date: 06/11/2025 EXAM: [facility] CTA CHEST, CTA ABDOMEN, CTA PELVIS WITH [...] HEAD WITHOUT CONTRAST Result Date: 06/11/2025 EXAM: [facility] CT HEAD WITHOUT CONTRAST, 06/11/2025 13:10 PM [...] DATE OF EXAM: May 16 2025 8:36AM [facility] 0539 - CT CHEST W [...] report reviewed and electronically signed by: MOI RSOSI MD on May 16 2025 5:06PM EST Thank you for allowing us to participate in the care of your patient. Should there be any questions regarding this interpretation, please call [phone]. If you are unable to reach us at the number above, please feel free to contact [facility] at [phone]. CT NECK WITH CONTRAST Result Date: 05/16/2025 * * *Final Report* * * DATE OF EXAM: May 16 2025 8:36AM [facility] 0013 - CT NECK SOFT [...] any questions regarding this interpretation, please call [phone]. If you are unable to reach us at the number above, please feel free to contact [facility] at [phone]. ASSESSMENT/ PLAN/ IMPRESSION Elevated troponin-I levels: Patient had symptoms of excessive fatigue, diaphoresis, shortness of breath and lightheadedness with heavy exertional activity during training exercise at [employer] yesterday and was brought to the ED. 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 Head [...] Never Drug use: Never documented in this encounterWalling IntelligentMDx Phone: 1(690) 532-589910-30-2025 Nurse Note* Nursing Notes - Gladys Miller RN - 06/12/2025 7:21 AM EDT Report given to Dania KIM, pt is resting in bed, IV is infusing, pt is on room air, call light is within reach. [facility] [employer] Phone: [phone] Nurse Note* Nursing Notes - Dania Singh RN - 06/12/2025 7:20 AM EDT Bedside report received from off going nurse, JUDY Graham. Patient resting in bed quietly, breathing even and unlabored. All questions and concerns addressed. IV WNL, Call light in reach. [employer] Phone: [phone]) 843-739210-30-2025 Plan of care note* Plan of Care - Gladys Miller RN [...] of Fall and Fall-Related Injury Outcome: Progressing [employer] Phone: [phone] Nurse Note* Nursing Notes - Gladys Miller RN - 06/11/2025 10:47 PM EDT Received critical result from lab, troponin of 0.180, Dr. Staley notified, no new orders placed. [employer] Phone: [phone] 134-971610-29-2025 Emergency department Note* Milly Rosas RN - 06/11/2025 9:48 PM EDT Pt taken to Unit 1 via wheelchair. Pt declined gown for now as he was extremely cold in the ER. Accompanied by his , she had his belongings. Report given to Gladys.JUDY. [facility] [id number] Emergency department Note* Milly Rosas RN - 06/11/2025 9:48 PM EDT Pt taken to Unit 1 via wheelchair. Pt declined gown for now as he was extremely cold in the ER. Accompanied by his , she had his belongings. Report given to Melvina. * Milly Rosas RN - 06/11/2025 8:21 [...] today, was doing some treating [employer] and got overheated, almost passed out. Upon [...] Manual 3.15 1.00 - 4.80 K/uL Abs Bent Manual 0.30 0.20 - 0.40 K/uL Abs Eos Manual 0.15 K\uL Abs Elliott Manual 0.15 >=0.00 K/uL Platelet Comments Specimen [...] Negative Negative Leukocyte Esterase Negative Negative Specific [place] Urine >1.030 (H) 1.000 - 1.030 URINE [...] on file. [3] Bubba Urias MD 06/11/25 4500 documented in this encounterWalling [facility] Phone: [phone] Nurse Note* Nursing Notes - Gladys Miller RN - 06/11/2025 9:40 PM EDT Received report from Milly KIM, pt was placed in room 5. [facility] [employer] Phone: [phone] 814-939810-29-2025 Emergency department Note* Milly Rosas RN - 06/11/2025 8:21 PM EDT Called Unit 1, room was just cleaned they will call when they have it set up. [employer] Phone: [phone] 750-409510-29-2025 Emergency department Note* Loren Lucio RN - 06/11/2025 6:42 PM EDT Pt vomiting, states he has pain all over. Zofran was given. [employer] Phone: [phone] 428-768910-29-2025 Emergency department Note* Loren Lucio RN - 06/11/2025 5:54 PM EDT Waiting for room to be cleaned before pt can be transfered [employer] [facility] Phone: [phone] Emergency department Note* Sandra Sales RN - 06/11/2025 5:48 PM EDT [address] 1 room 105, when room is clean, EVS notified [facility] [id number] Physician Emergency department Note* Bubba Urias MD - 06/11/2025 12:34 PM EDT History No chief complaint on file. This is a 49-year-old male, history of salivary gland cancer, presents due to dizziness and near syncopal episode which occurred while training today, was doing some treating with [employer] and got overheated, almost passed out. Upon [...] Manual 3.15 1.00 - 4.80 K/uL Abs Bent Manual 0.30 0.20 - 0.40 K/uL Abs Eos Manual 0.15 K\uL Abs Elliott Manual 0.15 >=0.00 K/uL Platelet Comments Specimen [...] Negative Negative Leukocyte Esterase Negative Negative Specific [place] Urine >1.030 (H) 1.000 - 1.030 URINE [...] on file. [3] Bubba Urias MD 06/11/25 9904 [employer] Phone: [phone]) 741-527910-22-2025 History of Present illness Narrative* Khadar Hill, DO - 06/04/2025 2:15 PM EDT Subjective Patient ID: HPI Patient presents today for cancer surveillance. He has been treated for a bilateral neck metastasisfrom a as of today unknown salivary gland malignancy primary. Was just at the oncology center, CT scan is reported as normal. TSH is little high at about 5. Otherwise doing fine. Review of Systems ROS The [...] normal Nares patent. Septal deviation to the left No evidence of polyp, mass or pus [...] Oropharynx: Tonsils absent Posterior pharyngeal wall normal Mirror examination shows no abnormalities the base of tongue and surrounding mucosal surfaces Neck: No evidence of palpable abnormality Thyroid without evidence of thyromegaly or mass. No cervical lymphadenopathy present. Cardiovascular: Rate and Rhythm: Normal rate and regular rhythm. . Skin: General: Skin is warm and dry. Neurological: General: No focal deficit present. Mental Status: alert and oriented to person, place, and time. 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 Author Type: Physician Type: Progress Notes Filed: 06/03/2025 06:32 Note Text: Radiation Oncology - Follow Up Note PATIENT NAME: Scarlet Mayer PATIENT DIAGNOSIS/PATIENT IDENTIFICATION: Mr. Mayer is a 49 year old male who underwent right partial [...] with the head and neck team at [facility] with recommendation to proceed to post-operative radiation therapy to the left neck for local control which he completed on 05/23/2024 (6000 cGy delivered in 30 fractions). INTERVAL HISTORY: Mr. Mayer returns to clinic today for routine follow-up approximately one year after the completion of his radiation treatments and five months since his last visit on 12/13/2024. In the interim, he has been following with Dr. Hill without concerns on his last head and neck examination. He also had repeat imaging with CT neck and chest on 05/16/2025 which was without evidence for local regional or distant disease. Today he reports doing well and continues to note slight tenderness near the ear and inside the mouth which is unchanged and today reports no new sores or ulcers in the mouth. He continues to have dry mouth which is unchanged as well as bland taste. His skin is intact as he continues to use a moisturizer and does his exercises for lymphedema. He reports no new lumps or bumps in the neck with intact range of motion. He endorses stable energy appetite and hydration with stable weight. His TSH levels were found to be elevated at his last evaluation by his primary care physician and he is considering starting supplementation. ALLERGIES ALLERGIES No Known Allergies MEDICATIONS: Current [...] chair in no acute distress. VITALS: BP 143/90 Pulse 76 Temp 98.3 Resp 16 Wt 235 lb 0.2 oz (106.6kg) SpO2 97% KPS: 90 HEENT: NC/AT, anicteric sclera HEART: S1S2 LUNGS: non-labored breathing ABDOMEN: soft MUSCULOSKELETAL: no peripheral edema, moves all extremities. NEURO: no focal deficit; AANDO X3. RADIOLOGIC DATA: CT Neck (05/16/2025) IMPRESSION: No evidence of residual/recurrent disease or pathological cervical chain adenopathy. CT Chest (05/16/2025) IMPRESSION: Stable CT of the chest. No evidence of intrathoracic metastatic disease. ASSESSMENT AND PLAN: Mr. Mayer is a 49 year old male who underwent right partial [...] with the head and neck team at [facility] with recommendation to proceed to post-operative radiation therapy to the left neck for local control which he completed on 05/23/2024 (6000 cGy delivered in 30 fractions). Mr. Mayer is doing well clinically approximately 1 year out from completion of his most recent postoperative radiation therapy to the left neck with no new issues since his last visit. He is without clinical or radiographic evidence of disease recurrence based on his last head and neck examination by Dr. Hill and his recent imaging with CT neck and chest from 05/16/2025. He will continue follow-up/surveillance with Dr. Hill as scheduled and I will plan to see him back in approximately 1 year with repeat imaging. He will follow-up with his primary care physician regarding thyroid evaluation/supplementation. The patient is aware to contact the clinic in the interim should any questions or concerns arise. Thank you for allowing us to participate in the care of this patient. Signed by: Yosef Taylor MD I spent a total of 20 minutes on the date of the service which included preparing to see the patient, face-to (more content not included)...[facility]10-03-2025 NoteHNO ID: [id number] Author: MIS ROJAS RT(R) Service: ? Author Type: Technologist Type: Progress Notes Filed: 05/16/2025 08:37 Note Text: Radiology Service Progress Note PATIENT NAME: Scarlet Mayer DATE OF SERVICE: May 16, 2025 TIME: 8:36 AM PATIENT IDENTITY VERIFICATION COMPLETED USING TWO [...] PATIENT PRESENTS WITH AN IMPLANTABLE OR ATTACHED ENGLISH LANGUAGE ARTS TEACHER: No RADIOLOGY DEPARTMENT: CT; Exam(s) Completed: Chest and Neck . Anesthesia: No PERIPHERAL IV DATA: Site assessment: Clean,Dry and Intact, Site disposition Discontinued SIGNED BY: RT Lianne(R) May 16, 2025 8:36 [facility]10-03-2025 NoteHNO ID: [id number] Author: KIKA CHATMAN RN Service: ? Author Type: Registered Nurse Type: Progress Notes Filed: 05/16/2025 08:01 Note Text: Radiology Service Progress Note DATE OF SERVICE: May 16, 2025 TIME: 8:00 AM PATIENT WEIGHT: 230LBS PATIENT IDENTITY VERIFICATION COMPLETED USING TWO (2) [...] the National Kidney Foundation website at kidney.org/professionals/kdoqi/gfr_calculator. eGFR- Date Value Ref Range Status 07/16/2021 >60 Final P.O.C.T. RESULTS: POC done: Yes, See Lab Tab May 16, 2025 TREATMENT: N/A IV SITE: Ambulatory: A peripheral IV was started in the Right antecubital site with a Angio cath: 20 gauge. IV SITE APPEARANCE: Clean,Dry and Intact SIGNATURE: Kika Chatman RN PATIENT NAME: Scarlet Mayer DATE: May 16, 2025 TIME: 8:00 [facility]07-16-2025 History of Present illness Narrative* Khadar Hill DO - 02/26/2025 2:00 PM EDT Subjective Patient ID: HPI Patient presents today [...] dissection Comments: See above documented in this encounterDoctors Hospital of SpringfieldBxobnfwefv76-01-1647 History of Present illness Narrative* Khadar Hill DO - 01/08/2025 1:15 PM EDT Subjective Patient ID: HPI Patient presents today for cancer surveillance. 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 He is doing well. Recent the CT scan was performed at the [facility] and I reviewed this, I concur [...] dissection Comments: See above documented in this encounterDoctors Hospital of SpringfieldSrpavjvrpn95-65-3637 NoteHNO ID: [id number] Author: YOSEF TAYLOR MD Service: ? Author [...] with the head and neck team at [facility] with recommendation to proceed to post-operative radiation [...] with the head and neck team at [facility] with recommendation to proceed to post-operative radiation [...] which included preparing to see the patient, [id number] patient care, and counseling and educating the patient/family/caregiver. This document has been created with the use of voice recognition technology. It may contain inaccuracies, misspellings, inaccurate syntax or inappropriate word context that are a result of the inadequacies/shortcomings of said technology/software.[facility]05-02-2025 History of Present illness Narrative* Yosef Taylor MD - 12/13/2024 11:16 PM EDT Radiation Oncology - Follow Up Note PATIENT NAME: Scarlet Mayer PATIENT Signed by: Yosef Taylor MD I spent a total of 20 minutes on the date of the service which included preparing to see the patient, [id number] patient care, and counseling and educating the patient/family/caregiver. This document has been created with the use of voice recognition technology. It may contain inaccuracies, misspellings, inaccurate syntax or inappropriate word context that are a result of the inadequacies/shortcomings of said technology/software. documented in this encounterBrecksville [facility]04-[facility]25 NoteHNO ID: [id number] Author: EDWARDO GARCIA RN Service: ? Author [...] the National Kidney Foundation website at kidney.org/professionals/kdoqi/gfr_calculator. eGFR- Date Value Ref Range Status 07/16/2021 >60 Final P.O.C.T. RESULTS: N/A December 05, 2024 TREATMENT: N/A IV SITE: Ambulatory: A peripheral IV was started in the Right antecubital site with a Angio cath: 20 gauge. IV SITE APPEARANCE: Clean,Dry and Intact SIGNATURE: Edwardo Garcia RN PATIENT NAME: Scarlet Mayer DATE: December 05, 2024 TIME: 8:54 [facility]04-24-2025 NoteHNO ID: [id number] Author: MIS ROJAS RT(R) Service: ? Author [...] PATIENT PRESENTS WITH AN IMPLANTABLE OR ATTACHED ENGLISH LANGUAGE ARTS TEACHER: No RADIOLOGY DEPARTMENT: CT; Exam(s) Completed: Chest and Neck PERIPHERAL IV DATA: Site assessment: Clean,Dry and Intact, Site disposition Discontinued SIGNED BY: Mis Rojas RT(R) December 05, 2024 9:05 [facility]04-02-2025 History of Present illness Narrative* Khadar Hill DO - 11/13/2024 1:15 PM EDT Subjective Patient ID: HPI Patient presents today [...] (CMS/HCC) Comments: See above documented in this encounterDoctors Hospital of [id number] History of Present illness Narrative* Khadar Hill DO - 09/25/2024 2:15 PM EST Subjective Patient ID: HPI Patient presents today for cancer surveillance. 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 He isdoing fine. Said he recently a CT scan [...] dissection Comments: See above documented in this encounterDoctors Hospital of Spr[id number] NoteHNO ID: [id number] Author: KOMAL MENDOZA OTR/L Service: ? Author Type: Occupational Therapist Type: Progress Notes Filed: 08/21/2024 12:51 Note Text: Episode Visit Count: 9 - #1 visit in 2024 Therapist That Will Accept/Oversee The Plan Of Care: Reji Start of Care Date: 03/28/24 Onset Date: [...] lymphedema surveillance) Planned Treatment Interventions: Therapeutic exercise (51236), Manual therapy (34913), Self-[place] [facility] management (16174) PLAN FOR NEXT VISIT: follow up 1 [...] and decrease pain. Utiliz (more content not included)...[facility]01-08-2025 History of Present illness Narrative* RejiKomal, OTR/Toby - 08/21/2024 9:58 AM EST Episode Visit Count: 9 - #1 visit in 2024 Therapist That Will Accept/Oversee The Plan Of Care: Reji Start of Care Date: 03/28/24 Onset Date: 03/18/24 Patient Identified by Name and Date of : Yes REHABILITATION AND SPORTS THERAPY OCCUPATIONAL THERAPY PROGRESS REPORT PLAN OF CARE UPDATE: Assessment: Scarlet Arguellobridger demonstrates slight improvements in H& N lymphedema [...] the works - OT contacted [employer] rep(Maryam Rasmussen) for update. Rep just waiting for [...] lymphedema surveillance) Planned Treatment Interventions: Therapeutic exercise (61452), Manual therapy (51544), Self-[place] [facility] management (45315) PLAN FOR NEXT VISIT: follow up 1 [...] dynamics, increase skin extensibility and normalize sensation. Self-Alf Management: 1: measurements of neck - showing - swelling not getting worse 2: assess ROM, scars - slowly improving - continued diligent home self mgmt needed 3: pump status - OT contacted [employer] rep - via speaker phone - per [...] : 1055 ROBERT Kerns documented in this encounterBrec[facility]ville [facility]12[facility] History of Present illness Narrative* Khadar Hill, - 08/12/2024 2:45 PM EST Subjective Patient ID: HPI Patient presents today for cancer surveillance. He is status post left neck dissection, the 2nd neck dissection for a yet to be discovered primary salivary gland cancer of the head and neck. Says he just underwent a CT scan at the [facility] cancer center and that was reported [...] yet to be discovered documented in this encounterDoctors Hospital of SpringfieldZzpmyzvytn12-22-7285 Telephone encounter Note* Telephone Encounter - Denisse Ervin RN - 08/06/2024 10:21 AM EST Paige, pt's , notified of Dr. Taylor's recommendation. She denies questions at this time. JUDY Carranza Saju, MD sent to Denisse Ervin RN Cc: Sahra Infante RN Please let the [employer] know that TSH value is within range and he should continue thyroid function assessment with his annual bloodwork with his PCP. Thanks! Yosef [facility]12-24-2024 Miscellaneous Notes* Telephone Encounter - Denisse Ervin RN - 08/06/2024 10:21 AM EST Paige, pt's , notified of Dr. Taylor's recommendation. She denies questions at this time. JUDY Carranza Saju, MD sent to Denisse Ervin RN Cc: Sahra Infante RN Please let the Bernabe' know that TSH value is within range and he should continue thyroid function assessment with his annual bloodwork with his PCP. Thanks! Yosef documented in this encounterBrecksville [facility]12-23-2024 NoteHNO ID: [id number] Author: YOSEF TAYLOR MD Service: ? Author [...] with the head and neck team at [facility] with recommendation to proceed to post-operative radiation [...] with the head and neck team at [facility] with recommendation to proceed to post-operative radiation [...] imaging with CT neck and chest from 1216 2 4 showed expected no radiographic concern for disease recurrence. He also had reassuring clinical head and neck examination by Dr. Hill recently. I will plan t (more content not included)... [facility]12-23-2024 History of Present illness Narrative* Yosef Taylor MD - 08/05/2024 11:41 PM EST Radiation Oncology - Follow Up Note PATIENT NAME: Scarlet Mayer PATIENT Signed by: Yosef Taylor MD I spent a total of 20 minutes on the date of the service which included preparing to see the patient, [id number] patient care, and counseling and educating the patient/family/caregiver. This document has been created with the use of voice recognition technology. It may contain inaccuracies, misspellings, inaccurate syntax or inappropriate word context that are a result of the inadequacies/shortcomings of said technology/software. documented in this encounterBrecksville [facility]12-16-[facility] History of Present illness Narrative* Kika Chatman RN - 07/29/2024 9:15 AM EST Radiology Service Progress Note DATE OF SERVICE: [...] the National Kidney Foundation website at kidney.org/professionals/kdoqi/gfr_calculator. eGFR- Date Value Ref Range Status 07/16/2021 [...] DATE: July 29, 2024 TIME: 9:40 AM * Mis Rojas RT(R) - 07/29/2024 9:15 AM EST Radiology Service Progress Note PATIENT NAME: Scarlet Mayer DATE OF SERVICE: July 29, 2024 TIME: 9:28 AM PATIENT IDENTITY VERIFICATION COMPLETED USING TWO (2) IDENTIFIERS: Name and Date of confirmedby patient verbally. FALL SCREENING: Has the patient had 2 falls in the last year or 1 fall with injury or currently using an Ambulatory Assistive Device (Walker, Cane, Wheelchair, Crutches, etc.)? No PATIENT GENDER DATA: Male PATIENT RELEVANT IMPLANT DATA REVIEWED: Not Applicable PATIENT PRESENTS WITH AN IMPLANTABLE OR ATTACHED ENGLISH LANGUAGE ARTS TEACHER: No RADIOLOGY DEPARTMENT: CT; Exam(s) Completed: Chest and Neck PERIPHERAL IV DATA: Site assessment: Clean,Dry and Intact, Site disposition Discontinued SIGNED BY: RT Lianne(Ryan) July 29, 2024 9:28 AM documented in this encounterBrecksville [facility]12-16-2024 NoteHNO ID: [id number] Author: MIS ROJAS RT(Ryan) Service: ? Author [...] PATIENT PRESENTS WITH AN IMPLANTABLE OR ATTACHED ENGLISH LANGUAGE ARTS TEACHER: No RADIOLOGY DEPARTMENT: CT; Exam(s) Completed: Chest and Neck PERIPHERAL IV DATA: Site assessment: Clean,Dry and Intact, Site disposition Discontinued SIGNED BY: RT Lianne(R) July 29, 2024 9:28 [facility]12-16-2024 NoteHNO ID: [id number] Author: KIKA CHATMAN RN Service: ? Author [...] the National Kidney Foundation website at kidney.org/professionals/kdoqi/gfr_calculator. eGFR- Date Value Ref Range Status 07/16/2021 >60 Final P.O.C.T. RESULTS: POC done: Yes, See Lab Tab July 29, 2024 TREATMENT: No Hydration needed. IV SITE: Ambulatory: A peripheral IV was started in the Right antecubital site with a Angio cath: 20 gauge. IV SITE APPEARANCE: Clean,Dry and Intact SIGNATURE: Kika Chatman RN PATIENT NAME: Scarlet Mayer DATE: July 29, 2024 TIME: 9:40 [facility]12-12-2024 Telephone encounter Note* Telephone Encounter - Neha Hines APRN.CNP - 07/25/2024 12:55 PM EST Received forms from [employer] for [employer] touch for patient, however this pt is followed by a provider in [place], not seen by our office in 3 yrs. Requested that [employer] forward their request to his current provider. Neha Hines APRN.EXCEL SPECIALIST [facility] Work Phone: [phone] Miscellaneous Notes* Telephone Encounter - Neha Hines APRN.CNP - 07/25/2024 12:55 PM EST Received forms from [employer] for [employer] for patient, however this pt is followed by a provider in [place], not seen by our office in 3 yrs. Requested that [employer] forward their request to his current provider. Neha Hines APRN.EXCEL SPECIALIST documented in this encounterBrecksville [facility]12-04-2024 NoteHNO ID: [id number] Author: KOMAL MENDOZA OTR/Toby Service: ? Author Type: Occupational Therapist Type: Progress Notes Filed: 07/17/2024 12:27 Note Text: Episode Visit Count: 8 Therapist That Will Accept/Oversee The Plan Of Care: Reji Start of Care Date: 03/28/24 Onset Date: [...] demo at his house in near future ([employer]/Flexitouch HANDN pump) . Pt and have [...] lymphedema surveillance) Planned Treatment Interventions: Therapeutic exercise (16571), Manual therapy (17396), Self-[place] [facility] management (31614) PLAN FOR NEXT VISIT: take measurements - [...] : 1105 Session Stop Time : 1200 [facility] of Present illness Narrative* Komal Mendoza OTR/Toby - 07/17/2024 10:59 AM EST Episode Visit Count: 8 Therapist That Will Accept/Oversee The Plan Of Care: Reji Start of Care Date: 03/28/24 Onset Date: [...] demo at his house in near future ([employer]/Flexitouch H&N pump) . Pt and have many [...] lymphedema surveillance) Planned Treatment Interventions: Therapeutic exercise (25052), Manual therapy (98761), Self-[place] [facility] management (31092) PLAN FOR NEXT VISIT: take measurements - upgrade or modifiy home program - did pt get home pump? SUBJECTIVE: approx 5 months S/P surgery, approx 7 weeks post radiaton. Pt here with suppostive wifewho assists with MLD Pt trying to wear [...] : [address] documented in this encounterBrecksville Va [facility]11-27-2024 NoteHNO ID: [id number] Author: KOMAL MENDOZA OTR/L Service: ? Author Type: Occupational Therapist Type: Progress Notes Filed: 07/10/2024 12:26 Note Text: Episode Visit Count: 7 Therapist That Will Accept/Oversee The Plan Of Care: Reji Start of Care Date: 03/28/24 Onset Date: [...] as needed) Planned Treatment Interventions: Therapeutic exercise (75571), Manual therapy (54317), Self-[place] [facility] management (73033) PLAN FOR NEXT VISIT: how did pt [...] 1100 Session Stop Time : 1200 [facility] [facility] History of Present illness Narrative* Komal Mendoza OTR/Toby - 07/10/2024 10:54 AM EST Episode Visit Count: 7 Therapist That Will Accept/Oversee The Plan Of Care: Reji Start of Care Date: 03/28/24 Onset Date: [...] from ongoing skilled occupational therapy to progress towardset goals. Total Number of Visits Planned: 1 (1 visit next week then follow 1x month for a few months as needed) Planned Treatment Interventions: Therapeutic exercise (31365), Manual therapy (14066), Self-[place] [facility] management (04783) PLAN FOR NEXT VISIT: how did pt [...] program will help with strengt, gym work outswith overhead press and lympathic filtration Head and Neck Measurements Superior Neck (cm): 48.6 cm Middle Neck (cm): 44.3 cm Inferior Neck (cm): 41.5 cm TREATMENT: Therapeutic Exercise: 1: added deep neck flexor exer 2 sets of 10 supine on mat - add to home program - do not overdo andnot to cause pain 2: HBH performed supine [...] : 1100 Session Stop Time : 1200 [address] K[address]s documented in this encounterBrecksville [facility]11-21-2024 Telephone encounter Note * Telephone Encounter - Yosef Taylor MD - 07/04/2024 4:10 PM EST Signed - thanks! Yosef [facility]11-21-2024 Miscellaneous Notes* Telephone Encounter - Yosef Taylor MD - 07/04/2024 4:10 PM EST Signed - thanks! Yosef * Telephone Encounter - Edwardo Garcia RN - 07/04/2024 3:04 PM EST Please sign pended CT orders Thank You! Edwardo Garcia RN documented in this encounterBrecksville [facility]11-21-2024 Telephone encounter Note * Telephone Encounter - Edwardo Garcia RN - 07/04/2024 3:04 PM EST Please sign pended CT orders Thank You! Edwardo Garcia RN [facility]11-20-2024 NoteHNO ID: [id number] Author: KOMAL MENDOZA OTR/Toby Service: ? Author Type: Occupational Therapist Type: Progress Notes Filed: 07/03/2024 12:48 Note Text: Episode Visit Count: 6 Therapist That Will Accept/Oversee The Plan Of Care: Reji Start of Care Date: 03/28/24 Onset Date: 03/18/24 Patient Identified by Name and Date of : Yes REHABILITATION AND SPORTS THERAPY OCCUPATIONAL THERAPY TREATMENT NOTE ASSESSMENT: Scarlet Mayre tolerated the session with no issues. He [...] Planned: 3 Planned Treatment Interventions: Therapeutic exercise (63030), Manual therapy (37397), Self-[place] [facility] management (77683) PLAN FOR NEXT VISIT: how did pt [...] dynamics, increase skin extensibility and normalize sensation. Self-Alf Management: 1: encouraged longer duration of HANDN garment wear - try overnight 2: discussed using silicone gel sheets for scar - pt to purchase on [employer] 3: OT applied kinesiotape to submental and L side cheek swelling - cautious due to radiated skin - pt to trial fro a few hours - remove carefully with olive oil - monitor skin 4: discussed HAND N pump - pt/ would like to go ahead and pursue trial and see if insurance will cover - OT will send demongraphics to [facility] rep - [facility] Skilled Intervention: Reviewed patient specific diagnosis in relation to activities of daily living/home management. Activity progression based on professional judgement. Billing Manual Therapy Treatment Minutes: 40 Self-Care/Home Management Treatment Minutes: 15 Skilled Treatment Time Minutes (timed and untimed codes): 55 Total Session Time (minutes): 55 Session Start Time : 1105 Session Stop Time : 1200 L[address] Kerns[facility] History of Present illness Narrative* Komal Mendoza OTR/L - 07/03/2024 11:06 AM EST Episode Visit Count: 6 Therapist That Will Accept/Oversee The Plan Of Care: Reji Start of Care Date: 03/28/24 Onset Date: [...] from ongoing skilled occupational therapy to progress towardset goals. Total Number of Visits Planned: 3 Planned Treatment Interventions: Therapeutic exercise (86980), Manual therapy (07331), Self-[place] [facility] management (36076) PLAN FOR NEXT VISIT: how did pt [...] dynamics, increase skin extensibility and normalize sensation. Self-Alf Management: 1: encouraged longer duration of H&N garment wear - try overnight 2: discussed using silicone gel sheets for scar - pt to purchase on [employer] 3: OT applied kinesiotape to submental and L side cheek swelling - cautious due to radiated skin - pt to trial fro a few hours - remove carefully with olive oil - monitor skin 4: discussed H& N pump - pt/ would like to go ahead and pursue trial and see if insurance will cover - OT will send demongraphics to [facility] rep - Maryam Rasmussen Skilled Intervention: [...] : [address] documented in this encounterBrecksville [facility]11-19-2024 Telephone encounter Note * Telephone Encounter - Yosef Taylor MD - 07/02/2024 3:22 PM EST Wouldn't expect night sweats routinely after radiation therapy to the head and neck. If they persist, would have him come in for routine labs (CBC, CMP) and a TSH/T4 either or Monday. Thanks! Yosef [facility]11-19-2024 Miscellaneous Notes* Telephone Encounter - Yosef Taylor MD - 07/02/2024 3:22 PM EST Wouldn't expect night sweats routinely after radiation therapy to the head and neck. If they persist, would have him come in for routine labs (CBC, CMP) and a TSH/T4 either or Monday. Thanks! Yosef documented in this encounterBrecksville [facility]11-18-2024 History of Present illness Narrative* Khadar Hill DO - 07/01/2024 2:15 PM EST Subjective Patient ID: HPI Patient presents today [...] in the near future documented in this encounterDoctors Hospital of [id number] History of Present illness Narrative* Komal Mendoza OTR/Toby - 06/26/2024 9:09 AM EST Episode Visit Count: 5 Therapist That Will Accept/Oversee The Plan Of Care: reji Start of Care Date: 03/28/24 Onset Date: 03/18/24 Patient Identified by Name and Date of : Yes REHABILITATION AND SPORTS THERAPY OCCUPATIONAL THERAPY PROGRESS REPORT PLAN OF CARE UPDATE: Assessment: Scarlet Mayer demonstrates difficulty with H&N tightness, external and internal lymphedema - worse since completed radiation. Pt will benefit from OT/lymphedema therapy for MLD, scarand tissue massage - adding the H&N daily [...] motion, symptom management, and tissue tenderness that interferewith . Current prognosis is Good due to: [...] perform MLD, scar mgmt, progress home program -possible H&N pump trial) Planned Treatment Interventions: Therapeutic exercise (05568), Manual therapy (34324), Self-[place] [facility] management (17607) PLAN FOR NEXT VISIT: MLD H& N and intra-oral - progress home program - pump trial SUBJECTIVE: 17 weeks S/P - pt completed radiaiton 05/23- [facility] massage and or compression during that time. Skin now healedand pt/ here today to resume lymphedema therapy [...] with diaphnratic breathing 10x, axillary nodes, supraclavicular openand activate - H&N anterior approach 2: scar [...] dynamics, increase skin extensibility and normalize sensation. Self-Alf Management: 1: measurements showing inc in neck [...] years to prevent tightening that can occur fromradiation 4: discussed possible use of H&N compression pump - [employer] - info provided online - OT willcontact local rep for possible in clinic trial Skilled Intervention: Reviewed patient specific diagnosis in relation to activities of daily living/home management. Activity progression based on professional judgement. Billing Manual Therapy Treatment Minutes: 25 Self-Care/Home Management Treatment Minutes: 30 Skilled Treatment Time Minutes (timed and untimed codes): 55 Total Session Time (minutes): 55 Session Start Time : 904 Session Stop Time : [address] documented in this encounterBrecksville [facility]11-13-2024 NoteHNO ID: [id number] Author: KOMAL MENDOZA OTR/L Service: ? Author Type: Occupational Therapist Type: Progress Notes Filed: 07/05/2024 15:32 Note Text: Episode Visit Count: 5 Therapist That Will Accept/Oversee The Plan Of Care: reji Start of Care Date: 03/28/24 Onset Date: [...] N pump - the advanced pump by [employer] Flex[employer]ouch pump for home self mgmt. The basic pump E0651 is inappropriate due to the HANDN lymphedema diagnosis. A basic pump does not exist for the HANDN. Pt has persistent swelling and the Advanced Flexitouch Pneumatic compression device is the ONLY pump that currently exists and is recommended as an additional modality to manage HANDN lymphedema on a skilled nursing basis to prevent further deterioration, fibrotic scar [...] pump trial) Planned Treatment Interventions: Therapeutic exercise (51088), Manual therapy (73138), Self-[place] [facility] management (01580) PLAN FOR NEXT VISIT: MLD HAND N and intra-oral - progress home program - pump trial SUBJECTIVE: 17 weeks S/P - pt completed radiaiton 05/23- pt had some skin dermatitis from [facility]er, [...] swallowing exer - e (more content not included)...[facility]11-08-2024 NoteHNO ID: [id number] Author: YOSEF TAYLOR MD Service: ? Author [...] with the head and neck team at [facility] with recommendation to proceed to post-operative radiation [...] a result of the inadequacies/shortcomings of said technology/software.[facility]11-08-2024 History of Present illness Narrative* Yosef Taylor MD - 06/21/2024 11:23 PM EST Radiation Oncology - Follow Up Note PATIENT NAME: Scarlet Mayer PATIENT Signed by: Yosef Taylor MD This document has been created with the use of voice recognition technology. It may contain inaccuracies, misspellings, inaccurate syntax or inappropriate word context that are a result of the inadequacies/shortcomings of said technology/software. documented in this encounterBrecksville [facility]10-22-2024 Telephone encounter Note * Telephone Encounter - Yosef Taylor MD - 06/04/2024 3:12 PM EDT Thanks! Yosef [facility]10-22-2024 Miscellaneous Notes* Telephone Encounter - Yosef Taylor MD - 06/04/2024 3:12 PM EDT Thanks! Yosef * Telephone Encounter - Denisse Ervin LPN - 06/04/2024 11:30 AM EDT I called to get a post treatment [...] his follow up. She is thankful for thecare he received from our team. Denisse Ervin RN documented in this encounterBrecksville Va [facility]10-22-2024 Telephone encounter Note * Telephone Encounter - Denisse Ervin LPN - 06/04/2024 11:30 AM EDT I called to get a post treatment [...] his follow up. She is thankful for thecare he received from our team. Denisse Ervin RN [facility]10-14-[facility] History of Present illness Narrative* Khadar Hill, - 05/27/2024 2:15 PM EDT Subjective Patient ID: HPI Patient presents today for follow-up. 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 He just finished radiation therapy last . He hasa pretty significant radiation dermatitis Review of Systems [...] never made itself known. documented in this encounterDoctors Hospital of [id number] History of Present illness Narrative* Yosef Taylor MD - 05/23/2024 12:00 AM EDT [facility] Radiation Oncology Department RADIATION ONCOLOGY - COMPLETION NOTE PATIENT: JOHN MAYERB: 1975 DATES OF TREATMENT: 04/11/2024 to 05/23/2024 [...] and underwent left lingual tonsillectomy, left 1A-5 neckdissection (2/15 nodes, up to 2.6cm, no definite RAJIV) on 02/23/24. He met with the head and neck team at [facility] with recommendation to proceed to post-operative radiation therapy to the left neck for local control. AREA TREATED: Left Neck DELIVERED DOSE: 6,000 cGy in 30 fractions, 4 VMAT Rapid Arc [place], x06 with daily CBCT guidance TOTAL: 6,000 cGy delivered in 30 fractions ELAPSED TIME: 42 days. CLINICAL SUMMARY: The patient tolerated course of post-operative radiation therapy to the left neckwell with treatment-related fatigue, dermatitis, dry mouth, and altered taste as expected. No othersignificant issues. The patient was able to complete treatment as intended without break interruption or modification of prescription plan. The patient will be evaluated in 2-3 weeks for postradiation follow-up with plans for initial post-treatment imaging in approximately 2 months. . Staff Physician Yosef Taylor M.D. / SOILA 2:33 AM Electronically Signed cc: Khadar Hill DO [address] [facility] [address] [address] Tristian Pacheco MD [address] [facility] [id number] [address] Santiago Villalba MD ([facility]) documented in this encounterBrecksville Va [facility]10-09-2024 History of Present illness Narrative* Yosef Taylor MD - 05/22/2024 11:44 PM EDT Radiation Oncology - On Treatment Review (OTR) [...] planned. Yosef Taylor MD documented in this encounterBrecksville Va [facility]09-25-2024 History of Present illness Narrative* Yosef Taylor MD - 05/08/2024 10:16 PM EDT Radiation Oncology - On Treatment Review (OTR) [...] tongue sensitivity and continues to use the bakingsoda rinse as well as Healios. He does [...] planned. Yosef Taylor MD documented in this encounterBrecksville Va / [facility]09-18-2024 History of Present illness Narrative* Yosef Taylor MD - 05/01/2024 11:52 PM EDT Radiation Oncology - On Treatment Review (OTR) Note PATIENT NAME: Scarlet Mayer PATIENT Yosef Taylor MD documented in this encounterBrecksville Va / [facility]09-18-2024 History of Present illness Narrative* Komal Mendoza, OTR/L - 05/01/2024 9:11 AM EDT Episode Visit Count: 4 Therapist That Will Accept/Oversee The Plan Of Care: Reji Start of Care Date: 03/28/24 Onset Date: [...] Planned: 5 Planned Treatment Interventions: Therapeutic exercise (30939), Manual therapy (15424), Self-[place] [facility] management (80346) PLAN FOR NEXT VISIT: PN next visit - follow 4-6 weeks post radiation once skin healed - how is compression - new H&Ngarment and homemade neck swelling pieces SUBJECTIVE: 9 [...] with diaphnratic breathing 10x, axillary nodes, supraclavicular openand activate - H&N anterior approach and posterior approach 2: skin inspection- neck tissue tender from radiation gentle scar massage Skilled Intervention: Manual skills to improve joint mobility, ROM, and decrease pain. Utilized anatomy knowledge of the therapist, and assessment of patient's response to intervention. Increase lymphatic fluid dynamics, increase skin extensibility and normalize sensation. Self-Alf Management: 1: ordered new L&R - H&N [...] MLD - due to scar and tender radiatedneck tissue 4: increase mouth opening stretch - longer duration of end range stretch - to 20 sec ...30 sec...40sec sa tolerated 5: continue home program - [...] : 904 Session Stop Time : 949 [address] Kerns documented in this encounterBrecksville [facility]09-12-2024 History of Present illness Narrative* Komal Mendoza OTR/L - 04/25/2024 8:02 AM EDT Episode Visit Count: 3 Therapist That Will Accept/Oversee The Plan Of Care: Reji Start of Care Date: 03/28/24 Onset Date: 03/18/24 Patient Identified by Name and Date of : Yes REHABILITATION AND SPORTS THERAPY OCCUPATIONAL THERAPY TREATMENT NOTE ASSESSMENT: Scarlet aMyer tolerated the session with some expected neck tenderness due to in radiation treatment . He demonstrated improvements in scar mobility - head neck rotation and side bendingpost treatment . The patient will continue to benefit from ongoing skilled occupational therapy to progress toward set goals. Total Number of Visits Planned: 6 Planned Treatment Interventions: Therapeutic exercise (03260), Manual therapy (71383), Self-[place] [facility] management (71910) PLAN FOR NEXT VISIT: how is the homemade neck compression? wedge pillow for elevated sleep? how is home MLD going and home exer program? SUBJECTIVE: 8 weeks S/P L neck resection - pt has not ordered wedge pillow yet - plan to order soon- pt has completed 9 radiation treatments - [...] with diaphnratic breathing 10x, axillary nodes, supraclavicular openand activate - H&N anterior approach 2: skin inspection- neck tissue tender from radiation gentle scar massage 3: intraoral massage - L cheek Skilled Intervention: Manual skills to improve joint mobility, ROM, and decrease pain. Utilized anatomy knowledge of the therapist, and assessment of patient's response to intervention. Increase lymphatic fluid dynamics, increase skin extensibility and normalize sensation. Self-Alf Management: 1: reviewed wedge pillow 2: discussed [...] : [address]/Toby documented in this encounterBrecksville Va [facility]09-11-2024 History of Present illness Narrative* Yosef Taylor MD - 04/24/2024 10:59 PM EDT Radiation Oncology - On Treatment Review (OTR) [...] planned. Yosef Taylor MD documented in this encounterBrecksville [facility]09-09-2024 History of Present illness Narrative* Khadar Hill, - 04/22/2024 2:15 PM EDT HPI Patient presents today about 6 weeks [...] History of neck dissection documented in this encounterDoctors Hospital of [id number] History of Present illness Narrative* Komal Mendoza OTR/Toby - 04/16/2024 10:04 AM EDT Episode Visit Count: 2 Therapist That Will Accept/Oversee The Plan Of Care: Marcellus Mendoza - transfer of care from [facility] Start of Care Date: 03/28/24 Onset Date: 03/18/24 Patient Identified by Name and Date of : Yes REHABILITATION AND SPORTS THERAPY OCCUPATIONAL THERAPY TREATMENT NOTE ASSESSMENT: Scarlet Mayer tolerated the session with no issues. He demonstrated difficulty with H&N lymphedema due to Ca treatment for salivary gland Ca - pt is 7 weeks S/P L neck dissection, LNremoval and currently in radiation. Pt had R [...] from ongoing skilled occupational therapy to progress towardset goals. Total Number of Visits Planned: 7 PLAN FOR NEXT VISIT: take measuremnts assess progress, did pt order wedge - teach MLD anterior and posterior approach - may make compression for neck - any ringing in ears? SUBJECTIVE: Pt here today with supportive (transfer of care from [facility] to [facility] (closer to home). 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, He just started radiaiton, pt had R neck resecction years ago for H&N Ca - now has considerable lymph node and lymphatic system compromise - here today to address face neck swelling, mouth and jaw tig htness Pain: Pain Pain Level: (pt reports tightness [...] exer to address - internal swelling issues fromsurgery and radiaiton Skilled Intervention: Reviewed and educated [...] dynamics, increase skin extensibility and normalize sensation. Self-Alf Management: 1: lymphedema education, anatomy and prevention - educational folder issued 2: written handouts provided on above - incl meticuous skin care - s/s of infection to at risk swollen areas 3: reviewed H& N elevation - recommend wedge pillow for sleep - to purchase on [employer] 4: discussed future compression - Jobst Neck and L&R H&N - handouts provided and rationale discussed 5: educaeted pt on rationale of diaphramitc breathing - how to and pt performed in clinic supine onmat - to add to HEP 3x/day 6: [...] : 1005 Session Stop Time : 1100 LENY Kerns/Toby documented in this encounterBrecksville [facility]08-29-[facility] History of Present illness Narrative* Yosef Taylor MD - 04/11/2024 11:49 PM EDT Radiation Oncology - On Treatment Review (OTR) Note PATIENT NAME: Scarlet Mayer PATIENT Yosef Taylor MD documented in this encounterBrecksville [facility]08-15-[facility] History of Present illness Narrative* Brunilda Montalvo OTR/Toby - 03/28/2024 7:46 AM EDT TEpisode Visit Count: 1 Therapist That Will Accept/Oversee The Plan Of Care: Brunilda Montalvo Start of Care Date: 03/28/24 Onset Date: 03/18/24 Patient Identified by Name and Date of : Yes [facility] REHABILITATION AND SPORTS THERAPY OCCUPATIONAL THERAPY EVALUATION [...] will benefit from complete decongestive therapy including manuallymphatic drainage, myofascial stretch, active range of motion [...] Planned: 8 Planned Treatment Interventions: Therapeutic exercise (53481), Manual therapy (00762), Self-[place] [facility] management (14548) PLAN FOR NEXT VISIT:assess progress Patient demonstrates [...] 05/10/21. He developed recurrence in the LEFT neckand underwent left lingual tonsillectomy, left 1A-5 neck dissection (09/28 nodes, up to on 02/23/24. 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 [facility] NEW PATIENT VISIT Department of Hematology and Medical Oncology PATIENT NAME: Scarlet Mayer [facility] NO: [id number] DATE OF SERVICE: 03/25/2024 PCP: Tristian Pacheco [...] patchy positive staining but RNA in situ hybridizationstudies are negative for high-risk Human Papillomavirus. 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 Left lingual tonsil, excision: [...] the ilya periphery, definitive extranodal extension is notidentified in my opinion. HISTORY OF PRESENT ILLNESS: [...] this year which revealed new left level 2Alymph nodes concerning for recurrent carcinoma. These findings were confirmed on FDG PET imaging without any suggestion of distant metastasis. He subsequently underwent left tonsillectomy with left neck dissection on February 23, 2024 which confirmed the presence of recurrent mucoepidermoid carcinoma, again without definitive evidence of extranodal extension. 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 documented in this encounterBrecksville [facility]08-12-2024 Nurse Note* Holli Junior RN - 03/25/2024 2:57 PM EDT Additional intake questions: Has the patient had [...] referral to Social Work or Resource Center [facility]08-12-[facility] Nurse Note* Holli Junior RN - 03/25/2024 2:57 PM EDT Additional intake questions: Has the patient had [...] Work or Resource Center documented in this encounterBrecksville [facility]08-07-2024 History of Present illness Narrative* Yosef Taylor MD - 03/20/2024 11:41 PM EDT Radiation Oncology - Follow Up Note PATIENT NAME: Scarlet Mayer PATIENT Signed by: Yosef Taylor MD I spent a total of 40 minutes on the date of the service which included preparing to see the patient, jdnf-rs-cmpm patient care, and counseling and educating the patient/family/caregiver. This document has been created with the use of voice recognition technology. It may contain inaccuracies, misspellings, inaccurate syntax or inappropriate word context that are a result of the inadequacies/shortcomings of said technology/software. documented in this encounterBrecksville [facility]08-07-2024 History of Present illness Narrative* Yosef Taylor MD - 03/20/2024 12:00 AM EDT SCARLET MAYER [id number] 03/20/2024 [facility] Radiation Oncology Department SIMULATION NOTE DATE OF SIMULATION: 03/20/2024 THERAPIST: Tia Vasquez MACHINE: [employer] DIAGNOSIS: Malignant neoplasm of major salivary gland, [id number] AREA: NECK CONTRAST: IV Consent in Epic: [...] Yosef Taylor M.D. / NRS 1:26 PM documented in this encounterBrecksville [facility]08-05-2024 History of Present illness Narrative* Matt Monreal MD - 03/18/2024 9:00 AM EDT Radiation Oncology - New Patient/Consult Note PATIENT [...] tonsillectomy, left prefacial lymph node biopsy, left 1A- 5 neck dissection. This demonstrated 2/15 nodes involved [...] HISTORY: Scarlet Mayer is and lives in [place] with his . Smoked 0.25ppd for 16 [...] Palate elevates normally. Tongue soft, mobile, and midline.There are no visible or palpable mucosal lesions. TRISMUS: Mild DENTITION: Good LYMPH NODES: Status-post bilateral neck dissections. No palpable TEDDY. No wound drainage. Lymphedemapresent. PULMONARY: Non-labored breathing. No wheezing. CARDIOVASCULAR: Regular [...] carcinoma; see comment 02/23/24 Outside slides labeled [id number] (collected 02/23/2024) A. Left lingual tonsil, excision: [...] nodes (1/8), see comment. 01/29/21: Outside slides [id number], 01/29/2021, [facility] [place] A. Right pharynx, transoral partial pharyngectomy: - [...] no RAJIV, low-grade] cM0 mucoepidermoid carcinoma of unknownprimary metastatic to the RIGHT neck. He completed [...] with more than 50% of the total epia-ot-ofvm time of the visit in counseling / coordination of care. cc: Tristian Pacheco (Valeria) [address] [place] [phone] Yosef Taylor [address] [place] [address] [place] [id number] documented in this encounterBrecksville [facility]08-05-2024 Nurse Note* Holli Junior RN - 03/18/2024 8:58 AM EDT Additional intake questions: Has the patient had [...] referral to Social Work or Resource Center [facility]08-05-[facility] Nurse Note* Holli Junior RN - 03/18/2024 8:58 AM EDT Additional intake questions: Has the patient had [...] in place? No, Patient refused referral to [facility] Work or [facility] documented in this encounterBrecksville [facility]07-30-2024 Telephone encounter Note * Telephone Encounter - Nilsa Dunn - 03/12/2024 7:10 AM EDT Patient is scheduled. [facility]07-30-[facility]24 Miscellaneous Notes* Telephone Encounter - Nilsa Dunn - 03/12/2024 7:10 AM EDT Patient is scheduled. * Telephone Encounter - Nilsa Dunn - 03/06/2024 7:09 AM EDT Email sent to cancer answer line. Emailed cc'd to you clif * Telephone Encounter - Sahra Infante, JUDY - 03/05/2024 3:[address] Taylor, he would like pt to be seen by rad onc and med onc at [facility] for their opinion/recommendation. Please make referral and pt should be seen same day. Rad onc requested- Dr Matt Monreal, Med Onc- someone specializing in H&N treatment. Please contact pt with appts. Dr Taylor is happy to speak to him if he has questions about this. HERNANDEZ- please sign these new orders. Sahra Infante RN * Telephone Encounter - Nilsa Dunn - 03/05/2024 2:03 PM EDT Path sent for 2nd opinion Tifronnie c'cing you in this incase if gets to that point thanks. * Telephone Encounter - Felicia Kwok - 03/05/2024 1:47 PM EDT Records scanned. PET/CT images are uploaded, just waiting for the images from [facility] to come over. * Telephone Encounter - Sahra Infante RN - 03/04/2024 3:[address] Taylor spoke to Dr Hill regarding [...] [facility]. I did request the PET from [facility] to be pushed over. We will need to ask film library to process these ABEL. Records in HERNANDEZ folder to scan when you're available. I believe I printed everything. Tiff- Please arrange pathology overread once order is signed. Records including Path report are in for Angelica to scan. Done at [facility]. Also please keep an eye on if he orders the med onc consult so we can get this process started as well for Dr kincaid. He is known to him, but last appt was 2020. Thank you all! Sahra Infante RN documented in this encounterBrecksville Va / [facility]07-24-2024 Telephone encounter Note * Telephone Encounter - Nilsa Dunn - 03/06/2024 7:09 AM EDT Email sent to cancer answer line. Emailed cc'd to you clif [facility]07-23-2024 Telephone encounter Note* Telephone Encounter - Sahra Infante RN - 03/05/2024 3:[address] Taylor, he would like pt to be seen by rad onc and med onc at [facility] for their opinion/recommendation. Please make referral and pt should be seen same day. Rad onc requested- Dr Matt Monreal, Med Onc- someone specializing in H&N treatment. Please contact pt with appts. Dr Taylor is happy to speak to him if he has questions about this. HERNANDEZ- please sign these new orders. Sahra Infante, RN [facility]07-23-2024 Telephone encounter Note* Telephone Encounter - Nilsa Dunn - 03/05/2024 2:03 PM EDT Path sent for 2nd opinion Amanda ronquillo'cing you in this incase if gets to that point thanks. [facility]07-23-[facility] Telephone encounter Note* Telephone Encounter - Felicia Kwok - 03/05/2024 1:47 PM EDT Records scanned. PET/CT images are uploaded, just waiting for the images from [facility] to come over. [facility]07-22-2024 Telephone encounter Note* Telephone Encounter - Sahra Infante RN - 03/04/2024 3:[address] Taylor spoke to Dr Hill regarding [...] [facility]. I did request the PET from [facility] to be pushed over. We will need to ask film library to process these ABEL. Records in HERNANDEZ folder to scan when you're available. I believe I printed everything. Tiff- Please arrange pathology overread once order is signed. Records including Path report are in for Angelica to scan. Done at [facility]. Also please keep an eye on if he orders the med onc consult so we can get this process started as well for Dr kincaid. He is known to him, but last appt was 2020. Thank you all! Sahra Infante, RN [facility]04-13-2023 History of Present illness Narrative* Yosef Taylor MD - 11/24/2022 10:11 PM EDT Radiation Oncology - Follow Up Note PATIENT NAME: Scarlet Mayer PATIENT DIAGNOSIS/PATIENT IDENTIFICATION: Mr. Mayer is a a 46-year-old gentleman diagnosed a Stage IVB, [id number] low-grade mucoepidermoid carcinoma discovered in multiple lymph [...] tumor without extranodal extension and consensus recommendation foripsilateral postoperative radiation therapy alone which he completed on 05/10/2021 (6000 cGy in 30 fractions). INTERVAL HISTORY/ROS: Mr. Mayer returns to clinic today for routine follow-up approximately a year and a half after the completion of his radiation treatments and six months since his last visit on05/16/2023. In the interim, he has been following regularly with Dr. Hill with no concerns on hismost recent head and neck examination. Today reports no pain/discomfort in the head and neck area ex cept sensitivity to cold especially behind the ear. [...] as he continues with his normal activities withgood appetite and hydration and stable weight. He [...] a 46-year-old gentleman diagnosed a Stage IVB, [id number] low-grade mucoepidermoid carcinoma discovered in multiple lymph [...] a half out from the completion of hispostoperative radiation treatments to the head and neck [...] which included preparing to see the patient, akks-yc-znzn patient care, and counseling and educating the patient/family/caregiver. This document has been created with the use of voice recognition technology. It may contain inaccuracies, misspellings, inaccurate syntax or inappropriate word context that are a result of the inadequacies/shortcomings of said technology/software. documented in this encounterBrecksville [facility]10-13-2022 Miscellaneous Notes* Telephone Encounter - Tao Haq - 05/26/2022 11:06 AM EDT Appointments have been adjusted & confirmed with Paige. Tao Haq * Telephone Encounter - Sahra Infante RN - 05/25/2022 3:20 PM EDT MD Denisse Quintanilla LPN; Sahra Infante RN Please move up patients neck scan (cancel chest CT) to three months from the last scan and let the patient know. Thanks! HERNANDEZ PSS- please adjust and contact pt. Sahra Infante RN documented in this encounterBrecksville Va [facility]10-03-2022 History of Present illness Narrative* Yosef Taylor MD - 05/16/2022 11:53 PM EDT Radiation Oncology - Follow Up Note PATIENT NAME: Scarlet Mayer PATIENT Signed by: Yosef Taylor MD I spent a total of 20 minutes on the date of the service which included preparing to see the patient, bwfb-do-jcbk patient care, and counseling and educating the patient/family/caregiver. This document has been created with the use of voice recognition technology. It may contain inaccuracies, misspellings, inaccurate syntax or inappropriate word context that are a result of the inadequacies/shortcomings of said technology/software. documented in this encounterBrecksville [facility]09-28-2022 History of Present illness Narrative* Suzie French RN - 05/11/2022 9:00 AM EDT Radiology Service Progress Note DATE OF SERVICE: [...] the National Kidney Foundation website at kidney.org/professionals/kdoqi/gfr_calculator. eGFR- Date Value Ref Range Status 07/16/2021 >60 Final P.O.C.T. RESULTS: N/A May 11, 2022 TREATMENT: N/A IV SITE: Ambulatory: A peripheral IV was started in the Right antecubital site with a Angio cath: 20 gauge. IV SITE APPEARANCE: Clean,Dry and Intact SIGNATURE: Suzie French RN PATIENT NAME: Scarlet Mayer DATE: May 11, 2022 TIME: 9:12 AM * Mis Rojas RT(R) - 05/11/2022 9:00 AM EDT Radiology Service Progress Note PATIENT NAME: Scarlet Mayer DATE OF SERVICE: May 11, 2022 TIME: 9:24 AM PATIENT IDENTITY VERIFICATION COMPLETED USING TWO (2) IDENTIFIERS: Name and Date of confirmedby patient verbally. FALL SCREENING: Has the patient [...] 11, 2022 9:24 AM documented in this encounterBrecksville [facility]09-13-2022 Miscellaneous Notes* Telephone Encounter - Nilsa Ross Sec - 04/26/2022 9:07 AM EDT Called and spoke with patients r/s appointments with her. Thanks! * Telephone Encounter - Denisse Ervin LPN - 04/26/2022 8:57 AM EDT Images from the original note were not included. Nilsa: Will you please call Hiro or Paige to reschedule his CT scheduled 05/02/22. Dr. Taylor is recommending pushing it back 1-2 weeks after patient is feeling better from cold/sinus symptoms. Thanks BHAVNA Hopkins MD You 15 hours ago (5:56 PM) Would wait a week or two after he's feeling better. Thanks! HERNANDEZ * Telephone Encounter - Denisse Ervin LPN - 04/25/2022 3:23 PM EDT Paige, pt's , called stating that Hiro [...] advise. Denisse Ervin LPN documented in this encounterBrecksville Va [facility]03-11-2022 History of Present illness Narrative* Yosef Taylor MD - 10/22/2021 9:56 AM EST Radiation Oncology - Follow Up Note PATIENT NAME: Scarlet Mayer PATIENT DIAGNOSIS/PATIENT IDENTIFICATION: Mr. 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 INTERVAL HISTORY/ROS: Mr. Mayer returns to clinic today for routine follow-up approximately six months after the completion of his radiation treatments and three months since his last evaluation on07/20/2021. In the interim, he had repeat imaging [...] head and neck area but does note someresidual tightness in the neck with range of motion which continues to improve. He denies any soresor ulcers in the mouth or dry mouth [...] and hydration and stable weight. Every once disha while he does note some discomfort in [...] a 45-year-old gentleman diagnosed a Stage IVB, [id number] low-grade mucoepidermoid carcinoma discovered in multiple lymph [...] for continued evaluation/surveillance and I will plan tosee him back in 6 months with repeat imaging. The patient is aware to contact the clinic in the interim should any questions or concerns arise. Thank you for allowing us to participate in the care ofthis patient. Signed by: Yosef Taylor MD I spent a total of 20 minutes on the date of the service which included preparing to see the patient, znyi-xo-bpmk patient care and counseling and educating the patient/family/caregiver. This document has been created with the use of voice recognition technology. It may contain inaccuracies, misspellings, inaccurate syntax or inappropriate word context that are a result of the inadequacies/shortcomings of said technology/software. documented in this encounterBrecksville [facility]03-01-2022 History of Present illness Narrative* Kika Bonilla RN - 10/12/2021 8:45 AM EST Radiology Service Progress Note DATE OF SERVICE: [...] the National Kidney Foundation website at kidney.org/professionals/kdoqi/gfr_calculator. eGFR- Date Value Ref Range Status 07/16/2021 >60 Final P.O.C.T. RESULTS: N/A October 12, 2021 TREATMENT: N/A IV SITE: Ambulatory: A peripheral IV was started in the Right antecubital site with a Angio cath: 20 gauge. IV SITE APPEARANCE: Clean,Dry and Intact SIGNATURE: Kika Bonilla RN PATIENT NAME: Scarlet Mayer DATE: October 12, 2021 TIME: 8:54 AM * Mis Rojas RT(R) - 10/12/2021 8:45 AM EST Radiology Service Progress Note PATIENT NAME: Scarlet Mayer DATE OF SERVICE: October 12, 2021 TIME: 9:20 AM PATIENT IDENTITY VERIFICATION COMPLETED USING TWO (2) IDENTIFIERS: Name and Date of confirmedby patient verbally. FALL SCREENING: Has the patient [...] Site disposition Discontinued SIGNED BY: RT Lianne(Ryan) October 12, 2021 9:20 AM documented in this encounterBrecksville Va / [facility]12-03-2021 History of Present illness Narrative* Mis Rojas RT(R) - 07/16/2021 12:45 PM EST Radiology Service Progress Note PATIENT NAME: Scarlet Mayer DATE OF SERVICE: July 16, 2021 TIME: 1:39 PM PATIENT IDENTITY VERIFICATION COMPLETED USING TWO (2) IDENTIFIERS: Name and Date of confirmedby patient verbally. FALL SCREENING: Has the patient [...] 16, 2021 1:39 PM documented in this encounterBrecksville Va / [facility]12-03-2021 Nurse Note* Suzie French RN - 07/16/2021 12:45 PM EST Radiology Service Progress Note DATE OF SERVICE: [...] DATE: July 16, 2021 TIME: 1:06 PM [facility] Nurse Note* Suzie French RN - 07/16/2021 12:45 PM EST Radiology Service Progress Note DATE OF SERVICE: [...] 2021 TIME: 1:06 PM documented in this encounterBrecksville Va / [facility]07-02-2021 NoteTHJEN MAYER was presented at Head and Neck [...] optimal medical management. Electronic Signatures: Orlando Farooq (N MGR) (Signed 12-Feb-2021 10:47) Authored: Impression, Recommendations, Note, Disclaimer Last Updated: 12-Feb-2021 10:47 by Orlando Farooq (Rachael MGR)[facility] CenterDis[facility] summary Author Khadar Hill [facility] February 24, 2024 9:01amNote Date/TimeJuly 2023 8:55[place] [address] Discharge Summary Signed Patient: Scarlet Mayer MR#: [id number] : 1975 Acct:[id number] Age/Sex: 48 / M Adm Date: 4 Loc: 4N Room: 3W6207-[address]: Khadar Hill DO Copies to: [...] neck for an unrelated issue a few weeksago revealing large lymph nodes in the left [...] % (Auto) 82.5, Lymph % (Auto) 8.9, Bent % (Auto) 8.1, Eos % (Auto) 0.1, Baso % (Auto) 0.4, Nucleat RBC Rel Count 0.0, Neut # (Auto)10.9 H, Lymph #(Auto) 1.2, Bent # (Auto) 1.1 H, Eos # (Auto) 0.0, Baso # (Auto) 0.1, PHA CreatinineClear 101.70, Sodium 138, Potassium 4.2, Chloride 106, Carbon Dnvgehj18.0, Anion Gap 10.2, BUN 18, Creatinine 1.15, Est GFR (CKD-EPI) > 60.0, [id number] H, Calcium 8.5 L Documented By: Khadar Hill DO 02/24/24 085 1 Signed By: <Electronically signed by DO Khadar Hill> 02/24/24 0901 [facility] Work Phone: Evaluation noteNo assessment information available [facility]* Diagnosis Malignant neoplasm of head, face and neck (HCC) Malignant neoplasm of head, face, and neck 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 [facility] 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 Malignant neoplasm of parotid gland [facility] 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 Malignant neoplasm of parotid gland [facility] noteNo InformationNort Spredfashion Other Evaluxymuu note* Diagnosis Onset Date Resolution Status Metastatic cancer to cervical lymph node s acute [facility] Work Phone: Evaluation note* Diagnosis [...] face, and neck [facility]* Diagnosis Head and neck cancer (HCC) Malignant neoplasm of head, face, and neck Malignant neoplasm of head, face and neck (HCC) Malignant neoplasm of head, face, and [facility] 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, unspecified [facility] Malignant neoplasm of head, face and neck (HCC) Malignant neoplasm of head, face, and neck [facility] Diagnosis 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, unspecified [facility] Diagnosis 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/HCC)- Primary Salivary gland cancer (CMS/HCC) Malignant neoplasm of salivary gland, unspecified documented in this encounter [facility]* Diagnosis 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, unspecified [facility] Diagnosis Lymphedema- Primary Other lymphedema 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 neoplasm of salivary gland, unspecified [facility] Diagnosis Salivary gland cancer (CMS/HCC)- Primary Malignant neoplasm of salivary gland, unspecified 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/HCC) documented in this encounter [facility]* Diagnosis Lymphedema- Primary Other lymphedema [facility] Diagnosis 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, unspecified 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 [facility] Diagnosis Lymphedema- Primary Other lymphedema 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 neoplasm of salivary gland, unspecified [facility] Lymphedema- Primary Other lymphedema 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 neoplasm of salivary gland, unspecified [facility] Diagnosis 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 neoplasm of salivary gland, unspecified 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 [facility] Diagnosis 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/HCC)- Primary History of neck dissection documented in this encounter [facility] note* Diagnosis 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/HCC)- Primary Salivary gland cancer (CMS/HCC) Malignant neoplasm of salivary gland, unspecified documented in this encounter [facility] note* Diagnosis 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, unspecified [facility] Encounter for follow-up surveillance of salivary gland cancer- Primary 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/HCC) History of neck dissection documented in this encounter [facility]* Diagnosis 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/HCC)- Primary 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, face, or neck with unknown primary site (CMS/HCC) documented in this encounter [facility] HealthcareEvaluation note* Diagnosis Onset Date Resolution Status Admit Date Rash acuteApril 2024 8:56am [facility] Work Phone: Evaluation note* Diagnosis 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, unspecified [facility] Diagnosis 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/HCC)- Primary 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, face, or neck with unknown primary site (CMS/HCC) History of neck dissection documented in this encounter [facility]* Diagnosis Salivary gland cancer (HCC)- Primary Malignant neoplasm of salivary gland, unspecified History of neck dissection documented in this encounter [facility] HealthcareEvaluation note* Diagnosis Metastatic cancer to cervical lymph nodes (HCC)- Primary Salivary gland cancer (HCC) Malignant neoplasm of salivary gland, unspecified History of neck dissection documented in this encounter [facility] HealthcareEvaluation note* Diagnosis Elevated troponin- Primary Other abnormal blood chemistry Lactic acidosis Acidosis Elevated troponin Other abnormal blood chemistry Mural thickening of sigmoid colon Other specified disorder of intestines Dehydration MURPHY (acute kidney injury) Acute kidney failure, unspecified documented in this encounter [facility] Phone: History general Narrative - Reported* Type Description Date Medical History Problem Title : comp liance with medical treatment, Problem Description : compliance with medical treatment, Problem Comment : Done, Problem Status : Active,, Medical HistoryProblem Title : Depression Screening, Problem Description : Depression Screening, Problem Comment :Negative, Problem Status : Active,, Medical HistoryProblem Title : Knee right swelling, Problem Description : Knee right swelling, Problem Comment : diffuse, Problem Status : Active,,Medical HistoryProblem Title : no known problems, Problem Description : no known problems, Problem Comment : F, Problem Status : Active,,Medical HistoryProblem Title : past medical history E&M, Problem Description : past medical history E&M, Problem Comment : spontaneous pneumothorax with chest tube, Problem Status : Active,,Medical HistoryProblem Title : past medical history reviewed, Problem Description : past medical history reviewed,Problem Comment : reviewed - no changes required, Problem Status : Active,,Medical HistoryProblem Title : PHQ2 Questionairre Score, Problem Description : PHQ2 Questionairre Score, Problem Co mment : 0, Problem Status : Active,,Medical HistoryProblem Title : PHQ9 Question One score, Problem Description : PHQ9 Question One score, Problem Comment : 0, Problem Status : Active,,Medical HistoryProblem Title : PHQ9 Question Two score, Problem Description : PHQ9 Question Two score, Problem Comment : 0, Problem Status : Active,,Medical HistoryProblem Title : right knee stability CCC, Problem Description : right knee stability CCC, Problem Comment : unstable anterior cruciate, Problem Status : Active,,Medical HistoryProblem Title : very low density lipoproteins, Problem Description : very low density lipoproteins, Problem Comment : 51.6, Problem Status : Active,,Surgical HistoryProblem Title : past surgical history reviewed, Problem Description : past surgical history reviewed, Problem Comment : reviewed - no changes required, Problem Status : Active,Surgical HistoryProblem Title : surgical procedures, hx of, Problem Description : surgical procedures, hx of, Problem Comment : Julio C manzano 2009, Problem Status : Active,Surgical HistoryProblem Title : surgical radical dissection of neck - 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 Hill, Problem Status : Active, Codesion Other Hospital Discharge instructions Additional Instructions 1. Sleep on 2 pillows 2. Small amount of Vaseline to nick twice daily 3. Diet as tolerated, avoid sharp, acidic and granular foods 4. Plenty of liquids 5. Tylenol for discomfort or prescribed narcotic 6. See Dr. Hill at 2 PM on Monday [facility] Work Phone: Hospital Discharge instructions* Attachments The following attachments cannot be sent through Care Everywhere. * Weakness: Generalized (Welsh) [facility]: Progress note Author Khadar Hill [facility] February 24, 2024 8:51amNote Date/TimeJuly 2023 8:[place] [address] ENT Progress Note Signed Patient: Scarlet Mayer MR#: [id number] : 1975 Acct:[id number] Age/Sex: 48 / M Adm Date: 4 Loc: 4N Room: 4B7806-5 Type: ADM IN Attending Dr: Khadar Hill [...] % (Auto) 82.5, Lymph % (Auto) 8.9, Bent % (Auto) 8.1, Eos % (Auto) 0.1, Baso % (Auto) 0.4, Nucleat RBC Rel Count 0.0, Neut # (Auto)10.9 H, Lymph #(Auto) 1.2, Bent # (Auto) 1.1 H, Eos # (Auto) 0.0, Baso # (Auto) 0.1, PHA CreatinineClear 101.70, Sodium 138, Potassium 4.2, Chloride 106, Carbon Iubklmy50.0, Anion Gap 10.2, BUN 18, Creatinine 1.15, Est GFR (CKD-EPI) > 60.0, Sygznea153 H, Calcium 8.5 L A&P - ENT [...] signed by DO Khadar Hill> 02/24/24 0851 [facility] Work Phone: Reason for referral (narrative)* Unlisted Procedure Code (Routine) - New RequestSpecialtyDiagnoses / ProceduresReferred By Contact Referred To Contact Procedures NO HEPARIN OR ENOXAPARIN ORDERED Bubba Urias MD [address] [place] [address] Phone: tel: fax: Referral IDStatusReasonStart DateExpiration DateVisits RequestedVisits [id number] Movwhon24/ * Unlisted Procedure Code (Routine) - New RequestSpecialtyDiagnoses / Procedures Referred By ContactReferred To Contact Procedures PATIENT ON THERAPEUTIC ANTICOAGULATION Bubba Urias MD [address] [place] [address] Phone: tel: fax: Referral IDStatusReasonStart DateExpiration DateVisits RequestedVisits [id number] [id number] * Unlisted Procedure Code (Routine) - New RequestSpecialtyDiagnoses / Procedures Referred By ContactReferred To Contact Procedures INPATIENT ADMISSION NOTIFICATION Bubba Urias MD [address] [place] [address] Phone: tel: fax: Referral IDStatusReasonStart DateExpiration DateVisits RequestedVisits [id number] Qrzcnop85/ * Radiology (Emergency) - Pending ReviewSpecialtyDiagnoses / ProceduresReferred By ContactReferred To Contact Procedures ECG Bubba Urias MD [address] [place] [address] Phone: tel: fax: Referral IDStatusReasonStart DateExpiration DateVisits RequestedVisits [id number] Rgsrjm67/ [employer] Phone: Chief Complaint and Reason for Visit Chief Complaint Right neck mass Chief Complaint Right neck mass neck mass c77.0 Metastatic Cancer Chief Complaint C76.0 Chief Complaint History low grade mu coepidermoid ca C76.0 recurrent salivary gland cancer recurrent salivary gland cancerReason for VisitMetastatic cancer to cervical lymph nodes Chief Complaint Admit Date rash on face November 29, 2024 8:5 6am Reason for Visit Admit Date Rash November 29, 2024 8:5 6am Advance Directives No Advanced Directives Records Found Advance Directive Response Recorded Date/ Time Advance Directives No January 06 2:01pm Date ActivatedDate ZzmgahyndfzIqzgrobj39/29/2025 9:40 PM Summary Purpose Family History No Family History Records Found Reason for Referral SpecialtyDiagnoses / ProceduresReferred By ContactReferred To ContactCT IMAGING Diagnoses Malignant neoplasm of head, face and neck (HCC) Procedures CT CHEST W IVCON DIAGNOSTIC COMPUTED TOMOGRAPHY THORAX W/CONTRAST Yosef Taylor MD [address] [place] [address] [place] [address] Ct Imaging Referral IDStatusReasonStart DateExpiration DateVisits RequestedVisits [id number] Review Auto-Generated Referral /[id number] / ProceduresReferred By ContactReferred To ContactCT IMAGING Diagnoses Malignant neoplasm of parotid gland (HCC) Procedures CT NECK SOFT TISSUE W IVCON CT SOFT TISSUE NECK W/CONTRAST MATERIAL Yosef Taylor MD [address] [place] [address] [place] [address] Ct Imaging Referral IDStatusReasonStart DateExpiration DateVisits RequestedVisits [id number] Review Auto-Generated Referral /[id number] / ProceduresReferred By ContactReferred To ContactCT IMAGING Diagnoses Malignant neoplasm of parotid gland (HCC) Procedures CT CHEST W IVCON DIAGNOSTIC COMPUTED TOMOGRAPHY THORAX W/CONTRAST Yosef Taylor MD [address] [place] [address] [place] [address] Ct Imaging Referral IDStatusReasonStart DateExpiration DateVisits RequestedVisits [id number] Review Auto-Generated Referral 4/4/376745/[id number] IDStatusReasonStart DateExpiration DateVisits RequestedVisits [id number] Review Auto-Generated Referral /[id number] / ProceduresReferred By ContactReferred To ContactOncology / [facility] Diagnoses Malignant neoplasm of parotid gland (HCC) Procedures CONSULT TO HEMATOLOGY/ONCOLOGY OFFICE/OUTPATIENT [facility] 60 MINUTES Yosef Taylor MD [address] [place] [address] [place] [address] Referral IDStatusReasonStart DateExpiration DateVisits RequestedVisits [id number] PCP Requested Referral /[id number] / ProceduresReferred By ContactReferred To ContactRadiation Oncology Diagnoses Malignant neoplasm of parotid gland (HCC) Procedures RAD/ONC CONSULT OFFICE/OUTPATIENT [facility] 60 MINUTES Yosef Taylor MD [address] [place] [address] [place] [address] Matt Monreal MD [address] [place] [address] Referral IDStatusReasonStart DateExpiration DateVisits RequestedVisits [id number] PCP Requested Referral /[id number] / ProceduresReferred By ContactReferred To ContactOCCUPATIONAL THERAPY Diagnoses Malignant neoplasm of salivary gland (HCC) Procedures CONSULT TO LYMPHEDEMA THERAPY OFFICE/OUTPATIENT [facility] 60 MINUTES Matt Monreal MD [address] [place] [address] Ot [facility] [id number] [place] [address] Referral IDStatusReasonStart DateExpiration DateVisits RequestedVisits [id number] Auto-Generated Referral /[id number] / ProceduresReferred By ContactReferred To Contact Diagnoses Malignant neoplasm of salivary gland (HCC) Procedures CT SIM PLANNING RADIATION ONCOLOGY THER RAD SIMULAJ-AIDED FIELD SETTING COMPLEX Yosef Taylor MD [address] [place] [address] [address] [place], [facility] Referral IDStatusReasonStart DateExpiration DateVisits RequestedVisits [id number] Request PCP Requested Referral /[id number] / ProceduresReferred By ContactReferred To ContactCT IMAGING Diagnoses Malignant neoplasm of head, face and neck (HCC) Procedures CT CHEST W IVCON DIAGNOSTIC COMPUTED TOMOGRAPHY THORAX W/CONTRAST Yosef Taylor MD [address] [place] [address] [address] [place], [facility] [place] [address] Referral IDStatusReasonStart DateExpiration DateVisits RequestedVisits [id number] Auto-Generated Referral [id number] / ProceduresReferred By ContactReferred To ContactCT IMAGING Diagnoses Malignant neoplasm of parotid gland (HCC) Procedures CT NECK SOFT TISSUE W IVCON CT SOFT TISSUE NECK W/CONTRAST MATERIAL Yosef Taylor MD [address] [place] [address] [address], [facility] [place] [address] Referral IDStatusReasonStart DateExpiration DateVisits RequestedVisits [id number] Auto-Generated Referral [id number] / ProceduresReferred By ContactReferred To ContactCT IMAGING Diagnoses Head and neck cancer (HCC) Malignant neoplasm of head, face and neck (HCC) Procedures CT NECK SOFT TISSUE W IVCON CT SOFT TISSUE NECK W/CONTRAST MATERIAL Yosef Taylor MD [address] [place] [address] [address] [place], [facility] [place] [address] Referral IDStatusReasonStart DateExpiration DateVisits RequestedVisits [id number] Auto-Generated Referral /[id number] / ProceduresReferred By ContactReferred To ContactCT IMAGING Diagnoses Head and neck cancer (HCC) Malignant neoplasm of head, face and neck (HCC) Procedures CT CHEST W IVCON DIAGNOSTIC COMPUTED TOMOGRAPHY THORAX W/CONTRAST Yosef Taylor MD [address] [place] [address] [address], [facility] Ct Imaging [place] [address] Referral IDStatusReasonStoxford DateExpiration DateVisits RequestedVisits [id number] Auto-Generated Referral [id number] / ProceduresReferred By ContactReferred To ContactCT IMAGING Diagnoses Malignant neoplasm of head, face and neck (HCC) Procedures CT NECK SOFT TISSUE W IVCON CONTRAST CAT OF NECK TISSUE Yosef Taylor MD [address] [place] [address] [address] [place], [facility] Ct Imaging [place] [address] Referral IDStatusReasonSmyrna DateExpiration DateVisits RequestedVisits [id number] Auto-Generated Referral [id number] / ProceduresReferred By ContactReferred To ContactCT IMAGING Diagnoses Malignant neoplasm of head, face and neck (HCC) Procedures CT CHEST W IVCON CAT SCAN OF CHEST CONTRAST Yosef Taylor MD [address] [place] [address] [address], [facility] Ct Imaging [place] [address] Referral IDStatusReasonStoxford DateExpiration DateVisits RequestedVisits [id number] Auto-Generated Referral [id number] / ProceduresReferred By ContactReferred To ContactCT IMAGING 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) Procedures CT NECK SOFT TISSUE W IVCON CT SOFT TISSUE NECK W/CONTRAST MATERIAL Yosef Taylor MD [address] [place] [address] [place] [address] [place] [address] Referral IDStatusReasonStart DateExpiration DateVisits RequestedVisits [id number] Auto-Generated Referral [id number] / ProceduresReferred By ContactReferred To ContactCT IMAGING 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) Procedures CT CHEST W IVCON DIAGNOSTIC COMPUTED TOMOGRAPHY THORAX W/CONTRAST Yosef Taylor MD [address] [place] [address] Ct Imaging [facility] Referral IDStatusReasonStart DateExpiration DateVisits RequestedVisits [id number] Auto-Generated Referral eferral IDStatusReasonStart DateExpiration DateVisits RequestedVisits [id number] Review Auto-Generated Referral Patient Cleared - Admin/Center Mgr/Director advise to proceed or did not respond 1Referral IDStatusReasonStart DateExpiration DateVisits RequestedVisits [id number] Review Auto-Generated Referral Patient Cleared - Admin/Center Mgr/Director advise to proceed or did not respond [id number] / ProceduresReferred By ContactReferred To ContactCT IMAGING Diagnoses Malignant neoplasm of salivary gland (HCC) Procedures CT CHEST W IVCON DIAGNOSTIC COMPUTED TOMOGRAPHY THORAX W/CONTRAST Yosef Taylor MD [address] [place] [address] [place] [address] Ct Imaging [facility] Referral IDStatusReasonStart DateExpiration DateVisits RequestedVisits [id number] Review Auto-Generated Referral [id number] / ProceduresReferred By ContactReferred To ContactCT IMAGING Diagnoses Malignant neoplasm of salivary gland (HCC) Procedures CT NECK SOFT TISSUE W IVCON CT SOFT TISSUE NECK W/CONTRAST MATERIAL Yosef Taylor MD [address] [place] [place] [address] [place] [address] Referral IDStatusReasonStart DateExpiration DateVisits RequestedVisits [id number] Review Auto-Generated Referral Additional Source Comments Goals (unrecognized section and [...] section and content) DATE CREATED AUTHOR 04/15/2021 [facility] DATE CREATED AUTHOR AUTHOR'S ORGANIZ ATION 07/21/2021 [facility] DATE CREATED AUTHOR AUTHOR'S ORGANIZ ATION 10/29/2021 [facility] DATE CREATED AUTHOR AUTHOR'S ORGANIZ ATION 04/06/2024 [facility] DATE CREATED AUTHOR AUTHOR'S ORGANIZ ATION 06/04/2025 [facility] DATE CREATED AUTHOR AUTHOR'S ORGANIZ ATION 06/06/2025 [facility] DATE CREATED AUTHOR AUTHOR'S ORGANIZ ATION 06/14/2025 [facility] Source Comments (unrecognize d section and content) In the event this informatio n is protected by the Federal Confidentiality of Alcohol and Drug Abuse Patient Records regulations: The Federal rules restrict any use of the information to criminally investigate or prosecute any alcohol or drug abuse patient.[facility] the event this information is protected by the Federal Confidentiality of Alcohol and Drug Abuse Patient Records regulations: The Federal rules restrict any use of the information to criminally investigate or prosecute any alcohol or drug abuse patient.[facility] the event this information is protected by the Federal Confidentiality of Alcohol and Drug Abuse Patient Records regulations: The Federal rules restrict any use of the information to criminally investigate or prosecute any alcohol or drug abuse patient.[facility] the event this information is protected by the Federal Confidentiality of Alcohol and Drug Abuse Patient Records regulations: The Federal rules restrict any use of the information to criminally investigate or prosecute any alcohol or drug abuse patient.[facility] the event this information is protected by the Federal Confidentiality of Alcohol and Drug Abuse Patient Records regulations: The Federal rules restrict any use of the information to criminally investigate or prosecute any alcohol or drug abuse patient.[facility] the event this information is protected by the Federal Confidentiality of Alcohol and Drug Abuse Patient Records regulations: The Federal rules restrict any use of the information to criminally investigate or prosecute any alcohol or drug abuse patient.[facility] the event this information is protected by the Federal Confidentiality of Alcohol and Drug Abuse Patient Records regulations: The Federal rules restrict any use of the information to criminally investigate or prosecute any alcohol or drug abuse patient.[facility] the event this information is protected by the Federal Confidentiality of Alcohol and Drug Abuse Patient Records regulations: The Federal rules restrict any use of the information to criminally investigate or prosecute any alcohol or drug abuse patient.[facility] the event this information is protected by the Federal Confidentiality of Alcohol and Drug Abuse Patient Records regulations: The Federal rules restrict any use of the information to criminally investigate or prosecute any alcohol or drug abuse patient.[facility] the event this information is protected by the Federal Confidentiality of Alcohol and Drug Abuse Patient Records regulations: The Federal rules restrict any use of the information to criminally investigate or prosecute any alcohol or drug abuse patient.[facility] the event this information is protected by the Federal Confidentiality of Alcohol and Drug Abuse Patient Records regulations: The Federal rules restrict any use of the information to criminally investigate or prosecute any alcohol or drug abuse patient.[facility] the event this information is protected by the Federal Confidentiality of Alcohol and Drug Abuse Patient Records regulations: The Federal rules restrict any use of the information to criminally investigate or prosecute any alcohol or drug abuse patient.[facility] the event this information is protected by the Federal Confidentiality of Alcohol and Drug Abuse Patient Records regulations: The Federal rules restrict any use of the information to criminally investigate or prosecute any alcohol or drug abuse patient.[facility] the event this information is protected by the Federal Confidentiality of Alcohol and Drug Abuse Patient Records regulations: The Federal rules restrict any use of the information to criminally investigate or prosecute any alcohol or drug abuse patient.[facility] HospitalIn the event this information is protected by the Federal Confidentiality of Alcohol and Drug Abuse Patient Records regulations: The Federal rules restrict any use of the information to criminally investigate or prosecute any alcohol or drug abuse patient.[facility] HospitalIn the event this information is protected by the Federal Confidentiality of Alcohol and Drug Abuse Patient Records regulations: The Federal rules restrict any use of the information to criminally investigate or prosecute any alcohol or drug abuse patient.[facility] HospitalIn the event this information is protected by the Federal Confidentiality of Alcohol and Drug Abuse Patient Records regulations: The Federal rules restrict any use of the information to criminally investigate or prosecute any alcohol or drug abuse patient.[facility] HospitalIn the event this information is protected by the Federal Confidentiality of Alcohol and Drug Abuse Patient Records regulations: The Federal rules restrict any use of the information to criminally investigate or prosecute any alcohol or drug abuse patient.[facility] HospitalIn the event this information is protected by the Federal Confidentiality of Alcohol and Drug Abuse Patient Records regulations: The Federal rules restrict any use of the information to criminally investigate or prosecute any alcohol or drug abuse patient.[facility] HospitalIn the event this information is protected by the Federal Confidentiality of Alcohol and Drug Abuse Patient Records regulations: The Federal rules restrict any use of the information to criminally investigate or prosecute any alcohol or drug abuse patient.[facility] HospitalIn the event this information is protected by the Federal Confidentiality of Alcohol and Drug Abuse Patient Records regulations: The Federal rules restrict any use of the information to criminally investigate or prosecute any alcohol or drug abuse patient.[facility] HospitalIn the event this information is protected by the Federal Confidentiality of Alcohol and Drug Abuse Patient Records regulations: The Federal rules restrict any use of the information to criminally investigate or prosecute any alcohol or drug abuse patient.[facility] HospitalIn the event this information is protected by the Federal Confidentiality of Alcohol and Drug Abuse Patient Records regulations: The Federal rules restrict any use of the information to criminally investigate or prosecute any alcohol or drug abuse patient.[facility] HospitalIn the event this information is protected by the Federal Confidentiality of Alcohol and Drug Abuse Patient Records regulations: The Federal rules restrict any use of the information to criminally investigate or prosecute any alcohol or drug abuse patient.[facility] HospitalIn the event this information is protected by the Federal Confidentiality of Alcohol and Drug Abuse Patient Records regulations: The Federal rules restrict any use of the information to criminally investigate or prosecute any alcohol or drug abuse patient.[facility] HospitalIn the event this information is protected by the Federal Confidentiality of Alcohol and Drug Abuse Patient Records regulations: The Federal rules restrict any use of the information to criminally investigate or prosecute any alcohol or drug abuse patient.[facility] HospitalIn the event this information is protected by the Federal Confidentiality of Alcohol and Drug Abuse Patient Records regulations: The Federal rules restrict any use of the information to criminally investigate or prosecute any alcohol or drug abuse patient.[facility] HospitalIn the event this information is protected by the Federal Confidentiality of Alcohol and Drug Abuse Patient Records regulations: The Federal rules restrict any use of the information to criminally investigate or prosecute any alcohol or drug abuse patient.[facility] HospitalIn the event this information is protected by the Federal Confidentiality of Alcohol and Drug Abuse Patient Records regulations: The Federal rules restrict any use of the information to criminally investigate or prosecute any alcohol or drug abuse patient.[facility] HospitalIn the event this information is protected by the Federal Confidentiality of Alcohol and Drug Abuse Patient Records regulations: The Federal rules restrict any use of the information to criminally investigate or prosecute any alcohol or drug abuse patient.[facility] HospitalIn the event this information is protected by the Federal Confidentiality of Alcohol and Drug Abuse Patient Records regulations: The Federal rules restrict any use of the information to criminally investigate or prosecute any alcohol or drug abuse patient.[facility] HospitalIn the event this information is protected by the Federal Confidentiality of Alcohol and Drug Abuse Patient Records regulations: The Federal rules restrict any use of the information to criminally investigate or prosecute any alcohol or drug abuse patient.[facility] HospitalIn the event this information is protected by the Federal Confidentiality of Alcohol and Drug Abuse Patient Records regulations: The Federal rules restrict any use of the information to criminally investigate or prosecute any alcohol or drug abuse patient.[facility] HospitalIn the event this information is protected by the Federal Confidentiality of Alcohol and Drug Abuse Patient Records regulations: The Federal rules restrict any use of the information to criminally investigate or prosecute any alcohol or drug abuse patient.[facility] HospitalIn the event this information is protected by the Federal Confidentiality of Alcohol and Drug Abuse Patient Records regulations: The Federal rules restrict any use of the information to criminally investigate or prosecute any alcohol or drug abuse patient.[facility] HospitalIn the event this information is protected by the Federal Confidentiality of Alcohol and Drug Abuse Patient Records regulations: The Federal rules restrict any use of the information to criminally investigate or prosecute any alcohol or drug abuse patient.[facility] HospitalIn the event this information is protected by the Federal Confidentiality of Alcohol and Drug Abuse Patient Records regulations: The Federal rules restrict any use of the information to criminally investigate or prosecute any alcohol or drug abuse patient.[facility] HospitalIn the event this information is protected by the Federal Confidentiality of Alcohol and Drug Abuse Patient Records regulations: The Federal rules restrict any use of the information to criminally investigate or prosecute any alcohol or drug abuse patient.[facility] HospitalIn the event this information is protected by the Federal Confidentiality of Alcohol and Drug Abuse Patient Records regulations: The Federal rules restrict any use of the information to criminally investigate or prosecute any alcohol or drug abuse patient.[facility] HospitalIn the event this information is protected by the Federal Confidentiality of Alcohol and Drug Abuse Patient Records regulations: The Federal rules restrict any use of the information to criminally investigate or prosecute any alcohol or drug abuse patient.[facility] Reason for Visit (unrecogniz ed section and content) ReasonCommentsOT Progress NoteSpecialtyDiagnoses / ProceduresReferred By Contact Referred To ContactOccupational Therapy / OCCUPATIONAL THERAPY Diagnoses Lymphedema Procedures EST RS OT LYMPHEDEMA Matt Monreal MD [address] [place] [address] Komal Mendoza OTR/L [address] [place] [address] Referral IDStatusReasonStart DateExpiration DateVisits RequestedVisits [id number] Request/[id number]hv TherapySpecialtyDiagnoses / ProceduresReferred By ContactReferred To Contact [facility] Diagnoses Lymphedema Procedures THERAPEUTIC EXERCISES RE, EA 15 MIN. Matt Monreal MD [address] [place] [address] [facility] [address] [place] [address] Referral IDStatusAshleyasonSmyrna DateExpiration DateVisits RequestedVisits [id number]/1/202412/[id number] neoplasm of salivary gland (Treatment visitSpecialtyDiagnoses / Procedures Referred By ContactReferred To ContactRadiation Oncology / RADIATION ONCOLOGY Diagnoses Follow-up exam Location: SA-ON TREATMENT REV Activity: WO-OTV Procedures OFFICE/OUTPATIENT ESTABLISHED HIGH MDM 40 MIN ON TREATMENT VISIT Yosef Taylor MD [address] [place] [address] Yosef Taylor MD [address] [place] [address] [place] [address] Referral IDStatusReasonStart DateExpiration DateVisits RequestedVisits [id number]/11/202412/31/[id number] neoplasm of salivary glandTreatment visitReasonCommentsRadiology CTSpecialty Diagnoses / ProceduresReferred By ContactReferred To ContactCT IMAGING Diagnoses Malignant neoplasm of head, face and neck (HCC) Procedures CT NECK SOFT TISSUE W IVCON CONTRAST CAT OF NECK TISSUE Yosef Taylor MD [address] [place] [address] [place] [address] [facility] [place] [address] Referral IDStatusReasonStart DateExpiration DateVisits RequestedVisits [id number] Auto-Generated Referral /[id number] / ProceduresReferred By ContactReferred To ContactRadiology / RADIO PET CT SAND Diagnoses Malignant neoplasm of head, face and neck CT Chest & Neck (Waiting for Orders) Procedures CT SOFT TISSUE NECK W/CONTRAST MATERIAL DIAGNOSTIC COMPUTED TOMOGRAPHY THORAX W/CONTRAST CT CHEST Yosef Barnes MD [address] [place] [address] [place] [address] [place] [address] Ref[facility]StatusRe[facility] DateExpiration DateVisits RequestedVisits [id number]/1/20224/[id number] and Neck Cancer ReasonCommentsAppointmentPatient QuestionReasonCommentsFuture AppointmentReason CommentsHead and Neck CancerReasonCommentsOrdersPatient UpdateFuture Appointment ReasonCommentsConsultSpecialtyDiagnoses / ProceduresReferred By ContactReferred To ContactRadiation Oncology Diagnoses Malignant neoplasm of parotid gland (HCC) Procedures RAD/ONC CONSULT OFFICE/OUTPATIENT [facility] 60 MINUTES Yosef Taylor MD [address] [place] [address] [place] [address] Matt Monreal MD [address] [place] [address] Referral IDStatusReasonStart DateExpiration DateVisits RequestedVisits [id number] PCP Requested Referral /[id number] EVALSpecialtyDiagnoses / ProceduresReferred By ContactReferred To ContactOCCUPATIONAL THERAPY Diagnoses Malignant neoplasm of salivary gland (HCC) Procedures CONSULT TO LYMPHEDEMA THERAPY OFFICE/OUTPATIENT [facility] 60 MINUTES Matt Monreal MD [address] [place] [address] [address] [address] [place] [address] Referral IDStatusReasonStart DateExpiration DateVisits RequestedVisits [id number] Auto-Generated Referral /[id number] DateCommentsSimulation Request Form03/20/2024 ReasonCommentsConsultSpecialtyDiagnoses / ProceduresReferred By ContactReferred To ContactOncology / [facility] Diagnoses Malignant neoplasm of parotid gland (HCC) Procedures CONSULT TO HEMATOLOGY/ONCOLOGY OFFICE/OUTPATIENT [facility] 60 MINUTES Yosef Taylor MD [address] [facility] [place] [address] Referral IDStatusReasonStart DateExpiration DateVisits RequestedVisits [id number] PCP Requested Referral /[id number] / ProceduresReferred By ContactReferred To ContactRadiation Oncology / RADIATION ONCOLOGY Diagnoses Malignant neoplasm of major salivary gland, unspecified head and neck (mask, IV contrast; sim dr taylor Procedures SIMULATION Yosef Barnes MD [address] [place] [address] [place] [address] Yosef Taylor MD [address] [place] [address] [place] [address] Referral IDStatusReasonStart DateExpiration DateVisits RequestedVisits [id number]/26/202410/[id number]ze On-treatment VisitSpecialtyDiagnoses / ProceduresReferred By ContactReferred To ContactCT IMAGING Diagnoses Malignant neoplasm of head, face and neck (HCC) Procedures CT CHEST W IVCON DIAGNOSTIC COMPUTED TOMOGRAPHY THORAX W/CONTRAST Yosef Taylor MD [address] [place] [address] [place] [address] [place] [address] Referral IDStatusReasonStart DateExpiration DateVisits RequestedVisits [id number] Auto-Generated Referral [id number] month reckReasonCommentsPatient UpdateNurse Call post radiationReasonCommentsCancer6 week cancer recheckReason CommentsOrdersSpecialtyDiagnoses / ProceduresReferred By ContactReferred To ContactCT IMAGING 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 EMS started 18 G LAC with NS BP 104/63 HR 125 94 % 66 L NC BS 155.SpecialtyDiagnoses / ProceduresReferred By ContactReferred To Contact [address] [address] Phone: tel: [address] [address] Phone: tel: Referral IDStatusReasonStart DateExpiration DateVisits RequestedVisits [id number] Care Teams (unrecognized sec tion and content) Team MemberRelationshipSpecialtyStart DateEnd Date Tristian Pacheco MD [address] [facility] [place] [address] PCP - GeneralFamily Practice02/18/21 Santiago Villalba MD [address] [facility] [place] [address] PhysicianHematology/Oncology03/12/21 Magalis Voss, CONCRETE BLOCK MOLDER.EXCEL SPECIALIST [address] [facility] [place] [address] Nurse PractitionerHematology/Oncology03/12/21 Yosef Taylor MD [address] [facility] [place] [address] PhysicianRadiation Oncology03/12/21Team MemberRelationshipSpecialtyStart DateEnd Date Tristian Pacheco MD [address] [facility] [place] [address] PCP - GeneralFamily Practice02/18/21 Santiago Villalba MD [address] [facility] [place] [address] PhysicianHematology/Oncology03/12/21 Magalis Voss, CONCRETE BLOCK MOLDER.EXCEL SPECIALIST [address] [facility] [place] [address] Nurse PractitionerHematology/Oncology03/12/21 Yosef Taylor MD [address] [facility] [place] [address] PhysicianRadiation Oncology03/12/21Team MemberRelationshipSpecialtyStart DateEnd Date Tristian Pacheco MD [address] [facility] [place] [address] PCP - GeneralFamily Medicine02/18/21 Santiago Villalba MD [address] [facility] [address] [place], [place] [address] PhysicianHematology/Oncology03/12/21 Magalis Voss, CONCRETE BLOCK MOLDER.[facility] [address] [place] [place] [address] Nurse PractitionerHematology/Oncology03/12/21 Yosef Taylor MD [address] [place] [address] PhysicianRadiation Oncology03/12/21Team MemberRelationshipSpecialtyStart DateEnd Date Tristian Pacheco MD [address] [place] [address] PCP - [facility]02/18/21 Santiago Villalba MD [address] [facility] [place] [address] PhysicianHematology/Oncology03/12/21 Magalis Voss, CONCRETE BLOCK MOLDER.EXCEL SPECIALIST [address] [facility] [place] [address] Nurse PractitionerHematology/Oncology03/12/21 Yosef Taylor MD [address] [place] [address] PhysicianRadiation Oncology03/12/21Team MemberRelationshipSpecialtyStart DateEnd Date Tristian Pacheco MD [address] [facility] [place] [phone] PCP - [facility] Medicine02/18/21 Santiago Villalba MD [address] [place] [address] PhysicianHematology/Oncology03/12/21 Magalis Voss, ALIREZA.EXCEL SPECIALIST [address] [facility] [place] [address] Nurse PractitionerHematology/Oncology03/12/21 Yosef Taylor MD [address] [facility] [place] [address] PhysicianRadiation Oncology03/12/21 Team Status: Inactive Member Role Status Dates Khadar Hill DO Attending Provider Active S tart: January 10, 2024 End: January 10, 2024 Team Status: Active Member Role Status Dates Tristian Pacheco MD Primary Care Provider Active Team Status: Inactive Member Role Status Yifan Hill DO Attending Provider Active S tart: January 15, 2024 End: January 15, 2024Semaj Thornton Care ProviderActiveStart: January 15, 2024 End: January 15, 2024 Team Status: Inactive Member Role Status Dates Khadar Hill DO Attending Provider Active S tart: January 10, 2024 End: January 10, 2024Semaj Thornton Care ProviderActiveStart: January 10, 2024 End: January 10, 2024 Team Status: Inactive Member Role Status Yifan Pacheco MD Primary Care Provider Active Start: February 09, 2024 End: February 08gela Hill DOAttending ProviderActiveStart: February 09, 2024 End: February 09, 2024 Team Status: Inactive Member Role Status Dates Tristian Pacheco MD Primary Care Provider Active Start: February 23, 2024 End: February 23gela Hill DOAdmit Provider, Attending ProviderActive Start: February 23, 2024 End: February 24, 2024Team MemberRelationshipSpecialtyStart DateEnd Date Tristian Pacheco MD [address] [facility] [place] [phone] PCP - GeneralFamily Medicine02/18/21 Santiago Villalba MD [address] [place] [address] PhysicianHematology/Oncology03/12/21 Magalis Voss, CONCRETE BLOCK MOLDER.EXCEL SPECIALIST [address] [place] [address] Nurse PractitionerHematology/Oncology03/12/21 Yosef Taylor MD [address] [place] [address] PhysicianRadiation Oncology03/12/21Team MemberRelationshipSpecialtyStart DateEnd Date Tristian Pacheco MD [address] [place] [phone] PCP - GeneralFamily Medicine02/18/21 Santiago Villalba MD [address] [place] [address] PhysicianHematology/Oncology03/12/21 Magalis Voss, CONCRETE BLOCK MOLDER.EXCEL SPECIALIST [address] [place] [address] Nurse PractitionerHematology/Oncology03/12/21 Yosef Taylor MD [address] [place] [address] PhysicianRadiation Oncology03/12/21Team MemberRelationshipSpecialtyStart DateEnd Date Tristian Pacheco MD [address] [place] [phone] PCP - GeneralFamily Medicine02/18/21 Santiago Villalba MD [address] [place] [address] PhysicianHematology/Oncology03/12/21 Magalis Voss, CONCRETE BLOCK MOLDER.EXCEL SPECIALIST [address] [facility] [place] [address] Nurse PractitionerHematology/Oncology03/12/21 Yosef Taylor MD [address] [facility] [place] [address] PhysicianRadiation Oncology03/12/21Team MemberRelationshipSpecialtyStart DateEnd Date Tristian Pacheco MD [address] [place] [address] PCP - GeneralFamily Medicine02/18/21 Santiago Villalba MD [address] [facility] [place] [address] PhysicianHematology/Oncology03/12/21 Magalis Voss, CONCRETE BLOCK MOLDER.EXCEL SPECIALIST [address] [facility] [place] [address] Nurse PractitionerHematology/Oncology03/12/21 Yosef Taylor MD [address] [facility] [place] [address] PhysicianRadiation Oncology03/12/21Team MemberRelationshipSpecialtyStart DateEnd Date Tristian Pacheco MD [address] [place] [phone] PCP - GeneralFamily Medicine02/18/21 Santiago Villalba MD [address] [place] [address] PhysicianHematology/Oncology03/12/21 Magalis Voss, CONCRETE BLOCK MOLDER.EXCEL SPECIALIST [address] [facility] [place] [address] Nurse PractitionerHematology/Oncology03/12/21 Yosef Taylor MD [address] [facility] [place] [address] PhysicianRadiation Oncology03/12/21Team MemberRelationshipSpecialtyStart [place] [address] [place] [phone] PCP - Generalmily Medicine02/18/21 Santiago Villalba MD [address] [facility] [place] [address] PhysicianHematology/Oncology03/12/21 Magalis Voss, CONCRETE BLOCK MOLDER.EXCEL SPECIALIST [address] [facility] [place] [address] Nurse PractitionerHematology/Oncology03/12/21 Yosef Taylor MD [address] [facility] [place] [address] PhysicianRadiation Oncology03/12/21Team MemberRelationshipSpecialtyStart DateEnd Date Tristian Pacheco MD [address] [place] [address] PCP - GeneralH[facility]ally Medicine02/18/21 Santiago Villalba MD [address] [place] [address] PhysicianHematology/Oncology03/12/21 Magalis Voss, CONCRETE BLOCK MOLDER.EXCEL SPECIALIST [address] [facility] [place] [address] Nurse PractitionerHematology/Oncology03/12/21 Yosef Taylor MD [address] [facility] [place] [address] PhysicianRadiation Oncology03/12/21Team MemberRelationshipSpecialtyStart DateEnd Date Tristian Pacheco MD [address] [place] [address] PCP - [facility] Medicine02/18/21 Santiago Villalba MD [address] [facility] [place] [address] PhysicianHematology/Oncology03/12/21 Magalis Voss, CONCRETE BLOCK MOLDER.EXCEL SPECIALIST [address] [facility] [place] [address] Nurse PractitionerHematology/Oncology03/12/21 Yosef Taylor MD [address] [facility] [place] [address] PhysicianRadiation Oncology03/12/21Team MemberRelationshipSpecialtyStart DateEnd Date Tristian Pacheco MD [address] [place] [address] PCP - [facility] Medicine02/18/21 Santiago Villalba MD [address] [facility] [place] [address] PhysicianHematology/Oncology03/12/21 Magalis Voss, CONCRETE BLOCK MOLDER.EXCEL SPECIALIST [address] [facility] [place] [address] Nurse PractitionerHematology/Oncology03/12/21 Yosef Taylor MD [address] [facility] [place] [address] PhysicianRadiation Oncology03/12/21Team MemberRelationshipSpecialtyStart [place] [address] [place] [phone] PCP - [facility] Medicine02/18/21 Santiago Villalba MD [address] [facility] [place] [address] PhysicianHematology/Oncology03/12/21 Magalis Voss, CONCRETE BLOCK MOLDER.EXCEL SPECIALIST [address] [facility] [place] [address] Nurse PractitionerHematology/Oncology03/12/21 Yosef Taylor MD [address] [facility] [place] [address] PhysicianRadiation Oncology03/12/21Team MemberRelationshipSpecialtyStart DateEnd Date Tristian Pacheco MD [address] [place] [address] PCP - Generalmily Medicine02/18/21 Santiago Villalba MD [address] [facility] [place] [address] PhysicianHematology/Oncology03/12/21 Magalis Voss, CONCRETE BLOCK MOLDER.EXCEL SPECIALIST [address] [facility] [place] [address] Nurse PractitionerHematology/Oncology03/12/21 Yosef Taylor MD [address] [facility] [place] [address] PhysicianRadiation Oncology03/12/21Team MemberRelationshipSpecialtyStart DateEnd Date Tristian Pacheco MD [address] [place] [phone] PCP - Generalmily Medicine02/18/21 Santiago Villalba MD [address] [facility] [place] [address] PhysicianHematology/Oncology03/12/21 Magalis Voss, CONCRETE BLOCK MOLDER.EXCEL SPECIALIST [address] [facility] [place] [address] Nurse PractitionerHematology/Oncology03/12/21 Yosef Taylor MD [address] [facility] [place] [address] PhysicianRadiation Oncology03/12/21Team MemberRelationshipSpecialtyStart DateEnd Date Tristian Pacheco MD [address] [place] [address] PCP - Generalmily Medicine02/18/21 Santiago Villalba MD [address] [facility] [place] [address] PhysicianHematology/Oncology03/12/21 Magalis Voss, CONCRETE BLOCK MOLDER.EXCEL SPECIALIST [address] [facility] [place] [address] Nurse PractitionerHematology/Oncology03/12/21 Yosef Taylor MD [address] [facility] [place] [address] PhysicianRadiation Oncology03/12/21Team MemberRelationshipSpecialtyStart DateEnd Date Tristian Pacheco MD [address] [place] [phone] PCP - Generalmily Medicine02/18/21 Santiago Villalba MD [address] [facility] [place] [address] PhysicianHematology/Oncology03/12/21 Magalis Voss, CONCRETE BLOCK MOLDER.EXCEL SPECIALIST [address] [facility] [place] [address] Nurse PractitionerHematology/Oncology03/12/21 Yosef Taylor MD [address] [facility] [place] [address] PhysicianRadiation Oncology03/12/21Team MemberRelationshipSpecialtyStart DateEnd Date Tristian Pacheco MD [address] [place] [phone] PCP - GeneralFamily Medicine02/18/21 Santiago Villalba MD [address] [place] [address] PhysicianHematology/Oncology03/12/21 Magalis Voss, CONCRETE BLOCK MOLDER.EXCEL SPECIALIST [address] [facility] [place] [address] Nurse PractitionerHematology/Oncology03/12/21 Yosef Taylor MD [address] [facility] [place] [address] PhysicianRadiation Oncology03/12/21Team MemberRelationshipSpecialtyStart DateEnd Date Tristian Pacheco MD [address] [place] [phone] PCP - GeneralFamily Medicine02/18/21 Santiago Villalba MD [address] [facility] [place] [address] PhysicianHematology/Oncology03/12/21 Magalis Voss, CONCRETE BLOCK MOLDER.EXCEL SPECIALIST [address] [facility] [place] [address] Nurse PractitionerHematology/Oncology03/12/21 Yosef Taylor MD [address] [facility] [place] [address] PhysicianRadiation Oncology03/12/21Team MemberRelationshipSpecialtyStart DateEnd Date Tristian Pacheco MD [address] [place] [phone] PCP - GeneralFamily Medicine02/18/21 Santiago Villalba MD [address] [place] [address] PhysicianHematology/Oncology03/12/21 Magalis Voss, CONCRETE BLOCK MOLDER.EXCEL SPECIALIST [address] [place] [address] Nurse PractitionerHematology/Oncology03/12/21 Yosef Taylor MD [address] [place] [address] PhysicianRadiation Oncology03/12/21Team MemberRelationshipSpecialtyStart DateEnd Date Tristian Pacheco MD [facility] [place] [phone] PCP - GeneralFamily Medicine02/18/21 Santiago Villalba MD [address] [facility] [place] [address] PhysicianHematology/Oncology03/12/21 Magalis Voss, CONCRETE BLOCK MOLDER.EXCEL SPECIALIST [address] [place] [address] Nurse PractitionerHematology/Oncology03/12/21 Yosef Taylor MD [address] [place] [address] PhysicianRadiation Oncology03/12/21Team MemberRelationshipSpecialtyStart DateEnd Date Tristian Pacheco MD [address] [place] [phone] PCP - GeneralFamily Medicine04/22/24 Khadar Hill, DO [address] [place] [address] Otolaryngology12/18/23Team MemberRelationshipSpecialtyStart DateEnd Date Tristian Pacheco MD [address] [place] [phone] PCP - GeneralFamily Medicine04/22/24 Khadar Hill, DO [address] [place] [address] Otolaryngology12/18/23Team MemberRelationshipSpecialtyStart DateEnd Date Tristian Pacheco MD [address] [place] [phone] PCP - GeneralFamily Medicine02/18/21 Santiago Villalba MD [address] [place] [address] PhysicianHematology/Oncology03/12/21 Magalis Voss, CONCRETE BLOCK MOLDER.EXCEL SPECIALIST [address] [place] [address] Nurse PractitionerHematology/Oncology03/12/21 Yosef Taylor MD [address] [place] [address] PhysicianRadiation Oncology03/12/21Team MemberRelationshipSpecialtyStart DateEnd Date Tristian Pacheco MD [address] [place] [phone] PCP - [facility]02/18/21 Santiago Villalba MD [address] [place] [address] PhysicianHematology/Oncology03/12/21 Magalis Voss, CONCRETE BLOCK MOLDER.EXCEL SPECIALIST [address] [place] [address] Nurse PractitionerHematology/Oncology03/12/21 Yosef Taylor MD [address] [place] [address] PhysicianRadiation Oncology03/12/21Team MemberRelationshipSpecialtyStart DateEnd Date Tristian Pacheco MD [address] [place] [phone] PCP - GeneralFamily Medicine02/18/21 Santiago Villalba MD [address] [place] [address] PhysicianHematology/Oncology03/12/21 Magalis Voss, CONCRETE BLOCK MOLDER.EXCEL SPECIALIST [address] [place] [address] Nurse PractitionerHematology/Oncology03/12/21 Yosef Taylor MD [address] [place] [address] PhysicianRadiation Oncology03/12/21Team MemberRelationshipSpecialtyStart DateEnd Date Tristian Pacheco MD [address] [facility] [place] [phone] PCP - GeneralFamily Medicine04/22/24 Khadar Hill, DO [address] [place] [address] Otolaryngology12/18/23Team MemberRelationshipSpecialtyStart DateEnd Date Tristian Pacheco MD [address] [facility] [place] [phone] PCP - GeneralFamily Medicine04/22/24 Khadar Hill, DO [address] [place] [address] Otolaryngology12/18/23Team MemberRelationshipSpecialtyStart DateEnd Date Tristian Pacheco MD [address] [facility] [place] [phone] PCP - GeneralFamily Medicine02/18/21 Santiago Villalba MD [address] [facility] [place] [address] PhysicianHematology/Oncology03/12/21 Magalis Voss APRN.EXCEL SPECIALIST [address] [facility] [place] [address] Nurse PractitionerHematology/Oncology03/12/21 Yosef Taylor MD [address] [facility] [address] [place], [place] [address] PhysicianRadiation Oncology03/12/21Team MemberRelationshipSpecialtyStart DateEnd Date Tristian Pacheco MD [address] [place] [phone] PCP - GeneralFamily Medicine02/18/21 Santiago Villalba MD [address] [place], [facility] PhysicianHematology/Oncology03/12/21 Magalis Voss, ALIREZA.EXCEL SPECIALIST [address] [place], [facility] Nurse PractitionerHematology/Oncology03/12/21 Yosef Taylor MD [address] [place], [facility] PhysicianRadiation Oncology03/12/21Team MemberRelationshipSpecialtyStart DateEnd Date Tristian Pacheco MD [address] [place] [phone] PCP - GeneralFamily Medicine02/18/21 Santiago Villalba MD [address] [place], [facility] PhysicianHematology/Oncology03/12/21 Magalis Voss, CONCRETE BLOCK MOLDER.EXCEL SPECIALIST [address] [place] [address] Nurse PractitionerHematology/Oncology03/12/21 Yosef Taylor MD [address] [place], [facility] PhysicianRadiation Oncology03/12/21Team MemberRelationshipSpecialtyStart DateEnd Date Tristian Pacheco MD [address] [place] [phone] PCP - GeneralFamily Medicine02/18/21 Santiago Villalba MD [address] [place] [address] PhysicianHematology/Oncology03/12/21 Magalis Voss, ALIREZA.EXCEL SPECIALIST [address] [place] [address] Nurse PractitionerHematology/Oncology03/12/21 Yosef Taylor MD [address] [place] [address] PhysicianRadiation Oncology03/12/21Team MemberRelationshipSpecialtyStart DateEnd Date Tristian Pacheco MD [address] [place] [phone] PCP - GeneralFamily Medicine02/18/21 Santiago Villalba MD [address] [place] [address] PhysicianHematology/Oncology03/12/21 Magalis Voss, ALIREZA.EXCEL SPECIALIST [address] [place] [address] Nurse PractitionerHematology/Oncology03/12/21 Yosef Taylor MD [address] [place] [address] PhysicianRadiation Oncology03/12/21Team MemberRelationshipSpecialtyStart DateEnd Date Tristian Pacheco MD [address] [place] [phone] PCP - GeneralFamily Medicine04/22/24 Khadar Hill DO [address] [place] [address] Otolaryngology12/18/23 Team Status: Inactive Member Role Status Dates Tristian Pacheco MD Primary Care Provider Active Start: November 29, 2024 End: November 29, 2024Felicia Mendoza APRN FARM MACHINERY ASSEMBLER-CAttending ProviderActive Start: November 29, 2024 End: November 29, 2024Team MemberRelationshipSpecialtyStart DateEnd Date Tristian Pacheco MD [address] [place] [phone] PCP - GeneralFamily Medicine02/18/21 Santiago Villalba MD [address] [facility] [place] [address] PhysicianHematology/Oncology03/12/21 Magalis Voss APRN.EXCEL SPECIALIST [address] [facility] [place] [address] Nurse PractitionerHematology/Oncology03/12/21 Yosef Taylor MD [address] [facility] [place] [address] PhysicianRadiation Oncology03/12/21Team MemberRelationshipSpecialtyStart DateEnd Date Tristian Pacheco MD [address] [place] [address] PCP - Generalmily Medicine04/22/24 Khadar Hill DO [address] [place] [address] Otolaryngology12/18/23Team MemberRelationshipSpecialtyStart DateEnd Date Tristian Pacheco MD [address] [place] [address] PCP - [facility] Medicine04/22/24 Khadar Hill, DO [address] [place] [address] Otolaryngology12/18/23Team MemberRelationshipSpecialtyStart DateEnd Date Tristian Pacheco MD [address] [place] [address] PCP - [facility] Medicine04/22/24 Khadar Hill, [address] [place] [address] Otolaryngology12/18/23Team MemberRelationshipSpecialtyStart DateEnd Date Tristian Pacheco MD [address] [place] [address] PCP - [facility] Medicine04/22/24 Khadar Hill, [address] [place] [address] Otolaryngology12/18/23Team MemberRelationshipSpecialtyStart DateEnd Date Tristian Pacheco MD [address] [facility] [place] [phone] PCP - GeneralFamily Kvmjhloy55/29/25 Scheduled Active and Recently Administ ered Medications (unrecognized section and content) Medication Order aspirin chewable tablet 324 mg (COMPLETED) 324 mg, Oral, ONCE, 1 dose, On Mon06/11/25 at 2145 * 2207 (Given - Provider: Gladys Miller RN) iohexol (OMNIPAQUE) 350 MG/ML injection 100 mL (COMPLETED) 100 mL, Intravenous, ONCE, 1 dose, On Mon06/11/25 at 1430, Extravasation Risk. * 1404 (Given - Radiology - Provider: Ashwin Martinez) Morphine injection 4 mg (COMPLETED) 4 mg, Intravenous, ONCE, 1 dose, On Mon06/11/25 at 2130 * 2053 (Given - Provider: Milly Rosas RN) Ondansetron 4mg/2ml (ZOFRAN) injection 4 mg (COMPLETED) 4 mg, Intravenous, ONCE, 1 dose, On Mon06/11/25 at 1630 * 1551 (Given - Provider: Dayna France RN) Ondansetron 4mg/2ml (ZOFRAN) injection 4 mg (COMPLETED) 4 mg, Intravenous, ONCE, 1 dose, On Mon06/11/25 at 1915 * 1840 (Given - Provider: Loren Lucio RN) Prochlorperazine (COMPAZINE) injection 10 mg (COMPLETED) 10 [...] * 1243 ($$New Bag$$ - Provider: Loren Lucio RN) * 1357 (Stopped - Provider: Loren [...] 1 dose, On Lexus 06/12/25 at 0830 * 0815 (Given - Radiology - Provider: Aziza Ordoñez) Technetium tc 99m sestamibi (SESTAMIBI) 32.6 millicurie (COMPLETED) 32.6 millicurie, Intravenous, ONCE, 1 dose, On Lexus 06/12/25 at 1015 * 1001 (Given - Radiology - Provider: Aziza Ordoñez) Medication Order Sodium chloride 0.9% IV solution Intravenous, at [...] on Mon06/11/25 at 2140, Until Lexus 06/12/25 [id number], Nausea / Vomiting, 1st line Senna (SENOKOT) tablet 8.6 mg 8.6 mg, Oral, DAILY NEEDED, Starting on Mon06/11/25 at 2140, Until Lexus 06/12/25 at 1550, Constipation 1st Line Order Group 1: Ondansetron 4mg/2ml (ZOFRAN) injection 4 mgJump to med 4 mg, Intravenous, EVERY 6 HOURS NEEDED, Starting on Mon06/11/25 at 2140, Until Lexus 06/12/25 [id number], Nausea / Vomiting, 1st line Or Ondansetron (ZOFRAN-ODT) disintegrating tablet 4 mgJump to med 4 mg, Oral, EVERY 6 HOURS NEEDED, Starting on 06/11/25 at 2140, Until Lexus 06/12/25 at 1550, Nausea / Vomiting, 1st line FOR RECORDS PERTAINING TO PATIENTS WHO ARE [...] BE BASED ON THE PRIMARY CLINICAL RECORDS. [facility] [employer] [facility]. provides no warranty or guarantee of the accuracy or completeness of information in this document.
[2025-06-23 16:28] LABS: Anion Gap 11.5; Blood Urea Nitrogen 16.0 mg/dL (7.0-18.0); Calcium 9.1 mg/dL (8.5-10.1); Carbon Dioxide 28.4 mmol/L (21.0-32.0); Chloride 103 mmol/L (98-107); Creatine Kinase 143 U/L (39-308); Estimated GFR (African America >60 (>=60 mL/min/1.73m^2); Estimated GFR (Non-African Ame >60 (>=60 mL/min/1.73m^2); Glucose 95 mg/dL (74-106); Potassium 3.9 mmol/L (3.5-5.1); Sodium 139 mmol/L (136-145); Thyroid Stimulating Hormone 11.849 uIU/mL (0.358-3.740)
== END 2025-06-23 15:07 | disposition home or self-care (01) ==
PROVIDERS: PCP Family Medicine; Visit Provider Family Medicine
DX: R74.8 Abnormal levels of other serum enzymes (principal); R79.89 Other specified abnormal findings of blood chemistry; R94.6 Abnormal results of thyroid function studies
CPT/HCPCS: 36415; 80048; 82550; 84439; 84443